=== PATIENT | female | born 1940 | race Caucasian/White ===

== ENCOUNTER 2021-07-03 12:00 | Inpatient (IN) | payer OTHER, SELFPAY ==
[2021-07-03] VITALS (7 sets, daily range): BP systolic 150–180; BP diastolic 83–100; PULSE 76–101; RESP 15–96; TEMP 36.6–36.8; O2SAT 94–100; BMI 26.5
--- NOTE | ~2021-07-03 | XR_ITS ---
EXAMINATION: XR chest 2V DATE: 07/04/2021 10:50 INDICATION: Shortness of breath TECHNIQUE: AP and lateral views of the chest are obtained. COMPARISON: 07/03/2021 FINDINGS: A diffuse interstitial pattern persists but has improved. There are trace pleural effusions . No pneumothorax is identified. Cardiomegaly is noted. There is severe thoracic spondylosis. IMPRESSION: 1. Cardiomegaly with improving pulmonary edema Reviewed, dictated and finalized at location B.
--- NOTE | ~2021-07-03 | CT_ITS ---
EXAMINATION: CT abdomen pelvis wo con EXAM DATE: 07/07/2021 09:06 INDICATION: Fever, colitis. TECHNIQUE: Spiral CT of the abdomen and pelvis was performed without contrast. Axial, coronal and s agittal images of the abdomen and pelvis were reviewed. The dose-length product (DLP) for this exami nation was 271.75 mGy-cm. The exposure was tailored according to patient size (auto mA exposure cont rol), and iterative reconstruction (ASIR) was used as additional dose reduction technique. There is no prior study for comparison. FINDINGS: The liver, spleen, adrenal glands and pancreas are unremarkable. Gallbladder is unremarkab le. No biliary obstruction. There is no nephrolithiasis or hydronephrosis. Exophytic homogeneously hyperdense left renal lesion measuring 1 cm likely hemorrhagic cyst. Another similar sized region pos terior to this probably also hemorrhagic cyst. The uterus is not identified and has likely been surg ically resected. The bladder is unremarkable. There is no retroperitoneal or pelvic lymphadenopathy . There is extensive scattered arterial sclerotic disease. The appendix is not positively visualized. There is no pericecal inflammatory change to suggest appe ndicitis. There is mild sigmoid colonic diverticulosis. There is no adjacent inflammatory change to suggest diverticulitis. There is no evidence of colonic wall edema. The stomach and small bowel are unremarkable. There is expected amount of colonic stool. No free intraperitoneal gas. There is cardiomegaly and small pericardial effusion. No pleural effusions. Bibasilar dependent groun dglass opacity, could be atelectasis but edema or pneumonia also possible. The lung bases are unrema rkable. There are no osteoblastic or osteolytic lesions identified. There is mild to moderate thorac olumbar dextroscoliosis. IMPRESSION: 1. No acute intra-abdominal findings. 2. Mild colonic diverticulosis. 3. Bibasilar groundglass opacity, could be atelectasis. Edema or pneumonia not excludable. 4. Cardiomegaly, small pericardial effusion. Reviewed, dictated and finalized at location A.
--- NOTE | ~2021-07-03 | XR_ITS ---
EXAMINATION: XR chest 1V portable DATE: 07/07/2021 06:08 INDICATION: Fever TECHNIQUE: frontal view of the chest was obtained. COMPARISON: Chest radiograph dated 07/04/2021 FINDINGS: Cardiomegaly with diffuse perihilar and lower lung predominant increased interstitial pattern most alba spicious for mild pulmonary edema although pneumonia not excludable. No pleural effusion or pneumotho rax. IMPRESSION: 1. Diffuse increased interstitial pattern most likely congestive heart failure related mild pulmonary edema versus less likely pneumonia. 2. Cardiomegaly. Reviewed, dictated and finalized at location A.
--- NOTE | ~2021-07-03 | MR_ITS ---
EXAMINATION: MR brain/brain stem wo con EXAM DATE: 07/04/2021 11:12 INDICATION: Unresponsive episode. Temporary change in awareness. Left-sided deficit. TECHNIQUE: Magnetic resonance imaging (MRI) of the brain/brain stem obtained without contrast. Sagitt al T1, axial diffusion, gradient echo (T2*), T1, T2, FLAIR sequences obtained. Correlation is made t o head CT from 07/03/2021. FINDINGS: Small old right frontoparietal lobe infarction. Small old right periventricular infarction. Small old right cerebellar infarction. Some right periventricular T2 shine through, no acute infarct ion suspected. There is mild microangiopathy and moderate cerebral atrophy. There is no acute hemorrh age seen on the T2*, a hemosiderin sensitive sequence. No intraparenchymal brain mass. The ventricle s are normal in size. There are no extra-axial collections. Flow voids are seen in the cerebral art eries on the T2-weighted sequences consistent with their expected patency. Patient has had bilateral ocular lens surgery. Soft tissue is unremarkable. Left maxillary sinus is completely opacified wi th mucoperiosteal thickening and fluid. IMPRESSION: 1. Small old right-sided infarctions. 2. Age related findings. 3. Opacified left maxillary sinus. Reviewed, dictated and finalized at location A.
--- NOTE | ~2021-07-03 | CT_ITS ---
EXAMINATION: CT brain wo con EXAM DATE: 07/03/2021 12:42 INDICATION: Falls, on blood thinners. TECHNIQUE: Spiral CT of the head was performed without contrast. Axial, coronal and sagittal images were reviewed. The dose-length product (DLP) for this examination was 605.33 mGy-cm. The exposure w as tailored according to patient size, and iterative reconstruction (ASIR) was used as additional dos e reduction technique. There is no prior study for comparison. FINDINGS: There is no acute intraparenchymal hemorrhage. No evidence of intraparenchymal brain mass lesion. No evidence of acute infarction. Please note that initial head CT has limited sensitivity f or small or acute infarctions. There is old small right frontal lobe infarction. There are 2 small o ld right cerebellar infarctions. Small old right periventricular infarction. There is mild to moderat e periventricular and subcortical hypodensity, nonspecific but probably related to small vessel ische jay disease. There is moderate to severe prominence of the sulci and ventricles related to cerebral atrophy. There is intracranial carotid arteriosclerosis. There are no extra-axial collections. T here is no mass effect or midline shift. Patient has had bilateral ocular lens surgery. Soft tissue is unremarkable. Nearly completely opacified left maxillary sinus with fluid and mucoperiosteal thi ckening. Mastoid air cells are well aerated. IMPRESSION: 1. No acute intracranial findings. 2. Chronic age related findings. 3. Old small right-sided infarctions. Reviewed, dictated and finalized at location A.
--- NOTE | ~2021-07-03 | XR_ITS ---
EXAMINATION: XR chest 1V EXAM DATE: 07/03/2021 12:47 INDICATION: Syncope, hypertension, atrial fibrillation, recent falls. TECHNIQUE: Portable AP frontal chest x-ray was obtained. There is no prior study for comparison. FINDINGS: There is cardiomegaly and pulmonary vascular congestion. No confluent consolidation, pneumo thorax or pleural effusion suspected. There are bony degenerative changes. There is aortic arterioscl erosis. IMPRESSION: 1. Cardiomegaly, pulmonary vascular congestion. Reviewed, dictated and finalized at location A.
--- NOTE | 2021-07-03 12:16 | ECG_ITS ---
Measurements Intervals [place] Rate: 72 P: [place]: 0 QRS: -5 QRSD: 86 T: -35 QT: 414 QTc: 455 Interpretive Statements ATRIAL FIBRILLATION VENTRICULAR PREMATURE COMPLEX CONSIDER INFERIOR INFARCT, AGE INDETERMINATE BORDERLINE ST-T WAVE ABNORMALITY- ANTEROLAT/HIGH LAT LEADS BASELINE ARTIFACT- I, II, III, AVR, AVL, AVF, V1, V3-V6 ABNORMAL ECG Electronically Signed On 07-03-2021 15:01:55 CDT by Kodi Gan D.O.
--- NOTE | 2021-07-03 12:19 | ED.WEAKNESS ---
HPI - Weakness General Chief complaint: Weakness Stated complaint: lower extremity weakness Time Seen by Provider: 07/03/21 12:07 Source: patient and EMS History of Present Illness HPI Narrative: 80-year-old female poor historian but history of left CVA approximately a month ago recently moved to the area. Family called EMS because patient has a history of recent falls. Patient states she does not remember falling--she just ends up on the ground. She denies tripping or losing her balance. She denies syncope or lightheadedness. She says she used to be on medicines for high blood pressure but she is not now. She is not on medicines for diabetes. She says she is on a blood thinner but does not know what it is. No fever, no slurred speech, intermittent headache none now. Patient denies chest pain, no shortness of breath, no nausea no vomiting. States she has not been eating because she has not felt like it. Patient recently moved in with her sons and used to live on her own in [place]. She has recently completed PT for her left CVA. Related Data Home Medications Medication Instructions Recorded Confirmed apixaban [Eliquis] 2.5 mg BID 07/03/21 07/03/21 aspirin [Adult Aspirin] 81 mg PO DAILY 07/03/21 07/03/21 atorvastatin 80 mg DAILY 07/03/21 07/03/21 doxazosin 2 mg HS 07/03/21 07/03/21 levothyroxine 125 mcg DAILY 07/03/21 07/03/21 losartan-hydrochlorothiazide 1 tablet DAILY 07/03/21 07/03/21 metoprolol succinate 100 mg PO DAILY 07/03/21 07/03/21 Allergies Allergy/AdvReac Type Severity Reaction Status Date / Time No Known Drug Allergies Allergy Unknown Unknown Verified 07/03/21 12:39 Review of Systems Review of Systems: CONSTITUTIONAL: no fever, alert, no appartent distress EYES: no vision changes, no eye pain ENT: no rhinorrhea, no sore throat, no difficulty swallowing CARDIOVASCULAR: no chest pain, no leg edema, no palpitations RESPIRATORY: no cough, no shortness of breath, no hemoptysis GASTROINTESTINAL: no abdominal pain, no nausea, no vomiting, no diarrhea, does complain of decreased appetitie GENITOURINARY: no flank pain, no dysuria, no hematuria SKIN: no rash, no jaundice MUSCULOSKELETAL: no back pain, no trauma. NEUROLOGIC: occasional headache, no dizziness, L sided focal weakness upper > lower PSYCHIATRIC: No hallucinations, no suicidal ideation [facility] Past Medical History Medical History (Updated 07/03/21 @ 22:58 by Rebecca Sharp PA-C) Cerebrovascular accident Chronic anticoagulation Hyperlipidemia Hypertension Hypothyroidism Paroxysmal atrial fibrillation Surgical History Surgical History (Updated 07/03/21 @ 22:53 by Rebecca Sharp PA-C) History of right-sided carotid endarterectomy History of thyroidectomy Family History Family History (Updated 07/03/21 @ 22:53 by Rebecca Sharp PA-C) Other Cerebrovascular accident Hypertension Social History Social History (Updated 07/03/21 @ 22:54 by Rebecca Sharp PA-C) Social History: Surrogate decision-maker: Lorne Grace, daughter and son. CODE STATUS: Full code. Smoking status: Former smoker Alcohol intake: never Substance use: never Additional living arrangements comments: Currently living with her son in [place]. Additional occupation/education comments: Retired. Exam Narrative: General: alert, afebrile, answering all questions appropriately Head: normocephalic, atraumatic Eyes: EOMI bilaterally, anicteric, no injection ENT: dry mucous membranes, oropharynx patent, no rhinorrhea Neck: supple, trachea midline, no JVD Chest: equal chest rise bilaterally, no chest wall trauma noted Lungs: clear to auscultation bilaterally, respirations unlabored CV: irregular, no ISREAL B, calf size equal bilaterally Abd: soft, non-distended, non-tender, no rebound, no gaurding, negative Ellis's EXT: LUE: contraction distal LUE with mild swelling, radial 2+ no deformity noted, L upper ext distal weakness
[2021-07-03 12:40] LABS: Basophils Percent Auto 0.2 % (0.2-1.2); Hematocrit 33.7 % (37.0-47.0); Hemoglobin 11.2 g/dL (12.0-15.0); Immature Granulocyte Absolute 0.02 K/mm3 (0.00-0.031); Immature Granulocyte Percent A 0.4 % (0-0.5); Lymphocytes Absolute Auto 0.51 K/mm3 (0.9-3.2); Lymphocytes Percent Auto 10.7 % (18.3-44.2); Mean Corpuscular HGB Conc 33.2 g/dl (32-36); Mean Corpuscular Hemoglobin 29.2 pg (26-34); Mean Platelet Volume 9.8 fl (7.4-10.4); Monocytes Absolute Auto 1.2 K/mm3 (0.1-0.6); Monocytes Percent Auto 24.9 % (2.6-8.5); Neutrophils Absolute Auto 3.1 K/mm3 (1.3-6.7); Neutrophils Percent Auto 63.8 % (45.5-73.1); Platelet Count Result 161 k/mm3 (150-375); Red Blood Count 3.83 M/mm3 (4.2-5.4); Red Cell Distribution Width 13.5 % (11.5-14.5); White Blood Count 4.8 K/mm3 (4.5-10.0)
[2021-07-03] MEDS: SODIUM CHLORIDE 0.9% IV 1,000 ML 999 ML IV CONT (12:48)
[2021-07-03 13:54] LABS: INR 1.4; Prothrombin Time 17.1 Seconds (11.1-14.7)
[2021-07-03 13:55] LABS: Partial Thromboplastin Time 39.8 SECONDS (22.3-36.8)
[2021-07-03 14:14] LABS: NT Pro B Type Natriuretic Pept 9260 pg/mL (5-100)
[2021-07-03] MEDS: FUROSEMIDE INJ 40 MG/4 ML VIAL 20 MG IV PUSH (14:22)
[2021-07-03 14:34] LABS: Add Urine Microscopic? YES; Appearance Urine Cloudy (Clear); Bacteria Urine Trace /hpf; Bilirubin Urine Negative (Negative); Blood Urine Negative (Negative); Color Urine Yellow (Yellow); Glucose Urine UA Negative (Negative); Ketones Urine Negative (Negative); Leukocyte Esterase Ur 1+ LEU/UL (Negative); Mucus Urine Rare /lpf; Nitrate Urine Negative (Negative); Protein Urine 2+ mg/dL (Negative); Specific Grav Ur 1.013 (1.001-1.035); Squamous Epithelial Cell Urine Few /hpf (Few); Urobilinogen Urine Negative mg/dL (<2.0); WBC Urine 16-20 /hpf
[2021-07-03 14:35] LABS: Alanine Aminotransferase 18 U/L (4-35); Albumin Level 4.4 g/dL (3.5-5.1); Alkaline Phosphatase 93 U/L (38-126); Anion Gap 11 mmol/L (8-16); Aspartate Amino Transferase 26 U/L (14-36); Bilirubin,Total 1.2 mg/dL (0.2-1.3); Blood Urea Nitrogen 21 mg/dL (7-17); Calcium 9.4 mg/dL (8.4-10.2); Carbon Dioxide 28 mmol/L (22-30); Chloride 97 mmol/L (98-107); Estimated CRCL calculation 33 ml/min; Estimated Glomerular Filt Rate 53; Glucose 127 mg/dL (65-110); Lipase 169 U/L (23-300); Magnesium 1.8 mg/dL (1.6-2.3); Potassium 4.4 mmol/L (3.4-5.0); Sodium 136 mmol/L (137-145)
[2021-07-03 14:37] LABS: Troponin I 0.023 ng/mL (0.000-0.034)
--- NOTE | 2021-07-03 16:03 | PC.NURSE ---
Dr. Rodriguez sated she did not need a blood cultures on patient at this time,
--- NOTE | 2021-07-03 16:50 | PC.NURSE ---
Gave report to Ranjeet SCHWARTZ no further question or concerns
[2021-07-03 17:30] LABS: Free T4 Free Thyroxine Reflex 1.14 ng/dL (0.78-2.19)
--- NOTE | 2021-07-03 17:52 | ADMGEN ---
This patient, Ambar Grace, was admitted to 2 Medical Room 244-. Patient/family oriented to hospital policies and general routines including ID bracelet, bed and alarms, visiting hours, pain management, procedures, bathroom and other care routines, personal items, smoking policy, room service/diet, and visiting hours. Information on how to activate the Rapid Response Team has been discussed. Patient/Family are encouraged to report perceived risks to care and to ask questions if they do not understand what they are told or what they should do.
[2021-07-03 18:10] LABS: Total Triiodothyronine (T3) 0.67 NG/ML (0.97-1.69)
[2021-07-03 20:19] LABS: Troponin I 0.021 ng/mL (0.000-0.034)
--- NOTE | 2021-07-03 22:00 | PM.IMHP ---
H&P: HPI History of Present Illness Date/Time: 07/03/21 22:00 Chief Complaint: Weak and falling. Narrative: This is a very pleasant 80-year-old female with history of hypertension, hyperlipidemia, paroxysmal atrial fibrillation on long-term anticoagulation, dyslipidemia, and hypothyroidism post thyroidectomy for thyroid cancer presented to the emergency department earlier today for evaluation of weakness and several falls. The patient had a stroke a couple of months ago with residual left-sided deficit though her left upper extremity is much more affected. She did well in rehab and she has since been living with her son and getting up and about with a walker. Unfortunately since Sunday she has been feeling increasingly weak, mainly in her legs, and she has had 5 falls in the same time. Luckily she has been able to tell that she is going to fall and she has been able to lower herself to the ground without injury. Unfortunately she is difficulties getting herself up and is requiring help from her son. Upon arrival to the emergency department her vital signs were stable however blood pressures have been running a bit high. Head CT was unremarkable. Chest x-ray did not show any evidence of pneumonia but did show some pulmonary vascular congestion. Urinalysis was abnormal however she has not had any dysuria but she does endorse frequency. She denies head trauma or loss of consciousness. No fever, chills, or sweats. No chest pain, pleuritic pain or palpitations. No orthopnea, PND, or lower extremity edema. No cough. No nausea, vomiting, or diarrhea. Review of Systems Review of Systems: 12 systems were reviewed. The patient has left-sided deficits from her stroke several months ago, left upper extremity is much more affected than the left. Her left hand is contracted and she cannot use it very much. She has been able to ambulate with a walker however. No epistaxis, hematemesis, melena, hematochezia, or hematuria. Except as documented, all other systems were reviewed and are negative. [facility] Past Medical History Medical History (Updated 07/03/21 @ 22:58 by Rebecca Sharp PA-C) Cerebrovascular accident Chronic anticoagulation Hyperlipidemia Hypertension Hypothyroidism Paroxysmal atrial fibrillation Surgical History Surgical History (Updated 07/03/21 @ 22:53 by Rebecca Sharp PA-C) History of right-sided carotid endarterectomy History of thyroidectomy Family History Family History (Updated 07/03/21 @ 22:53 by Rebecca Sharp PA-C) Other Cerebrovascular accident Hypertension Social History Social History (Updated 07/03/21 @ 22:54 by Rebecca Sharp PA-C) Social History: Surrogate decision-maker: Lorne Grace, daughter and son. CODE STATUS: Full code. Smoking status: Former smoker Alcohol intake: never Substance use: never Additional living arrangements comments: Currently living with her son in [place]. Additional occupation/education comments: Retired. Meds Home Medications and Allergies Home Medications Medication Instructions Recorded Confirmed Type apixaban [Eliquis] 2.5 mg BID 07/03/21 07/03/21 History aspirin [Adult Aspirin] 81 mg PO DAILY 07/03/21 07/03/21 History atorvastatin 80 mg DAILY 07/03/21 07/03/21 History doxazosin 2 mg HS 07/03/21 07/03/21 History levothyroxine 125 mcg DAILY 07/03/21 07/03/21 History losartan-hydrochlorothiazide 1 tablet DAILY 07/03/21 07/03/21 History metoprolol succinate 100 mg PO DAILY 07/03/21 07/03/21 History Allergies Allergy/AdvReac Type Severity Reaction Status Date / Time No Known Drug Allergies Allergy Unknown Unknown Verified 07/03/21 12:39 Vital Signs Vital Signs - 24 hr 07/03/21 11:54 07/03/21 12:05 07/03/21 17:04 Temperature 98.3 F Pulse Rate 82 81 89 Respiratory Rate 20 19 15 Blood Pressure 157/83 H 157/83 H 180/83 H Pulse Oximetry 94 95 100 07/03/21 17:49 07/03/21 19:20 Temperature 97.9 F 97.8
[2021-07-03 22:24] LABS: Troponin I 0.017 ng/mL (0.000-0.034)
[2021-07-04] VITALS (13 sets, daily range): BP systolic 119–170; BP diastolic 60–78; PULSE 71–99; RESP 14–18; TEMP 36.1–36.8; O2SAT 95–99
[2021-07-04 05:12] LABS: Basophils Percent Auto 0.2 % (0.2-1.2); Hematocrit 39.2 % (37.0-47.0); Hemoglobin 12.8 g/dL (12.0-15.0); Immature Granulocyte Absolute 0.03 K/mm3 (0.00-0.031); Immature Granulocyte Percent A 0.5 % (0-0.5); Mean Corpuscular HGB Conc 32.7 g/dl (32-36); Mean Corpuscular Hemoglobin 29.5 pg (26-34); Mean Corpuscular Volume 90.3 fl (80-100); Monocytes Percent Auto 16.9 % (2.6-8.5); Neutrophils Absolute Auto 4.3 K/mm3 (1.3-6.7); Neutrophils Percent Auto 75.4 % (45.5-73.1); Platelet Count Result 170 k/mm3 (150-375); Red Blood Count 4.34 M/mm3 (4.2-5.4); Red Cell Distribution Width 13.3 % (11.5-14.5); White Blood Count 5.7 K/mm3 (4.5-10.0)
[2021-07-04 05:14] LABS: Alanine Aminotransferase 19 U/L (4-35); Albumin Level 4.5 g/dL (3.5-5.1); Alkaline Phosphatase 97 U/L (38-126); Anion Gap 11 mmol/L (8-16); Aspartate Amino Transferase 30 U/L (14-36); Bilirubin,Total 0.8 mg/dL (0.2-1.3); Blood Urea Nitrogen 25 mg/dL (7-17); Calcium 9.2 mg/dL (8.4-10.2); Carbon Dioxide 27 mmol/L (22-30); Chloride 95 mmol/L (98-107); Estimated CRCL calculation 28 ml/min; Estimated Glomerular Filt Rate 53; Glucose 136 mg/dL (65-110); Magnesium 1.8 mg/dL (1.6-2.3); Potassium 3.6 mmol/L (3.4-5.0); Sodium 133 mmol/L (137-145)
[2021-07-04] MEDS: LEVOTHYROXINE SODIUM 125 MCG TABLET BY MOUTH (05:29)
[2021-07-04] MEDS: LOSARTAN POTASSIUM 100 MG TABLET BY MOUTH (08:51)
[2021-07-04] MEDS: ASPIRIN 81 MG CHEWABLE TABLET PO (08:51)
[2021-07-04] MEDS: METOPROLOL SUCCINATE EXT REL 100 MG TABCR PO (08:51)
[2021-07-04] MEDS: hydroCHLOROthiazide 25 MG TABLET BY MOUTH (08:51)
[2021-07-04] MEDS: APIXABAN 2.5 MG TABLET BY MOUTH ×2 (08:51→17:11)
--- NOTE | 2021-07-04 09:30 | PC.NURSE ---
Therapy was working with patient and they called out to the nurses station for assistance. Upon entering room, patient was sitting in the chair, vomiting/unresponsive. Rapid response was called. Therapy stated they had placed patient on bedpan while she was sitting in the chair due to being incontinent of stool. Patient was lifted back to bed by staff and sat up. She fairly quickly came back around and was able to respond to staff. However, there was a prominent left facial droop noted, left sided weakness, drowsiness. Hospitalist, Dedra Lugo was notified and came to bedside to assess patient. Obtained orders for MRI w/o and stat EKG. Will monitor patient.
[2021-07-04 09:47] LABS: Glucose Point of Care 222 mg/dl (65-105)
--- NOTE | 2021-07-04 09:49 | ECG_ITS ---
Measurements Intervals [place] Rate: 86 P: [place]: 0 QRS: -8 QRSD: 81 T: -31 QT: 370 QTc: 443 Interpretive Statements ATRIAL FIBRILLATION CONSIDER INFERIOR INFARCT, AGE INDETERMINATE NONSPECIFIC ST & T-WAVE ABNORMALITY- ANTEROLAT/HIGH LAT LEADS BASELINE WANDER- I, II, V3-V4 ABNORMAL ECG Electronically Signed On 07-04-2021 10:35:43 CDT by Kodi Gan D.O.
[2021-07-04 10:41] LABS: Troponin I 0.021 ng/mL (0.000-0.034)
[2021-07-04] MEDS: SODIUM CHLORIDE 0.9% IV 500 ML IV CONT (11:33)
[2021-07-04 12:28] LABS: Anion Gap 13 mmol/L (8-16); Blood Urea Nitrogen 30 mg/dL (7-17); Carbon Dioxide 26 mmol/L (22-30); Chloride 94 mmol/L (98-107); Estimated CRCL calculation 24 ml/min; Estimated Glomerular Filt Rate 43; Glucose 241 mg/dL (65-110); Magnesium 1.8 mg/dL (1.6-2.3); Potassium 3.8 mmol/L (3.4-5.0); Sodium 133 mmol/L (137-145)
[2021-07-04 14:29] LABS: Creatine Kinase 62 U/L (30-135)
--- NOTE | 2021-07-04 15:35 | P.PNIM_ITS ---
Progress Note: A&P Assessment and Plan (1) Syncope: Code(s): R55 - Syncope and collapse Status: Acute Assessment and Plan: Episode today most consistent with vasovagal syncope. Please see subjective for further details. * Received 500 cc IV fluid bolus * Implement fall precautions * Continue to monitor on telemetry (2) Orthostatic hypotension: Code(s): I95.1 - Orthostatic hypotension Status: Acute Assessment and Plan: Noted to have 22 point drop in systolic BP from sitting to standing and was symptomatic with this. * IV fluid bolus as above * Chi hose * Fall precautions * Repeat orthostatics tomorrow * Hold hydrochlorothiazide and losartan (3) Vomiting and diarrhea: Code(s): R11.10 - Vomiting, unspecified; R19.7 - Diarrhea, unspecified Status: Acute Assessment and Plan: Occurred during syncopal episode. * Etiology for this not entirely clear. May be gastroenteritis as the etiology for her symptoms and overall dehydration. * Stool cultures pending * Will initiate metronidazole in addition to her Rocephin to cover for possible gastroenteritis * Encourage p.o. fluid intake * Antiemetics available as needed (4) Abnormal urinalysis: Code(s): R82.90 - Unspecified abnormal findings in urine Status: Acute Assessment and Plan: UA abnormal on presentation and she endorsed urinary frequency * Continue IV Rocephin * Urine culture pending, await results and tailor antibiotics accordingly (5) Falls: Qualifiers: Encounter type: initial encounter Qualified Code(s): W19.XXXA - Unspecified fall, initial encounter Code(s): W19.XXXA - Unspecified fall, initial encounter Status: Acute Assessment and Plan: She had been having falls at home, with reports of 5 falls in the 3 days prior to presentation. She has not sustained any injuries and has lowered herself to the ground before she fell entirely * Fall precautions as above * Appreciate PT/OT evals * May be related to orthostasis; plan as above (6) Weakness: Code(s): R53.1 - Weakness Status: Acute Assessment and Plan: She has had residual left-sided weakness following her stroke a couple months ago. Also has more recently noticed weakness of her legs * Continue PT/OT as above (7) Paroxysmal atrial fibrillation: Code(s): I48.0 - Paroxysmal atrial fibrillation Status: Acute Assessment and Plan: Rate is controlled * Continue Eliquis * Continue metoprolol succinate * Monitor on telemetry (8) Pulmonary vascular congestion: Code(s): R09.89 - Other specified symptoms and signs involving the circulatory and respiratory systems Status: Acute Assessment and Plan: Chest x-ray on presentation showed evidence of pulmonary vascular congestion though she was asymptomatic. Repeat chest x-ray performed following rapid response that did demonstrate improving pulmonary edema * She did receive a 500 cc IV fluid bolus, though it seems she tolerated this well and remains asymptomatic * Will avoid further IV fluids at this time to prevent over hydration * Monitor volume status closely * Records have been requested to review most recent echocardiogram Subjective Date/time seen: 07/04/21 15:35 Interval history: Date of service: 07/04/2021 Ambar Grace is 80-year-old female with a history of recent CVA in April 2021, hypertension, h
--- NOTE | 2021-07-04 15:35 | PM.IMPN ---
Progress Note: A&P Assessment and Plan (1) Syncope: Code(s): R55 - Syncope and collapse Status: Acute Assessment and Plan: Episode today most consistent with vasovagal syncope. Please see subjective for further details. Received 500 cc IV fluid bolus Implement fall precautions Continue to monitor on telemetry (2) Orthostatic hypotension: Code(s): I95.1 - Orthostatic hypotension Status: Acute Assessment and Plan: Noted to have 22 point drop in systolic BP from sitting to standing and was symptomatic with this. IV fluid bolus as above Chi hose Fall precautions Repeat orthostatics tomorrow Hold hydrochlorothiazide and losartan (3) Vomiting and diarrhea: Code(s): R11.10 - Vomiting, unspecified; R19.7 - Diarrhea, unspecified Status: Acute Assessment and Plan: Occurred during syncopal episode. Etiology for this not entirely clear. May be gastroenteritis as the etiology for her symptoms and overall dehydration. Stool cultures pending Will initiate metronidazole in addition to her Rocephin to cover for possible gastroenteritis Encourage p.o. fluid intake Antiemetics available as needed (4) Abnormal urinalysis: Code(s): R82.90 - Unspecified abnormal findings in urine Status: Acute Assessment and Plan: UA abnormal on presentation and she endorsed urinary frequency Continue IV Rocephin Urine culture pending, await results and tailor antibiotics accordingly (5) Falls: Qualifiers: Encounter type: initial encounter Qualified Code(s): W19.XXXA - Unspecified fall, initial encounter Code(s): W19.XXXA - Unspecified fall, initial encounter Status: Acute Assessment and Plan: She had been having falls at home, with reports of 5 falls in the 3 days prior to presentation. She has not sustained any injuries and has lowered herself to the ground before she fell entirely Fall precautions as above Appreciate PT/OT evals May be related to orthostasis; plan as above (6) Weakness: Code(s): R53.1 - Weakness Status: Acute Assessment and Plan: She has had residual left-sided weakness following her stroke a couple months ago. Also has more recently noticed weakness of her legs Continue PT/OT as above (7) Paroxysmal atrial fibrillation: Code(s): I48.0 - Paroxysmal atrial fibrillation Status: Acute Assessment and Plan: Rate is controlled Continue Eliquis Continue metoprolol succinate Monitor on telemetry (8) Pulmonary vascular congestion: Code(s): R09.89 - Other specified symptoms and signs involving the circulatory and respiratory systems Status: Acute Assessment and Plan: Chest x-ray on presentation showed evidence of pulmonary vascular congestion though she was asymptomatic. Repeat chest x-ray performed following rapid response that did demonstrate improving pulmonary edema She did receive a 500 cc IV fluid bolus, though it seems she tolerated this well and remains asymptomatic Will avoid further IV fluids at this time to prevent over hydration Monitor volume status closely Records have been requested to review most recent echocardiogram Subjective Date/time seen: 07/04/21 15:35 Interval history: Date of service: 07/04/2021 Ambar Grace is 80-year-old female with a history of recent CVA in April 2021, hypertension, hyperlipidemia, hypothyroidism, and paroxysmal atrial fibrillation on chronic anticoagulation who is seen in follow-up for weakness and falling. I was called to the patient's room today after a rapid response was called. It sounds as though she was working with therapy and she needed to have a bowel movement. They put her on a bedpan in the chair because she was feeling lightheaded. She had a diarrheal stool and then became unresponsive. She had an episode of emesis in which she threw up her breakfast.
[2021-07-04] MEDS: metroNIDAZOLE 500 MG/ISO 100ML 500 MG/100 ML BAG 100 MG IVPB (17:11)
[2021-07-04] MEDS: ATORVASTATIN 40 MG TABLET 80 MG BY MOUTH (20:57)
[2021-07-04] MEDS: DOXAZOSIN MESYLATE 2 MG TABLET BY MOUTH (20:57)
[2021-07-05] VITALS (15 sets, daily range): BP systolic 102–130; BP diastolic 60–80; PULSE 65–93; RESP 14–20; TEMP 36.4–36.9; O2SAT 93–99
--- NOTE | 2021-07-05 | ECHO_ITS ---
Patient Info Name: Ambar Grace Age: 80 years : 1940 Gender: Female Ht: 60 in Wt: 129 lbs BSA: 1.59 m2 HR: 78 bpm BP: 108 / 62 mmHg Heart Rhythm: Sinus Rhythm Technical Quality: Good Exam Date: 07/05/2021 3:06 PM Exam Location: [facility] [place] Card Pulmonary Patient Status: Inpatient Admit Date: 07/03/2021 Staff Ordering Physician: Nancy Clemente MD Telemarketing Supervisor: Keily Rangel RDCS Attending Provider: Dedra Lugo PA-C Referring Physician: Bryn BARNARD; Exam Type: CA echo doppler color flow Study Info Indications - PULMONARY CONGESTION Complete two-dimensional, color flow and Doppler transthoracic echocardiogram is performed. Summary 1. Complete two-dimensional, color flow and Doppler transthoracic echocardiogram is performed. 2. Left ventricular chamber dimension is normal. 3. Left ventricular systolic function is normal, estimated at 60-65%. 4. There is mildly increased left ventricular wall thickness. 5. Left atrial chamber dimension is moderately enlarged. 6. There is mild to moderate mitral valve regurgitation. 7. There is moderate tricuspid valve regurgitation. 8. Mild pulmonary hypertension, estimated pulmonary arterial systolic pressure is 39 mmHg. Left Ventricle Left ventricular chamber dimension is normal. Left ventricular systolic function is normal, estimated at 60-65%. There is mildly increased left ventricular wall thickness. The left ventricular diastolic function is abnormal. Right Ventricle Right ventricular chamber dimension is normal. Right ventricular systolic function is normal. Left Atria Left atrial chamber dimension is moderately enlarged. Right Atria Right atrial chamber dimension is normal. Aortic Valve The aortic valve is trileaflet. There is mild aortic valve sclerosis. There is no aortic valve stenosis. There is no aortic valve regurgitation. Pulmonic Valve The pulmonic valve is not well visualized. There is mild pulmonic regurgitation. Mitral Valve The mitral valve has normal leaflets. There is mild to moderate mitral valve regurgitation. The mitral valve annulus is mildly calcified. Tricuspid Valve The tricuspid valve leaflets are normal. There is moderate tricuspid valve regurgitation. Mild pulmonary hypertension, estimated pulmonary arterial systolic pressure is 39 mmHg. Pericardium/Pleural The pericardium appears normal. There is trivial pericardial effusion. Inferior Vena Cava Normal inferior vena cava with >50% collapse upon inspiration consistent with normal right atrial pressure, 5 mmHg. Aorta The aortic root size at the sinus of Valsalva is normal. There is mild-moderate aortic atherosclerosis. Left Ventricular Outflow Tract Name Value Normal LVOT 2D LVOT Diameter 2.0 cm LVOT Doppler LVOT Peak Gradient 3 mmHg LVOT Mean Gradient 1 mmHg LVOT VTI 16 cm LVOT VTI/AV VTI Ratio 0.8 LVOT Stroke Volume 49 ml LVOT CO 3.9 l/min
[2021-07-05] MEDS: metroNIDAZOLE 500 MG/ISO 100ML 500 MG/100 ML BAG 100 MG IVPB ×3 (01:07→17:27)
[2021-07-05] MEDS: LEVOTHYROXINE SODIUM 125 MCG TABLET BY MOUTH (05:32)
[2021-07-05 05:41] LABS: Hematocrit 36.7 % (37.0-47.0); Mean Corpuscular HGB Conc 32.7 g/dl (32-36); Mean Corpuscular Hemoglobin 28.8 pg (26-34); Mean Corpuscular Volume 88.2 fl (80-100); Mean Platelet Volume 9.8 fl (7.4-10.4); Platelet Count Result 163 k/mm3 (150-375); Red Blood Count 4.16 M/mm3 (4.2-5.4); Red Cell Distribution Width 13.3 % (11.5-14.5); White Blood Count 4.4 K/mm3 (4.5-10.0)
[2021-07-05 05:50] LABS: Anion Gap 12 mmol/L (8-16); Blood Urea Nitrogen 40 mg/dL (7-17); Calcium 8.7 mg/dL (8.4-10.2); Carbon Dioxide 25 mmol/L (22-30); Chloride 99 mmol/L (98-107); Estimated CRCL calculation 21 ml/min; Estimated Glomerular Filt Rate 36; Glucose 115 mg/dL (65-110); Potassium 3.7 mmol/L (3.4-5.0); Sodium 136 mmol/L (137-145)
[2021-07-05] MEDS: ASPIRIN 81 MG CHEWABLE TABLET PO (08:59)
[2021-07-05] MEDS: METOPROLOL SUCCINATE EXT REL 100 MG TABCR PO (08:59)
[2021-07-05] MEDS: APIXABAN 2.5 MG TABLET BY MOUTH ×2 (08:59→16:05)
[2021-07-05] MEDS: SODIUM CHLORIDE 0.9% IV 1,000 ML 75 ML IV CONT (11:15)
--- NOTE | 2021-07-05 12:12 | PM.IMPN ---
Progress Note: A&P Assessment and Plan (1) Syncope: Code(s): R55 - Syncope and collapse Status: Acute Assessment and Plan: Episode today most consistent with vasovagal syncope. Orthostatics show patient is tilting. Pt is to continue on NS at 75ccper hour (2) Orthostatic hypotension: Code(s): I95.1 - Orthostatic hypotension Status: Acute Assessment and Plan: Pt having daily orthostatics Hold hydrochlorothiazide and losartan Continue iv fluids (3) Vomiting and diarrhea: Code(s): R11.10 - Vomiting, unspecified; R19.7 - Diarrhea, unspecified Status: Acute Assessment and Plan: Occurred during syncopal episode. Continue iv fluids Pt started on flagyl IV stool is pending (4) Abnormal urinalysis: Code(s): R82.90 - Unspecified abnormal findings in urine Status: Acute Assessment and Plan: UA abnormal on presentation and she endorsed urinary frequency UC is negative can stop IV rocephin (5) Falls: Qualifiers: Encounter type: initial encounter Qualified Code(s): W19.XXXA - Unspecified fall, initial encounter Code(s): W19.XXXA - Unspecified fall, initial encounter Status: Acute Assessment and Plan: She had been having falls at home, with reports of 5 falls in the 3 days prior to presentation. Recent CVA (6) Weakness: Code(s): R53.1 - Weakness Status: Acute Assessment and Plan: She has had residual left-sided weakness following her stroke a couple months ago. Continue PT/OT. (7) Paroxysmal atrial fibrillation: Code(s): I48.0 - Paroxysmal atrial fibrillation Status: Acute Assessment and Plan: Rate is controlled pt is on metoprolol for rate control and Eliquis for anticoagulation Chronic and stable (8) Pulmonary vascular congestion: Code(s): R09.89 - Other specified symptoms and signs involving the circulatory and respiratory systems Status: Acute Assessment and Plan: Chest x-ray on presentation showed evidence of pulmonary vascular congestion. Pt is still tilting change continuos NS infusion to bolus dose of fluids, order ECHO Additional Plan When pt is less orthostatic she can tolerate more PT/ OT and can be discharged home with home health nurses. I did not start pt on midodrine given her recent stroke. Subjective Date/time seen: 07/05/21 12:12 Interval history: 80-year-old female with history of hypertension, hyperlipidemia, paroxysmal atrial fibrillation on long-term anticoagulation, dyslipidemia, and hypothyroidism post thyroidectomy for thyroid cancer presented to the emergency department earlier today for evaluation of weakness and several falls. Pt having nausea and diarrhea and her bp are running low. Pt is also being treated for UTI Review of Systems Review of Systems: All systems reviewed & are unremarkable except as noted in HPI and below Exam Const: General: other (Tired weak ) Orientation/consciousness: oriented to person HENMT: Head: normal to inspection Resp: Effort & Inspection: no respiratory distress Auscultation: no rhonchi and no wheezes Cardio: Rate: regular rate Rhythm: regular rhythm GI: Inspection: normal to inspection GI Palp: No abdominal tenderness, No Guarding due to palpation present (GI) and No Hepatomegaly present Auscultation: normal bowel sounds Neuro: General: oriented to person Objective Data Vital Signs Vital Signs: Vital Signs - 24 hr 07/04/21 14:05 07/04/21 16:00 07/04/21 18:00 Temperature 36.3 C L 36.1 C L Pulse Rate 88 84 84 Respiratory Rate 14 16 Blood Pressure 120/60 170/68 H Pulse Oximetry 98 99 07/04/21 20:00 07/04/21 20:24 07/05/21 00:00 Temperature 36.6 C Pulse Rate 83 84 83 Respiratory Rate 14 Blood Pressure 150/77 H Pulse Oximetry 96 07/05/21 00:51 07/05/21 04:00 07/05/21 05:25 Temperature 36.9 C 36.4 C Pulse Rate
--- NOTE | 2021-07-05 12:41 | PCOTNOTE ---
Spoke with nursing regarding continuation of care after syncope episode on 07/04. Nursing reports it is safe to continue with treatment. Therapy will continue to see pt. for current frequency.
[2021-07-05] MEDS: SODIUM CHLORIDE 0.9% IV 500 ML IV CONT (14:27)
[2021-07-05] MEDS: ATORVASTATIN 40 MG TABLET 80 MG BY MOUTH (21:06)
[2021-07-06] VITALS (14 sets, daily range): BP systolic 107–183; BP diastolic 54–82; PULSE 69–98; RESP 16–20; TEMP 36.4–37.2; O2SAT 93–100
[2021-07-06] MEDS: metroNIDAZOLE 500 MG/ISO 100ML 500 MG/100 ML BAG 100 MG IVPB ×3 (02:14→17:19)
[2021-07-06] MEDS: LEVOTHYROXINE SODIUM 125 MCG TABLET BY MOUTH (06:33)
[2021-07-06 09:11] LABS: Anion Gap 8 mmol/L (8-16); Blood Urea Nitrogen 36 mg/dL (7-17); Calcium 8.4 mg/dL (8.4-10.2); Carbon Dioxide 23 mmol/L (22-30); Chloride 105 mmol/L (98-107); Estimated CRCL calculation 28 ml/min; Estimated Glomerular Filt Rate 53; Glucose 138 mg/dL (65-110); Potassium 3.7 mmol/L (3.4-5.0); Sodium 136 mmol/L (137-145)
[2021-07-06] MEDS: APIXABAN 2.5 MG TABLET BY MOUTH ×2 (09:19→17:19)
[2021-07-06] MEDS: METOPROLOL SUCCINATE EXT REL 100 MG TABCR PO (09:19)
[2021-07-06] MEDS: ASPIRIN 81 MG CHEWABLE TABLET PO (09:19)
--- NOTE | 2021-07-06 11:04 | PM.IMPN ---
Progress Note: A&P Assessment and Plan (1) Syncope: Code(s): R55 - Syncope and collapse Status: Acute Assessment and Plan: Pt had vasovagal syncopal episode two days ago Yesterday her BP were running low Today pt is still symptomatic with diarrhea (2) Orthostatic hypotension: Code(s): I95.1 - Orthostatic hypotension Status: Acute Assessment and Plan: Pt having daily orthostatics Hold hydrochlorothiazide and losartan Sp fluid boluses advised to drink plenty orally (3) Vomiting and diarrhea: Code(s): R11.10 - Vomiting, unspecified; R19.7 - Diarrhea, unspecified Status: Acute Assessment and Plan: Occurred during syncopal episode. Pt started on flagyl IV Stool is pending, await cdiff result, await TSH result imodium started for diarrhea (4) Abnormal urinalysis: Code(s): R82.90 - Unspecified abnormal findings in urine Status: Acute Assessment and Plan: UA abnormal on presentation and she endorsed urinary frequency UC is negative can stop IV rocephin (5) Falls: Qualifiers: Encounter type: initial encounter Qualified Code(s): W19.XXXA - Unspecified fall, initial encounter Code(s): W19.XXXA - Unspecified fall, initial encounter Status: Acute Assessment and Plan: She had been having falls at home, with reports of 5 falls in the 3 days prior to presentation. Recent CVA Pt had a recent stroke and has been having falls at home. (6) Weakness: Code(s): R53.1 - Weakness Status: Acute Assessment and Plan: She has had residual left-sided weakness following her stroke a couple months ago. Continue PT/OT. (7) Paroxysmal atrial fibrillation: Code(s): I48.0 - Paroxysmal atrial fibrillation Status: Acute Assessment and Plan: Rate is controlled pt is on metoprolol for rate control and Eliquis for anticoagulation Chronic and stable (8) Pulmonary vascular congestion: Code(s): R09.89 - Other specified symptoms and signs involving the circulatory and respiratory systems Status: Acute Assessment and Plan: Chest x-ray on presentation showed evidence of pulmonary vascular congestion. Pt had echo see report Additional Plan Subjective Date/time seen: 07/06/21 11:04 Interval history: 80-year-old female with history of hypertension, hyperlipidemia, paroxysmal atrial fibrillation on long-term anticoagulation, dyslipidemia, and hypothyroidism post thyroidectomy for thyroid cancer presented to the emergency department earlier today for evaluation of weakness and several falls. Pt having nausea and diarrhea, possibly related to gastroenteritis. Pt started on IV flagyl awaiting stool cultures. Pt had fluid boluses for soft Bps. Pt had a large episode of diarrhea today on bed and floor does not feel well. Review of Systems Review of Systems: All systems reviewed & are unremarkable except as noted in HPI and below Exam Const: General: other (Tired weak ) Orientation/consciousness: oriented to person HENMT: Head: normal to inspection Resp: Effort & Inspection: no respiratory distress Auscultation: no rhonchi and no wheezes Cardio: Rate: regular rate Rhythm: regular rhythm GI: Inspection: normal to inspection Auscultation: normal bowel sounds Neuro: General: oriented to person Objective Data Vital Signs Vital Signs: Vital Signs - 24 hr 07/05/21 12:00 07/05/21 14:40 07/05/21 16:00 Temperature 36.5 C Pulse Rate 83 84 89 Respiratory Rate 20 Blood Pressure 128/70 Pulse Oximetry 99 07/05/21 18:00 07/05/21 20:00 07/05/21 20:56 Temperature 36.6 C 36.8 C Pulse Rate 87 87 93 Respiratory Rate 16 16 Blood Pressure 125/63 129/73 Pulse Oximetry 96 95 07/06/21 00:00 07/06/21 01:41 07/06/21 04:00 Temperature 36.8 C Pulse Rate 79 98 93 Respiratory Rate 16 Blood Pressure 119/54 L Pulse Oximetry
[2021-07-06] MEDS: LOPERAMIDE HCL 2 MG CAPSULE PO (17:19)
[2021-07-06] MEDS: CHOLESTYRAMINE (W/ SUGAR) 4 GM POWD.PACK PO (17:19)
[2021-07-06] MEDS: ATORVASTATIN 40 MG TABLET 80 MG BY MOUTH (20:25)
[2021-07-07] VITALS (16 sets, daily range): BP systolic 115–182; BP diastolic 67–93; PULSE 73–98; RESP 16–20; TEMP 36.4–39.3; O2SAT 92–100
[2021-07-07] MEDS: metroNIDAZOLE 500 MG/ISO 100ML 500 MG/100 ML BAG 100 MG IVPB ×2 (01:31→09:23)
--- NOTE | 2021-07-07 05:54 | PC.NURSE ---
Dr Pak notified pt has new onset fever 102.7 (oral). Pt denies any symptoms other than feeling increased lethargy. New orders received.
[2021-07-07 06:23] LABS: Basophils Percent Auto 0.2 % (0.2-1.2); Hematocrit 35.8 % (37.0-47.0); Hemoglobin 11.5 g/dL (12.0-15.0); Immature Granulocyte Absolute 0.02 K/mm3 (0.00-0.031); Immature Granulocyte Percent A 0.4 % (0-0.5); Lymphocytes Absolute Auto 0.37 K/mm3 (0.9-3.2); Lymphocytes Percent Auto 7.8 % (18.3-44.2); Mean Corpuscular HGB Conc 32.1 g/dl (32-36); Mean Corpuscular Volume 90.4 fl (80-100); Mean Platelet Volume 9.8 fl (7.4-10.4); Monocytes Absolute Auto 0.5 K/mm3 (0.1-0.6); Monocytes Percent Auto 10.3 % (2.6-8.5); Neutrophils Absolute Auto 3.9 K/mm3 (1.3-6.7); Neutrophils Percent Auto 81.3 % (45.5-73.1); Platelet Count Result 147 k/mm3 (150-375); Red Blood Count 3.96 M/mm3 (4.2-5.4); Red Cell Distribution Width 13.4 % (11.5-14.5); White Blood Count 4.8 K/mm3 (4.5-10.0)
[2021-07-07] MEDS: ACETAMINOPHEN 325 MG TABLET 650 MG PO (06:46)
[2021-07-07] MEDS: LEVOTHYROXINE SODIUM 125 MCG TABLET BY MOUTH (06:48)
[2021-07-07 06:49] LABS: Alanine Aminotransferase 17 U/L (4-35); Albumin Level 4.2 g/dL (3.5-5.1); Alkaline Phosphatase 85 U/L (38-126); Anion Gap 12 mmol/L (8-16); Aspartate Amino Transferase 32 U/L (14-36); Bilirubin,Total 0.6 mg/dL (0.2-1.3); Blood Urea Nitrogen 26 mg/dL (7-17); Calcium 8.9 mg/dL (8.4-10.2); Carbon Dioxide 22 mmol/L (22-30); Chloride 104 mmol/L (98-107); Estimated CRCL calculation 31 ml/min; Estimated Glomerular Filt Rate 60; Glucose 167 mg/dL (65-110); Potassium 3.6 mmol/L (3.4-5.0); Sodium 138 mmol/L (137-145)
[2021-07-07 06:53] LABS: Anion Gap 11 mmol/L (8-16); Blood Urea Nitrogen 26 mg/dL (7-17); Calcium 8.8 mg/dL (8.4-10.2); Carbon Dioxide 23 mmol/L (22-30); Chloride 104 mmol/L (98-107); Estimated CRCL calculation 31 ml/min; Estimated Glomerular Filt Rate 60; Glucose 166 mg/dL (65-110); Potassium 3.7 mmol/L (3.4-5.0); Sodium 138 mmol/L (137-145)
[2021-07-07] MEDS: CHOLESTYRAMINE (W/ SUGAR) 4 GM POWD.PACK PO (09:22)
[2021-07-07] MEDS: SACCHAROMYCES BOULARDII 250 MG CAPSULE PO ×3 (09:22→16:48)
[2021-07-07] MEDS: ASPIRIN 81 MG CHEWABLE TABLET PO (09:22)
[2021-07-07] MEDS: METOPROLOL SUCCINATE EXT REL 100 MG TABCR PO (09:22)
[2021-07-07] MEDS: APIXABAN 2.5 MG TABLET BY MOUTH ×2 (09:22→16:48)
--- NOTE | 2021-07-07 11:17 | PCPTNOTE ---
Attempted to see pt this morning but pt was off the floor for a CT scan. Returned later once pt was back in the room, but pt was sleeping soundly. Attempted to wake pt for PT session and pt briefly opened eyes, but immediately fell back asleep. Will check back later as schedule allows and pt is more alert and appropriate for session.
[2021-07-07] MEDS: VANCOMYCIN ORAL 125 MG/2.5 ML SYRUP PO (13:26)
--- NOTE | 2021-07-07 13:39 | P.PNIM_ITS ---
Progress Note: A&P Assessment and Plan (1) Fever: Code(s): R50.9 - Fever, unspecified Status: Acute Assessment and Plan: Febrile at 102.7? this morning. improved with Tylenol and afebrile at this time. * possible colitis versus gastroenteritis given vomiting and diarrhea * possibly UTI given abnormal UA; urine culture results suggestive of contamination. Repeat UA with reflex culture pending * pneumonia considered based on CXR and CT showing bibasilar ground-glass opacities. no signs/symptoms to suggest aspiration pneumonia, however will proceed with swallow study given her recent CVA to ensure she is not at risk for aspiration * start on IV Zosyn for broad-spectrum coverage for possible colitis vs UTI vs pneumonia * blood cultures pending * check ESR and CRP with AM labs * no leukocytosis though neutrophil count is slightly elevated (2) Syncope: Code(s): R55 - Syncope and collapse Status: Acute Assessment and Plan: Had an episode of vasovagal syncope on 07/04. likely related to orthostatic hypotension. * She was rehydrated with IV fluids * Continue fall precautions * Head CT and MRI with no acute findings * Tele reviewed at time of episode with no arrhythmias or pauses (3) Orthostatic hypotension: Code(s): I95.1 - Orthostatic hypotension Status: Acute Assessment and Plan: Noted to have 22 point drop in systolic BP from sitting to standing and was symptomatic with this following episode of syncope. * Chi balderas * Subsequent orthostatic blood pressures have been negative. Continue to monitor * Fall precautions * Hydrochlorothiazide and losartan on hold. HCTZ will be discontinued (4) Vomiting and diarrhea: Code(s): R11.10 - Vomiting, unspecified; R19.7 - Diarrhea, unspecified Status: Acute Assessment and Plan: onset during syncopal episode. No further vomiting. no further episodes of diarrhea today, though she did have a dose of Imodium. * Etiology for this not entirely clear. May be gastroenteritis vs colitis as the etiology for her symptoms and overall dehydration. * Stool cultures negative. initial C diff toxin assay was indeterminate, therefore she was started on p.o. vanc. PCR testing for C diff was negative and p.o. vanc will be discontinued. * Flagyl discontinued * Avoid Imodium * Antiemetics available as needed (5) Abnormal urinalysis: Code(s): R82.90 - Unspecified abnormal findings in urine Status: Acute Assessment and Plan: UA abnormal on presentation and she endorsed urinary frequency * Initial urine culture suggestive of contamination * Repeat UA with reflex culture ordered and is pending (6) Falls: Qualifiers: Encounter type: initial encounter Qualified Code(s): W19.XXXA - Unspecified fall, initial encounter Code(s): W19.XXXA - Unspecified fall, initial encounter Status: Acute Assessment and Plan: She had been having falls at home, with reports of 5 falls in the 3 days prior to presentation. She did not sustain any injuries and was able to lower herself to the ground before she fell entirely * Fall precautions as above * Appreciate PT/OT evals * May be related to orthostasis; plan as above (7) Weakness: Code(s): R53.1 - Weakness Status: Acute Assessment and Plan: She has had residual left-sided weakness following her stroke a couple months ago. Also has more recently noticed weakness of her legs
--- NOTE | 2021-07-07 13:39 | PM.IMPN ---
Progress Note: A&P Assessment and Plan (1) Fever: Code(s): R50.9 - Fever, unspecified Status: Acute Assessment and Plan: Febrile at 102.7? this morning. improved with Tylenol and afebrile at this time. possible colitis versus gastroenteritis given vomiting and diarrhea possibly UTI given abnormal UA; urine culture results suggestive of contamination. Repeat UA with reflex culture pending pneumonia considered based on CXR and CT showing bibasilar ground-glass opacities. no signs/symptoms to suggest aspiration pneumonia, however will proceed with swallow study given her recent CVA to ensure she is not at risk for aspiration start on IV Zosyn for broad-spectrum coverage for possible colitis vs UTI vs pneumonia blood cultures pending check ESR and CRP with AM labs no leukocytosis though neutrophil count is slightly elevated (2) Syncope: Code(s): R55 - Syncope and collapse Status: Acute Assessment and Plan: Had an episode of vasovagal syncope on 07/04. likely related to orthostatic hypotension. She was rehydrated with IV fluids Continue fall precautions Head CT and MRI with no acute findings Tele reviewed at time of episode with no arrhythmias or pauses (3) Orthostatic hypotension: Code(s): I95.1 - Orthostatic hypotension Status: Acute Assessment and Plan: Noted to have 22 point drop in systolic BP from sitting to standing and was symptomatic with this following episode of syncope. Chi balderas Subsequent orthostatic blood pressures have been negative. Continue to monitor Fall precautions Hydrochlorothiazide and losartan on hold. HCTZ will be discontinued (4) Vomiting and diarrhea: Code(s): R11.10 - Vomiting, unspecified; R19.7 - Diarrhea, unspecified Status: Acute Assessment and Plan: onset during syncopal episode. No further vomiting. no further episodes of diarrhea today, though she did have a dose of Imodium. Etiology for this not entirely clear. May be gastroenteritis vs colitis as the etiology for her symptoms and overall dehydration. Stool cultures negative. initial C diff toxin assay was indeterminate, therefore she was started on p.o. vanc. PCR testing for C diff was negative and p.o. vanc will be discontinued. Flagyl discontinued Avoid Imodium Antiemetics available as needed (5) Abnormal urinalysis: Code(s): R82.90 - Unspecified abnormal findings in urine Status: Acute Assessment and Plan: UA abnormal on presentation and she endorsed urinary frequency Initial urine culture suggestive of contamination Repeat UA with reflex culture ordered and is pending (6) Falls: Qualifiers: Encounter type: initial encounter Qualified Code(s): W19.XXXA - Unspecified fall, initial encounter Code(s): W19.XXXA - Unspecified fall, initial encounter Status: Acute Assessment and Plan: She had been having falls at home, with reports of 5 falls in the 3 days prior to presentation. She did not sustain any injuries and was able to lower herself to the ground before she fell entirely Fall precautions as above Appreciate PT/OT evals May be related to orthostasis; plan as above (7) Weakness: Code(s): R53.1 - Weakness Status: Acute Assessment and Plan: She has had residual left-sided weakness following her stroke a couple months ago. Also has more recently noticed weakness of her legs Continue PT/OT as above (8) Paroxysmal atrial fibrillation: Code(s): I48.0 - Paroxysmal atrial fibrillation Status: Acute Assessment and Plan: Rate is controlled Continue Eliquis Continue metoprolol succinate (9) Pulmonary vascular congestion: Code(s): R09.89 - Other specified symptoms and signs involving the circulatory and respiratory systems Status: Acute Assessment and Plan: Chest x-ray on present
--- NOTE | 2021-07-07 14:25 | PCOTNOTE ---
Attempted to see Patient for P.M. treatment session. Patient verbalized, 'I'm so tired, I need good rest. I spiked a fever this morning and need to sleep . Patient refused to participate in any functional activity at this time.
[2021-07-07] MEDS: LOSARTAN POTASSIUM 100 MG TABLET PO (20:20)
[2021-07-07] MEDS: ATORVASTATIN 40 MG TABLET 80 MG BY MOUTH (20:23)
[2021-07-07 20:27] LABS: EDCOVIDSCREEN Positive (Negative)
[2021-07-07 20:35] LABS: Add Urine Microscopic? YES; Appearance Urine Clear (Clear); Bilirubin Urine Negative (Negative); Blood Urine Negative (Negative); Color Urine Yellow (Yellow); Glucose Urine UA Negative (Negative); Ketones Urine Negative (Negative); Leukocyte Esterase Ur 1+ LEU/UL (Negative); Nitrate Urine Negative (Negative); Protein Urine 3+ mg/dL (Negative); Specific Grav Ur 1.019 (1.001-1.035); Squamous Epithelial Cell Urine Occasional /hpf (Few); Urobilinogen Urine Negative mg/dL (<2.0)
--- NOTE | 2021-07-07 20:46 | PM.EVENT ---
Event Note Event Note Event Note: Patient's chest x-ray was worsening and it looks like worsening ground-glass opacities. Patient also spiked a fever. We did a rapid COVID test and it was found to be positive. We are moving her into isolation for contact and droplet.
--- NOTE | 2021-07-07 20:52 | PC.NURSE ---
Margareth Chapman and Dr Rivera verbally informed pt rapid COVID is positive. Pt will be transferred to Med/Surg 313.
--- NOTE | 2021-07-07 22:00 | PC.NURSE ---
Pt transferred to Med/Surg 313 by bed, all belongings with patient, droplet precaution observed, report given to
--- NOTE | 2021-07-07 22:06 | PC.NURSE ---
This patient, Ambar Grace, was received from 2nd med to 313 (3rd med surg) on 07/07/21 at 2135. Patient/family oriented to unit policies and routines
[2021-07-08] VITALS (8 sets, daily range): BP systolic 123–159; BP diastolic 73–88; PULSE 57–94; RESP 16–20; TEMP 36.2–36.6; O2SAT 90–97
[2021-07-08] MEDS: LEVOTHYROXINE SODIUM 125 MCG TABLET BY MOUTH (05:38)
[2021-07-08 06:14] LABS: Hematocrit 36.3 % (37.0-47.0); Hemoglobin 11.5 g/dL (12.0-15.0); Mean Corpuscular HGB Conc 31.7 g/dl (32-36); Mean Corpuscular Hemoglobin 28.8 pg (26-34); Mean Platelet Volume 10.3 fl (7.4-10.4); Platelet Count Result 157 k/mm3 (150-375); Red Blood Count 3.99 M/mm3 (4.2-5.4); Red Cell Distribution Width 13.5 % (11.5-14.5); White Blood Count 4.6 K/mm3 (4.5-10.0)
[2021-07-08 06:29] LABS: Anion Gap 8 mmol/L (8-16); Blood Urea Nitrogen 23 mg/dL (7-17); CRP 8.7 mg/dL (<1.0); Calcium 8.7 mg/dL (8.4-10.2); Carbon Dioxide 24 mmol/L (22-30); Chloride 103 mmol/L (98-107); Estimated CRCL calculation 31 ml/min; Estimated Glomerular Filt Rate 60; Glucose 157 mg/dL (65-110); Potassium 3.5 mmol/L (3.4-5.0); Sodium 135 mmol/L (137-145)
[2021-07-08 06:59] LABS: Erythrocyte Sedimentation Rate 84 mm/hr (0-20)
[2021-07-08] MEDS: METOPROLOL SUCCINATE EXT REL 100 MG TABCR PO (08:27)
[2021-07-08] MEDS: APIXABAN 2.5 MG TABLET BY MOUTH ×2 (08:27→18:12)
[2021-07-08] MEDS: LOSARTAN POTASSIUM 100 MG TABLET BY MOUTH (08:27)
[2021-07-08] MEDS: ASPIRIN 81 MG CHEWABLE TABLET PO (08:27)
[2021-07-08] MEDS: SACCHAROMYCES BOULARDII 250 MG CAPSULE PO ×3 (08:27→18:12)
--- NOTE | 2021-07-08 14:15 | PCSTNOTE ---
Please refer to the Bedside Swallow Evaluation in the EMR. Please note, silent aspiration cannot be ruled out at bedside.
--- NOTE | 2021-07-08 16:07 | PM.IMPN ---
Progress Note: A&P Assessment and Plan (1) Fever: Code(s): R50.9 - Fever, unspecified Status: Acute Assessment and Plan: Febrile at 102.7? this morning Suspect 2/2 COVID Initial urine culture results suggestive of contamination. Repeat UA with reflex culture pending CXR and CT showing bibasilar ground-glass opacities no signs/symptoms to suggest aspiration pneumonia, ESR 84 and CRP 8.7 no leukocytosis though neutrophil count is slightly elevated (2) Syncope: Code(s): R55 - Syncope and collapse Status: Acute Assessment and Plan: Had an episode of vasovagal syncope on 07/04. likely related to orthostatic hypotension She was rehydrated with IV fluids Continue fall precautions Head CT and MRI with no acute findings Tele reviewed at time of episode with no arrhythmias or pauses (3) Orthostatic hypotension: Code(s): I95.1 - Orthostatic hypotension Status: Acute Assessment and Plan: Noted to have 22 point drop in systolic BP from sitting to standing and was symptomatic with this following episode of syncope. Chi balderas Subsequent orthostatic blood pressures have been negative Continue to monitor Fall precautions Hydrochlorothiazide and losartan on hold CTZ will be discontinued (4) Vomiting and diarrhea: Code(s): R11.10 - Vomiting, unspecified; R19.7 - Diarrhea, unspecified Status: Acute Assessment and Plan: Onset during syncopal episode. Revolved. S/p Imodium Suspect 2/2 COVID 19 Stool cultures negative. initial C diff toxin assay was indeterminate, therefore she was started on p.o. vanc. PCR testing for C diff was negative and p.o. vanc will be discontinued. Flagyl discontinued Avoid Imodium Antiemetics available as needed (5) Abnormal urinalysis: Code(s): R82.90 - Unspecified abnormal findings in urine Status: Acute Assessment and Plan: UA abnormal on presentation and she endorsed urinary frequency Initial urine culture suggestive of contamination Repeat UC pending (6) Falls: Qualifiers: Encounter type: initial encounter Qualified Code(s): W19.XXXA - Unspecified fall, initial encounter Code(s): W19.XXXA - Unspecified fall, initial encounter Status: Acute Assessment and Plan: She had been having falls at home, with reports of 5 falls in the 3 days prior to presentation No injuries and was able to lower herself to the ground before she fell entirely Fall precautions as above PT/OT May be related to orthostasis; plan as above (7) Weakness: Code(s): R53.1 - Weakness Status: Acute Assessment and Plan: She has had residual left-sided weakness following her stroke a couple months ago. Also has more recently noticed weakness of her legs Continue PT/OT as above (8) Paroxysmal atrial fibrillation: Code(s): I48.0 - Paroxysmal atrial fibrillation Status: Acute Assessment and Plan: Rate is controlled Continue Eliquis Continue metoprolol succinate (9) Pulmonary vascular congestion: Code(s): R09.89 - Other specified symptoms and signs involving the circulatory and respiratory systems Status: Acute Assessment and Plan: Chest x-ray on presentation showed evidence of pulmonary vascular congestion though she was asymptomatic Repeat chest x-ray performed following rapid response that did demonstrate improving pulmonary edema Monitor volume status closely Avoid further IV fluids to prevent overhydration Echo shows preserved EF with abnormal diastolic function (10) COVID-19: Code(s): U07.1 - COVID-19 Status: Acute Assessment and Plan: Febrile +COVID Pt has been fully vaccinated CRP 8.7 Monitor LFT, Cr, coags daily Sats >92% on RA No remdesiver for now Isolation initiated Supportive care Monitor closely for change in respiratory status Subjective Date/time seen: 07/08/21 16:07 Interv
[2021-07-08] MEDS: ONDANSETRON INJ 4 MG/2 ML VIAL IV PUSH (18:14)
[2021-07-08] MEDS: ATORVASTATIN 40 MG TABLET 80 MG BY MOUTH (21:02)
[2021-07-08 23:55] LABS: INR 1.6; Prothrombin Time 18.4 Seconds (11.1-14.7)
[2021-07-09] VITALS (9 sets, daily range): BP systolic 112–141; BP diastolic 59–92; PULSE 69–94; RESP 16–20; TEMP 35.8–37.1; O2SAT 90–97
[2021-07-09 00:26] LABS: Creatine Kinase 24 U/L (30-135); Lactate Dehydrogenase 620 U/L (313-618)
[2021-07-09 00:27] LABS: Estimated CRCL calculation 31 ml/min; Estimated Glomerular Filt Rate 60
[2021-07-09 00:38] LABS: Alanine Aminotransferase 13 U/L (4-35)
[2021-07-09] MEDS: LEVOTHYROXINE SODIUM 125 MCG TABLET BY MOUTH (05:59)
[2021-07-09] MEDS: METOPROLOL SUCCINATE EXT REL 100 MG TABCR PO (08:29)
[2021-07-09] MEDS: LOSARTAN POTASSIUM 100 MG TABLET BY MOUTH (08:29)
[2021-07-09] MEDS: ASPIRIN 81 MG CHEWABLE TABLET PO (08:29)
[2021-07-09] MEDS: APIXABAN 2.5 MG TABLET BY MOUTH ×2 (08:29→16:48)
[2021-07-09] MEDS: SACCHAROMYCES BOULARDII 250 MG CAPSULE PO ×3 (08:30→16:48)
--- NOTE | 2021-07-09 15:55 | PCPTNOTE ---
Attempted to see PT this afternoon for PT, however patient requested PT return tomorrow. Patient c/o fatigue following OT treatment. PT will continue to follow per plan of care.
--- NOTE | 2021-07-09 16:42 | PM.IMPN ---
Progress Note: A&P Assessment and Plan (1) Fever: Code(s): R50.9 - Fever, unspecified Status: Acute Assessment and Plan: Febrile this morning Suspect 2/2 COVID Initial urine culture results suggestive of contamination Repeat UC showed no growth CXR and CT showing bibasilar ground-glass opacities no signs/symptoms to suggest aspiration pneumonia, ESR 84 and CRP 8.7 no leukocytosis though neutrophil count is slightly elevated (2) Syncope: Code(s): R55 - Syncope and collapse Status: Acute Assessment and Plan: Had an episode of vasovagal syncope on 07/04. likely related to orthostatic hypotension She was rehydrated with IV fluids Continue fall precautions Head CT and MRI with no acute findings Tele reviewed at time of episode with no arrhythmias or pauses (3) Orthostatic hypotension: Code(s): I95.1 - Orthostatic hypotension Status: Acute Assessment and Plan: Noted to have 22 point drop in systolic BP from sitting to standing and was symptomatic with this following episode of syncope Chi hose Subsequent orthostatic blood pressures have been negative Continue to monitor Fall precautions losartan on hold HCTZ discontinued (4) Vomiting and diarrhea: Code(s): R11.10 - Vomiting, unspecified; R19.7 - Diarrhea, unspecified Status: Acute Assessment and Plan: Onset during syncopal episode. Revolved. S/p Imodium Suspect 2/2 COVID 19 Stool cultures negative. initial C diff toxin assay was indeterminate, therefore she was started on p.o. vanc. PCR testing for C diff was negative and p.o. vanc will be discontinued. Flagyl discontinued Avoid Imodium Antiemetics available as needed (5) Abnormal urinalysis: Code(s): R82.90 - Unspecified abnormal findings in urine Status: Acute Assessment and Plan: UA abnormal on presentation and she endorsed urinary frequency Initial urine culture suggestive of contamination UC negative (6) Falls: Qualifiers: Encounter type: initial encounter Qualified Code(s): W19.XXXA - Unspecified fall, initial encounter Code(s): W19.XXXA - Unspecified fall, initial encounter Status: Acute Assessment and Plan: She had been having falls at home, with reports of 5 falls in the 3 days prior to presentation No injuries and was able to lower herself to the ground before she fell entirely Fall precautions as above PT/OT May be related to orthostasis; plan as above (7) Weakness: Code(s): R53.1 - Weakness Status: Acute Assessment and Plan: She has had residual left-sided weakness following her stroke a couple months ago. Also has more recently noticed weakness of her legs Continue PT/OT as above (8) Paroxysmal atrial fibrillation: Code(s): I48.0 - Paroxysmal atrial fibrillation Status: Acute Assessment and Plan: Rate is controlled Continue Eliquis Continue metoprolol succinate (9) Pulmonary vascular congestion: Code(s): R09.89 - Other specified symptoms and signs involving the circulatory and respiratory systems Status: Acute Assessment and Plan: Chest x-ray on presentation showed evidence of pulmonary vascular congestion though she was asymptomatic Repeat chest x-ray performed following rapid response that did demonstrate improving pulmonary edema Monitor volume status closely Avoid further IV fluids to prevent overhydration Echo shows preserved EF with abnormal diastolic function (10) COVID-19: Code(s): U07.1 - COVID-19 Status: Acute Assessment and Plan: Febrile +COVID Pt has been fully vaccinated since December CRP 8.7 Monitor LFT, Cr, coags daily Sats >92% on RA No remdesiver for now Isolation initiated Supportive care Monitor closely for change in respiratory status Subjective Date/time seen: 07/09/21 16:42 Interval history: 07/08 pt seen and evaluated; denies any
[2021-07-09] MEDS: ATORVASTATIN 40 MG TABLET 80 MG BY MOUTH (21:28)
[2021-07-10] VITALS (7 sets, daily range): BP systolic 125–154; BP diastolic 63–85; PULSE 72–94; RESP 18; TEMP 36.2–36.9; O2SAT 92–96
--- NOTE | 2021-07-10 01:00 | PC.NURSE ---
Daylight Savings Time For Daylight Savings Time Ending in the Fall - Clocks are moved back. For Daylight Savings Time Beginning in the Spring - Clocks are moved ahead. For [facility], the time of change occurs at 0200 hrs. Time is taken from the [employer]ist[employer] server. This entry on the patient's chart recognizes the change in time reflected during documentation. Example: 2 entries for vital signs may be charted for 0200 hrs.
[2021-07-10] MEDS: LEVOTHYROXINE SODIUM 125 MCG TABLET BY MOUTH (06:41)
[2021-07-10 07:19] LABS: Alanine Aminotransferase 12 U/L (4-35); Estimated CRCL calculation 31 ml/min; Estimated Glomerular Filt Rate 60
[2021-07-10 07:33] LABS: INR 1.4; Prothrombin Time 16.5 Seconds (11.1-14.7)
[2021-07-10] MEDS: SACCHAROMYCES BOULARDII 250 MG CAPSULE PO ×3 (09:33→19:18)
[2021-07-10] MEDS: ASPIRIN 81 MG CHEWABLE TABLET PO (09:33)
[2021-07-10] MEDS: METOPROLOL SUCCINATE EXT REL 100 MG TABCR PO (09:33)
[2021-07-10] MEDS: APIXABAN 2.5 MG TABLET BY MOUTH ×2 (09:33→19:18)
[2021-07-10] MEDS: LOSARTAN POTASSIUM 100 MG TABLET BY MOUTH (09:34)
--- NOTE | 2021-07-10 13:42 | PM.IMPN ---
Progress Note: A&P Assessment and Plan (1) Fever: Code(s): R50.9 - Fever, unspecified Status: Acute Assessment and Plan: Afebrile this a.m. Suspect 2/2 COVID Initial urine culture results suggestive of contamination Repeat UC showed no growth CXR and CT showing bibasilar ground-glass opacities no signs/symptoms to suggest aspiration pneumonia, ESR 84 and CRP 8.7 no leukocytosis though neutrophil count is slightly elevated (2) Syncope: Code(s): R55 - Syncope and collapse Status: Acute Assessment and Plan: Had an episode of vasovagal syncope on 07/04. likely related to orthostatic hypotension She was rehydrated with IV fluids Continue fall precautions Head CT and MRI with no acute findings Tele reviewed at time of episode with no arrhythmias or pauses (3) Orthostatic hypotension: Code(s): I95.1 - Orthostatic hypotension Status: Acute Assessment and Plan: Noted to have 22 point drop in systolic BP from sitting to standing and was symptomatic with this following episode of syncope Chi hose Subsequent orthostatic blood pressures have been negative Continue to monitor Fall precautions losartan on hold HCTZ discontinued (4) Vomiting and diarrhea: Code(s): R11.10 - Vomiting, unspecified; R19.7 - Diarrhea, unspecified Status: Acute Assessment and Plan: Onset during syncopal episode. Revolved. S/p Imodium Suspect 2/2 COVID 19 Stool cultures negative. initial C diff toxin assay was indeterminate, therefore she was started on p.o. vanc. PCR testing for C diff was negative and p.o. vanc will be discontinued. Flagyl discontinued Avoid Imodium Antiemetics available as needed (5) Abnormal urinalysis: Code(s): R82.90 - Unspecified abnormal findings in urine Status: Acute Assessment and Plan: UA abnormal on presentation and she endorsed urinary frequency Initial urine culture suggestive of contamination UC negative (6) Falls: Qualifiers: Encounter type: initial encounter Qualified Code(s): W19.XXXA - Unspecified fall, initial encounter Code(s): W19.XXXA - Unspecified fall, initial encounter Status: Acute Assessment and Plan: She had been having falls at home, with reports of 5 falls in the 3 days prior to presentation No injuries and was able to lower herself to the ground before she fell entirely Fall precautions as above PT/OT May be related to orthostasis; plan as above (7) Weakness: Code(s): R53.1 - Weakness Status: Acute Assessment and Plan: She has had residual left-sided weakness following her stroke a couple months ago. Also has more recently noticed weakness of her legs Continue PT/OT as above (8) Paroxysmal atrial fibrillation: Code(s): I48.0 - Paroxysmal atrial fibrillation Status: Acute Assessment and Plan: Rate is controlled Continue Eliquis Continue metoprolol succinate (9) Pulmonary vascular congestion: Code(s): R09.89 - Other specified symptoms and signs involving the circulatory and respiratory systems Status: Acute Assessment and Plan: Chest x-ray on presentation showed evidence of pulmonary vascular congestion though she was asymptomatic Repeat chest x-ray performed following rapid response that did demonstrate improving pulmonary edema Monitor volume status closely Avoid further IV fluids to prevent overhydration Echo shows preserved EF with abnormal diastolic function; mild to moderate mitral valve regurgitation; moderate tricuspid valve regurgitation Recommend follow up o/p with cardiologsit (10) COVID-19: Code(s): U07.1 - COVID-19 Status: Acute Assessment and Plan: Febrile +COVID Pt has been fully vaccinated since December CRP 8.7 Monitor LFT, Cr, coags daily Sats >92% on RA No remdesiver for now Isolation initiated Supportive care Monitor closely for change in resp
[2021-07-10] MEDS: ATORVASTATIN 40 MG TABLET 80 MG BY MOUTH (21:16)
[2021-07-11] VITALS (9 sets, daily range): BP systolic 132–162; BP diastolic 68–92; PULSE 75–90; RESP 14–18; TEMP 36.1–37.1; O2SAT 92–95
[2021-07-11] MEDS: LEVOTHYROXINE SODIUM 125 MCG TABLET BY MOUTH (06:24)
[2021-07-11 06:59] LABS: Alanine Aminotransferase 14 U/L (4-35); Estimated CRCL calculation 31 ml/min; Estimated Glomerular Filt Rate 60
[2021-07-11 07:03] LABS: INR 1.2
[2021-07-11] MEDS: APIXABAN 2.5 MG TABLET BY MOUTH ×2 (09:11→17:32)
[2021-07-11] MEDS: LOSARTAN POTASSIUM 100 MG TABLET BY MOUTH (09:12)
[2021-07-11] MEDS: METOPROLOL SUCCINATE EXT REL 100 MG TABCR PO (09:12)
[2021-07-11] MEDS: SACCHAROMYCES BOULARDII 250 MG CAPSULE PO ×3 (09:12→17:32)
[2021-07-11] MEDS: ASPIRIN 81 MG CHEWABLE TABLET PO (09:12)
[2021-07-11 09:20] LABS: Hematocrit 34.1 % (37.0-47.0); Mean Corpuscular HGB Conc 32.3 g/dl (32-36); Mean Corpuscular Hemoglobin 28.5 pg (26-34); Mean Corpuscular Volume 88.3 fl (80-100); Mean Platelet Volume 10.5 fl (7.4-10.4); Platelet Count Result 236 k/mm3 (150-375); Red Blood Count 3.86 M/mm3 (4.2-5.4); Red Cell Distribution Width 13.2 % (11.5-14.5); White Blood Count 4.9 K/mm3 (4.5-10.0)
[2021-07-11 09:32] LABS: Alanine Aminotransferase 14 U/L (4-35); Albumin Level 3.5 g/dL (3.5-5.1); Alkaline Phosphatase 75 U/L (38-126); Anion Gap 8 mmol/L (8-16); Aspartate Amino Transferase 29 U/L (14-36); Bilirubin,Total 0.4 mg/dL (0.2-1.3); Blood Urea Nitrogen 23 mg/dL (7-17); CRP 4.3 mg/dL (<1.0); Calcium 8.8 mg/dL (8.4-10.2); Carbon Dioxide 26 mmol/L (22-30); Chloride 105 mmol/L (98-107); Estimated CRCL calculation 31 ml/min; Estimated Glomerular Filt Rate 60; Glucose 134 mg/dL (65-110); Potassium 3.8 mmol/L (3.4-5.0); Sodium 139 mmol/L (137-145)
--- NOTE | 2021-07-11 16:00 | P.PNIM_ITS ---
Progress Note: A&P Assessment and Plan (1) COVID-19: Code(s): U07.1 - COVID-19 Status: Acute Assessment and Plan: Positive COVID test on 07/07/2021. She was febrile up to 102.7? but has been afebrile >72 hours now * Continue isolation precautions * She has maintained adequate oxygen saturations on room air and has not required supplemental oxygen * She is not a candidate for dexamethasone or remdesivir as she has no oxygen requirements * Supplemental O2 as needed with goal saturation 90% or above * Will proceed with home O2 eval for hopeful discharge tomorrow * Continue supportive care to include bronchodilators, expectorants, antipyretics (2) Syncope: Code(s): R55 - Syncope and collapse Status: Acute Assessment and Plan: Had an episode of vasovagal syncope on 07/04, likely related to orthostatic hypotension * She was rehydrated with IV fluids * Continue fall precautions * Head CT and MRI with no acute findings * Tele reviewed at time of episode with no arrhythmias or pauses. Discontinue telemetry (3) Orthostatic hypotension: Code(s): I95.1 - Orthostatic hypotension Status: Acute Assessment and Plan: Noted to have 22 point drop in systolic BP from sitting to standing and was symptomatic with this following episode of syncope * Chi balderas * Subsequent orthostatic blood pressures have been negative * Fall precautions * HCTZ discontinued (4) Vomiting and diarrhea: Code(s): R11.10 - Vomiting, unspecified; R19.7 - Diarrhea, unspecified Status: Acute Assessment and Plan: Onset during syncopal episode. Resolved. * Likely secondary to COVID-19 * Stool cultures negative. Initial C diff toxin assay was indeterminate, however PCR testing was negative. (5) Abnormal urinalysis: Code(s): R82.90 - Unspecified abnormal findings in urine Status: Acute Assessment and Plan: UA abnormal on presentation and she endorsed urinary frequency * Initial urine culture suggestive of contamination * Repeat urine culture negative (6) Falls: Qualifiers: Encounter type: initial encounter Qualified Code(s): W19.XXXA - Unspecified fall, initial encounter Code(s): W19.XXXA - Unspecified fall, initial encounter Status: Acute Assessment and Plan: She had been having falls at home, with reports of 5 falls in the 3 days prior to presentation. She did not sustain any injuries and was able to lower herself to the ground for falling * Fall precautions as above * PT/OT * May be related to orthostasis; plan as above * Planning for home health on discharge (7) Weakness: Code(s): R53.1 - Weakness Status: Acute Assessment and Plan: She has had residual left-sided weakness following her stroke a couple months ago. * Continue PT/OT as above (8) Paroxysmal atrial fibrillation: Code(s): I48.0 - Paroxysmal atrial fibrillation Status: Acute Assessment and Plan: Rate is controlled * Continue Eliquis * Continue metoprolol succinate (9) Pulmonary vascular congestion: Code(s): R09.89 - Other specified symptoms and signs involving the circulatory and respiratory systems Status: Acute Assessment and Plan: Chest x-ray on presentation showed evidence of pulmonary vascular congestion though she was asymptomatic. Repeat chest x-ray showed improve pulmonary edema * Monitor volume
--- NOTE | 2021-07-11 16:00 | PM.IMPN ---
Progress Note: A&P Assessment and Plan (1) COVID-19: Code(s): U07.1 - COVID-19 Status: Acute Assessment and Plan: Positive COVID test on 07/07/2021. She was febrile up to 102.7? but has been afebrile >72 hours now Continue isolation precautions She has maintained adequate oxygen saturations on room air and has not required supplemental oxygen She is not a candidate for dexamethasone or remdesivir as she has no oxygen requirements Supplemental O2 as needed with goal saturation 90% or above Will proceed with home O2 eval for hopeful discharge tomorrow Continue supportive care to include bronchodilators, expectorants, antipyretics (2) Syncope: Code(s): R55 - Syncope and collapse Status: Acute Assessment and Plan: Had an episode of vasovagal syncope on 07/04, likely related to orthostatic hypotension She was rehydrated with IV fluids Continue fall precautions Head CT and MRI with no acute findings Tele reviewed at time of episode with no arrhythmias or pauses. Discontinue telemetry (3) Orthostatic hypotension: Code(s): I95.1 - Orthostatic hypotension Status: Acute Assessment and Plan: Noted to have 22 point drop in systolic BP from sitting to standing and was symptomatic with this following episode of syncope Chi hose Subsequent orthostatic blood pressures have been negative Fall precautions HCTZ discontinued (4) Vomiting and diarrhea: Code(s): R11.10 - Vomiting, unspecified; R19.7 - Diarrhea, unspecified Status: Acute Assessment and Plan: Onset during syncopal episode. Resolved. Likely secondary to COVID-19 Stool cultures negative. Initial C diff toxin assay was indeterminate, however PCR testing was negative. (5) Abnormal urinalysis: Code(s): R82.90 - Unspecified abnormal findings in urine Status: Acute Assessment and Plan: UA abnormal on presentation and she endorsed urinary frequency Initial urine culture suggestive of contamination Repeat urine culture negative (6) Falls: Qualifiers: Encounter type: initial encounter Qualified Code(s): W19.XXXA - Unspecified fall, initial encounter Code(s): W19.XXXA - Unspecified fall, initial encounter Status: Acute Assessment and Plan: She had been having falls at home, with reports of 5 falls in the 3 days prior to presentation. She did not sustain any injuries and was able to lower herself to the ground for falling Fall precautions as above PT/OT May be related to orthostasis; plan as above Planning for home health on discharge (7) Weakness: Code(s): R53.1 - Weakness Status: Acute Assessment and Plan: She has had residual left-sided weakness following her stroke a couple months ago. Continue PT/OT as above (8) Paroxysmal atrial fibrillation: Code(s): I48.0 - Paroxysmal atrial fibrillation Status: Acute Assessment and Plan: Rate is controlled Continue Eliquis Continue metoprolol succinate (9) Pulmonary vascular congestion: Code(s): R09.89 - Other specified symptoms and signs involving the circulatory and respiratory systems Status: Acute Assessment and Plan: Chest x-ray on presentation showed evidence of pulmonary vascular congestion though she was asymptomatic. Repeat chest x-ray showed improve pulmonary edema Monitor volume status closely Avoid further IV fluids to prevent overhydration Echo shows preserved EF with abnormal diastolic function Subjective Date/time seen: 07/11/21 16:00 Interval history: Date of service: 07/11/2021 Ambar Grace is an 80-year-old female with a history of recent CVA in April 2021, hypertension, hyperlipidemia, hypothyroidism, and paroxysmal atrial fibrillation on chronic anticoagulation who is seen in follow-up for COVID-19. She is doing well today. She is quite frustrated about
[2021-07-11] MEDS: ATORVASTATIN 40 MG TABLET 80 MG BY MOUTH (21:34)
[2021-07-12] VITALS (8 sets, daily range): BP systolic 148–160; BP diastolic 71–98; PULSE 70–96; RESP 14–18; TEMP 36.3–36.6; O2SAT 96–99
[2021-07-12] MEDS: LEVOTHYROXINE SODIUM 125 MCG TABLET BY MOUTH (05:35)
[2021-07-12 06:32] LABS: Hematocrit 34.2 % (37.0-47.0); Hemoglobin 11.1 g/dL (12.0-15.0); Mean Corpuscular HGB Conc 32.5 g/dl (32-36); Mean Corpuscular Hemoglobin 28.4 pg (26-34); Mean Corpuscular Volume 87.5 fl (80-100); Mean Platelet Volume 9.7 fl (7.4-10.4); Platelet Count Result 266 k/mm3 (150-375); Red Blood Count 3.91 M/mm3 (4.2-5.4); Red Cell Distribution Width 13.1 % (11.5-14.5); White Blood Count 5.1 K/mm3 (4.5-10.0)
[2021-07-12 06:42] LABS: Alanine Aminotransferase 14 U/L (4-35); Anion Gap 9 mmol/L (8-16); Blood Urea Nitrogen 17 mg/dL (7-17); Calcium 8.7 mg/dL (8.4-10.2); Carbon Dioxide 25 mmol/L (22-30); Chloride 105 mmol/L (98-107); Estimated CRCL calculation 31 ml/min; Estimated Glomerular Filt Rate 60; Glucose 135 mg/dL (65-110); Potassium 3.8 mmol/L (3.4-5.0); Sodium 139 mmol/L (137-145)
[2021-07-12 08:00] LABS: INR 1.3; Prothrombin Time 16.2 Seconds (11.1-14.7)
[2021-07-12] MEDS: SACCHAROMYCES BOULARDII 250 MG CAPSULE PO (08:00)
[2021-07-12] MEDS: METOPROLOL SUCCINATE EXT REL 100 MG TABCR PO (08:01)
[2021-07-12] MEDS: LOSARTAN POTASSIUM 100 MG TABLET BY MOUTH (08:01)
[2021-07-12] MEDS: ASPIRIN 81 MG CHEWABLE TABLET PO (08:02)
[2021-07-12] MEDS: APIXABAN 2.5 MG TABLET BY MOUTH (08:02)
--- NOTE | 2021-07-12 11:50 | PM.DS ---
DS: Admitting Diagnosis Discharge Date 07/12/2021 Admitting Diagnosis Falls, generalized weakness DS: Discharge Diagnosis Discharge Diagnosis (1) COVID-19: Code(s): U07.1 - COVID-19 Status: Acute Assessment and Plan: Positive COVID test on 07/07/2021. She was febrile up to 102.7?. She maintained adequate oxygen saturations on room air and did not require supplemental oxygen. Not a candidate for dexamethasone or remdesivir as she had no oxygen requirements. Supportive care provided. Home O2 eval performed with no need for home oxygen. Discussed COVID precautions and necessary quarantine period. (2) Syncope: Code(s): R55 - Syncope and collapse Status: Acute Assessment and Plan: Had an episode of vasovagal syncope on 07/04, likely related to orthostatic hypotension. Tele reviewed at time of episode with no arrhythmias or pauses. Head CT and MRI with no acute findings. She was rehydrated with IV fluids and symptoms resolved. Continue Chi hose. Fall precautions discussed. (3) Orthostatic hypotension: Code(s): I95.1 - Orthostatic hypotension Status: Acute Assessment and Plan: Noted to have 22 point drop in systolic BP from sitting to standing and was symptomatic with this following episode of syncope. Improved with rehydration. Subsequent orthostatic blood pressures negative. Continue Chi hose. HCTZ discontinued (4) Vomiting and diarrhea: Code(s): R11.10 - Vomiting, unspecified; R19.7 - Diarrhea, unspecified Status: Acute Assessment and Plan: Likely secondary to COVID-19. Stool cultures negative. Initial C diff toxin assay was indeterminate, however PCR testing was negative. (5) Abnormal urinalysis: Code(s): R82.90 - Unspecified abnormal findings in urine Status: Acute Assessment and Plan: UA abnormal on presentation and she endorsed urinary frequency. Initial urine culture suggestive of contamination. Repeat urine culture negative (6) Falls: Qualifiers: Encounter type: initial encounter Qualified Code(s): W19.XXXA - Unspecified fall, initial encounter Code(s): W19.XXXA - Unspecified fall, initial encounter Status: Acute Assessment and Plan: She had been having falls at home, with reports of 5 falls in the 3 days prior to presentation. She did not sustain any injuries and was able to lower herself to the ground for falling. Likely related to weakness from recent CVA and worsened by acute COVID-19 illness and orthostasis. She was evaluated by PT/OT. Home healthcare arranged. Fall precautions discussed. (7) Weakness: Code(s): R53.1 - Weakness Status: Acute Assessment and Plan: She has had residual left-sided weakness following her stroke a couple months ago. Continue PT/OT as above (8) Paroxysmal atrial fibrillation: Code(s): I48.0 - Paroxysmal atrial fibrillation Status: Acute Assessment and Plan: Rate controlled. Continue Eliquis and metoprolol succinate (9) Pulmonary vascular congestion: Code(s): R09.89 - Other specified symptoms and signs involving the circulatory and respiratory systems Status: Acute Assessment and Plan: Chest x-ray on presentation showed evidence of pulmonary vascular congestion though she was asymptomatic. Repeat chest x-ray showed improve pulmonary edema. Echo showed preserved EF with femoral systolic function. She was euvolemic on exam DS: Summary Hospital Course Hospital Course: Date of admission: 07/03/2021 Date of discharge: 07/12/2021 Ambar Grace is an 80-year-old female with a history of recent CVA in April 2021, hypertension, hyperlipidemia, hypothyroidism, and paroxysmal atrial fibrillation on chronic anticoagulation who presented to the emergency department on 07/03/2021 with complaints of recent falls. On presentation to the ED, her vital signs were stable, she was
--- NOTE | 2021-07-12 11:57 | HOMEO2EVAL ---
Evaluation was performed at [facility] Home Oxygen Evaluation RC: Home Oxygen (O2) Evaluation Start: 07/11/21 16:21 Freq: ONCE Status: Active Protocol: RPE Activity Type Activity Date Activity User E-Sign Co-Sign Detail Recorded Client Recorded Date Recorded By Document 07/12/21 11:30 NICKY [email or web address] 07/12/21 11:57 NICKY Document 07/12/21 11:35 NICKY [email or web address] 07/12/21 11:57 NICKY Document 07/12/21 11:45 NICKY [email or web address] 07/12/21 11:57 NICKY 07/12/21 07/12/21 07/12/21 11:30 11:35 11:45 Home O2 Evaluation Test Phase Resting Exercise Resting Oxygen Delivery Room Air Room Air Room Air Pulse Oximetry (90-100 %) 98 96 99 Pulse Rate (60-100 beats/min) 70 96 78 Ambulation Distance (feet) 150 Home Oxygen Evaluation Comments no home o2 needed at this time Treatment Charges O2 Evaluation - Inpatient
--- NOTE | 2021-07-12 11:57 | PCRCNOTE ---
Home O2 eval done, no home O2 needed at this time.
== END 2021-07-12 14:55 | disposition home health service (06) | DRG 178 ==
LOC: ANHED 15:44 → ANH2MED 17:58 → ANH3MEDSUR 07-08 14:09 → ANH2MED 07-13 08:57 → ANH3MEDSUR 07-13 08:57
PROVIDERS: Family Medicine; Internal Medicine; Nurse Practitioner; Nurse Practitioner Adult Health; Physician Assistant; Admitting Provider Internal Medicine; Emergency Provider Emergency Medicine; Visit Provider Internal Medicine
DX: U07.1 COVID-19 (principal); I69.354 Hemiplegia and hemiparesis following cerebral infarction affecting left non-dominant side; I95.1 Orthostatic hypotension; R35.0 Frequency of micturition; R29.6 Repeated falls; I48.0 Paroxysmal atrial fibrillation; R09.89 Other specified symptoms and signs involving the circulatory and respiratory systems; E78.5 Hyperlipidemia, unspecified; E03.9 Hypothyroidism, unspecified; Z79.01 Long term (current) use of anticoagulants; Z87.891 Personal history of nicotine dependence
CPT/HCPCS: 36415; 70450; 70551; 71045; 71046; 74176; 80048; 80053; 81001; 82550; 82565; 82728; 82948; 83615; 83690; 83735; 83880; 84439; 84443; 84460; 84480; 84484; 85025; 85027; 85380; 85610; 85652; 85730; 86140; 87040; 87045; 87086; 87088; 87324; 87426; 87427; 87493; 92610; 93005; 93306; 94618; 96361; 96365; 96366; 96367; 96375; 96376; 97110; 97116; 97161; 97166; 97530; 97535; 99285; A9270; C9803; G0378; J0696; J1940; J2405; J2543; J7030; J7040

== ENCOUNTER 2022-02-10 08:00 | Outpatient (RCR) | payer OTHER, SELFPAY ==
[2022-01-13 13:55] VITALS: BP_SYST 85
--- NOTE | 2022-01-13 15:05 | PTOPEVAL ---
PHYSICAL THERAPY EVALUATION AND PLAN OF CARE 01-13-22 Thank you for referring Ambar Grace to [facility], for the diagnosis of s/p L proximal humeral fracture. The order is dated 11-21-21. Per order, she is scheduled to be seen for therapy? 2 x/week for 2 weeks. Please review, sign, date and return this plan of care AN. I agree with and certify that the following plan of care is medically necessary. Referring Physician Date Attending Provider: Gil Flores MD Past Medical History Source of Past Medical History Recalled from Previous Visit, Confirmed with Patient/Family Neurological History Hx Cerebrovascular Accident (CVA) Yes: Apr 2021- residual weakness L side Hx Transient Ischemic Attacks (TIA) Yes: mulitple TIA's Cardiovascular History Hx Atrial Fibrillation Yes: takes Eliquis Hx Hypercholesterolemia Yes: meds Hx Hypertension Yes: meds Hx Other Cardiac Disorders Yes: carotid artery surgery R Respiratory History Hx Respiratory Disorders No Significant History Gastrointestinal History Hx Gastrointestinal Disorders No Significant History Genitourinary History Hx Urinary Tract Infection Yes Musculoskeletal History Hx Musculoskeletal Disorders No Significant History Hematological History Hx Hematological Disorders No Significant History Endocrine History Hx Hypothyroidism Yes: meds Hx Thyroidectomy Yes HEENT History Hx HEENT Disorders No Significant History Integumentary History Hx Skin Disorders No Significant History Reproductive History Hx Reproductive Disorders No Significant History Psychosocial History Hx Psychiatric Disorders No Significant History Pain History History of Any Previous or Ongoing No Significant History Instance of Pain Anesthesia History Hx Anesthesia Reactions No Significant History Evaluation Information Diagnosis L proximal humeral fracture Onset 09-28-21 Subjective Information non surgery, had brace and Query Text:As Reported By Patient/ sling; stopped using sling in Family November; have not been doing any exercises on her arm; order is dated 11-21-21, reports referral to another facility, which did not take her insurance and delayed in getting started with PT; Previous Treatments For This Problem [facility] PT for L arm after fall; Prior Level of Function Activity Level (Last 3 Months) Activity of Daily Living Ability Needs Some Help Indoor/Home Mobility Needs Some Help Community Mobility Needs Some Help Stairs Ability Needs Some Help Functional Cognition (Planning, Shopping Needs Some Help , Taking Medications)
[2022-01-27 14:05] VITALS: BP_SYST 75
--- NOTE | 2022-01-27 15:52 | PTOPEVAL ---
PHYSICAL THERAPY REEVALUATION OF L SHOULDER AND DISCHARGE PT TREATMENT PHYSICAL THERAPY EVALUATION OF GAIT/BALANCE S/P CVA AND TREATMENT PLAN PT will be discharged for treatment of L shoulder s/p humeral fracture; the goals were partially achieved. Treatment for L UE will be continued by OT under orders of Dr. Wilkes for hand contracture and UE s/p CVA. PT evaluation completed for gait and balance and treatment plan is for 2x/week for 5 weeks. Thank you for referring Ambar Grace to [facility] [place]Note 2[place]? Please review, sign, date and return this plan of care AN. I agree with and certify that the following plan of care is medically necessary. Referring Physician Date Attending Provider: Gil Flores MD-- orders for diagnosis of s/p L proximal humeral fracture Benny Wilkes MD-- orders for balance/gait, s/p CVA Past Medical History Source of Past Medical History Recalled from Previous Visit, Confirmed with Patient/Family Neurological History Hx Cerebrovascular Accident (CVA) Yes: Apr 2021- residual weakness L side Hx Transient Ischemic Attacks (TIA) Yes: mulitple TIA's Cardiovascular History Hx Atrial Fibrillation Yes: takes Eliquis Hx Hypercholesterolemia Yes: meds Hx Hypertension Yes: meds Hx Other Cardiac Disorders Yes: carotid artery surgery R Respiratory History Hx Respiratory Disorders No Significant History Gastrointestinal History Hx Gastrointestinal Disorders No Significant History Genitourinary History Hx Urinary Tract Infection Yes Musculoskeletal History Hx Musculoskeletal Disorders No Significant History Hematological History Hx Hematological Disorders No Significant History Endocrine History Hx Hypothyroidism Yes: meds Hx Thyroidectomy Yes HEENT History Hx HEENT Disorders No Significant History Integumentary History Hx Skin Disorders No Significant History Reproductive History Hx Reproductive Disorders No Significant History Psychosocial History Hx Psychiatric Disorders No Significant History Pain History History of Any Previous or Ongoing No Significant History Instance of Pain Anesthesia History Hx Anesthesia Reactions No Significant History Evaluation Information Diagnosis decreased balance s/p CVA Onset April 2021 Additional Evaluation Detail reeval for s/p L proximal humeral fracture from orders Dr Mark lopez for balance, s/p CVA with orders from Dr Wilkes Subjective Information Ambar reports: L shoulder has Query Text:As Reported By Patient/ little more strength in it; Family therapy is helping her shoulder; doing the exercises at home; RE: Balance
--- NOTE | 2022-02-06 08:44 | PCPTNOTE ---
Patient called & cancelled scheduled appointment this date due to not feeling well
--- NOTE | 2022-02-24 14:29 | PCPTNOTE ---
called pt's son [phone] to check on pt. He stated she has moved into assisted living at [facility] and he thinks she is planning on getting therapy there. When I said I would d/c her, he asked to hold until next week and he will check to see if she is getting therapy or not and let us know.
--- NOTE | 2022-03-13 11:47 | PCPTNOTE ---
PHYSICAL THERAPY DISCHARGE REPORT 03-13-22 Attending Provider: Benny Wilkes MD Patient:Ambar Grace Date of :1940 Mrs. Grace has not returned for any further treatments since 02/10/2022, therefore she will be discharged at this time. Ambar has received 7 PT sessions, from January 13 to February 10, for the diagnosis of decreased balance. She then stopped attending therapy. When I called, her son reported that she has moved into an assisted living facility and is getting therapy there. The goals were not addressed. Thank you for referring Ambar to [facility]. Please review, sign, date and return this discharge summary AN. I have been updated about the patient's current status and I agree with discharge from the above service at this time. Referring Physician Date
== END 2022-03-13 14:56 | disposition home or self-care (01) ==
LOC: ANHPT 08:00
PROVIDERS: Visit Provider Orthopaedic Surgery
DX: Z47.89 Encounter for other orthopedic aftercare (principal); S42.201D Unspecified fracture of upper end of right humerus, subsequent encounter for fracture with routine healing
CPT/HCPCS: 97110; 97112; 97140; 97161; 97162; 97530

== ENCOUNTER 2022-03-14 14:19 | Inpatient (IN) | payer OTHER, SELFPAY ==
[2022-03-14] VITALS (40 sets, daily range): BP systolic 155–234; BP diastolic 110–149; PULSE 69–102; RESP 15–29; TEMP 36.4–36.6; O2SAT 84–100
--- NOTE | ~2022-03-14 | CT_ITS ---
EXAMINATION: CT brain wo con DATE: 03/14/2022 18:58 INDICATION: Status post fall. Hypertension. Patient on blood thinners. TECHNIQUE: Computed tomography (CT) of the head was performed without intravenous contrast. The dose- length product was 605.33 mGy-cm. Automated exposure control and iterative reconstruction technique w ere employed. COMPARISON: CT dated 07/03/2021 FINDINGS: Generalized atrophy. There are scattered moderate periventricular and subcortical white mat ter changes, most likely related to small vessel ischemic disease (microangiopathy). There are chroni c right parietal and cerebellar infarctions. There is intracranial atherosclerosis. No acute intracra nial hemorrhage, infarction, mass or mass effect. Paranasal sinuses and mastoids are pneumatized. Min imal mucosal thickening right ethmoid air cells. No depressed skull fractures. IMPRESSION: 1. No acute intracranial abnormality. 2: Chronic right parietal and cerebellar infarctions. 3: Chronic age-related findings. Reviewed, dictated and finalized at location A.
--- NOTE | ~2022-03-14 | XR_ITS ---
XR chest 1V portable DATE: 03/14/2022 16:34 INDICATION: Shortness of breath TECHNIQUE: Portable upright AP chest on 03/14/2022 at 1631 hours COMPARISON: 07/2021 portable AP chest FINDINGS: There is cardiomegaly. There is prominence of the minor fissure, pulmonary vasculature and pulmonary interstitium in addition to cardiomegaly, suggesting congestive heart failure and pulmonary edema. There is aortic calcification. Levoscoliosis and degenerative spurring of the thoracic spine. Diffuse osteopenia. There is interval subacute or healed left humeral neck fracture, new finding since 07/04/2021. IMPRESSION: Cardiomegaly, congestive changes Osteopenia Subacute or healed left surgical humeral neck fracture, new finding since 07/04/2021 Reviewed, dictated and finalized at location A. IMPRESSION: Cardiomegaly, congestive changes Osteopenia Subacute or healed left surgical humeral neck fracture, new finding since 2020
--- NOTE | 2022-03-14 16:09 | ECG_ITS ---
Measurements Intervals Center [place] Rate: 92 P: [place]: 0 QRS: 1 QRSD: 84 T: 23 QT: 328 QTc: 406 Interpretive Statements ATRIAL FIBRILLATION FREQUENT VENTRICULAR PREMATURE COMPLEXES POOR R WAVE PROGRESSION, ANTERIOR LEADS CONSIDER INFERIOR INFARCT, AGE INDETERMINATE NONSPECIFIC ST & T-WAVE ABNORMALITY- LAT/HIGH LAT LEADS ABNORMAL ECG Electronically Signed On 03-14-2022 16:34:18 CDT by Kodi Gan D.O.
[2022-03-14 16:25] LABS: Basophils Percent Auto 0.4 % (0.2-1.2); Eosinophils Absolute Auto 0.1 K/mm3 (0-0.3); Hematocrit 39.3 % (37.0-47.0); Hemoglobin 12.2 g/dL (12.0-15.0); Immature Granulocyte Absolute 0.03 K/mm3 (0.00-0.031); Immature Granulocyte Percent A 0.4 % (0-0.5); Lymphocytes Absolute Auto 1.11 K/mm3 (0.9-3.2); Lymphocytes Percent Auto 15.7 % (18.3-44.2); Mean Corpuscular Hemoglobin 28.6 pg (26-34); Mean Corpuscular Volume 92.3 fl (80-100); Mean Platelet Volume 9.5 fl (7.4-10.4); Monocytes Absolute Auto 0.9 K/mm3 (0.1-0.6); Neutrophils Percent Auto 70.5 % (45.5-73.1); Platelet Count Result 208 k/mm3 (150-375); Red Blood Count 4.26 M/mm3 (4.2-5.4); Red Cell Distribution Width 14.3 % (11.5-14.5); White Blood Count 7.1 K/mm3 (4.5-10.0)
[2022-03-14 16:32] LABS: Alveolar/Arterial O2 Gradient 27.4 mmHg; Base Excess ABG -0.9 mEq/l (+/-2.0); Carboxyhemoglobin 0.3 % THb (0-2.0); Device ROOM AIR; Fractional Inspired Oxygen 21 %; HCO3 ABG 22.8 mEq/l (22.0-26.0); Methemoglobin ABG 0.2 %THb (0-1.5); Modified Allen's Test Pass; Oxygen Saturation ABG 96.3 % (95.0-100.0); Oxyhemoglobin 94.1 % THb (90.0-100.0); PCO2 ABG 34.9 mmHg (35.0-45.0); PO2 ABG 80.5 mmHg (80.0-100.0); PO2 FiO2 Ratio Arterial Blood 3.83 %; Reduced Hemoglobin 5.4 %THb (0-5.0); Site Drawn RIGHT RADIAL; Total Hemoglobin 12.8 g/dL (12.0-18.0); pH ABG 7.433 (7.350-7.450)
[2022-03-14] MEDS: METOPROLOL SUCCINATE EXT REL 100 MG TABCR PO (16:32)
[2022-03-14] MEDS: NITROGLYCERIN OINTMENT 1 INCH DOSE TRANSDERM (16:32)
[2022-03-14] MEDS: LOSARTAN POTASSIUM 100 MG TABLET PO (16:33)
[2022-03-14 16:34] LABS: Alanine Aminotransferase 26 U/L (6-35); Albumin Level 4.1 g/dL (3.5-5.1); Alkaline Phosphatase 124 U/L (38-126); Anion Gap 8 mmol/L (8-16); Aspartate Amino Transferase 30 U/L (14-36); Bilirubin,Total 0.8 mg/dL (0.2-1.3); Blood Urea Nitrogen 23 mg/dL (7-17); Calcium 9.1 mg/dL (8.4-10.2); Carbon Dioxide 25 mmol/L (22-30); Chloride 103 mmol/L (98-107); Estimated CRCL calculation 31 ml/min; Estimated Glomerular Filt Rate 60; Glucose 138 mg/dL (65-110); Potassium 3.8 mmol/L (3.4-5.0); Sodium 136 mmol/L (137-145)
[2022-03-14 16:35] LABS: INR 1.2; Prothrombin Time 14.5 Seconds (11.1-14.7)
[2022-03-14 16:36] LABS: Partial Thromboplastin Time 32.6 SECONDS (22.3-36.8)
--- NOTE | 2022-03-14 16:37 | ED.GENADULT ---
HPI - General Adult General Chief complaint: Extremity Problem,Nontraumatic Stated complaint: Leg swelling, SOB Time Seen by Provider: 03/14/22 15:50 Source: patient, RN notes reviewed and old records reviewed Mode of arrival: wheelchair Limitations: no limitations History of Present Illness HPI narrative: This is an 81 year old female with history of atrial fibrillation, hypothyroidism and hypertension who presents for evaluation of elevated blood pressure. PAtient states she lives in an assisted living facility and they have not given her medications for 2 days. She also reports worsening bilateral leg swelling for past 1 week. She also reports shortness of breath as well. She denies fever, cough, chest pain, nausea, vomiting, headache or dizziness. Associated symptoms: shortness of breath Related Data Home Medications Medication Instructions Recorded Confirmed apixaban 2.5 mg tablet (Eliquis) 2.5 mg BID 07/03/21 03/14/22 aspirin 81 mg chewable tablet 81 mg PO DAILY 07/03/21 03/14/22 atorvastatin 80 mg tablet 80 mg DAILY 07/03/21 03/14/22 doxazosin 2 mg tablet 2 mg PO HS 07/03/21 03/14/22 levothyroxine 125 mcg tablet 125 mcg DAILY 07/03/21 03/14/22 metoprolol succinate 100 mg 100 mg PO DAILY 07/03/21 03/14/22 tablet,extended release 24 hr fluoxetine 10 mg capsule 10 cap DAILY 03/14/22 03/14/22 Allergies Allergy/AdvReac Type Severity Reaction Status Date / Time No Known Drug Allergies Allergy Unknown Unknown Verified 03/14/22 15:51 Review of Systems Review of Systems: All systems reviewed & are unremarkable except as noted in HPI and below Constitutional: Constitutional: Denies chills, Denies fatigue and Denies fever(s) ENT: Denies nasal congestion and Denies sore throat Cardiovascular: Cardiovascular: Denies chest pain and Denies rapid heart rate Respiratory: Respiratory: Denies chest congestion, Denies cough and Reports dyspnea Gastrointestinal: Gastrointestinal: Denies abdominal pain, Denies bloating, Denies nausea and Denies vomiting Neurologic: Denies headache(s) and Denies focal weakness PMFSH Past Medical History Medical History Cerebrovascular accident Chronic anticoagulation Hyperlipidemia Hypertension Hypothyroidism Paroxysmal atrial fibrillation Surgical History Surgical History History of right-sided carotid endarterectomy History of thyroidectomy Family History Family History Other Cerebrovascular accident Hypertension Social History Social History (Updated 07/03/21 @ 22:54 by Rebecca Sharp PA-C) Social History: Surrogate decision-maker: Lorne Grace, daughter and son. CODE STATUS: Full code. Smoking status: Former smoker Alcohol intake: current Substance use: current Additional living arrangements comments: Currently living with her son in [place]. Additional occupation/education comments: Retired. Spiritual care concerns: No Exam Const: General: no acute distress and alert Nutritional Appearance: well nourished Orientation/consciousness: patient oriented x3 Limitations: no limitations HENMT: Head: normal to inspection Face and sinus: normal facial exam Throat: posterior oropharynx normal Eyes: Conjunctivae: conjunctivae normal Pupils: Equal, round and reactive pupils present EOM: EOMs intact bilaterally Resp: Effort & Inspection: normal respiratory effort Auscultation: crackles bilateral in the lower lung baez Cardio: Rate: regular rate Rhythm: abnormal rhythm Heart sounds: no murmurs GI: GI Palp: Yes Soft to palpation, No Tenderness to palpation present (GI) and No Guarding due to palpation present (GI) Auscultation: normal bowel sounds Skin: General skin exam: normal color Neuro: General: patient oriented x3, moves all extremities and CN's II-XI
[2022-03-14 16:48] LABS: NT Pro B Type Natriuretic Pept 22800 pg/mL (5-100); Troponin I 0.016 ng/mL (0.000-0.034)
[2022-03-14] MEDS: FUROSEMIDE INJ 40 MG/4 ML VIAL IV PUSH (17:30)
[2022-03-14] MEDS: LABETALOL HCL INJ 100 MG/20 ML VIAL 20 MG IV PUSH ×2 (17:30→18:27)
--- NOTE | 2022-03-14 18:10 | PC.NURSE ---
Incontinent of large amount urine.
--- NOTE | 2022-03-14 19:15 | PM.IMHP ---
H&P: HPI History of Present Illness Date/Time: 03/14/22 19:15 Chief Complaint: leg swelling Narrative: this is an 81-year-old female with past medical history significant for paroxysmal atrial fibrillation, rate controlled and anticoagulated, hypertension, hypothyroidism, patient is a [facility] resident. Presents to the emergency room for evaluation of bilateral lower extremity worsening edema for the last 2 weeks or so, patient denies any shortness of breath, cough, sputum production, chest pain, palpitations, dizziness, lightheadedness, near-syncope, or syncope, no calves pain, no fevers, no rigors, no chills. preliminary workup was significant for brain atretic peptide 94141, chest x-ray showed cardiomegaly and interstitial edema, a CT of the head showed no acute intracranial abnormalities, old parietal and cerebellar infarcts as well as age-related changes. In emergency room patient was found to have a SBP in the 200s and diastolic in the 100's patient received labetalol which brought her blood pressure down to 180 systolic. Patient has been admitted for further evaluation management and treatment. Review of Systems Review of Systems: Bilateral lower extremity swelling. Constitutional: Constitutional: Denies chills, Denies fever(s), Denies malaise and Denies night sweats Eyes: Eyes: Denies change in vision ENT: Denies dysphagia, Denies vertigo, Denies dizziness, Denies nasal congestion, Denies nasal discharge, Denies nasal obstruction and Denies odynophagia Cardiovascular: Cardiovascular: Denies syncope, Denies irregular heart rhythm, Reports leg edema, Denies lightheadedness, Denies radiating jaw, neck or arm pain, Denies palpitations and Denies dyspnea on exertion Respiratory: Respiratory: Denies change in phlegm color, Denies cough, Denies excessive phlegm production and Denies dyspnea Gastrointestinal: Gastrointestinal: Denies abdominal pain, Denies dyspepsia, Denies heartburn, Denies diarrhea, Denies nausea and Denies vomiting Genitourinary: Genitourinary: Denies dysuria Musculoskeletal: Comments: bilateral lower extremity swelling Integumentary/Breasts: Skin/Breast: Denies rash Neurologic: Denies focal weakness and Denies Sensory deficit (Neuro) Psychiatric: Psychiatric: Reports no additional psychiatric complaints and Reports as per HPI Endocrine: Endocrine: Denies cold intolerance, Denies fatigue, Denies flushing, Denies heat intolerance, Denies polyphagia, Denies polydipsia and Denies palpitations Hematologic/Lymphatic: Hematologic/Lymphatic: Reports no additional hematologic/lymphatic complaints and Reports as per HPI Allergic/Immunologic: Allergic/Immunologic: Reports no additional allergic/immunologic complaints and Reports as per HPI PMFSH Past Medical History Medical History Cerebrovascular accident Chronic anticoagulation Hyperlipidemia Hypertension Hypothyroidism Paroxysmal atrial fibrillation Surgical History Surgical History History of right-sided carotid endarterectomy History of thyroidectomy Family History Family History Other Cerebrovascular accident Hypertension Social History Social History (Updated 07/03/21 @ 22:54 by Rebecca Sharp PA-C) Social History: Surrogate decision-maker: Lorne Grace, daughter and son. CODE STATUS: Full code. Smoking status: Former smoker Alcohol intake: current Substance use: current Additional living arrangements comments: Currently living with her son in [place]. Additional occupation/education comments: Retired. Spiritual care concerns: No Meds Home Medications and Allergies Home Medications Medication Instructions Recorded Confirmed Type apixaban 2.5 mg tablet (Eliquis) 2.5 mg BID 07/03/21 03/14/22 History aspirin 81 mg chewabl
[2022-03-14 20:57] LABS: SARS-CoV-2 RNA PCR Negative
--- NOTE | 2022-03-14 21:49 | ADMGEN ---
This patient, Ambar Grace, was admitted to IMU Room 206-02 at 2130. Patient/family oriented to hospital policies and general routines including ID bracelet, bed and alarms, visiting hours, pain management, procedures, bathroom and other care routines, personal items, smoking policy, room service/diet, and visiting hours. Information on how to activate the Rapid Response Team has been discussed. Patient/Family are encouraged to report perceived risks to care and to ask questions if they do not understand what they are told or what they should do.
--- NOTE | 2022-03-14 22:27 | PC.NURSE ---
patient stated that she needs to urinate. c/o bladder feels full. patient was on bedpan for 30min, only dribbled. bladder scan showed 675 still in bladder after urination. ren allison is aware and ordered hernandez catheter.
--- NOTE | 2022-03-14 22:42 | PC.NURSE ---
dr mcdaniel aware of patient receiving lasix after 5. ok to hold lasix for tonight.
[2022-03-15] VITALS (14 sets, daily range): BP systolic 117–171; BP diastolic 62–100; PULSE 65–119; RESP 14–24; TEMP 36.4–36.9; O2SAT 93–100; BMI 24.0
--- NOTE | 2022-03-15 | ECHO_ITS ---
Patient Info Name: Ambar Grace Age: 81 years : 1940 Gender: Female Ht: 60 in Wt: 121 lbs BSA: 1.53 m2 HR: 71 bpm BP: 159 / 89 mmHg Heart Rhythm: Atrial Fibrillation Technical Quality: Fair Exam Date: 03/15/2022 8:24 AM Exam Location: [facility] Pulmonary Patient Status: Outpatient Admit Date: 03/14/2022 Staff Ordering Physician: Aneta Hutson MD Special Events Planner: Tabby Hunt RDCS Attending Provider: Aneta Hutson MD Referring Physician: Haresh TOSCANO; Exam Type: CA echo doppler color flow Study Info Indications - Leg swelling/uncontrolled HTN Complete two-dimensional, color flow and Doppler transthoracic echocardiogram is performed. Summary 1. Left ventricular chamber dimension is normal. 2. Left ventricular systolic function is normal, estimated at 60-65%. 3. There is moderately increased left ventricular wall thickness. 4. Left atrial chamber dimension is severely enlarged. 5. There is borderline mild aortic valve stenosis with a peak velocity of 118 cm/s, mean gradient of 3 mmHg, and aortic valve area of 1.5 cm2. 6. There is trace aortic valve regurgitation. 7. There is mild mitral valve regurgitation. 8. There is mild to moderate tricuspid valve regurgitation. 9. Severe pulmonary hypertension, estimated pulmonary arterial systolic pressure is 69 mmHg. 10. Dilated inferior vena cava with no collapse upon inspiration consistent with significantly elevated right atrial pressure, 15 mmHg. Left Ventricle Left ventricular chamber dimension is normal. Left ventricular systolic function is normal, estimated at 60-65%. There is moderately increased left ventricular wall thickness. The left ventricular diastolic function is indeterminate. Right Ventricle Right ventricular chamber dimension is normal. Right ventricular systolic function is reduced. Left Atria Left atrial chamber dimension is severely enlarged. Right Atria Right atrial chamber dimension is mildly enlarged. Aortic Valve The aortic valve is trileaflet. There is borderline mild aortic valve stenosis with a peak velocity of 118 cm/s, mean gradient of 3 mmHg, and aortic valve area of 1.5 cm2. There is trace aortic valve regurgitation. There is mild aortic valve calcification. Pulmonic Valve The pulmonic valve is not well visualized. There is mild pulmonic regurgitation. Mitral Valve The mitral valve has normal leaflets. There is mild mitral valve regurgitation. The mitral valve annulus is mildly calcified. Tricuspid Valve The tricuspid valve leaflets are normal. There is mild to moderate tricuspid valve regurgitation. Severe pulmonary hypertension, estimated pulmonary arterial systolic pressure is 69 mmHg. Pericardium/Pleural The pericardium appears normal. There is small pericardial effusion with fibrinous material within the pericardial space. No echo evidence for tamponade physiology. Inferior Vena Cava Dilated inferior vena cava with no collapse upon inspiration consistent with significantly elevated right atrial pressure, 15 mmHg. Aorta The aortic root size at the sinus of Valsalva is normal. The prox ascending aorta size is normal. There is mild aortic atherosclerosis. Left Ventricular Outflow Tract Name Value Normal LVOT 2D
[2022-03-15] MEDS: APIXABAN 2.5 MG TABLET BY MOUTH ×3 (00:16→20:49)
[2022-03-15] MEDS: DOXAZOSIN MESYLATE 2 MG TABLET PO ×2 (00:16→20:49)
[2022-03-15] MEDS: LEVOTHYROXINE SODIUM 125 MCG TABLET BY MOUTH (06:00)
[2022-03-15 08:03] LABS: Glucose Point of Care 165 mg/dl (65-105)
[2022-03-15] MEDS: LOSARTAN POTASSIUM 100 MG TABLET PO (08:48)
[2022-03-15] MEDS: ATORVASTATIN 40 MG TABLET 80 MG BY MOUTH (08:48)
[2022-03-15] MEDS: METOPROLOL SUCCINATE EXT REL 100 MG TABCR PO (08:48)
[2022-03-15] MEDS: ASPIRIN 81 MG CHEWABLE TABLET PO (08:48)
[2022-03-15] MEDS: FLUoxetine HCL 10 MG CAPSULE BY MOUTH (08:48)
[2022-03-15] MEDS: FUROSEMIDE INJ 40 MG/4 ML VIAL IV PUSH ×2 (08:53→20:49)
[2022-03-15] MEDS: hydrALAZINE 10 MG TABLET PO ×4 (09:07→20:49)
--- NOTE | 2022-03-15 11:51 | PM.IMPN ---
Progress Note: A&P Assessment and Plan (1) Hypertensive urgency: Code(s): I16.0 - Hypertensive urgency Status: Acute Assessment and Plan: Monitor blood pressure. restart home meds cautious normalization of blood pressure supportive care (2) Acute on chronic heart failure with preserved ejection fraction (HFpEF): Code(s): I50.33 - Acute on chronic diastolic (congestive) heart failure Status: Acute Assessment and Plan: diuresing daily intake and output Gloria catheter in (3) Paroxysmal atrial fibrillation: Code(s): I48.0 - Paroxysmal atrial fibrillation Status: Acute Assessment and Plan: rate controlled anticoagulated Subjective Date/time seen: 03/15/22 11:51 Reports shortness of breath is improved. No chest pain. Exam Narrative: patient is laying in the stretcher Const: General: cooperative, comfortable, no acute distress, well developed, alert, awake and ill appearing chronically Nutritional Appearance: average body habitus Orientation/consciousness: patient oriented x3 HENMT: Head: normal to inspection, normocephalic and atraumatic Ears: hearing grossly normal bilaterally Face and sinus: normal facial exam Eyes: General: appearance normal, both eyes and all related structures Pupils: Equal, round and reactive pupils present EOM: EOMs intact bilaterally Neck: Neck: full ROM, no lymphadenopathy and no JVD Thyroid: thyroid normal Lymphatic: no lymphadenopathy noted Resp: Effort & Inspection: normal respiratory effort and able to speak in complete sentences Auscultation: crackles Cardio: Jugular venous distension: no JVD Rate: regular rate Rhythm: abnormal rhythm irregularly irregular Heart sounds: S1 normal heart sound present and S2 normal heart sound present : General: Yes deferred Skin: Rashes: no rashes Wounds: no wounds Neuro: General: patient oriented x3, CN's II-XI intact bilaterally and Unable to assess gait Cranial nerves: Yes CN's II-XII intact bilaterally and Yes Equal, round and reactive pupils present Cognition (Neuro): normal cognition Speech: normal speech Gait exam (Neuro): Unable to assess gait Motor exam (neuro): 5/5 motor strength present throughout Sensory Exam: No Sensory deficit (Neuro) Extrem: General: edema bilateral Psych: Appearance: grossly normal Objective Data Vital Signs Vital Signs: Vital Signs - 24 hr 03/14/22 14:48 03/14/22 16:00 03/14/22 16:32 Temperature 97.6 F Pulse Rate 95 89 99 Respiratory Rate 18 18 Blood Pressure 155/116 H 222/134 H Pulse Oximetry 100 96 Oxygen Delivery Room Air Room Air 03/14/22 16:00 03/14/22 16:02 03/14/22 16:04 Temperature Pulse Rate 92 90 92 Respiratory Rate 21 H 20 15 Blood Pressure 187/134 H 222/134 H Pulse Oximetry 98 95 97 Oxygen Delivery 03/14/22 16:15 03/14/22 16:30 03/14/22 16:31 Temperature Pulse Rate 73 100 102 H Respiratory Rate 20 28 H 20 Blood Pressure 223/138 H Pulse Oximetry 94 Oxygen Delivery 03/14/22 16:33 03/14/22 16:45 03/14/22 16:47 Temperature Pulse Rate 89 94 86 Respiratory Rate 22 H 20 26 H Blood Pressure 234/136 H Pulse Oximetry 96 95 94 Oxygen Delivery 03/14/22 17:00 03/14/22 17:02 03/14/22 17:15 Temperature Pulse Rate 94 94 92 Respiratory Rate 21 H 22 H 16 Blood Pressure 232/147 H Pulse Oximetry 92 92 91 Oxygen Delivery 03/14/22 17:16 03/14/22 17:31 03/14/22 17:17 Temperature Pulse Rate 95 76 91 Respiratory Rate 29 H 16 25 H Blood Pressure 230/134 H 205/135 H Pulse Oximetry 88 L 94 94 Oxygen Delivery 03/14/22 17:30 03/14/22 17:31 03/14/22 17:45 Temperature Pulse Rate 85 83 80 Respiratory Rate 18 23 H 18 Blood Pressure 205/135 H Pulse Oximetry 96 94 91 Oxygen Delivery 03/14/22 17:46 03/14/22 18:00 03/14/22 18:01 Temperature Pulse Rate 81 70 81 Respiratory Rate 22 H 25 H 22 H Blood Pressure 199/149 H 200/134 H Pulse Ox
[2022-03-15 12:25] LABS: Glucose Point of Care 188 mg/dl (65-105)
--- NOTE | 2022-03-15 13:25 | PCWOUND ---
WOCN NOTE Received notice of possible pressure. spoke to RN, error in charting no pressure present.
[2022-03-15 16:39] LABS: Glucose Point of Care 262 mg/dl (65-105)
[2022-03-15 21:10] LABS: Glucose Point of Care 205 mg/dl (65-105)
[2022-03-16] VITALS (12 sets, daily range): BP systolic 103–156; BP diastolic 40–78; PULSE 64–89; RESP 14–24; TEMP 36.3–36.8; O2SAT 92–98
[2022-03-16] MEDS: LEVOTHYROXINE SODIUM 125 MCG TABLET BY MOUTH (05:17)
[2022-03-16 08:06] LABS: Glucose Point of Care 180 mg/dl (65-105)
[2022-03-16] MEDS: ACETAMINOPHEN 325 MG TABLET 650 MG PO (08:17)
[2022-03-16] MEDS: hydrALAZINE 10 MG TABLET PO ×2 (08:27→17:42)
[2022-03-16] MEDS: ASPIRIN 81 MG CHEWABLE TABLET PO (08:27)
[2022-03-16] MEDS: APIXABAN 2.5 MG TABLET BY MOUTH ×2 (08:28→19:59)
[2022-03-16] MEDS: ATORVASTATIN 40 MG TABLET 80 MG BY MOUTH (08:28)
[2022-03-16] MEDS: FUROSEMIDE INJ 40 MG/4 ML VIAL IV PUSH ×2 (08:28→20:00)
[2022-03-16] MEDS: METOPROLOL SUCCINATE EXT REL 100 MG TABCR PO (08:28)
[2022-03-16] MEDS: LOSARTAN POTASSIUM 100 MG TABLET PO (08:28)
[2022-03-16] MEDS: FLUoxetine HCL 10 MG CAPSULE BY MOUTH (08:28)
[2022-03-16 09:13] LABS: Hematocrit 36.4 % (37.0-47.0); Hemoglobin 11.8 g/dL (12.0-15.0); Mean Corpuscular HGB Conc 32.4 g/dl (32-36); Mean Corpuscular Hemoglobin 28.9 pg (26-34); Mean Platelet Volume 9.7 fl (7.4-10.4); Platelet Count Result 189 k/mm3 (150-375); Red Blood Count 4.09 M/mm3 (4.2-5.4); Red Cell Distribution Width 14.3 % (11.5-14.5); White Blood Count 6.3 K/mm3 (4.5-10.0)
[2022-03-16 09:28] LABS: Anion Gap 4 mmol/L (8-16); Blood Urea Nitrogen 21 mg/dL (7-17); Calcium 8.3 mg/dL (8.4-10.2); Carbon Dioxide 29 mmol/L (22-30); Chloride 99 mmol/L (98-107); Estimated CRCL calculation 24 ml/min; Estimated Glomerular Filt Rate 43; Glucose 148 mg/dL (65-110); Potassium 3.7 mmol/L (3.4-5.0); Sodium 132 mmol/L (137-145)
--- NOTE | 2022-03-16 11:59 | PM.IMPN ---
Progress Note: A&P Assessment and Plan (1) Hypertensive urgency: Code(s): I16.0 - Hypertensive urgency Status: Acute Assessment and Plan: Monitor blood pressure. restart home meds cautious normalization of blood pressure supportive care (2) Acute on chronic heart failure with preserved ejection fraction (HFpEF): Code(s): I50.33 - Acute on chronic diastolic (congestive) heart failure Status: Acute Assessment and Plan: diuresing well daily intake and output Gloria catheter in (3) Paroxysmal atrial fibrillation: Code(s): I48.0 - Paroxysmal atrial fibrillation Status: Acute Assessment and Plan: rate controlled anticoagulated Subjective Date/time seen: 03/16/22 11:59 Breathing better. Exam Narrative: patient is laying in the stretcher Const: General: cooperative, comfortable, no acute distress, well developed, alert, awake and ill appearing chronically Nutritional Appearance: average body habitus Orientation/consciousness: patient oriented x3 HENMT: Head: normal to inspection, normocephalic and atraumatic Ears: hearing grossly normal bilaterally Face and sinus: normal facial exam Eyes: General: appearance normal, both eyes and all related structures Pupils: Equal, round and reactive pupils present EOM: EOMs intact bilaterally Neck: Neck: full ROM, no lymphadenopathy and no JVD Thyroid: thyroid normal Lymphatic: no lymphadenopathy noted Resp: Effort & Inspection: normal respiratory effort and able to speak in complete sentences Auscultation: crackles Cardio: Jugular venous distension: no JVD Rate: regular rate Rhythm: abnormal rhythm irregularly irregular Heart sounds: S1 normal heart sound present and S2 normal heart sound present : General: Yes deferred Skin: Rashes: no rashes Wounds: no wounds Neuro: General: patient oriented x3, CN's II-XI intact bilaterally and Unable to assess gait Cranial nerves: Yes CN's II-XII intact bilaterally and Yes Equal, round and reactive pupils present Cognition (Neuro): normal cognition Speech: normal speech Gait exam (Neuro): Unable to assess gait Motor exam (neuro): 5/5 motor strength present throughout Sensory Exam: No Sensory deficit (Neuro) Extrem: General: edema bilateral Psych: Appearance: grossly normal Objective Data Vital Signs Vital Signs: Vital Signs - 24 hr 03/15/22 12:00 03/15/22 12:00 03/15/22 16:00 Temperature 98.2 F 98.5 F Pulse Rate 119 H 78 80 Respiratory Rate 20 24 H Blood Pressure 135/76 117/87 Pulse Oximetry 97 97 Oxygen Delivery 03/15/22 14:00 03/15/22 16:00 03/15/22 18:00 Temperature Pulse Rate 115 H 79 92 Respiratory Rate Blood Pressure Pulse Oximetry Oxygen Delivery 03/15/22 20:00 03/15/22 20:00 03/15/22 20:00 Temperature 97.6 F Pulse Rate 73 70 70 Respiratory Rate 22 H 22 H Blood Pressure 144/74 H Pulse Oximetry 94 94 Oxygen Delivery Room Air 03/15/22 22:00 03/15/22 23:34 03/16/22 00:00 Temperature 97.8 F Pulse Rate 69 84 76 Respiratory Rate 24 H Blood Pressure 120/65 Pulse Oximetry 95 Oxygen Delivery 03/16/22 00:00 03/16/22 02:00 03/16/22 04:00 Temperature Pulse Rate 76 79 83 Respiratory Rate 24 H Blood Pressure Pulse Oximetry 95 Oxygen Delivery Room Air 03/16/22 04:00 03/16/22 04:00 03/16/22 06:00 Temperature 97.4 F L Pulse Rate 83 89 85 Respiratory Rate 24 H 16 Blood Pressure 138/77 Pulse Oximetry 95 95 Oxygen Delivery Room Air 03/16/22 08:00 03/16/22 08:28 Temperature 97.6 F Pulse Rate 78 83 Respiratory Rate 18 Blood Pressure 156/77 H Pulse Oximetry 98 Oxygen Delivery Intake/Output Intake/Output: Intake & Output 03/13/22 03/14/22 03/15/22 03/16/22 23:59 23:59 23:59 23:59 Intake Total 1380 755 Output Total 2348 8524 [facility], [place] -[id number] [phone] Meds/Results Medications: Active Medications Generic Name Dose Route Start Last A
[2022-03-16 12:49] LABS: Glucose Point of Care 174 mg/dl (65-105)
[2022-03-16 16:23] LABS: Glucose Point of Care 147 mg/dl (65-105)
--- NOTE | 2022-03-16 16:23 | PC.NURSE ---
This patient, Moriah Grace, was transferred to [[id number]] on 03/16/22 at 1623. Personal belongings sent with patient. Report given to [Wanda ]. Appropriate documentation sent with patient.
--- NOTE | 2022-03-16 17:54 | PC.NURSE ---
This patient, Moriah Grace, was received from IMU on 03/16/22 at 1655. Patient/family oriented to unit policies and routines
[2022-03-16] MEDS: DOXAZOSIN MESYLATE 2 MG TABLET PO (19:59)
[2022-03-16 21:11] LABS: Glucose Point of Care 213 mg/dl (65-105)
[2022-03-17] VITALS (8 sets, daily range): BP systolic 120–151; BP diastolic 70–71; PULSE 65–80; RESP 18; TEMP 36.4–36.6; O2SAT 93–98
[2022-03-17] MEDS: LEVOTHYROXINE SODIUM 125 MCG TABLET BY MOUTH (05:43)
[2022-03-17 07:50] LABS: Glucose Point of Care 145 mg/dl (65-105)
[2022-03-17] MEDS: LOSARTAN POTASSIUM 100 MG TABLET PO (08:33)
[2022-03-17] MEDS: METOPROLOL SUCCINATE EXT REL 100 MG TABCR PO (08:33)
[2022-03-17] MEDS: APIXABAN 2.5 MG TABLET BY MOUTH (08:33)
[2022-03-17] MEDS: ATORVASTATIN 40 MG TABLET 80 MG BY MOUTH (08:33)
[2022-03-17] MEDS: hydrALAZINE 10 MG TABLET PO ×2 (08:34→12:03)
[2022-03-17] MEDS: FLUoxetine HCL 10 MG CAPSULE BY MOUTH (08:34)
[2022-03-17] MEDS: ASPIRIN 81 MG CHEWABLE TABLET PO (08:34)
[2022-03-17] MEDS: FUROSEMIDE INJ 40 MG/4 ML VIAL IV PUSH (08:34)
--- NOTE | 2022-03-17 10:44 | PM.DS ---
DS: Admitting Diagnosis Discharge Date March 17, 2022 Admitting Diagnosis CHF exacerbation, acute on chronic diastolic DS: Discharge Diagnosis Discharge Diagnosis (1) Hypertensive urgency: Code(s): I16.0 - Hypertensive urgency Status: Acute Assessment and Plan: Blood pressure is improved. Resume home medications on discharge (2) Acute on chronic heart failure with preserved ejection fraction (HFpEF): Code(s): I50.33 - Acute on chronic diastolic (congestive) heart failure Status: Acute Assessment and Plan: Patient was admitted for shortness of breath and hypertensive urgency. She did have a little extra fluid as well so she was admitted for acute on chronic diastolic CHF. Patient be discharged little bit of Lasix. She was not taking Lasix prior. (3) Paroxysmal atrial fibrillation: Code(s): I48.0 - Paroxysmal atrial fibrillation Status: Acute Assessment and Plan: rate controlled anticoagulated DS: Summary Hospital Course Hospital Course: See discharge planning diagnoses Time Spent with Patient Time attestation: Total time spent providing and/or coordinating discharge services: Exam Narrative: patient is laying in the stretcher Const: General: cooperative, comfortable, no acute distress, well developed, alert, awake and ill appearing chronically Nutritional Appearance: average body habitus Orientation/consciousness: patient oriented x3 HENMT: Head: normal to inspection, normocephalic and atraumatic Ears: hearing grossly normal bilaterally Face and sinus: normal facial exam Eyes: General: appearance normal, both eyes and all related structures Pupils: Equal, round and reactive pupils present EOM: EOMs intact bilaterally Neck: Neck: full ROM, no lymphadenopathy and no JVD Thyroid: thyroid normal Lymphatic: no lymphadenopathy noted Resp: Effort & Inspection: normal respiratory effort and able to speak in complete sentences Auscultation: crackles Cardio: Jugular venous distension: no JVD Rate: regular rate Rhythm: abnormal rhythm irregularly irregular Heart sounds: S1 normal heart sound present and S2 normal heart sound present : General: Yes deferred Skin: Rashes: no rashes Wounds: no wounds Neuro: General: patient oriented x3, CN's II-XI intact bilaterally and Unable to assess gait Cranial nerves: Yes CN's II-XII intact bilaterally and Yes Equal, round and reactive pupils present Cognition (Neuro): normal cognition Speech: normal speech Gait exam (Neuro): Unable to assess gait Motor exam (neuro): 5/5 motor strength present throughout Sensory Exam: No Sensory deficit (Neuro) Extrem: General: edema bilateral Psych: Appearance: grossly normal DS: Data Data Completed and Pending Labs on day of discharge: Labs from last 24 hours 03/17/22 03/16/22 03/16/22 07:44 19:58 15:54 POC Capillary Glucose 145 H 213 H 147 H 03/16/22 12:42 POC Capillary Glucose 174 H Discharge Plan Discharge Attending physician on discharge: Bran Alfaro Discharging Clinician: Bran Alfaro Patient Disposition: Home, Self-Care Activity: no preference Diet: as tolerated Patient Instructions: Antibiotic Form, Apixaban (By mouth), Heart Failure (ED) Stand Alone Forms: General Discharge Information Follow-up/Referrals: PHYSICIAN,LINUX ENGINEER [Primary Care Provider] - Discharge Medications: New furosemide [Lasix] 20 mg tablet 20 mg PO DAILY 30 Days Qty: 30 0RF Continued atorvastatin 80 mg tablet 80 mg DAILY metoprolol succinate 100 mg tablet extended release 24 hr 100 mg PO DAILY levothyroxine 125 mcg tablet 125 mcg DAILY Eliquis 2.5 mg tablet 2.5 mg BID doxazosin 2 mg Tablet 2 mg PO HS aspirin 81 mg Tablet,Chewable 81 mg PO DAILY losartan 100 mg tablet 100 mg PO DAILY Qty: 30 0RF fluoxetine 10 mg capsule 10 cap DAILY Date of admission: 0
[2022-03-17 12:01] LABS: Glucose Point of Care 155 mg/dl (65-105)
[2022-03-17 12:35] LABS: EDCOVIDSCREEN Negative (Negative)
== END 2022-03-17 16:08 | DRG 291 ==
LOC: ANHED 19:27 → ANHIMU 22:04 → ANH2MED 03-17 10:43 → ANHIMU 03-20 14:41
PROVIDERS: Admitting Provider Internal Medicine; Emergency Provider General Practice; Visit Provider Chiropractor
DX: I11.0 Hypertensive heart disease with heart failure (principal); I50.33 Acute on chronic diastolic (congestive) heart failure; I16.0 Hypertensive urgency; I48.0 Paroxysmal atrial fibrillation; Z20.822 Contact with and (suspected) exposure to COVID-19; E03.9 Hypothyroidism, unspecified; E78.5 Hyperlipidemia, unspecified; Z86.73 Personal history of transient ischemic attack (TIA), and cerebral infarction without residual deficits; Z79.01 Long term (current) use of anticoagulants; Z87.891 Personal history of nicotine dependence
CPT/HCPCS: 36415; 36600; 70450; 71045; 80048; 80053; 82375; 82805; 82948; 83050; 83880; 84484; 85025; 85027; 85610; 85730; 87426; 93005; 93306; 96374; 96375; 96376; 97162; 97165; 99285; A9270; C9803; G0378; J1940; U0003; U0005

== ENCOUNTER 2022-03-26 20:34 | Inpatient (IN) | payer OTHER, SELFPAY ==
[2022-03-26] VITALS (17 sets, daily range): BP systolic 141–170; BP diastolic 78–101; PULSE 84–109; RESP 14–27; TEMP 36.6–37.2; O2SAT 90–98
--- NOTE | ~2022-03-26 | US_ITS ---
US abdomen limited INDICATION: Elevated liver function tests. PROCEDURE: Realtime right upper abdominal ultrasound. COMPARISON: No prior studies for comparison. FINDINGS: The pancreas is normal without focal mass or pancreatic ductal dilation. There is a nodula r appearance to the liver surface, suspicious for cirrhosis. There is a cyst of the left hepatic lobe measuring 1.2 cm. There is gallbladder wall thickening measuring 0.43 cm. There is gallbladder sludg e. No definite gallstones or pericholecystic fluid. There is normal directional flow in the portal v ein. The gallbladder is normal without stones, gallbladder wall thickening or pericholecystic fluid. Comm on bile duct measures 3 mm. No sonographic Ellis's sign. IMPRESSION: 1: Gallbladder sludge with wall thickening measuring 0.43 cm. Consider acalculous cholecystitis in th e appropriate clinical setting. 2: Nodular liver surface, suspicious for cirrhosis. Reviewed, dictated and finalized at location A. IMPRESSION: 1: Gallbladder sludge with wall thickening measuring 0.43 cm. Consider acalculo us cholecystitis in the appropriate clinical setting. 2: Nodular liver surface, suspicious for cirrhosis.
--- NOTE | ~2022-03-26 | CT_ITS ---
EXAMINATION: CT abdomen pelvis w con DATE: 03/26/2022 22:01 INDICATION: ab pain TECHNIQUE: Computed tomography (CT) of the abdomen and pelvis was performed with 100 mL Omnipaque-300 intravenous contrast. Automated exposure control and iterative reconstruction technique were employe d. The dose-length product was 331.30 mGy-cm. COMPARISON: 07/07/2021. FINDINGS: Lower thorax: Senescent change and bibasilar atelectasis. Scattered groundglass opacities. Cardiomega ly. Aortic valve and coronary artery calcification. Liver: Enlarged heterogeneous hypoenhancing liver. Simple left liver cyst. Periportal edema. Biliary/Gallbladder: Pericholecystic fluid, with sludge and/or stones. No bile duct dilation. Pancreas: No mass or duct dilation. Spleen: Normal. Adrenals:Somewhat nodular, thickened adrenals, likely hyperplasia. Kidneys: No mass, stone, or hydronephrosis. 19 mm indeterminate density left lower pole cyst. 1 cm he morrhagic left lower pole cyst. GI tract: No small or large bowel dilation. Appendix not visualized. Diverticulosis without diverticu litis. Mesentery/Peritoneum: Moderate volume free pelvic fluid. Retroperitoneum: No mass. Atherosclerotic abdominal aortic and/or arterial calcifications. Pelvis: Uterus is absent. Bladder wall thickening, mucosal hyperemia, and surrounding inflammation. Soft Tissues: Soft tissues and body wall unremarkable. Bones: No acute osseous finding. IMPRESSION: An IT related problem prevented uploading this scan and several others to [employer]. I was notified at 11:45 PM. 1. Pulmonary opacities likely represent pulmonary edema overlying senescent changes. 2. Pericholecystic fluid may represent acute cholecystitis or nonspecific fluid from chronic liver di sease. 3. Heterogeneous liver parenchyma likely exaggerated by slightly arterial phase of the scan, however hepatitis and cirrhosis could appear similar. 4. Indeterminate 19 mm left lower pole renal cyst, recommend nonemergent but timely renal MRI or CT f or further evaluation. 5. Cystitis. 6. Moderate volume free pelvic fluid. Reviewed, dictated and finalized at location K. IMPRESSION: An IT related problem prevented uploading this scan and several others to [employer]. I was notified at 11:45 PM. 1. Pulmonary opacities likely represent pulmonary edema overlying senescent rukhsana nges. 2. Pericholecystic fluid may represent acute cholecystitis or nonspecific fluid from chronic liver disease. 3. Heterogeneous liver parenchyma likely exaggerated by slightly arterial phase of the scan, however hepatitis and cirrhosis could appear similar. 4. Indeterminate 19 mm left lower pole renal cyst, recommend nonemergent but ti joyce renal MRI or CT for further evaluation. 5. Cystitis. 6. Moderate volume free pelvic fluid.
--- NOTE | ~2022-03-26 | NM_ITS ---
EXAMINATION: NM hepatobiliary wo pharm DATE: 03/28/2022 13:31 INDICATION: Cholecystitis. COMPARISON: Ultrasound dated 03/27/[address] dated 03/22/2022 TECHNIQUE: 4.8 mCi Tc-99m mebrofenin (Choletec) was administered intravenously. Scintigraphic images of the abdomen were obtained for one hour. FINDINGS: There is normal clearance of radiotracer from the blood pool. There is homogeneous tracer u ptake by the liver. Activity progresses primarily to the gallbladder with additional small amount of activity gradually extending into the small bowel. IMPRESSION: 1. Normal hepatobiliary scan with significant activity filling the gallbladder which essentially exc ludes acute calculus cholecystitis. Reviewed, dictated and finalized at location A. IMPRESSION: 1. Normal hepatobiliary scan with significant activity filling the gallbladder which essentially excludes acute calculus cholecystitis.
--- NOTE | ~2022-03-26 | CT_ITS ---
EXAMINATION: CT brain wo con DATE: 03/26/2022 21:56 INDICATION: AMS . TECHNIQUE: Computed tomography (CT) of the head was performed without intravenous contrast. The mA wa s adjusted according to patient size. Iterative reconstruction technique was employed. The dose-lengt h product was 605.33 mGy-cm. COMPARISON: 03/14/2022. FINDINGS: No acute intracranial hemorrhage or extra-axial fluid collection. No hydrocephalus, mass, or herniation. No acute ischemic infarct. Unremarkable dural venous sinus attenuation. No acute osseous abnormality. Mucosal thickening in the ethmoid air cells, otherwise the aerated spaces are clear. Mild atrophy and chronic white matter change. Old right cerebellar infarct. Right posterior frontal/p arietal encephalomalacia. IMPRESSION: An IT related problem prevented normal uploading for [employer] read, I was notified at 10:45 PM. No acute intracranial process. Reviewed, dictated and finalized at location K. IMPRESSION: An IT related problem prevented normal uploading for [facility] read, I was notifi ed at 10:45 PM. No acute intracranial process.
--- NOTE | ~2022-03-26 | CT_ITS ---
EXAMINATION: CT brain wo con DATE: 03/31/2022 18:41 INDICATION: Transient alteration of awareness. Lethargy. TECHNIQUE: Computed tomography (CT) of the head was performed without intravenous contrast. The dose- length product was 605.33 mGy-cm. Automated exposure control and iterative reconstruction technique w ere employed. COMPARISON: CT dated 03/26/2022 FINDINGS: There is a chronic right parietal infarction with encephalomalacia. Generalized atrophy. Th ere are scattered moderate periventricular and subcortical white matter changes, most likely related to small vessel ischemic disease (microangiopathy). Chronic right cerebellar infarctions. No acute he morrhage or infarction. Minimal mucosal thickening of the paranasal sinuses. Mastoids are pneumatized . IMPRESSION: 1. No acute intracranial abnormality. 2: Chronic right parietal and cerebellar infarctions. Reviewed, dictated and finalized at location A.
--- NOTE | ~2022-03-26 | XR_ITS ---
EXAMINATION: XR chest 1V portable INDICATION: Hypoxia TECHNIQUE: Portable AP chest at 1632 hours COMPARISON: 03/14/2022 FINDINGS: Cardiomegaly is noted. There is a mild diffuse interstitial pattern with slight interval im provement. There are small pleural effusions. Minimal airspace opacities are present in the lung base s. There is no pneumothorax. There is a healing fracture of the proximal left humerus. IMPRESSION: 1. Cardiomegaly with improving pulmonary edema. 2. Small pleural effusions. 3. Minimal bibasilar airspace opacity, consistent with atelectasis versus pneumonia. Reviewed, dictated and finalized at location L. IMPRESSION: 1. Cardiomegaly with improving pulmonary edema. 2. Small pleural effusions. 3. Minimal bibasilar airspace opacity, consistent with atelectasis versus pneum onia.
--- NOTE | 2022-03-26 20:42 | ECG_ITS ---
Measurements Intervals [place] Rate: 96 P: [place]: 0 QRS: 12 QRSD: 84 T: 26 QT: 332 QTc: 419 Interpretive Statements ATRIAL FIBRILLATION BASELINE ARTIFACT- I, II, III, AVR, AVL, V1 ABNORMAL ECG Electronically Signed On 03-26-2022 20:53:31 CDT by Kodi Gan D.O.
--- NOTE | 2022-03-26 20:46 | ED.GENADULT ---
HPI - General Adult General Chief complaint: Altered Mental Status Stated complaint: ams per staff Time Seen by Provider: 03/26/22 20:34 History of Present Illness HPI narrative: 81-year-old female presenting to the emergency department for evaluation of altered mental status. Patient states that she does feel confused. Patient was unaware of the year but is aware of her recent medical history. Patient is aware that she had a recent hospitalization and is aware that she does feel confused. Patient denies any other complaints. Patient does have history of atrial fibrillation. Patient is on metoprolol and on Eliquis. Related Data Home Medications Medication Instructions Recorded Confirmed apixaban 2.5 mg tablet (Eliquis) 2.5 mg BID 07/03/21 03/26/22 aspirin 81 mg chewable tablet 81 mg PO DAILY 07/03/21 03/26/22 atorvastatin 80 mg tablet 80 mg PO DAILY 07/03/21 03/26/22 doxazosin 2 mg tablet 2 mg PO HS 07/03/21 03/26/22 levothyroxine 125 mcg tablet 125 mcg PO DAILY 07/03/21 03/26/22 metoprolol succinate 100 mg 100 mg PO DAILY 07/03/21 03/26/22 tablet,extended release 24 hr fluoxetine 10 mg capsule 1 cap PO DAILY 03/14/22 03/27/22 Allergies Allergy/AdvReac Type Severity Reaction Status Date / Time No Known Drug Allergies Allergy Unknown Unknown Verified 03/14/22 15:51 Review of Systems Review of Systems: CONSTITUTIONAL: Denies fever, chills, or sweats. EYES: Denies visual changes, redness, or discharge. ENT: Denies rhinorrhea, congestion, sore throat, or otalgia. CARDIOVASCULAR: Denies chest pain, palpitations, or edema. RESPIRATORY: Denies cough or dyspnea. GASTROINTESTINAL: Denies abdominal pain, nausea, vomiting, or diarrhea. GENITOURINARY: Denies dysuria or hematuria. SKIN: Denies rash or itching. MUSCULOSKELETAL: Denies back pain, joint pain, or myalgia. NEUROLOGIC: Denies headache, numbness, or weakness. PSYCHIATRIC: Patient does report she feels confused. [facility] Past Medical History Medical History (Updated 03/27/22 @ 05:09 by George Locke MD) Aortic valve stenosis Mild aortic valve stenosis with a valve area of 1.5 cm2 on echocardiogram in March 2022. Cerebrovascular accident Chronic anticoagulation Hyperlipidemia Hypertension Hypothyroidism Paroxysmal atrial fibrillation Pulmonary hypertension Severe pulmonary hypertension with a PASP of 69 mmHg on echocardiogram in March 2022. Right-sided heart failure Surgical History Surgical History History of right-sided carotid endarterectomy History of thyroidectomy Family History Family History Other Cerebrovascular accident Hypertension Social History Social History (Updated 03/26/22 @ 23:33 by Rebecca Sharp PA-C) Social History: Surrogate decision-maker: Lorne Grace, daughter and son. CODE STATUS: Full code. Smoking status: Former smoker Alcohol intake: never Substance use: current Substance use type: does not use Additional living arrangements comments: Assisted living at [facility]. Additional occupation/education comments: Retired. Spiritual care concerns: No Exam Narrative: APPEARANCE: Well appearing, no pain, no distress, well-nourished. HEAD: normocephalic, atraumatic. EYES: PERRLA/EOMI, conjunctivae clear. NOSE: Normal no drainage NECK: Supple. No adenopathy, no masses. RESPIRATORY: Airway patent, respirations nonlabored. Clear to auscultation bilaterally, no rales, rhonchi, wheezing. CARDIOVASCULAR: Regular rate and rhythm without murmurs rubs or gallops. ABDOMINAL: Soft, nontender, nondistended, normal bowel sounds MUSCULOSKELETAL: Moves all extremities. Strength/ROM intact, No edema, No calf tenderness. NEURO: Alert. Cranial nerves II through XII intact. Grossly intact SKIN: Warm, dry. Normal Color PSYCHIATRIC: Normal affect/mood. Course Course Emergency Course: Barbra
[2022-03-26 21:25] LABS: Basophils Percent Auto 0.2 % (0.2-1.2); Hematocrit 35.9 % (37.0-47.0); Hemoglobin 11.2 g/dL (12.0-15.0); Immature Granulocyte Absolute 0.11 K/mm3 (0.00-0.031); Immature Granulocyte Percent A 0.9 % (0-0.5); Lymphocytes Absolute Auto 0.24 K/mm3 (0.9-3.2); Mean Corpuscular HGB Conc 31.2 g/dl (32-36); Mean Corpuscular Hemoglobin 28.4 pg (26-34); Mean Corpuscular Volume 91.1 fl (80-100); Mean Platelet Volume 10.1 fl (7.4-10.4); Monocytes Absolute Auto 0.9 K/mm3 (0.1-0.6); Monocytes Percent Auto 7.5 % (2.6-8.5); Neutrophils Absolute Auto 10.8 K/mm3 (1.3-6.7); Neutrophils Percent Auto 89.4 % (45.5-73.1); Platelet Count Result 159 k/mm3 (150-375); Red Blood Count 3.94 M/mm3 (4.2-5.4); Red Cell Distribution Width 13.9 % (11.5-14.5)
[2022-03-26 21:26] LABS: Appearance Urine Turbid (Clear); Bilirubin Urine 1+ (Negative); Blood Urine 3+ (Negative); Color Urine Amber (Yellow); Glucose Urine UA Negative (Negative); Ketones Urine Negative (Negative); Leukocyte Esterase Ur 3+ LEU/UL (Negative); Nitrate Urine Negative (Negative); Protein Urine 3+ mg/dL (Negative); Specific Grav Ur 1.015 (1.001-1.035); pH Urine >=9.0 (5.0-9.0)
[2022-03-26 21:32] LABS: Magnesium 1.6 mg/dL (1.6-2.3)
[2022-03-26 21:33] LABS: Alanine Aminotransferase 91 U/L (6-35); Albumin Level 4.3 g/dL (3.5-5.1); Alkaline Phosphatase 157 U/L (38-126); Anion Gap 10 mmol/L (8-16); Aspartate Amino Transferase 72 U/L (14-36); Bilirubin,Total 1.4 mg/dL (0.2-1.3); Blood Urea Nitrogen 35 mg/dL (7-17); Calcium 8.9 mg/dL (8.4-10.2); Carbon Dioxide 28 mmol/L (22-30); Chloride 99 mmol/L (98-107); Estimated Glomerular Filt Rate 39; Glucose 268 mg/dL (65-110); Potassium 4.1 mmol/L (3.4-5.0); Sodium 137 mmol/L (137-145)
[2022-03-26 21:35] LABS: RBC Urine >75 /hpf (0-2); WBC Urine >75 /hpf
[2022-03-26 21:37] LABS: Add Urine Microscopic? YES
--- NOTE | 2022-03-26 23:10 | PM.IMHP ---
H&P: HPI History of Present Illness Date/Time: 03/26/22 23:10 Chief Complaint: Confusion and diarrhea. Narrative: This is a very pleasant 81-year-old female with history of stroke, hypertension, hyperlipidemia, paroxysmal atrial fibrillation on long-term anticoagulation, dyslipidemia, hypothyroidism status post thyroidectomy for thyroid cancer, and severe pulmonary hypertension who presented to the emergency department via EMS from [facility] for evaluation of confusion and diarrhea. She is known to the hospital service from a recent admission between 03/14 and 03/17/2022 at which time she was admitted with acute on chronic congestive heart failure and hypertensive urgency. Echocardiogram at that time showed a preserved ejection fraction of 60 to 65% with severe pulmonary hypertension and an estimated PASP of 69 mmHg. She was diuresed with improvement in her volume status and was discharged back to her assisted living facility. Over the past several days she has started to feel unwell with generalized malaise, chills, and mild confusion. She has also had a couple of episodes of diarrhea each day since Sunday. Pertinent findings on workup today include an increase in BUN and creatinine from baseline as well as mild LFT elevation and urine consistent with UTI. With further questioning she does endorse dysuria as detailed above. She denies abdominal pain but she has had a decrease in appetite with some nausea. She denies fever, sinus congestion, sore throat, cough, and vomiting. Clear of note, the patient had 2 witnessed sinus pauses in the emergency department, one lasted approximately 3 seconds and the other 5 seconds. Patient was remarkably asymptomatic and she denied feelings of syncope, presyncope, chest discomfort, and palpitations Review of Systems Review of Systems: 12 systems were reviewed. No syncope or near syncope. No headache or neck ache. No chest pain or pleuritic pain. No shortness of breath. No significant lower extremity edema. No blood or mucus in the stool. Except as documented, all other systems were reviewed and are negative. [facility] Past Medical History Medical History (Updated 03/26/22 @ 23:41 by Rebecca Sharp PA-C) Aortic valve stenosis Mild aortic valve stenosis with a valve area of 1.5 cm2 on echocardiogram in March 2022. Cerebrovascular accident Chronic anticoagulation Hyperlipidemia Hypertension Hypothyroidism Paroxysmal atrial fibrillation Pulmonary hypertension Severe pulmonary hypertension with a PASP of 69 mmHg on echocardiogram in March 2022. Right-sided heart failure Surgical History Surgical History History of right-sided carotid endarterectomy History of thyroidectomy Family History Family History Other Cerebrovascular accident Hypertension Social History Social History (Updated 03/26/22 @ 23:33 by Rebecca Sharp PA-C) Social History: Surrogate decision-maker: Lorne carvajal Mateo Grace, daughter and son. CODE STATUS: Full code. Smoking status: Former smoker Alcohol intake: never Substance use: never Additional living arrangements comments: Assisted living at [facility]. Additional occupation/education comments: Retired. Spiritual care concerns: No Meds Home Medications and Allergies Home Medications Medication Instructions Recorded Confirmed Type apixaban 2.5 mg tablet (Eliquis) 2.5 mg BID 07/03/21 03/14/22 History aspirin 81 mg chewable tablet 81 mg PO DAILY 07/03/21 03/14/22 History atorvastatin 80 mg tablet 80 mg DAILY 07/03/21 03/14/22 History doxazosin 2 mg tablet 2 mg PO HS 07/03/21 03/14/22 History levothyroxine 125 mcg tablet 125 mcg DAILY 07/03/21 03/14/22 History metoprolol succinate 100 mg 100 mg PO DAILY 07/03/21 03/14/22 History tablet,extended release 24 hr losartan 100 mg tablet 100 mg PO DAILY #30 tabs 07/13/21 03/14/22 Henry
[2022-03-27] VITALS (23 sets, daily range): BP systolic 131–161; BP diastolic 70–96; PULSE 74–106; RESP 12–25; TEMP 36.3–38.9; O2SAT 91–99; BMI 25.9
[2022-03-27 00:05] LABS: SARS-CoV-2 RNA PCR Negative
[2022-03-27 00:19] LABS: Magnesium 1.7 mg/dL (1.6-2.3)
[2022-03-27 00:20] LABS: Hemoglobin A1C 7.7 % (<5.7)
[2022-03-27 00:22] LABS: Lactate Dehydrogenase 620 U/L (313-618)
[2022-03-27 00:59] LABS: Thyroid Stimulating Hormone Reflex 0.717 uIU/mL (0.465-4.68)
[2022-03-27 01:01] LABS: Ammonia < 9 umol/L (9-30)
[2022-03-27 01:21] LABS: Hepatitis B Surface Antigen Negative (Negative)
--- NOTE | 2022-03-27 01:24 | ADMGEN ---
This patient, Moriah Grace, was admitted to IMU Room 202-. Patient/family oriented to hospital policies and general routines including ID bracelet, bed and alarms, visiting hours, pain management, procedures, bathroom and other care routines, personal items, smoking policy, room service/diet, and visiting hours. Information on how to activate the Rapid Response Team has been discussed. Patient/Family are encouraged to report perceived risks to care and to ask questions if they do not understand what they are told or what they should do.
[2022-03-27 01:27] LABS: HAV RESULT Negative (Negative); Hepatitis B Core IgM Result Negative (Negative)
[2022-03-27 01:39] LABS: Hepatitis C Virus Antibody Negative (Negative)
[2022-03-27] MEDS: SODIUM CHLORIDE 0.9% IV 1,000 ML 75 ML IV CONT (02:06)
[2022-03-27] MEDS: ACETAMINOPHEN 325 MG TABLET 650 MG PO ×2 (04:33→14:49)
[2022-03-27] MEDS: LEVOTHYROXINE SODIUM 125 MCG TABLET PO (06:12)
[2022-03-27 07:59] LABS: Glucose Point of Care 194 mg/dl (65-105)
--- NOTE | 2022-03-27 08:58 | PM.IMPN ---
Progress Note: A&P Assessment and Plan (1) Urinary tract infection: Code(s): N39.0 - Urinary tract infection, site not specified Status: Acute Assessment and Plan: Zosyn started March 27 for UTI as well as possible cholecystitis, follow blood and urine cultures (2) Acute kidney injury: Code(s): N17.9 - Acute kidney failure, unspecified Status: Acute Assessment and Plan: creatinine was 1.3 with a BUN of 35 upon admission, after hydration, creatinine came down to 1.1, BUN essentially unchanged at 36, continue IV fluids and reassess in the morning (3) Sinus pause: Code(s): I45.5 - Other specified heart block Status: Acute Assessment and Plan: Sinus pause x2 in the emergency department, reportedly 2 to 3 seconds and 5 seconds. She was alert, oriented, and asymptomatic. At this time we will hold her beta-kika and admit to IMU for close monitoring. Upon review of telemetry strips, this pause cannot be found on any strips. Perhaps it was artifact, misread or lost. (4) Confusion: Code(s): R41.0 - Disorientation, unspecified Status: Acute Assessment and Plan: Patient reports mild confusion but she is alert and oriented. 03/27: Appears resolved, only lethargic (5) Transaminitis: Code(s): R74.01 - Elevation of levels of liver transaminase levels Status: Acute Assessment and Plan: Etiology unclear. Abdominal exam is benign. Check right upper quadrant ultrasound and hepatitis panel. Hold statin. 03/27: Ultrasound concerning for cholecystitis, General surgery consulted, patient NPO, some concern for possible cirrhosis as well (6) Chronic heart failure with preserved ejection fraction: Code(s): I50.32 - Chronic diastolic (congestive) heart failure Status: Inactive Assessment and Plan: Clinically compensated but in fact she is a bit dry. Monitor volume status while judiciously hydrating. 03/27: Appears somewhat dehydrated, improving (7) Hyperglycemia: Code(s): R73.9 - Hyperglycemia, unspecified Status: Acute Assessment and Plan: Accu-Cheks plus sliding scale insulin, A1c is 7.7, fasting glucose was 184 this morning Subjective Date/time seen: 03/27/22 08:58 Interval history: Patient quite somnolent, lying in bed. Nursing staff states she has been sleeping most of the day. She is easy to awaken, an alert, oriented and cooperative while awake. She states she just feels very tired and weak. She did spike fevers this morning from 1:00 a.m. until 5:00 a.m. from 100.2 up to 102.1. She was given Tylenol at 4:30 a.m., fevers have since resolved.? No overnight events noted.? No chest pain or shortness of breath.? No nausea, vomiting or diarrhea.? Review of Systems Review of Systems: ?12 point review of systems was assessed and was negative except as noted in the HPI Exam Narrative: General:??No acute distress, lethargic, but alert and oriented HEENT:? Atraumatic, normocephalic, mucous membranes moist CV:? irregularly irregular Lungs:? Clear to auscultation bilaterally, no rales or crackles noted, no wheezes, good air entry Abdomen:? Soft, nontender, nondistended Extremities:? Normal to inspection Skin:? No rashes noted, no lesions or wounds seen Psych:? Euthymic, normal affect Objective Data Vital Signs Vital Signs: Vital Signs - 24 hr 03/26/22 20:43 03/26/22 23:13 03/26/22 20:47 Temperature 97.9 F 99.0 F Pulse Rate 93 88 96 Respiratory Rate 25 H 18 22 H Blood Pressure 170/94 H 141/101 H Pulse Oximetry 93 98 94 Oxygen Delivery Room Air 03/26/22 21:00 03/26/22 21:01 03/26/22 21:15 Temperature Pulse Rate 98 84 100 Respiratory Rate 20 27 H 14 Blood Pressure 169/97 H Pulse Oximetry 92 90 Oxygen Delivery 03/26/22 21:16 03/26/22 21:30 03/26/22 21:31 Temperature Pulse Rate 96 88 91 Respiratory Rate 21 H 22 H 22 H Blood P
[2022-03-27 09:29] LABS: Hematocrit 31.7 % (37.0-47.0); Hemoglobin 10.3 g/dL (12.0-15.0); Mean Corpuscular HGB Conc 32.5 g/dl (32-36); Mean Corpuscular Hemoglobin 29.2 pg (26-34); Mean Corpuscular Volume 89.8 fl (80-100); Mean Platelet Volume 11.1 fl (7.4-10.4); Platelet Count Result 159 k/mm3 (150-375); Red Blood Count 3.53 M/mm3 (4.2-5.4); Red Cell Distribution Width 14.2 % (11.5-14.5); White Blood Count 8.5 K/mm3 (4.5-10.0)
[2022-03-27] MEDS: FLUoxetine HCL 10 MG CAPSULE PO (09:29)
[2022-03-27] MEDS: ATORVASTATIN 40 MG TABLET 80 MG PO (09:29)
[2022-03-27] MEDS: ASPIRIN 81 MG CHEWABLE TABLET PO (09:30)
[2022-03-27] MEDS: APIXABAN 2.5 MG TABLET PO ×2 (09:30→17:26)
[2022-03-27 09:52] LABS: Alanine Aminotransferase 66 U/L (6-35); Albumin Level 3.4 g/dL (3.5-5.1); Alkaline Phosphatase 116 U/L (38-126); Anion Gap 8 mmol/L (8-16); Aspartate Amino Transferase 51 U/L (14-36); Bilirubin,Total 0.9 mg/dL (0.2-1.3); Blood Urea Nitrogen 36 mg/dL (7-17); Calcium 8.2 mg/dL (8.4-10.2); Carbon Dioxide 27 mmol/L (22-30); Chloride 103 mmol/L (98-107); Estimated CRCL calculation 29 ml/min; Estimated Glomerular Filt Rate 48; Glucose 184 mg/dL (65-110); Potassium 4.2 mmol/L (3.4-5.0); Sodium 138 mmol/L (137-145)
[2022-03-27 10:04] LABS: Band Neutrophils Percent 7 % (0-6); Hypochromasia 1+ (NORMAL); Large Platelets Present; Lymphocytes Absolute Manual 0.68 K/mm3 (1.1-4.5); Monocytes Absolute Manual 0.34 K/mm3 (0.1-0.90); Monocytes Percent Manual 4 % (3-9); Neutrophils Absolute Manual 7.48 K/mm3 (1.7-7.2); Neutrophils Percent Manual 81 % (46-73); Platelet Estimate Adequate (Adequate); Total Cells Counted 100
[2022-03-27 12:12] LABS: Glucose Point of Care 165 mg/dl (65-105)
[2022-03-27 17:15] LABS: Glucose Point of Care 152 mg/dl (65-105)
[2022-03-27] MEDS: DOXAZOSIN MESYLATE 2 MG TABLET PO (20:27)
[2022-03-27 20:43] LABS: Glucose Point of Care 155 mg/dl (65-105)
[2022-03-28] VITALS (16 sets, daily range): BP systolic 148–184; BP diastolic 76–123; PULSE 83–124; RESP 16–20; TEMP 36.1–37.2; O2SAT 92–99
[2022-03-28 04:44] LABS: Basophils Percent Auto 0.2 % (0.2-1.2); Hematocrit 33.2 % (37.0-47.0); Hemoglobin 10.4 g/dL (12.0-15.0); Immature Granulocyte Absolute 0.05 K/mm3 (0.00-0.031); Immature Granulocyte Percent A 0.6 % (0-0.5); Immature Platelet Fraction Pct 3.3 % (0.9-11.2); Lymphocytes Absolute Auto 0.37 K/mm3 (0.9-3.2); Lymphocytes Percent Auto 4.4 % (18.3-44.2); Mean Corpuscular HGB Conc 31.3 g/dl (32-36); Mean Corpuscular Hemoglobin 28.6 pg (26-34); Mean Corpuscular Volume 91.2 fl (80-100); Mean Platelet Volume 10.5 fl (7.4-10.4); Monocytes Absolute Auto 0.8 K/mm3 (0.1-0.6); Monocytes Percent Auto 10.1 % (2.6-8.5); Neutrophils Absolute Auto 7.1 K/mm3 (1.3-6.7); Neutrophils Percent Auto 84.7 % (45.5-73.1); Platelet Count Result 147 k/mm3 (150-375); Red Blood Count 3.64 M/mm3 (4.2-5.4); Red Cell Distribution Width 14.1 % (11.5-14.5); White Blood Count 8.3 K/mm3 (4.5-10.0)
[2022-03-28 04:53] LABS: Alanine Aminotransferase 59 U/L (6-35); Albumin Level 3.3 g/dL (3.5-5.1); Alkaline Phosphatase 182 U/L (38-126); Anion Gap 11 mmol/L (8-16); Aspartate Amino Transferase 47 U/L (14-36); Bilirubin,Total 1.3 mg/dL (0.2-1.3); Blood Urea Nitrogen 33 mg/dL (7-17); Calcium 8.2 mg/dL (8.4-10.2); Carbon Dioxide 25 mmol/L (22-30); Chloride 103 mmol/L (98-107); Estimated CRCL calculation 29 ml/min; Estimated Glomerular Filt Rate 48; Glucose 156 mg/dL (65-110); Potassium 3.8 mmol/L (3.4-5.0); Sodium 139 mmol/L (137-145)
[2022-03-28] MEDS: LEVOTHYROXINE SODIUM 125 MCG TABLET PO (04:53)
[2022-03-28 08:16] LABS: Glucose Point of Care 191 mg/dl (65-105)
[2022-03-28] MEDS: FLUoxetine HCL 10 MG CAPSULE PO (09:40)
[2022-03-28] MEDS: APIXABAN 2.5 MG TABLET PO ×2 (09:41→17:45)
[2022-03-28] MEDS: ATORVASTATIN 40 MG TABLET 80 MG PO (09:41)
[2022-03-28] MEDS: ASPIRIN 81 MG CHEWABLE TABLET PO (09:41)
--- NOTE | 2022-03-28 09:47 | PM.CNGS ---
Assessment and Plan Assessment and plan (1) Cholecystitis: Code(s): K81.9 - Cholecystitis, unspecified Status: Acute Assessment and Plan: The patient has been experiencing intermittent nausea for about a month. Over the past few days, she feels the symptoms have gotten worse and additionally had diarrhea and vomiting. Her nausea and vomiting seems to be improving with the current treatment. Some of her symptoms could be related to gallbladder issues, but there are also other possible etiologies. Her right upper quadrant ultrasound shows gallbladder sludge and mild gallbladder wall thickening. She also has mildly elevated LFTs and signs of cirrhosis on ultrasound. Will further evaluate for cystic duct patency with a HIDA scan. She is currently on oral anticoagulation and has multiple comorbidities that would put her at higher risk for surgery and general anesthesia. If the cystic duct is patent, then we could start slowly advancing her diet as tolerated and continue to treat this conservatively. Will keep her NPO and await HIDA results. (2) Transaminitis: Code(s): R74.01 - Elevation of levels of liver transaminase levels Status: Acute Assessment and Plan: Mildly elevated LFTs. Hepatitis panel negative. Could be caused by cholecystitis, which we are further investigating. See plan above. Trend labs. (3) Acute UTI: Code(s): N39.0 - Urinary tract infection, site not specified Status: Acute Assessment and Plan: Continue IV antibiotics. Urine culture pending. (4) PRANAY (acute kidney injury): Code(s): N17.9 - Acute kidney failure, unspecified Status: Acute Assessment and Plan: Improving. Creatinine coming down with IV fluid hydration. (5) Vomiting and diarrhea: Code(s): R11.10 - Vomiting, unspecified; R19.7 - Diarrhea, unspecified Status: Acute (6) Paroxysmal atrial fibrillation: Code(s): I48.0 - Paroxysmal atrial fibrillation Status: Acute (7) Chronic anticoagulation: Code(s): Z79.01 - retirement (current) use of anticoagulants Status: Acute Assessment and Plan: Currently on Eliquis for her paroxysmal atrial fibrillation. Would need to hold her anticoagulation if surgical intervention is needed. See plan above. (8) Cirrhosis: Code(s): K74.60 - Unspecified cirrhosis of liver Status: Acute Assessment and Plan: Signs of liver cirrhosis on ultrasound, which is a new finding for the patient. (9) Aortic valve stenosis: Code(s): I35.0 - Nonrheumatic aortic (valve) stenosis Status: Acute Assessment and Plan: Borderline mild aortic valve stenosis noted on an echo from March of 2022. (10) CHF (congestive heart failure): Code(s): I50.9 - Heart failure, unspecified Status: Acute Plan I have discussed the patient's case and plan of care with Dr. Ceballos. Thank you for allowing us to see the patient in consultation and we will continue to follow along with you. History of Present Illness Consult details Consult date: 03/28/22 Reason for consult: other (Possible acute cholecystitis) Requesting physician: Inna Ferguson DO Narrative: This is an 81-year-old woman with a history of paroxysmal atrial fibrillation on Eliquis, hypertension, mild aortic valve stenosis, CHF, and other medical problems, who was brought to the ER from [facility] 2 nights ago for evaluation of confusion and diarrhea. She was recently hospitalized between 03/14/2022 and 03/17/2022 for acute on chronic congestive heart failure and hypertensive urgency. She reports having issues with nausea for about a month. This comes and goes, and she cannot elaborate on any aggravating factors. She cannot tell if this is aggravated by eating. She reports a few episodes of vomiting, but again cannot elaborate on this. Over the past few days, she has developed confusion and overall felt unwell.
--- NOTE | 2022-03-28 11:22 | PM.IMPN ---
Progress Note: A&P Assessment and Plan (1) Urinary tract infection: Code(s): N39.0 - Urinary tract infection, site not specified Status: Acute Assessment and Plan: Zosyn started March 27 for UTI as well as possible cholecystitis, follow blood and urine cultures (2) Acute kidney injury: Code(s): N17.9 - Acute kidney failure, unspecified Status: Acute Assessment and Plan: creatinine was 1.3 with a BUN of 35 upon admission, after hydration, creatinine came down to 1.1, BUN essentially unchanged at 36, continue IV fluids and reassess in the morning (3) Sinus pause: Code(s): I45.5 - Other specified heart block Status: Acute Assessment and Plan: Sinus pause x2 in the emergency department, reportedly 2 to 3 seconds and 5 seconds. She was alert, oriented, and asymptomatic. At this time we will hold her beta-kika and admit to IMU for close monitoring. Upon review of telemetry strips, this pause cannot be found on any strips. Perhaps it was artifact, misread or lost. 03/28: Telemetry appears benign (4) Confusion: Code(s): R41.0 - Disorientation, unspecified Status: Acute Assessment and Plan: Patient reports mild confusion but she is alert and oriented. 03/27: Appears resolved, only lethargic (5) Transaminitis: Code(s): R74.01 - Elevation of levels of liver transaminase levels Status: Acute Assessment and Plan: Etiology unclear. Abdominal exam is benign. Check right upper quadrant ultrasound and hepatitis panel. Hold statin. 03/27: Ultrasound concerning for cholecystitis, General surgery consulted, patient NPO, some concern for possible cirrhosis as well 03/28: Appreciate general surgery consultation, keep patient NPO, check HIDA scan, LFTs slightly improved (6) Chronic heart failure with preserved ejection fraction: Code(s): I50.32 - Chronic diastolic (congestive) heart failure Status: Inactive Assessment and Plan: Clinically compensated but in fact she is a bit dry. Monitor volume status while judiciously hydrating. 03/27: Appears somewhat dehydrated, improving (7) Hyperglycemia: Code(s): R73.9 - Hyperglycemia, unspecified Status: Acute Assessment and Plan: Accu-Cheks plus sliding scale insulin, A1c is 7.7, fasting glucose was 184 this morning 03/28: well controlled, continue sliding scale insulin Subjective Date/time seen: 03/28/22 11:22 Review of Systems Review of Systems: ROS unobtainable: Yes unobtainable due to mental status Exam Narrative: General:??No acute distress, alert and oriented per baseline HEENT:? Atraumatic, normocephalic, mucous membranes moist CV:? Regular rate and rhythm, S1, S2 Lungs:? Clear to auscultation bilaterally, no rales or crackles noted, no wheezes, good air entry Abdomen:? Soft, nontender, nondistended Extremities:? Normal to inspection Skin:? No rashes noted, no lesions or wounds seen Psych:? Euthymic, normal affect Objective Data Vital Signs Vital Signs: Vital Signs - 24 hr 03/27/22 12:00 03/27/22 12:00 03/27/22 12:00 Temperature 99.2 F Pulse Rate 84 78 Respiratory Rate 12 Blood Pressure 156/90 H Pulse Oximetry 96 Oxygen Delivery Room Air 03/27/22 13:56 03/27/22 16:00 03/27/22 14:00 Temperature 97.4 F L Pulse Rate 106 H 82 Respiratory Rate 14 Blood Pressure 141/81 H Pulse Oximetry 96 99 Oxygen Delivery Room Air 03/27/22 16:00 03/27/22 18:00 03/27/22 16:00 Temperature Pulse Rate 88 85 Respiratory Rate Blood Pressure Pulse Oximetry Oxygen Delivery Room Air 03/27/22 20:00 03/27/22 20:00 03/27/22 20:00 Temperature 98.7 F Pulse Rate 84 88 88 Respiratory Rate 16 16 Blood Pressure 131/70 Pulse Oximetry 98 98 Oxygen Delivery Room Air 03/27/22 21:52 03/27/22 23:35 03/28/22 00:00 Temperature 98.6 F Pulse Rate 74 80 87 Respiratory
[2022-03-28 12:33] LABS: Glucose Point of Care 196 mg/dl (65-105)
[2022-03-28] MEDS: hydrALAZINE HCL 20 MG/ML VIAL 10 MG IV PUSH (15:23)
[2022-03-28 17:18] LABS: Glucose Point of Care 242 mg/dl (65-105)
[2022-03-28] MEDS: INSULIN ASPART (*BKC) 100 UNITS/ML SUB-Q (17:45)
[2022-03-28 20:29] LABS: Glucose Point of Care 188 mg/dl (65-105)
[2022-03-28] MEDS: DOXAZOSIN MESYLATE 2 MG TABLET PO (21:32)
[2022-03-29] VITALS (13 sets, daily range): BP systolic 148–181; BP diastolic 68–108; PULSE 86–114; RESP 18–28; TEMP 36.2–36.9; O2SAT 92–97
[2022-03-29] MEDS: hydrALAZINE HCL 20 MG/ML VIAL 10 MG IV PUSH (03:52)
[2022-03-29] MEDS: LEVOTHYROXINE SODIUM 125 MCG TABLET PO (03:53)
[2022-03-29 04:47] LABS: Basophils Percent Auto 0.3 % (0.2-1.2); Eosinophils Percent Auto 0.1 % (0-4.4); Hematocrit 31.8 % (37.0-47.0); Hemoglobin 10.2 g/dL (12.0-15.0); Immature Granulocyte Absolute 0.06 K/mm3 (0.00-0.031); Immature Granulocyte Percent A 0.8 % (0-0.5); Lymphocytes Absolute Auto 0.46 K/mm3 (0.9-3.2); Mean Corpuscular HGB Conc 32.1 g/dl (32-36); Mean Corpuscular Hemoglobin 28.5 pg (26-34); Mean Corpuscular Volume 88.8 fl (80-100); Mean Platelet Volume 10.7 fl (7.4-10.4); Monocytes Absolute Auto 0.9 K/mm3 (0.1-0.6); Neutrophils Absolute Auto 6.2 K/mm3 (1.3-6.7); Neutrophils Percent Auto 80.8 % (45.5-73.1); Platelet Count Result 143 k/mm3 (150-375); Red Blood Count 3.58 M/mm3 (4.2-5.4); Red Cell Distribution Width 13.8 % (11.5-14.5); White Blood Count 7.6 K/mm3 (4.5-10.0)
[2022-03-29 05:03] LABS: Alanine Aminotransferase 52 U/L (6-35); Albumin Level 3.1 g/dL (3.5-5.1); Alkaline Phosphatase 200 U/L (38-126); Anion Gap 9 mmol/L (8-16); Aspartate Amino Transferase 43 U/L (14-36); Bilirubin,Total 1.1 mg/dL (0.2-1.3); Blood Urea Nitrogen 25 mg/dL (7-17); Carbon Dioxide 23 mmol/L (22-30); Chloride 104 mmol/L (98-107); Estimated CRCL calculation 32 ml/min; Estimated Glomerular Filt Rate 53; Glucose 163 mg/dL (65-110); Potassium 3.4 mmol/L (3.4-5.0); Sodium 136 mmol/L (137-145)
[2022-03-29 08:26] LABS: Glucose Point of Care 176 mg/dl (65-105)
[2022-03-29] MEDS: ATORVASTATIN 40 MG TABLET 80 MG PO (09:48)
[2022-03-29] MEDS: ASPIRIN 81 MG CHEWABLE TABLET PO (09:48)
[2022-03-29] MEDS: FLUoxetine HCL 10 MG CAPSULE PO (09:49)
[2022-03-29] MEDS: APIXABAN 2.5 MG TABLET PO ×2 (09:49→17:44)
--- NOTE | 2022-03-29 12:40 | PM.IMPN ---
Progress Note: A&P Assessment and Plan (1) Urinary tract infection: Code(s): N39.0 - Urinary tract infection, site not specified Status: Acute Assessment and Plan: Zosyn started March 27 for UTI as well as possible cholecystitis, follow blood and urine cultures Bacteremia and UTI with Proteus mirabilis HIDA scan rules out acute cholecystitis Is switch antibiotic to ceftriaxone for further course (2) Acute kidney injury: Code(s): N17.9 - Acute kidney failure, unspecified Status: Acute Assessment and Plan: creatinine was 1.3 with a BUN of 35 upon admission, after hydration, creatinine came down to 1.1, BUN essentially unchanged at 36, continue IV fluids new function has recovered back to baseline (3) Sinus pause: Code(s): I45.5 - Other specified heart block Status: Acute Assessment and Plan: Sinus pause x2 in the emergency department, reportedly 2 to 3 seconds and 5 seconds. She was alert, oriented, and asymptomatic. At this time we will hold her beta-kika and admit to IMU for close monitoring. Upon review of telemetry strips, this pause cannot be found on any strips. Perhaps it was artifact, misread or lost. 03/28: Telemetry appears benign (4) Confusion: Code(s): R41.0 - Disorientation, unspecified Status: Acute Assessment and Plan: Patient reports mild confusion but she is alert and oriented. CT head with no acute intracranial process (5) Transaminitis: Code(s): R74.01 - Elevation of levels of liver transaminase levels Status: Acute Assessment and Plan: Etiology unclear. Abdominal exam is benign. Check right upper quadrant ultrasound and hepatitis panel. Hold statin. 03/27: Ultrasound concerning for cholecystitis, General surgery consulted, patient NPO, some concern for possible cirrhosis as well 03/28: Appreciate general surgery consultation, keep patient NPO, check HIDA scan, LFTs slightly improved 03/29 HIDA scan is negative LFTs mildly elevated ultrasound and CT with cirrhotic changes. Likely pericholecystic fluid related to underlying cirrhosis which is a new diagnosis for her. (6) Chronic heart failure with preserved ejection fraction: Code(s): I50.32 - Chronic diastolic (congestive) heart failure Status: Inactive Assessment and Plan: Clinically compensated but in fact she is a bit dry. Monitor volume status while judiciously hydrating. Will slowly taper down her fluid 03/27: Appears somewhat dehydrated, improving (7) Hyperglycemia: Code(s): R73.9 - Hyperglycemia, unspecified Status: Acute Assessment and Plan: Accu-Cheks plus sliding scale insulin, A1c is 7.7, fasting glucose was 184 this morning 03/28: well controlled, continue sliding scale insulin Plan Cirrhosis no reported history of alcohol use. Was underlying diabetes type 2 and P is mildly elevated. CT abdomen and ultrasound was today acute changes noted. 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 Related. Hepatitis profile negative, mild thrombocytopenia no coagulopathy noted albumin level at 3.1. Ammonia level negative Needs follow-up with hepatology as an outpatient basis Subjective Date/time seen: 03/29/22 12:40 Interval history: 03/29/2022 no overnight events. Patient denies any new complaints. Having diarrhea and belly is sore she states. She remains afebrile and denies any chest pain shortness for breath no nausea or vomiting Review of Systems Review of Systems: All systems reviewed & are unremarkable except as noted in HPI and below Exam Narrative: General:??No acute distress, alert and oriented per baseline HEENT:? Atraumatic, normocephalic, mucous membranes moist CV:? Regular rate and rhythm, S1, S2 Lungs:? Clear to auscultation bilaterally, no rales or crackles noted, no wheezes, good air entry Abdomen:? Soft, nontender, nondistended Extremities:? Normal to i
[2022-03-29] MEDS: INSULIN ASPART (*BKC) 100 UNITS/ML SUB-Q (12:55)
[2022-03-29 12:56] LABS: Glucose Point of Care 248 mg/dl (65-105)
[2022-03-29] MEDS: cefTRIAXone 2 GM in SODIUM CHLORIDE 0.9% IV 100 ML 200 ML IVPB (14:23)
[2022-03-29 16:59] LABS: Glucose Point of Care 129 mg/dl (65-105)
[2022-03-29 20:37] LABS: Glucose Point of Care 258 mg/dl (65-105)
[2022-03-29] MEDS: DOXAZOSIN MESYLATE 2 MG TABLET PO (20:39)
[2022-03-30] VITALS (10 sets, daily range): BP systolic 108–184; BP diastolic 71–93; PULSE 82–119; RESP 12–18; TEMP 36.2–37.3; O2SAT 93–97
[2022-03-30] MEDS: LEVOTHYROXINE SODIUM 125 MCG TABLET PO (04:24)
[2022-03-30 05:31] LABS: Basophils Percent Auto 0.1 % (0.2-1.2); Eosinophils Percent Auto 0.6 % (0-4.4); Hematocrit 33.4 % (37.0-47.0); Hemoglobin 10.4 g/dL (12.0-15.0); Immature Granulocyte Absolute 0.06 K/mm3 (0.00-0.031); Immature Granulocyte Percent A 0.9 % (0-0.5); Lymphocytes Absolute Auto 0.65 K/mm3 (0.9-3.2); Lymphocytes Percent Auto 9.3 % (18.3-44.2); Mean Corpuscular HGB Conc 31.1 g/dl (32-36); Mean Corpuscular Hemoglobin 28.3 pg (26-34); Mean Corpuscular Volume 90.8 fl (80-100); Mean Platelet Volume 10.6 fl (7.4-10.4); Monocytes Percent Auto 14.7 % (2.6-8.5); Neutrophils Absolute Auto 5.2 K/mm3 (1.3-6.7); Neutrophils Percent Auto 74.4 % (45.5-73.1); Platelet Count Result 145 k/mm3 (150-375); Red Blood Count 3.68 M/mm3 (4.2-5.4); Red Cell Distribution Width 13.9 % (11.5-14.5)
[2022-03-30 05:41] LABS: Alanine Aminotransferase 43 U/L (6-35); Albumin Level 3.1 g/dL (3.5-5.1); Alkaline Phosphatase 180 U/L (38-126); Anion Gap 8 mmol/L (8-16); Aspartate Amino Transferase 35 U/L (14-36); Bilirubin,Total 0.7 mg/dL (0.2-1.3); Blood Urea Nitrogen 20 mg/dL (7-17); Calcium 8.2 mg/dL (8.4-10.2); Carbon Dioxide 25 mmol/L (22-30); Chloride 103 mmol/L (98-107); Estimated CRCL calculation 35 ml/min; Estimated Glomerular Filt Rate 60; Glucose 120 mg/dL (65-110); Potassium 3.3 mmol/L (3.4-5.0); Sodium 136 mmol/L (137-145)
[2022-03-30 08:41] LABS: Glucose Point of Care 129 mg/dl (65-105)
[2022-03-30] MEDS: POTASSIUM CHLORIDE 20 MEQ TABLET 40 MEQ PO (08:53)
[2022-03-30] MEDS: FLUoxetine HCL 10 MG CAPSULE PO (08:54)
[2022-03-30] MEDS: APIXABAN 2.5 MG TABLET PO ×2 (08:54→16:44)
[2022-03-30] MEDS: ATORVASTATIN 40 MG TABLET 80 MG PO (08:54)
[2022-03-30] MEDS: ASPIRIN 81 MG CHEWABLE TABLET PO (08:54)
--- NOTE | 2022-03-30 11:28 | PCNFU ---
Nutrition Follow-Up Complete: inadequate energy intake related to diet order as evidenced by NPO status Goal: Meet nutritional needs Patient is progressing towards goal. We will continue current goal. Pt current nutrition is Soft and Bite Sized, Level 6/DBCC. Last recorded weight is 60 kg, stable Bowel Motility:+Bm reported 03/29 Labs Reviewed:Glu 120, Na 136, K 3.3,BUN 20, Hct 33.4,Hgb 10.4 Meds Noted:NovoLog, Eliquis, Prozac Skin: WNL Additional Notes: Patient seen today for nutrition follow up. Oral Intake has improved, up to 75%. Spoke with MD today for diet order changes, DBCC with diet supplement of Glucerna shakes BID. Last HgbA1c 7.7%. Agree with diet orders. Monitor for diet order, intake, wt, labs. Follow up in 5 days.
[2022-03-30] MEDS: cefTRIAXone 2 GM in SODIUM CHLORIDE 0.9% IV 100 ML 200 ML IVPB (12:02)
[2022-03-30] MEDS: INSULIN ASPART (*BKC) 100 UNITS/ML SUB-Q ×2 (12:15→16:44)
[2022-03-30 12:19] LABS: Glucose Point of Care 285 mg/dl (65-105)
[2022-03-30 16:22] LABS: Glucose Point of Care 222 mg/dl (65-105)
--- NOTE | 2022-03-30 16:48 | PM.IMPN ---
Progress Note: A&P Assessment and Plan (1) Urinary tract infection: Code(s): N39.0 - Urinary tract infection, site not specified Status: Acute Assessment and Plan: Zosyn started March 27 for UTI as well as possible cholecystitis, follow blood and urine cultures Bacteremia and UTI with Proteus mirabilis HIDA scan rules out acute cholecystitis Is switch antibiotic to ceftriaxone for further course . Discussed with ID formal cyst. For further completion of the course will switch to Levaquin at discharge (2) Acute kidney injury: Code(s): N17.9 - Acute kidney failure, unspecified Status: Acute Assessment and Plan: creatinine was 1.3 with a BUN of 35 upon admission, after hydration, creatinine came down to 1.1, BUN essentially unchanged at 36, continue IV fluids new function has recovered back to baseline (3) Sinus pause: Code(s): I45.5 - Other specified heart block Status: Acute Assessment and Plan: Sinus pause x2 in the emergency department, reportedly 2 to 3 seconds and 5 seconds. She was alert, oriented, and asymptomatic. At this time we will hold her beta-kika and admit to IMU for close monitoring. Upon review of telemetry strips, this pause cannot be found on any strips. Perhaps it was artifact, misread or lost. 03/28: Telemetry appears benign (4) Confusion: Code(s): R41.0 - Disorientation, unspecified Status: Acute Assessment and Plan: Patient reports mild confusion but she is alert and oriented. CT head with no acute intracranial process (5) Transaminitis: Code(s): R74.01 - Elevation of levels of liver transaminase levels Status: Acute Assessment and Plan: Etiology unclear. Abdominal exam is benign. Check right upper quadrant ultrasound and hepatitis panel. Hold statin. 03/27: Ultrasound concerning for cholecystitis, General surgery consulted, patient NPO, some concern for possible cirrhosis as well 03/28: Appreciate general surgery consultation, keep patient NPO, check HIDA scan, LFTs slightly improved 03/29 HIDA scan is negative LFTs mildly elevated ultrasound and CT with cirrhotic changes. Likely pericholecystic fluid related to underlying cirrhosis which is a new diagnosis for her. (6) Chronic heart failure with preserved ejection fraction: Code(s): I50.32 - Chronic diastolic (congestive) heart failure Status: Inactive Assessment and Plan: Clinically compensated but in fact she is a bit dry. Monitor volume status while judiciously hydrating. Will slowly taper down her fluid 03/27: Appears somewhat dehydrated, improving (7) Hyperglycemia: Code(s): R73.9 - Hyperglycemia, unspecified Status: Acute Assessment and Plan: Accu-Cheks plus sliding scale insulin, A1c is 7.7, fasting glucose was 184 this morning 03/28: well controlled, continue sliding scale insulin Plan Cirrhosis no reported history of alcohol use. Was underlying diabetes type 2 and P is mildly elevated. CT abdomen and ultrasound was today acute changes noted. 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 Related. Hepatitis profile negative, mild thrombocytopenia no coagulopathy noted albumin level at 3.1. Ammonia level negative Needs follow-up with hepatology as an outpatient basis Subjective Date/time seen: 03/30/22 16:48 Interval history: 03/29/2022 no overnight events. Patient denies any new complaints. Having diarrhea and belly is sore she states. She remains afebrile and denies any chest pain shortness for breath no nausea or vomiting 03/30/2022 feeling much better. Denies any pain shortness a breath or chest pain. Eating well. She is from [facility]. Review of Systems Review of Systems: All systems reviewed & are unremarkable except as noted in HPI and below Exam Narrative: General:??No acute distress, alert and oriented per baseline HEENT:? Atraumatic, no
[2022-03-30 20:12] LABS: Glucose Point of Care 156 mg/dl (65-105)
[2022-03-30] MEDS: DOXAZOSIN MESYLATE 2 MG TABLET PO (20:25)
[2022-03-31] VITALS (12 sets, daily range): BP systolic 74–184; BP diastolic 52–108; PULSE 68–165; RESP 16–24; TEMP 36.1–36.8; O2SAT 79–100
[2022-03-31 05:33] LABS: Basophils Percent Auto 0.4 % (0.2-1.2); Eosinophils Absolute Auto 0.1 K/mm3 (0-0.3); Eosinophils Percent Auto 0.7 % (0-4.4); Hematocrit 32.9 % (37.0-47.0); Hemoglobin 10.4 g/dL (12.0-15.0); Immature Granulocyte Absolute 0.08 K/mm3 (0.00-0.031); Lymphocytes Absolute Auto 0.69 K/mm3 (0.9-3.2); Lymphocytes Percent Auto 8.2 % (18.3-44.2); Mean Corpuscular HGB Conc 31.6 g/dl (32-36); Mean Corpuscular Hemoglobin 28.3 pg (26-34); Mean Corpuscular Volume 89.6 fl (80-100); Mean Platelet Volume 10.5 fl (7.4-10.4); Monocytes Absolute Auto 1.1 K/mm3 (0.1-0.6); Monocytes Percent Auto 12.6 % (2.6-8.5); Neutrophils Absolute Auto 6.5 K/mm3 (1.3-6.7); Neutrophils Percent Auto 77.1 % (45.5-73.1); Platelet Count Result 162 k/mm3 (150-375); Red Blood Count 3.67 M/mm3 (4.2-5.4); Red Cell Distribution Width 13.7 % (11.5-14.5); White Blood Count 8.4 K/mm3 (4.5-10.0)
[2022-03-31] MEDS: LEVOTHYROXINE SODIUM 125 MCG TABLET PO (05:37)
[2022-03-31 05:44] LABS: Alanine Aminotransferase 38 U/L (6-35); Albumin Level 3.2 g/dL (3.5-5.1); Alkaline Phosphatase 171 U/L (38-126); Anion Gap 9 mmol/L (8-16); Aspartate Amino Transferase 33 U/L (14-36); Bilirubin,Total 0.6 mg/dL (0.2-1.3); Blood Urea Nitrogen 15 mg/dL (7-17); Carbon Dioxide 24 mmol/L (22-30); Chloride 104 mmol/L (98-107); Estimated CRCL calculation 35 ml/min; Estimated Glomerular Filt Rate 60; Glucose 117 mg/dL (65-110); Magnesium 1.9 mg/dL (1.6-2.3); Potassium 3.5 mmol/L (3.4-5.0); Sodium 137 mmol/L (137-145)
[2022-03-31 08:13] LABS: Glucose Point of Care 155 mg/dl (65-105)
[2022-03-31] MEDS: FLUoxetine HCL 10 MG CAPSULE PO (09:14)
[2022-03-31] MEDS: ASPIRIN 81 MG CHEWABLE TABLET PO (09:14)
[2022-03-31] MEDS: ATORVASTATIN 40 MG TABLET 80 MG PO (09:14)
[2022-03-31] MEDS: APIXABAN 2.5 MG TABLET PO ×2 (09:14→18:42)
--- NOTE | 2022-03-31 09:29 | ECG_ITS ---
Measurements Intervals [place] Rate: 147 P: MI: 0 QRS: 35 QRSD: 79 T: 0 QT: 261 QTc: 409 Interpretive Statements ATRIAL FIBRILLATION WITH RAPID VENTRICULAR RESPONSE VENTRICULAR PREMATURE COMPLEX ST-T WAVE ABNORMALITY IN LATERAL LEADS- CONSIDER ISCHEMIA BASELINE ARTIFACT- V4-V6 ABNORMAL ECG Electronically Signed On 03-31-2022 9:48:55 CDT by Kodi Gan D.O.
[2022-03-31] MEDS: DIGOXIN INJ 250 MCG/ML 2 ML AMP (*BKC) 125 MCG IV PUSH (09:32)
[2022-03-31] MEDS: ONDANSETRON INJ 4 MG/2 ML VIAL IV PUSH (09:40)
[2022-03-31] MEDS: METOPROLOL TARTRATE INJ 5 MG/5 ML VIAL IV PUSH (10:08)
[2022-03-31] MEDS: METOPROLOL SUCCINATE EXT REL 100 MG TABCR PO (10:19)
[2022-03-31] MEDS: LOSARTAN POTASSIUM 100 MG TABLET PO (10:19)
[2022-03-31 12:33] LABS: Glucose Point of Care 286 mg/dl (65-105)
[2022-03-31] MEDS: cefTRIAXone 2 GM in SODIUM CHLORIDE 0.9% IV 100 ML 200 ML IVPB (12:53)
[2022-03-31] MEDS: INSULIN ASPART (*BKC) 100 UNITS/ML SUB-Q (12:55)
[2022-03-31 16:05] LABS: Glucose Point of Care 165 mg/dl (65-105)
--- NOTE | 2022-03-31 16:19 | PM.IMPN ---
Progress Note: A&P Assessment and Plan (1) Urinary tract infection: Code(s): N39.0 - Urinary tract infection, site not specified Status: Acute Assessment and Plan: Zosyn started March 27 for UTI as well as possible cholecystitis, follow blood and urine cultures Bacteremia and UTI with Proteus mirabilis HIDA scan rules out acute cholecystitis Is switch antibiotic to ceftriaxone for further course . Discussed with ID pharmacist. For further completion of the course will switch to Levaquin at discharge (2) Acute kidney injury: Code(s): N17.9 - Acute kidney failure, unspecified Status: Acute Assessment and Plan: creatinine was 1.3 with a BUN of 35 upon admission, after hydration, creatinine came down to 1.1, BUN essentially unchanged at 36, continue IV fluids new function has recovered back to baseline (3) Sinus pause: Code(s): I45.5 - Other specified heart block Status: Acute Assessment and Plan: Sinus pause x2 in the emergency department, reportedly 2 to 3 seconds and 5 seconds. She was alert, oriented, and asymptomatic. At this time we will hold her beta-kika and admit to IMU for close monitoring. Upon review of telemetry strips, this pause cannot be found on any strips. Perhaps it was artifact, misread or lost. 03/28: Telemetry appears benign 03/31 AFib with RVR noted. Restarted on metoprolol which improved however led to hypotension which is and manage with bolus she critical care time 30 minutes (4) Confusion: Code(s): R41.0 - Disorientation, unspecified Status: Acute Assessment and Plan: Patient reports mild confusion but she is alert and oriented. CT head with no acute intracranial process (5) Transaminitis: Code(s): R74.01 - Elevation of levels of liver transaminase levels Status: Acute Assessment and Plan: Etiology unclear. Abdominal exam is benign. Check right upper quadrant ultrasound and hepatitis panel. Hold statin. 03/27: Ultrasound concerning for cholecystitis, General surgery consulted, patient NPO, some concern for possible cirrhosis as well 03/28: Appreciate general surgery consultation, keep patient NPO, check HIDA scan, LFTs slightly improved 03/29 HIDA scan is negative LFTs mildly elevated ultrasound and CT with cirrhotic changes. Likely pericholecystic fluid related to underlying cirrhosis which is a new diagnosis for her. (6) Chronic heart failure with preserved ejection fraction: Code(s): I50.32 - Chronic diastolic (congestive) heart failure Status: Inactive Assessment and Plan: Clinically compensated but in fact she is a bit dry. Monitor volume status while judiciously hydrating. Will slowly taper down her fluid 03/27: Appears somewhat dehydrated, improving Mild hypoxia needed. Will check chest x-ray (7) Hyperglycemia: Code(s): R73.9 - Hyperglycemia, unspecified Status: Acute Assessment and Plan: Accu-Cheks plus sliding scale insulin, A1c is 7.7, fasting glucose was 184 this morning 03/28: well controlled, continue sliding scale insulin Plan Cirrhosis no reported history of alcohol use. Was underlying diabetes type 2 and P is mildly elevated. CT abdomen and ultrasound was today acute changes noted. 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 Related. Hepatitis profile negative, mild thrombocytopenia no coagulopathy noted albumin level at 3.1. Ammonia level negative Needs follow-up with hepatology as an outpatient basis Time Spent With Patient Time: Critical care time 30 minutes Subjective Date/time seen: 03/31/22 16:19 Interval history: 03/29/2022 no overnight events. Patient denies any new complaints. Having diarrhea and belly is sore she states. She remains afebrile and denies any chest pain shortness for breath no nausea or vomiting 03/30/2022 feeling much better. Denies any pain shortness a breath or chest pain.
[2022-03-31] MEDS: SODIUM CHLORIDE 0.9% IV 500 ML 999 ML (17:49)
[2022-03-31 18:25] LABS: Alveolar/Arterial O2 Gradient 64.2 mmHg; Base Excess ABG -2.4 mEq/l (+/-2.0); Fractional Inspired Oxygen 36 %; HCO3 ABG 22.2 mEq/l (22.0-26.0); Oxygen Content ABG 15.1 %vol (16.0-22.0); Oxygen Saturation ABG 98.9 % (95.0-100.0); Oxyhemoglobin 97.2 % THb (90.0-100.0); PCO2 ABG 37.3 mmHg (35.0-45.0); PO2 ABG 149.2 mmHg (80.0-100.0); PO2 FiO2 Ratio Arterial Blood 4.14 %; Total Hemoglobin 10.8 g/dL (12.0-18.0); pH ABG 7.392 (7.350-7.450)
[2022-03-31 18:26] LABS: Device NASAL CANNULA; Modified Allen's Test Pass; Site Drawn LEFT RADIAL
[2022-03-31 20:02] LABS: Glucose Point of Care 190 mg/dl (65-105)
[2022-03-31] MEDS: DOXAZOSIN MESYLATE 2 MG TABLET PO (20:58)
[2022-04-01] VITALS (12 sets, daily range): BP systolic 122–162; BP diastolic 60–80; PULSE 51–83; RESP 16–21; TEMP 36.1–37.2; O2SAT 99–100
[2022-04-01 04:47] LABS: Basophils Percent Auto 0.2 % (0.2-1.2); Eosinophils Percent Auto 0.2 % (0-4.4); Hematocrit 30.9 % (37.0-47.0); Hemoglobin 9.6 g/dL (12.0-15.0); Immature Granulocyte Absolute 0.13 K/mm3 (0.00-0.031); Immature Granulocyte Percent A 0.8 % (0-0.5); Lymphocytes Absolute Auto 1.06 K/mm3 (0.9-3.2); Lymphocytes Percent Auto 6.3 % (18.3-44.2); Mean Corpuscular HGB Conc 31.1 g/dl (32-36); Mean Corpuscular Hemoglobin 28.4 pg (26-34); Mean Corpuscular Volume 91.4 fl (80-100); Mean Platelet Volume 10.4 fl (7.4-10.4); Monocytes Absolute Auto 1.3 K/mm3 (0.1-0.6); Monocytes Percent Auto 7.8 % (2.6-8.5); Neutrophils Absolute Auto 14.2 K/mm3 (1.3-6.7); Neutrophils Percent Auto 84.7 % (45.5-73.1); Platelet Count Result 156 k/mm3 (150-375); Red Blood Count 3.38 M/mm3 (4.2-5.4); Red Cell Distribution Width 13.8 % (11.5-14.5); White Blood Count 16.8 K/mm3 (4.5-10.0)
[2022-04-01 04:57] LABS: Alanine Aminotransferase 32 U/L (6-35); Albumin Level 2.8 g/dL (3.5-5.1); Alkaline Phosphatase 152 U/L (38-126); Anion Gap 9 mmol/L (8-16); Aspartate Amino Transferase 29 U/L (14-36); Bilirubin,Total 0.4 mg/dL (0.2-1.3); Blood Urea Nitrogen 17 mg/dL (7-17); Calcium 8.2 mg/dL (8.4-10.2); Carbon Dioxide 25 mmol/L (22-30); Chloride 104 mmol/L (98-107); Estimated CRCL calculation 19 ml/min; Estimated Glomerular Filt Rate 33; Glucose 88 mg/dL (65-110); Potassium 3.9 mmol/L (3.4-5.0); Sodium 138 mmol/L (137-145)
[2022-04-01] MEDS: LEVOTHYROXINE SODIUM 125 MCG TABLET PO (05:35)
[2022-04-01 08:44] LABS: Glucose Point of Care 100 mg/dl (65-105)
[2022-04-01] MEDS: ASPIRIN 81 MG CHEWABLE TABLET PO (08:45)
[2022-04-01] MEDS: FLUoxetine HCL 10 MG CAPSULE PO (08:45)
[2022-04-01] MEDS: METOPROLOL SUCCINATE EXT REL 100 MG TABCR PO (08:46)
[2022-04-01] MEDS: APIXABAN 2.5 MG TABLET PO ×2 (08:46→16:38)
[2022-04-01] MEDS: ATORVASTATIN 40 MG TABLET 80 MG PO (08:46)
[2022-04-01 11:16] LABS: Glucose Point of Care 247 mg/dl (65-105)
[2022-04-01 11:41] LABS: Appearance Urine Slightly Cloudy (Clear); Bilirubin Urine Negative (Negative); Color Urine Yellow (Yellow); Glucose Urine UA Negative (Negative); Ketones Urine Negative (Negative); Leukocyte Esterase Ur Negative LEU/UL (NEGATIVE); Nitrate Urine Negative (Negative); Protein Urine 3+ mg/dL (Negative); Urobilinogen Urine 0.2 mg/dL (<2.0)
[2022-04-01] MEDS: cefTRIAXone 2 GM in SODIUM CHLORIDE 0.9% IV 100 ML 200 ML IVPB (11:43)
[2022-04-01 11:50] LABS: Mucus Urine Rare /lpf; Squamous Epithelial Cell Urine Rare /hpf (Few)
[2022-04-01 12:00] LABS: Add Urine Microscopic? YES; Blood Urine Trace-Intact (Negative)
--- NOTE | 2022-04-01 12:45 | PM.IMPN ---
Progress Note: A&P Assessment and Plan (1) Urinary tract infection: Code(s): N39.0 - Urinary tract infection, site not specified Status: Acute (2) Acute kidney injury: Code(s): N17.9 - Acute kidney failure, unspecified Status: Acute (3) Sinus pause: Code(s): I45.5 - Other specified heart block Status: Acute (4) Confusion: Code(s): R41.0 - Disorientation, unspecified Status: Acute (5) Transaminitis: Code(s): R74.01 - Elevation of levels of liver transaminase levels Status: Acute (6) Chronic heart failure with preserved ejection fraction: Code(s): I50.32 - Chronic diastolic (congestive) heart failure Status: Inactive (7) Hyperglycemia: Code(s): R73.9 - Hyperglycemia, unspecified Status: Acute Plan # UTI Zosyn started March 27 for UTI as was possible cholecystitis, follow blood and urine culture # Bacteremia and UTI with Proteus mirabilis # possible cholecystitis HIDA scan rule out acute cholecystitis. Switched antibiotic to ceftriaxone for further course. Plan to complete the course with Levaquin at discharge # PRANAY creatinine 1.3 with BUN of 35 and a button admission. After hydration creatinine down to 1.1 and back to baseline however bumped up to 1.5 this morning. Likely due to hypotension yesterday. Will recheck and monitor this evening. With blood pressure improved should resolve without issue. # Sinus pause x2 in the ED reportedly 2-3 second in [facility]. Asymptomatic. Her beta-kika was on hold however since she went into AFib with RVR 03/31/2022 this was resumed. She had more recurrence of sinus pauses in the night 03/31/2022. Will monitor and lower beta-kika if needed # AFib with RVR 03/31/2022 resumed metoprolol with improvement # acute encephalopathy has mild confusion CT head with no acute intracranial process # transaminitis: Etiology unclear abdominal exam is benign check right upper quadrant ultrasound hepatitis panel. Held statin. Ultrasound concerning for cholecystitis. General surgery consulted. HIDA scan is negative for cholecystitis. CT and ultrasound with cirrhotic changes in the liver likely pericholecystic free fluid related to underlying cirrhosis which is a new diagnosis for her. Has underlying diabetes type 2 and no history of alcohol use. 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 Hepatitis profile is negative mild thrombocytopenia no coagulopathy. Noted albumin level of 3.1. Ammonia level is negative. Needs follow-up with hepatology as an outpatient basis # chronic diastolic congestive heart failure clinically well compensated. Monitor volume status. # mild hypoxia needing few L of oxygen via nasal cannula. Chest x-ray with improving pulmonary edema compared to admission. Continue to monitor # type 2 diabetes mellitus A1c is 7.7 continue sliding scale insulin # DVT prophylaxis on apixaban # code status full code Subjective Date/time seen: 04/01/22 12:45 Interval history: 03/29/2022 no overnight events.? Patient denies any new complaints.? Having diarrhea and belly is sore she states.? She remains afebrile and denies any chest pain shortness for breath no nausea or vomiting ?03/30/2022 feeling much better.? Denies any pain shortness a breath or chest pain.? Eating well.? She is from [facility]. 03/31/2022 overnight she was noted to be tachycardic.? EKG showed atrial fibrillation with the rapid ventricular rate.? She was given her metoprolol and IV metoprolol 1 does as well as her losartan that was restarted.? She was hypotensive later this afternoon.? For which a bolus was given.? She is a bit lethargic but alert and oriented x3.? Heart rate was controlled with above intervention. 04/01/2022 events from yesterday reviewed she is more alert in awake. Blood pressure is improved. Denies any new complaints. Denies shortness of breath. Cough is always been there. Denies any urinar
[2022-04-01 16:33] LABS: Glucose Point of Care 133 mg/dl (65-105)
--- NOTE | 2022-04-01 17:01 | PC.NURSE ---
This patient, Moriah Grace, was received from [ IMU] on 04/01/22 at 1701. Patient/family oriented to unit policies and routines
[2022-04-01 17:36] LABS: Anion Gap 10 mmol/L (8-16); Blood Urea Nitrogen 21 mg/dL (7-17); Calcium 7.9 mg/dL (8.4-10.2); Carbon Dioxide 26 mmol/L (22-30); Chloride 101 mmol/L (98-107); Estimated CRCL calculation 19 ml/min; Estimated Glomerular Filt Rate 33; Glucose 134 mg/dL (65-110); Potassium 3.7 mmol/L (3.4-5.0); Sodium 137 mmol/L (137-145)
[2022-04-01 20:26] LABS: Glucose Point of Care 133 mg/dl (65-105)
[2022-04-01] MEDS: DOXAZOSIN MESYLATE 2 MG TABLET PO (20:31)
[2022-04-02] VITALS (12 sets, daily range): BP systolic 128–153; BP diastolic 58–69; PULSE 55–100; RESP 16–21; TEMP 36.3–36.6; O2SAT 90–100
[2022-04-02 05:33] LABS: Basophils Percent Auto 0.3 % (0.2-1.2); Eosinophils Absolute Auto 0.1 K/mm3 (0-0.3); Hematocrit 30.8 % (37.0-47.0); Hemoglobin 9.4 g/dL (12.0-15.0); Immature Granulocyte Absolute 0.16 K/mm3 (0.00-0.031); Immature Granulocyte Percent A 1.4 % (0-0.5); Lymphocytes Absolute Auto 1.06 K/mm3 (0.9-3.2); Mean Corpuscular HGB Conc 30.5 g/dl (32-36); Mean Corpuscular Hemoglobin 28.7 pg (26-34); Mean Corpuscular Volume 93.9 fl (80-100); Mean Platelet Volume 10.3 fl (7.4-10.4); Monocytes Percent Auto 8.8 % (2.6-8.5); Neutrophils Absolute Auto 9.4 K/mm3 (1.3-6.7); Neutrophils Percent Auto 79.5 % (45.5-73.1); Platelet Count Result 186 k/mm3 (150-375); Red Blood Count 3.28 M/mm3 (4.2-5.4); Red Cell Distribution Width 13.9 % (11.5-14.5); White Blood Count 11.8 K/mm3 (4.5-10.0)
[2022-04-02 05:49] LABS: Alanine Aminotransferase 35 U/L (6-35); Albumin Level 2.9 g/dL (3.5-5.1); Alkaline Phosphatase 143 U/L (38-126); Anion Gap 8 mmol/L (8-16); Aspartate Amino Transferase 34 U/L (14-36); Bilirubin,Total 0.3 mg/dL (0.2-1.3); Blood Urea Nitrogen 22 mg/dL (7-17); Calcium 7.6 mg/dL (8.4-10.2); Carbon Dioxide 25 mmol/L (22-30); Chloride 106 mmol/L (98-107); Estimated CRCL calculation 20 ml/min; Estimated Glomerular Filt Rate 36; Glucose 123 mg/dL (65-110); Magnesium 1.9 mg/dL (1.6-2.3); Potassium 3.9 mmol/L (3.4-5.0); Sodium 139 mmol/L (137-145)
[2022-04-02] MEDS: LEVOTHYROXINE SODIUM 125 MCG TABLET PO (06:10)
[2022-04-02 07:47] LABS: Glucose Point of Care 107 mg/dl (65-105)
[2022-04-02] MEDS: METOPROLOL SUCCINATE EXT REL 100 MG TABCR PO (08:50)
[2022-04-02] MEDS: APIXABAN 2.5 MG TABLET PO ×2 (08:50→16:41)
[2022-04-02] MEDS: ASPIRIN 81 MG CHEWABLE TABLET PO (08:50)
[2022-04-02] MEDS: FLUoxetine HCL 10 MG CAPSULE PO (08:50)
[2022-04-02] MEDS: ATORVASTATIN 40 MG TABLET 80 MG PO (08:50)
[2022-04-02 11:30] LABS: Glucose Point of Care 205 mg/dl (65-105)
--- NOTE | 2022-04-02 12:30 | PC.NURSE ---
awaiting pharmacy to send me 0900 lasix dose, message left with pharmacy. will give when received
[2022-04-02] MEDS: INSULIN ASPART (*BKC) 100 UNITS/ML SUB-Q (12:32)
[2022-04-02] MEDS: FUROSEMIDE 20 MG TABLET PO (12:59)
--- NOTE | 2022-04-02 13:27 | PM.IMPN ---
Progress Note: A&P Assessment and Plan (1) Urinary tract infection: Code(s): N39.0 - Urinary tract infection, site not specified Status: Acute (2) Acute kidney injury: Code(s): N17.9 - Acute kidney failure, unspecified Status: Acute (3) Sinus pause: Code(s): I45.5 - Other specified heart block Status: Acute (4) Confusion: Code(s): R41.0 - Disorientation, unspecified Status: Acute (5) Transaminitis: Code(s): R74.01 - Elevation of levels of liver transaminase levels Status: Acute (6) Chronic heart failure with preserved ejection fraction: Code(s): I50.32 - Chronic diastolic (congestive) heart failure Status: Inactive (7) Hyperglycemia: Code(s): R73.9 - Hyperglycemia, unspecified Status: Acute Plan # UTI Zosyn started March 27 for UTI as was possible cholecystitis, follow blood and urine culture. # Bacteremia and UTI with Proteus mirabilis switched to Levaquin no IV line present # possible cholecystitis HIDA scan rule out acute cholecystitis. Switched antibiotic to ceftriaxone for further course. Plan to complete the course with Levaquin at discharge # PRANAY creatinine 1.3 with BUN of 35 and a button admission. After hydration creatinine down to 1.1 and back to baseline however bumped up to 1.5 this morning. Likely due to hypotension 03/31/2022 recheck with stable and improving this morning # Sinus pause x2 in the ED reportedly 2-3 second in [facility]. Asymptomatic. Her beta-kika was on hold however since she went into AFib with RVR 03/31/2022 this was resumed. She had more recurrence of sinus pauses in the night 03/31/2022. Will monitor and lower beta-kika if needed. Stable on current dose will continue the same # AFib with RVR 03/31/2022 resumed metoprolol with improvement # acute encephalopathy has mild confusion CT head with no acute intracranial process # transaminitis: Etiology unclear abdominal exam is benign check right upper quadrant ultrasound hepatitis panel. Held statin. Ultrasound concerning for cholecystitis. General surgery consulted. HIDA scan is negative for cholecystitis. CT and ultrasound with cirrhotic changes in the liver likely pericholecystic free fluid related to underlying cirrhosis which is a new diagnosis for her. Has underlying diabetes type 2 and no history of alcohol use. 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 Hepatitis profile is negative mild thrombocytopenia no coagulopathy. Noted albumin level of 3.1. Ammonia level is negative. Needs follow-up with hepatology as an outpatient basis # chronic diastolic congestive heart failure clinically well compensated. Monitor volume status. Mild decompensation with a bit hypoxia noted. Chest x-ray with mild pulmonary vascular congestion noted restart Lasix # mild hypoxia needing few L of oxygen via nasal cannula. Chest x-ray with improving pulmonary edema compared to admission. Continue to monitor. Restart his Lasix 20 mg daily today # history of stroke with left-sided weakness residual #type 2 diabetes mellitus A1c is 7.7 continue sliding scale insulin # DVT prophylaxis on apixaban # code status full code Subjective Date/time seen: 04/02/22 13:27 Interval history: 03/29/2022 no overnight events.? Patient denies any new complaints.? Having diarrhea and belly is sore she states.? She remains afebrile and denies any chest pain shortness for breath no nausea or vomiting ?03/30/2022 feeling much better.? Denies any pain shortness a breath or chest pain.? Eating well.? She is from [facility]. 03/31/2022 overnight she was noted to be tachycardic.? EKG showed atrial fibrillation with the rapid ventricular rate.? She was given her metoprolol and IV metoprolol 1 does as well as her losartan that was restarted.? She was hypotensive later this afternoon.? For which a bolus was given.? She is a bit lethargic but alert and oriented x3.? Heart rate wa
[2022-04-02] MEDS: levoFLOXacin 750 MG TABLET PO (14:12)
[2022-04-02 16:26] LABS: Glucose Point of Care 104 mg/dl (65-105)
[2022-04-02] MEDS: DOXAZOSIN MESYLATE 2 MG TABLET PO (20:14)
[2022-04-03] VITALS (7 sets, daily range): BP systolic 152–171; BP diastolic 70–85; PULSE 4–74; RESP 16–18; TEMP 36.3–36.6; O2SAT 99–100
[2022-04-03 05:42] LABS: Basophils Percent Auto 0.2 % (0.2-1.2); Eosinophils Absolute Auto 0.1 K/mm3 (0-0.3); Eosinophils Percent Auto 1.1 % (0-4.4); Hematocrit 30.9 % (37.0-47.0); Hemoglobin 9.6 g/dL (12.0-15.0); Immature Granulocyte Absolute 0.16 K/mm3 (0.00-0.031); Immature Granulocyte Percent A 1.5 % (0-0.5); Lymphocytes Absolute Auto 0.82 K/mm3 (0.9-3.2); Lymphocytes Percent Auto 7.7 % (18.3-44.2); Mean Corpuscular HGB Conc 31.1 g/dl (32-36); Mean Corpuscular Hemoglobin 28.2 pg (26-34); Mean Corpuscular Volume 90.9 fl (80-100); Mean Platelet Volume 9.7 fl (7.4-10.4); Monocytes Absolute Auto 0.8 K/mm3 (0.1-0.6); Monocytes Percent Auto 7.4 % (2.6-8.5); Neutrophils Absolute Auto 8.8 K/mm3 (1.3-6.7); Neutrophils Percent Auto 82.1 % (45.5-73.1); Platelet Count Result 217 k/mm3 (150-375); Red Cell Distribution Width 13.8 % (11.5-14.5); White Blood Count 10.7 K/mm3 (4.5-10.0)
[2022-04-03 05:59] LABS: Alanine Aminotransferase 30 U/L (6-35); Alkaline Phosphatase 154 U/L (38-126); Anion Gap 8 mmol/L (8-16); Aspartate Amino Transferase 26 U/L (14-36); Bilirubin,Total 0.4 mg/dL (0.2-1.3); Blood Urea Nitrogen 18 mg/dL (7-17); Calcium 8.2 mg/dL (8.4-10.2); Carbon Dioxide 25 mmol/L (22-30); Chloride 102 mmol/L (98-107); Estimated CRCL calculation 24 ml/min; Estimated Glomerular Filt Rate 43; Glucose 96 mg/dL (65-110); Magnesium 1.8 mg/dL (1.6-2.3); Potassium 3.8 mmol/L (3.4-5.0); Sodium 135 mmol/L (137-145)
[2022-04-03] MEDS: LEVOTHYROXINE SODIUM 125 MCG TABLET PO (06:05)
[2022-04-03 06:18] LABS: Glucose Point of Care 123 mg/dl (65-105)
[2022-04-03] MEDS: hydrALAZINE HCL 25 MG TABLET PO (06:36)
[2022-04-03 07:51] LABS: Glucose Point of Care 101 mg/dl (65-105)
[2022-04-03] MEDS: FLUoxetine HCL 10 MG CAPSULE PO (08:24)
[2022-04-03] MEDS: FUROSEMIDE 20 MG TABLET PO (08:24)
[2022-04-03] MEDS: APIXABAN 2.5 MG TABLET PO (08:24)
[2022-04-03] MEDS: ATORVASTATIN 40 MG TABLET 80 MG PO (08:24)
[2022-04-03] MEDS: METOPROLOL SUCCINATE EXT REL 100 MG TABCR PO (08:24)
[2022-04-03] MEDS: ASPIRIN 81 MG CHEWABLE TABLET PO (08:24)
--- NOTE | 2022-04-03 11:44 | PM.DS ---
DS: Admitting Diagnosis Discharge Date 04/03/2022 Admitting Diagnosis Sepsis/fall DS: Discharge Diagnosis Discharge Diagnosis (1) Urinary tract infection: Code(s): N39.0 - Urinary tract infection, site not specified Status: Acute (2) Acute kidney injury: Code(s): N17.9 - Acute kidney failure, unspecified Status: Acute (3) Sinus pause: Code(s): I45.5 - Other specified heart block Status: Acute (4) Confusion: Code(s): R41.0 - Disorientation, unspecified Status: Acute (5) Transaminitis: Code(s): R74.01 - Elevation of levels of liver transaminase levels Status: Acute (6) Chronic heart failure with preserved ejection fraction: Code(s): I50.32 - Chronic diastolic (congestive) heart failure Status: Inactive (7) Hyperglycemia: Code(s): R73.9 - Hyperglycemia, unspecified Status: Acute Plan # UTI Zosyn started March 27 for UTI as was possible cholecystitis switched to Levaquin at discharge # Bacteremia and UTI with Proteus mirabilis. Treated since 2021. Switched to Levaquin to complete 10 day course of antibiotic for her UTI and bacteremia # possible cholecystitis HIDA scan rule out acute cholecystitis. Switched antibiotic to ceftriaxone for further course. Was switched to Levaquin discharge oral therapy # PRANAY creatinine 1.3 with BUN of 35 and a button admission. After hydration creatinine down to 1.1 and back to baseline however bumped up to 1.5 04/01/2022. Likely due to hypotension 03/31/2022 recheck with stable and improving and continues to improve # [facility] Asymptomatic. Her beta-kika was on hold however since she went into AFib with RVR 03/31/2022 this was resumed. She had more recurrence of sinus pauses in the night 03/31/2022. Will monitor and lower beta-kika if needed. Stable on current dose will continue the same # AFib with RVR 03/31/2022 resumed metoprolol with improvement # acute encephalopathy has mild confusion CT head with no acute intracranial process # transaminitis: Etiology unclear abdominal exam is benign check right upper quadrant ultrasound hepatitis panel. Held statin. Ultrasound concerning for cholecystitis. General surgery consulted. HIDA scan is negative for cholecystitis. CT and ultrasound with cirrhotic changes in the liver likely pericholecystic free fluid related to underlying cirrhosis which is a new diagnosis for her. Has underlying diabetes type 2 and no history of alcohol use. 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 Hepatitis profile is negative mild thrombocytopenia no coagulopathy. Noted albumin level of 3.1. Ammonia level is negative. Needs follow-up with hepatology as an outpatient basis # chronic diastolic congestive heart failure clinically well compensated. Monitor volume status. Mild decompensation with a bit hypoxia noted. Chest x-ray with mild pulmonary vascular congestion noted restart Lasix. Tapered off oxygen during the hospital stay # mild hypoxia needing few L of oxygen via nasal cannula. Chest x-ray with improving pulmonary edema compared to admission. Continue to monitor. Restart his Lasix 20 mg daily and improved with it. # history of stroke with left-sided weakness residual #type 2 diabetes mellitus A1c is 7.7 continue sliding scale insulin # DVT prophylaxis on apixaban # code status full code DS: Summary Hospital Course Hospital Course: See above Time Spent with Patient Time attestation: Total time spent providing and/or coordinating discharge services: 50 minutes Exam Narrative: General:??No acute distress, alert and oriented per baseline HEENT:? Atraumatic, normocephalic, mucous membranes moist CV:? AFib rhythm controlled heart rate S1, S2 Lungs:? Clear to auscultation bilaterally, no rales or crackles noted, no wheezes, good air entry Abdomen:? Soft, nontender, nondistended Extremities:? Nor
[2022-04-03 12:05] LABS: Glucose Point of Care 166 mg/dl (65-105)
[2022-04-03 12:08] LABS: Platelet Estimate Adequate (Adequate); Poikilocytosis 1+ (NORMAL)
[2022-04-03 12:09] LABS: Anisocytosis 1+ (NORMAL)
[2022-04-03 12:44] LABS: EDCOVIDSCREEN Negative (Negative)
== END 2022-04-03 14:57 | DRG 689 ==
LOC: ANHED 03-27 01:05 → ANHIMU 03-27 01:19 → ANH2MED 04-01 16:55
PROVIDERS: Physician Assistant; Student in an Organized Health Care Education/Training Program; Admitting Provider Student in an Organized Health Care Education/Training Program; Emergency Provider Emergency Medicine; Visit Provider Internal Medicine
DX: N39.0 Urinary tract infection, site not specified (principal); G93.41 Metabolic encephalopathy; I69.352 Hemiplegia and hemiparesis following cerebral infarction affecting left dominant side; N17.9 Acute kidney failure, unspecified; I50.32 Chronic diastolic (congestive) heart failure; R78.81 Bacteremia; K81.0 Acute cholecystitis; R09.02 Hypoxemia; Z20.822 Contact with and (suspected) exposure to COVID-19; B96.4 Proteus (mirabilis) (morganii) as the cause of diseases classified elsewhere; K75.81 Nonalcoholic steatohepatitis (NASH); I95.9 Hypotension, unspecified; E86.0 Dehydration; I45.5 Other specified heart block; D69.6 Thrombocytopenia, unspecified; E11.65 Type 2 diabetes mellitus with hyperglycemia; I35.0 Nonrheumatic aortic (valve) stenosis; E78.5 Hyperlipidemia, unspecified; I48.0 Paroxysmal atrial fibrillation; Z79.82 Long term (current) use of aspirin; Z79.01 Long term (current) use of anticoagulants; Z87.891 Personal history of nicotine dependence; Z85.850 Personal history of malignant neoplasm of thyroid
CPT/HCPCS: 36415; 36600; 51701; 70450; 71045; 74177; 76705; 78226; 80048; 80053; 80074; 81001; 82140; 82728; 82805; 82948; 83036; 83615; 83735; 84443; 85025; 85055; 87040; 87077; 87086; 87186; 87426; 93005; 96365; 96366; 96367; 97110; 97116; 97161; 97165; 97530; 97535; 99285; A9270; A9537; C9803; G0378; J0360; J0696; J1160; J1815; J2405; J2543; J7030; J7040; Q9967; U0003; U0005

== ENCOUNTER 2023-03-12 18:29 | Observation (INO) | payer OTHER, MEDICAID, SELFPAY ==
[2023-03-12] VITALS (39 sets, daily range): BP systolic 136–202; BP diastolic 71–165; PULSE 55–102; RESP 11–25; TEMP 36.5–36.7; O2SAT 91–100; BMI 25.2
--- NOTE | ~2023-03-12 | XR_ITS ---
EXAMINATION: XR chest 2V DATE: 03/12/2023 19:19 INDICATION: Shortness of breath. TECHNIQUE: Frontal and lateral views of the chest were obtained. COMPARISON: Chest single view 03/31/2022, 07/03/2021, CT abdomen and pelvis 03/31/2022 FINDINGS: There is a diffuse interstitial pattern in the lungs. No pleural effusion or pneumothorax. Cardiomegaly is noted. There is mild chronic anterior wedging of multiple thoracic vertebral bodies. IMPRESSION: 1. Diffuse interstitial pattern again seen, consistent with mild pulmonary edema and/or chronic inter stitial lung disease. 2. Cardiomegaly. Reviewed, dictated and finalized at location E. IMPRESSION: 1. Diffuse interstitial pattern again seen, consistent with mild pulmonary craig a and/or chronic interstitial lung disease. 2. Cardiomegaly.
--- NOTE | 2023-03-12 18:38 | ECG_ITS ---
Measurements Intervals [place] Rate: 65 P: OR: 0 QRS: 49 QRSD: 87 T: -6 QT: 406 QTc: 425 Interpretive Statements ATRIAL FIBRILLATION DELAYED PRECORDIAL R/S TRANSITION BORDERLINE T WAVE ABNORMALITY- INFERIOR LEADS BASELINE ARTIFACT- I, II, III, AVL, AVF, V1, V6 ABNORMAL ECG COMPARED TO ECG 03/31/2022 09:41:59 HEART RATE HAS DECREASED Electronically Signed On 03-12-2023 21:08:41 CDT by Kodi Gan D.O.
--- NOTE | 2023-03-12 18:41 | ED.ARRPALP ---
HPI - Arrhythmia/Palpitations General Chief Complaint: Arrhythmia/Palpitations <SAMMY Bunn Last Filed: 03/13/23 01:12> Stated Complaint: sob x 2 days <SAMMY Bunn Last Filed: 03/13/23 01:12> Time Seen by Provider: 03/12/23 18:35 <SAMMY Bunn Last Filed: 03/13/23 01:12> Source: patient, EMS and old records reviewed <SAMMY Bunn Last Filed: 03/13/23 01:12> Mode of arrival: EMS <SAMMY Bunn Last Filed: 03/13/23 01:12> Limitations: no limitations <SAMMY Bunn Last Filed: 03/13/23 01:12> History of Present Illness HPI narrative: Patient is an 82 y/o female, with PMH of CHF, AFIB on Eliquis, CAD s/p stenting, CVA 2yrs ago, who presents to the ED via EMS with report of shortness of breath. Patient is a resident of [facility]. She reports having increased shortness of breath with exertion over the last several days, worse today. She states typically she could walk up and down the length of her hallways without issue, however she was having difficulty even walking from her room from the elevator. She also reports having chest tightness with exertion. She denies any chest pain currently. Denies any recent cough or cold symptoms. Denies fevers. Denies any lower extremity swelling. Denies abdominal pain, nausea, vomiting. Patient was hypoxic into the upper 80s for EMS, she was placed on 3 L nasal cannula. Patient denies previous oxygen therapy. EMS also commented that patient's heart rate was ranging from 30-70 BPM. <SAMMY Bunn Last Filed: 03/13/23 01:12> Related Data Home Medications: Home Medications Medication Instructions Recorded Confirmed apixaban 2.5 mg tablet (Eliquis) 2.5 mg BID 07/03/21 03/12/23 atorvastatin 80 mg tablet 80 mg PO DAILY 07/03/21 03/12/23 levothyroxine 125 mcg tablet 125 mcg PO DAILY 07/03/21 03/12/23 fluoxetine 10 mg capsule 1 cap PO DAILY 03/14/22 03/12/23 <Sara Kingston PA-C - Last Filed: 03/13/23 01:12> Allergies/Adverse Reactions: Allergies Allergy/AdvReac Type Severity Reaction Status Date / Time No Known Drug Allergies Allergy Unknown Unknown Verified 03/14/22 15:51 <Sara Kingston PA-C - Last Filed: 03/13/23 01:12> Review of Systems Review of Systems: CONSTITUTIONAL: Denies fever, chills, or sweats. ENT: Denies rhinorrhea, congestion, sore throat. CARDIOVASCULAR: See HPI. RESPIRATORY: See HPI. GASTROINTESTINAL: Denies abdominal pain, nausea, vomiting, or diarrhea. GENITOURINARY: Denies dysuria or hematuria. SKIN: Denies rash or itching. MUSCULOSKELETAL: Denies back pain, joint pain, or myalgia. <Sara Kingston PA-C - Last Filed: 03/13/23 01:12> All systems reviewed & are unremarkable except as noted in HPI and below <Sara Kingston PA-C - Last Filed: 03/13/23 01:12> [facility] Past Medical History Medical History: Medical History Aortic valve stenosis Mild aortic valve stenosis with a valve area of 1.5 cm2 on echocardiogram in March 2022. 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 Right-sided heart failure <Sara Kingston PA-C - Last Filed: 03/13/23 01:12> Surgical History Surgical History: Surgical History History of appendectomy Open appendectomy History of right-sided carotid endarterectomy History of thyroidectomy <Sara Kingston PA-C - Last Filed: 03/13/23 01:12> Family History Family History: Family History
--- NOTE | 2023-03-12 18:45 | PC.NURSE ---
LADONNA Ruiz, notified that the pts HR hit a low of 38. Pt remains asymptomatic, pacer pads applied and crash cart in room as precaution.
[2023-03-12 18:54] LABS: Basophils Percent Auto 0.5 % (0.2-1.2); Eosinophils Absolute Auto 0.1 K/mm3 (0-0.3); Eosinophils Percent Auto 1.1 % (0-4.4); Hematocrit 38.3 % (37.0-47.0); Hemoglobin 12.1 g/dL (12.0-15.0); Immature Granulocyte Absolute 0.03 K/mm3 (0.00-0.031); Immature Granulocyte Percent A 0.5 % (0-0.5); Lymphocytes Absolute Auto 0.84 K/mm3 (0.9-3.2); Lymphocytes Percent Auto 13.6 % (18.3-44.2); Mean Corpuscular HGB Conc 31.6 g/dl (32-36); Mean Corpuscular Hemoglobin 30.6 pg (26-34); Mean Platelet Volume 9.6 fl (7.4-10.4); Monocytes Absolute Auto 0.7 K/mm3 (0.1-0.6); Monocytes Percent Auto 11.5 % (2.6-8.5); Neutrophils Absolute Auto 4.5 K/mm3 (1.3-6.7); Neutrophils Percent Auto 72.8 % (45.5-73.1); Platelet Count Result 168 k/mm3 (150-375); Red Blood Count 3.95 M/mm3 (4.2-5.4); Red Cell Distribution Width 14.4 % (11.5-14.5); White Blood Count 6.2 K/mm3 (4.5-10.0)
[2023-03-12 19:02] LABS: Alanine Aminotransferase 27 U/L (6-35); Albumin Level 4.8 g/dL (3.5-5.1); Alkaline Phosphatase 141 U/L (38-126); Anion Gap 7 mmol/L (8-16); Aspartate Amino Transferase 34 U/L (14-36); Bilirubin,Total 0.7 mg/dL (0.2-1.3); Blood Urea Nitrogen 41 mg/dL (7-17); Calcium 9.3 mg/dL (8.4-10.2); Carbon Dioxide 32 mmol/L (22-30); Chloride 100 mmol/L (98-107); Estimated CRCL calculation 21 ml/min; Estimated Glomerular Filt Rate 33; Glucose 220 mg/dL (65-110); Potassium 4.1 mmol/L (3.4-5.0); Sodium 139 mmol/L (137-145)
[2023-03-12 19:05] LABS: INR 1.3; Prothrombin Time 16.6 Seconds (11.1-14.7)
[2023-03-12 19:06] LABS: Partial Thromboplastin Time 39.9 SECONDS (22.3-36.8)
[2023-03-12 19:13] LABS: NT Pro B Type Natriuretic Pept 14000 pg/mL (19.9-100); Troponin I < 0.012 ng/mL (0.000-0.034)
[2023-03-12] MEDS: FUROSEMIDE INJ 40 MG/4 ML VIAL IV PUSH (19:36)
--- NOTE | 2023-03-12 20:17 | PM.IMHP ---
H&P: HPI History of Present Illness Date/Time: 03/12/23 20:17 Chief Complaint: sob Narrative: This is an 82-year-old female with past medical history significant for dyslipidemia, hypothyroidism, chronic kidney disease, congestive heart failure. patient resides at assisted facility was brought to the emergency room due to worsening shortness of breath for the last week or so mainly with exertion, denies any cough, sputum production, chest pain, palpitations, lightheadedness, no near syncope, no PND, no orthopnea, no fevers, no rigors, no chills. Preliminary workup was significant for brain natriuretic peptide 14,000, creatinine 1.5, BUN 41 EXAMINATION: XR chest 2V DATE: 03/12/2023 19:19 INDICATION: Shortness of breath. TECHNIQUE: Frontal and lateral views of the chest were obtained. COMPARISON: Chest single view 03/31/2022, 07/03/2021, CT abdomen and pelvis 03/31/2022 FINDINGS: There is a diffuse interstitial pattern in the lungs. No pleural effusion or pneumothorax. Cardiomegaly is noted. There is mild chronic anterior wedging of multiple thoracic vertebral bodies. IMPRESSION: 1. Diffuse interstitial pattern again seen, consistent with mild pulmonary edema and/or chronic interstitial lung disease. 2. Cardiomegaly. Review of Systems Review of Systems: shortness of breath, intermittent cough. Constitutional: Constitutional: Denies chills, Denies fever(s), Denies malaise, Denies night sweats and Denies poor appetite Eyes: Eyes: Denies change in vision ENT: Denies dysphagia and Denies odynophagia Cardiovascular: Cardiovascular: Denies leg edema, Denies radiating jaw, neck or arm pain, Denies palpitations, Reports dyspnea, Reports dyspnea on exertion, Denies orthopnea and Denies paroxysmal nocturnal dyspnea Respiratory: Respiratory: Denies chest congestion, Denies cough, Denies excessive phlegm production and Denies wheezing Gastrointestinal: Gastrointestinal: Denies abdominal pain, Denies dyspepsia, Denies heartburn, Denies diarrhea, Denies nausea and Denies vomiting Genitourinary: Genitourinary: Denies dysuria Musculoskeletal: Musculoskeletal: Denies arthralgias Integumentary/Breasts: Skin/Breast: Denies rash Neurologic: Denies vertigo, Denies dizziness, Denies focal weakness and Denies Sensory deficit (Neuro) Psychiatric: Psychiatric: Reports no additional psychiatric complaints and Reports as per HPI Endocrine: Endocrine: Denies cold intolerance, Denies flushing, Denies heat intolerance, Denies polyphagia, Denies polydipsia and Denies palpitations Hematologic/Lymphatic: Hematologic/Lymphatic: Reports no additional hematologic/lymphatic complaints and Reports as per HPI Allergic/Immunologic: Allergic/Immunologic: Reports no additional allergic/immunologic complaints and Reports as per HPI PMFSH Past Medical History Medical History Aortic valve stenosis Mild aortic valve stenosis with a valve area of 1.5 cm2 on echocardiogram in March 2022. 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 Right-sided heart failure Surgical History Surgical History History of appendectomy Open appendectomy History of right-sided carotid endarterectomy History of thyroidectomy Family History Family History Mother Cerebrovascular accident Hypertension Social History Social History Social History: Surrogate decision-maker: Lorne Grace, daughter and son. CODE STATUS: Full code. Smoking packs per day: 2 Smoking cigarettes per day:
[2023-03-12] MEDS: hydrALAZINE HCL 20 MG/ML VIAL 10 MG IV PUSH (20:52)
[2023-03-12 22:16] LABS: Troponin I < 0.012 ng/mL (0.000-0.034)
--- NOTE | 2023-03-12 23:24 | ADMGEN ---
This patient, Moriah Grace, was admitted to IMU Room 205-01 on 03/12/2023 at 2305. Patient/family oriented to hospital policies and general routines including ID bracelet, bed and alarms, visiting hours, pain management, procedures, bathroom and other care routines, personal items, smoking policy, room service/diet, and visiting hours. Information on how to activate the Rapid Response Team has been discussed. Patient/Family are encouraged to report perceived risks to care and to ask questions if they do not understand what they are told or what they should do.
[2023-03-13] VITALS (18 sets, daily range): BP systolic 140–183; BP diastolic 54–78; PULSE 50–105; RESP 16–18; TEMP 36–38.1; O2SAT 92–99
[2023-03-13] MEDS: hydrALAZINE HCL 20 MG/ML VIAL 10 MG IV PUSH ×2 (01:45→06:41)
[2023-03-13 01:47] LABS: Troponin I < 0.012 ng/mL (0.000-0.034)
[2023-03-13 01:52] LABS: Anion Gap 6 mmol/L (8-16); Blood Urea Nitrogen 39 mg/dL (7-17); Calcium 9.4 mg/dL (8.4-10.2); Carbon Dioxide 31 mmol/L (22-30); Chloride 100 mmol/L (98-107); Estimated CRCL calculation 24 ml/min; Estimated Glomerular Filt Rate 39; Glucose 179 mg/dL (65-110); Phosphorus 4.5 mg/dL (2.5-4.5); Potassium 4.2 mmol/L (3.4-5.0); Sodium 137 mmol/L (137-145)
--- NOTE | 2023-03-13 06:00 | ECHO_ITS ---
Patient Info Name: Moriah Grace Age: 82 years : 1940 Gender: Female Ht: 62 in Wt: 137 lbs BSA: 1.66 m2 HR: 67 bpm BP: 178 / 72 mmHg Heart Rhythm: Atrial Fibrillation Technical Quality: Fair Exam Date: 03/13/2023 9:07 AM Exam Location: [facility] Patient Status: Outpatient Admit Date: 03/12/2023 Staff Ordering Physician: Sara Kingston PA-C Business Continuity Coordinator: Tabby Hunt RDCS Attending Provider: Aneta Hutson MD Referring Physician: Thee BUSBY; Exam Type: CA echo doppler color flow Study Info Indications - acute CHF exacerbation, acute hypoxia Complete two-dimensional, color flow and Doppler transthoracic echocardiogram is performed. Summary 1. Complete two-dimensional, color flow and Doppler transthoracic echocardiogram is performed. 2. Left ventricular chamber dimension is normal. 3. Left ventricular systolic function is normal, estimated at 60-65%. 4. There is mild concentric increased left ventricular wall thickness. 5. The left ventricular diastolic function is abnormal. 6. E/e' 24 is elevated. 7. Atrial fibrillation. 8. Left atrial chamber dimension is severely enlarged. 9. Right atrial chamber dimension is mildly enlarged. 10. There is mild aortic valve sclerosis. 11. The mitral valve has mildly calcified annulus. 12. There is mild mitral valve regurgitation. 13. There is moderate tricuspid valve regurgitation. 14. Severe pulmonary hypertension, estimated pulmonary arterial systolic pressure is 70 mmHg. 15. There is mild pulmonic regurgitation. 16. Dilated inferior vena cava with <50% collapse upon inspiration consistent with significantly elevated right atrial pressure, 15 mmHg. 17. There is trivial pericardial effusion. Left Ventricle Atrial fibrillation. E/e' 24 is elevated. Left ventricular chamber dimension is normal. Left ventricular systolic function is normal, estimated at 60-65%. There is mild concentric increased left ventricular wall thickness. The left ventricular diastolic function is abnormal. Right Ventricle Right ventricular chamber dimension is normal. Right ventricular systolic function is normal. Left Atria Left atrial chamber dimension is severely enlarged. Right Atria Right atrial chamber dimension is mildly enlarged. Aortic Valve The aortic valve is trileaflet. There is mild aortic valve sclerosis. There is no aortic valve stenosis. There is no aortic valve regurgitation. Pulmonic Valve There is mild pulmonic regurgitation. Mitral Valve The mitral valve has mildly calcified annulus. There is no mitral valve stenosis. There is mild mitral valve regurgitation. Tricuspid Valve There is moderate tricuspid valve regurgitation. Severe pulmonary hypertension, estimated pulmonary arterial systolic pressure is 70 mmHg. Pericardium/Pleural There is trivial pericardial effusion. Inferior Vena Cava Dilated inferior vena cava with <50% collapse upon inspiration consistent with significantly elevated right atrial pressure, 15 mmHg. Aorta The aortic root size at the sinus of Valsalva is normal. Left Ventricular Outflow Tract Name Value Normal LVOT 2D LVOT Diameter 1.9 cm LVOT Doppler LVOT Peak Gradient
[2023-03-13] MEDS: LEVOTHYROXINE SODIUM 125 MCG TABLET PO (06:18)
--- NOTE | 2023-03-13 07:59 | PM.CNCAR ---
Assessment and Plan Assessment and plan (1) Bradycardia: Code(s): R00.1 - Bradycardia, unspecified Status: Acute Assessment and Plan: In ER it was reported HR dropped to 30's bpm. Hold Metoprolol. Monitor HR as it is in 60's bpm range now. (2) Acute exacerbation of CHF (congestive heart failure): Qualifiers: Heart failure type: unspecified Qualified Code(s): I50.9 - Heart failure, unspecified Code(s): I50.9 - Heart failure, unspecified Status: Acute Assessment and Plan: Unknown type of CHF. On Lasix 40 mg IV BID. Obtain echo. (3) Aortic valve stenosis: Code(s): I35.0 - Nonrheumatic aortic (valve) stenosis Status: Acute Assessment and Plan: Mild from echo a year ago. (4) Atrial fibrillation: Code(s): I48.91 - Unspecified atrial fibrillation Status: Acute Assessment and Plan: Chronic. On rate control with Metoprolol 100 mg daily which is on hold due to bradycardia last evening. [id number] 5. On Eliquis. (5) Hypertension: Code(s): I10 - Essential (primary) hypertension Status: Acute Assessment and Plan: Stable. (6) Hyperlipidemia: Code(s): E78.5 - Hyperlipidemia, unspecified Status: Acute Assessment and Plan: On Atorvastatin. History of Present Illness History of Present Illness Consult date/time: 03/13/23 07:59 Reason For Visit: acute CHF, acute hypoxia, TAYLOR, renal insufficiency Narrative: 82 yr old woman presents to ER with sob. She has a history of atrial fibrillation, hypertension, dyslipidemia. Reports that in last few days she noted more TAYLOR walking just short distances while normally she can walk up to 1/2 block. She had some chest tightness with it. Denies orthopnea, PND, edema, dizziness, palpitations. Review of Systems Review of Systems: All systems reviewed & are unremarkable except as noted in HPI and below Constitutional: Constitutional: Reports as per HPI, Denies chills, Reports fatigue and Denies fever(s) Cardiovascular: Cardiovascular: Reports as per HPI, Reports chest pain, Denies irregular heart rhythm, Denies leg edema and Denies lightheadedness Respiratory: Respiratory: Reports as per HPI and Reports dyspnea on exertion Gastrointestinal: Gastrointestinal: Reports as per HPI and Denies abdominal pain Genitourinary: Genitourinary: Reports as per HPI and Denies dysuria Musculoskeletal: Musculoskeletal: Reports as per HPI and Reports arthralgias Neurologic: Reports as per HPI, Denies dizziness and Denies syncope [facility] Past Medical History Medical History Aortic valve stenosis Mild aortic valve stenosis with a valve area of 1.5 cm2 on echocardiogram in March 2022. 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 Right-sided heart failure Surgical History Surgical History History of appendectomy Open appendectomy History of right-sided carotid endarterectomy History of thyroidectomy Family History Family History Mother Cerebrovascular accident Hypertension Social History Social History Social History: Surrogate decision-maker: Lorne carvajal Mateo Grace, daughter and son. CODE STATUS: Full code. Smoking packs per day: 2 Smoking cigarettes per day: 40.0 Years smoked: 50 Smoking pack-years: 100.00 Smoking status: Former smoker Alcohol intake: never Substance use: never Substance use type: does not use Lack of Transportation: No Lack of Food: Never True Current Housing: [facility]
[2023-03-13] MEDS: FUROSEMIDE INJ 40 MG/4 ML VIAL IV PUSH (09:56)
[2023-03-13] MEDS: FLUoxetine HCL 10 MG CAPSULE PO (09:56)
[2023-03-13] MEDS: APIXABAN 2.5 MG TABLET BY MOUTH ×2 (09:57→20:52)
[2023-03-13] MEDS: ATORVASTATIN 40 MG TABLET 80 MG PO (09:57)
--- NOTE | 2023-03-13 14:09 | PM.IMPN ---
Progress Note: A&P Assessment and Plan (1) Atrial fibrillation: Code(s): I48.91 - Unspecified atrial fibrillation Status: Acute (2) Bradycardia: Code(s): R00.1 - Bradycardia, unspecified Status: Acute Assessment and Plan: Hold metoprolol (3) Acute exacerbation of CHF (congestive heart failure): Qualifiers: Heart failure type: unspecified Qualified Code(s): I50.9 - Heart failure, unspecified Code(s): I50.9 - Heart failure, unspecified Status: Acute Assessment and Plan: ADmit to IMU diurese as needed Strict intake and output daily daily weights cardiology consulted continue to diuresis slowly repeat echocardiogram in a.m. pt has history of Summary 03/15/22 ? 1. Left ventricular chamber dimension is normal. ? 2. Left ventricular systolic function is normal, estimated at 60-65%. ? 3. There is moderately increased left ventricular wall thickness. ? 4. Left atrial chamber dimension is severely enlarged. ? 5. There is borderline mild aortic valve stenosis with a peak velocity of 118 cm/s, mean gradient of 3 mmHg, and aortic valve area of 1.5 cm2. ? 6. There is trace aortic valve regurgitation. ? 7. There is mild mitral valve regurgitation. ? 8. There is mild to moderate tricuspid valve regurgitation. ? 9. Severe pulmonary hypertension, estimated pulmonary arterial systolic pressure is 69 mmHg. ? 10. Dilated inferior vena cava with no collapse upon inspiration consistent with significantly elevated right atrial pressure, 15 mmHg. (4) Acute on chronic renal insufficiency: Code(s): N28.9 - Disorder of kidney and ureter, unspecified; N18.9 - Chronic kidney disease, unspecified Status: Acute Assessment and Plan: will hold losartan (5) Acute respiratory failure with hypoxia: Code(s): J96.01 - Acute respiratory failure with hypoxia Status: Acute Assessment and Plan: currently on 2 L of oxygen by nasal cannula continue to monitor (6) Aortic valve stenosis: Code(s): I35.0 - Nonrheumatic aortic (valve) stenosis Status: Acute Assessment and Plan: follow-up in outpatient setting Subjective Date/time seen: 03/13/23 14:09 Interval history: 82-year-old female with past medical history significant for dyslipidemia, hypothyroidism, chronic kidney disease, congestive heart failure. patient resides at snf facility was brought to the emergency room due to worsening shortness of breath for the last week or so mainly with exertion. Pt having Echocardiogram today seen by cardiology continue to diuresis. Pt admitted for chf exacerbation, bradycardia and history of . Review of Systems Review of Systems: SOB and weakness Objective Data Vital Signs Vital Signs: Vital Signs - 24 hr 03/12/23 18:29 03/12/23 18:35 03/12/23 18:35 Temperature 36.7 C Pulse Rate 84 59 L Respiratory Rate 14 Blood Pressure 187/87 H Pulse Oximetry 92 96 Oxygen Delivery Room Air Room Air Oxygen Flow Rate Fraction of Inspired Oxygen 03/12/23 18:41 03/12/23 18:39 03/12/23 18:45 Temperature Pulse Rate 69 61 Respiratory Rate 15 21 H Blood Pressure Pulse Oximetry 99 91 Oxygen Delivery Nasal Cannula Oxygen Flow Rate 2 Fraction of Inspired Oxygen 03/12/23 18:47 03/12/23 19:00 03/12/23 19:15 Temperature Pulse Rate 58 L 56 L 55 L Respiratory Rate 17 17 19 Blood Pressure 197/97 H Pulse Oximetry 96 100 100 Oxygen Delivery Oxygen Flow Rate Fraction of Inspired Oxygen 03/12/23 19:17 03/12/23 19:30 03/12/23 19:34 Temperature Pulse Rate 62 64 63 Respiratory Rate 18 16 19 Blood Pressure 197/93 H 136/89 Pulse Oximetry 100 Oxygen Delivery Oxygen Flow Rate Fraction of Inspired Oxygen 03/12/23 19:45 03/12/23 19:56 03/12/23 19:57 Temperature Pulse Rate 62 59 L Respiratory Rate 19 16 Blood Pressure 184/99 H Pulse Oxime
--- NOTE | 2023-03-13 16:23 | PCPTNOTE ---
On 03/13/23, the student, LESLY Al, provided care and completed [facility] documentation on this patient. I have reviewed the student's documentation and agree with the findings.
[2023-03-13] MEDS: FUROSEMIDE INJ 40 MG/4 ML VIAL 20 MG IV PUSH (20:53)
--- NOTE | 2023-03-13 21:48 | PC.NURSE ---
Patient transferring to room 232 with all belongings. SBAR faxed and report given to Mindy SCHWARTZ. No change from previous assessment.
[2023-03-13] MEDS: ACETAMINOPHEN 500 MG TABLET 1000 MG PO (23:32)
[2023-03-14] VITALS (10 sets, daily range): BP systolic 121–180; BP diastolic 50–74; PULSE 66–85; RESP 14–16; TEMP 36.1–37.1; O2SAT 90–96
--- NOTE | 2023-03-14 02:38 | PC.NURSE ---
bladder scan 219, voided 200ml
[2023-03-14] MEDS: LEVOTHYROXINE SODIUM 125 MCG TABLET PO (06:06)
[2023-03-14 06:46] LABS: Anion Gap 6 mmol/L (8-16); Blood Urea Nitrogen 40 mg/dL (7-17); Calcium 8.7 mg/dL (8.4-10.2); Carbon Dioxide 30 mmol/L (22-30); Chloride 100 mmol/L (98-107); Estimated CRCL calculation 21 ml/min; Estimated Glomerular Filt Rate 33; Glucose 153 mg/dL (65-110); Potassium 3.3 mmol/L (3.4-5.0); Sodium 136 mmol/L (137-145)
--- NOTE | 2023-03-14 07:53 | PM.PNCARD ---
Progress Note: A&P Assessment and Plan (1) Bradycardia: Code(s): R00.1 - Bradycardia, unspecified Status: Acute Assessment and Plan: In ER it was reported HR dropped to 30's bpm. Hold Metoprolol for over 24 hours and HR is normal in 60-70's bpm range. (2) Acute exacerbation of CHF (congestive heart failure): Qualifiers: Heart failure type: unspecified Qualified Code(s): I50.9 - Heart failure, unspecified Code(s): I50.9 - Heart failure, unspecified Status: Acute Assessment and Plan: Acute on diastolic heart failure. On Lasix 20 mg IV BID. 03/13/23 Echo: EF 60-65%, mild LVH, diastolic dysfunction (E/e' 24), severe LAE, mild JARED, mild MR, mod TR, RVSP 70 mmHg. Appears euvolemic now. Stop Lasix IV. Start Spironolactone 25 mg daily and Jardiance 10 mg daily. Limit fluid intake to 1.5 l/day. May d/c home from cardiology standpoint and f/u with me in 1 week. (3) Atrial fibrillation: Code(s): I48.91 - Unspecified atrial fibrillation Status: Acute Assessment and Plan: Chronic. On rate control with Metoprolol 100 mg daily which is on hold due to bradycardia last evening. [id number] 5. On Eliquis. No longer needs Metoprolol. (4) Hypertension: Code(s): I10 - Essential (primary) hypertension Status: Acute Assessment and Plan: High. Start Amlodipine 5 mg daily. (5) Hyperlipidemia: Code(s): E78.5 - Hyperlipidemia, unspecified Status: Acute Assessment and Plan: On Atorvastatin. Subjective Date/time seen: 03/14/23 07:53 Interval history: Denies any more sob. No chest pains. Exam Const: General: cooperative, healthy appearing and comfortable Orientation/consciousness: oriented to person, oriented to place and oriented to time Resp: Auscultation: clear to auscultation bilaterally, no crackles, no rales, no rhonchi and no wheezes Cardio: Rate: regular rate Rhythm: abnormal rhythm Heart sounds: no murmurs Peripheral pulses: dorsalis pedis present Neuro: General: oriented to person, oriented to place and oriented to time Extrem: Right lower extremity: no edema Left lower extremity: no edema Objective Data Vital Signs Vital Signs: Vital Signs - 24 hr 03/13/23 08:02 03/13/23 08:15 03/13/23 10:16 Temperature 96.8 F L 98.8 F Pulse Rate 73 Respiratory Rate 18 Blood Pressure 157/59 H Pulse Oximetry 97 99 Pulse Oximetry [At Rest After Therapy Session] Oxygen Delivery Nasal Cannula Oxygen Flow Rate 2 Fraction of Inspired Oxygen 28 03/13/23 08:00 03/13/23 10:00 03/13/23 08:00 Temperature Pulse Rate 71 67 Respiratory Rate Blood Pressure Pulse Oximetry 99 Pulse Oximetry [At Rest After Therapy Session] Oxygen Delivery Nasal Cannula Oxygen Flow Rate 1 Fraction of Inspired Oxygen 03/13/23 12:00 03/13/23 13:39 03/13/23 15:54 Temperature Pulse Rate 77 Respiratory Rate Blood Pressure Pulse Oximetry 93 Pulse Oximetry [At Rest After Therapy Session] 92 Oxygen Delivery Nasal Cannula Room Air Oxygen Flow Rate 2 Fraction of Inspired Oxygen 21 03/13/23 16:12 03/13/23 17:22 03/13/23 16:00 Temperature 99.6 F Pulse Rate 60 60 Respiratory Rate 18 Blood Pressure 140/61 Pulse Oximetry 95 Pulse Oximetry [At Rest After Therapy Session] Oxygen Delivery Room Air Oxygen Flow Rate Fraction of Inspired Oxygen 03/13/23 20:00 03/13/23 20:00 03/13/23 22:30 Temperature Pulse Rate 69 67 67 Respiratory Rate 18 18 Blood Pressure Pulse Oximetry 95 Pulse Oximetry [At Rest After Therapy Session] Oxygen Delivery Room Air Room Air Oxygen Flow Rate Fraction of Inspired Oxygen 21 03/13/23 22:30 03/13/23 23:32 03/14/23 00:00 Temperature 100.1 F H 100.6 F H Pulse Rate 50 L 71 Respiratory Rate 16 Blood Pressure 141/54 H Pulse Oximetry 93 Pulse Oximetry [At Rest After Therapy Session] Oxygen Delivery
[2023-03-14] MEDS: FLUoxetine HCL 10 MG CAPSULE PO (08:08)
[2023-03-14] MEDS: ATORVASTATIN 40 MG TABLET 80 MG PO (08:08)
[2023-03-14] MEDS: EMPAGLIFLOZIN 10 MG TABLET PO (08:08)
[2023-03-14] MEDS: APIXABAN 2.5 MG TABLET BY MOUTH ×2 (08:08→20:38)
[2023-03-14] MEDS: SPIRONOLACTONE 12.5 MG TABLET PO (08:08)
[2023-03-14] MEDS: POTASSIUM CHLORIDE 10 MEQ ER TABLET PO (08:53)
[2023-03-14] MEDS: amLODIPine BESYLATE 5 MG TABLET PO (08:53)
--- NOTE | 2023-03-14 09:25 | PM.IMPN ---
Progress Note: A&P Assessment and Plan (1) Atrial fibrillation: Code(s): I48.91 - Unspecified atrial fibrillation Status: Acute (2) Bradycardia: Code(s): R00.1 - Bradycardia, unspecified Status: Acute Assessment and Plan: Hold metoprolol (3) Acute exacerbation of CHF (congestive heart failure): Qualifiers: Heart failure type: unspecified Qualified Code(s): I50.9 - Heart failure, unspecified Code(s): I50.9 - Heart failure, unspecified Status: Acute Assessment and Plan: Echo from March 2023 showed an EF of 60-65% with abnormal diastolic dysfunction, severely enlarged left atria, severe pulmonary hypertension, moderate valvular disease Appreciate cardiology consultation, strict I&Os, daily weights, continue IV diuresis (4) Acute on chronic renal insufficiency: Code(s): N28.9 - Disorder of kidney and ureter, unspecified; N18.9 - Chronic kidney disease, unspecified Status: Acute Assessment and Plan: will hold losartan (5) Acute respiratory failure with hypoxia: Code(s): J96.01 - Acute respiratory failure with hypoxia Status: Acute Assessment and Plan: currently on 2 L of oxygen by nasal cannula continue to monitor (6) Aortic valve stenosis: Code(s): I35.0 - Nonrheumatic aortic (valve) stenosis Status: Acute Assessment and Plan: follow-up in outpatient setting Plan DVT prophylaxis with SCDs GI prophylaxis not indicated Code status full code Subjective Date/time seen: 03/14/23 09:25 Interval history: 82-year-old female with history of hypothyroidism, kidney disease and heart failure is presenting from a nursing facility for shortness of breath and being treated for heart failure exacerbation. No overnight events noted. No chest pain or shortness of breath. No nausea, vomiting or diarrhea. No fevers or chills. Feels better than when she came in. Review of Systems Review of Systems: 12 point review of systems was assessed and was negative except as noted in the HPI Exam Narrative: General: No acute distress, alert and oriented per baseline HEENT: Atraumatic, normocephalic, mucous membranes moist CV: Regular rate and rhythm, S1, S2 Lungs: Clear to auscultation bilaterally, no rales or crackles noted, no wheezes, good air entry Abdomen: Soft, nontender, nondistended Extremities: Normal to inspection Skin: No rashes noted, no lesions or wounds seen Psych: Euthymic, normal affect Objective Data Vital Signs Vital Signs: Vital Signs - 24 hr 03/13/23 10:16 03/13/23 10:00 03/13/23 12:00 Temperature 98.8 F Pulse Rate 67 77 Respiratory Rate Blood Pressure Pulse Oximetry Pulse Oximetry [At Rest After Therapy Session] Oxygen Delivery Oxygen Flow Rate Fraction of Inspired Oxygen 03/13/23 13:39 03/13/23 15:54 03/13/23 16:12 Temperature Pulse Rate Respiratory Rate Blood Pressure Pulse Oximetry 93 Pulse Oximetry [At Rest After Therapy Session] 92 Oxygen Delivery Nasal Cannula Room Air Room Air Oxygen Flow Rate 2 Fraction of Inspired Oxygen 03/13/23 17:22 03/13/23 16:00 03/13/23 20:00 Temperature 99.6 F Pulse Rate 60 60 69 Respiratory Rate 18 18 Blood Pressure 140/61 Pulse Oximetry 95 Pulse Oximetry [At Rest After Therapy Session] Oxygen Delivery Room Air Oxygen Flow Rate Fraction of Inspired Oxygen 03/13/23 20:00 03/13/23 22:30 03/13/23 22:30 Temperature 100.1 F H Pulse Rate 67 67 50 L Respiratory Rate 18 16 Blood Pressure 141/54 H Pulse Oximetry 95 93 Pulse Oximetry [At Rest After Therapy Session] Oxygen Delivery Room Air Oxygen Flow Rate Fraction of Inspired Oxygen 03/13/23 23:32 03/14/23 00:00 03/14/23 04:00 Temperature 100.6 F H Pulse Rate 71 66 Respiratory Rate Blood Pressure Pulse Oximetry Pulse Oximetry [At Rest After Therapy
--- NOTE | 2023-03-14 12:16 | PCPTNOTE ---
On 03/14/23, the student, BELINDA Issa, provided care and completed [facility] documentation on this patient. I have reviewed the student's documentation and agree with the findings.
--- NOTE | 2023-03-14 14:16 | PCOTNOTE ---
Patient refused treatment this session due to being tired. Patient was in a deep sleep and was very tired. Patient declined needing to use the restroom at this time. Patient stated she will work with OT tomorrow.
[2023-03-15] VITALS: PULSE 74
[2023-03-15 04:00] VITALS: PULSE 76
[2023-03-15 05:00] VITALS: BP 129/61; PULSE 89; RESP 16; TEMP 36.2; O2SAT 94
[2023-03-15] MEDS: LEVOTHYROXINE SODIUM 125 MCG TABLET PO (05:29)
[2023-03-15 06:32] LABS: Basophils Percent Auto 0.4 % (0.2-1.2); Eosinophils Absolute Auto 0.1 K/mm3 (0-0.3); Eosinophils Percent Auto 1.6 % (0-4.4); Hematocrit 38.3 % (37.0-47.0); Hemoglobin 12.3 g/dL (12.0-15.0); Immature Granulocyte Absolute 0.04 K/mm3 (0.00-0.031); Immature Granulocyte Percent A 0.5 % (0-0.5); Lymphocytes Absolute Auto 0.68 K/mm3 (0.9-3.2); Lymphocytes Percent Auto 9.2 % (18.3-44.2); Mean Corpuscular HGB Conc 32.1 g/dl (32-36); Mean Corpuscular Hemoglobin 30.4 pg (26-34); Mean Corpuscular Volume 94.6 fl (80-100); Mean Platelet Volume 9.2 fl (7.4-10.4); Monocytes Absolute Auto 1.2 K/mm3 (0.1-0.6); Monocytes Percent Auto 15.5 % (2.6-8.5); Neutrophils Absolute Auto 5.4 K/mm3 (1.3-6.7); Neutrophils Percent Auto 72.8 % (45.5-73.1); Platelet Count Result 147 k/mm3 (150-375); Red Blood Count 4.05 M/mm3 (4.2-5.4); Red Cell Distribution Width 13.9 % (11.5-14.5); White Blood Count 7.4 K/mm3 (4.5-10.0)
[2023-03-15 06:49] LABS: Alanine Aminotransferase 22 U/L (6-35); Albumin Level 4.2 g/dL (3.5-5.1); Alkaline Phosphatase 143 U/L (38-126); Anion Gap 7 mmol/L (8-16); Aspartate Amino Transferase 30 U/L (14-36); Bilirubin,Total 1.2 mg/dL (0.2-1.3); Blood Urea Nitrogen 34 mg/dL (7-17); Calcium 8.9 mg/dL (8.4-10.2); Carbon Dioxide 28 mmol/L (22-30); Chloride 103 mmol/L (98-107); Estimated CRCL calculation 22 ml/min; Estimated Glomerular Filt Rate 36; Glucose 152 mg/dL (65-110); Potassium 3.8 mmol/L (3.4-5.0); Sodium 138 mmol/L (137-145)
[2023-03-15 08:00] VITALS: PULSE 79
--- NOTE | 2023-03-15 08:04 | PM.PNCARD ---
Progress Note: A&P Assessment and Plan (1) Bradycardia: Code(s): R00.1 - Bradycardia, unspecified Status: Acute Assessment and Plan: In ER it was reported HR dropped to 30's bpm. Hold Metoprolol for over 24 hours and HR is normal in 60-70's bpm range. D/c Metoprolol. (2) Acute exacerbation of CHF (congestive heart failure): Qualifiers: Heart failure type: unspecified Qualified Code(s): I50.9 - Heart failure, unspecified Code(s): I50.9 - Heart failure, unspecified Status: Acute Assessment and Plan: Acute on diastolic heart failure. On Lasix 20 mg IV BID. 03/13/23 Echo: EF 60-65%, mild LVH, diastolic dysfunction (E/e' 24), severe LAE, mild JARED, mild MR, mod TR, RVSP 70 mmHg. Appears euvolemic now. Stop Lasix IV. Started Spironolactone 25 mg daily and Jardiance 10 mg daily. Limit fluid intake to 1.5 l/day. Check labs. January d/c home from cardiology standpoint and f/u with me in 1 week. (3) Atrial fibrillation: Code(s): I48.91 - Unspecified atrial fibrillation Status: Acute Assessment and Plan: Chronic. On rate control with Metoprolol 100 mg daily which is on hold due to bradycardia last evening. [id number] 5. On Eliquis. No longer needs Metoprolol. (4) Hypertension: Code(s): I10 - Essential (primary) hypertension Status: Acute Assessment and Plan: Stable. Started Amlodipine 5 mg daily. (5) Hyperlipidemia: Code(s): E78.5 - Hyperlipidemia, unspecified Status: Acute Assessment and Plan: On Atorvastatin. Subjective Date/time seen: 03/15/23 08:04 Interval history: Denies any more sob. No chest pains. Exam Const: General: cooperative, healthy appearing and comfortable Orientation/consciousness: oriented to person, oriented to place and oriented to time Resp: Auscultation: clear to auscultation bilaterally, no crackles, no rales, no rhonchi and no wheezes Cardio: Rate: regular rate Rhythm: abnormal rhythm Heart sounds: no murmurs Peripheral pulses: dorsalis pedis present Neuro: General: oriented to person, oriented to place and oriented to time Extrem: Right lower extremity: no edema Left lower extremity: no edema Objective Data Vital Signs Vital Signs: Vital Signs - 24 hr 03/14/23 12:00 03/14/23 14:18 03/14/23 16:00 Temperature 97.6 F Pulse Rate 85 73 83 Respiratory Rate 14 Blood Pressure 121/50 L Pulse Oximetry 96 Oxygen Delivery Fraction of Inspired Oxygen 03/14/23 20:40 03/14/23 20:00 03/14/23 20:00 Temperature 97.8 F Pulse Rate 72 72 73 Respiratory Rate 16 16 Blood Pressure 180/74 H Pulse Oximetry 95 95 Oxygen Delivery Room Air Fraction of Inspired Oxygen 21 03/15/23 00:00 03/15/23 05:00 03/15/23 04:00 Temperature 97.2 F L Pulse Rate 74 89 76 Respiratory Rate 16 Blood Pressure 129/61 Pulse Oximetry 94 Oxygen Delivery Fraction of Inspired Oxygen Intake/Output Intake/Output: Intake & Output 03/12/23 03/13/23 03/14/23 03/15/23 23:59 23:59 23:59 23:59 Intake Total 1100 1420 500 Output Total 1550 1000 650 Balance -450 420 -150 Meds/Results Medications: Active Medications Generic Name Dose Route Start Last Admin Trade Name Freq PRN Reason Stop Dose Admin Amlodipine Besylate 5 mg 03/14/23 09:00 03/14/23 08:53 Amlodipine Besylate 5 Mg Tablet PO 5 mg QAM ORLY Administration Apixaban 2.5 mg 03/13/23 09:00 03/14/23 20:38 Apixaban 2.5 Mg Tablet BY MOUTH 2.5 mg Q12HR ORLY Administration Atorvastatin Calcium 80 mg 03/13/23 09:00 03/14/23 08:08 Atorvastatin 40 Mg Tablet PO 80 mg DAILY ORLY Administration Empagliflozin 10 mg 03/14/23 09:00 03/14/23 08:08 Empagliflozin 10 Mg Tablet PO 10 mg DAILY ORLY Administration Fluoxetine HCl 10 mg 03/13/23 09:00 03/14/23 08:08 Fluoxetine Hcl 10 Mg Capsule PO 10 mg DAILY ORLY Administration Levothyroxine Sodium 125 mcg
[2023-03-15] MEDS: amLODIPine BESYLATE 5 MG TABLET PO (08:39)
[2023-03-15] MEDS: FLUoxetine HCL 10 MG CAPSULE PO (08:39)
[2023-03-15] MEDS: ATORVASTATIN 40 MG TABLET 80 MG PO (08:39)
[2023-03-15] MEDS: SPIRONOLACTONE 12.5 MG TABLET PO (08:40)
[2023-03-15] MEDS: APIXABAN 2.5 MG TABLET BY MOUTH (08:40)
[2023-03-15] MEDS: EMPAGLIFLOZIN 10 MG TABLET PO (08:40)
--- NOTE | 2023-03-15 10:50 | PM.IMPN ---
Progress Note: A&P Assessment and Plan (1) Atrial fibrillation: Code(s): I48.91 - Unspecified atrial fibrillation Status: Acute Assessment and Plan: Stable, rate controlled (2) Bradycardia: Code(s): R00.1 - Bradycardia, unspecified Status: Acute Assessment and Plan: Hold metoprolol (3) Acute exacerbation of CHF (congestive heart failure): Qualifiers: Heart failure type: unspecified Qualified Code(s): I50.9 - Heart failure, unspecified Code(s): I50.9 - Heart failure, unspecified Status: Acute Assessment and Plan: Echo from March 2023 showed an EF of 60-65% with abnormal diastolic dysfunction, severely enlarged left atria, severe pulmonary hypertension, moderate valvular disease Appreciate cardiology consultation, strict I&Os, daily weights, continue IV diuresis (4) Acute on chronic renal insufficiency: Code(s): N28.9 - Disorder of kidney and ureter, unspecified; N18.9 - Chronic kidney disease, unspecified Status: Acute Assessment and Plan: will hold losartan (5) Acute respiratory failure with hypoxia: Code(s): J96.01 - Acute respiratory failure with hypoxia Status: Acute Assessment and Plan: currently on 2 L of oxygen by nasal cannula continue to monitor (6) Aortic valve stenosis: Code(s): I35.0 - Nonrheumatic aortic (valve) stenosis Status: Acute Assessment and Plan: follow-up in outpatient setting Plan DVT prophylaxis with SCDs GI prophylaxis not indicated Code status full code Subjective Date/time seen: 03/15/23 10:50 Interval history: 82-year-old female with history of hypothyroidism, kidney disease and heart failure is presenting from a nursing facility for shortness of breath and being treated for heart failure exacerbation. No overnight events noted. No chest pain or shortness of breath. No nausea, vomiting or diarrhea. No fevers or chills. Feels better than when she came in. Review of Systems Review of Systems: 12 point review of systems was assessed and was negative except as noted in the HPI Exam Narrative: General: No acute distress, alert and oriented per baseline HEENT: Atraumatic, normocephalic, mucous membranes moist CV: Irregularly irregular, S1, S2 Lungs: Clear to auscultation bilaterally, no rales or crackles noted, no wheezes, good air entry Abdomen: Soft, nontender, nondistended Extremities: Normal to inspection Skin: No rashes noted, no lesions or wounds seen Psych: Euthymic, normal affect Objective Data Vital Signs Vital Signs: Vital Signs - 24 hr 03/14/23 12:00 03/14/23 14:18 03/14/23 16:00 Temperature 97.6 F Pulse Rate 85 73 83 Respiratory Rate 14 Blood Pressure 121/50 L Pulse Oximetry 96 Oxygen Delivery Fraction of Inspired Oxygen 03/14/23 20:40 03/14/23 20:00 03/14/23 20:00 Temperature 97.8 F Pulse Rate 72 72 73 Respiratory Rate 16 16 Blood Pressure 180/74 H Pulse Oximetry 95 95 Oxygen Delivery Room Air Fraction of Inspired Oxygen 21 03/15/23 00:00 03/15/23 05:00 03/15/23 04:00 Temperature 97.2 F L Pulse Rate 74 89 76 Respiratory Rate 16 Blood Pressure 129/61 Pulse Oximetry 94 Oxygen Delivery Fraction of Inspired Oxygen 03/15/23 08:30 03/15/23 08:00 Temperature Pulse Rate 79 Respiratory Rate Blood Pressure Pulse Oximetry Oxygen Delivery Room Air Fraction of Inspired Oxygen Intake/Output Intake/Output: Intake & Output 03/12/23 03/13/23 03/14/23 03/15/23 23:59 23:59 23:59 23:59 Intake Total 1100 1420 740 Output Total 1550 1000 650 Balance -450 420 90 Meds/Results Medications: Active Medications Generic Name Dose Route Start Last Admin Trade Name Freq PRN Reason Stop Dose Admin Amlodipine Besylate 5 mg 03/14/23 09:00 03/15/23 08:39 Amlodipine Besylate 5 Mg Tablet PO 5 mg [facility] Administrati
--- NOTE | 2023-03-15 10:55 | PM.DS ---
DS: Admitting Diagnosis Discharge Date 03/15/23 Admitting Diagnosis bradycardia DS: Discharge Diagnosis Discharge Diagnosis (1) Atrial fibrillation: Code(s): I48.91 - Unspecified atrial fibrillation Status: Acute (2) Bradycardia: Code(s): R00.1 - Bradycardia, unspecified Status: Acute (3) Acute exacerbation of CHF (congestive heart failure): Qualifiers: Heart failure type: unspecified Qualified Code(s): I50.9 - Heart failure, unspecified Code(s): I50.9 - Heart failure, unspecified Status: Acute (4) Acute on chronic renal insufficiency: Code(s): N28.9 - Disorder of kidney and ureter, unspecified; N18.9 - Chronic kidney disease, unspecified Status: Acute (5) Acute respiratory failure with hypoxia: Code(s): J96.01 - Acute respiratory failure with hypoxia Status: Acute (6) Aortic valve stenosis: Code(s): I35.0 - Nonrheumatic aortic (valve) stenosis Status: Acute DS: Summary Hospital Course Hospital Course: 82-year-old female with history of heart failure, kidney disease and other comorbidities is presenting with shortness of breath and found to be significantly bradycardic. Cardiology was consulted. They recommended discontinuing the metoprolol and diuresing with IV Lasix. Echo showed an EF of 60-65% with abnormal diastolic function, moderate valvular disease and severe pulmonary hypertension. Eliquis was continued for her atrial fibrillation. She was transitioned to spironolactone, Jardiance as well as amlodipine. Metoprolol will not be restarted. Please see above and med rec for details. Patient was stable for discharge per Cardiology and will be followed up outpatient closely by them. Time Spent with Patient Time attestation: Total time spent providing and/or coordinating discharge services: Exam Narrative: General: No acute distress, alert and oriented per baseline HEENT: Atraumatic, normocephalic, mucous membranes moist CV: Irregularly irregular, S1, S2 Lungs: Clear to auscultation bilaterally, no rales or crackles noted, no wheezes, good air entry Abdomen: Soft, nontender, nondistended Extremities: Normal to inspection Skin: No rashes noted, no lesions or wounds seen Psych: Euthymic, normal affect DS: Data Data Completed and Pending Labs on day of discharge: Labs from last 24 hours 07/13/23 05:56 WBC 7.4 RBC 4.05 L Hgb 12.3 Hct 38.3 MCV 94.6 MCH 30.4 MCHC 32.1 RDW 13.9 Plt Count 147 L MPV 9.2 Immature Gran % (Auto) 0.5 Neut % (Auto) 72.8 Lymph % (Auto) 9.2 L [place] % (Auto) 15.5 H Eos % (Auto) 1.6 Baso % (Auto) 0.4 Lymph # (Auto) 0.68 L [place] # (Auto) 1.2 H Eos # (Auto) 0.1 Baso # (Auto) 0.0 Abs Immat Gran (auto) 0.04 H Absolute Neuts (auto) 5.4 Absolute Nucleated RBC 0.0 Nucleated RBC % 0.0 Sodium 138 Potassium 3.8 Chloride 103 Carbon Dioxide 28 Anion Gap 7 L BUN 34 H Creatinine 1.40 H Estim Creat Clear Calc 22 Estimated GFR 36 L Glucose 152 H Calcium 8.9 Total Bilirubin 1.2 AST 30 ALT 22 Alkaline Phosphatase 143 H Total Protein 7.0 Albumin 4.2 Discharge Plan Discharge Attending physician on discharge: Inna Ferguson Consulting providers: Vijay Leon; Sara Kingston; Kodi Gan Discharging Clinician: Inna Ferguson Patient Disposition: Home, Self-Care Activity: as tolerated Diet: as tolerated Patient Instructions: Antibiotic Form, Apixaban (By mouth), Heart Failure (GEN) Stand Alone Forms: General Discharge Information Follow-up/Referrals: PHYSICIAN,BONDACTOR MACHINE OPERATOR [Primary Care Provider] - Discharge Medications: New Jardiance 10 mg Tablet 10 mg PO DAILY 30 Days Qty: 30 0RF amlodipine [Norvasc] 5 mg Tablet 5 mg PO QAM 30 Days Qty: 30 0RF spironolactone [Aldactone] 25 mg tablet 25 mg PO DAILY 30 Days Qty: 30 0RF Continued atorvastatin 80 mg tablet 80 mg PO DAILY
[2023-03-15] MEDS: FUROSEMIDE 40 MG TABLET PO (12:27)
[2023-03-15] MEDS: POTASSIUM CHLORIDE 10 MEQ ER TABLET PO (12:27)
--- NOTE | 2023-03-15 13:21 | PC.NURSE ---
1320 - RN called [facility] to give report on pt. No answer. RN will try again after a few minutes
== END 2023-03-15 14:10 | disposition home or self-care (01) ==
LOC: ANHED 19:57 → ANHIMU 22:52 → ANH3MEDSUR 03-14 09:45 → ANHIMU 03-19 07:58
PROVIDERS: Family Medicine; Admitting Provider Internal Medicine; Emergency Provider Physician Assistant; Visit Provider Student in an Organized Health Care Education/Training Program
DX: I48.91 Unspecified atrial fibrillation (principal); I13.0 Hypertensive heart and chronic kidney disease with heart failure and stage 1 through stage 4 chronic kidney disease, or unspecified chronic kidney disease; I50.9 Heart failure, unspecified; N18.9 Chronic kidney disease, unspecified; N17.9 Acute kidney failure, unspecified; J96.01 Acute respiratory failure with hypoxia; R00.1 Bradycardia, unspecified; I25.10 Atherosclerotic heart disease of native coronary artery without angina pectoris; Z95.5 Presence of coronary angioplasty implant and graft; I35.0 Nonrheumatic aortic (valve) stenosis; I69.352 Hemiplegia and hemiparesis following cerebral infarction affecting left dominant side; I11.0 Hypertensive heart disease with heart failure; R94.31 Abnormal electrocardiogram [ECG] [EKG]; E78.5 Hyperlipidemia, unspecified; R79.89 Other specified abnormal findings of blood chemistry; E03.9 Hypothyroidism, unspecified; Z79.01 Long term (current) use of anticoagulants; Z87.891 Personal history of nicotine dependence; Z79.899 Other long term (current) drug therapy
CPT/HCPCS: 36415; 71046; 80048; 80053; 83735; 83880; 84100; 84484; 85025; 85055; 85610; 85730; 93005; 93306; 96374; 96375; 96376; 97110; 97116; 97161; 97165; 97535; 99285; A9270; G0378; J0360; J1940

== ENCOUNTER 2023-07-07 10:24 | Emergency (ER) | payer OTHER, MEDICAID, SELFPAY ==
[2023-07-07] VITALS (23 sets, daily range): BP systolic 121–153; BP diastolic 60–87; PULSE 38–112; RESP 14–23; TEMP 36.5; O2SAT 90–99
--- NOTE | 2023-07-07 11:26 | ECG_ITS ---
Measurements Intervals [place] Rate: 46 P: [place]: 0 QRS: 36 QRSD: 79 T: 12 QT: 434 QTc: 384 Interpretive Statements ATRIAL FIBRILLATION WITH SLOW VENTRICULAR RESPONSE ANTEROSEPTAL INFARCT, AGE INDETERMINATE BORDERLINE T WAVE ABNORMALITY- INFERIOR LEADS BASELINE ARTIFACT- I, III, AVL ABNORMAL ECG COMPARED TO ECG 03/12/2023 18:36:40 HEART RATE HAS DECREASED MYOCARDIAL INFARCT FINDING NOW PRESENT Electronically Signed On 07-07-2023 16:44:11 CDT by Kodi aGn D.O.
[2023-07-07 11:47] LABS: Basophils Percent Auto 0.3 % (0.2-1.2); Eosinophils Absolute Auto 0.1 K/mm3 (0-0.3); Eosinophils Percent Auto 1.3 % (0-4.4); Hematocrit 42.7 % (37.0-47.0); Hemoglobin 13.9 g/dL (12.0-15.0); Immature Granulocyte Absolute 0.05 K/mm3 (0.00-0.031); Immature Granulocyte Percent A 0.8 % (0-0.5); Lymphocytes Absolute Auto 0.77 K/mm3 (0.9-3.2); Lymphocytes Percent Auto 12.9 % (18.3-44.2); Mean Corpuscular HGB Conc 32.6 g/dl (32-36); Mean Corpuscular Hemoglobin 30.5 pg (26-34); Mean Corpuscular Volume 93.6 fl (80-100); Mean Platelet Volume 10.2 fl (7.4-10.4); Monocytes Absolute Auto 0.6 K/mm3 (0.1-0.6); Monocytes Percent Auto 10.4 % (2.6-8.5); Neutrophils Absolute Auto 4.4 K/mm3 (1.3-6.7); Neutrophils Percent Auto 74.3 % (45.5-73.1); Platelet Count Result 161 k/mm3 (150-375); Red Blood Count 4.56 M/mm3 (4.2-5.4); Red Cell Distribution Width 13.2 % (11.5-14.5)
--- NOTE | 2023-07-07 12:18 | ED.GENADULT ---
HPI - General Adult General Chief complaint: GI Bleed Stated complaint: rectal bleeding Time Seen by Provider: 07/07/23 12:13 History of Present Illness HPI narrative: Patient is an 82-year-old female who presents to the emergency department this afternoon complaining of rectal bleeding. Patient states that throughout the past week she has noticed that every time she uses the bathroom when she wipes she sees bright red blood. She denies any blood mixed in with the stools or any blood noticed in the toilet bowl, stating that it is only present when she wipes. She denies any previous similar symptoms in the past. Patient admits that she does take Eliquis due to a history of atrial fibrillation. She denies any additional symptoms including chest pain, shortness of breath, nausea, vomiting, abdominal pain, dysuria, hematuria, constipation, diarrhea, melena, fevers or chills. He also denies any headaches, dizziness, lightheadedness, blurry visions, dizziness, focal weakness, numbness and or tingling. There are no other modifying, alleviating, or precipitating factors at this time. Related Data Home Medications Medication Instructions Recorded Confirmed apixaban 2.5 mg tablet (Eliquis) 2.5 mg BID 07/03/21 05/01/23 atorvastatin 80 mg tablet 80 mg PO DAILY 07/03/21 05/01/23 levothyroxine 125 mcg tablet 125 mcg PO DAILY 07/03/21 05/01/23 fluoxetine 10 mg capsule 1 cap PO DAILY 03/14/22 05/01/23 Allergies Allergy/AdvReac Type Severity Reaction Status Date / Time No Known Drug Allergies Allergy Unknown Unknown Verified 05/01/23 10:29 Review of Systems Review of Systems: All systems are reviewed and are negative unless stated otherwise in the HPI. [facility] Past Medical History Medical History Aortic valve stenosis Mild aortic valve stenosis with a valve area of 1.5 cm2 on echocardiogram in March 2022. 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 Right-sided heart failure Surgical History Surgical History History of appendectomy Open appendectomy History of right-sided carotid endarterectomy History of thyroidectomy Family History Family History Mother Cerebrovascular accident Hypertension Social History Social History Social History: Surrogate decision-maker: Lorne Grace, daughter and son. CODE STATUS: Full code. Smoking packs per day: 2 Smoking cigarettes per day: 40.0 Years smoked: 50 Smoking pack-years: 100.00 Smoking status: Former smoker Alcohol intake: never Substance use: never Substance use type: does not use Lack of Transportation: No Lack of Food: Never True Current Housing: I Have Housing Concerned About Future Housing: No Difficulty Paying Gas/Electric Bills: No Difficulty Paying for Meds: No Currently Unemployed: No Education: High School Diploma/GED Difficulty w/ Childcare or Family Care: No Additional living arrangements comments: Assisted living at [facility]. Additional occupation/education comments: Retired. Spiritual care concerns: No Exam Narrative: General: Alert, awake, afebrile, in no acute distress. HEENT: PERRL, no rhinorrhea, no post nasal drip, oropharynx clear. Neck: Trachea midline, no JVD, no lymphadenopathy. Cardiovascular: Regular rate with an irregular rhythm, no murmurs, rubs or gallops, no peripheral edema. Respiratory: Clear to auscultation bilaterally, no tachypnea, no wheezing, no rhonchi, no rubs, no respiratory distress. Abdomen: Soft, nontender, nondistended, no r
[2023-07-07 12:34] LABS: Alanine Aminotransferase 27 U/L (6-35); Albumin Level 4.5 g/dL (3.5-5.1); Alkaline Phosphatase 114 U/L (38-126); Anion Gap 11 mmol/L (8-16); Aspartate Amino Transferase 28 U/L (14-36); Blood Urea Nitrogen 35 mg/dL (7-17); Calcium 9.7 mg/dL (8.4-10.2); Carbon Dioxide 19 mmol/L (22-30); Chloride 104 mmol/L (98-107); Estimated CRCL calculation 21 ml/min; Estimated Glomerular Filt Rate 33; Glucose 170 mg/dL (65-110); Potassium 5.4 mmol/L (3.4-5.0); Sodium 134 mmol/L (137-145)
[2023-07-07 12:37] LABS: INR 1.3; Prothrombin Time 16.8 Seconds (11.1-14.7)
[2023-07-07 12:38] LABS: Partial Thromboplastin Time 37.5 SECONDS (22.3-36.8)
--- NOTE | 2023-07-07 13:29 | PC.NURSE ---
called [facility] where the pt is a residing and they are unable to provide a ride back for the pt. will be calling a cab since the pt does not qualify for ems.
== END 2023-07-07 13:51 ==
PROVIDERS: Emergency Medicine; Emergency Provider Emergency Medicine
DX: N93.9 Abnormal uterine and vaginal bleeding, unspecified (principal); I35.0 Nonrheumatic aortic (valve) stenosis; I69.954 Hemiplegia and hemiparesis following unspecified cerebrovascular disease affecting left non-dominant side; I48.0 Paroxysmal atrial fibrillation; I11.0 Hypertensive heart disease with heart failure; I50.810 Right heart failure, unspecified; I27.20 Pulmonary hypertension, unspecified; E78.5 Hyperlipidemia, unspecified; E89.0 Postprocedural hypothyroidism; Z87.891 Personal history of nicotine dependence; R94.31 Abnormal electrocardiogram [ECG] [EKG]; Z79.01 Long term (current) use of anticoagulants; Z79.84 Long term (current) use of oral hypoglycemic drugs
CPT/HCPCS: 36415; 80053; 85025; 85610; 85730; 86850; 86900; 86901; 93005; 99283

== ENCOUNTER 2023-08-31 13:18 | Emergency (ER) | payer OTHER, MEDICAID, SELFPAY ==
[2023-08-31] VITALS (34 sets, daily range): BP systolic 118–152; BP diastolic 52–96; PULSE 34–72; RESP 13–22; TEMP 36.6; O2SAT 95–100
--- NOTE | ~2023-08-31 | CT_ITS ---
EXAMINATION: CT abdomen pelvis wo con DATE: 08/31/2023 19:15 INDICATION: Vaginal and rectal bleeding TECHNIQUE: Computed tomography (CT) of the abdomen and pelvis was performed without intravenous contr ast. Automated exposure control and iterative reconstruction technique were employed. The dose-length product was 294.97 mGy-cm. COMPARISON: 03/26/2022 FINDINGS: Moderate cardiomegaly. Atherosclerotic coronary artery calcification is. No pericardial effusion. Susana undglass opacities and smooth septal line thickening at the bilateral lung bases consistent with mild pulmonary edema. No interval change in a 7 mm pleural-based pulmonary nodule at the posterior right lower lobe. Consider couple cysts in the left hepatic lobe measuring up to 1.2 cm. A few tiny calcifi ed gallstones along the dependent wall of the normal appearing gallbladder. Pancreas, spleen and bila teral adrenal glands are normal. 1.3 cm low-attenuation cyst at the lower pole of the left kidney. Th ere are additional indeterminate bilateral renal lesions with greater than simple fluid attenuation m easuring up to 8 mm at the upper pole of the right kidney and 1.8 cm at the lower pole of the left ki dney which are indeterminate for hemorrhagic/proteinaceous cyst versus solid neoplasm. There is moder ate colonic diverticulosis with a sigmoid predominance. There is no adjacent inflammatory change to suggest diverticulitis. No bowel obstruction. Small fat-containing umbilical hernia. The uterus is no t identified and has likely been surgically resected. Bladder is normal. No free intraperitoneal gas or fluid. No pathologically enlarged abdominal or pelvic lymphadenopathy. There is calcified atherosc lerosis of the aorta and many of the other arteries. Mild S-shaped curvature of the lumbar and lower thoracic spine with mild spondylosis and moderate to severe lower lumbar facet osteoarthritis. IMPRESSION: 1. Likely congestive heart failure with moderate cardio likely and mild pulmonary edema with bilatera l lung bases. 2. Indeterminate bilateral soft tissue attenuation renal lesions, the largest on the left measuring 1 .8 cm which statistically most likely to represent proteinaceous/hemorrhagic cysts although different ial includes renal cell carcinoma. Recommend further evaluation with pre and postcontrast MRI or CT. 3. Unchanged 7 mm pleural-based nodule at the posterior right lower lobe. Would consider additional 1 year follow-up CT. 4. Cholelithiasis. 5. Diverticulosis. Reviewed, dictated and finalized at location A. PHONE INFORMATION SUPERVISOR IMPRESSION: 1. Likely congestive heart failure with moderate cardio likely and mild pulmona ry edema with bilateral lung bases. 2. Indeterminate bilateral soft tissue attenuation renal lesions, the largest o n the left measuring 1.8 cm which statistically most likely to represent protei naceous/hemorrhagic cysts although differential includes renal cell carcinoma. Recommend further evaluation with pre and postcontrast MRI or CT. 3. Unchanged 7 mm pleural-based nodule at the posterior right lower lobe. Would consider additional 1 year follow-up CT. 4. Cholelithiasis. 5. Diverticulosis.
--- NOTE | 2023-08-31 13:29 | ECG_ITS ---
Measurements Intervals [place] Rate: 44 P: [place]: 0 QRS: 56 QRSD: 84 T: 29 QT: 430 QTc: 369 Interpretive Statements ATRIAL FIBRILLATION WITH SLOW VENTRICULAR RESPONSE WITH PREMATURE VENTRICULAR CONTRACTIONS SEPTAL MYOCARDIAL INFARCTION , PROBABLY OLD [40+ ms Q WAVE IN V1/V2] COMPARED TO ECG 07/07/2023 11:30:01 NO SIGNIFICANT CHANGES Electronically Signed On 08-31-2023 16:41:36 BUILDING OFFICIAL by Ridge Membreno M.D.
[2023-08-31 13:42] LABS: Basophils Percent Auto 0.3 % (0.2-1.2); Eosinophils Absolute Auto 0.1 K/mm3 (0-0.3); Eosinophils Percent Auto 1.4 % (0-4.4); Hematocrit 41.9 % (37.0-47.0); Hemoglobin 13.3 g/dL (12.0-15.0); Immature Granulocyte Absolute 0.06 K/mm3 (0.00-0.031); Immature Granulocyte Percent A 0.9 % (0-0.5); Lymphocytes Absolute Auto 0.72 K/mm3 (0.9-3.2); Lymphocytes Percent Auto 11.3 % (18.3-44.2); Mean Corpuscular HGB Conc 31.7 g/dl (32-36); Mean Corpuscular Hemoglobin 30.9 pg (26-34); Mean Corpuscular Volume 97.4 fl (80-100); Mean Platelet Volume 9.4 fl (7.4-10.4); Monocytes Absolute Auto 0.7 K/mm3 (0.1-0.6); Monocytes Percent Auto 10.5 % (2.6-8.5); Neutrophils Absolute Auto 4.8 K/mm3 (1.3-6.7); Neutrophils Percent Auto 75.6 % (45.5-73.1); Platelet Count Result 169 k/mm3 (150-375); Red Cell Distribution Width 12.6 % (11.5-14.5); White Blood Count 6.4 K/mm3 (4.5-10.0)
[2023-08-31 14:03] LABS: Alanine Aminotransferase 21 U/L (6-35); Albumin Level 4.3 g/dL (3.5-5.1); Alkaline Phosphatase 97 U/L (38-126); Anion Gap 10 mmol/L (8-16); Aspartate Amino Transferase 26 U/L (14-36); Bilirubin,Total 0.8 mg/dL (0.2-1.3); Blood Urea Nitrogen 37 mg/dL (7-17); Calcium 9.2 mg/dL (8.4-10.2); Carbon Dioxide 23 mmol/L (22-30); Chloride 105 mmol/L (98-107); Estimated CRCL calculation 18 ml/min; Estimated Glomerular Filt Rate 29; Glucose 242 mg/dL (65-110); INR 1.3; Prothrombin Time 17.2 Seconds (11.1-14.7); Sodium 138 mmol/L (137-145)
[2023-08-31 14:04] LABS: Partial Thromboplastin Time 40.4 SECONDS (22.3-36.8)
--- NOTE | 2023-08-31 14:50 | ED.GENADULT ---
HPI - General Adult General Chief complaint: GI Bleed <Mikayla Gale PA-C - Last Filed: 08/31/23 20:17> Stated complaint: rectal bleed <Mikayla Gale PA-C - Last Filed: 08/31/23 20:17> Time Seen by Provider: 08/31/23 13:53 <Mikayla Gale PA-C - Last Filed: 08/31/23 20:17> History of Present Illness HPI narrative: 82-year-old female with history of CHF, cirrhosis, hyperlipidemia, hypertension, atrial fibrillation chronically anticoagulated on Eliquis, s/p hysterectomy reports for evaluation for bright red blood per rectum around noon today. Patient states she had a bowel movement around 12:00 p.m. and she looked in the toilet and saw blood in the toilet bowl. She states she then noticed blood on the floor after she stood up. She is unsure if it is coming from her rectum or her vagina. She states her bowel movement was soft with denies diarrhea or pain with defecation. She denies dysuria, abdominal pain, chest pain or shortness of breath, lightheadedness or dizziness, syncope , fever. Patient states she had a colonoscopy within the past 10 years which was unremarkable. patient is also bradycardic in the 40s but continues to deny symptoms. chart review performed. Patient was admitted in March for a CHF exacerbation. She was found to be Bradycardic at that time. Her metoprolol was discontinued. Patient was seen in this ER on 07/07/2023 for complaint of rectal bleeding. On exam, there is no blood in the rectum, however there was some mild amount of blood in the vaginal canal. patient's vitals remained stable and her labs were largely unchanged, therefore she was discharged home with Ob and GI follow-up. The patient states she never followed up with these specialists. <Mikayla Gale PA-C - Last Filed: 08/31/23 20:17> Related Data Home medications: Home Medications Medication Instructions Recorded Confirmed apixaban 2.5 mg tablet (Eliquis) 2.5 mg BID 07/03/21 05/01/23 atorvastatin 80 mg tablet 80 mg PO DAILY 07/03/21 05/01/23 levothyroxine 125 mcg tablet 125 mcg PO DAILY 07/03/21 05/01/23 fluoxetine 10 mg capsule 1 cap PO DAILY 03/14/22 05/01/23 <Mikayla Gale PA-C - Last Filed: 08/31/23 20:17> Allergies/adverse reactions: Allergies Allergy/AdvReac Type Severity Reaction Status Date / Time No Known Drug Allergies Allergy Unknown Unknown Verified 08/31/23 14:08 <Mikayla Gale PA-C - Last Filed: 08/31/23 20:17> Review of Systems Review of Systems: CONSTITUTIONAL: Denies fever, chills, or sweats. EYES: Denies visual changes, redness, or discharge. ENT: Denies rhinorrhea, congestion, sore throat, or otalgia. CARDIOVASCULAR: Denies chest pain, palpitations, or edema. RESPIRATORY: Denies cough or dyspnea. GASTROINTESTINAL: See HPI GENITOURINARY: Denies dysuria or hematuria. SKIN: Denies rash or itching. MUSCULOSKELETAL: Denies back pain, joint pain, or myalgia. NEUROLOGIC: Denies headache, numbness, or weakness. PSYCHIATRIC: Denies anxiety or depression. <Mikayla Gale PA-C - Last Filed: 08/31/23 20:17> [facility] Past Medical History Medical History: Medical History Aortic valve stenosis Mild aortic valve stenosis with a valve area of 1.5 cm2 on echocardiogram in March 2022. 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 Right-sided heart failure <Mikayla Gale PA-C - Last Filed: 08/31/23 20:17> Surgical History Surgical History: Surgical History History of appendectomy Open appendectomy History of right-sided carotid endarterectomy History of thyroidectomy <Mikayla Gale
[2023-08-31 17:10] LABS: Magnesium 2.1 mg/dL (1.6-2.3)
[2023-08-31 17:11] LABS: Appearance Urine Turbid (Clear); Bacteria Urine 4+ /hpf; Bilirubin Urine Negative (Negative); Blood Urine 3+ (Negative); Color Urine Yellow (Yellow); Glucose Urine UA 3+ mg/dL (Negative); Ketones Urine Negative (Negative); Leukocyte Esterase Ur 2+ LEU/UL (Negative); Need Manual Microscopic Reviewed; Nitrate Urine Positive (Negative); Non Pathogenic Casts 0-2; Protein Urine 2+ mg/dL (Negative); RBC Urine 51-100 /hpf (0-2); Specific Grav Ur 1.023 (1.001-1.035); Squamous Epithelial Cell Urine Occasional /hpf (Few); WBC Urine >100 /hpf; pH Urine 5.5 (5.0-9.0)
[2023-08-31 17:13] LABS: Add Urine Microscopic? YES
[2023-08-31 17:23] LABS: Troponin I < 0.012 ng/mL (0.000-0.034)
[2023-08-31 18:18] LABS: Free T4 Free Thyroxine Reflex 1.13 ng/dL (0.78-2.19)
[2023-08-31 18:59] LABS: Total Triiodothyronine (T3) 0.82 NG/ML (0.97-1.69)
[2023-08-31] MEDS: CEPHALEXIN 500 MG CAPSULE PO (20:24)
--- NOTE | 2023-08-31 20:32 | PC.NURSE ---
cook house laborer contacted for cab voucher due to patient not having a ride home.
[2023-08-31 21:24] LABS: NT Pro B Type Natriuretic Pept 5570 pg/mL (19.9-100)
== END 2023-08-31 21:29 ==
PROVIDERS: Emergency Medicine; Emergency Provider Physician Assistant
DX: N95.2 Postmenopausal atrophic vaginitis (principal); K57.90 Diverticulosis of intestine, part unspecified, without perforation or abscess without bleeding; K80.20 Calculus of gallbladder without cholecystitis without obstruction; J81.0 Acute pulmonary edema; N28.89 Other specified disorders of kidney and ureter; R91.1 Solitary pulmonary nodule; R00.1 Bradycardia, unspecified; I50.9 Heart failure, unspecified; I11.0 Hypertensive heart disease with heart failure; I48.0 Paroxysmal atrial fibrillation; I35.0 Nonrheumatic aortic (valve) stenosis; I27.20 Pulmonary hypertension, unspecified; I69.954 Hemiplegia and hemiparesis following unspecified cerebrovascular disease affecting left non-dominant side; K74.60 Unspecified cirrhosis of liver; E78.5 Hyperlipidemia, unspecified; E03.9 Hypothyroidism, unspecified; Z87.891 Personal history of nicotine dependence; Z90.710 Acquired absence of both cervix and uterus; R94.31 Abnormal electrocardiogram [ECG] [EKG]
CPT/HCPCS: 36415; 74176; 80053; 81001; 83735; 83880; 84439; 84443; 84480; 84484; 85025; 85610; 85730; 86850; 86900; 86901; 87077; 87086; 87147; 87186; 93005; 99284; A9270

== ENCOUNTER 2024-04-26 09:38 | Emergency (ER) | payer OTHER, MEDICAID, SELFPAY ==
[2024-04-26 09:44] VITALS: BP 162/78; PULSE 65; RESP 16; TEMP 36.7; O2SAT 97
[2024-04-26 10:38] LABS: INR 1.3; Prothrombin Time 16.5 Seconds (11.1-14.7)
[2024-04-26 10:39] LABS: Partial Thromboplastin Time 32.9 Seconds (22.3-36.8)
[2024-04-26 10:44] VITALS: BP 162/82; PULSE 61; RESP 16; O2SAT 97
[2024-04-26 10:48] LABS: Basophils Percent Auto 0.3 % (0.2-1.2); Eosinophils Absolute Auto 0.1 K/mm3 (0-0.3); Eosinophils Percent Auto 1.4 % (0-4.4); Hematocrit 44.4 % (37.0-47.0); Hemoglobin 14.5 g/dL (12.0-15.0); Immature Granulocyte Absolute 0.06 K/mm3 (0.00-0.031); Lymphocytes Percent Auto 11.9 % (18.3-44.2); Mean Corpuscular HGB Conc 32.7 g/dl (32-36); Mean Corpuscular Hemoglobin 30.8 pg (26-34); Mean Corpuscular Volume 94.3 fl (80-100); Mean Platelet Volume 9.6 fl (7.4-10.4); Monocytes Absolute Auto 0.7 K/mm3 (0.1-0.6); Monocytes Percent Auto 11.8 % (2.6-8.5); Neutrophils Absolute Auto 4.3 K/mm3 (1.3-6.7); Neutrophils Percent Auto 73.6 % (45.5-73.1); Platelet Count Result 179 k/mm3 (150-375); Red Blood Count 4.71 M/mm3 (4.2-5.4); Red Cell Distribution Width 13.2 % (11.5-14.5); White Blood Count 5.9 K/mm3 (4.5-10.0)
--- NOTE | 2024-04-26 11:22 | ED.GIBLEED ---
HPI - GI Bleed General Chief complaint: GI Bleed Stated complaint: blood in toilet Time Seen by Provider: 04/26/24 10:02 History of Present Illness HPI Narrative: Patient is an 83-year-old female who presents ER with reports of rectal bleeding. Began last night. Reports she had large amounts of bright red blood within the stool and toilet. Patient reports she has been constipated but last had a small firm bowel movement yesterday morning. Patient does take Eliquis. No lightheadedness. No loss of consciousness. She has no chest pain or chest pressure. She has no abdominal pain. She is without diarrhea/nausea/ vomiting. Related Data Home Medications Medication Instructions Recorded Confirmed apixaban 2.5 mg tablet (Eliquis) 2.5 mg BID 07/03/21 10/30/23 atorvastatin 80 mg tablet 80 mg PO DAILY 07/03/21 10/30/23 levothyroxine 125 mcg tablet 125 mcg PO DAILY 07/03/21 10/30/23 fluoxetine 10 mg capsule 1 cap PO DAILY 03/14/22 10/30/23 metoprolol succinate 50 mg 50 mg PO DAILY 10/30/23 10/30/23 tablet,extended release 24 hr Allergies Allergy/AdvReac Type Severity Reaction Status Date / Time No Known Drug Allergies Allergy Unknown Unknown Verified 04/26/24 09:47 Review of Systems Review of Systems: All systems reviewed & are unremarkable except as noted in HPI and below Constitutional: Constitutional: Reports no additional constitutional complaints ENT: Reports system reviewed and no additional complaints, except as documented Cardiovascular: Cardiovascular: Reports no additional cardiovascular complaints Respiratory: Respiratory: Reports no additional respiratory complaints Gastrointestinal: Gastrointestinal: Denies abdominal pain, Denies diarrhea, Denies nausea and Denies vomiting Comments: Positive rectal bleeding [facility] Past Medical History Medical History (Reviewed 10/30/23 @ 10:45 by Ayala Villar [facility]) Aortic valve stenosis Mild aortic valve stenosis with a valve area of 1.5 cm2 on echocardiogram in March 2022. 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 Right-sided heart failure Surgical History Surgical History History of appendectomy Open appendectomy History of right-sided carotid endarterectomy History of thyroidectomy Family History Family History (Reviewed 10/30/23 @ 10:45 by Ayala Villar [facility]) Mother Cerebrovascular accident Hypertension Social History Social History (Updated 10/30/23 @ 10:52 by Ayala Villar [facility]) Social History: Surrogate decision-maker: Lorne Grace, daughter and son. CODE STATUS: Full code. Smoking packs per day: 2 Smoking cigarettes per day: 40.0 Years smoked: 50 Smoking pack-years: 100.00 Smoking status: Former smoker Alcohol intake: never Substance use: never Substance use type: does not use Do You Feel Safe in your Home?: Yes Lack of Transportation: No Lack of Food: Never True Current Housing: I Have Housing Concerned About Future Housing: No Difficulty Paying Gas/Electric Bills: No Difficulty Paying for Meds: No Currently Unemployed: No Education: High School Diploma/GED Difficulty w/ Childcare or Family Care: No Additional living arrangements comments: Assisted living at [facility]. Additional occupation/education comments: Retired. Spiritual care concerns: No Exam Narrative: GENERAL: Well-appearing, well-nourished, and in no acute distress. HEAD: Normocephalic, atraumatic. ENT: Mucous membranes moist. NECK: Supple. CHEST: Clear to auscultation. No respiratory distress. HEART: irregularly irregular rate and rhythm. Normal peripheral pulses. ABDOMEN: Soft, nontender, n
[2024-04-26 12:22] LABS: Alanine Aminotransferase 19 U/L (6-35); Albumin Level 4.4 g/dL (3.5-5.1); Alkaline Phosphatase 107 U/L (38-126); Anion Gap 11 mmol/L (4-12); Aspartate Amino Transferase 27 U/L (14-36); Bilirubin,Total 0.7 mg/dL (0.2-1.3); Blood Urea Nitrogen 34 mg/dL (7-17); Calcium 9.2 mg/dL (8.4-10.2); Carbon Dioxide 21 mmol/L (22-30); Chloride 107 mmol/L (98-107); Estimated CRCL calculation 20 ml/min; Estimated Glomerular Filt Rate 33; Glucose 76 mg/dL (65-110); Potassium 5.1 mmol/L (3.4-5.0); Sodium 139 mmol/L (137-145)
[2024-04-26 13:06] VITALS: BP 146/73; PULSE 71; RESP 19; O2SAT 98
== END 2024-04-26 13:08 ==
PROVIDERS: Emergency Provider Emergency Medicine
DX: K64.9 Unspecified hemorrhoids (principal); I35.0 Nonrheumatic aortic (valve) stenosis; I69.954 Hemiplegia and hemiparesis following unspecified cerebrovascular disease affecting left non-dominant side; I48.0 Paroxysmal atrial fibrillation; I27.20 Pulmonary hypertension, unspecified; I50.810 Right heart failure, unspecified; I11.0 Hypertensive heart disease with heart failure; E89.0 Postprocedural hypothyroidism; E78.5 Hyperlipidemia, unspecified; Z87.891 Personal history of nicotine dependence; Z79.01 Long term (current) use of anticoagulants; Z79.899 Other long term (current) drug therapy; Z79.84 Long term (current) use of oral hypoglycemic drugs
CPT/HCPCS: 36415; 80053; 85025; 85610; 85730; 86850; 86900; 86901; 99283

== ENCOUNTER 2024-06-23 07:49 | Observation (INO) | payer OTHER, SELFPAY ==
[2024-06-23] VITALS (10 sets, daily range): BP systolic 98–166; BP diastolic 59–95; PULSE 62–94; RESP 18–20; TEMP 36.6–36.9; O2SAT 95–99; BMI 27.1
--- NOTE | ~2024-06-23 | CT_ITS ---
CT abdomen pelvis wo con Ordering provider: George Locke MD History: 83 years Female with . ab pain . Comparison: August 31, 2023 Technique: CT abdomen and pelvis without IV and without oral contrast. Automated exposure control and iterative reconstruction technique were employed. The dose-length product was 356.99 mGy-cm. Findings: VISUALIZED LOWER CHEST: Dependent atelectatic changes. Underlying fibrotic changes. Nodule is seen in the left lower lobe measuring 6.4 mm which is slightly larger than the previous study. 6 months foll ow-up CT is advised. Slight cardiomegaly. UPPER ABDOMINAL ORGANS: Liver: Hypodensity in the left lobe of the liver most likely a cyst or hemangioma. This area measures 9 mm. Another one is noted measuring 1.1 cm. Follow-up advised. Gallbladder: Cholelithiasis. Spleen: Normal. Stomach/duodenum: Normal. Pancreas: Normal. Adrenals: Normal. Kidneys: Solid lesions are seen in the left kidney lower pole the largest measures 1.6 cm. The other one measures 1.2 cm. Both lesions are unchanged from previous examination. Follow-up advised. No hydr onephrotic changes or definite stones seen. PELVIC ORGANS: The bladder is normal. BOWEL AND MESENTERY: Colon: Mild sigmoid diverticulosis without diverticulitis. Appendix is not demonstrated. Small Bowel: Normal. No obstruction. Peritoneum/mesentery: No free air or free fluid. No mesenteric lymphadenopathy. RETROPERITONEUM: Moderate atheromatous disease of the abdominal aorta. Atherosclerotic changes in th e iliac arteries. No retroperitoneal lymphadenopathy. MUSCULOSKELETAL: Superficial soft tissues: The superficial soft tissues are normal. Bones: Age appropriate degenerative changes of the spine. Bilateral hip osteoarthritic changes. Dextr oscoliosis. IMPRESSION: 1. 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 2. Cholelithiasis. 3. No evidence of appendicitis, diverticulitis or intestinal obstruction. 4. Nodule in the left lower lobe slightly increased compared to previous study. Three-month CT follo w-up advised. 5. Hypodensities in the liver unchanged Reviewed, dictated and finalized at location A. IMPRESSION: 1. 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 2. Cholelithiasis. 3. No evidence of appendicitis, diverticulitis or intestinal obstruction. 4. Nodule in the left lower lobe slightly increased compared to previous study . Three-month CT follow-up advised. 5. Hypodensities in the liver unchanged
--- NOTE | 2024-06-23 08:01 | ED.GENADULT ---
HPI - General Adult General Chief complaint: GI Bleed Stated complaint: bright red blood in stool Time Seen by Provider: 06/23/24 07:52 History of Present Illness HPI narrative: 83-year-old female presenting to the emergency department for evaluation for blood in her stool. Patient reports that she did have blood in her stool last night does have some low abdominal discomfort. Patient reports that she had also had blood in her stool this morning this was witnessed by nursing and by EMS. Patient does take Eliquis for history of AFib. Related Data Home Medications Medication Instructions Recorded Confirmed apixaban 2.5 mg tablet (Eliquis) 2.5 mg BID 07/03/21 06/23/24 atorvastatin 80 mg tablet 80 mg PO DAILY 07/03/21 06/23/24 metoprolol succinate 50 mg 50 mg PO DAILY 10/30/23 06/23/24 tablet,extended release 24 hr albuterol sulfate 90 mcg/actuation 2 puff inhalation Q4H PRN 06/23/24 06/23/24 aerosol inhaler Shortness Of Breath fluoxetine 20 mg capsule 20 mg PO DAILY 06/23/24 06/23/24 glimepiride 2 mg tablet 2 mg PO DAILY 06/23/24 06/23/24 levothyroxine 50 mcg tablet 50 mcg PO DAILY 06/23/24 06/23/24 metformin 500 mg tablet,extended 500 mg PO DAILY 06/23/24 06/23/24 release 24 hr Allergies Allergy/AdvReac Type Severity Reaction Status Date / Time No Known Drug Allergies Allergy Unknown Unknown Verified 06/23/24 07:57 Review of Systems Review of Systems: All systems reviewed & are unremarkable except as noted in HPI and below [facility] Past Medical History Medical History (Updated 06/23/24 @ 14:33 by Damion Moreno MD) Acute on chronic kidney failure Aortic valve stenosis Mild aortic valve stenosis with a valve area of 1.5 cm2 on echocardiogram in March 2022. 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 Right-sided heart failure Surgical History Surgical History History of appendectomy Open appendectomy History of partial hysterectomy History of right-sided carotid endarterectomy History of thyroidectomy Family History Family History Mother Cerebrovascular accident Hypertension Social History Social History (Updated 06/23/24 @ 13:15 by Dianna Siddiqi APRN) Social History: Surrogate decision-maker: Lorne Grace, daughter and son. CODE STATUS: She is okay with CPR and medications but does not wish to be intubated. Modified code, updated. Smoking packs per day: 2 Smoking cigarettes per day: 40.0 Years smoked: 50 Smoking pack-years: 100.00 Smoking status: Former smoker Tobacco type: cigarettes Smoking end date: 06/08/20 Alcohol intake: never Substance use: never Substance use type: does not use Do You Feel Safe in your Home?: Yes Lack of Transportation: No Lack of Food: Never True Current Housing: I Have Housing Concerned About Future Housing: No Difficulty Paying Gas/Electric Bills: No Difficulty Paying for Meds: No Currently Unemployed: No Education: High School Diploma/GED Difficulty w/ Childcare or Family Care: No Additional living arrangements comments: Assisted living at [facility]. Additional occupation/education comments: Retired. Spiritual care concerns: No Exam Narrative: APPEARANCE: Well appearing, no pain, no distress, well-nourished. HEAD: normocephalic, atraumatic. EYES: PERRLA/EOMI, conjunctivae clear. NOSE: Normal no drainage EARS:TMS clear with good light reflex. THROAT: Pharynx clear, no exudate. NECK: Supple. No adenopathy, no masses. RESPIRATORY: Airway patent, respirations nonlabored. Clear to auscultation bilaterally, no rales, rhonchi, wheezing. CARDIOVASCULAR: Regular rate and rhythm without murmurs rubs or gallops. ABDOMINAL: Soft, nontender, nondistended, normal bowel sounds MUSCULOSKELETAL: Moves all extremities. Strength/ROM intact, No edema, No calf tenderness. NEURO: Alert. Cranial nerves II through XII intact. Good gait. Good coordination SKIN: Warm, dry. Normal Color Rectal exam: Irritation around the perianal region, no thrombosed hemorrhoids Course Course Emergency Course: 83-year-old female presented emergency department for evaluation for rectal bleeding. Patient was admitted to the hospitalist with GI consult for bright red blood per rectum. Vital Signs Vital signs: Vital Signs Temperature 97.9 F 06/23/24 07:50 Pulse Rate 70 06/23/24 07:50 Respiratory Rate 18 06/23/24 07:50 Blood Pressure 129/82 06/23/24 07:50 Pulse Oximetry 99 06/23/24 07:50 Oxygen Delivery Room Air 06/23/24 07:50 Temperature 98 F 06/23/24 13:34 Pulse Rate 74 06/23/24 16:00 Respiratory Rate 18 06/23/24 13:34 Blood Pressure 126/83 06/23/24 13:34 Pulse Oximetry 96 06/23/24 13:34 Oxygen Delivery Room Air 06/23/24 12:03 Medical Decision Making MDM Narrative Medical decision making narrative: 83-year-old female presenting to the emergency department for evaluation for bright red blood per rectum. Patient is on Eliquis for history of atrial fibrillation. Patient does have some irritation of her appearing anal region and this may be the source of the bleeding. No active bleeding was seen the patient's digital rectal exam and she was Hemoccult negative. Patient is afebrile with no leukocytosis and hemoglobin of 13.3. INR is 1.3. Patient did have a mild hyperkalemia 5.1 and a creatinine of 1.8. Case was discussed with GI and GI was consulted. Case discussed with hospitalist patient was admitted. Patient was updated on the plan for admission and treatment. All questions concerns were addressed patient was well-appearing at time of admission Differential Diagnosis Differential Diagnosis: Internal hemorrhoid, external hemorrhoid, upper GI bleed, lower GI bleed Vital Signs Vital Signs: Vital Signs Temperature 97.9 F 06/23/24 07:50 Pulse Rate 70 06/23/24 07:50 Respiratory Rate 18 06/23/24 07:50 Blood Pressure 129/82 06/23/24 07:50 Pulse Oximetry 99 06/23/24 07:50 Oxygen Delivery Room Air 06/23/24 07:50 Temperature 98 F 06/23/24 13:34 Pulse Rate 74 06/23/24 16:00 Respiratory Rate 18 06/23/24 13:34 Blood Pressure 126/83 06/23/24 13:34 Pulse Oximetry 96 06/23/24 13:34 Oxygen Delivery Room Air 06/23/24 12:03 Lab Data Lab results reviewed: Yes I reviewed the patient's lab results. 06/23/24 13:59 06/23/24 08:12 Labs: Lab Results 06/23/24 Range/Units 08:12 WBC 6.7 (4.5-10.0) K/mm3 RBC 4.30 (4.2-5.4) M/mm3 Hgb 13.1 (12.0-15.0) g/dL Hct 40.5 (37.0-47.0) % MCV 94.2 (80-100) fl MCH 30.5 (26-34) pg MCHC 32.3 (32-36) g/dl RDW 12.8 (11.5-14.5) % Plt Count 164 (150-375) k/mm3 MPV 9.6 (7.4-10.4) fl Immature Gran % (Auto) 1.0 H (0-0.5) % Neut % (Auto) 74.0 H (45.5-73.1) % Lymph % (Auto) 9.4 L (18.3-44.2) % [place] % (Auto) 13.8 H (2.6-8.5) % Eos % (Auto) 1.5 (0-4.4) % Baso % (Auto) 0.3 (0.2-1.2) % Lymph # (Auto) 0.63 L (0.9-3.2) K/mm3 [place] # (Auto) 0.9 H (0.1-0.6) K/mm3 Eos # (Auto) 0.1 (0-0.3) K/mm3 Baso # (Auto) 0.0 (0.0-0.1) K/mm3 Abs Immat Gran (auto) 0.07 H (0.00-0.031) K/mm3 Absolute Neuts (auto) 4.9 (1.3-6.7) K/mm3 Absolute Nucleated RBC 0.000 (0.0-0.012) K/mm3 Nucleated RBC % 0.0 (0.0-0.2) % PT 16.6 H (11.1-14.7) Seconds INR 1.3 APTT 33.0 (22.3-36.8) Seconds Sodium 137 (137-145) mmol/L Potassium 5.1 H (3.4-5.0) mmol/L Chloride 106 (98-107) mmol/L Carbon Dioxide 22 (22-30) mmol/L Anion Gap 9 (4-12) mmol/L BUN 37 H (7-17) mg/dL Creatinine 1.80 H (0.7-1.0) mg/dL Estim Creat Clear Calc 18 ml/min Estimated GFR 27 L (59 - ) Glucose 81 (65-110) mg/dL Calcium 9.5 (8.4-10.2) mg/dL Total Bilirubin 0.6 (0.2-1.3) mg/dL AST 28 (14-36) U/L ALT 14 (6-35) U/L Alkaline Phosphatase 89 (38-126) U/L Total Protein 8.0 (6.3-8.2) g/dL Albumin 4.5 (3.5-5.1) g/dL Blood Type A Positive Antibody Screen Negative Imaging Data Radiologist's impression: Impressions Abdomen/Pelvis CT 06/23/24 09:03 IMPRESSION: 1. 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 2. Cholelithiasis. 3. No evidence of appendicitis, diverticulitis or intestinal obstruction. 4. Nodule in the left lower lobe slightly increased compared to previous study. Three-month CT follow-up advised. 5. Hypodensities in the liver unchanged Discharge Plan Discharge Clinical Impression: BRBPR (bright red blood per rectum) Patient Disposition: Still a Patient Condition: Serious
[2024-06-23 08:20] LABS: Basophils Percent Auto 0.3 % (0.2-1.2); Eosinophils Absolute Auto 0.1 K/mm3 (0-0.3); Eosinophils Percent Auto 1.5 % (0-4.4); Hematocrit 40.5 % (37.0-47.0); Hemoglobin 13.1 g/dL (12.0-15.0); Immature Granulocyte Absolute 0.07 K/mm3 (0.00-0.031); Lymphocytes Absolute Auto 0.63 K/mm3 (0.9-3.2); Lymphocytes Percent Auto 9.4 % (18.3-44.2); Mean Corpuscular HGB Conc 32.3 g/dl (32-36); Mean Corpuscular Hemoglobin 30.5 pg (26-34); Mean Corpuscular Volume 94.2 fl (80-100); Mean Platelet Volume 9.6 fl (7.4-10.4); Monocytes Absolute Auto 0.9 K/mm3 (0.1-0.6); Monocytes Percent Auto 13.8 % (2.6-8.5); Neutrophils Absolute Auto 4.9 K/mm3 (1.3-6.7); Platelet Count Result 164 k/mm3 (150-375); Red Cell Distribution Width 12.8 % (11.5-14.5); White Blood Count 6.7 K/mm3 (4.5-10.0)
[2024-06-23 08:32] LABS: Alanine Aminotransferase 14 U/L (6-35); Albumin Level 4.5 g/dL (3.5-5.1); Alkaline Phosphatase 89 U/L (38-126); Anion Gap 9 mmol/L (4-12); Aspartate Amino Transferase 28 U/L (14-36); Bilirubin,Total 0.6 mg/dL (0.2-1.3); Blood Urea Nitrogen 37 mg/dL (7-17); Calcium 9.5 mg/dL (8.4-10.2); Carbon Dioxide 22 mmol/L (22-30); Chloride 106 mmol/L (98-107); Estimated CRCL calculation 18 ml/min; Estimated Glomerular Filt Rate 27; Glucose 81 mg/dL (65-110); Potassium 5.1 mmol/L (3.4-5.0); Sodium 137 mmol/L (137-145)
[2024-06-23 08:40] LABS: INR 1.3; Prothrombin Time 16.6 Seconds (11.1-14.7)
[2024-06-23] MEDS: SODIUM CHLORIDE 0.9% IV 500 ML 999 ML IV CONT (09:10)
[2024-06-23] MEDS: PANTOPRAZOLE SODIUM IV 40 MG VIAL 80 MG IV PUSH (09:53)
--- NOTE | 2024-06-23 10:31 | PM.IMHP ---
H&P: [facility] History of Present Illness Date/Time: 06/23/24 10:31 Chief Complaint: bright red blood per rectum Narrative: This is a 83-year-old female with a past medical history significant for aortic valve stenosis, CVA with residual left-sided weakness, hyperlipidemia, hypertension, hypothyroidism, atrial fibrillation on anticoagulation, pulmonary hypertension, and CHF who presented to the emergency room with complaints of blood in her stool. The patient provides the following history. Last night after dinner she went to the bathroom and it was like a faucet turned on . She was having blood per rectum without passage of stool. She denies dizziness, shortness of breath, or chest pain. She feel weak. It appears she was seen by GI on 05/06 for ER follow-up after presenting on 04/26 with complaints of significant rectal bleeding. Her CBC was normal and she did not have associated rectal or abdominal pain. It was felt that her bleeding was likely from hemorrhoids and she was sent home on stool softeners and hemorrhoidal cream with plans for colonoscopy if bleeding persisted. In the emergency room labs were significant for a normal hemoglobin of 13.1, no leukocytosis, potassium 5.1, and creatinine 1.80. It appears she has a history of CKD with creatinine ranging 1.3-1.5. Her vitals were stable with a blood pressure 129/82, heart rate of 70, respiratory rate 18, 99% on room air and afebrile at 97.9. CT abdomen and pelvis was obtained which showed a left adrenal mass unchanged from previous exam, cholelithiasis, left lower lobe lung nodule, and hypodensities in the liver Unchanged from previous exam. There were no signs of appendicitis, diverticulitis, or intestinal obstruction. She was admitted in this setting for GI consultation and evaluation of rectal bleeding. Review of Systems Review of Systems: All systems reviewed & are unremarkable except as noted in HPI and below [facility] Past Medical History Medical History (Updated 06/23/24 @ 13:07 by Dianna Siddiqi APRN) Aortic valve stenosis Mild aortic valve stenosis with a valve area of 1.5 cm2 on echocardiogram in March 2022. 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 Right-sided heart failure Surgical History Surgical History History of appendectomy Open appendectomy History of partial hysterectomy History of right-sided carotid endarterectomy History of thyroidectomy Family History Family History Mother Cerebrovascular accident Hypertension Social History Social History (Updated 06/23/24 @ 13:15 by Dianna Siddiqi APRN) Social History: Surrogate decision-maker: Lorne carvajal Mateo Grace, daughter and son. CODE STATUS: She is okay with CPR and medications but does not wish to be intubated. Modified code, updated. Smoking packs per day: 2 Smoking cigarettes per day: 40.0 Years smoked: 50 Smoking pack-years: 100.00 Smoking status: Former smoker Tobacco type: cigarettes Smoking end date: 06/08/20 Alcohol intake: never Substance use: never Substance use type: does not use Do You Feel Safe in your Home?: Yes Lack of Transportation: No Lack of Food: Never True Current Housing: I Have Housing Concerned About Future Housing: No Difficulty Paying Gas/Electric Bills: No Difficulty Paying for Meds: No Currently Unemployed: No Education: High School Diploma/GED Difficulty w/ Childcare or Family Care: No Additional living arrangements comments: Assisted living at [facility]. Additional occupation/education comments: Retired. Spiritual care concerns: No Meds Home Medications and Allergies Home Medications Medication Instructions Recorded Confirmed Type apixaban 2.5 mg tablet (Eliquis) 2.5 mg BID 07/03/21 06/23/24 History atorvastatin 80 mg tablet 80 mg PO DAILY 07/03/21 06/23/24 History amlodipine 5 mg tablet (Norvasc) 5 mg PO QAM 1 month #30 tabs 03/15/23 06/23/24 Rx empagliflozin 10 mg tablet 10 mg PO DAILY 1 month #30 tabs 03/15/23 06/23/24 Rx (Jardiance) spironolactone 25 mg tablet 25 mg PO DAILY 1 month #30 tabs 03/15/23 06/23/24 Rx (Aldactone) metoprolol succinate 50 mg 50 mg PO DAILY 10/30/23 06/23/24 History tablet,extended release 24 hr docusate sodium 100 mg capsule 100 mg PO BID #14 caps 04/26/24 06/23/24 Rx albuterol sulfate 90 mcg/actuation 2 puff inhalation Q4H PRN 06/23/24 06/23/24 History aerosol inhaler Shortness Of Breath fluoxetine 20 mg capsule 20 mg PO DAILY 06/23/24 06/23/24 History glimepiride 2 mg tablet 2 mg PO DAILY 06/23/24 06/23/24 History levothyroxine 50 mcg tablet 50 mcg PO DAILY 06/23/24 06/23/24 History metformin 500 mg tablet,extended 500 mg PO DAILY 06/23/24 06/23/24 History release 24 hr Allergies Allergy/AdvReac Type Severity Reaction Status Date / Time No Known Drug Allergies Allergy Unknown Unknown Verified 06/23/24 07:57 Vital Signs Vital Signs - 24 hr 06/23/24 07:50 06/23/24 09:10 06/23/24 09:31 Temperature 97.9 F Pulse Rate 70 62 63 Respiratory Rate 18 18 20 Blood Pressure 129/82 139/71 131/85 Pulse Oximetry 99 95 Oxygen Delivery Room Air Exam Narrative: General: appears comfortable, in no acute distress Respiratory: breathing is unlabored with even chest rise/fall, lungs are clear without wheezing, rhonchi, and crackles Cardiovascular: Rate and rhythm regular, normal s1s2, no murmur Abdomen: Soft, round, non-tender, active bowel sounds Extremities: No cyanosis, edema, clubbing. Pulses 2/2 Neuro: A&O x 4 Skin: Warm, dry, intact H&P: Results Labs Labs: Short CBC 06/23/24 Range/Units 08:12 WBC 6.7 (4.5-10.0) K/mm3 Hgb 13.1 (12.0-15.0) g/dL Hct 40.5 (37.0-47.0) % Plt Count 164 (150-375) k/mm3 [facility] 06/23/24 08:12 Sodium 137 Potassium 5.1 H Chloride 106 Carbon Dioxide 22 BUN 37 H Creatinine 1.80 H Glucose 81 Calcium 9.5 Liver Function 06/23/24 Range/Units 08:12 Total Bilirubin 0.6 (0.2-1.3) mg/dL AST 28 (14-36) U/L ALT 14 (6-35) U/L Alkaline Phosphatase 89 (38-126) U/L Albumin 4.5 (3.5-5.1) g/dL Assessment and Plan Assessment and plan (1) BRBPR (bright red blood per rectum): Code(s): K62.5 - Hemorrhage of anus and rectum Status: Acute Assessment and Plan: Reports of rectal bleeding without passage of stool. This is a recurrent issue. She is on Xarelto for a-fib. She reports weakness. Given the recurrence of GI bleeding I did mention speaking with her clinical aide, Dr Gan about a watchman device. Hemoglobin is stable at 13.1 g/dl Q 6 H/h x 2 occurrence Clear liquid diet, NPO at midnight Protonix 40 mg daily Holding Xarelto, SCD for DVT Tele ordered GI consulted, recs appreciated. Per patient, planning for colonoscopy 06/24 (2) Internal hemorrhoid: Code(s): K64.8 - Other hemorrhoids Status: Acute Assessment and Plan: She had a formed, brown soft stool this morning continue with stool softeners no straining for bowel movements and do not remain on the toilet for prolonged periods of time (3) Atrial fibrillation: Code(s): I48.91 - Unspecified atrial fibrillation Status: Acute Assessment and Plan: Continue with metoprolol succinate 50 mg daily, Xarelto on hold Monitored on tele. Rate controlled a-fib with rates in the 60-70 bpm (4) Diastolic heart failure: Code(s): I50.30 - Unspecified diastolic (congestive) heart failure Status: Acute Assessment and Plan: ECHO from 03/2023 with left ventricular systolic function of 60-65%, abnormal diastolic dysfunction, severe pulmonary HTN Pa pressure 77 mmHg Appears euvolemic, in fact she looks a little dry on exam Hold spironolactone given minimal PRANAY and possibility of GI bleed. If blood pressures remain stable will resume Continue empagliflozin, atorvastatin, and metoprolol (5) Diabetes: Code(s): E11.9 - Type 2 diabetes mellitus without complications Status: Acute Assessment and Plan: Hgb A1C 7.7% last year on Metformin 500 mg daily, glimepiride 2 mg daily Holding oral agents given hospitalization and only clear liquid diet Ac/HS accu checks, hypoglycemia protocol Low dose SSI Repeat A1C (6) PRANAY (acute kidney injury): Code(s): N17.9 - Acute kidney failure, unspecified Status: Acute Assessment and Plan: Creatinine historically runs 1.3-1.5 mg/dL. Creatinine 1.8 on admission. BMP daily Clear liquids today Will give NS at 50 ml per hour Quality VTE Prophylaxis VTE prophylaxis: mechanical ordered Hospitalist [facility] Advance Care Plan I have confirmed that the patient's Advanced Care Plan is present, code status is documented, or surrogate decision maker is listed in patient medical record.: Yes Medication Reconciliation I have utilized all available resources to obtain, update and review the patients current medications (includes all prescriptions, OTC, herbals, cannabis, and nutritional supplements).: Yes
--- NOTE | 2024-06-23 11:57 | WPDGICN ---
Assessment and Plan Assessment and plan (1) BRBPR (bright red blood per rectum): Code(s): K62.5 - Hemorrhage of anus and rectum Status: Acute Assessment and Plan: patient is worried about it, she was in the office recently for similar problem. probably is perianal source because h/h is stable but will assess with colonoscopy tomorrow, hold eliquis today noted diverticulosis in CT scan (2) On continuous oral anticoagulation: Code(s): Z79.01 - termite treater (current) use of anticoagulants Status: Acute Assessment and Plan: on hold now (3) Diabetes: Code(s): E11.9 - Type 2 diabetes mellitus without complications Status: Acute (4) Acute on chronic kidney failure: Code(s): N17.9 - Acute kidney failure, unspecified; N18.9 - Chronic kidney disease, unspecified Status: Acute Assessment and Plan: mild elevated creatinine monitor (5) Atrial fibrillation: Code(s): I48.91 - Unspecified atrial fibrillation Status: Acute (6) Aortic valve stenosis: Code(s): I35.0 - Nonrheumatic aortic (valve) stenosis Status: Acute GI Consult Note Consult date/time: 06/23/24 11:57 Reason for consult: rectal bleeding HPI: Moriah Grace is a 83 year old female with history of aortic valve stenosis, CVA with residual left-sided weakness, hyperlipidemia, hypertension, hypothyroidism, atrial fibrillation on anticoagulation, pulmonary hypertension, and CHF here with blood in her stool. In fact she was in the office last month with similar problem. She says that once again had bleeding like a faucet turned on . Bleeding occurred without bowel movements and was not associated with any rectal or abdominal pain. Blood work with hemoglobin of 13.1, no leukocytosis, potassium 5.1, and creatinine 1.80 (CKD with creatinine ranging 1.3-1.5). Stable vitals. CT abdomen and pelvis with diverticulosis, cholelithiasis, unchanged adrenal mass. Her last colonoscopy more than 5 years ago. Review of Systems Constitutional: Constitutional: Denies headache(s) and Denies weakness Eyes: Eyes: Denies blurry vision ENT: Reports Normal hearing present, Denies headache(s) and Denies neck pain Cardiovascular: Cardiovascular: Denies chest pain and Denies dyspnea Respiratory: Respiratory: Denies dyspnea Gastrointestinal: Gastrointestinal: Reports no additional gastrointestinal complaints Genitourinary: Genitourinary: Denies dysuria Musculoskeletal: Musculoskeletal: Denies neck pain Integumentary/Breasts: Skin/Breast: Denies dry skin Neurologic: Reports Normal hearing present, Denies headache(s) and Denies weakness Psychiatric: Psychiatric: Denies anxiety Endocrine: Endocrine: Denies change in body appearance Hematologic/Lymphatic: Hematologic/Lymphatic: Denies easy bleeding Allergic/Immunologic: Allergic/Immunologic: Denies urticaria PMFSH Past Medical History Medical History (Updated 06/23/24 @ 14:33 by Damion Moreno MD) Acute on chronic kidney failure Aortic valve stenosis Mild aortic valve stenosis with a valve area of 1.5 cm2 on echocardiogram in March 2022. 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 Right-sided heart failure Surgical History Surgical History History of appendectomy Open appendectomy History of partial hysterectomy History of right-sided carotid endarterectomy History of thyroidectomy Family History Family History Mother Cerebrovascular accident Hypertension Social History Social History (Updated 06/23/24 @ 13:15 by Dianna Siddiqi APRN) Social History: Surrogate decision-maker: Lorne Grace, daughter and son. CODE STATUS: She is okay with CPR and medications but does not wish to be intubated. Modified code, updated. Smoking packs per day: 2 Smoking cigarettes per day: 40.0 Years smoked: 50 Smoking pack-years: 100.00 Smoking status: Former smoker Tobacco type: cigarettes Smoking end date: 06/08/20 Alcohol intake: never Substance use: never Substance use type: does not use Do You Feel Safe in your Home?: Yes Lack of Transportation: No Lack of Food: Never True Current Housing: I Have Housing Concerned About Future Housing: No Difficulty Paying Gas/Electric Bills: No Difficulty Paying for Meds: No Currently Unemployed: No Education: High School Diploma/GED Difficulty w/ Childcare or Family Care: No Additional living arrangements comments: Assisted living at [facility]. Additional occupation/education comments: Retired. Spiritual care concerns: No Meds Home Medications and Allergies Home Medications Medication Instructions Recorded Confirmed Type apixaban 2.5 mg tablet (Eliquis) 2.5 mg BID 07/03/21 06/23/24 History atorvastatin 80 mg tablet 80 mg PO DAILY 07/03/21 06/23/24 History amlodipine 5 mg tablet (Norvasc) 5 mg PO QAM 1 month #30 tabs 03/15/23 06/23/24 Rx empagliflozin 10 mg tablet 10 mg PO DAILY 1 month #30 tabs 03/15/23 06/23/24 Rx (Jardiance) spironolactone 25 mg tablet 25 mg PO DAILY 1 month #30 tabs 03/15/23 06/23/24 Rx (Aldactone) metoprolol succinate 50 mg 50 mg PO DAILY 10/30/23 06/23/24 History tablet,extended release 24 hr docusate sodium 100 mg capsule 100 mg PO BID #14 caps 04/26/24 06/23/24 Rx albuterol sulfate 90 mcg/actuation 2 puff inhalation Q4H PRN 06/23/24 06/23/24 History aerosol inhaler Shortness Of Breath fluoxetine 20 mg capsule 20 mg PO DAILY 06/23/24 06/23/24 History glimepiride 2 mg tablet 2 mg PO DAILY 06/23/24 06/23/24 History levothyroxine 50 mcg tablet 50 mcg PO DAILY 06/23/24 06/23/24 History metformin 500 mg tablet,extended 500 mg PO DAILY 06/23/24 06/23/24 History release 24 hr Allergies Allergy/AdvReac Type Severity Reaction Status Date / Time No Known Drug Allergies Allergy Unknown Unknown Verified 06/23/24 07:57 Vital Signs Vital Signs - 24 hr 06/23/24 07:50 06/23/24 09:10 06/23/24 09:31 Temperature 97.9 F Pulse Rate 70 62 63 Respiratory Rate 18 18 20 Blood Pressure 129/82 139/71 131/85 Pulse Oximetry 99 95 Oxygen Delivery Room Air Exam Const: General: comfortable and no acute distress HENMT: Face/Nose/Sinus: Normal nares present Eyes: General: appearance normal, both eyes and all related structures Neck: Neck: supple Resp: Auscultation: clear to auscultation bilaterally Cardio: Rate: regular rate Rhythm: regular rhythm GI: Inspection: non-distended GI Palp: Yes Soft to palpation and No Tenderness to palpation present (GI) Auscultation: normal bowel sounds Skin: General skin exam: normal color Neuro: Speech: normal speech Motor exam (neuro): 5/5 motor strength present throughout Extrem: General: normal to inspection Psych: Mental Status: mental status grossly normal Results Labs 06/23/24 13:59 06/23/24 08:12 Labs: Short CBC 06/23/24 Range/Units 08:12 WBC 6.7 (4.5-10.0) K/mm3 Hgb 13.1 (12.0-15.0) g/dL Hct 40.5 (37.0-47.0) % Plt Count 164 (150-375) k/mm3 BMP 06/23/24 08:12 Sodium 137 Potassium 5.1 H Chloride 106 Carbon Dioxide 22 BUN 37 H Creatinine 1.80 H Glucose 81 Calcium 9.5 Liver Function 06/23/24 Range/Units 08:12 Total Bilirubin 0.6 (0.2-1.3) mg/dL AST 28 (14-36) U/L ALT 14 (6-35) U/L Alkaline Phosphatase 89 (38-126) U/L Albumin 4.5 (3.5-5.1) g/dL
[2024-06-23 14:07] LABS: Hematocrit 40.5 % (37.0-47.0); Hemoglobin 13.3 g/dL (12.0-15.0)
[2024-06-23] MEDS: SODIUM CHLORIDE 0.9% IV 1,000 ML 50 ML IV CONT (15:23)
[2024-06-23] MEDS: polyethylene glycoL 3350 238 GM BOTTLE PO (15:24)
[2024-06-23] MEDS: DOCUSATE SODIUM 100 MG CAPSULE PO (15:24)
[2024-06-23 16:37] LABS: Glucose Point of Care 125 mg/dl (65-105)
[2024-06-23] MEDS: BISACODYL 5 MG TABLET EC 20 MG PO (18:06)
[2024-06-23 19:11] LABS: Add Urine Microscopic? YES; Appearance Urine Cloudy (Clear); Bacteria Urine 4+ /hpf; Bilirubin Urine Negative (Negative); Blood Urine Negative (Negative); Color Urine Yellow (Yellow); Glucose Urine UA 3+ mg/dL (Negative); Ketones Urine Negative (Negative); Leukocyte Esterase Ur Trace LEU/UL (Negative); Nitrate Urine Negative (Negative); Non Pathogenic Casts 0-2; Protein Urine 2+ mg/dL (Negative); RBC Urine 0-2 /hpf (0-2); Specific Grav Ur 1.015 (1.001-1.035); Squamous Epithelial Cell Urine None Seen /hpf (Few); Urobilinogen Urine 0.2 mg/dL (<2.0); WBC Urine 21-50 /hpf (0-3); pH Urine 5.5 (5.0-9.0)
[2024-06-23 20:17] LABS: Glucose Point of Care 145 mg/dl (65-105)
[2024-06-23] MEDS: MAGNESIUM CITRATE 300 ML BTL PO (23:19)
[2024-06-24] VITALS (12 sets, daily range): BP systolic 102–165; BP diastolic 61–84; PULSE 61–94; RESP 16–21; TEMP 36–36.6; O2SAT 95–98
--- NOTE | 2024-06-24 00:02 | PC.NURSE ---
PT ON BOWEL PREP FOR COLONOSCOPY TOMORROW. MIRALAX GATORADE MIXTURE STARTED ON DAY SHIFT BY LEEANNE SCHWARTZ. PT HAS BEEN ENCOURAGED TO KEEP DRINKING BOWEL PREP BY THIS RN. PT WAS ORIGINALLY TOLERATING BOWEL PREP WELL BUT HAS BEEN UNABLE TO SINCE AROUND 2200. PT HAS CONTINUOUSLY BEEN ENCOURAGED TO INTAKE BOWEL PREP WITH MINIMUM INTAKE TOLERATED. PT HAS BEEN EDUCATED ON THE IMPORTANCE OF BOWEL PREP FOR HER PROCEDURE TOMORROW. PT STATES SHE UNDERSTANDS THE IMPORTANCE BUT IS UNABLE TO DRINK ANY MORE PREP AT THIS TIME. PT HAVING BRIGHT YELLOW/ GREEN LIQUID BOWEL MOVEMENTS. WILL UPDATE GI IN THE AM WITH BOWEL PREP STATUS.
[2024-06-24 06:01] LABS: Basophils Percent Auto 0.3 % (0.2-1.2); Eosinophils Absolute Auto 0.1 K/mm3 (0-0.3); Eosinophils Percent Auto 1.1 % (0-4.4); Hematocrit 43.3 % (37.0-47.0); Hemoglobin 13.7 g/dL (12.0-15.0); Immature Granulocyte Absolute 0.07 K/mm3 (0.00-0.031); Immature Granulocyte Percent A 1.1 % (0-0.5); Lymphocytes Absolute Auto 0.78 K/mm3 (0.9-3.2); Lymphocytes Percent Auto 12.3 % (18.3-44.2); Mean Corpuscular HGB Conc 31.6 g/dl (32-36); Mean Corpuscular Hemoglobin 30.4 pg (26-34); Mean Corpuscular Volume 96.2 fl (80-100); Mean Platelet Volume 9.5 fl (7.4-10.4); Neutrophils Absolute Auto 4.4 K/mm3 (1.3-6.7); Neutrophils Percent Auto 70.2 % (45.5-73.1); Platelet Count Result 153 k/mm3 (150-375); Red Cell Distribution Width 12.6 % (11.5-14.5); White Blood Count 6.3 K/mm3 (4.5-10.0)
[2024-06-24 06:21] LABS: Alanine Aminotransferase 16 U/L (6-35); Albumin Level 4.4 g/dL (3.5-5.1); Alkaline Phosphatase 99 U/L (38-126); Anion Gap 9 mmol/L (4-12); Aspartate Amino Transferase 28 U/L (14-36); Bilirubin,Total 0.8 mg/dL (0.2-1.3); Blood Urea Nitrogen 22 mg/dL (7-17); Calcium 9.3 mg/dL (8.4-10.2); Carbon Dioxide 21 mmol/L (22-30); Chloride 107 mmol/L (98-107); Estimated CRCL calculation 20 ml/min; Estimated Glomerular Filt Rate 31; Glucose 140 mg/dL (65-110); Potassium 4.7 mmol/L (3.4-5.0); Sodium 137 mmol/L (137-145)
[2024-06-24 06:39] LABS: Hemoglobin A1C 6.2 % (<5.7)
[2024-06-24 08:18] LABS: Glucose Point of Care 123 mg/dl (65-105)
[2024-06-24] MEDS: ATORVASTATIN 40 MG TABLET 80 MG PO (09:12)
[2024-06-24] MEDS: amLODIPine BESYLATE 5 MG TABLET PO (09:12)
[2024-06-24] MEDS: PANTOPRAZOLE 40 MG TABLET PO (09:12)
[2024-06-24] MEDS: METOPROLOL SUCCINATE EXT REL 50 MG TABCR PO (09:12)
[2024-06-24] MEDS: DOCUSATE SODIUM 100 MG CAPSULE PO ×2 (09:12→16:10)
[2024-06-24] MEDS: FLUoxetine HCL 20 MG CAPSULE PO (09:12)
--- NOTE | 2024-06-24 10:43 | PC.NURSE ---
To GI Lab per wheelchair. No complaints voiced.
--- NOTE | 2024-06-24 11:10 | P.PNAN_ITS ---
Anes - Initial Pre Proc Eval Procedure: Operation Date: 06/24/24 16:00 Proposed Procedures p Colonoscopy - Daimon Moreno MD Date/Time: 06/24/24 11:10 Surgeon: Ok Anthony MD Pre Op Diagnosis: bright red blood per rectum Patient Data Age: 83 Gender: F Height: 1.52 m Weight: 63 kg Last Vital Signs Temp 36.0 C L 06/24/24 10:56 Pulse 82 06/24/24 10:56 Resp 18 06/24/24 10:56 BP 165/70 H 06/24/24 10:56 Pulse Ox 95 06/24/24 10:56 O2 Del Method Room Air 06/24/24 10:56 Allergies Allergy/AdvReac Type Severity Reaction Status Date / Time No Known Drug Allergies Allergy Unknown Unknown Verified 06/24/24 10:55 Home Medications Medication Instructions Recorded Confirmed Type apixaban 2.5 mg tablet (Eliquis) 2.5 mg BID 07/03/21 06/23/24 History atorvastatin 80 mg tablet 80 mg PO DAILY 07/03/21 06/23/24 History amlodipine 5 mg tablet (Norvasc) 5 mg PO QAM 1 month #30 tabs 03/15/23 06/23/24 Rx empagliflozin 10 mg tablet 10 mg PO DAILY 1 month #30 tabs 03/15/23 06/23/24 Rx (Jardiance) spironolactone 25 mg tablet 25 mg PO DAILY 1 month #30 tabs 03/15/23 06/23/24 Rx (Aldactone) metoprolol succinate 50 mg 50 mg PO DAILY 10/30/23 06/23/24 History tablet,extended release 24 hr docusate sodium 100 mg capsule 100 mg PO BID #14 caps 04/26/24 06/23/24 Rx albuterol sulfate 90 mcg/actuation 2 puff inhalation Q4H PRN 06/23/24 06/23/24 History aerosol inhaler Shortness Of Breath fluoxetine 20 mg capsule 20 mg PO DAILY 06/23/24 06/23/24 History glimepiride 2 mg tablet 2 mg PO DAILY 06/23/24 06/23/24 History levothyroxine 50 mcg tablet 50 mcg PO DAILY 06/23/24 06/23/24 History metformin 500 mg tablet,extended 500 mg PO DAILY 06/23/24 06/23/24 History release 24 hr Laboratory Tests 06/23/24 06/23/24 06/23/24 13:59 16:25 18:22 WBC RBC Hgb 13.3 g/dL (12.0-15.0) Hct 40.5 % (37.0-47.0) MCV MCH MCHC RDW Plt Count MPV Immature Gran % (Auto) Neut % (Auto) Lymph % (Auto) [place] % (Auto) Eos % (Auto) Baso % (Auto) Lymph # (Auto) [place] # (Auto) Eos # (Auto) Baso # (Auto) Abs Immat Gran (auto) Absolute Neuts (auto) Absolute Nucleated RBC Nucleated RBC % Sodium Potassium Chloride Carbon Dioxide Anion Gap BUN Creatinine Estim Creat Clear Calc Estimated GFR Glucose POC Capillary Glucose 125 H mg/dl (65-105) Hemoglobin A1c Calcium Total Bilirubin AST ALT Alkaline Phosphatase Total Protein Albumin Urine Color Yellow (Yellow) Urine Appearance Cloudy H (Clear) Urine pH 5.5 (5.0-9.0) Ur Specific [place] 1.015 (1.001-1.035) Urine Protein 2+ H mg/dL (Negative) Urine Glucose (UA) 3+ H mg/dL (Negative) Urine Ketones Negative mg/dL (Negative) Ur Blood (Man) Negative (Negative) Urine Nitrate Negative (Negative) Urine Bilirubin Negative (Negative) Urine Urobilinogen 0.2 mg/dL (<2.0) Leukocyte Esterase Rfl Trace H MERRICK/UL (Negative) Urine RBC 0-2 /hpf (0-2) Urine WBC 21-50 H /hpf (0-3) Ur Squamous Epith Cells None seen /hpf (Few) Urine Bacteria 4+ /hpf Urine Casts 0-2 06/23/24 06/24/24 06/24/24 20:13 05:37 07:38 WBC 6.3 K/mm3 (4.5-10.0) RBC 4.50 M/mm3 (4.2-5.4) Hgb 13.7 g/dL (12.0-15.0) Hct 43.3 % (37.0-47.0) MCV 96.2 fl (80-100) MCH 30.4 pg (26-34) MCHC 31.6 L g/dl (32-36) RDW 12.6 % (11.5-14.5) Plt Count 153 k/mm3 (150-375) MPV 9.5 fl (7.4-10.4) Immature Gran % (Auto) 1.1 H % (0-0.5) Neut % (Auto) 70.2 % (45.5-73.1) Lymph % (Auto) 12.3 L % (18.3-44.2) [place] % (Auto) 15.0 H % (2.6-8.5) Eos % (Auto) 1.1 % (0-4.4) Baso % (Auto) 0.3 % (0.2-1.2) Lymph # (Auto) 0.78 L K/mm3 (0.9-3.2) [place] # (Auto) 1.0 H K/mm3 (0.1-0.6) Eos # (Auto) 0.1 K/mm3 (0-0.3) Baso # (Auto) 0.0 K/mm3 (0.0-0.1) Abs Immat Gran (auto) 0.07 H K/mm3 (0.00-0.031) Absolute Neuts (auto) 4.4 K/mm3 (1.3-6.7) Absolute Nucleated RBC 0.000 K/mm3 (0.0-0.012) Nucleated RBC % 0.0 % (0.0-0.2) Sodium 137 mmol/L (137-145) Potassium 4.7 mmol/L (3.4-5.0) Chloride 107 mmol/L (98-107) Carbon Dioxide 21 L mmol/L (22-30) Anion Gap 9 mmol/L (4-12) BUN 22 H D mg/dL (7-17) Creatinine 1.60 H mg/dL (0.7-1.0) Estim Creat Clear Calc 20 ml/min Estimated GFR 31 L (59 - ) Glucose 140 H mg/dL (65-110) POC Capillary Glucose 145 H mg/dl 123 H mg/dl (65-105) (65-105) Hemoglobin A1c 6.2 H % (<5.7) Calcium 9.3 mg/dL (8.4-10.2) Total Bilirubin 0.8 mg/dL (0.2-1.3) AST 28 U/L (14-36) ALT 16 U/L (6-35) Alkaline Phosphatase 99 U/L (38-126) Total Protein 8.0 g/dL (6.3-8.2) Albumin 4.4 g/dL (3.5-5.1) Urine Color Urine Appearance Urine pH Ur Specific [place] Urine Protein Urine Glucose (UA) Urine Ketones Ur Blood (Man) Urine Nitrate Urine Bilirubin Urine Urobilinogen Leukocyte Esterase Rfl Urine RBC Urine WBC Ur Squamous Epith Cells Urine Bacteria Urine Casts Patient hx anesthesia problems: none Family hx anesthesia problems: none Results Review: All pre-operative results and documents have been reviewed as part of the pre- operative evaluation. [facility] Past Medical History Medical History Acute on chronic kidney failure Aortic valve stenosis Mild aortic valve stenosis with a valve area of 1.5 cm2 on echocardiogram in March 2022. 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 Right-sided heart failure Surgical History Surgical History History of appendectomy Open appendectomy History of partial hysterectomy History of right-sided carotid endarterectomy History of thyroidectomy Family History Family History Mother Cerebrovascular accident Hypertension Social History Social History Social History: Surrogate decision-maker: Lorne wei Mateo Grace, daughter and son. CODE STATUS: She is okay with CPR and medications but does not wish to be intubated. Modified code, updated. Smoking packs per day: 2 Smoking cigarettes per day: 40.0 Years smoked: 50 Smoking pack-years: 100.00 Smoking status: Former smoker Tobacco type: cigarettes Smoking end date: 06/08/20 Alcohol intake: never Substance use: never Substance use type: does not use Do You Feel Safe in your Home?: Yes Lack of Transportation: No Lack of Food: Never True Current Housing: I Have Housing Concerned About Future Housing: No Difficulty Paying Gas/Electric Bills: No Difficulty Paying for Meds: No Currently Unemployed: No Education: High School Diploma/GED Difficulty w/ Childcare or Family Care: No Additional living arrangements comments: Assisted living at [facility]. Additional occupation/education comments: Retired. Spiritual care concerns: No Anes - Eval Final PreProcedure Day of Procedure 06/24/24 11:10 Patient weight: overweight Heart: irregular rhythm Lungs: decreased breath sounds Airway: Mallampati scale class II Neurological: alert and oriented Last oral intake: >/= 8 hours ASA classification: IV Emergent: no Anesthetic plan: proceed Anesthesia type and monitoring: general GIVS Results Review: All pre-operative results and documents have been reviewed as part of the pre- operative evaluation. Informed Consent: The patient's anesthetic plan and its attendant risks and benefits were discussed with the patient/family/POA. Questions were solicited and answers provided to the satisfaction of the patient/family/POA.
[2024-06-24] MEDS: LACTATED RINGERS 1,000 ML 150 ML IV CONT (11:27)
[2024-06-24 11:38] LABS: Glucose Point of Care 129 mg/dl (65-105)
--- NOTE | 2024-06-24 12:03 | PC.NURSE ---
Return to room per stretcher from GI Lab.
[2024-06-24 12:21] LABS: Glucose Point of Care 113 mg/dl (65-105)
[2024-06-24] MEDS: SODIUM CHLORIDE 0.9% IV 1,000 ML 50 ML IV CONT (13:20)
[2024-06-24 14:21] LABS: Hematocrit 42.7 % (37.0-47.0)
--- NOTE | 2024-06-24 15:18 | P.DS_ITS ---
DS: Admitting Diagnosis Discharge Date 06/24 Admitting Diagnosis rectal bleeding DS: Discharge Diagnosis Discharge Diagnosis (1) BRBPR (bright red blood per rectum): Code(s): K62.5 - Hemorrhage of anus and rectum Status: Acute Assessment and Plan: Reports of rectal bleeding without passage of stool. This is a recurrent issue. She is on Xarelto for a-fib. She reports weakness. Given the recurrence of GI bleeding I did mention speaking with her shot fireman, Dr Gan about a watchman device. * Hemoglobin is stable at 13.1 g/dl * Q 6 H/h x 2 occurrence * Clear liquid diet, NPO at midnight * Protonix 40 mg daily * Holding Xarelto, SCD for DVT * Tele ordered * GI consulted, recs appreciated. Per patient, planning for colonoscopy 06/24 (2) Internal hemorrhoid: Code(s): K64.8 - Other hemorrhoids Status: Acute Assessment and Plan: She had a formed, brown soft stool this morning * continue with stool softeners * no straining for bowel movements and do not remain on the toilet for prolonged periods of time (3) Atrial fibrillation: Code(s): I48.91 - Unspecified atrial fibrillation Status: Acute Assessment and Plan: Continue with metoprolol succinate 50 mg daily, Xarelto on hold * Monitored on tele. Rate controlled a-fib with rates in the 60-70 bpm (4) Diastolic heart failure: Code(s): I50.30 - Unspecified diastolic (congestive) heart failure Status: Acute Assessment and Plan: ECHO from 03/2023 with left ventricular systolic function of 60-65%, abnormal diastolic dysfunction, severe pulmonary HTN Pa pressure 77 mmHg * Appears euvolemic, in fact she looks a little dry on exam * Hold spironolactone given minimal PRANAY and possibility of GI bleed. If blood pressures remain stable will resume * Continue empagliflozin, atorvastatin, and metoprolol (5) Diabetes: Code(s): E11.9 - Type 2 diabetes mellitus without complications Status: Acute Assessment and Plan: Hgb A1C 7.7% last year on Metformin 500 mg daily, glimepiride 2 mg daily * Holding oral agents given hospitalization and only clear liquid diet * Ac/HS accu checks, hypoglycemia protocol * Low dose SSI * Repeat A1C (6) PRANAY (acute kidney injury): Code(s): N17.9 - Acute kidney failure, unspecified Status: Acute Assessment and Plan: Creatinine historically runs 1.3-1.5 mg/dL. Creatinine 1.8 on admission. * BMP daily * Clear liquids today * Will give NS at 50 ml per hour DS: Summary Hospital Course Reason for hospitalization: Rectal bleeding Hospital Course: This is a 83-year-old female with a past medical history significant for aortic valve stenosis, CVA with residual left-sided weakness, hyperlipidemia, hypertension, hypothyroidism, atrial fibrillation on anticoagulation, pulmonary hypertension, and CHF who presented to the emergency room with complaints of blood in her stool. The patient provides the following history. Last night after dinner she went to the bathroom and it was like a faucet turned on . She was having blood per rectum without passage of stool. She denies dizziness, shortness of breath, or chest pain. She feel weak. It appears she was seen by GI on 05/06 for ER follow-up after presenting on 04/26 with complaints of significant rectal bleeding. Her CBC was normal and she did not have associated rectal or abdominal pain. It was felt that her bleeding was likely from hemorrhoids and she was sent home on stool softeners and hemorrhoidal cream with plans for colonoscopy if bleeding persisted. In the emergency room labs were significant for a normal hemoglobin of 13.1, no leukocytosis, potassium 5.1, and creatinine 1.80. It appears she has a history of CKD with creatinine ranging 1.3-1.5. Her vitals were stable with a blood pressure 129/82, heart rate of 70, respiratory rate 18, 99% on room air and afebrile at 97.9. CT abdomen and pelvis was obtained which showed a left adrenal mass unchanged from previous exam, cholelithiasis, left lower lobe lung nodule, and hypodensities in the liver Unchanged from previous exam. There were no signs of appendicitis, diverticulitis, or intestinal obstruction. She was admitted in this setting for GI consultation and evaluation of rectal bleeding. GI was consulted Edward for colonoscopy. Findings include diverticulosis, polyps, and internal hemorrhoids. Biopsies were taken. There was no active bleeding reported. GI is okay with her resuming Eliquis. No repeat colonoscopy necessary. Her hemoglobin remained stable during her admission she had no recurrence of rectal bleeding. Overall she did well was discharged home in stable condition with PCP follow-up. She was instructed to speak with her shot fireman about possible Watchman device given her recurrent hemorrhoidal bleeding with concurrent use of Eliquis. Time Spent with Patient Time attestation: Total time spent providing and/or coordinating discharge services: 77 Exam Narrative: General: appears comfortable, in no acute distress Respiratory: breathing is unlabored with even chest rise/fall, lungs are clear without wheezing, rhonchi, and crackles Cardiovascular: Rate and rhythm regular, normal s1s2, no murmur Abdomen: Soft, round, non-tender, active bowel sounds Extremities: No cyanosis, edema, clubbing. Pulses 2/2 Neuro: A&O x 4 Skin: Warm, dry, intact DS: Data Data Completed and Pending Pending studies at discharge: Pending at discharge 06/24/24 11:25 Surgical [PTH] Routine Labs on day of discharge: Labs from last 24 hours 06/24/24 06/24/24 06/24/24 14:09 12:18 11:34 WBC RBC Hgb 14.0 Hct 42.7 MCV MCH MCHC RDW Plt Count MPV Immature Gran % (Auto) Neut % (Auto) Lymph % (Auto) Nicol[place] % (Auto) Eos % (Auto) Baso % (Auto) Lymph # (Auto) [place] # (Auto) Eos # (Auto) Baso # (Auto) Abs Immat Gran (auto) Absolute Neuts (auto) Absolute Nucleated RBC Nucleated RBC % Sodium Potassium Chloride Carbon Dioxide Anion Gap BUN Creatinine Estim Creat Clear Calc Estimated GFR Glucose POC Capillary Glucose 113 H 129 H Hemoglobin A1c Calcium Total Bilirubin AST ALT Alkaline Phosphatase Total Protein Albumin Urine Color Urine Appearance Urine pH Ur Specific [place] Urine Protein Urine Glucose (UA) Urine Ketones Ur Blood (Man) Urine Nitrate Urine Bilirubin Urine Urobilinogen Leukocyte Esterase Rfl Urine RBC Urine WBC Ur Squamous Epith Cells Urine Bacteria Urine Casts 06/24/24 06/24/24 06/23/24 07:38 05:37 20:13 WBC 6.3 RBC 4.50 Hgb 13.7 Hct 43.3 MCV 96.2 MCH 30.4 MCHC 31.6 L RDW 12.6 Plt Count 153 MPV 9.5 Immature Gran % (Auto) 1.1 H Neut % (Auto) 70.2 Lymph % (Auto) 12.3 L Nicollet % (Auto) 15.0 H Eos % (Auto) 1.1 Baso % (Auto) 0.3 Lymph # (Auto) 0.78 L Nicol[place] # (Auto) 1.0 H Eos # (Auto) 0.1 Baso # (Auto) 0.0 Abs Immat Gran (auto) 0.07 H Absolute Neuts (auto) 4.4 Absolute Nucleated RBC 0.000 Nucleated RBC % 0.0 Sodium 137 Potassium 4.7 Chloride 107 Carbon Dioxide 21 L Anion Gap 9 BUN 22 H D Creatinine 1.60 H Estim Creat Clear Calc 20 Estimated GFR 31 L Glucose 140 H POC Capillary Glucose 123 H 145 H Hemoglobin A1c 6.2 H Calcium 9.3 Total Bilirubin 0.8 AST 28 ALT 16 Alkaline Phosphatase 99 Total Protein 8.0 Albumin 4.4 Urine Color Urine Appearance Urine pH Ur Specific [place] Urine Protein Urine Glucose (UA) Urine Ketones Ur Blood (Man) Urine Nitrate Urine Bilirubin Urine Urobilinogen Leukocyte Esterase Rfl Urine RBC Urine WBC Ur Squamous Epith Cells Urine Bacteria Urine Casts 06/23/24 06/23/24 18:22 16:25 WBC RBC Hgb Hct MCV MCH MCHC RDW Plt Count MPV Immature Gran % (Auto) Neut % (Auto) Lymph % (Auto) Nicol[place] % (Auto) Eos % (Auto) Baso % (Auto) Lymph # (Auto) Nicol[place] # (Auto) Eos # (Auto) Baso # (Auto) Abs Immat Gran (auto) Absolute Neuts (auto) Absolute Nucleated RBC Nucleated RBC % Sodium Potassium Chloride Carbon Dioxide Anion Gap BUN Creatinine Estim Creat Clear Calc Estimated GFR Glucose POC Capillary Glucose 125 H Hemoglobin A1c Calcium Total Bilirubin AST ALT Alkaline Phosphatase Total Protein Albumin Urine Color Yellow Urine Appearance Cloudy H Urine pH 5.5 Ur Specific [place] 1.015 Urine Protein 2+ H Urine Glucose (UA) 3+ H Urine Ketones Negative Ur Blood (Man) Negative Urine Nitrate Negative Urine Bilirubin Negative Urine Urobilinogen 0.2 Leukocyte Esterase Rfl Trace H Urine RBC 0-2 Urine WBC 21-50 H Ur Squamous Epith Cells None seen Urine Bacteria 4+ Urine Casts 0-2 Discharge Plan Discharge Attending physician on discharge: Paramjit Maldonado Discharging Clinician: Dianna Siddiqi Anticipated Discharge Date/Time: 06/24/24 15:12 Patient Disposition: NH Mcfp/Asst Living Activity: january shower Diet: diabetic Discharge Instructions: You were admitted with complaints of rectal bleeding. Your hemoglobin has remained stable. GI took you for a colonoscopy and found polyps, diverticulosis, and external hemorrhoids. The GI office will call you with results of biopsy results. You can resume your Eliquis. It would be recommended to speak with your shot fireman about a possible watchman device. Patient Instructions: Antibiotic Form, Rectal Bleeding (ED), Colonoscopy (DC) Stand Alone Forms: General Discharge Information Follow-up/Referrals: UNKNOWN,DOCTOR [Primary Care Provider] - Discharge Medications: Continued metoprolol succinate 50 mg tablet extended release 24 hr 50 mg PO DAILY atorvastatin 80 mg tablet 80 mg PO DAILY Eliquis 2.5 mg tablet 2.5 mg BID amlodipine [Norvasc] 5 mg Tablet 5 mg PO QAM 30 Days Qty: 30 0RF Jardiance 10 mg Tablet 10 mg PO DAILY 30 Days Qty: 30 0RF spironolactone [Aldactone] 25 mg tablet 25 mg PO DAILY 30 Days Qty: 30 0RF glimepiride 2 mg tablet 2 mg PO DAILY levothyroxine 50 mcg tablet 50 mcg PO DAILY albuterol sulfate 90 mcg/actuation HFA aerosol inhaler 2 puff INHALATION Q4H PRN (Reason: Shortness Of Breath) fluoxetine 20 mg capsule 20 mg PO DAILY metformin 500 mg tablet extended release 24 hr 500 mg PO DAILY docusate sodium 100 mg capsule 100 mg PO BID Qty: 14 0RF Date of admission: 06/23/24 12:17 Primary Care Provider: UNKNOWN,DOCTOR Admitting Provider: Ok Anthony Attending physician on admission: Ok Anthony Condition: Improved Quality VTE Prophylaxis VTE prophylaxis: mechanical ordered
[2024-06-24 16:45] LABS: Glucose Point of Care 157 mg/dl (65-105)
== END 2024-06-24 17:17 ==
LOC: ANHED 09:40 → ANH3MEDSUR 10:24
PROVIDERS: Internal Medicine Gastroenterology; Nurse Practitioner Acute Care; Admitting Provider Hospitalist; Emergency Provider Emergency Medicine; Visit Provider General Practice
PROC: 0DJD8ZZ Inspection of Lower Intestinal Tract, Via Natural or Artificial Opening Endoscopic (ICD-10-PCS; CPT 45378; principal; 2024-06-24 16:00)
DX: K62.5 Hemorrhage of anus and rectum (principal); K64.8 Other hemorrhoids; K64.4 Residual hemorrhoidal skin tags; D12.4 Benign neoplasm of descending colon; K57.30 Diverticulosis of large intestine without perforation or abscess without bleeding; I35.0 Nonrheumatic aortic (valve) stenosis; I27.20 Pulmonary hypertension, unspecified; I48.91 Unspecified atrial fibrillation; I13.0 Hypertensive heart and chronic kidney disease with heart failure and stage 1 through stage 4 chronic kidney disease, or unspecified chronic kidney disease; I50.30 Unspecified diastolic (congestive) heart failure; E11.22 Type 2 diabetes mellitus with diabetic chronic kidney disease; N18.9 Chronic kidney disease, unspecified; N17.9 Acute kidney failure, unspecified; I69.354 Hemiplegia and hemiparesis following cerebral infarction affecting left non-dominant side; E78.5 Hyperlipidemia, unspecified; K80.20 Calculus of gallbladder without cholecystitis without obstruction; E89.0 Postprocedural hypothyroidism; Z87.891 Personal history of nicotine dependence; Z79.51 Long term (current) use of inhaled steroids; Z79.01 Long term (current) use of anticoagulants; Z79.84 Long term (current) use of oral hypoglycemic drugs; Z79.899 Other long term (current) drug therapy
CPT/HCPCS: 45380; 36415; 74176; 80053; 81001; 82948; 83036; 85014; 85018; 85025; 85610; 85730; 86850; 86900; 86901; 87077; 87086; 87186; 88305; 96361; 96374; 99285; A9270; G0378; J2470; J2704; J7030; J7040; J7120

== ENCOUNTER 2024-10-14 10:12 | Emergency (ER) | payer OTHER, SELFPAY ==
--- NOTE | ~2024-10-14 | CT_ITS ---
EXAMINATION: CT abdomen pelvis w con DATE: 10/14/2024 14:54 INDICATION: Bright red blood per rectum TECHNIQUE: Computed tomography (CT) of the abdomen and pelvis was performed with 100 mL Omnipaque-350 intravenous contrast. Automated exposure control and iterative reconstruction technique were employe d. The dose-length product was 258.75 mGy-cm. COMPARISON: 10/06/2024, 06/23/2024 and 06/23/2024 FINDINGS: Moderate cardiomegaly with biatrial enlargement. Atherosclerotic coronary artery calcification. No pe ricardial effusion. Calcified left lower lobe nodule consistent with old granulomatous disease. Again seen are groundglass opacities and septal line thickening at the bilateral lung bases most likely re lated to mild pulmonary edema with differential including less likely pneumonia or chronic interstiti al lung disease. There are few small low-attenuation hepatic cysts the largest in the left hepatic lobe measuring 1.1 cm. Again seen are a few tiny gallstones the dependent aspect of the normal-appearing gallbladder. Th e spleen, pancreas and bilateral adrenal glands are normal. No interval change in several bilateral r enal cysts measuring up to 1.7 cm the lower pole the left kidney. This includes a couple complex prot einaceous/hemorrhagic cysts at the lower pole the left kidney with slightly greater than simple fluid attenuation which is unchanged since the prior noncontrast CT. There is moderate colonic diverticulosis with a sigmoid predominance. There is no adjacent inflammat ory change to suggest diverticulitis. No bowel obstruction. Bladder is normal. The uterus is not iden tified and has likely been surgically resected. No free intraperitoneal gas or fluid. No pathological ly enlarged abdominal or pelvic lymphadenopathy. There is calcified atherosclerosis without hemodynam ically significant stenosis of the normal caliber abdominal aorta and many of the other arteries. Mil d thoracolumbar dextrocurvature with mild to moderate spondylosis. IMPRESSION: 1. Moderate distal colonic diverticulosis. 2. Cardiomegaly with biatrial enlargement. 3. Dependent predominant groundglass opacities and septal line thickening in the bilateral lower lobe s most likely mild pulmonary edema versus less likely pneumonia or chronic lung disease. Reviewed, dictated and finalized at location A. [facility] IMPRESSION: 1. Moderate distal colonic diverticulosis. 2. Cardiomegaly with biatrial enlargement. 3. Dependent predominant groundglass opacities and septal line thickening in th e bilateral lower lobes most likely mild pulmonary edema versus less likely pne umonia or chronic lung disease.
[2024-10-14 10:18] VITALS: BP 142/61; PULSE 65; RESP 18; TEMP 36.5; O2SAT 99
--- OUTSIDE RECORDS SUMMARY | 2024-10-14 11:16 | XMS_ITS | Referral Summary ---
Author Organization [facility] Address [address] [place] [address] Care Team Providers Care Drum Sander Offbearer Name Role Phone Benny Wilkes MD Primary Care Provider [phone] Source Comments [facility],non-owned Affiliates and Associated Physician Practices is amultiple site organization consisting of ambulatory clinics and hospital sitesin [place] and [place]. This disclosure is being madepursuant to the Care Everywhere program and may not contain all information available regarding this patient. Last updated 18.[facility] Allergies No known active allergies Medications * Be aware that medications may not be up to date on this document. Alwaysverify current medications with the patient. Medication Sig Dispensed Refills Start Date End Date Status aspirin EC (ECOTRIN) 81 MG tablet Take 81 mg by mouth once daily. Last dose 02/18/12 Active atorvastatin (LIPITOR) 80 MG tablet Take 1 Tab by mouth once daily. 30 Tab 2 10/07/2014 Active apixaban (ELIQUIS) 5 MG tablet Take 2.5 mg by mouth 2 times daily Active metoprolol succinate XL 24hr (TOPROL XL) 50 MG tablet Take 1 (one) tablet by mouth once daily 30 tablet 3 04/28/2021 Active levothyroxine (SYNTHROID) 125 MCG tablet Take 1 (one) tablet by mouth once daily 30 tablet 2 05/18/2021 Active Active Problems Problem Noted Date Diagnosed Date Left-sided weakness 05/14/2021 Cerebrovascular accident (CV A) due to stenosis of right carotid artery 04/23/2021 Hypertension 03/09/2021 Atrial fibrillation with RVR 03/09/2021 INGRID to first diagonal in 201405/12/2015 HTN (hypertension), benign 05/12/2015 Diabetes type 2, controlled 05/12/2015 Hypercholesterolemia 11/02/2014 CAD (coronary artery disease) Overview (03/09/2021): stenting Resolved Problems Problem Noted Date Diagnosed Date Resolved Date INGRID to diagonal in 201411/02/2014 090 05/2015 HTN 11/02/2014 05/12/2015 Diabetes 11/02/2014 05/12/2015 Thyroid neoplasm 02/23/2012 02/23/2012 Immunizations Name Administration Dates Next Due INFLUENZA VACCINE 06/12/2014 Pneumococcal Pcv13 Conj 05/12/2008 Social History Tobacco Use Types Packs/Day Years Used Date Smoking Tobacco: Former Cigarettes Q uit: 09/03/2005 Smokeless Tobacco: Never Tobacco Cessation:Counseling Given: Yes Alcohol Use Standard Drinks/Week Comments Yes 0 (1 standard drink = 0.6 oz pur e alcohol) 2 glasses of wine/month PHQ-2 Answer Date Recorded PHQ2 TOTAL SCORE 0 05/16/2021 Sex and Gender Information Value Date Recorded Sex Assigned at Not on file Gender Identity Not on file Sexual Orientation Not on file Last Filed Vital Signs Vital Sign Reading Time Taken Comments Blood Pressure 125/67 05/17/2021 11:28 AM CDT Pulse 103 05/17/2021 11:28 AM CDT Temperature 36.6 C (97.9 F) 05/17/2021 11:28 AM CDT Respiratory Rate 18 05/17/2021 11:2 8 AM CDT Oxygen Saturation 95% 05/17/2021 3:25 AM CDT Inhaled Oxygen Concentration - - Weight 62.1 kg (136 lb 12.8 oz) 05/15/2021 8:25 PM CDT Height 152.4 cm (5') 05/15/2021 8:25 PM CDT Body Mass Index 26.72 05/15/2021 8:25 PM CDT Functional Status Functional Status Response Date of Assess ment Is person deaf or have serious hearing difficult y? No 05/17/2021 Is person blind or have serious difficulty seein g? No 05/17/2021 Does person have serious dif ficulty walking/climbing stairs? No 05/17/2021 Does person have difficulty dressing/bathing? No 05/17/2021 Does person have difficulty doing errands alone? No 05/17/2021 Cognitive Status Response Date of Assessm ent Does person have difficulty concentrating/remembering/making decisions? No 05/17/2021 Plan of Treatment Not on file Procedures Procedure Name Priority Date/Time Associated Diagnosis Comments RENAL FUNCTION PANEL AM Draw 05/17/2021 3:33 AM CDT HEMOGLOBIN A1C Routine 04/24/2021 3:41 AM CDT DEXA BONE DENSITY 2 SITES Routine 06/30/2011 2:23 PM CDT Disorder of bone and cartilage, unspecified from Last 3 Months or Most Recently Relevant to Health Maintenance Results * (ABNORMAL) RENAL FUNCTION PANEL (05/17/2021 3:33 AM CDT) [facility] Glucose 104 70 - 105 mg/dL 05/17/2021 4:11 AM CDT [facility] Sodium 141 136 - 145 mmol/L 05/17/2021 4:11 AM CDT [facility] Potassium 3.5 3.5 - 5.1 mmol/L 05/17/2021 4:11 AM CDT [facility] Chloride 108(H) 98 - 107 mmol/L 05/17/2021 4:11 AM CDT [facility] CO2 22(L) 23 - 31 mmol/L 05/17/2021 4:11 AM CDT [facility] Calcium 8.4 8.4 - 10.4 mg/dL 05/17/2021 4:11 AM CDT [facility] Anion Gap 11 8 - 18 mmol/L 05/17/2021 4:11 AM CDT [facility] BUN 16 9.8 - 20.1 mg/dL 05/17/2021 4:11 AM CDT [facility] Creatinine 1.10 0.57 - 1.11 mg/dL 05/17/2021 4:11 AM CDT [facility] Albumin 3.5 3.2 - 4.6 gm/dL 05/17/2021 4:11 AM CDT [facility] Phosphorus 2.2(L) 2.3 - 4.7 mg/dL 05/17/2021 4:11 AM CDT [facility] eGFR by MDRD 48 mL/min/1.7 3m2 05/17/2021 4:11 AM CDT [facility] eGFR by MDRD 58 mL/min/1.7 3m2 05/17/2021 4:11 AM CDT [facility] Blood BLOOD SPECIMEN / Unknown Venipuncture / Unknown 05/17/2021 3:33 AM CDT 05/17/2021 3:45 AM CDT Calixto Glass MD LAB - CHEMISTRY SHANELL MENDES [facility] Organization Address City/State/ZIP Co de Phone Number [facility] [address] [place] [address] * (ABNORMAL) HEMOGLOBIN A1C (04/24/2021 3:41 AM CDT) Pathologist [facility] Hemoglobin A1c 7.4(H) 4.2 - 5.6 % 04/24/2021 4:29 AM CDT [facility] Estimated Average Glucose 166 mg/dL 04/24/2021 4:29 AM CDT [facility] Blood BLOOD SPECIMEN / Unknown Venipuncture / Unknown 04/24/2021 3:41 AM CDT 04/24/2021 3:56 AM CDT Narrative [facility] - 04/24/2021 4:29 AM CDT The following cutoff levels are recommended by [place] [employer]. A1c > 6.5% : considered as diabetes if two separate tests >6.5% or in an appropriate clinical setting. A1c 5.7% - 6.4% : considered as prediabetes (suggest increased risk for diabetes and cardiovascular disease) Control target level: Should be individualized. < 7 for general (non-) , < 8% less stringent goal, < 6.5 more stringent goal. Hemoglobin A1c measurements are used as an aid in the diagnosis of diabetic mellitus, as an aid to identify patients who may be at the risk for developing diabetic mellitus, and for the monitoring long-term blood glucose control in individuals with diabetes mellitus. This test should not replace glucose testing for patients with Type 1 diabetes, pediatric patients, or women. Falsely low HbA1c results may be observed in patients with clinical conditions that shorten erythrocyte life span or decrease mean erythrocyte age such as the presence of unstable hemoglobin variants, elevated hemoglobin F level or other causes of hemolytic anemia . HbA1c may not accurately reflect glycemic control when clinical conditions that affect erythrocyte survival are present. Severe Iron deficiency anemia may yield falsely high results. Hemoglobin A1c assay should not be used to diagnose or monitor diabetes in patients with malignancy, recent blood transfusion, chronic kidney or liver disease. This method may yield falsely low results when hemoglobin (HbF) exceeds 5% in the specimen. Vickie Pike MD LAB - CHEMISTRY SHANELL MENDES [facility] Organization Address City/State/ZIP Co de Phone Number [facility] [address] [place] [address] * DEXA BONE DENSITY 2 SITES (06/30/2011 2:23 PM CDT) Anatomical Region Laterality Modality Mammography 06/30/2011 2:19 PM CDT Narrative 06/30/2011 2:24 PM CDT BONE MINERAL DENSITY STUDY INDICATION: Postmenopausal ovarian failure - osteoporosis screening. FINDINGS: The average bone mineral density from L1 to L4 is 0.827 g/cm2. T-score is -2.9. Z-score is -1.3. When compared to previous examination of 09/22/2005, bone mineral density has increased 13.4% in the lumbar spine. The average bone mineral density of the total right hip is 0.783 g/cm2. T-score is -1.8. Z-score is -0.3. When compared to previous examination of 09/22/2005, bone mineral density has increased 1.9% in the proximal femur. ASSESSMENT: This patient is considered osteoporotic according to World Health Organization criteria. Fracture risk is significant. Pharmacological treatment, if not already prescribed, should be started. A followup bone density test is recommended in one year to monitor response to therapy. WOR[employer]IZATION DEFINITIONS OSTEOPENIA = -1 TO -2.5 SD BELOW T-SCORE. OSTEOPOROSIS = LESS THAN -2.5 SD BELOW T-SCORE. Procedure Note Keke Mahajan MD - 06/30/2011 BONE MINERAL DENSITY STUDY INDICATION: Postmenopausal ovarian failure - osteoporosis screening. FINDINGS: The average bone mineral density from L1 to L4 is 0.827 g/cm2. T-score is -2.9. Z-score is -1.3. When compared to previous examination of 09/22/2005, bone mineral density has increased 13.4% in the lumbar spine. The average bone mineral density of the total right hip is 0.783 g/cm2. T-score is -1.8. Z-score is -0.3. When compared to previous examination of 09/22/2005, bone mineral density has increased 1.9% in the proximal femur. ASSESSMENT: This patient is considered osteoporotic according to World Health Organization criteria. Fracture risk is significant. Pharmacological treatment, if not already prescribed, should be started. A followup bone density test is recommended in one year to monitor response to therapy. WORLD [employer]GANIZATION DEFINITIONS OSTEOPENIA = -1 TO -2.5 SD BELOW T-SCORE. OSTEOPOROSIS = LESS THAN -2.5 SD BELOW T-SCORE. Bladimir Esteves MD DEXA ORDERABLES from Last 3 Months or Most Recently Relevant to Health Maintenance Advance Directives Documents on File Type Date Recorded Patient Catheter Builder Expl anation Adv Directive/Living Will/POA 04/29/2021 9:18 PM * Full Code (Latest Code Status on File) Date Activated Date Inactivated Comments 05/14/2021 2:39 PM 05/17/2021 5:12 PM * Full Code Date Activated Date Inactivated Comments 04/29/2021 7:18 AM 05/08/2021 1:13 PM * Full Code Date Activated Date Inactivated Comments 04/25/2021 9:03 PM 04/28/2021 4:42 PM * Full Code Date Activated Date Inactivated Comments 04/23/2021 5:26 PM 04/25/2021 9:03 PM * Full Code Date Activated Date Inactivated Comments 03/09/2021 5:11 PM 03/11/2021 2:27 PM Care Teams Drum Sander Offbearer Relationship Specialty Start Date End Date Benny Wilkes MD [address] [place] [address] PCP - General Internal Medicine 03/09/21
--- OUTSIDE RECORDS SUMMARY | 2024-10-14 11:16 | XMS_ITS | Patient Health Summary ---
Author Organization [facility] [employer] Address [address] [place] [address] Care Team Providers Care Bookstore Manager Name Role Phone Benny Wilkes MD Primary Care Provider [phone] Note from [facility],non-owned Affiliates and Associated Physician Practices is amultiple site organization consisting of ambulatory clinics and hospital sitesin [place], [place], [place] and [place]. This disclosure is being madepursuant to the Care Everywhere program and may not contain all information available regarding this patient. Last updated 18.[facility] [employer] Allergies No known active allergies Medications * Be aware that medications may not be up to date on this document. Alwaysverify current medications with the patient. * aspirin EC (ECOTRIN) 81 MG tablet Take 81 mg by mouth once daily. Last dose 02/18/12 * atorvastatin (LIPITOR) 80 MG tablet(Started 10/07/2014) Take 1 Tab by mouth once daily. 2 refills left * apixaban (ELIQUIS) 5 MG tablet Take 2.5 mg by mouth 2 times daily * metoprolol succinate XL 24hr (TOPROL XL) 50 MG tablet(Started 04/28/2021) Take 1 (one) tablet by mouth once daily 3 refills by 04/28/2022 * levothyroxine (SYNTHROID) 125 MCG tablet(Started 05/18/2021) Take 1 (one) tablet by mouth once daily 2 refills by 05/17/2022 Active Problems Problem Noted Date Diagnosed Date Left-sided weakness 05/14/2021 Cerebrovascular accident (CV A) due to stenosis of right carotid artery 04/23/2021 Hypertension 03/09/2021 Atrial fibrillation with RVR 03/09/2021 INGRID to first diagonal in 201405/12/2015 HTN (hypertension), benign 05/12/2015 Diabetes type 2, controlled 05/12/2015 Hypercholesterolemia 11/02/2014 CAD (coronary artery disease) Resolved Problems Problem Noted Date Diagnosed Date Resolved Date INGRID to diagonal in 201411/02/2014 090 05/2015 HTN 11/02/2014 05/12/2015 Diabetes 11/02/2014 05/12/2015 Thyroid neoplasm 02/23/2012 02/23/2012 Immunizations * INFLUENZA VACCINE(Given 06/12/2014) * Pneumococcal Pcv13 Conj(Given 05/12/2008) Social History Tobacco Use Types Packs/Day Years [...] Mass Index 26.72 05/15/2021 8:25 PM CDT Procedures * EVENT MONITOR(Performed 08/18/2021) Performed for Chronic atrial fibrillation (HCC) * CARDIAC RHYTHM STRIP ORDER(Performed 05/18/2021) * T4 FREE DIRECT REFLEXED(Performed 05/17/2021) * RENAL FUNCTION PANEL(Performed 05/17/2021) * TSH REFLEX FREE T4(Performed 05/17/2021) * GLUCOSE - POINT OF CARE(Performed 05/16/2021) * CBC W AUTO DIFFERENTIAL(Performed 05/16/2021) Performed for PRANAY (acute kidney injury) ([facility]) * BASIC METABOLIC PANEL (CALCIUM TOTAL)(Performed 05/16/2021) Performed for PRANAY (acute kidney injury) ([facility]) * GLUCOSE - POINT OF CARE(Performed 05/16/2021) * BASIC METABOLIC PANEL (CALCIUM TOTAL)(Performed 05/16/2021) Performed for PRANAY (acute kidney injury) ([facility]) * GLUCOSE - POINT OF CARE(Performed 05/16/2021) * GLUCOSE - POINT OF CARE(Performed 05/15/2021) * B-TYPE NATRIURETIC PEPTIDE(Performed 05/15/2021) Performed for PRANAY (acute kidney injury) ([facility]) * MRI ANGIO BRAIN ARTERIAL WO CONT(Performed 05/15/2021) Performed for Left-sided weakness * MRI BRAIN WO CONTRAST(Performed 05/15/2021) Performed for Left-sided weakness * TROPONIN I(Performed 05/14/2021) Performed for Left-sided weakness * TROPONIN I(Performed 05/14/2021) * XR CHEST 1VW PORTABLE(Performed 05/14/2021) Performed for Left-sided weakness * COMPREHENSIVE METABOLIC PANEL(Performed 05/14/2021) * TYPE + SCREEN PANEL(Performed 05/14/2021) * TROPONIN I(Performed 05/14/2021) * PTT(Performed 05/14/2021) * PT-INR(Performed 05/14/2021) * CBC W AUTO DIFFERENTIAL(Performed 05/14/2021) * CREATININE - POCT INTERFACED(Performed 05/14/2021) * CT BRAIN STROKE(Performed 05/14/2021) Performed for Slurred speech, Left-sided weakness * EKG 12-LEAD(Performed 05/14/2021) Performed for Slurred speech, Left-sided weakness * CARDIAC EKG ORDER(Performed 05/11/2021) * TSH(Performed 05/08/2021) * VITAMIN B12(Performed 05/08/2021) * VITAMIN D 25-HYDROXY(Performed 05/08/2021) * BASIC METABOLIC PANEL (CALCIUM TOTAL)(Performed 05/03/2021) * CBC W/O DIFFERENTIAL(Performed 05/03/2021) * EMG(Performed 04/29/2021) * CARDIAC RHYTHM STRIP ORDER(Performed 04/29/2021) * GLUCOSE - POINT OF CARE(Performed 04/28/2021) * GLUCOSE - POINT OF CARE(Performed 04/28/2021) * BASIC METABOLIC PANEL (CALCIUM TOTAL)(Performed 04/28/2021) * GLUCOSE - POINT OF CARE(Performed 04/27/2021) * GLUCOSE - POINT OF CARE(Performed 04/27/2021) * CT ANGIO BRAIN AND NECK(Performed 04/27/2021) Performed for Cerebrovascular accident (CVA) due to stenosis of right carotid artery (HCC) * CT HEAD WO CONTRAST(Performed 04/27/2021) Performed for Cerebrovascular accident (CVA) due to stenosis of right carotid artery (HCC) * GLUCOSE - POINT OF CARE(Performed 04/27/2021) * GLUCOSE - POINT OF CARE(Performed 04/27/2021) * CBC W AUTO DIFFERENTIAL(Performed 04/27/2021) * BASIC METABOLIC PANEL (CALCIUM TOTAL)(Performed 04/27/2021) * GLUCOSE - POINT OF CARE(Performed 04/26/2021) * GLUCOSE - POINT OF CARE(Performed 04/26/2021) * GLUCOSE - POINT OF CARE(Performed 04/26/2021) * URINE MICROSCOPIC ONLY(Performed 04/26/2021) * URINALYSIS REFLEX TO MICROSCOPIC NO CULTURE(Performed 04/26/2021) * GLUCOSE - POINT OF CARE(Performed 04/26/2021) * CBC W AUTO DIFFERENTIAL(Performed 04/26/2021) * BASIC METABOLIC PANEL (CALCIUM TOTAL)(Performed 04/26/2021) * GLUCOSE - POINT OF CARE(Performed 04/25/2021) * GLUCOSE - POINT OF CARE(Performed 04/25/2021) * ENDOTRACHEAL TUBE NOTE(Performed 04/25/2021) * ARTERIAL LINE NOTE(Performed 04/25/2021) * PATHOLOGY TISSUE EXAM (STL)(Performed 04/25/2021) Performed for Diagnosis unknown * DE TEAEC W/PATCH GRF CRTD VRT SUBCLA NCK INC(Performed 04/25/2021) * GLUCOSE - POINT OF CARE(Performed 04/25/2021) * GLUCOSE - POINT OF CARE(Performed 04/25/2021) * BASIC METABOLIC PANEL (CALCIUM TOTAL)(Performed 04/25/2021) * GLUCOSE - POINT OF CARE(Performed 04/24/2021) * GLUCOSE - POINT OF CARE(Performed 04/24/2021) * GLUCOSE - POINT OF CARE(Performed 04/24/2021) * MRI BRAIN WO CONTRAST(Performed 04/24/2021) Performed for Cerebrovascular accident (CVA) due to stenosis of right carotid artery (HCC) * IR CAROTID CEREBRAL ANGIOGRAM(Performed 04/24/2021) Performed for Cerebrovascular accident (CVA) due to stenosis of right carotid artery (HCC), Carotidstenosis, symptomatic, with infarction (HCC) * GLUCOSE - POINT OF CARE(Performed 04/24/2021) * CBC W AUTO DIFFERENTIAL(Performed 04/24/2021) * BASIC METABOLIC PANEL (CALCIUM TOTAL)(Performed 04/24/2021) * LIPID PROFILE(Performed 04/24/2021) * HEMOGLOBIN A1C(Performed 04/24/2021) * TROPONIN I(Performed 04/24/2021) * GLUCOSE - POINT OF CARE(Performed 04/23/2021) * TROPONIN I(Performed 04/23/2021) * CT ANGIO BRAIN NECK STROKE(Performed 04/23/2021) Performed for Cerebrovascular accident (CVA), unspecified mechanism (HCC) * TYPE + SCREEN PANEL(Performed 04/23/2021) * TROPONIN I(Performed 04/23/2021) * PTT(Performed 04/23/2021) * PT-INR(Performed 04/23/2021) * COMPREHENSIVE METABOLIC PANEL(Performed 04/23/2021) * CBC W AUTO DIFFERENTIAL(Performed 04/23/2021) * CT BRAIN STROKE(Performed 04/23/2021) Performed for Cerebrovascular accident (CVA), unspecified mechanism (HCC) * ED CRITICAL CARE(Performed 04/23/2021) Performed for Cerebrovascular accident (CVA), unspecified mechanism (HCC) * EKG 12-LEAD(Performed 04/23/2021) Performed for Cerebrovascular accident (CVA), unspecified mechanism (HCC) * CARDIAC EKG ORDER(Performed 03/15/2021) * CARDIAC RHYTHM STRIP ORDER(Performed 03/14/2021) * CARDIAC EKG ORDER(Performed 03/14/2021) * CT HEAD WO CONTRAST(Performed 03/13/2021) Performed for Weakness * XR CHEST 2VW(Performed 03/13/2021) Performed for Weakness * TROPONIN I(Performed 03/13/2021) * ACETAMINOPHEN LEVEL(Performed 03/13/2021) * SALICYLATE LEVEL BLOOD(Performed 03/13/2021) * PT-INR(Performed 03/13/2021) * MAGNESIUM BLOOD(Performed 03/13/2021) * B-TYPE NATRIURETIC PEPTIDE(Performed 03/13/2021) * COMPREHENSIVE METABOLIC PANEL(Performed 03/13/2021) * CBC W AUTO DIFFERENTIAL(Performed 03/13/2021) * SARS-COV-2 (COVID-19) IN HOUSE(Performed 03/13/2021) * EKG 12-LEAD(Performed 03/13/2021) Performed for Weakness * MAGNESIUM BLOOD(Performed 03/11/2021) * BASIC METABOLIC PANEL (CALCIUM TOTAL)(Performed 03/11/2021) * CBC W AUTO DIFFERENTIAL(Performed 03/11/2021) * OT EVAL AND TREAT(Performed 03/10/2021) * PT EVAL AND TREAT(Performed 03/10/2021) * PROCALCITONIN LEVEL(Performed 03/10/2021) Performed for Hypertension, unspecified type * HEMOGLOBIN A1C(Performed 03/10/2021) Performed for Atrial fibrillation with RVR (HCC) * CBC W AUTO DIFFERENTIAL(Performed 03/10/2021) Performed for Atrial fibrillation with RVR (HCC) * MAGNESIUM BLOOD(Performed 03/10/2021) Performed for Atrial fibrillation with RVR (HCC) * COMPREHENSIVE METABOLIC PANEL(Performed 03/10/2021) Performed for Atrial fibrillation with RVR (HCC) * TROPONIN I(Performed 03/09/2021) * T4 FREE DIRECT REFLEXED(Performed 03/09/2021) * TSH REFLEX FREE T4(Performed 03/09/2021) * TROPONIN I(Performed 03/09/2021) * ECHOCARDIOGRAM 2D WITH DOPPLER(Performed 03/09/2021) Performed for Atrial fibrillation with RVR (HCC) * XR CHEST 2VW(Performed 03/09/2021) Performed for Atrial fibrillation with RVR (HCC) * XR CHEST 1VW PORTABLE(Performed 03/09/2021) Performed for Atrial fibrillation with RVR (HCC) * T4 FREE DIRECT REFLEXED(Performed 03/09/2021) * TSH REFLEX FREE T4(Performed 03/09/2021) * TROPONIN I(Performed 03/09/2021) * MAGNESIUM BLOOD(Performed 03/09/2021) * COMPREHENSIVE METABOLIC PANEL(Performed 03/09/2021) * CBC W AUTO DIFFERENTIAL(Performed 03/09/2021) * ED CRITICAL CARE(Performed 03/09/2021) Performed for Atrial fibrillation with RVR (HCC), Hypertension, unspecified type * EKG 12-LEAD(Performed 03/09/2021) Performed for Atrial fibrillation with RVR (HCC) * MAMMO BILAT SCREENING(Performed 06/02/2020) Performed for Visit for screening mammogram * MAMMO BILAT SCREENING(Performed 10/29/2018) Performed for Screening mammogram, encounter for * XR CHEST 2VW(Performed 08/10/2017) Performed for Dizziness * CT HEAD WO CONTRAST(Performed 08/10/2017) Performed for Dizziness * EKG 12-LEAD(Performed 08/10/2017) Performed for Dizziness * BASIC METABOLIC PANEL (CALCIUM TOTAL)(Performed 08/10/2017) * CBC W AUTO DIFFERENTIAL(Performed 08/10/2017) * MAMMO BILAT SCREENING(Performed 07/04/2017) Performed for Visit for screening mammogram * MAMMO BILAT SCREENING(Performed 06/28/2016) Performed for Visit for screening mammogram * MAMMO BILAT SCREENING(Performed 06/24/2015) Performed for Visit for screening mammogram * TSH(Performed 10/07/2014) * GLUCOSE - POINT OF CARE(Performed 10/06/2014) * POTASSIUM BLOOD(Performed 10/06/2014) * GLUCOSE - POINT OF CARE(Performed 10/06/2014) * GLUCOSE - POINT OF CARE(Performed 10/06/2014) * GLUCOSE - POINT OF CARE(Performed 10/06/2014) * URINALYSIS REFLEX MICROSCOPIC REFLEX CULTURE(Performed 10/06/2014) * HEMOGLOBIN A1C(Performed 10/06/2014) * CULTURE URINE(Performed 10/06/2014) * PHOSPHORUS BLOOD(Performed 10/06/2014) * MAGNESIUM BLOOD(Performed 10/06/2014) * CBC W AUTO DIFFERENTIAL(Performed 10/06/2014) Performed for Elevated troponin * BASIC METABOLIC PANEL (CALCIUM TOTAL)(Performed 10/06/2014) Performed for Elevated troponin * GLUCOSE - POINT OF CARE(Performed 10/06/2014) * GLUCOSE - POINT OF CARE(Performed 10/05/2014) * CULTURE VRE(Performed 10/05/2014) * CULTURE MRSA(Performed 10/05/2014) * TROPONIN I(Performed 10/05/2014) * IR CAROTID CEREBRAL ANGIOGRAM(Performed 10/05/2014) Performed for Headache * CT HEAD WO CONTRAST(Performed 10/05/2014) Performed for Mental status change * GLUCOSE - POINT OF CARE(Performed 10/05/2014) * ACT - POINT OF CARE(Performed 10/05/2014) * ACT - POINT OF CARE(Performed 10/05/2014) * ACT - POINT OF CARE(Performed 10/05/2014) * CT ABDOMEN PELVIS W CONTRAST(Performed 10/05/2014) Performed for Abdominal Pain, Epigastric * CT ANGIO CHEST PULM EMBOLISM(Performed 10/05/2014) Performed for Chest pain * XR CHEST 1VW PORTABLE(Performed 10/05/2014) Performed for Chest pain * CARDIAC CATH CONSULT(Performed 10/05/2014) * CARDIAC CATH(Performed 10/05/2014) * TROPONIN I(Performed 10/05/2014) * LIPASE BLOOD(Performed 10/05/2014) * COMPREHENSIVE METABOLIC PANEL(Performed 10/05/2014) * CBC W AUTO DIFFERENTIAL(Performed 10/05/2014) * EKG 12-LEAD(Performed 10/05/2014) Performed for CAD (coronary artery disease) * ED SPLINT APPLICATION(Performed 06/28/2014) * XR FOOT LEFT 3VW OR MORE(Performed 06/28/2014) Performed for Fall, initial encounter * XR ANKLE LEFT 3VW OR MORE(Performed 06/28/2014) Performed for Fall, initial encounter * LCHG THYROGLOBULIN II(Performed 04/08/2014) Performed for Malignant neoplasm of thyroid gland (HCC) * THYROGLOBULIN ANTIBODY(Performed 04/08/2014) Performed for Malignant neoplasm of thyroid gland (HCC) * THYROGLOBULIN(Performed 04/08/2014) Performed for Malignant neoplasm of thyroid gland (HCC) * MAMMO BILAT SCREENING(Performed 10/29/2013) Performed for Other screening mammogram * LCHG THYROGLOBULIN II(Performed 10/07/2013) Performed for Malignant neoplasm of thyroid gland (HCC) * THYROGLOBULIN ANTIBODY(Performed 10/07/2013) Performed for Malignant neoplasm of thyroid gland (HCC) * THYROGLOBULIN(Performed 10/07/2013) Performed for Malignant neoplasm of thyroid gland (HCC) * LAB RESULTS ORDER(Performed 11/01/2012) * THYROGLOBULIN PANEL(Performed 10/18/2012) * HEMOGLOBIN A1C(Performed 10/18/2012) * NM THYROID WHOLE BODY SCAN(Performed 10/16/2012) Performed for Malignant neoplasm of thyroid gland (HCC) * XR SHOULDER LEFT 2VW OR MORE(Performed 07/01/2012) Performed for Shoulder pain * MAMMO BILAT SCREENING(Performed 07/01/2012) Performed for Other screening mammogram * NM THYROID WHOLE BODY SCAN(Performed 04/02/2012) Performed for Malignant neoplasm of thyroid gland (HCC) * THYROGLOBULIN PANEL(Performed 03/22/2012) * TSH(Performed 03/22/2012) * BASIC METABOLIC PANEL (CALCIUM TOTAL)(Performed 02/24/2012) * IP CONSULT TO PASTORAL CARE(Performed 02/23/2012) * BASIC METABOLIC PANEL (CALCIUM TOTAL)(Performed 02/23/2012) * GLUCOSE - POINT OF CARE(Performed 02/23/2012) * GLUCOSE - POINT OF CARE(Performed 02/23/2012) * BASIC METABOLIC PANEL (CALCIUM TOTAL)(Performed 02/23/2012) Performed for Preop examination * EKG 12-LEAD(Performed 02/23/2012) Performed for Preop examination * GROSS + MICRO EXAM(Performed 02/23/2012) * US THYROID(Performed 02/08/2012) Performed for Goiter, unspecified * STRESS TEST TREADMILL (NO IMAGING)(Performed 09/28/2011) Performed for Chest pain, unspecified * MAMMO BILAT SCREENING(Performed 06/30/2011) Performed for Other screening mammogram * DEXA BONE DENSITY 2 SITES(Performed 06/30/2011) Performed for Disorder of bone and cartilage, unspecified Results * EVENT MONITOR (08/18/2021 1:13 PM DIRECTOR OF CAREER SERVICES) Narrative Tere Dubon CNMT - 08/18/2021 1:13 PM DIRECTOR OF CAREER SERVICES Tere Dubon CNMT 08/18/2021 1:14 PM Device was delivered on 04/25/21. Patient cancelled no patient contact Mona Knight APRN-DOMENIC CARDIAC SERVICES ORDERABLES * CARDIAC RHYTHM STRIP ORDER (05/18/2021 8:29 PM CDT) Only the most recent of3 resultswithin the time period is included. Narrative 05/18/2021 8:29 PM CDT Ordered by an unspecified provider. Scanned Document CARDIAC SERVICES ORD ERABLES * T4 FREE DIRECT REFLEXED (05/17/2021 3:33 AM CDT) Only the most recent of3 resultswithin the time period is included. T4 Free 0.83 0.70 - 1.48 ng/dL 05/17/2021 6:09 AM CDT [facility] Blood BLOOD SPECIMEN / Unknown Venipuncture / Unknown 05/17/2021 3:33 AM CDT 05/17/2021 3:45 AM CDT Calixto Glass MD LAB - CHEMISTRY SHANELL MENDES Performing Organization Address [facility] de Phone Number [facility] [id number] [place] [id number] * (ABNORMAL) TSH REFLEX FREE T4 (05/17/2021 3:33 AM CDT) Only the most recent of3 resultswithin the time period is included. Pathologist [facility] TSH 43.298(H) 0.350 - 4.940 uIU/mL 05/17/2021 4:40 AM CDT [facility] Blood BLOOD SPECIMEN / Unknown Venipuncture / Unknown 05/17/2021 3:33 AM CDT 05/17/2021 3:45 AM CDT Calixto Glass MD LAB - CHEMISTRY SHANELL MENDES Performing Organization Address [facility] de Phone Number [facility] [address] [place], [place] [id number] * (ABNORMAL) RENAL FUNCTION PANEL (05/17/2021 3:33 AM CDT) Pathologist [facility] Glucose 104 70 - 105 mg/dL 05/17/2021 4:11 AM CDT [facility] Sodium 141 136 - 145 mmol/L 05/17/2021 4:11 AM CDT [facility] Potassium 3.5 3.5 - 5.1 mmol/L 05/17/2021 4:11 AM CDT [facility] Chloride 108(H) 98 - 107 mmol/L 05/17/2021 4:11 AM CDT [facility] CO2 22(L) 23 - 31 mmol/L 05/17/2021 4:11 AM CDT [facility] Calcium 8.4 8.4 - 10.4 mg/dL 05/17/2021 4:11 AM CDT [facility] Anion Gap 11 8 - 18 mmol/L 05/17/2021 4:11 AM CDT [facility] BUN 16 9.8 - 20.1 mg/dL 05/17/2021 4:11 AM CDT [facility] Creatinine 1.10 0.57 - 1.11 mg/dL 05/17/2021 4:11 AM CDT [facility] Albumin 3.5 3.2 - 4.6 gm/dL 05/17/2021 4:11 AM CDT [facility] Phosphorus 2.2(L) 2.3 - 4.7 mg/dL 05/17/2021 4:11 AM CDT [facility] eGFR by MDRD 48 mL/min/1.7 3m2 05/17/2021 4:11 AM CDT [facility] eGFR by MDRD 58 mL/min/1.7 3m2 05/17/2021 4:11 AM CDT [facility] Blood BLOOD SPECIMEN / Unknown Venipuncture / Unknown 05/17/2021 3:33 AM CDT 05/17/2021 3:45 AM CDT Calixto Glass MD LAB - CHEMISTRY SHANELL MENDES [facility] Organization Address City/State/ZIP Co de Phone Number [facility] [address] [place] [address] * (ABNORMAL) GLUCOSE - POINT OF CARE (05/16/2021 5:09 PM CDT) Only the most recent of34 resultswithin the time period is included. Glucose WB/POC 133(H) 70 - 106 mg/dL 05/16/2021 5:28 PM CDT [facility] Specimen Type Cap Fingerstick 2020 5:28 PM CDT [facility] Blood BLOOD SPECIMEN / Unknown 05/16/2021 5:09 PM CDT 05/16/2021 5:28 PM CDT Chelsie Kevin MD LAB - POINT OF CARE ORDERABLES [facility] [address] [place] [address] * (ABNORMAL) CBC W AUTO DIFFERENTIAL (05/16/2021 12:27 PM CDT) Only the most recent of13 resultswithin the time period is included. WBC 5.8 4.4 - 10.7 x10E9/L 05/16/2021 12:35 PM CDT [facility] WBC Corrected 05/16/2021 12:35 PM CDT [facility] RBC 3.31(L) 3.80 - 5.20 x10E12/L 05/16/2021 12:35 PM CDT [facility] Hemoglobin 9.7(L) 12.0 - 15.6 gm/dL 05/16/2021 12:35 PM CDT [facility] Hematocrit 30.2(L) 35.9 - 45.5 % 05/16/2021 12:35 PM CDT [facility] MCV 91.2 80.7 - 98.3 fl 05/16/2021 12:35 PM CDT [facility] MCH 29.3 26.7 - 34.0 pg 05/16/2021 12:35 PM CDT [facility] MCHC 32.1 30.8 - 35.9 gm/dL 05/16/2021 12:35 PM CDT [facility] Platelet Count 226 153 - 416 x10E9/L 05/16/2021 12:35 PM CDT [facility] RDW-CV 13.2 12.1 - 14.9 % 05/16/2021 12:35 PM CDT [facility] MPV 9.2(L) 9.4 - 12.9 fl 05/16/2021 12:35 PM CDT [facility] Neutrophils % 80.6(H) 44.0 - 73.0 % 05/16/2021 12:35 PM CDT [facility] Lymphocytes % 8.2(L) 20.0 - 43.0 % 05/16/2021 12:35 PM CDT [facility] Monocytes % 9.6 5.0 - 13.0 % 05/16/2021 12:35 PM CDT [facility] Eosinophils % 1.0 0.0 - 6.0 % 05/16/2021 12:35 PM CDT [facility] Basophils % 0.3 0.0 - 2.0 % 05/16/2021 12:35 PM CDT [facility] Immature Granulocytes 0.3 0 - 1 % 05/16/2021 12:35 PM CDT [facility] Neutrophil Absolute 4.68 2.01 - 7.14 x10E9/L 05/16/2021 12:35 PM CDT [facility] Lymphocytes Absolute 0.48(L) 1.07 - 3.94 x10E9/L 05/16/2021 12:35 PM CDT [facility] Monocytes Absolute 0.56 0.26 - 1.07 x10E9/L 05/16/2021 12:35 PM CDT [facility] Eosinophils Absolute 0.06 0 - 0.47 x10E9/L 05/16/2021 12:35 PM CDT [facility] Basophils Absolute 0.02 0 - 0.08 x10E9/L 05/16/2021 12:35 PM CDT [facility] Immature Granulocytes Absolute 0.02 0.00 - 0.06 x10E9/L 05/16/2021 12:35 PM CDT [facility] nRBC Auto 0 /100 WBC 05/16/2021 12:35 PM CDT [facility] Blood BLOOD SPECIMEN / Unknown Venipuncture / Unknown 05/16/2021 12:27 PM CDT 05/16/2021 12:31 PM CDT Rosey Palafox OPERATING ROOM RN-QA LEAD LAB - HEMATOLOG Y ORDERABLES [facility] [address] [place] [address] * (ABNORMAL) BASIC METABOLIC PANEL (CALCIUM TOTAL) (05/16/2021 12:27 PM CDT) Only the most recent of14 resultswithin the time period is included. [facility] Glucose 130(H) 70 - 105 mg/dL 05/16/2021 12:50 PM CDT [facility] Sodium 141 136 - 145 mmol/L 05/16/2021 12:50 PM CDT [facility] Potassium 3.6 3.5 - 5.1 mmol/L 05/16/2021 12:50 PM CDT [facility] Chloride 108(H) 98 - 107 mmol/L 05/16/2021 12:50 PM CDT [facility] CO2 23 23 - 31 mmol/L 05/16/2021 12:50 PM CDT [facility] Calcium 8.3(L) 8.4 - 10.4 mg/dL 05/16/2021 12:50 PM CDT [facility] Anion Gap 10 8 - 18 mmol/L 05/16/2021 12:50 PM CDT [facility] BUN 18 9.8 - 20.1 mg/dL 05/16/2021 12:50 PM CDT [facility] Creatinine 1.20(H) 0.57 - 1.11 mg/dL 05/16/2021 12:50 PM CDT [facility] eGFR by MDRD 43 mL/min/1.7 3m2 05/16/2021 12:50 PM CDT [facility] eGFR by MDRD 52 mL/min/1.7 3m2 05/16/2021 12:50 PM CDT [facility] Blood BLOOD SPECIMEN / Unknown Venipuncture / Unknown 05/16/2021 12:27 PM CDT 05/16/2021 12:31 PM CDT Rosey Palafox OPERATING ROOM RN-QA LEAD LAB - CHEMISTRY ORDERABLES [facility] [address] [place] [address] * (ABNORMAL) B-TYPE NATRIURETIC PEPTIDE (05/15/2021 12:25 PM CDT) Only the most recent of2 resultswithin the time period is included. 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 Hypoperfused right M2 as well as sylvian MCA branch vessels. 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 Mild left M1 stenosis. *Reading Radiologist: Octavio Ng on 05/15/2021 at 10:54 AM Narrative 05/15/2021 10:54 AM CDT MRA Head Without Contrast INDICATION: Left-sided weakness, stroke follow-up 80-year-old female. Prior CVA TECHNIQUE: MRA [id number] of the head without contrast. 3D/MIP reconstructions performed on independent workstation. Comparison CT angiogram April 27, 2021. Patient had a catheter angiogram April 24, 2021 FINDINGS: Posterior circulation: The left vertebral artery is slightly larger. Bilateral iliac a PICA complexes. No basilar stenosis. Hypoplastic P1 segments right more hypoplastic than left secondary to posterior commuting arteries. Mild narrowing of the proximal left M1 similar to the CT angiogram. The left cavernous carotid artery shows stenosis to the inferior horizontal segment with a focal area of fusiform distention suggesting a multisegmental inferior left CCA stenosis. The M2 segments are adequately preserved. On the right, occluded right M1 with multiple collateral vessels having a moyamoya-type appearance in the right basal ganglia. The M2 vessels peripherally show decreased flow. Procedure Note Octavio Ng MD - 05/15/2021 MRA Head Without Contrast INDICATION: Left-sided weakness, stroke follow-up 80-year-old female. Prior CVA TECHNIQUE: MRA inja-[id number] of the head without contrast. 3D/MIP reconstructions performed on independent workstation. Comparison CT angiogram April 27, 2021. Patient had a catheter angiogram April 24, 2021 FINDINGS: Posterior circulation: The left vertebral artery is slightly larger. Bilateral iliac a PICA complexes. No basilar stenosis. Hypoplastic P1 segments right more hypoplastic than left secondary to posterior commuting arteries. Mild narrowing of the proximal left M1 similar to the CT angiogram. The left cavernous carotid artery shows stenosis to the inferior horizontal segment with a focal area of fusiform distention suggesting a multisegmental inferior left CCA stenosis. The M2 segments are adequately preserved. On the right, occluded right M1 with multiple collateral vessels having a moyamoya-type appearance in the right basal ganglia. The M2 vessels peripherally show decreased flow. 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 This is chronic. 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 Hypoperfused right M2 as well as sylvian MCA branch vessels. 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 Mild left M1 stenosis. *Reading Radiologist: Octavio Ng on 05/15/2021 at 10:54 AM Emerita Dutta MD MR ORDERABLES * MRI BRAIN NON CONTRAST (05/15/2021 8:56 AM CDT) Only the most recent of2 resultswithin the time period is included. Anatomical Region Laterality Modality Head Magnetic Resonan ce 05/15/2021 10:4 0 AM CDT Impressions 05/15/2021 10:45 AM CDT Persistent restricted diffusion right frontal temporal. This primarily involves the deep white matter. Similar distribution of altered diffusion. The diffusion restriction should have normalize from the April 24, 2021 examination. Findings consistent with a recurrent area of ischemia. Other causes of restricted diffusion such as encephalitis felt unlikely. Remote right cerebellar infarct. *Reading Radiologist: Octavio Ng on 05/15/2021 at 10:45 AM Narrative 05/15/2021 10:45 AM CDT MRI Brain Without Contrast Clinical Indication: Left-sided weakness , Prior infarct Technique: Multisequence, multiplanar MRI sequences of the brain without contrast. Comparison April 24, 2021. Comparison head CT May 14, 2021. Findings: The patient has had an additional ischemic insult subependymoma right temporal. The distribution of this area is very similar to the April 2021 distribution. Findings consistent with a recurrent similar distribution ischemic insult. This involves the subcortical white matter.. Inversion recovery images shows slight cortical involvement right frontal. Lacunar infarct right subependymoma occipital. Small vessel ischemic changes right external capsule. There is no proteinaceous extra-axial fluid collection. Remote right cerebellar infarct. No hemorrhagic transformation supratentorial. The left cerebellar hemorrhage consistent with a prior white matter microhemorrhage is unchanged. The degree of pontine small vessel ischemic changes are mild and unchanged. Procedure Note Octavio Ng MD - 05/15/2021 MRI Brain Without Contrast Clinical Indication: Left-sided weakness , Prior infarct Technique: Multisequence, multiplanar MRI sequences of the brain without contrast. Comparison April 24, 2021. Comparison head CT May 14, 2021. Findings: The patient has had an additional ischemic insult subependymoma right temporal. The distribution of this area is very similar to the April 2021 distribution. Findings consistent with a recurrent similar distribution ischemic insult. This involves the subcortical white matter.. Inversion recovery images shows slight cortical involvement right frontal. Lacunar infarct right subependymoma occipital. Small vessel ischemic changes right external capsule. There is no proteinaceous extra-axial fluid collection. Remote right cerebellar infarct. No hemorrhagic transformation supratentorial. The left cerebellar hemorrhage consistent with a prior white matter microhemorrhage is unchanged. The degree of pontine small vessel ischemic changes are mild and unchanged. IMPRESSION Persistent restricted diffusion right frontal temporal. This primarily involves the deep white matter. Similar distribution of altered diffusion. The diffusion restriction should have normalize from the April 24, 2021 examination. Findings consistent with a recurrent area of ischemia. Other causes of restricted diffusion such as encephalitis felt unlikely. Remote right cerebellar infarct. *Reading Radiologist: Octavio Ng on 05/15/2021 at 10:45 AM Emerita Dutta MD MR ORDERABLES * TROPONIN I (05/14/2021 9:54 PM CDT) Only the most recent of12 resultswithin the time period is included. Troponin I <0.010 <0.038 ng/mL 05/14/2021 10:18 PM CDT [facility] Blood BLOOD SPECIMEN / Unknown Venipuncture / Unknown 05/14/2021 9:54 PM CDT 05/14/2021 9:56 PM CDT Emerita Dutta MD LAB - CHEMISTRY SHANELL MENDES [facility] [address] [place] [address] * XR CHEST 1VW PORTABLE (05/14/2021 2:35 PM CDT) Only the most recent of3 resultswithin the time period is included. Anatomical Region Laterality Modality Chest Radiographic Em ging 05/14/2021 3:26 PM CDT Narrative 05/14/2021 3:27 PM CDT Portable AP Chest x-ray INDICATION: Shortness of breath COMPARISON: 03/13/2021 FINDINGS: Heart is enlarged. There is prominence of interstitial pattern bilaterally. There is no focal consolidation, significant pleural effusion or pneumothorax. A mass is not identified. *Reading Radiologist: Toño Martinez on 05/14/2021 at 3:27 PM Procedure Note Toño Martinez MD - 05/14/2021 Portable AP Chest x-ray INDICATION: Shortness of breath COMPARISON: 03/13/2021 FINDINGS: Heart is enlarged. There is prominence of interstitial pattern bilaterally. There is no focal consolidation, significant pleural effusion or pneumothorax. A mass is not identified. *Reading Radiologist: Toño Martinez on 05/14/2021 at 3:27 PM Emerita Dutta MD DIAGNOSTIC IMAGING O RDERABLES * (ABNORMAL) COMPREHENSIVE METABOLIC PANEL (05/14/2021 2:31 PM CDT) Only the most recent of6 resultswithin the time period is included. Glucose 145(H) 70 - 105 mg/dL 05/14/2021 2:57 PM CDT [facility] Sodium 140 136 - 145 mmol/L 05/14/2021 2:57 PM CDT [facility] Potassium 5.2(H) 3.5 - 5.1 mmol/L 05/14/2021 2:57 PM CDT [facility] Chloride 106 98 - 107 mmol/L 05/14/2021 2:57 PM CDT [facility] CO2 19(L) 23 - 31 mmol/L 05/14/2021 2:57 PM CDT [facility] Calcium 9.8 8.4 - 10.4 mg/dL 05/14/2021 2:57 PM CDT [facility] Anion Gap 15 8 - 18 mmol/L 05/14/2021 2:57 PM CDT [facility] BUN 40(H) 9.8 - 20.1 mg/dL 05/14/2021 2:57 PM CDT [facility] Creatinine 2.96(H) 0.57 - 1.11 mg/dL 05/14/2021 2:57 PM CDT [facility] Alkaline Phosphatase 92 40 - 150 U/L 05/14/2021 2:57 PM CDT [facility] ALT 12 0 - 61 U/L 05/14/2021 2:57 PM CDT [facility] AST 26 5 - 34 U/L 05/14/2021 2:57 PM CDT [facility] Protein Total 8.2 6.4 - 8.3 gm/dL 05/14/2021 2:57 PM CDT [facility] Albumin 4.2 3.2 - 4.6 gm/dL 05/14/2021 2:57 PM CDT [facility] Bilirubin Total 0.8 0.2 - 1.2 mg/dL 05/14/2021 2:57 PM CDT [facility] eGFR by MDRD 15 mL/min/1.7 3m2 05/14/2021 2:57 PM CDT [facility] eGFR by MDRD 18 mL/min/1.7 3m2 05/14/2021 2:57 PM CDT [facility] Blood BLOOD SPECIMEN / Unknown Venipuncture / Unknown 05/14/2021 2:31 PM CDT 05/14/2021 2:31 PM CDT Mindy Hicks PA-C LAB - CHEMISTRY ORDERABLES Performing Organization Address [facility] Co de Phone Number [facility] [id number] [place] [id number] * TYPE + SCREEN PANEL (05/14/2021 2:30 PM CDT) Only the most recent of2 resultswithin the time period is included. ABO Rh A POS 05/14/2021 3:11 PM CDT [facility] Comment:History checked. Antibody Screen NEG 3:11 PM CDT [facility] Blood Bank BLOOD SPECIMEN / Unknown Venipuncture / Unknown 05/14/2021 2:30 PM CDT 05/14/2021 2:30 PM CDT Mindy Hicks PA-C LAB - BLOOD BANK ORDERABLES Performing Organization Address [facility] de Phone Number [facility] [address] [place] [address] * (ABNORMAL) PTT (05/14/2021 2:30 PM CDT) Only the most recent of2 resultswithin the time period is included. PTT 42.4(H) 23.0 - 38.4 sec 05/14/2021 2:50 PM CDT [facility] Blood BLOOD SPECIMEN / Unknown Venipuncture / Unknown 05/14/2021 2:30 PM CDT 05/14/2021 2:30 PM CDT Narrative [facility] - 05/14/2021 2:50 PM CDT Heparin Therapeutic Range for PTT: 71.0 - 109.0 seconds. Mindy Hicks PA-C LAB - COAGULATIO N ORDERABLES Performing Organization Address [facility] Co de Phone Number [facility] [phone] [place] [phone] * (ABNORMAL) PT-INR (05/14/2021 2:30 PM CDT) Only the most recent of3 resultswithin the time period is included. PT 18.5(H) 12.1 - 14.8 sec 05/14/2021 2:49 PM CDT [facility] INR 1.6(H) 0.9 - 1.1 05/14/2021 2:49 PM CDT [facility] Blood BLOOD SPECIMEN / Unknown Venipuncture / Unknown 05/14/2021 2:30 PM CDT 05/14/2021 2:30 PM CDT Narrative [facility] - 05/14/2021 2:49 PM CDT Conventional Warfarin Anticoagulant Therapy: INR Reference Range: 2.0-3.0 Intensive Warfarin Anticoagulant Therapy: INR Reference Range: 2.5-3.5 Mindy Hicks PA-C LAB - COAGULATIO N ORDERABLES Performing Organization Address [facility] Co de Phone Number [facility] [address] [place], [place] [id number] * (ABNORMAL) CREATININE - POCT INTERFACED (05/14/2021 2:03 PM CDT) Creatinine POCT 2.30(H) 0.70 - 1.20 mg/dL 05/14/2021 2:15 PM CDT [facility] Blood BLOOD SPECIMEN / Unknown 05/14/2021 2:03 PM CDT 05/14/2021 2:15 PM CDT Emerita Dutta MD LAB - POINT OF CARE ORDERABLES Performing Organization Address [facility] Co de Phone Number [facility] [address] [place] [address] * CT BRAIN - Stroke (05/14/2021 1:59 PM CDT) Only the most recent of2 resultswithin the time period is included. Anatomical Region Laterality Modality Head Computed Tomogra phy 05/14/2021 2:12 PM CDT Impressions 05/14/2021 2:14 PM CDT No acute intracranial abnormalities *Reading Radiologist: Toño Martinez on 05/14/2021 at 2:14 PM Narrative 05/14/2021 2:14 PM CDT EXAM: CT scan of the brain without contrast INDICATION: Slurred speech COMPARISON: None available TECHNIQUE: Axial images through the brain without contrast FINDINGS: There is no evidence of acute intracranial hemorrhage. There is no mass or midline shift. Ventricular and sulcal size is within normal limits. There are no extra-axial fluid collections. The bony calvarium is intact. There is partial opacification of the ethmoid air cells and left maxillary sinus. There is mild volume loss and mild low-attenuation in the periventricular/subcortical white matter consistent with chronic microvascular ischemic change. Procedure Note Toño Martinez MD - 05/14/2021 EXAM: CT scan of the brain without contrast INDICATION: Slurred speech COMPARISON: None available TECHNIQUE: Axial images through the brain without contrast FINDINGS: There is no evidence of acute intracranial hemorrhage. There is no mass or midline shift. Ventricular and sulcal size is within normal limits. There are no extra-axial fluid collections. The bony calvarium is intact. There is partial opacification of the ethmoid air cells and left maxillary sinus. There is mild volume loss and mild low-attenuation in the periventricular/subcortical white matter consistent with chronic microvascular ischemic change. IMPRESSION No acute intracranial abnormalities *Reading Radiologist: Toño Martinez on 05/14/2021 at 2:14 PM Mindy Hicks PA-C CT ORDERABLES * EKG 12-LEAD (05/14/2021 1:46 PM CDT) Only the most recent of7 resultswithin the time period is included. Ventricular Rate 71 BPM [facility] QRS Duration ms 80 ms [facility] Q-T Interval ms 352 ms [facility] QTC Calculation (Bezet) 382 ms [facility] Calculated R Tererro -8 degrees [facility] Calculated T Tererro 166 degrees [facility] Interpretation EKG Atrial fibrillation Inferior infarct (cited on or before 23-FEB-2012) Abnormal ECG When compared with ECG of 05-OCT-2014 11:08, Atrial fibrillation has replaced Sinus rhythm Confirmed by ELOY VILLASEÑOR MD ([id number]) on 05/16/2021 9:18:45 PM [facility] 05/14/2021 1:46 PM CDT 05/16/2021 9:18 PM CDT Mindy Hicks PA-C ECG ORDERABLES Performing Organization Address [facility] Co de Phone Number [facility] * CARDIAC EKG ORDER (05/11/2021 5:20 PM CDT) Only the most recent of3 resultswithin the time period is included. Narrative 05/11/2021 5:20 PM CDT Ordered by an unspecified provider. Scanned Document CARDIAC SERVICES ORD ERABLES * (ABNORMAL) VITAMIN D 25-HYDROXY (05/08/2021 5:00 AM CDT) Vitamin D, 25 Hydroxy 24.8(L) 30 - 100 ng/mL 05/08/2021 7:35 AM CDT [facility] Blood BLOOD SPECIMEN / Unknown 05/08/2021 5:00 AM CDT 05/08/2021 6:45 AM CDT Narrative [facility] - 05/08/2021 7:35 AM CDT Vitamin D Status: Deficiency <20 ng/mL Insufficiency 20-30 ng/mL Sufficiency 30-100 ng/mL Toxicity >100 ng/mL Adriel Monson MD LAB - CHEMISTRY SHANELL MENDES Performing Organization Address [facility] Co de Phone Number [facility] [address] [place] [address] * VITAMIN B12 (05/08/2021 5:00 AM CDT) Vitamin B12 305 213 - 816 pg/mL 05/08/2021 7:45 AM CDT [facility] Blood BLOOD SPECIMEN / Unknown 05/08/2021 5:00 AM CDT 05/08/2021 6:46 AM CDT Adriel Monson MD LAB - CHEMISTRY SHANELL MENDES Performing Organization Address [facility] Co de Phone Number [facility] [address] [place] [address] * (ABNORMAL) TSH (05/08/2021 5:00 AM CDT) Only the most recent of3 resultswithin the time period is included. [facility] TSH 12.2092(H) 0.35 - 4.94 uIU/mL 05/08/2021 7:44 AM CDT [facility] Blood BLOOD SPECIMEN / Unknown 05/08/2021 5:00 AM CDT 05/08/2021 6:46 AM CDT Adriel Monson MD LAB - CHEMISTRY SHANELL MENDES [facility] [address] [place] [address] * (ABNORMAL) CBC W/O DIFFERENTIAL (05/03/2021 4:00 AM CDT) [facility] WBC 7.0 4.4 - 10.7 x10E9/L 05/03/2021 6:36 AM CDT [facility] RBC 3.34(L) 3.80 - 5.20 x10E12/L 05/03/2021 6:36 AM CDT [facility] Hemoglobin 9.7(L) 12.0 - 15.6 gm/dL 05/03/2021 6:36 AM CDT [facility] Hematocrit 30.0(L) 35.9 - 45.5 % 05/03/2021 6:36 AM CDT [facility] MCV 89.8 80.7 - 98.3 fl 05/03/2021 6:36 AM CDT [facility] MCH 29.0 26.7 - 34.0 pg 05/03/2021 6:36 AM CDT [facility] MCHC 32.3 30.8 - 35.9 gm/dL 05/03/2021 6:36 AM CDT [facility] Platelet Count 267 153 - 416 x10E9/L 05/03/2021 6:36 AM CDT [facility] RDW-CV 13.2 12.1 - 14.9 % 05/03/2021 6:36 AM CDT [facility] MPV 9.4 9.4 - 12.9 fl 05/03/2021 6:36 AM CDT [facility] Blood BLOOD SPECIMEN / Unknown 05/03/2021 4:00 AM CDT 05/03/2021 6:20 AM CDT Greer Pineda MD LAB - HEMATOLOGY OR DERABLES Performing Organization Address City/State/[facility] Co de Phone Number [facility] [address] [place] [address] * EMG (04/29/2021 9:29 PM CDT) Narrative 04/29/2021 9:29 PM CDT Ordered by an unspecified provider. Scanned Document NEUROLOGY ORDERABLES * CT ANGIO BRAIN AND NECK (04/27/2021 4:30 PM CDT) Anatomical Region Laterality Modality Head Computed Tomogra phy 04/27/2021 5:00 PM CDT Impressions 04/27/2021 5:09 PM CDT NO HEMODYNAMICALLY SIGNIFICANT STENOSIS. POSTSURGICAL CHANGES COMPATIBLE WITH RECENT RIGHT CAROTID ENDARTERECTOMY. CTA Brain: Stable unchanged patent and moderately atretic right M1 segment. There is patency of the right MCA system distal to the right M1. Normal caliber and wide patency of the bilateral anterior middle cerebral arteries. Normal caliber and wide patency of the posterior cerebral arteries, basilar artery, and additional branch vessels of the basilar artery. IMPRESSION: STABLE CHRONICALLY ATRETIC RIGHT M1 SEGMENT. NO NEW FINDINGS SINCE PRIOR EXAM. Findings discussed with Dr. Kevin at 5:08 PM on 04/27/2021. *Reading Radiologist: Jorden Real on 04/27/2021 at 5:09 PM Narrative 04/27/2021 5:[address] angiography neck with contrast CT angiography head with contrast CT 3D Reconstruction Clinical Indication: Acute left-sided facial droop. Acute stroke, CVA. COMPARISON: 04/23/2021. Technique: Axial CT images from the transverse aortic arch through the cranial vertex were obtained following the administration of 65 cc Isovue-370 intravenous contrast. Multiplanar reformatted, maximum intensity projection, and 3D volume rendered reconstructions of the arterial vasculature of the neck and brain was performed on an independent workstation. Findings: CTA Neck: Indirect assessment of the distal portions of the bilateral internal carotid arteries relative to the proximal portions reveals no hemodynamically significant stenosis. Postsurgical changes compatible with recent right carotid endarterectomy. No acute postsurgical complications. The right carotid endarterectomy is widely patent. There is wide patency of the common carotid, internal carotid, external carotid, and vertebral arteries. There is no evidence of vessel stenosis or vessel occlusion. Procedure Note Jorden Real MD - 04/27/2021 CT angiography neck with contrast CT angiography head with contrast CT 3D Reconstruction Clinical Indication: Acute left-sided facial droop. Acute stroke, CVA. COMPARISON: 04/23/2021. Technique: Axial CT images from the transverse aortic arch through the cranial vertex were obtained following the administration of 65 cc Isovue-370 intravenous contrast. Multiplanar reformatted, maximum intensity projection, and 3D volume rendered reconstructions of the arterial vasculature of the neck and brain was performed on an independent workstation. Findings: CTA Neck: Indirect assessment of the distal portions of the bilateral internal carotid arteries relative to the proximal portions reveals no hemodynamically significant stenosis. Postsurgical changes compatible with recent right carotid endarterectomy. No acute postsurgical complications. The right carotid endarterectomy is widely patent. There is wide patency of the common carotid, internal carotid, external carotid, and vertebral arteries. There is no evidence of vessel stenosis or vessel occlusion. IMPRESSION NO HEMODYNAMICALLY SIGNIFICANT STENOSIS. POSTSURGICAL CHANGES COMPATIBLE WITH RECENT RIGHT CAROTID ENDARTERECTOMY. CTA Brain: Stable unchanged patent and moderately atretic right M1 segment. There is patency of the right MCA system distal to the right M1. Normal caliber and wide patency of the bilateral anterior middle cerebral arteries. Normal caliber and wide patency of the posterior cerebral arteries, basilar artery, and additional branch vessels of the basilar artery. IMPRESSION: STABLE CHRONICALLY ATRETIC RIGHT M1 SEGMENT. NO NEW FINDINGS SINCE PRIOR EXAM. Findings discussed with Dr. Kevin at 5:08 PM on 04/27/2021. *Reading Radiologist: Jorden Real on 04/27/2021 at 5:09 PM Chelsie Kevin MD CT ORDERABLES * CT HEAD NON CONTRAST (04/27/2021 4:30 PM CDT) Only the most recent of4 resultswithin the time period is included. Anatomical Region Laterality Modality Head Computed Tomogra phy 04/27/2021 4:37 PM CDT Impressions 04/27/2021 4:39 PM CDT No acute intracranial abnormalities. Remote right cerebellar infarct. Remote lacunar infarct right larios radiata. Left maxillary and ethmoid sinus disease. *Reading Radiologist: Jorden Real on 04/27/2021 at 4:39 PM Narrative 04/27/2021 4:[address] SCAN OF THE BRAIN WITHOUT CONTRAST CLINICAL INDICATION: Acute onset of left-sided facial droop and left-sided extremity weakness. Acute stroke, CVA. COMPARISON: CT brain 04/23/2021. TECHNIQUE: Axial CT imaging of the brain was performed without contrast. Coronal and sagittal multiplanar reformatted images were created. FINDINGS: Chronic lacunar infarction right larios radiata. Stable remote right cerebellar infarct. There is no evidence of acute intracranial hemorrhage or recent cortical infarction. There is no mass or midline shift. Ventricular and sulcal size is within normal limits. There are no extra-axial fluid collections. The bony calvarium is intact. Moderate circumferential mucosal thickening left maxillary sinus. Mild mucosal thickening left ethmoid air cells.. Procedure Note Jorden Real MD - 04/27/2021 CT SCAN OF THE BRAIN WITHOUT CONTRAST CLINICAL INDICATION: Acute onset of left-sided facial droop and left-sided extremity weakness. Acute stroke, CVA. COMPARISON: CT brain 04/23/2021. TECHNIQUE: Axial CT imaging of the brain was performed without contrast. Coronal and sagittal multiplanar reformatted images were created. FINDINGS: Chronic lacunar infarction right larios radiata. Stable remote right cerebellar infarct. There is no evidence of acute intracranial hemorrhage or recent cortical infarction. There is no mass or midline shift. Ventricular and sulcal size is within normal limits. There are no extra-axial fluid collections. The bony calvarium is intact. Moderate circumferential mucosal thickening left maxillary sinus. Mild mucosal thickening left ethmoid air cells.. IMPRESSION No acute intracranial abnormalities. Remote right cerebellar infarct. Remote lacunar infarct right larios radiata. Left maxillary and ethmoid sinus disease. *Reading Radiologist: Charisse Realaman on 04/27/2021 at 4:39 PM Chelsie Kevin MD CT ORDERABLES * (ABNORMAL) URINALYSIS REFLEX TO MICROSCOPIC NO CULTURE (04/26/2021 9:30 AM CDT) Color UA Yellow Straw, Yellow 04/26/2021 9:44 AM CDT [facility] Clarity UA Clear Clear 04/26/2021 9:44 AM CDT [facility] Glucose UA Negative Negative 04/26/2021 9:44 AM CDT [facility] Bilirubin UA Negative Negative 04/26/2021 9:44 AM CDT [facility] Ketone UA Trace(A) Negative 04/26/2021 9:44 AM CDT [facility] Specific [place] UA 1.014 1.005 - 1.030 04/26/2021 9:44 AM CDT [facility] Blood UA Negative Negative 04/26/2021 9:44 AM CDT [facility] pH UA 6.0 5.0 - 8.0 pH 04/26/2021 9:44 AM CDT [facility] Protein UA 1+(A) Negative 04/26/2021 9:44 AM CDT [facility] Urobilinogen UA Negative Negative mg/dL 04/26/2021 9:44 AM CDT [facility] Nitrite UA Negative Negative 04/26/2021 9:44 AM CDT [facility] Leukocyte UA Negative Negative 04/26/2021 9:44 AM CDT [facility] Urine Microscopy Urine microscopy to follow 04/26/2021 9:44 AM CDT [facility] Urine URINE SPECIMEN OBTAINED BY CLEAN CATCH PROCEDURE / Unknown Collection / Unknown 04/26/2021 9:30 AM CDT 04/26/2021 9:33 AM CDT Narrative [facility] - 04/26/2021 9:44 AM CDT Chelsie Kevin MD LAB - URINALYSIS ORD ERABLES [facility] [address] [place] [address] * URINE MICROSCOPIC ONLY (04/26/2021 9:30 AM CDT) RBC UA 0-2 None Seen, 0-2, 3-5 # /hpf 04/26/2021 9:47 AM CDT [facility] WBC UA 0-5 None Seen, 0-5 # /hpf 04/26/2021 9:47 AM CDT [facility] Bacteria UA None Seen None Seen 04/26/2021 9:47 AM CDT [facility] Squamous Epithelial Cells None Seen None Seen, 0-2, 3-5 /hpf 04/26/2021 9:47 AM CDT [facility] Urine URINE SPECIMEN OBTAINED BY CLEAN CATCH PROCEDURE / Unknown Collection / Unknown 04/26/2021 9:30 AM CDT 04/26/2021 9:33 AM CDT Narrative [facility] - 04/26/2021 9:47 AM CDT Chelsie Kevin MD LAB - URINALYSIS ORD ERABLES [facility] [address] [place] [address] * ETT LINE PERFORMABLE (04/25/2021 3:48 PM CDT) Narrative Kyara Barreto APRN-CRNA - 04/25/2021 3:48 PM CDT Kyara Barreto APRN-CRNA 04/25/2021 3:49 PM Endotracheal Tube Placement: Patient Location: OR. Intubation Event Date/Time: 04/25/2021 2:40 PM Procedure: intubation ([id number]). Procedure Section: Sedation: under general anesthesia. Indications for Airway Management: anesthesia Induction: standard IV Patient Position: supine Mask Ventilation: easy. Blade Type: Sarai Blade Size: 3 Laryngoscopy View: grade 1 (full cords) Tube: endotracheal tube Placement: oral Tube type: cuff - inflated Tube Size (MM): 7 Depth of Insertion (CM): 21 Measured From: lips Cuff volume (mL): 5 Cuff Inflated With: air Number of Attempts: 1. Placement Verified By: direct visualization, bilateral breath sounds, chest auscultation and CO2 monitor Tube secured with: adhesive tape. Dentition unchanged? Yes Difficult Airway? No. Procedure Start Time: 04/25/2021 2:40 PM. Staff Section Anesthesia Provider: Kyara Barreto, MABLE, Performed the procedure Toño Singh DO GENERAL ANESTHESIA O RDERABLES * Arterial Line Placement (04/25/2021 3:46 PM CDT) Narrative EstevanKyara, JOHNNIESTRUCTURES TECHNICIAN - 04/25/2021 3:46 PM CDT [place], MABLE Miller 04/25/2021 3:48 PM Arterial Line Placement Procedure Note Patient Location: OR. Procedure: Arterial Line ([id number]). Procedure Section Indications: other - please comment (SURGERY). Consent: informed consent was obtained for the procedure. Patient Sedated? Yes Sedation Types: general anesthesia Skin Prep: Chloraprep. Location: left radial. Site Identification: palpation. Sterile Technique: small sterile fenestrated drape, sterile gloves, mask and cap. Local Anesthetic Used? No Number of Attempts: 1. Procedure Tolerance: tolerated well. Events: none. Staff Section Anesthesia Provider: Toño Singh DO, Performed the procedure Toño Singh DO GENERAL ANESTHESIA O RDERABLES * PATHOLOGY TISSUE EXAM (STL) (04/25/2021 3:17 PM CDT) Case Report Surgical Pathology Report Case: [id number] Authorizing Provider: Cem Lo MD Collected: 04/25/2021 03:17 PM Ordering Location: [address] NEURO/NEUROSRG Received: 04/26/2021 06:54 AM Pathologist: Joyce Johnston MD Specimen: Plaque, RIGHT CAROTID PLAQUE 04/27/2021 4:18 PM CDT [facility] Final Diagnosis Right carotid artery plaque, endarterectomy: -- Calcific atherosclerotic plaque 04/27/2021 4:18 PM CDT [facility] Gross Description Received in formalin in a single container labeled Moriah Reed, right carotid plaque, is a 2.2 x 1.1 x 0.5 cm yellow-javier fragment of tissue with calcifications. The specimen is entirely submitted in cassette A1 for decalcification. CH/zoila 04/27/2021 4:18 PM CDT [facility] Microscopic Description Histologic evaluation supports the diagnosis. 04/27/2021 4:18 PM CDT [facility] Disclaimer All histochemical and/or immunohistochemical results are interpreted with controls that demonstrate appropriate staining reactions before reporting results. Note on use of immunocytochemistry reagents: This test was developed and its performance characteristic determined by [facility], Department of Laboratory Medicine. It has not been cleared or approved by the U.S. Food and Drug Administration (FDA). The FDA has determined that such clearance or approval is not necessary. The test is used for clinical purpose. It should not be regarded as investigational or for research. This laboratory is certified to perform high complexity testing. The performance characteristics of the IHC/BHUMIKA assays have been validated on formalin-fixed paraffin embedded tissues only. The assays have not been validated on decalcified tissues. Results should be interpreted with caution. 04/27/2021 4:18 PM CDT [facility] Embedded Images 04/27/2021 4:18 PM CDT [facility] Pathology/Cytolo gy PLAQUE / Unknown 04/25/2021 3:17 PM CDT 04/26/2021 6:54 AM CDT Cem Lo MD LAB - PATHOLOGY/CYTO LOGY ORDERABLES [facility] [address] [place] [address] * IR CAROTID CEREBRAL ANGIOGRAM (04/24/2021 11:06 AM CDT) Only the most recent of2 resultswithin the time period is included. Anatomical Region Laterality Modality Head X-Ray Angiograph y Narrative 05/10/2021 4:23 PM CDT See Notes. Vickie Pike MD IR ORDERABLES * (ABNORMAL) HEMOGLOBIN A1C (04/24/2021 3:41 AM CDT) Only the most recent of4 resultswithin the time period is included. Hemoglobin A1c 7.4(H) 4.2 - 5.6 % 04/24/2021 4:29 AM CDT [facility] Estimated Average Glucose 166 mg/dL 04/24/2021 4:29 AM CDT [facility] Blood BLOOD SPECIMEN / Unknown Venipuncture / Unknown 04/24/2021 3:41 AM CDT 04/24/2021 3:56 AM CDT [facility] - 04/24/2021 4:29 AM CDT The following cutoff levels are recommended by [place] [employer]. A1c > 6.5% : considered [...] Pike MD LAB - CHEMISTRY SHANELL MENDES [facility] Organization Address City/State/ZIP Co de Phone Number [facility] [address] [place] [address] * (ABNORMAL) LIPID PROFILE (04/24/2021 3:41 AM CDT) [facility] Cholesterol 167 <200 mg/dL 04/24/2021 4:48 AM CDT [facility] Triglycerides 131 <150 mg/dL 04/24/2021 4:48 AM CDT [facility] HDL Cholesterol 37(L) >40 mg/dL 08/22/202 1 4:48 AM CDT [facility] LDL Calculated 104 <130 mg/dL 04/24/2021 4:48 AM CDT [facility] VLDL Calculated 26 <=30 mg/dL 4:48 AM CDT [facility] Chol HDL Ratio 4.5(H) <4.5 04/24/2021 4:48 AM CDT [facility] LDL/HDL Ratio 2.8 <5.0 04/24/2021 4:48 AM CDT [facility] Blood BLOOD SPECIMEN / Unknown Venipuncture / Unknown 04/24/2021 3:41 AM CDT 04/24/2021 3:56 AM CDT Vickie Pike MD LAB - CHEMISTRY SHANELL MENDSE [facility] Organization Address City/State/ZIP Co de Phone Number [facility] [address] [place] [address] * CT ANGIO HEAD NECK STROKE (04/23/2021 3:40 PM CDT) Anatomical Region Laterality Modality Head Computed Tomogra phy 04/23/2021 3:40 PM CDT Impressions 04/23/2021 3:53 PM CDT 1. 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 2. Absent normal right M1 segment. This is occluded or perhaps high-grade stenosis but of uncertain chronicity. A discrete thrombus is not confidently seen but could certainly be acute. 3. Somewhat atretic basilar artery but otherwise patent. 4. Stenosis at the origin of the left common carotid artery. 5. Dr. Perez was called with these results on April 23 and 3:50 PM *Reading Radiologist: Valdemar Walker on 04/23/2021 at 3:53 PM Narrative 04/23/2021 3:53 PM CDT PROCEDURE TITLE: CT ANGIO BRAIN NECK STROKE*[id number] HISTORY: Cerebral infarction, unspecified RELEVANT COMPARISON: Head CT done the same day Additional history (none relevant if blank): Left-sided weakness TECHNIQUE: Helical CT angiography acquisition of head Head and Neck with intravenous iodinated contrast using 80 cc's of Isovue 370. Arterial dissection protocol. 3-D post processing of the raw data, specifically MIP, performed with image capture by the technologist. All CT scans at [facility] are performed using dose optimization techniques as appropriate to a performed exam to include AEC and Adjustment of mA and/or kV according to patient size (as appropriate to indication/reason for exam). There are atherosclerotic changes in the thoracic aortic arch with mild stenosis at the origin of the left carotid artery. The vertebral arteries are patent with left-sided dominance. The vertebral arteries extend up to a basilar artery which is somewhat atretic. The posterior cerebral arteries are patent and do arise from the posterior circulation with the right with additional communication to the anterior circulation. The common carotid arteries are patent. There is plaquing at each carotid bulb with perhaps 50% stenosis on the left but higher grade stenosis perhaps up to 70% on the right. The internal carotid arteries are patent with significant plaquing in the cavernous portion of each carotid artery. The A1 segments are patent. The right M1 segment is not visualized while the left M1 segment is patent. There is some reconstitution of the right middle cerebral arteries peripherally. There is an old right cerebellar infarct. There is no abnormal enhancement intracranially. Procedure Note Valdemar Walker MD - 04/23/2021 PROCEDURE TITLE: CT ANGIO BRAIN NECK STROKE*[id number] HISTORY: Cerebral infarction, unspecified RELEVANT COMPARISON: Head CT done the same day Additional history (none relevant if blank): Left-sided weakness TECHNIQUE: Helical CT angiography acquisition of head Head and Neck with intravenous iodinated contrast using 80 cc's of Isovue 370. Arterial dissection protocol. 3-D post processing of the raw data, specifically MIP, performed with image capture by the technologist. All CT scans at [facility] are performed using dose optimization techniques as appropriate to a performed exam to include AEC and Adjustment of mA and/or kV according to patient size (as appropriate to indication/reason for exam). There are atherosclerotic changes in the thoracic aortic arch with mild stenosis at the origin of the left carotid artery. The vertebral arteries are patent with left-sided dominance. The vertebral arteries extend up to a basilar artery which is somewhat atretic. The posterior cerebral arteries are patent and do arise from the posterior circulation with the right with additional communication to the anterior circulation. The common carotid arteries are patent. There is plaquing at each carotid bulb with perhaps 50% stenosis on the left but higher grade stenosis perhaps up to 70% on the right. The internal carotid arteries are patent with significant plaquing in the cavernous portion of each carotid artery. The A1 segments are patent. The right M1 segment is not visualized while the left M1 segment is patent. There is some reconstitution of the right middle cerebral arteries peripherally. There is an old right cerebellar infarct. There is no abnormal enhancement intracranially. IMPRESSION 1. 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 2. Absent normal right M1 segment. This is occluded or perhaps high-grade stenosis but of uncertain chronicity. A discrete thrombus is not confidently seen but could certainly be acute. 3. Somewhat atretic basilar artery but otherwise patent. 4. Stenosis at the origin of the left common carotid artery. 5. Dr. Perez was called with these results on April 23 and 3:50 PM *Reading Radiologist: Valdemar Walker on 04/23/2021 at 3:53 PM [address] Perez MD [address] ORDERABLES * Critical Care (04/23/2021 2:55 PM CDT) Narrative Roberto Perez MD - 04/23/2021 2:55 PM CDT Roberto Perez MD 04/23/2021 4:27 PM Critical Care Performed by: Roberto Perez MD Authorized by: Roberto Perez MD Critical care provider statement: Critical care time (minutes): 35 Critical care was necessary to treat or prevent imminent or life-threatening deterioration of the following conditions: COMM[employer]OPMENT OFFICER failure or compromise Critical care was time spent personally by me on the following activities: Development of treatment plan with patient or surrogate, discussions with consultants, examination of patient, evaluation of patient's response to treatment, ordering and performing treatments and interventions and re-evaluation of patient's condition I assumed direction of critical care for this patient from another provider in my specialty: no Roberto Perez MD PROCEDURE/MINOR SURG ICAL ORDERABLES * XR CHEST PA AND LATERAL (03/13/2021 9:04 PM CDT) Only the most recent of3 resultswithin the time period is included. Anatomical Region Laterality Modality Chest Radiographic Em ging 03/14/2021 8:03 AM CDT Impressions 03/14/2021 8:03 AM CDT No active disease. *Reading Radiologist: Valdemar Walker on 03/14/2021 at 8:03 AM Narrative 03/14/2021 8:03 AM CDT PROCEDURE TITLE: XR CHEST 2VW*[id number] HISTORY: Weakness RELEVANT COMPARISON: March 09 Additional history (none relevant if blank): ___ Findings: The heart is mild to moderately enlarged. The aorta is mildly ectatic. There is hyperinflation of the lung baez The lungs are clear. There is no confluent infiltrate or effusion. There is no pneumothorax. No mass or adenopathy is seen. Procedure Note Valdemar Walker MD - 03/14/2021 PROCEDURE TITLE: XR CHEST 2VW*[id number] HISTORY: Weakness RELEVANT COMPARISON: March 09 Additional history (none relevant if blank): ___ Findings: The heart is mild to moderately enlarged. The aorta is mildly ectatic. There is hyperinflation of the lung baez The lungs are clear. There is no confluent infiltrate or effusion. There is no pneumothorax. No mass or adenopathy is seen. IMPRESSION No active disease. *Reading Radiologist: Valdemar Walker on 03/14/2021 at 8:03 AM Wily Denis DO DIAGNOSTIC IMAGING O RDERABLES * SARS-COV-2 (COVID-19) INTERNAL (03/13/2021 8:29 PM CDT) COVID-19 PCR Not detected Not detected 03/14/2021 1:25 PM CDT [facility] Microbiology SPECIMEN FROM NASOPHARYNGEAL STRUCTURE / Unknown Collection / Unknown 03/13/2021 8:29 PM CDT 03/13/2021 9:41 PM CDT Narrative [facility] - 03/14/2021 1:25 PM CDT This nucleic acid amplification assay performance was validated by [facility]. This test has been authorized by the Food and Drug administration (FDA)under an Emergency Use Authorization (EUA). This test has been validated in accordance with the FDA's guidance document Policy for Diagnostic Testing in Laboratories Certified to perform High Complexity Testing under CLIA prior to Emergency Use Authorization for Coronavirus Disease-2019 during the Public Health Emergency issued on November 01, 2019. FDA independent review of this validation is pending. This test is only authorized for the duration of time the declaration that circumstances exist justifying the authorization of emergency use of in vitro diagnostic tests for detection of SARS-CoV-2 virus and/or diagnosis of COVID-19 infection under section 564(b)(1) of the Act, 21 U.S.C 360bbb-3 (b)(1), unless the authorization is terminated or revoked sooner. Fact Sheets for this EUA assay are available upon request. Wily Denis DO LAB - MICROBIOLOGY O LUISANA [facility] [address] [facility] [place] [address], [facility] [phone] * MAGNESIUM BLOOD (03/13/2021 8:29 PM CDT) Only the most recent of5 resultswithin the time period is included. Magnesium 2.0 1.6 - 2.6 mg/dL 03/13/2021 9:01 PM CDT [facility] Blood BLOOD SPECIMEN / Unknown Venipuncture / Unknown 03/13/2021 8:29 PM CDT 03/13/2021 8:33 PM CDT Wily Denis DO LAB - CHEMISTRY SHANELL MENDES [facility] [address] [place] [id number] * (ABNORMAL) SALICYLATE LEVEL BLOOD (03/13/2021 8:29 PM CDT) Salicylate <5.0(L) 15.0 - 30.0 mg/dL 03/13/2021 9:01 PM CDT [facility] Blood BLOOD SPECIMEN / Unknown Venipuncture / Unknown 03/13/2021 8:29 PM CDT 03/13/2021 8:33 PM CDT Wily Denis DO LAB - CHEMISTRY SHANELL MENDES Performing Organization Address [facility] Co de Phone Number [facility] [address] [place] [address] * (ABNORMAL) ACETAMINOPHEN LEVEL (03/13/2021 8:29 PM CDT) Acetaminophen <3.0(L) 10.0 - 30.0 ug/mL 03/13/2021 9:01 PM CDT [facility] Blood BLOOD SPECIMEN / Unknown Venipuncture / Unknown 03/13/2021 8:29 PM CDT 03/13/2021 8:33 PM CDT Narrative [facility] - 03/13/2021 9:01 PM CDT [facility] ACETAMINOPHEN COMMENT Critical values: 4 Hours Post Ingestion: Critical value > 200 g/mL 12 Hours Post Ingestion: Critical value > 50 g/mL For acute ingestion, please refer to Acetaminophen nomogram to determine the risk of toxicity based on time since ingestion and acetaminophen level (see link provided). Note the nomogram disclaimer. WARNING: Assessing the potential toxicity of an acetaminophen level on a standard risk nomogram must take into consideration many factors including any uncertainty of the time since ingestion or the possibility of other medications that may alter the peak level. Contact the [facility] at or reserved for healthcare professionals to assist you in evaluating potentially toxic acetaminophen levels. Wily Hernandezjessica LAB - CHEMISTRY SHANELL MENDES Performing Organization Address [facility] Co de Phone Number [facility] [address] [place] [address] * PROCALCITONIN LEVEL (03/10/2021 6:54 AM CDT) Procalcitonin 0.09 <0.10 ng/mL 03/10/2021 12:13 PM CDT [facility] Blood BLOOD SPECIMEN / Unknown Lab Venipuncture / Unknown 03/10/2021 6:54 AM CDT 03/10/2021 6:58 AM CDT Narrative [facility] - 03/10/2021 12:13 PM CDT The change in procalcitonin (PCT) concentration over time provides support in decision making on antibiotic discontinuation for suspected or confirmed septic patients. Follow-up samples should be tested once every 1-2 days based upon physician discretion taking into account the patient s evolution and progress. Consider discontinuation of antibiotic therapy if the PCT current is <= 0.5 ng/mL or if the delta PCT is > 80%. Duration of antibiotics should not be determined solely on PCT; established guidelines for the indication should be followed. PCT peak: Highest observed PCT concentration PCT current: Most recent PCT concentration Calculate delta PCT using the following equation: Delta PCT = PCT Peak PCT current X 100% PCT Peak The Change in Procalcitonin Calculator is available at [email or web address]-TVB-Fotdvzmiaa.Soci Ads If clinical picture has not improved and PCT remains high, reevaluate and consider treatment failure or other causes. Bill Lane MD LAB - CHEMI STRY ORDERABLES [facility] [address] [place] [id number] * ECHOCARDIOGRAM 2D WITH DOPPLER (03/09/2021 3:45 PM CDT) 03/09/2021 3:45 PM CDT Narrative Procedure Note Calixto Ledezma MD - 03/10/[address] [address] Echocardiography Examination Transthoracic Name: MORIAH REED [facility]#: MR#: [id number] Admission Number: [id number] Study Date: 03/10/2021 Study Time: 11:55 AM Date Of : 1940 Age: 80 years Height: ( ) Weight: ( ) BSA: Gender: Female Blood Pressure: / Heart Rate: Exam Details Procedure Ordered: ECHOCARDIOGRAM 2D W/DOPPLER Procedure Components: Complete 2D, M-mode, complete spectral Doppler, color Doppler Procedure Status: Routine study Image Quality: Adequate Facility Location: [facility] Indication: Murmur, Atrial Fibrillation Procedure Chart Calculator: Alireza Victor RDCS Ordering Provider: SAMANTHA VAUHGN Reading Physician: Calixto Ledezma MD Reading Group: [facility] Conclusions Left Ventricle: Left ventricle is normal in size. Normal global systolic left ventricular function. EF 60 %. Left ventricle wall thickness is moderately increased. There are no regional wall motion abnormalities. Diastolic function is indeterminate due to atrial fibrillation. Left Atrium: The left atrium is severely dilated. Mitral Valve: Mild mitral regurgitation. Tricuspid Valve: Mild-moderate tricuspid regurgitation. Patient: MORIAH REED Study Date: 03/10/2021 11:55 AM Page 1 of 4 Follow up: Findings Left Ventricle: Left ventricle is normal in size. Normal global systolic left ventricular function. EF evaluated by biplane method of disks. EF 60 %. Left ventricle wall thickness is moderately increased. There are no regional wall motion abnormalities. Diastolic function is indeterminate due to atrial fibrillation. Right Ventricle: Normal size right ventricle. Right ventricular wall thickness is normal. Right ventricular systolic function is normal. Pulmonary artery pressure normal. Left Atrium: The left atrium is severely dilated. Right Atrium: The right atrium is normal in size. Mitral Valve: Mitral leaflets exhibit normal cuspal separation. Mild mitral regurgitation. No mitral valve stenosis. Aortic Valve: Aortic leaflets exhibit normal cuspal separation. No aortic valve regurgitation. There is no aortic stenosis. Tricuspid Valve: Tricuspid valve leaflets are normal. Mild-moderate tricuspid regurgitation. No tricuspid valve stenosis. Pulmonic Valve: Pulmonic leaflets exhibit normal cuspal separation. No pulmonic valve regurgitation is evident. There is no pulmonic valve stenosis. Aorta: The aorta is normal. No dilation of the ascending aorta. The aortic root exhibits normal size. Great Vessels: IVC: The inferior vena cava is normal in size and course. Pericardium: The pericardium is normal in appearance. No pericardial effusion. Measurements Anatomy Label Value Normal Value Aorta AoRoot, MM 3.2 cm (2.2cm - 3.7cm) Aortic Valve AV Vmean 0.84 m/s Aortic Valve AV VTI 26.78 cm Aortic Valve AV PGmax 7 mmHg Aortic Valve AV PGmean 3 mmHg Aortic Valve AV Vmax, Curve 1.29 m/s (1m/s - 1.7m/s) Aortic Valve LVOT VTI / AV VTI 0.58 Aortic Valve JUVENTINO D (continuity eq. VTI) 1.8 cm Aortic Valve LVOT Vmax / AV Vmax 0.56 Interventricular septum IVSd, MM 1.2 cm (0.6cm - 0.9cm) Interventricular septum IVSd, 2D 1.5 cm (0.6cm - 1.1cm) Left Atrium LADs, MM 5.1 cm (2.7cm - 3.8cm) Left Atrium LADs, 2D 3.9 cm (2.7cm - 3.8cm) Left Atrium LA Area s, A4C 33.8 cm (0cm - 20cm ) Left Atrium LA Area s, A2C 22.3 cm (0cm - 20cm ) Patient: MORIAH REED Study Date: 03/10/2021 11:55 AM Page 2 of 4 Left Atrium LAESV, MOD4 151 ml (22ml - 52ml) Left Atrium LAESV, MOD2 67 ml (22ml - 52ml) Left Atrium LA/AO Ratio, MM 1.58 Left Ventricle LVOT Vmax 0.72 m/s (0.7m/s - 1.1m/s) Left Ventricle LVOTd 2 cm (1.8cm - 2cm) Left Ventricle LVOT VTI 15.61 cm (18cm - 22cm) Left Ventricle LVOT PGmax 2 mmHg Left Ventricle LVEF visual 60 % (55% - 75%) Left Ventricle LVDd, MM 5.8 cm (3.9cm - 5.3cm) Left Ventricle LVDd, 2D 4.3 cm (3.7cm - 5.2cm) Left Ventricle LVDs, MM 4 cm (2cm - 3.8cm) Left Ventricle LVDs, 2D 3 cm (2.2cm - 3.5cm) Left Ventricle LVPWd, MM 1.2 cm (0.6cm - 0.9cm) Left Ventricle LVPWd, 2D 1.5 cm (0.6cm - 0.9cm) Left Ventricle FS, MM 31.03 % (27% - 45%) Left Ventricle FS, 2D 30.23 % Left Ventricle LVEDV, BP 52 ml (56ml - 104ml) Left Ventricle LVESV, BP 31 ml (19ml - 49ml) Left Ventricle EPSS, MM 0.7 cm (0.2cm - 0.7cm) Left Ventricle LVOT PGmean 1 mmHg Left Ventricle LVOT Vmean 0.49 m/s Left Ventricle Diastolic MV E Vmax 0.83 m/s Function Left Ventricle Diastolic MV A Vmax 0.22 m/s Function Left Ventricle Diastolic MV E/A 3.77 Function Left Ventricle Diastolic MV E/E' lateral 11.03 Function Left Ventricle Diastolic MV E/E' septal 20.09 (0.45 - 1.25) Function Left Ventricle Diastolic MV DT 164 ms Function Left Ventricle Diastolic MV E' septal 0.04 m/s Function Left Ventricle Diastolic MV E' lateral 0.08 m/s Function Left Ventricle Diastolic MV E/E' mean 13.83 Function Left Ventricle Diastolic MV E' mean 0.06 m/s Function Mitral Valve MV Dec [place] 5.22 m/s Pulmonic Valve PV PGmax 2 mmHg Pulmonic Valve PV Vmax, [place] 0.64 m/s (0.6m/s - 0.9m/s) Right Ventricle RVDd, 2D 2.2 cm (1.9cm - 3.8cm) Right Ventricle Diastolic TR Pmax 36 mmHg Function Tricuspid Valve TR Vmax 3 m/s Patient: MORIAH REED Study Date: 03/10/2021 11:55 AM Page 3 of 4 (No Signature Object) Patient: MORIAH REED Study Date: 03/10/2021 11:55 AM Page 4 of 4 Samantha Vaughn PA-C ECHO ORDERABLES [facility] * Critical Care (03/09/2021 12:05 PM CDT) Narrative Lai Vázquez DO - 03/09/2021 12:05 PM CDT Lai Vázquez DO 03/11/2021 10:57 AM Critical Care Performed by: Lai Vázquez DO Authorized by: Lai Vázquez DO Critical care provider statement: Critical care time (minutes): 35 Critical care time was exclusive of: Separately billable procedures and treating other patients and teaching time Critical care was necessary to treat or prevent imminent or life-threatening deterioration of the following conditions: Cardiac failure Critical care was time spent personally by me on the following activities: Development of treatment plan with patient or surrogate, discussions with consultants, evaluation of patient's response to treatment, examination of patient, obtaining history from patient or surrogate, ordering and performing treatments and interventions, ordering and review of laboratory studies, ordering and review of radiographic studies, pulse oximetry, re-evaluation of patient's condition and review of old charts I assumed direction of critical care for this patient from another provider in my specialty: no Lai Vázquez DO PROCEDURE/MINOR SURG ICAL ORDERABLES * MAMMO SCREENING DIGITAL IMAGE BILAT G0202 (06/02/2020 1:08 PM CDT) Only the most recent of8 resultswithin the time period is included. Anatomical Region Laterality Modality Breast Bilateral Mammography 06/02/2020 1:33 PM CDT Narrative 06/02/2020 1:33 PM CDT MAMMOGRAMS SCREENING BILATERAL WITH CAD CORRELATION DATE: 06/02/2020 PRIOR: 10/29/2018 HISTORY: Screening. TECHNIQUE: Bilateral digital craniocaudad (CC) and mediolateral oblique (MLO) views. 3D Tomosynthesis. CAD. DENSITY: Scattered fibroglandular densities FINDINGS: No suspicious mass or microcalcification. ASSESSMENT: Negative, BI-RADS 1. RECOMMENDATIONS: Annual screening. The above findings should be correlated with physical examination. A relatively nonspecific study should not preclude additional evaluation if suspicious findings are present clinically. An [employer] certified facility. [facility] utilize [address] as a reminder system to notify patients of their next recommended mammograms. *Reading Radiologist: Octavio Francisco on 06/02/2020 at 1:33 PM Sher Medina MD MAMMO ORDERABLES * POTASSIUM BLOOD (10/06/2014 4:48 PM DIRECTOR OF CAREER SERVICES) Potassium 4.0 3.5 - 5.1 mmol/L 10/06/2014 5:05 PM DIRECTOR OF CAREER SERVICES [facility] Blood BLOOD SPECIMEN / Unknown 10/06/2014 4:48 PM DIRECTOR OF CAREER SERVICES 10/06/2014 4:53 PM DIRECTOR OF CAREER SERVICES Christy James MD LAB - CHEMISTRY SHANELL Henderson Organization Address City/State/ZIP Co de Phone Number [facility] [address] [place] [address] * (ABNORMAL) URINALYSIS ROUTINE W/REFLEX TO CULTURE (10/06/2014 2:26 AM DIRECTOR OF CAREER SERVICES) Color UA Yellow Straw, Yellow, Dark Yellow 10/06/2014 2:56 AM [facility] Clarity UA Clear 10/06/2014 2:56 AM [facility] Specific [place] UA >1.030(H) 1.005 - 1.030 10/06/2014 2:56 AM [facility] pH UA 7.5 5.0 - 8.0 pH 10/06/2014 2:56 AM [facility] Protein UA 2+(A) Negative 10/06/2014 2:56 AM [facility] Blood UA 3+(A) Negative 10/06/2014 2:56 AM [facility] Leukocyte UA Trace(A) Negative 10/06/2014 2:56 AM [facility] Nitrite UA Negative Negative 10/06/2014 2:56 AM [facility] Glucose UA Trace(A) Negative 10/06/2014 2:56 AM [facility] Ketone UA Trace(A) Negative 10/06/2014 2:56 AM [facility] Bilirubin UA Negative Negative 10/06/2014 2:56 AM [facility] Urobilinogen UA 0.2 0.1 - 1.0 EU/dL 10/06/2014 2:56 AM [facility] WBC UA Auto 20-50(A) 0-2, 2-5 #/hpf 10/06/2014 2:56 AM [facility] RBC UA Auto >100(A) 0-2, 2-5 #/hpf 10/06/2014 2:56 AM [facility] Epithelial Cell UA Auto 0-2 0-2, 2-5 #/hpf 10/06/2014 2:56 AM [facility] Bacteria UA Auto None seen None seen 10/06/2014 2:56 AM [facility] Hyaline Casts UA Auto 2-5(A) 0 - 2 #/lpf 10/06/2014 2:56 AM [facility] Reflex Status Culture to follow 10/06/2014 2:56 AM DIRECTOR OF CAREER SERVICES [facility] Urine URINE SPECIMEN OBTAINED BY CLEAN CATCH PROCEDURE / Unknown 10/06/2014 2:26 AM DIRECTOR OF CAREER SERVICES 10/06/2014 2:37 AM DIRECTOR OF CAREER SERVICES Christy James MD LAB - URINALYSIS ORD ERABLES Performing Organization Address [facility] de Phone Number [facility] [address] [place] [address] * CULTURE URINE (10/06/2014 2:26 AM DIRECTOR OF CAREER SERVICES) Culture No Growth (<1,000 CFU/mL) KENNA 10/08/2014 4:16 AM DIRECTOR OF CAREER SERVICES [facility] Urine URINE SPECIMEN OBTAINED BY CLEAN CATCH PROCEDURE / Unknown 10/06/2014 2:26 AM DIRECTOR OF CAREER SERVICES 10/06/2014 2:37 AM DIRECTOR OF CAREER SERVICES Christy James MD LAB - MICROBIOLOGY O RDERABLES Performing Organization Address [facility] de Phone Number [facility] [address] [place] [address], [facility] * PHOSPHORUS BLOOD (10/06/2014 2:25 AM DIRECTOR OF CAREER SERVICES) Phosphorus 3.1 2.5 - 4.9 mg/dL 10/06/2014 3:07 AM DIRECTOR OF CAREER SERVICES [facility] Blood BLOOD SPECIMEN / Unknown 10/06/2014 2:25 AM DIRECTOR OF CAREER SERVICES 10/06/2014 2:37 AM DIRECTOR OF CAREER SERVICES Raysa Segundo APRN-QA LEAD LAB - CHEMISTRY ORDERABLES Performing Organization Address [facility] de Phone Number [facility] [address] [place], [place] [phone] * CULTURE VRE (10/05/2014 9:18 PM DIRECTOR OF CAREER SERVICES) Culture Negative for VRE KENNA 10/07/2014 10:22 AM [facility] Stool RECTAL SWAB / Unknown 10/05/2014 9:18 PM DIRECTOR OF CAREER SERVICES 10/05/2014 9:22 PM DIRECTOR OF CAREER SERVICES Christy James MD LAB - MICROBIOLOGY O RDERAANASTASIA Performing Organization Address [facility] Co de Phone Number [facility] [address] [place] [address], [facility] * CULTURE MRSA (10/05/2014 9:18 PM DIRECTOR OF CAREER SERVICES) Culture Negative for MRSA KENNA 10/08/2014 11:20 AM DIRECTOR OF CAREER SERVICES [facility] Microbiology SPECIMEN FROM NASAL FOSSAE / Unknown 10/05/2014 9:18 PM DIRECTOR OF CAREER SERVICES 10/05/2014 9:22 PM DIRECTOR OF CAREER SERVICES Christy James MD LAB - MICROBIOLOGY O RDERABLES Performing Organization Address [facility] Co de Phone Number [facility] [address] [place] [address], [facility] * (ABNORMAL) ACT - POINT OF CARE (10/05/2014 4:04 PM DIRECTOR OF CAREER SERVICES) Only the most recent of3 resultswithin the time period is included. ACT POCT 249(A) 125 - 187 Seconds [facility] POCT TESTING QC Verified Yes Yes [facility] POC T TESTING Blood specimen (specimen) BLOOD SPECIMEN / Unknown 10/05/2014 4:04 PM DIRECTOR OF CAREER SERVICES Yesy Sheriff MD LAB - POINT OF CARE ORDERABLES Performing Organization Address [facility] Co de Phone Number [facility] [address] [place] [address], [facility] * CT ABDOMEN AND PELVIS WITH IV CONTRAST (10/05/2014 1:45 PM DIRECTOR OF CAREER SERVICES) Anatomical Region Laterality Modality Abdomen, Pelvis Computed Tomogra phy 10/05/2014 2:03 PM DIRECTOR OF CAREER SERVICES Impressions 10/05/2014 2:06 PM DIRECTOR OF CAREER SERVICES CT of the abdomen and pelvis demonstrates no focal inflammatory process or other acute appearing abnormality. This examination was transcribed using the [employer] voice recognition system without human restaurant culinary manager. In an effort to expedite patient care, this report has not been adjusted for typographical, grammatical, and syntax by a trained medical billing supervisor. Narrative 10/05/2014 2:06 PM DIRECTOR OF CAREER SERVICES CT Abdomen with Contrast Indication: Abdominal pain and constipation Technique: 80 cc Omnipaque 350 was administered for both PE study and CT of the abdomen. No additional contrast was administered for CT of abdomen. was administered intravenously, and axial images were obtained through the abdomen and pelvis. Findings: There is a rounded area of low-attenuation in the left lobe of the liver anteriorly with well-circumscribed margins and measuring approximately 7 mm in diameter. This most likely represents a hepatic cyst. Similar lesion is seen at the dome measuring approximately 6 mm in diameter. The spleen is normal in size and uniform in enhancement. No dilated intrahepatic or extrahepatic bile ducts are present. There is no inflammation adjacent to an intact gallbladder. Adrenal glands and pancreas appear unremarkable. Renal enhancement is symmetric. There are 2 presumed cysts at the lower pole of the left kidney. A small direct hiatal hernia is incidentally noted to be present. Volume of stool throughout the colon is within normal limits. Bowel within the abdomen is normal in caliber. There is no abdominal aortic aneurysm or pathologically enlarged retroperitoneal lymphadenopathy. Pelvis: Bowel within the pelvis is normal in caliber. Contours of the urinary bladder are normal. No free fluid can be seen within the pelvis. The appendix is visualized in the right lower quadrant and appears normal. The uterus is surgically absent. There is a surgical material posterior to the bladder, presumed secondary to hysterectomy. A few sigmoid diverticuli are seen without evidence of diverticulitis. Procedure Note Keke Mahajan MD - 10/05/2014 CT Abdomen with Contrast Indication: Abdominal pain and constipation Technique: 80 cc Omnipaque 350 was administered for both PE study and CT of the abdomen. No additional contrast was administered for CT of abdomen. was administered intravenously, and axial images were obtained through the abdomen and pelvis. Findings: There is a rounded area of low-attenuation in the left lobe of the liver anteriorly with well-circumscribed margins and measuring approximately 7 mm in diameter. This most likely represents a hepatic cyst. Similar lesion is seen at the dome measuring approximately 6 mm in diameter. The spleen is normal in size and uniform in enhancement. No dilated intrahepatic or extrahepatic bile ducts are present. There is no inflammation adjacent to an intact gallbladder. Adrenal glands and pancreas appear unremarkable. Renal enhancement is symmetric. There are 2 presumed cysts at the lower pole of the left kidney. A small direct hiatal hernia is incidentally noted to be present. Volume of stool throughout the colon is within normal limits. Bowel within the abdomen is normal in caliber. There is no abdominal aortic aneurysm or pathologically enlarged retroperitoneal lymphadenopathy. Pelvis: Bowel within the pelvis is normal in caliber. Contours of the urinary bladder are normal. No free fluid can be seen within the pelvis. The appendix is visualized in the right lower quadrant and appears normal. The uterus is surgically absent. There is a surgical material posterior to the bladder, presumed secondary to hysterectomy. A few sigmoid diverticuli are seen without evidence of diverticulitis. IMPRESSION CT of the abdomen and pelvis demonstrates no focal inflammatory process or other acute appearing abnormality. This examination was transcribed using the [employer] voice recognition system without human restaurant culinary manager. In an effort to expedite patient care, this report has not been adjusted for typographical, grammatical, and syntax by a trained medical billing supervisor. Tom De Anda MD CT ORDERABLES * CT CHEST PE (10/05/2014 1:43 PM DIRECTOR OF CAREER SERVICES) Anatomical Region Laterality Modality Chest Computed Tomogra phy 10/05/2014 2:06 PM DIRECTOR OF CAREER SERVICES Impressions 10/05/2014 2:08 PM DIRECTOR OF CAREER SERVICES No pulmonary embolus is identified. This examination was transcribed using the [employer] voice recognition system without human restaurant culinary manager. In an effort to expedite patient care, this report has not been adjusted for typographical, grammatical, and syntax by a trained medical billing supervisor. Narrative 10/05/2014 2:08 PM DIRECTOR OF CAREER SERVICES CT Chest with Contrast INDICATION:Shortness of breath TECHNIQUE: The CT scan of the chest is carried out during the administration of 80cc of Omnipaque 350 utilizing the special pulmonary embolus technique. 2D computer generated reformations were created in the coronal plane. FINDINGS: The pulmonary arteries are well seen down through the fourth order branches and no emboli are identified. The mediastinal and hilar structures are unremarkable. Atelectasis is present at the posterior lung baez bilaterally. There is no pneumothorax. A small pericardial effusion measures approximately 10 mm in greatest thickness. The heart is enlarged. Procedure Note Keke Mahajan MD - 10/05/2014 CT Chest with Contrast INDICATION:Shortness of breath TECHNIQUE: The CT scan of the chest is carried out during the administration of 80cc of Omnipaque 350 utilizing the special pulmonary embolus technique. 2D computer generated reformations were created in the coronal plane. FINDINGS: The pulmonary arteries are well seen down through the fourth order branches and no emboli are identified. The mediastinal and hilar structures are unremarkable. Atelectasis is present at the posterior lung baez bilaterally. There is no pneumothorax. A small pericardial effusion measures approximately 10 mm in greatest thickness. The heart is enlarged. IMPRESSION No pulmonary embolus is identified. This examination was transcribed using the [employer] voice recognition system without human restaurant culinary manager. In an effort to expedite patient care, this report has not been adjusted for typographical, grammatical, and syntax by a trained medical billing supervisor. Tom De Anda MD CT ORDERABLES * CARDIAC CATH PROCEDURE (10/05/2014 12:00 PM DIRECTOR OF CAREER SERVICES) 10/05/2014 12:0 0 PM DIRECTOR OF CAREER SERVICES Narrative Transcriptions Yesy Sheriff MD - 10/06/2014 12:22 PM CST [facility] CARDIAC CATHETERIZATION PATIENT: MORIAH REED MR#: [id number] ADMIT DATE: 10/05/2014 CSN: [id number] PROCEDURE DATE: 10/05/2014 :1940 PHYSICIAN: Yesy Sheriff MD ROOM: REFERRING PHYSICIAN: PROCEDURE: Drug-eluting stent deployment in the 1st diagonal branch. ARTERIAL SHEATH: A 6-[place] short guiding catheter, 6-[place] CLS 3.5guiding catheter. GUIDEWIRE: A 0.014 Whisper. STENT: A 2.25 x 8 mm Alpine drug-eluting stent. PROCEDURAL NOTE: Initial ACT was approximately 170 seconds after having received 5000 units of heparin in the emergency room. She was given an additional 2000 units of heparin. Guiding catheter was seated andguiding angiograms taken. Guidewire was advanced into the 1st diagonal branchwith little difficulty. Without prior balloon dilatation, a 2.25 x 8 mmAlpine drug-eluting stent was positioned across the stenosis and deployed at 18atm of pressure for 25 seconds inflation time. Balloon was deflated andremoved. Angiogram showed a good angiographic result with focal 10% stenosis atthe lesion site. No edge dissection, thrombus formation, or distalembolization. Balloon and guidewire were removed. Femoral arterial sheath was removed, and a 6-[place] Korean Angio-Seal devicedeployed with good hemostasis. No femoral hematoma. Pedal pulses intact.Patient returned to the holding area in stable condition. COMPLICATIONS: None. CONCLUSIONS: Successful drug-eluting stent deployment in the 1stdiagonal branch. YESY SHERIFF MD SIB/MODL #: [id number] cc: Sher Medina MD MEDICAL/SURGICAL CARDIAC CATHETERIZATION - DP Yesy Sheriff MD CARDIAC SERVICES ORD ERABLES * CARDIAC CATH CONSULT (for Epic Reporting) (10/05/2014 12:00 PM DIRECTOR OF CAREER SERVICES) 10/05/2014 12:0 0 PM DIRECTOR OF CAREER SERVICES Narrative Transcriptions Yesy Sheriff MD - 10/06/2014 12:19 PM CST [facility] CARDIAC CATHETERIZATION PATIENT: MORIAH REED MR#: [id number] ADMIT DATE: 10/05/2014 CSN: [id number] PROCEDURE DATE: 10/05/2014 :1940 PHYSICIAN: Yesy Sheriff MD ROOM: [place] [address] REFERRING PHYSICIAN: TOM ED ANDA PROCEDURE: Left heart catheterization. Left ventriculography.Selective coronary arteriography. CLINICAL SUMMARY: This is a 73-year-old white female who presents withchest tightness, abnormal ECG, and mild elevation of troponin. Coronaryangiography was undertaken. PROCEDURE: [place]. SITE OF ENTRY: Right femoral artery. LOCAL ANESTHESIA: One percent Xylocaine. PREMEDICATIONS: Versed 2 mg IV, fentanyl 50 mcg IV. CATHETERS: A 5-[place] arterial sheath, 5-North Korean pigtail, 5-North Korean JL4,5- [place] Korean 3DRC. PROCEDURE: The patient was brought to the catheterization laboratoryand prepped and draped in the usual sterile fashion. The right groin was anesthetized locally and the arterial sheath was inserted withoutdifficulty. Selective coronary arteriography was performed in multiple KATHY and GROSSMAN projections using cranial and caudal angulation. Left ventriculogramwas performed in the 30-degree GROSSMAN projection using 35 cc of nonionic contrastat 14 mL/second. Femoral angiogram showed good sheath position in thecommon femoral artery. The sheath was left in place for intervention tofollow. COMPLICATIONS: None. HEMODYNAMICS: Preangiography pressures: Aorta 181/99, left [id number]. LEFT VENTRICULOGRAM: Left ventricular systolic and diastolic volumesare normal. There is a small focal area of akinesis in the proximaldiaphragmatic segment. Other wall segments contract normally. Estimated ejectionfraction is 65%. No mitral insufficiency. CORONARY ARTERIOGRAPHY: This is a balanced coronary circulation. Left main coronary artery: Plaquing. Left anterior descending artery: 95% focal stenosis in the 1st diagonal branch, 70% stenosis in a small 2nd diagonal branch, otherwise mild LAD plaquing. Circumflex artery: Mild plaquing. Right coronary artery: Mild plaquing. FINDINGS: 1. Essentially normal left ventricular systolic function. 2. A 95% focal stenosis in the 1st diagonal branch. RECOMMENDATIONS: Ad hoc stenting of the 1st diagonal branch will be undertaken. YESY SHERIFF MD SIB/MODL #: [id number] cc: Sher Medina MD MEDICAL/SURGICAL CARDIAC CATHETERIZATION - DP Yesy Sheriff MD ECHO ORDERABLES Performing Organization Address [facility] Co de Phone Number [facility] * LIPASE BLOOD (10/05/2014 11:40 AM DIRECTOR OF CAREER SERVICES) Lipase 263 73 - 393 U/L 10/05/2014 12:07 PM DIRECTOR OF CAREER SERVICES [facility] Blood BLOOD SPECIMEN / Unknown 10/05/2014 11:40 AM DIRECTOR OF CAREER SERVICES 10/05/2014 11:43 AM DIRECTOR OF CAREER SERVICES Tom De Anda MD LAB - CHEMISTRY SHANELL MENDES Performing Organization Address [facility]/ZIP Co de Phone Number [facility] [address] [place] [phone] * ED SPLINT APPLICATION (06/28/2014 3:32 PM CDT) Narrative Tom De Anda MD - 06/28/2014 3:32 PM CDT Tom De Anda MD 06/28/2014 3:32 PM Provider contact with the patient: 06/28/2014 10:35 Moriah Reed [id number] [facility] EMERGENCY DEPARTMENT History Chief Complaint Patient presents with Lower Extremity Problem Pt presents to ER with left foot and ankle pain from trip yesterday HPI Comments: 10:36 AM Moriah Reed, zhang 73 y.o. female with a past medical history that includes--HTN, DM, TIA, IBS, hypercholesterolemia--presents to the ER with c/o left foot and ankle pain after tripping over a stair step last night. She states she fell on her left knee. Her pain is improved by lying down. It is worsened by weight bearing. Vitals: BP 199/100 Pulse 66 Temp(Src) 98.4 F Resp 18 Ht 1.575 m (5' 2 ) Wt 65.772 kg (145 lb) BMI 26.51 kg/m2 SpO2 98% on room air. On Examination: well-looking pt. A and O x 3 A: Intact. Speaking. C spine non tender. Full ROM C spine. B: Trachea central. = A/E bilaterally. C: HD stable. BP: D: PERRL. *left ankle tenderness and swelling. Left proximal foot tenderness to palpation. Pelvis stable. Hips non tender. Thighs non tender. Abdomen SNT. Chest non tender. Able to open and close mouth and clench teeth without difficulty or malalignment. Mandible non tender No septal hematoma Able to move and feel all four limbs All four limbs put through a full passive ROM without pain. Normal radial and dorsal pedal pulses bilaterally. Physician: Sher Medina Allergies: No Known Allergies Social history: reports that she quit smoking about 8 years ago. She has never used smokeless tobacco. She reports that she drinks alcohol. She reports that she does not use illicit drugs. Past Medical History Diagnosis Date Hypertension TIA (transient ischemic attack) IBS (irritable bowel syndrome) Hypercholesteremia Diabetes mellitus Thyroid condition Past Surgical History Procedure Laterality Date Partial thyroidectomy age 30's Hysterectomy Appendectomy Cataract removal both have been done Biopsy breast 09/1961 left breast-benign No family history on file. History Social History Marital Status: Spouse Name: N/A Number of Children: N/A Years of Education: N/A Occupational History Not on file. Social History Main Topics Smoking status: Former Smoker Quit date: 09/03/2005 Smokeless tobacco: Never Used Alcohol Use: Yes Comment: 2 glasses of wine/month Drug Use: No Sexual Activity: Not on file Other Topics Concern Not on file Social History Narrative Review of Systems Review of Systems Constitutional: Negative. Negative for fever, chills, malaise/fatigue and diaphoresis. HENT: Negative. Negative for congestion. Eyes: Negative for blurred vision, double vision, photophobia, pain, discharge and redness. Respiratory: Negative for cough, hemoptysis, sputum production, shortness of breath and wheezing. Cardiovascular: Negative for chest pain, palpitations, orthopnea, claudication, leg swelling and PND. Gastrointestinal: Negative for heartburn, nausea, vomiting, abdominal pain, diarrhea, constipation, blood in stool and melena. Genitourinary: Negative for dysuria, urgency, frequency, hematuria and flank pain. Musculoskeletal: Positive for joint pain. Negative for myalgias, back pain and neck pain. Skin: Negative. Negative for itching and rash. Neurological: Negative for dizziness, tingling, tremors, sensory change, speech change, focal weakness, seizures, loss of consciousness, weakness and headaches. Endo/Heme/Allergies: Does not bruise/bleed easily. All other systems reviewed and are negative. Physical Exam BP 199/100 Pulse 66 Temp(Src) 98.4 F Resp 18 Ht 1.575 m (5' 2 ) Wt 65.772 kg (145 lb) BMI 26.51 kg/m2 SpO2 98% Physical Exam Constitutional: Vital signs are normal. She appears well-developed. Non-toxic appearance. She does not have a sickly appearance. She does not appear ill. No distress. HENT: Head: Normocephalic and atraumatic. Eyes: EOM are normal. Pupils are equal, round, and reactive to light. Right eye exhibits no discharge. Left eye exhibits no discharge. Right conjunctiva is not injected. Left conjunctiva is not injected. No scleral icterus. Neck: No JVD present. No tracheal tenderness, no spinous process tenderness and no muscular tenderness present. No rigidity. No tracheal deviation, no edema, no erythema and normal range of motion present. No thyroid mass and no thyromegaly present. Cardiovascular: Normal rate, regular rhythm, normal heart sounds and intact distal pulses. Exam reveals no gallop, no S3, no S4 and no distant heart sounds. Pulmonary/Chest: No stridor. No respiratory distress. She has no wheezes. She has no rales. She exhibits no tenderness. Abdominal: She exhibits no distension, no pulsatile liver, no abdominal bruit, no ascites, no pulsatile midline mass and no mass. There is no hepatosplenomegaly. There is no rigidity, no rebound, no guarding and no CVA tenderness. No hernia. Musculoskeletal: Normal range of motion. She exhibits edema and tenderness. She exhibits no deformity. Right shoulder: She exhibits no bony tenderness, no swelling, no effusion and no crepitus. Lymphadenopathy: Right cervical: No deep cervical and no posterior cervical adenopathy present. Left cervical: No deep cervical and no posterior cervical adenopathy present. Neurological: She is alert. She displays no atrophy and no tremor. No cranial nerve deficit or sensory deficit. She exhibits normal muscle tone. She displays no seizure activity. Coordination normal. She displays no Babinski's sign on the right side. She displays no Babinski's sign on the left side. Skin: No bruising, no ecchymosis and no laceration noted. Psychiatric: Her mood appears not anxious. Her affect is not angry, not blunt, not labile and not inappropriate. Her speech is not rapid and/or pressured, not delayed, not tangential and not slurred. She is not agitated, not aggressive, not hyperactive, not slowed, not withdrawn and not combative. She does not exhibit a depressed mood. She is communicative. Nursing note and vitals reviewed. Medications Current Outpatient Prescriptions Medication Sig Dispense Refill hydrocodone-acetaminophen (NORCO) 5-325 MG tablet Take 1 Tab by mouth every 4 hours as needed for Pain. 20 Tab 0 amLODIPine (NORVASC) 10 MG tablet Take 10 mg by mouth once daily. Instructed to take a.m. Of surgery with sip of water doxazosin (CARDURA) 1 MG tablet Take 1 mg by mouth once daily. Instructed to take a.m. Of surgery with sip of water pravastatin (PRAVACHOL) 40 MG tablet Take 40 mg by mouth once daily. metoprolol succinate XL 24hr (TOPROL XL) 100 MG tablet Take 100 mg by mouth once daily. Instructed to take a.m. Of surgery with sip of water metFORMIN (GLUCOPHAGE) 500 MG tablet Take 500 mg by mouth 2 times daily with breakfast and dinner. alendronate (FOSAMAX) 70 MG tablet Take 70 mg by mouth every 7 days before meal. Take in morning with full glass of water on empty stomach and remain upright for 30 min aspirin EC (ECOTRIN) 81 MG tablet Take 81 mg by mouth once daily. Last dose 02/18/12 olmesartan-hydrochlorothiazide (BENICAR HCT) 40-25 MG tablet Take 1 Tab by mouth once daily. Instructed to take a.m. Of surgery with sip of water Procedures Splint Application Date/Time: 06/28/2014 11:21 AM Performed by: TOM DE ANDA Authorized by: TOM DE ANDA Consent: Verbal consent obtained. Risks and benefits: risks, benefits and alternatives were discussed Consent given by: patient Patient understanding: patient states understanding of the procedure being performed Patient consent: the patient's understanding of the procedure matches consent given Procedure consent: procedure consent matches procedure scheduled Patient identity confirmed: verbally with patient and arm band Location details: left ankle Splint type: rajendra wrap. Post-procedure: The splinted body part was neurovascularly unchanged following the procedure. Patient tolerance: Patient tolerated the procedure well with no immediate complications ECG Interpretation ECG Interpretation Lab Interpretation Oxygen Saturation Interpretation The oxygen saturation level is: 98%. The patient was on Room Air for the saturation measurement. Measurement frequency: Spot Check. Oxygen saturation interpretation is Normal. Intervention(s) used: Patient Observed. No results found for this visit on 06/28/14. XR ANKLE 3+ VW LEFT Final Result: There is no evidence of acute bony injury to the left ankle. XR FOOT 3+ VW LEFT Final Result: No acute bony injury seen involving the left foot. Progress Notes 11:19 AM Rechecked pt - I applied rajendra wrap to the pt's left ankle. I advised her to f/u with an orthopedist. Current BP is 174/48, but she states her BP is usually elevated. Pt is medically stable for d/c home at this time. I have given the patient instructions regarding her diagnosis, expectations, follow up, and return precautions. I explained to the patient that emergent conditions may arise and to return to the ER for new, worsening, or any persistent conditions. I've explained the importance of following up with Dr. Banks and Dr. Villareal as instructed. The patient verbalized understanding of the discharge instructions. ED Course Medical Decision Making I have reviewed the: Previous Chart, Nursing Notes and Vitals. I have interpreted the following results: X-Ray and Oxygen Saturation. Orders Placed This Encounter ED SPLINT APPLICATION XR ANKLE 3+ VW LEFT XR FOOT 3+ VW LEFT hydrocodone-acetaminophen (NORCO) 5-325 MG tablet Diagnosis: Final diagnoses: Fall, initial encounter Ankle sprain, left, initial encounter (Primary) New Medications: Discharge Medication List as of 06/28/2014 11:23 AM I have advised the patient to follow-up with: [place] [id number] [facility] [address] [facility] [address] Call in 1 day Sean Villareal DPM [id number] [facility] [address] [facility] [address] Call in 1 day Sher Medina MD Disposition: Discharged I have reviewed the information recorded by the scribe and agree with its accuracy and contents--Dr. De Anad 06/28/2014 3:32 PM Transcribed by Geremias Verde--acting scribe on behalf of Dr. De Anda 06/28/2014 11:19 AM Tom De Anda MD PROCEDURE/MINOR SURG ICAL ORDERABLES * XR FOOT 3+ VW LEFT (06/28/2014 10:54 AM CDT) Anatomical Region Laterality Modality Ankle / Foot Radiographic Em ging 06/28/2014 10:5 9 AM CDT Impressions 06/28/2014 11:00 AM CDT No acute bony injury seen involving the left foot. Narrative 06/28/2014 11:00 AM CDT Left foot INDICATION: Fall, left foot injury and pain FINDINGS: Three views of the left foot are submitted. No fracture or dislocation is seen. There is no radiopaque foreign body within the soft tissues. Mild bunion deformity is present. Articulations otherwise appear normal. Procedure Note Keke Mahajan MD - 06/28/2014 Left foot INDICATION: Fall, left foot injury and pain FINDINGS: Three views of the left foot are submitted. No fracture or dislocation is seen. There is no radiopaque foreign body within the soft tissues. Mild bunion deformity is present. Articulations otherwise appear normal. IMPRESSION No acute bony injury seen involving the left foot. Tom De Anda MD DIAGNOSTIC IMAGING O RDERABLES * XR ANKLE 3+ VW LEFT (06/28/2014 10:53 AM CDT) Anatomical Region Laterality Modality Lower Extremity Radiographic Em ging 06/28/2014 10:5 8 AM CDT Impressions 06/28/2014 10:59 AM CDT There is no evidence of acute bony injury to the left ankle. Narrative 06/28/2014 10:59 AM CDT Ankle Series Indication: Injury and ankle pain. Findings: 3 views of the left ankle are submitted. There is no fracture or dislocation. No radiopaque foreign body is seen. No ankle joint effusion is identified. Soft tissue swelling overlies the lateral malleolus. This may indicate ligamentous or soft tissue injury. This could be further evaluated by MRI if clinically indicated. There is a small enthesophyte at the insertion of the Achilles tendon and another at the plantar fascia. Procedure Note Keke Mahajan MD - 06/28/2014 Ankle Series Indication: Injury and ankle pain. Findings: 3 views of the left ankle are submitted. There is no fracture or dislocation. No radiopaque foreign body is seen. No ankle joint effusion is identified. Soft tissue swelling overlies the lateral malleolus. This may indicate ligamentous or soft tissue injury. This could be further evaluated by MRI if clinically indicated. There is a small enthesophyte at the insertion of the Achilles tendon and another at the plantar fascia. IMPRESSION There is no evidence of acute bony injury to the left ankle. Tom De Anda MD DIAGNOSTIC IMAGING O RDERABLES * LCHG THYROGLOBULIN II (04/08/2014 11:59 AM CDT) Only the most recent of2 resultswithin the time period is included. Bill Reflex Only [facility] Bill Only 04/09/2014 8:59 PM CDT [facility] ([facility]) Blood specimen (specimen) BLOOD SPECIMEN / Unknown Lab Venipuncture / Unknown 04/08/2014 11:59 AM CDT 04/08/2014 12:43 PM CDT Jefry Evans MD [facility] [employer] [facility]) [address] [place] [address], [facility] * (ABNORMAL) THYROGLOBULIN (04/08/2014 11:59 AM CDT) Only the most recent of2 resultswithin the time period is included. Thyroglobulin Antibody <0.9 0.0 - 4.0 IU/mL 04/09/2014 7:59 PM CDT [facility] ([facility]) Comment: INTERPRETIVE INFORMATION: Thyroglobulin Antibody A value of 4.0 IU/mL or less indicates a negative result for thyroglobulin antibodies. The Thyroglobulin Antibody assay is being performed using the [employer] Access DxI method. Thyroglobulin 0.4(L) 1.3 - 31.8 ng/mL 04/09/2014 7:59 PM CDT [facility] ([facility]) Comment: INTERPRETIVE INFORMATION: Thyroglobulin, Serum or Plasma Specimens negative for thyroglobulin antibodies (TgAb) are tested for thyroglobulin (Tg) by chemiluminescent immunoassay (RHINA) using the [employer] Access DxI method. Specimens with TgAb results above the upper reference limit are tested for Tg by high-performance liquid chromatography-tandem mass spectrometry (LC-MS/MS). Results obtained with different test methods or kits cannot be used interchangeably. Tg results, regardless of concentration, should not be interpreted as absolute evidence for the presence or absence of papillary or follicular thyroid cancer. Tg testing is not recommended for use as a screening procedure to detect the presence of thyroid cancer in the general population. Thyroglobulin LC-MS/MS Not Applicable 1.3 - 31.8 ng/mL 04/09/2014 7:59 PM CDT [facility] [employer] ([facility]) Comment: INTERPRETIVE INFORMATION: Thyroglobulin by LC-MS/MS, Serum/Plasma Lower limit of detection for Thyroglobulin by LC-MS/MS is 0.5 ng/mL. Test developed and characteristics determined by [employer]. See Compliance Statement B: [email or web address] Blood specimen (specimen) BLOOD SPECIMEN / Unknown Lab Venipuncture / Unknown 04/08/2014 11:59 AM CDT 04/08/2014 12:43 PM CDT Jefry Evnas MD LAB - CHEMISTRY ORDERABLES Performing Organization Address [facility] Phone Number [facility] ([facility]) [address] [place] [address] * THYROGLOBULIN ANTIBODY (04/08/2014 11:59 AM CDT) Only the most recent of2 resultswithin the time period is included. Thyroglobulin Antibody <0.9 0.0 - 4.0 IU/mL 04/09/2014 7:59 PM CDT [facility] ([facility]) Comment: INTERPRETIVE INFORMATION: Thyroglobulin Antibody A value of 4.0 IU/mL or less indicates a negative result for thyroglobulin antibodies. The Thyroglobulin Antibody assay is being performed using the [employer] Access DxI method. Blood specimen (specimen) BLOOD SPECIMEN / Unknown Lab Venipuncture / Unknown 04/08/2014 11:59 AM CDT 04/08/2014 12:44 PM CDT Jefry Evans MD LAB - CHEMISTRY ORDERABLES Performing Organization Address [facility] Phone Number [facility] ([facility]) [address] [place] [address] * LAB RESULTS ORDER (11/01/2012 12:26 PM DIRECTOR OF CAREER SERVICES) Narrative 11/01/2012 12:26 PM DIRECTOR OF CAREER SERVICES Procedure Note Document, Scanned - 11/01/2012 12:26 PM CST Scanned Document LAB - THERAPEUTIC DR BEV MONITORING ORDERABLES * (ABNORMAL) THYROGLOBULIN PANEL (10/18/2012 9:21 AM DIRECTOR OF CAREER SERVICES) Only the most recent of2 resultswithin the time period is included. Thyroglobulin Antibody <0.9 0.0 - 4.0 IU/mL [facility] Thyroglobulin 0.4(L) 1.3 - 31.8 ng/mL [facility] Comment Ref Lab [facility] Comment: Comments and Normal Ranges for Component Thyroglobulin Ab(IU/mL) INTERPRETIVE INFORMATION/ Thyroglobulin Antibody A value of 4.0 IU/mL or less indicates a negative result for thyroglobulin antibodies. The Thyroglobulin Antibody assay is being performed using the [employer] Access DxI method. Comments and Normal Ranges for Component Thyroglobulin(ng/mL) INTERPRETIVE INFORMATION/ Thyroglobulin, Serum or Plasma Specimens negative for thyroglobulin antibodies (TgAb) are tested for thyroglobulin (Tg) by chemiluminescent immunoassay (RHINA) using the [employer] Access (R) DxI method. Specimens with TgAb results above the upper reference limit are tested for Tg by high-performance liquid chromatography-tandem mass spectrometry (LC-MS/MS). Results obtained with different test methods or kits cannot be used interchangeably. Tg results, regardless of concentration, should not be interpreted as absolute evidence for the presence or absence of papillary or follicular thyroid cancer. Tg testing is not recommended for use as a screening procedure to detect the presence of thyroid cancer in the general population. INTERPRETIVE INFORMATION/ Thyroglobulin by LC-MS/MS, Serum/Plasma Lower limit of detection for Thyroglobulin by LC-MS/MS is 0.5 ng/mL. BLOOD SPECIMEN / Unknown 10/18/2012 9:21 AM DIRECTOR OF CAREER SERVICES 10/18/2012 9:36 AM DIRECTOR OF CAREER SERVICES Narrative [facility] - 10/19/2012 10:28 AM DIRECTOR OF CAREER SERVICES Performed By [address] [address] Jefry Evans MD LAB - CHEMISTRY ORDERABLES [facility] [address] [place] [address] * NM THYROID CA METS SCAN WHOLE BODY (10/16/2012 1:38 PM DIRECTOR OF CAREER SERVICES) Only the most recent of2 resultswithin the time period is included. Anatomical Region Laterality Modality Chest Nuclear Medicine 10/21/2012 9:10 AM DIRECTOR OF CAREER SERVICES Impressions 10/21/2012 9:22 AM DIRECTOR OF CAREER SERVICES Unable to diagnose metastatic disease at this time. The intensity of uptake in the floor of the mouth and at the base of the neck has decreased since the post therapy images of April 02, 2012. Narrative 10/21/2012 9:22 AM DIRECTOR OF CAREER SERVICES EXAMINATION: Nuclear medicine thyroid carcinoma metastatic whole body scan. INDICATION: Malignant neoplasm of the thyroid gland. Thyroid gland ablation therapy in March 2012. COMPARISON: April 02, 2012 TECHNIQUE: The patient received 4.7 mCi of I-131 p.o. in capsule form. Whole body images were obtained in the anterior and posterior projections. Additional spot images of the neck were performed in the anterior and posterior projections. FINDINGS: The intense focus of activity at the base of the neck seen on the study from April 02, 2012, can no longer be appreciated. Also, the intensity of uptake at the floor of the mouth has decreased since the prior study. No definite metastatic lesions can be identified on the whole body images. Procedure Note Len Her MD - 10/21/2012 EXAMINATION: Nuclear medicine thyroid carcinoma metastatic whole body scan. INDICATION: Malignant neoplasm of the thyroid gland. Thyroid gland ablation therapy in March 2012. COMPARISON: April 02, 2012 TECHNIQUE: The patient received 4.7 mCi of I-131 p.o. in capsule form. Whole body images were obtained in the anterior and posterior projections. Additional spot images of the neck were performed in the anterior and posterior projections. FINDINGS: The intense focus of activity at the base of the neck seen on the study from April 02, 2012, can no longer be appreciated. Also, the intensity of uptake at the floor of the mouth has decreased since the prior study. No definite metastatic lesions can be identified on the whole body images. IMPRESSION Unable to diagnose metastatic disease at this time. The intensity of uptake in the floor of the mouth and at the base of the neck has decreased since the post therapy images of April 02, 2012. Jefry Evans MD NM ORDERABLES * XR SHOULDER 2+ VW LEFT (07/01/2012 12:22 PM CDT) Anatomical Region Laterality Modality Upper Extremity Radiographic Em ging 07/01/2012 1:08 PM CDT Impressions 07/01/2012 1:08 PM CDT Negative radiographs of the right shoulder. Narrative 07/01/2012 1:08 PM CDT EXAMINATION: Left shoulder, 3 views CLINICAL INFORMATION: Left shoulder pain COMPARISON: None FINDINGS: There is no radiographic evidence of displaced fracture or dislocation. The acromioclavicular joint is not widened. The glenohumeral joint appears intact. Procedure Note Blanco Rutledge MD - 07/01/2012 EXAMINATION: Left shoulder, 3 views CLINICAL INFORMATION: Left shoulder pain COMPARISON: None FINDINGS: There is no radiographic evidence of displaced fracture or dislocation. The acromioclavicular joint is not widened. The glenohumeral joint appears intact. IMPRESSION Negative radiographs of the right shoulder. Sher Medina MD DIAGNOSTIC IMAGING O RDERABLES * IP CONSULT TO PASTORAL CARE (02/23/2012 8:42 PM CDT) Narrative Toi Farley - 02/23/2012 8:42 PM CDT Toi Farley 02/23/2012 8:42 PM Patient Safety Coordinator visited this pt before end of shift - Pt sound asleep when Patient Safety Coordinator came to visit. Rev. Toi Farley Procedure Note Toi Farley - 02/23/2012 8:41 PM CDT Patient Safety Coordinator visited this pt before end of shift - Pt sound asleep whenChaplain came to visit. Rev. Toi Farley Rob Burton MD INPATIENT ANCILLARY CONSULT * GROSS + MICRO EXAM (02/23/2012 12:00 AM CDT) [facility] Surgeon Alton Burton [facility] Grossed By SAW [facility] Gross Report [facility] Comment: COPY TO: Sher Medina [address] [facility], [address], [place] [address]. PROCEDURE: Right thyroid lobectomy GROSS DESCRIPTION: Received in formalin in a container labeled Moriah Reed, right lobe thyroid . The container holds a 27.6 gram, 4.5 x 4 x 4 cm, right thyroid lobe. The capsule is thin and delicate. The thyroid capsule appears to be intact. The surface is inked blue. The thyroid is sectioned from superior pole to inferior pole. Section shows multiple nodules. There is a circumscribed nodule in the upper pole, measuring 1 cm in diameter. There is a larger javier nodule that extends from the mid pole to the lower pole, measuring 4 x 3.5 cm. The larger nodule has punctate areas of hemorrhage. There is a rim of burgundy-brown, unremarkable thyroid parenchyma. Color Buffer sections are submitted from superior to inferior pole in cassettes A-F, with bisected section from mid pole nodule in cassettes C/D and bisected section from lower pole nodule in cassette E/F. DYT/vr Microscopic Examination [facility] Comment: The right thyroid lobe section show well circumscribed nodule of variable size follicles lined by cells with pink cytoplasm. There is a central area of sclerosis within this nodule. There are other smaller nodules whose cells do not show the oncocytic features seen in the larger nodule. In blocks C, D, E and F, however, is a large dominant nodule with a trabecular architecture of solid nests. Occasional mitoses are seen and there is some optical clearing of nuclei and rare intranuclear inclusions, but grooves and boxcar nuclei are not definitely found. Nevertheless, the presence of mitoses, the trabecular nature of the tumor are consistent with a thyroid carcinoma, probably a variant of papillary carcinoma as at least some of the cytologic features of papillary carcinoma are seen. The lesion appears to be circumscribed and confined to the gland. To confirm thyroid carcinoma and rule out possible hemangiopericytoma, because of the vascularity of this lesion as well as to rule out medullary carcinoma and paraganglioma, immunohistochemistry is performed and shows CAM5.2(+), CD56(+), TTF-1(+), Thyroglobulin(+), Synaptophysin(-), Chromogranin(-), Calcitonin(-) staining consistent with non-medullary thyroid carcinoma. CD31 and CD34 highlight the rich interstitial vascularity of this tumor but the tumor itself is negative. Others in this group have reviewed the tumor and concur. AB/scs Diagnosis [facility] Comment: 1. 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 [facility] CPT Code 47932 [facility] SPECIMEN FROM THYROI D OBTAINED BY THYROIDECTOMY / Unknown 02/23/2012 02/23/2012 12:34 PM CDT Rob Burton MD LAB - PATHOLOGY/CYTO LOGY ORDERABLES Performing Organization Address City/State/[facility] Co de Phone Number [facility] [address] [place] [address] * US THYROID (02/08/2012 9:20 AM CDT) Anatomical Region Laterality Modality Chest Ultrasound 02/08/2012 3:09 PM CDT Impressions 02/08/2012 3:43 PM CDT 1. Two nodules in the right lobe of the thyroid. 2. Status post left thyroidectomy. Narrative 02/08/2012 3:43 PM CDT ULTRASOUND THYROID INDICATION: Thyroid mass, left thyroidectomy. FINDINGS: Ultrasound without prior shows the right lobe of the thyroid to measure 3.86 X 4.36 X 4.58 cm. The left lobe is removed. There is a nodule in the superior portion of the right lobe measuring 1.9 X 1.8 X 2.2 cm and one in the lower pole measuring 3.9 X 4.3 X 4.6 cm. There is some cystic change within both nodules. Procedure Note Geoffrey Landaverde MD - 02/08/2012 ULTRASOUND THYROID INDICATION: Thyroid mass, left thyroidectomy. FINDINGS: Ultrasound without prior shows the right lobe of the thyroid to measure 3.86 X 4.36 X 4.58 cm. The left lobe is removed. There is a nodule in the superior portion of the right lobe measuring 1.9 X 1.8 X 2.2 cm and one in the lower pole measuring 3.9 X 4.3 X 4.6 cm. There is some cystic change within both nodules. IMPRESSION 1. Two nodules in the right lobe of the thyroid. 2. Status post left thyroidectomy. Arielle Stovall MD ORDERABLES * STRESS TEST TREADMILL (NO IMAGING) (09/28/2011) 09/28/2011 Narrative Transcriptions Carmen Lewis MD - 09/28/2011 4:23 PM CST [facility] Stress Test [facility] STRESS TEST PATIENT: MORIAH REED [facility]#: [id number] DATE OF SERVICE: 09/28/2011CCT#: [id number] : 1ROOM: REFERRING PHYSICIAN: ADMIT DATE: 09/28/2011 Maximum predicted heart rate: 149 85% of Max. predicted heart rate: 127 BENNY MPH HR BP SYMPTOMS STAGE GRADE REST 19609/80 1 1.7/10%014657/84PACs noted POST EXERCISE 823411/69 2 vny99271/65 4 gxe07071/71 Duration of Exercise: 4:30 Reason for Termination: Shortness of breath. Per patient request. Maximum Predicted Heart Rate Reached: 114 / 76% RESTING EKG: Normal sinus rhythm. INTERPRETATION: The patient exercised for a total of 4 minutes and 30seconds on a Benny protocol achieving a peak heart rate of 114 beats perminute, which is submaximal. CONCLUSION: 1.No chest pain reported. 2.Non-diagnostic upsloping ST segment changes noted. 3.Premature ventricular complexes noted. 4.No significant arrhythmia noted. 5.Exercise terminated in view of fatigue and shortness of breath. CARMEN LEWIS MD ASN/JT #: [id number] CC:SHER MEDINA MD STRESS TEST - DP Sher Medina MD [facility] Organization Address City/State/ZIP Co de Phone Number [facility] * DEXA BONE DENSITY 2 SITES (06/30/2011 [...] = LESS THAN -2.5 SD BELOW T-SCORE. Sher Medina MD DEXA ORDERABLES Care Teams Bookstore Manager Relationship Specialty Start Date End Date Benny Wilkes MD [facility] [address] PCP - General Internal Medicine 03/09/21
--- OUTSIDE RECORDS SUMMARY | 2024-10-14 11:16 | XMS_ITS | CONTINUITY OF CARE DOCUMENT ---
Author Name swapnasaritavan lisa Address Unknown Organization [facility] Office Address [address] [place] [address] [address] [place] [address] Phone [phone] Care Team Providers Care Railroad Firer/Fireman Name Role Phone Roni DOMINGUEZ, Unavailable [phone] JAZLYN CLAROS MD Unavailable JAZLYN CLAROS MD Unavailable INSURANCE PROVIDERS Payer name Policy type / Coverage type Allyn red democrat ID [employer] Other [id number]
--- OUTSIDE RECORDS SUMMARY | 2024-10-14 11:16 | XMS_ITS | Encounter Summary ---
Author Organization [facility] Address [address] [place] [address] Care Team Providers Care Obstetrics Gynecology Physician Name Role Phone Benny Wilkes MD Primary Care Provider [phone] Encounter Details Date Type Department Care Team (Late st Contact Info) Description 04/27/2021 3:15 PM CDT Hospital Encounter [address] [id number] Lili Bethea MD [facility] [place] [phone] Aguilar Latham MD [facility] [address] [place] [phone] Eugene De Jesus MD [employer] [...] documented as of this encounter Functional Status Functional Status Response Date of Assess ment Is person deaf or have serious hearing difficult y? No 04/23/2021 Is person blind or have serious difficulty seein g? No 04/23/2021 Does person have serious dif ficulty walking/climbing stairs? Yes 04/23/2021 Does person have difficulty dressing/bathing? Ye s 04/23/2021 Does person have difficulty doing errands alone? Yes 04/23/2021 Cognitive Status Response Date of Assessm ent Does person have difficulty concentrating/remembering/making decisions? Yes 04/23/2021 documented as of this encounter Plan of Treatment Not on file documented as of this encounter Visit Diagnoses Not on filedocumented in this encounter Care Teams Obstetrics Gynecology Physician Relationship Specialty Start Date End Date Benny Wilkes MD [address] [address] PCP - General Internal Medicine 03/09/21 documented as of this encounter
--- OUTSIDE RECORDS SUMMARY | 2024-10-14 11:16 | XMS_ITS | Clinical Summary ---
Author Organization [facility] Address [address] [facility] [place] [address] Care Team Providers Care Conservation Specialist Name Role Phone Benny Wilkes MD Primary Care Provider [phone] [facility],non-owned Affiliates and Associated Physician Practices is amultiple site organization consisting of ambulatory clinics and hospital sitesin [place], [place], [place] and [place]. This disclosure is being madepursuant to the Care Everywhere program and may not contain all information available regarding this patient. Last updated 18.[facility] Allergies No known active allergies Medications * [...] Resolved Date INGRID to diagonal in 201411/02/2014 0905/2015 HTN 11/02/2014 05/12/2015 Diabetes 11/02/2014 05/12/2015 Thyroid neoplasm 02/23/2012 02/23/2012 Immunizations Name Administration Dates Next Due INFLUENZA VACCINE 06/12/2014 Pneumococcal Pcv13 Conj 05/12/2008 Family History Medical History Relation Name Comments Cancer - Breast Maternal Grandmother Cancer - Breast Mother Relation Name Status Comments Maternal Grandmother Mother Social History Tobacco Use Types Packs/Day Years [...] Mass Index 26.72 05/15/2021 8:25 PM CDT Plan of Treatment Health Maintenance Due Date Last Done Comments DTAP/TDAP/TD VACCINES (1 - Tdap) 11/08/1959 ZOSTER VACCINE (1 of 2) 1990 PNEUMOCOCCAL VACCINE 50+ (2 of 2 - PPSV23) 07/07/2008 05/12/2008 Respiratory Syncytial Virus (RSV) Vaccine Pt: or over 60 yrs (1 - 1-dose 75+ series) 11/08/2015 DIABETES RETINOPATHY SCREENING 03/17/2021 DIABETES-FOOT EXAM WITH MONOFILAMENT 03/17/2021 DIABETES-HGB A1C 10/25/2021 04/24/2021, 04/2021, 10/06/2014, Additional history exists DIABETES-SERUM CREATININE 05/17/20222020, 05/16/2021, 05/16/2021, Additional history exists COVID-19 VACCINE ( - season) 2024 INFLUENZA VACCINE (#1) 2024 06/12/2014 DEPRESSION SCREENING 09/03/2024 DIABETES - URINE PROTEIN SCREENING 09/03/2024 MEDICARE AWV CALENDAR YEAR 2024 BONE DENSITY TESTING Completed 06/30/2011 HEPATITIS B VACCINE Aged Out No longe r eligible based on patient's age to complete this topic HIB VACCINE Aged Out No longer eligi ble based on patient's age to complete this topic HPV VACCINE Aged Out No longer eligi ble based on patient's age to complete this topic MENINGOCOCCAL (Group B) VACCINE Aged Out No longer eligible based on patient's age to complete this topic MENINGOCOCCAL VACCINE Aged Out No naveen callie eligible based on patient's age to complete this topic Procedures Procedure Name Priority Date/Time Associated Diagnosis Comments RENAL FUNCTION PANEL AM Draw 05/17/2021 3:33 AM CDT HEMOGLOBIN A1C Routine 04/24/2021 3:41 AM CDT DEXA BONE DENSITY 2 SITES Routine 06/30/2011 2:23 PM CDT Disorder of bone and cartilage, unspecified from Last 3 Months or Most Recently Relevant to Health Maintenance Results * (ABNORMAL) RENAL FUNCTION PANEL (05/17/2021 3:33 AM CDT) Glucose 104 70 - 105 mg/dL 05/17/2021 4:11 AM CDT [facility] Sodium 141 136 - 145 mmol/L 05/17/2021 4:11 AM CDT [facility] Potassium 3.5 3.5 - 5.1 mmol/L 05/17/2021 4:11 AM CDT [facility] Chloride 108(H) 98 - 107 mmol/L 05/17/2021 4:11 AM CDT [facility] CO2 22(L) 23 - 31 mmol/L 05/17/2021 4:11 AM CDT [facility] Calcium 8.4 8.4 - 10.4 mg/dL 05/17/2021 4:11 AM CDT [facility] Anion Gap 11 8 - 18 mmol/L 05/17/2021 4:11 AM CDT [facility] BUN 16 9.8 - 20.1 mg/dL 05/17/2021 4:11 AM CDT [facility] Creatinine 1.10 0.57 - 1.11 mg/dL 05/17/2021 4:11 AM CDT [facility] Albumin 3.5 3.2 - 4.6 gm/dL 05/17/2021 4:11 AM CDT [facility] Phosphorus 2.2(L) 2.3 - 4.7 mg/dL 05/17/2021 4:11 AM CDT [facility] eGFR by MDRD 48 mL/min/1.7 3m2 05/17/2021 4:11 AM CDT [facility] eGFR by MDRD 58 mL/min/1.7 3m2 05/17/2021 4:11 AM CDT [facility] Blood BLOOD SPECIMEN / Unknown Venipuncture / Unknown 05/17/2021 3:33 AM CDT 05/17/2021 3:45 AM CDT Calixto Glass MD LAB - CHEMISTRY SHANELL MENDES [facility] [address] [place] [address] * (ABNORMAL) HEMOGLOBIN A1C (04/24/2021 3:41 AM CDT) Hemoglobin A1c 7.4(H) 4.2 - 5.6 % 04/24/2021 4:29 AM CDT [facility] Estimated Average Glucose 166 mg/dL 04/24/2021 4:29 AM CDT [facility] Blood BLOOD SPECIMEN / Unknown Venipuncture / Unknown 04/24/2021 3:41 AM CDT 04/24/2021 3:56 AM CDT Narrative [facility] - 04/24/2021 4:29 AM CDT The following cutoff levels are recommended by [place] [employer]. A1c > 6.5% : considered [...] Pike MD LAB - CHEMISTRY SHANELL MENDES [facility] Organization Address City/State/ZIP Co de Phone Number [facility] [address] [place] [address] * DEXA BONE DENSITY 2 [...] Documents on File Type Date Recorded Patient Sterile Supervisor Expl anation Adv Directive/Living Will/POA 04/29/2021 9:18 [...] 5:11 PM 03/11/2021 2:27 PM Care Teams Conservation Specialist Relationship Specialty Start Date End Date Benny Wilkes MD [address] [address] PCP - General Internal Medicine 03/09/21
--- NOTE | 2024-10-14 13:46 | ED.GIBLEED ---
HPI - GI Bleed General Chief complaint: GI Bleed <SAMMY Bunn Last Filed: 10/14/24 13:52> Stated complaint: rectal bleeding hemorrhoids <SAMMY Bunn Last Filed: 10/14/24 13:52> Time Seen by Provider: 10/14/24 13:46 <SAMMY Bunn Last Filed: 10/14/24 13:52> Focused HPI: Patient is an 83 y/o female, with PMH of AFIB on eliquis, who presents to the ED with c/o rectal bleeding. patient reports having a large amount of bright red blood per rectum this morning. States her stools have been soft, but she is on a stool softener. Was seen in the ED last week for similar bleeding. CTA of abdomen/ pelvis at that time showed diverticulosis. Patient does also have history of hemorrhoids. She denies pain with bowel movements, abdominal pain, nausea, vomiting, fevers, dizziness, lightheadedness. GENERAL: Elderly but well-appearing, well-nourished, and in no acute distress. HEAD: Normocephalic, atraumatic. CHEST: Clear to auscultation. ?No respiratory distress. HEART: Regular rate and rhythm.? NEURO: ?Alert and oriented x3. Patient screened in triage and initial orders placed.? ?Additional care and disposition to be based upon?diagnostic testing and treatment. <Sara Kingston PA-C - Last Filed: 10/14/24 13:52> Focused HPI: Patient is an 83 y/o female, with PMH of AFIB on eliquis, who presents to the ED with c/o rectal bleeding. patient reports having a large amount of bright red blood per rectum this morning. States her stools have been soft, but she is on a stool softener. Was seen in the ED last week for similar bleeding. CTA of abdomen/ pelvis at that time showed diverticulosis. Patient does also have history of hemorrhoids. She denies pain with bowel movements, abdominal pain, nausea, vomiting, fevers, dizziness, lightheadedness. Previous colonoscopies with Dr. Pelayo outpatient shows diverticulosis and internal hemorrhoids. No previous surgical procedures. GENERAL: Elderly but well-appearing, well-nourished, and in no acute distress. HEAD: Normocephalic, atraumatic. CHEST: Clear to auscultation. ?No respiratory distress. HEART: Regular rate and rhythm.? NEURO: ?Alert and oriented x3. Patient screened in triage and initial orders placed.? ?Additional care and disposition to be based upon?diagnostic testing and treatment. <Nish Gonzalez MD - Last Filed: 10/14/24 17:57> Source: patient <Sara Kingston PA-C - Last Filed: 10/14/24 13:52> Mode of arrival: ambulatory <Sara Kingston PA-C - Last Filed: 10/14/24 13:52> Limitations: no limitations <Sara Kingston PA-C - Last Filed: 10/14/24 13:52> History of Present Illness HPI Narrative: Agree with the HPI above. <Nish Gonzalez MD - Last Filed: 10/14/24 17:57> Related Data Home medications: Home Medications ?Medication ?Instructions ?Recorded ?Confirmed ?Last Taken ?Type apixaban 2.5 mg tablet (Eliquis) 2.5 mg BID 07/03/21 07/01/24 Unknown History atorvastatin 80 mg tablet 80 mg PO DAILY 07/03/21 07/01/24 Unknown History metoprolol succinate 50 mg 50 mg PO DAILY 10/30/23 07/01/24 Unknown History tablet,extended release 24 hr albuterol sulfate 90 mcg/actuation 2 puff inhalation Q4H PRN 06/23/24 07/01/24 Unknown History aerosol inhaler Shortness Of Breath fluoxetine 20 mg capsule 20 mg PO DAILY 06/23/24 07/01/24 Unknown History glimepiride 2 mg tablet 2 mg PO DAILY 06/23/24 07/01/24 Unknown History levothyroxine 50 mcg tablet 50 mcg PO DAILY 06/23/24 07/01/24 Unknown History metformin 500 mg tablet,extended 500 mg PO DAILY 06/23/24 07/01/24 Unknown History release 24 hr <Sara Kingston PA-C - Last Filed: 10/14/24 13:52> Allergies/Adverse reactions: Allergies Allergy/AdvReac Type Severity Reaction Status Date / Time No Known Drug Allergies Allergy Unknown Unknown Verified 10/14/24 10:23 <Sara Kingston PA-C - Last Filed: 10/14/24 13:52> [facility] Past Medical History Medical History: Medical History Acute on chronic kidney failure Diabetes Right-sided heart failure Aortic valve stenosis Mild aortic valve stenosis with a valve area of 1.5 cm2 on echocardiogram in March 2022. Pulmonary hypertension Severe pulmonary hypertension with a PASP of 69 mmHg on echocardiogram in March 2022. 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 CODE STATUS: She is okay with CPR and medications but does not wish to be intubated. Modified code, updated. Smoking packs per day: 2 Smoking cigarettes per day: 40.0 Years smoked: 50 Smoking pack-years: 100.00 Smoking status: Former smoker Tobacco type: cigarettes Smoking end date: 06/08/20 Alcohol intake: never Substance use: never Substance use type: does not use Do You Feel Safe in your Home?: Yes Lack of Transportation: No Lack of Food: Never True Current Housing: I Have Housing Concerned About Future Housing: No Difficulty Paying Gas/Electric Bills: No Difficulty Paying for Meds: No Currently Unemployed: No Education: High School Diploma/GED Difficulty w/ Childcare or Family Care: No Additional living arrangements comments: Assisted living at [facility]. Additional occupation/education comments: Retired. Spiritual care concerns: No <Sara Kingston PA-C - Last Filed: 10/14/24 13:52> Exam Narrative: GENERAL: [Well-appearing, well-nourished, and in no acute distress.] HEAD: [Normocephalic, atraumatic.] EYES: [PERRLA and EOMI.] ENT: Nares clear, no rhinorrhea or epistaxis. Mucous membranes moist. NECK: Supple. CHEST: [Clear to auscultation. No respiratory distress.] HEART: [Regular rate and rhythm]. No murmur heard. [Normal peripheral pulses.] ABDOMEN: [Soft, nondistended], [nontender], [No rigidity or guarding] RECTAL: No perianal lesions or rashes, no external hemorrhoids, digital rectal examination shows some bright red blood with internal hemorrhoids palpable but not painful. No anal fissures. No significant blood clot or any stool burden. EXTREMITIES: Normal range of motion. [No edema.] SKIN: Warm, dry, no rash. NEURO: [No focal deficits]. Alert and oriented [x3.] PSYCH: [Normal mood and affect.] <Nish Gonzalez MD - Last Filed: 10/14/24 17:57> Course Vital Signs Vital signs: Vital Signs Temperature 36.5 C 10/14/24 10:18 Pulse Rate 65 10/14/24 10:18 Respiratory Rate 18 10/14/24 10:18 Blood Pressure 142/61 H 10/14/24 10:18 Pulse Oximetry 99 10/14/24 10:18 Oxygen Delivery Room Air 10/14/24 10:18 Temperature 36.5 C 10/14/24 10:18 Pulse Rate 88 10/14/24 17:15 Respiratory Rate 18 10/14/24 17:15 Blood Pressure 168/82 H 10/14/24 17:15 Pulse Oximetry 93 10/14/24 17:15 Oxygen Delivery Room Air 10/14/24 10:18 <Sara Kingston PA-C - Last Filed: 10/14/24 13:52> Vital Signs Temperature 36.5 C 10/14/24 10:18 Pulse Rate 65 10/14/24 10:18 Respiratory Rate 18 10/14/24 10:18 Blood Pressure 142/61 H 10/14/24 10:18 Pulse Oximetry 99 10/14/24 10:18 Oxygen Delivery Room Air 10/14/24 10:18 Temperature 36.5 C 10/14/24 10:18 Pulse Rate 88 10/14/24 17:15 Respiratory Rate 18 10/14/24 17:15 Blood Pressure 168/82 H 10/14/24 17:15 Pulse Oximetry 93 10/14/24 17:15 Oxygen Delivery Room Air 10/14/24 10:18 <Nish Gonzalez MD - Last Filed: 10/14/24 17:57> MDM - GI Bleed MDM Narrative Medical decision making narrative: MSE by ALONZO in triage. <Sara Kingston PA-C - Last Filed: 10/14/24 13:52> MSE by ALONZO in triage. This 83-year-old female with history of diverticulosis, internal hemorrhoid, previous lower GI bleeding from hemorrhoids, atrial fibrillation taking Eliquis. She presents for repeat evaluation for rectal bleeding. She notices blood red blood per rectum without any pain when she has the restroom. Wears a pad and diaper which accumulates some blood but no blood clots. Denies any abdominal pain, pelvic pain rectal pain. No lightheaded sensation, passing out or syncope. No chest pain or difficulty breathing. Normal vital signs, stable blood pressure, no tachycardia, fever or hypoxia. She has an unremarkable examination but does have some internal hemorrhoids on palpation with bright red blood per rectum but no significant hemorrhage or any blood clot formation. No fissures or any perianal involvement or lesions. Workup was obtained including blood work including CBC, CMP, CT scan with contrast in coag studies obtained. Patient's recent CT was unremarkable last week will assess for any interval change or development. Patient has seen Dr. Pelayo and had previous colonoscopy in December with diverticulosis and internal hemorrhoids. Workup shows no leukocytosis, hemoglobin stable at 13.2 around her baseline. Normal platelets. Coagulation studies are very mildly prolonged, BUN and creatinine at around baseline, normal electrolytes otherwise. Normal glucose, normal LFTs. Urinalysis shows urinary tract infection and previous cultures were shown to have Bactrim sensitive bacteria. Patient provided dose of Bactrim be sent home with a course for this. Spoke to Dr. Pelayo from Gastroenterology who recommended general surgery evaluation on outpatient basis given her hemodynamic stability and lack of any anemia or significant hemorrhage. Spoke to the on-call general surgeon Dr. Robinson gamboa who agreed to see the patient outpatient and instructed her to call the clinic in the morning to schedule appointment. Patient was told about the plan of care and was told to hold her Violette chairez in anticipation of being seen in clinic on a short-term basis. Patient will return with any new or worsening concerns and was safe for discharge at this time. <Nish Gonzalez MD - Last Filed: 10/14/24 17:57> Differential Diagnosis Differential diagnosis: Likely hemorrhoids, Lower gastrointestinal hemorrhage, hematochezia, melena, anal fissure and other <Nish Gonzalez MD - Last Filed: 10/14/24 17:57> Medical Records Attestation: I reviewed the patient's medical records. <Nish Gonzalez MD - Last Filed: 10/14/24 17:57> Lab Data Attestation: I reviewed the patient's lab results. <Nish Gonzalez MD - Last Filed: 10/14/24 17:57> Result diagrams: 10/14/24 13:57 10/14/24 13:57 <Sara Kingston PA-C - Last Filed: 10/14/24 13:52> Labs: Lab Results 10/14/24 10/14/24 Range/Units 13:57 16:46 WBC 7.0 (4.5-10.0) K/mm3 RBC 4.27 (4.2-5.4) M/mm3 Hgb 13.2 (12.0-15.0) g/dL Hct 39.8 (37.0-47.0) % MCV 93.2 (80-100) fl MCH 30.9 (26-34) pg MCHC 33.2 (32-36) g/dl RDW 13.1 (11.5-14.5) % Plt Count 148 L (150-375) k/mm3 MPV 10.1 (7.4-10.4) fl Immature Gran % (Auto) 1.3 H (0-0.5) % Neut % (Auto) 77.9 H (45.5-73.1) % Lymph % (Auto) 9.7 L (18.3-44.2) % Jack % (Auto) 10.4 H (2.6-8.5) % Eos % (Auto) 0.4 (0-4.4) % Baso % (Auto) 0.3 (0.2-1.2) % Lymph # (Auto) 0.68 L (0.9-3.2) K/mm3 Jack # (Auto) 0.7 H (0.1-0.6) K/mm3 Eos # (Auto) 0.0 (0-0.3) K/mm3 Baso # (Auto) 0.0 (0.0-0.1) K/mm3 Abs Immat Gran (auto) 0.09 H (0.00-0.031) K/mm3 Absolute Neuts (auto) 5.5 (1.3-6.7) K/mm3 Absolute Nucleated RBC 0.000 (0.0-0.012) K/mm3 Nucleated RBC % 0.0 (0.0-0.2) % PT 16.6 H (11.1-14.7) Seconds INR 1.3 APTT 37.3 H (22.3-36.8) Seconds Sodium 140 (137-145) mmol/L Potassium 4.9 (3.4-5.0) mmol/L Chloride 107 (98-107) mmol/L Carbon Dioxide 20 L (22-30) mmol/L Anion Gap 13 H (4-12) mmol/L BUN 31 H (7-17) mg/dL Creatinine 1.27 H (0.7-1.0) mg/dL Estim Creat Clear Calc 24 ml/min Estimated GFR 40 L (59 - ) Glucose 72 (65-110) mg/dL Calcium 9.1 (8.4-10.2) mg/dL Total Bilirubin 1.0 (0.2-1.3) mg/dL AST 31 (14-36) U/L ALT 25 (6-35) U/L Alkaline Phosphatase 88 (38-126) U/L Total Protein 8.0 (6.3-8.2) g/dL Albumin 4.6 (3.5-5.1) g/dL Urine Color Yellow (Yellow) Urine Appearance Cloudy H (Clear) Urine pH 5.5 (5.0-9.0) Ur Specific [place] > 1.045 H (1.001-1.035) Urine Protein 2+ H (Negative) mg/dL Urine Glucose (UA) 3+ H (Negative) mg/dL Urine Ketones Negative (Negative) mg/dL Ur Blood (Man) 3+ H (Negative) Urine Nitrate Negative (Negative) Urine Bilirubin Negative (Negative) Urine Urobilinogen 0.2 (<2.0) mg/dL Add Ur Microanalysis Reviewed Leukocyte Esterase Rfl 1+ H (Negative) MERRICK/UL Urine RBC 11-20 H (0-2) /hpf Urine WBC 51-100 H (0-3) /hpf Ur Squamous Epith Cells Many H (Few) /hpf Urine Bacteria 4+ /hpf Urine Casts 0-2 Urine Yeast (Budding) Present H (None) /hpf Blood Type A Positive Antibody Screen Negative <Sara Kingston PA-C - Last Filed: 10/14/24 13:52> Lab Results 10/14/24 10/14/24 Range/Units 13:57 16:46 WBC 7.0 (4.5-10.0) K/mm3 RBC 4.27 (4.2-5.4) M/mm3 Hgb 13.2 (12.0-15.0) g/dL Hct 39.8 (37.0-47.0) % MCV 93.2 (80-100) fl MCH 30.9 (26-34) pg MCHC 33.2 (32-36) g/dl RDW 13.1 (11.5-14.5) % Plt Count 148 L (150-375) k/mm3 MPV 10.1 (7.4-10.4) fl Immature Gran % (Auto) 1.3 H (0-0.5) % Neut % (Auto) 77.9 H (45.5-73.1) % Lymph % (Auto) 9.7 L (18.3-44.2) % Jack % (Auto) 10.4 H (2.6-8.5) % Eos % (Auto) 0.4 (0-4.4) % Baso % (Auto) 0.3 (0.2-1.2) % Lymph # (Auto) 0.68 L (0.9-3.2) K/mm3 Jack # (Auto) 0.7 H (0.1-0.6) K/mm3 Eos # (Auto) 0.0 (0-0.3) K/mm3 Baso # (Auto) 0.0 (0.0-0.1) K/mm3 Abs Immat Gran (auto) 0.09 H (0.00-0.031) K/mm3 Absolute Neuts (auto) 5.5 (1.3-6.7) K/mm3 Absolute Nucleated RBC 0.000 (0.0-0.012) K/mm3 Nucleated RBC % 0.0 (0.0-0.2) % PT 16.6 H (11.1-14.7) Seconds INR 1.3 APTT 37.3 H (22.3-36.8) Seconds Sodium 140 (137-145) mmol/L Potassium 4.9 (3.4-5.0) mmol/L Chloride 107 (98-107) mmol/L Carbon Dioxide 20 L (22-30) mmol/L Anion Gap 13 H (4-12) mmol/L BUN 31 H (7-17) mg/dL Creatinine 1.27 H (0.7-1.0) mg/dL Estim Creat Clear Calc 24 ml/min Estimated GFR 40 L (59 - ) Glucose 72 (65-110) mg/dL Calcium 9.1 (8.4-10.2) mg/dL Total Bilirubin 1.0 (0.2-1.3) mg/dL AST 31 (14-36) U/L ALT 25 (6-35) U/L Alkaline Phosphatase 88 (38-126) U/L Total Protein 8.0 (6.3-8.2) g/dL Albumin 4.6 (3.5-5.1) g/dL Urine Color Yellow (Yellow) Urine Appearance Cloudy H (Clear) Urine pH 5.5 (5.0-9.0) Ur Specific [place] > 1.045 H (1.001-1.035) Urine Protein 2+ H (Negative) mg/dL Urine Glucose (UA) 3+ H (Negative) mg/dL Urine Ketones Negative (Negative) mg/dL Ur Blood (Man) 3+ H (Negative) Urine Nitrate Negative (Negative) Urine Bilirubin Negative (Negative) Urine Urobilinogen 0.2 (<2.0) mg/dL Add Ur Microanalysis Reviewed Leukocyte Esterase Rfl 1+ H (Negative) MERRICK/UL Urine RBC 11-20 H (0-2) /hpf Urine WBC 51-100 H (0-3) /hpf Ur Squamous Epith Cells Many H (Few) /hpf Urine Bacteria 4+ /hpf Urine Casts 0-2 Urine Yeast (Budding) Present H (None) /hpf Blood Type A Positive Antibody Screen Negative <Nish Gonzalez MD - Last Filed: 10/14/24 17:57> Imaging Data Attestation: I personally reviewed and interpreted this imaging study as follows: <Nish Gonzalez MD - Last Filed: 10/14/24 17:57> My impression: Impressions Abdomen/Pelvis CT 10/14/24 14:59 IMPRESSION: 1. Moderate distal colonic diverticulosis. 2. Cardiomegaly with biatrial enlargement. 3. Dependent predominant groundglass opacities and septal line thickening in the bilateral lower lobes most likely mild pulmonary edema versus less likely pneumonia or chronic lung disease. <Nish Gonzalez MD - Last Filed: 10/14/24 17:57> Discharge Plan Discharge Clinical Impression: Internal hemorrhoid, bleeding, Diverticulosis, Acute UTI <Sara Kingston PA-C - Last Filed: 10/14/24 13:52> Patient Disposition: Home, Self-Care <Sara Kingston PA-C - Last Filed: 10/14/24 13:52> Condition: Stable <Sara Kingston PA-C - Last Filed: 10/14/24 13:52> Instructions: Antibiotic Form, Hemorrhoids (ED), Rectal Bleeding (ED) <Sara Kingston PA-C - Last Filed: 10/14/24 13:52> Additional Instructions: Your workup today was reassuring, you have a bleeding internal hemorrhoid which is likely the cause your symptoms. Please hold your Eliquis tonight and call the general surgeon's office tomorrow morning to schedule an appointment outpatient. They will see you in clinic and be able to take care of this outpatient. If you have any persistent or worsening bleeding, lightheadedness, syncope, developing abdominal pelvic pain or any other concerns please return to the ER at that time. <Sara Kingston PA-C - Last Filed: 10/14/24 13:52> Patient Language: Turkish <Sara Kingston PA-C - Last Filed: 10/14/24 13:52> Prescriptions: No Action metoprolol succinate 50 mg tablet extended release 24 hr 50 mg PO DAILY Benefiber Healthy Shape 5 gram/7.4 gram powder See Rx Instructions PO .COMPLEX Qty: 500 0RF Rx Instructions: Per titration sheet daily to bid; docusate sodium 100 mg capsule 100 mg PO BID Qty: 60 2RF magnesium citrate [OneLAX Magnesium Citrate] Solution 300 ml PO ONCE PRN (Reason: constipation) Qty: 296 0RF Rx Instructions: as a single dose as needed for 3-4 with BM. atorvastatin 80 mg tablet 80 mg PO DAILY Eliquis 2.5 mg tablet 2.5 mg BID amlodipine [Norvasc] 5 mg Tablet 5 mg PO QAM 30 Days Qty: 30 0RF Jardiance 10 mg Tablet 10 mg PO DAILY 30 Days Qty: 30 0RF spironolactone [Aldactone] 25 mg tablet 25 mg PO DAILY 30 Days Qty: 30 0RF glimepiride 2 mg tablet 2 mg PO DAILY levothyroxine 50 mcg tablet 50 mcg PO DAILY albuterol sulfate 90 mcg/actuation HFA aerosol inhaler 2 puff INHALATION Q4H PRN (Reason: Shortness Of Breath) fluoxetine 20 mg capsule 20 mg PO DAILY metformin 500 mg tablet extended release 24 hr 500 mg PO DAILY <Sara Kingston PA-C - Last Filed: 10/14/24 13:52> Follow-up/Referrals: UNKNOWN,DOCTOR [Primary Care Provider] - Bladimir Ceballos DO [Physician] - 1 Day (Rectal bleeding from internal hemorrhoid) <SAMMY Bunn Last Filed: 10/14/24 13:52> Time of Disposition: 17:56 <Sara Kingston PA-C - Last Filed: 10/14/24 13:52> 17:56 <Nish Gonzalez MD - Last Filed: 10/14/24 17:57>
[2024-10-14 14:12] LABS: Basophils Percent Auto 0.3 % (0.2-1.2); Eosinophils Percent Auto 0.4 % (0-4.4); Hematocrit 39.8 % (37.0-47.0); Hemoglobin 13.2 g/dL (12.0-15.0); Immature Granulocyte Absolute 0.09 K/mm3 (0.00-0.031); Immature Granulocyte Percent A 1.3 % (0-0.5); Lymphocytes Absolute Auto 0.68 K/mm3 (0.9-3.2); Lymphocytes Percent Auto 9.7 % (18.3-44.2); Mean Corpuscular HGB Conc 33.2 g/dl (32-36); Mean Corpuscular Hemoglobin 30.9 pg (26-34); Mean Corpuscular Volume 93.2 fl (80-100); Mean Platelet Volume 10.1 fl (7.4-10.4); Monocytes Absolute Auto 0.7 K/mm3 (0.1-0.6); Monocytes Percent Auto 10.4 % (2.6-8.5); Neutrophils Absolute Auto 5.5 K/mm3 (1.3-6.7); Neutrophils Percent Auto 77.9 % (45.5-73.1); Platelet Count Result 148 k/mm3 (150-375); Red Blood Count 4.27 M/mm3 (4.2-5.4); Red Cell Distribution Width 13.1 % (11.5-14.5)
[2024-10-14 14:25] LABS: Alanine Aminotransferase 25 U/L (6-35); Albumin Level 4.6 g/dL (3.5-5.1); Alkaline Phosphatase 88 U/L (38-126); Anion Gap 13 mmol/L (4-12); Aspartate Amino Transferase 31 U/L (14-36); Blood Urea Nitrogen 31 mg/dL (7-17); Calcium 9.1 mg/dL (8.4-10.2); Carbon Dioxide 20 mmol/L (22-30); Chloride 107 mmol/L (98-107); Estimated CRCL calculation 24 ml/min; Estimated Glomerular Filt Rate 40; Glucose 72 mg/dL (65-110); Potassium 4.9 mmol/L (3.4-5.0); Sodium 140 mmol/L (137-145)
[2024-10-14 14:28] LABS: INR 1.3; Prothrombin Time 16.6 Seconds (11.1-14.7)
[2024-10-14 14:29] LABS: Partial Thromboplastin Time 37.3 Seconds (22.3-36.8)
--- OUTSIDE RECORDS SUMMARY | 2024-10-14 14:44 | XMS_ITS | Patient Health Summary ---
Author Organization [facility] [employer] Address [address] [address] Care Team Providers Care It Operations Specialist Name Role Phone Benny Wilkes MD Primary Care Provider [phone] Note from [facility],non-owned Affiliates and Associated Physician Practices is amultiple site organization consisting of ambulatory clinics and hospital sitesin [place], [place], [place] and [place]. This disclosure is being madepursuant to the Care Everywhere program and may not contain all information available regarding this patient. Last updated 18.[facility] [employer] Allergies No known active allergies Medications * [...] 05/16/2021) Performed for PRANAY (acute kidney injury) ([facility]) * BASIC METABOLIC PANEL (CALCIUM TOTAL)(Performed 05/16/2021) Performed for PRANAY (acute kidney injury) ([facility]) * GLUCOSE - POINT OF CARE(Performed 05/16/2021) * BASIC METABOLIC PANEL (CALCIUM TOTAL)(Performed 05/16/2021) Performed for PRANAY (acute kidney injury) ([facility]) * GLUCOSE - POINT OF CARE(Performed 05/16/2021) * GLUCOSE - POINT OF CARE(Performed 05/15/2021) * B-TYPE NATRIURETIC PEPTIDE(Performed 05/15/2021) Performed for PRANAY (acute kidney injury) ([facility]) * MRI ANGIO BRAIN ARTERIAL WO [...] (STL)(Performed 04/25/2021) Performed for Diagnosis unknown * UT TEAEC W/PATCH GRF CRTD VRT SUBCLA NCK [...] Results * EVENT MONITOR (08/18/2021 1:13 PM DINING CAR STEWARD) Narrative Tere Dubon CNMT - 08/18/2021 1:13 PM DINING CAR STEWARD Tere Dubon CNMT 08/18/2021 1:14 PM Device [...] - 1.48 ng/dL 05/17/2021 6:09 AM CDT [facility] Blood BLOOD SPECIMEN / Unknown Venipuncture / Unknown 05/17/2021 3:33 AM CDT 05/17/2021 3:45 AM CDT Calixto Glass MD LAB - CHEMISTRY SHANELL MENDES Performing Organization Address [facility] de Phone Number [facility] [id number] [place] [address] * (ABNORMAL) TSH REFLEX FREE T4 (05/17/2021 3:33 AM CDT) Only the most recent of3 resultswithin the time period is included. Pathologist [facility] TSH 43.298(H) 0.350 - 4.940 uIU/mL 05/17/2021 4:40 AM CDT [facility] Blood BLOOD SPECIMEN / Unknown Venipuncture / Unknown 05/17/2021 3:33 AM CDT 05/17/2021 3:45 AM CDT Calixto Glass MD LAB - CHEMISTRY SHANELL MENDES Performing Organization Address [facility] de Phone Number [facility] [address] [place], [place] [id number] * (ABNORMAL) RENAL FUNCTION PANEL (05/17/2021 3:33 AM CDT) Pathologist [facility] Glucose 104 70 - 105 mg/dL 05/17/2021 4:11 AM CDT [facility] Sodium 141 136 - 145 mmol/L 05/17/2021 4:11 AM CDT [facility] Potassium 3.5 3.5 - 5.1 mmol/L 05/17/2021 4:11 AM CDT [facility] Chloride 108(H) 98 - 107 mmol/L 05/17/2021 4:11 AM CDT [facility] CO2 22(L) 23 - 31 mmol/L 05/17/2021 4:11 AM CDT [facility] Calcium 8.4 8.4 - 10.4 mg/dL 05/17/2021 4:11 AM CDT [facility] Anion Gap 11 8 - 18 mmol/L 05/17/2021 4:11 AM CDT [facility] BUN 16 9.8 - 20.1 mg/dL 05/17/2021 4:11 AM CDT [facility] Creatinine 1.10 0.57 - 1.11 mg/dL 05/17/2021 4:11 AM CDT [facility] Albumin 3.5 3.2 - 4.6 gm/dL 05/17/2021 4:11 AM CDT [facility] Phosphorus 2.2(L) 2.3 - 4.7 mg/dL 05/17/2021 4:11 AM CDT [facility] eGFR by MDRD 48 mL/min/1.7 3m2 05/17/2021 4:11 AM CDT [facility] eGFR by MDRD 58 mL/min/1.7 3m2 05/17/2021 4:11 AM CDT [facility] Blood BLOOD SPECIMEN / Unknown Venipuncture / Unknown 05/17/2021 3:33 AM CDT 05/17/2021 3:45 AM CDT Calixto Glass MD LAB - CHEMISTRY SHANELL MENDES [facility] Organization Address City/State/ZIP Co de Phone Number [facility] [address] [place] [address] * (ABNORMAL) GLUCOSE - POINT OF CARE (05/16/2021 5:09 PM CDT) Only the most recent of34 resultswithin the time period is included. Glucose WB/POC 133(H) 70 - 106 mg/dL 05/16/2021 5:28 PM CDT [facility] Specimen Type Cap Fingerstick 2020 5:28 PM CDT [facility] Blood BLOOD SPECIMEN / Unknown 05/16/2021 5:09 PM CDT 05/16/2021 5:28 PM CDT Chelsie Kevin MD LAB - POINT OF CARE ORDERABLES [facility] [address] [place] [address] * (ABNORMAL) CBC W AUTO [...] - 13.0 % 05/16/2021 12:35 PM CDT [facility] Eosinophils % 1.0 0.0 - 6.0 % 05/16/2021 12:35 PM CDT [facility] Basophils % 0.3 0.0 - 2.0 % 05/16/2021 12:35 PM CDT [facility] Immature Granulocytes 0.3 0 - 1 % 05/16/2021 12:35 PM CDT [facility] Neutrophil Absolute 4.68 2.01 - 7.14 x10E9/L 05/16/2021 12:35 PM CDT [facility] Lymphocytes Absolute 0.48(L) 1.07 - 3.94 x10E9/L 05/16/2021 12:35 PM CDT [facility] Monocytes Absolute 0.56 0.26 - 1.07 x10E9/L 05/16/2021 12:35 PM CDT [facility] Eosinophils Absolute 0.06 0 - 0.47 x10E9/L 05/16/2021 12:35 PM CDT [facility] Basophils Absolute 0.02 0 - 0.08 x10E9/L 05/16/2021 12:35 PM CDT [facility] Immature Granulocytes Absolute 0.02 0.00 - 0.06 x10E9/L 05/16/2021 12:35 PM CDT [facility] nRBC Auto 0 /100 WBC 05/16/2021 12:35 PM CDT [facility] Blood BLOOD SPECIMEN / Unknown Venipuncture / Unknown 05/16/2021 12:27 PM CDT 05/16/2021 12:31 PM CDT Rosey Palafox TILE CONDUIT LAYER-INDUSTRIAL CAFETERIA MANAGER LAB - HEMATOLOG Y ORDERABLES [facility] [address] [place] [address] * (ABNORMAL) BASIC METABOLIC PANEL (CALCIUM TOTAL) (05/16/2021 12:27 PM CDT) Only the most recent of14 resultswithin the time period is included. [facility] Glucose 130(H) 70 - 105 mg/dL 05/16/2021 12:50 PM CDT [facility] Sodium 141 136 - 145 mmol/L 05/16/2021 12:50 PM CDT [facility] Potassium 3.6 3.5 - 5.1 mmol/L 05/16/2021 12:50 PM CDT [facility] Chloride 108(H) 98 - 107 mmol/L 05/16/2021 12:50 PM CDT [facility] CO2 23 23 - 31 mmol/L 05/16/2021 12:50 PM CDT [facility] Calcium 8.3(L) 8.4 - 10.4 mg/dL 05/16/2021 12:50 PM CDT [facility] Anion Gap 10 8 - 18 mmol/L 05/16/2021 12:50 PM CDT [facility] BUN 18 9.8 - 20.1 mg/dL 05/16/2021 12:50 PM CDT [facility] Creatinine 1.20(H) 0.57 - 1.11 mg/dL 05/16/2021 12:50 PM CDT [facility] eGFR by MDRD 43 mL/min/1.7 3m2 05/16/2021 12:50 PM CDT [facility] eGFR by MDRD 52 mL/min/1.7 3m2 05/16/2021 12:50 PM CDT [facility] Blood BLOOD SPECIMEN / Unknown Venipuncture / Unknown 05/16/2021 12:27 PM CDT 05/16/2021 12:31 PM CDT Rosey Pal[employer]ox TILE CONDUIT LAYER-INDUSTRIAL CAFETERIA MANAGER LAB - CHEMISTRY ORDERABLES [facility] [address] [place] [address] * (ABNORMAL) B-TYPE NATRIURETIC PEPTIDE (05/15/2021 12:25 PM CDT) Only the most recent of2 resultswithin the time period is included. BNP 621(H) <=100 pg/mL 05/15/2021 12:52 PM CDT [facility] Blood BLOOD SPECIMEN / Unknown Venipuncture / Unknown 05/15/2021 12:25 PM CDT 05/15/2021 12:27 PM CDT Chelsie Kevin MD LAB - CHEMISTRY SHANELL MENDES [facility] [address] [place] [address] * MRI ANGIO BRAIN ARTERIAL [...] follow-up 80-year-old female. Prior CVA TECHNIQUE: MRA [id number] of the head without contrast. 3D/MIP reconstructions [...] follow-up 80-year-old female. Prior CVA TECHNIQUE: MRA [id number] of the head without contrast. 3D/MIP reconstructions [...] Mild left M1 stenosis. *Reading Radiologist: Octavio gN on 05/15/2021 at 10:54 AM Emerita Dutta [...] <0.010 <0.038 ng/mL 05/14/2021 10:18 PM CDT [facility] Blood BLOOD SPECIMEN / Unknown Venipuncture / Unknown 05/14/2021 9:54 PM CDT 05/14/2021 9:56 PM CDT Emerita Dutta MD LAB - CHEMISTRY SHANELL MENDES [facility] [address] [place] [address] * XR CHEST 1VW PORTABLE (05/14/2021 2:35 [...] CHEMISTRY ORDERABLES Performing Organization Address [facility] Co de Phone Number [facility] [id number] [place] [address] * TYPE + SCREEN PANEL (05/14/2021 2:30 PM CDT) Only the most recent of2 resultswithin the time period is included. ABO Rh A POS 05/14/2021 3:11 PM CDT [facility] Comment:History checked. Antibody Screen NEG 3:11 PM CDT [facility] Blood Bank BLOOD SPECIMEN / Unknown Venipuncture / Unknown 05/14/2021 2:30 PM CDT 05/14/2021 2:30 PM CDT Mindy Hicks PA-C LAB - BLOOD BANK ORDERABLES Performing Organization Address [facility] de Phone Number [facility] [address] [place] [address] * (ABNORMAL) PTT (05/14/2021 2:30 PM CDT) Only the most recent of2 resultswithin the time period is included. PTT 42.4(H) 23.0 - 38.4 sec 05/14/2021 2:50 PM CDT [facility] Blood BLOOD SPECIMEN / Unknown Venipuncture / Unknown 05/14/2021 2:30 PM CDT 05/14/2021 2:30 PM CDT Narrative [facility] - 05/14/2021 2:50 PM CDT Heparin Therapeutic Range for PTT: 71.0 - 109.0 seconds. Mindy Hicks PA-C LAB - COAGULATIO N ORDERABLES Performing Organization Address [facility] Co de Phone Number [facility] [id number] [place] [address] * (ABNORMAL) PT-INR (05/14/2021 2:30 PM CDT) Only the most recent of3 resultswithin the time period is included. PT 18.5(H) 12.1 - 14.8 sec 05/14/2021 2:49 PM CDT [facility] INR 1.6(H) 0.9 - 1.1 05/14/2021 2:49 PM CDT [facility] Blood BLOOD SPECIMEN / Unknown Venipuncture / Unknown 05/14/2021 2:30 PM CDT 05/14/2021 2:30 PM CDT Narrative [facility] - 05/14/2021 2:49 PM CDT Conventional Warfarin Anticoagulant Therapy: INR Reference Range: 2.0-3.0 Intensive Warfarin Anticoagulant Therapy: INR Reference Range: 2.5-3.5 Mindy Hicks PA-C LAB - COAGULATIO N ORDERABLES Performing Organization Address [place]/[facility] Co de Phone Number [facility] [address] [place], [place] [id number] * (ABNORMAL) CREATININE - POCT INTERFACED (05/14/2021 2:03 PM CDT) Creatinine POCT 2.30(H) 0.70 - 1.20 mg/dL 05/14/2021 2:15 PM CDT [facility] Blood BLOOD SPECIMEN / Unknown 05/14/2021 2:03 PM CDT 05/14/2021 2:15 PM CDT Emerita Dutta MD LAB - POINT OF CARE ORDERABLES Performing Organization Address [place]/[facility] Co de Phone Number [facility] [address] [place] [address] * CT BRAIN - Stroke (05/14/2021 1:59 [...] (Bezet) 382 ms [facility] MUSE Calculated R [place] -8 degrees [facility] MUSE Calculated T [place] 166 degrees [facility] MUSE Interpretation EKG Atrial fibrillation Inferior infarct (cited on or before 23-FEB-2012) Abnormal ECG When compared with ECG of 05-OCT-2014 11:08, Atrial fibrillation has replaced Sinus rhythm Confirmed by ELOY VILLASEÑOR MD ([id number]) on 05/16/2021 9:18:45 PM [facility] MUSE 05/14/2021 1:46 PM CDT 05/16/2021 9:18 PM CDT Mindy Hicks PA-C ECG ORDERABLES Performing Organization Address [place]/[facility] Co de Phone Number [facility] * CARDIAC EKG ORDER (05/11/2021 5:20 PM CDT) Only the most recent of3 resultswithin the time period is included. Narrative 05/11/2021 5:20 PM CDT Ordered by an unspecified provider. Scanned Document CARDIAC SERVICES ORD ERABLES * (ABNORMAL) VITAMIN D 25-HYDROXY (05/08/2021 5:00 AM CDT) Vitamin D, 25 Hydroxy 24.8(L) 30 - 100 ng/mL 05/08/2021 7:35 AM CDT [facility] Blood BLOOD SPECIMEN / Unknown 05/08/2021 5:00 AM CDT 05/08/2021 6:45 AM CDT Narrative [facility] - 05/08/2021 7:35 AM CDT Vitamin D Status: Deficiency <20 ng/mL Insufficiency 20-30 ng/mL Sufficiency 30-100 ng/mL Toxicity >100 ng/mL Adriel Monson MD LAB - CHEMISTRY SHANELL MENDES Performing Organization Address [facility] Co de Phone Number [facility] [address] [place] [address] * VITAMIN B12 (05/08/2021 5:00 AM CDT) Vitamin B12 305 213 - 816 pg/mL 05/08/2021 7:45 AM CDT [facility] Blood BLOOD SPECIMEN / Unknown 05/08/2021 5:00 AM CDT 05/08/2021 6:46 AM CDT Adriel Monson MD LAB - CHEMISTRY SHANELL MENDES Performing Organization Address [facility] Co de Phone Number [facility] [address] [place] [address] * (ABNORMAL) TSH (05/08/2021 5:00 AM CDT) Only the most recent of3 resultswithin the time period is included. [facility] TSH 12.2092(H) 0.35 - 4.94 uIU/mL 05/08/2021 7:44 AM CDT [facility] Blood BLOOD SPECIMEN / Unknown 05/08/2021 5:00 AM CDT 05/08/2021 6:46 AM CDT Adriel Monson MD LAB - CHEMISTRY SHANELL MENDES [facility] [address] [place] [address] * (ABNORMAL) CBC W/O DIFFERENTIAL (05/03/2021 4:00 AM CDT) [facility] WBC 7.0 4.4 - 10.7 x10E9/L 05/03/2021 6:36 AM CDT [facility] RBC 3.34(L) 3.80 - 5.20 x10E12/L 05/03/2021 6:36 AM CDT [facility] Hemoglobin 9.7(L) 12.0 - 15.6 gm/dL 05/03/2021 6:36 AM CDT [facility] Hematocrit 30.0(L) 35.9 - 45.5 % 05/03/2021 6:36 AM CDT [facility] MCV 89.8 80.7 - 98.3 fl 05/03/2021 6:36 AM CDT [facility] MCH 29.0 26.7 - 34.0 pg 05/03/2021 6:36 AM CDT [facility] MCHC 32.3 30.8 - 35.9 gm/dL 05/03/2021 6:36 AM CDT [facility] Platelet Count 267 153 - 416 x10E9/L 05/03/2021 6:36 AM CDT [facility] RDW-CV 13.2 12.1 - 14.9 % 05/03/2021 6:36 AM CDT [facility] MPV 9.4 9.4 - 12.9 fl 05/03/2021 6:36 AM CDT [facility] Blood BLOOD SPECIMEN / Unknown 05/03/2021 4:00 AM CDT 05/03/2021 6:20 AM CDT Greer Pineda MD LAB - HEMATOLOGY OR DERABLES Performing Organization Address City/State/[facility] Co de Phone Number [facility] [address] [place] [address] * EMG (04/29/2021 9:29 PM [...] Yellow Straw, Yellow 04/26/2021 9:44 AM CDT [facility] Clarity UA Clear Clear 04/26/2021 9:44 AM CDT [facility] Glucose UA Negative Negative 04/26/2021 9:44 AM CDT [facility] Bilirubin UA Negative Negative 04/26/2021 9:44 AM CDT [facility] Ketone UA Trace(A) Negative 04/26/2021 9:44 AM CDT [facility] Specific [place] UA 1.014 1.005 - 1.030 04/26/2021 9:44 AM CDT [facility] Blood UA Negative Negative 04/26/2021 9:44 AM CDT [facility] pH UA 6.0 5.0 - 8.0 pH 04/26/2021 9:44 AM CDT [facility] Protein UA 1+(A) Negative 04/26/2021 9:44 AM CDT [facility] Urobilinogen UA Negative Negative mg/dL 04/26/2021 9:44 AM CDT [facility] Nitrite UA Negative Negative 04/26/2021 9:44 AM CDT [facility] Leukocyte UA Negative Negative 04/26/2021 9:44 AM CDT [facility] Urine Microscopy Urine microscopy to follow 04/26/2021 9:44 AM CDT [facility] Urine URINE SPECIMEN OBTAINED BY CLEAN CATCH PROCEDURE / Unknown Collection / Unknown 04/26/2021 9:30 AM CDT 04/26/2021 9:33 AM CDT Narrative [facility] - 04/26/2021 9:44 AM CDT Chelsie Kevin MD LAB - URINALYSIS ORD ERABLES [facility] [address] [place] [address] * URINE MICROSCOPIC ONLY (04/26/2021 9:30 AM CDT) RBC UA 0-2 None Seen, 0-2, 3-5 # /hpf 04/26/2021 9:47 AM CDT [facility] WBC UA 0-5 None Seen, 0-5 # /hpf 04/26/2021 9:47 AM CDT [facility] Bacteria UA None Seen None Seen 04/26/2021 9:47 AM CDT [facility] Squamous Epithelial Cells None Seen None Seen, 0-2, 3-5 /hpf 04/26/2021 9:47 AM CDT [facility] Urine URINE SPECIMEN OBTAINED BY CLEAN CATCH PROCEDURE / Unknown Collection / Unknown 04/26/2021 9:30 AM CDT 04/26/2021 9:33 AM CDT Narrative [facility] - 04/26/2021 9:47 AM CDT Chelsie Kevin MD LAB - URINALYSIS ORD ERABLES [facility] [address] [place] [address] * ETT LINE PERFORMABLE (04/25/2021 3:48 PM CDT) Narrative Kyara Barreto APRN-CRNA - 04/25/2021 3:48 PM CDT Kyara Barreto APRN-CRNA 04/25/2021 3:49 PM Endotracheal Tube Placement: Patient Location: OR. Intubation Event Date/Time: 04/25/2021 2:40 PM Procedure: intubation ([id number]). Procedure Section: Sedation: under general anesthesia. Indications [...] Placement (04/25/2021 3:46 PM CDT) Narrative EstevanKyara, JOHNNIEMONTESSORI TEACHER - 04/25/2021 3:46 PM CDT Lone Wolf, MABLE Miller 04/25/2021 3:48 PM Arterial Line Placement Procedure Note Patient Location: OR. Procedure: Arterial Line ([id number]). Procedure Section Indications: other - please comment [...] CDT) Case Report Surgical Pathology Report Case: [id number] Authorizing Provider: Cem Lo MD Collected: 04/25/2021 03:17 PM Ordering Location: [address] NEURO/NEUROSRG Received: 04/26/2021 06:54 AM Pathologist: Joyce Johnston MD Specimen: Plaque, RIGHT CAROTID PLAQUE 04/27/2021 4:18 PM CDT [facility] Final Diagnosis Right carotid artery plaque, endarterectomy: -- Calcific atherosclerotic plaque 04/27/2021 4:18 PM CDT [facility] Gross Description Received in formalin in a single container labeled Moriah Reed, right carotid plaque, is a 2.2 x 1.1 x 0.5 cm yellow-javier fragment of tissue with calcifications. The specimen is entirely submitted in cassette A1 for decalcification. CH/zoila 04/27/2021 4:18 PM CDT [facility] Microscopic Description Histologic evaluation supports the diagnosis. 04/27/2021 4:18 PM CDT [facility] Disclaimer All histochemical and/or immunohistochemical results are interpreted with controls that demonstrate appropriate staining reactions before reporting results. Note on use of immunocytochemistry reagents: This test was developed and its performance characteristic determined by [facility], Department of Laboratory Medicine. It has not [...] interpreted with caution. 04/27/2021 4:18 PM CDT [facility] Embedded Images 04/27/2021 4:18 PM CDT [facility] Pathology/Cytolo gy PLAQUE / Unknown 04/25/2021 3:17 PM CDT 04/26/2021 6:54 AM CDT Cem Lo MD LAB - PATHOLOGY/CYTO LOGY ORDERABLES [facility] [id number] [place] [address] * IR CAROTID CEREBRAL ANGIOGRAM [...] - 5.6 % 04/24/2021 4:29 AM CDT [facility] Estimated Average Glucose 166 mg/dL 04/24/2021 4:29 AM CDT [facility] Blood BLOOD SPECIMEN / Unknown Venipuncture / Unknown 04/24/2021 3:41 AM CDT 04/24/2021 3:56 AM CDT [facility] - 04/24/2021 4:29 AM CDT The following cutoff levels are recommended by [place] [employer]. A1c > 6.5% : considered [...] Pike MD LAB - CHEMISTRY SHANELL MENDES [facility] Organization Address City/State/ZIP Co de Phone Number [facility] [id number] [place] [address] * (ABNORMAL) LIPID PROFILE (04/24/2021 3:41 AM CDT) [facility] Cholesterol 167 <200 mg/dL 04/24/2021 4:48 AM CDT [facility] Triglycerides 131 <150 mg/dL 04/24/2021 4:48 AM CDT [facility] HDL Cholesterol 37(L) >40 mg/dL 08/22/202 [...] Pike MD LAB - CHEMISTRY SHANELL MENDES [facility] Organization Address City/State/ZIP Co de Phone Number [facility] [address] [place] [address] * CT ANGIO HEAD NECK STROKE (04/23/2021 [...] CDT PROCEDURE TITLE: CT ANGIO BRAIN NECK STROKE*[id number] HISTORY: Cerebral infarction, unspecified RELEVANT COMPARISON: Head CT done the same day Additional history (none relevant if blank): Left-sided weakness TECHNIQUE: Helical CT angiography acquisition of head Head and Neck with intravenous iodinated contrast using 80 cc's of Isovue 370. Arterial dissection protocol. 3-D post processing of the raw data, specifically MIP, performed with image capture by the technologist. All CT scans at [facility] are performed using dose optimization techniques as [...] 04/23/2021 PROCEDURE TITLE: CT ANGIO BRAIN NECK STROKE*[id number] HISTORY: Cerebral infarction, unspecified RELEVANT COMPARISON: Head CT done the same day Additional history (none relevant if blank): Left-sided weakness TECHNIQUE: Helical CT angiography acquisition of head Head and Neck with intravenous iodinated contrast using 80 cc's of Isovue 370. Arterial dissection protocol. 3-D post processing of the raw data, specifically MIP, performed with image capture by the technologist. All CT scans at [facility] are performed using dose optimization techniques as [...] or life-threatening deterioration of the following conditions: DEHYDRATION UNIT OPERATOR failure or compromise Critical care was time [...] 8:03 AM CDT PROCEDURE TITLE: XR CHEST 2VW*[id number] HISTORY: Weakness RELEVANT COMPARISON: March 09 Additional [...] MD - 03/14/2021 PROCEDURE TITLE: XR CHEST 2VW*[id number] HISTORY: Weakness RELEVANT COMPARISON: March 09 Additional [...] detected Not detected 03/14/2021 1:25 PM CDT [facility] Microbiology SPECIMEN FROM NASOPHARYNGEAL STRUCTURE / Unknown Collection / Unknown 03/13/2021 8:29 PM CDT 03/13/2021 9:41 PM CDT Narrative [facility] - 03/14/2021 1:25 PM CDT This nucleic acid amplification assay performance was validated by [facility]. This test has been [...] Denis DO LAB - MICROBIOLOGY O LUISANA [facility] [address] [place] [place] [address], [facility] [phone] * MAGNESIUM BLOOD (03/13/2021 8:29 PM CDT) Only the most recent of5 resultswithin the time period is included. Magnesium 2.0 1.6 - 2.6 mg/dL 03/13/2021 9:01 PM CDT [facility] Blood BLOOD SPECIMEN / Unknown Venipuncture / Unknown 03/13/2021 8:29 PM CDT 03/13/2021 8:33 PM CDT Wily Denis DO LAB - CHEMISTRY SHANELL MENDES [facility] [address] [place] [address] * (ABNORMAL) SALICYLATE LEVEL BLOOD (03/13/2021 8:29 PM CDT) Salicylate <5.0(L) 15.0 - 30.0 mg/dL 03/13/2021 9:01 PM CDT [facility] Blood BLOOD SPECIMEN / Unknown Venipuncture / Unknown 03/13/2021 8:29 PM CDT 03/13/2021 8:33 PM CDT Wily Denis DO LAB - CHEMISTRY SHANELL MENDES Performing Organization Address [facility] Co de Phone Number [facility] [address] [place] [address] * (ABNORMAL) ACETAMINOPHEN LEVEL (03/13/2021 8:29 PM CDT) Acetaminophen <3.0(L) 10.0 - 30.0 ug/mL 03/13/2021 9:01 PM CDT [facility] Blood BLOOD SPECIMEN / Unknown Venipuncture / Unknown 03/13/2021 8:29 PM CDT 03/13/2021 8:33 PM CDT Narrative [facility] - 03/13/2021 9:01 PM CDT [facility] [...] may alter the peak level. Contact the [facility] at or reserved for healthcare professionals to assist you in evaluating potentially toxic acetaminophen levels. Wily Hernandezjessica LAB - CHEMISTRY SHANELL MENDES Performing Organization Address [facility] Co de Phone Number [facility] [address] [place] [address] * PROCALCITONIN LEVEL (03/10/2021 6:54 AM CDT) Procalcitonin 0.09 <0.10 ng/mL 03/10/2021 12:13 PM CDT [facility] Blood BLOOD SPECIMEN / Unknown Lab Venipuncture / Unknown 03/10/2021 6:54 AM CDT 03/10/2021 6:58 AM CDT Narrative [facility] - 03/10/2021 12:13 PM CDT The [...] Change in Procalcitonin Calculator is available at [email or web address]-[email or web address] ([employer]) If clinical picture has not improved and PCT remains high, reevaluate and consider treatment failure or other causes. Bill Lane MD LAB - CHEMI STRY ORDERABLES [facility] [address] [place] [id number] * ECHOCARDIOGRAM 2D WITH DOPPLER (03/09/2021 3:45 PM CDT) 03/09/2021 3:45 PM CDT Narrative Procedure Note Calixto Ledezma MD - 03/10/[address] [address] Echocardiography Examination Transthoracic Name: MORIAH REED [facility]#: MR#: [id number] Admission Number: [id number] Study Date: 03/10/2021 Study Time: 11:55 AM Date Of : 1940 Age: 80 years Height: ( ) Weight: ( ) BSA: Gender: Female Blood Pressure: / Heart Rate: Exam Details Procedure Ordered: ECHOCARDIOGRAM 2D W/DOPPLER Procedure Components: Complete 2D, M-mode, complete spectral Doppler, color Doppler Procedure Status: Routine study Image Quality: Adequate Facility Location: [facility] Indication: Murmur, Atrial Fibrillation Procedure Manager Budget: Alireza Victor RDCS Ordering Provider: SAMANTHA VAUGHN Reading Physician: Calixto Ledezma MD Reading Group: [facility] Conclusions Left Ventricle: Left ventricle is [...] 0.06 m/s Function Mitral Valve MV Dec Fisher 5.22 m/s Pulmonic Valve PV PGmax 2 [...] if suspicious findings are present clinically. An [employer] certified facility. [facility] utilize [employer] as a reminder system to notify patients of their next recommended mammograms. 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) Color UA Yellow Straw, Yellow, Dark Yellow 10/06/2014 2:56 AM [facility] Clarity UA Clear 10/06/2014 2:56 AM [facility] Specific [place] UA >1.030(H) 1.005 - 1.030 10/06/2014 2:56 AM [facility] pH UA 7.5 5.0 - 8.0 pH 10/06/2014 2:56 AM [facility] Protein UA 2+(A) Negative 10/06/2014 2:56 AM [facility] Blood UA 3+(A) Negative 10/06/2014 2:56 AM [facility] Leukocyte UA Trace(A) Negative 10/06/2014 2:56 AM [facility] Nitrite UA Negative Negative 10/06/2014 2:56 AM [facility] Glucose UA Trace(A) Negative 10/06/2014 2:56 AM [facility] Ketone UA Trace(A) Negative 10/06/2014 2:56 AM [facility] Bilirubin UA Negative Negative 10/06/2014 2:56 AM [facility] Urobilinogen UA 0.2 0.1 - 1.0 EU/dL 10/06/2014 2:56 AM [facility] WBC UA Auto 20-50(A) 0-2, 2-5 #/hpf 10/06/2014 2:56 AM [facility] RBC UA Auto >100(A) 0-2, 2-5 #/hpf 10/06/2014 2:56 AM [facility] Epithelial Cell UA Auto 0-2 0-2, 2-5 #/hpf 10/06/2014 2:56 AM [facility] Bacteria UA Auto None seen None seen 10/06/2014 2:56 AM [facility] Hyaline Casts UA Auto 2-5(A) 0 - 2 #/lpf 10/06/2014 2:56 AM [facility] Reflex Status Culture to follow 10/06/2014 2:56 AM DINING CAR STEWARD [facility] Urine URINE SPECIMEN OBTAINED BY CLEAN CATCH PROCEDURE / Unknown 10/06/2014 2:26 AM DINING CAR STEWARD 10/06/2014 2:37 AM DINING CAR STEWARD Christy James MD LAB - URINALYSIS ORD ERABLES Performing Organization Address [facility] de Phone Number [facility] [address] [place] [address] * CULTURE URINE (10/06/2014 2:26 AM DINING CAR STEWARD) Culture No Growth (<1,000 CFU/mL) KENNA 10/08/2014 4:16 AM DINING CAR STEWARD [facility] Urine URINE SPECIMEN OBTAINED BY CLEAN CATCH PROCEDURE / Unknown 10/06/2014 2:26 AM DINING CAR STEWARD 10/06/2014 2:37 AM DINING CAR STEWARD Christy James MD LAB - MICROBIOLOGY O RDERABLES Performing Organization Address [facility] de Phone Number [facility] [address] [place] [address], [facility] * PHOSPHORUS BLOOD (10/06/2014 2:25 AM DINING CAR STEWARD) Phosphorus 3.1 2.5 - 4.9 mg/dL 10/06/2014 3:07 AM DINING CAR STEWARD [facility] Blood BLOOD SPECIMEN / Unknown 10/06/2014 2:25 AM DINING CAR STEWARD 10/06/2014 2:37 AM DINING CAR STEWARD Raysa Segundo APRN-INDUSTRIAL CAFETERIA MANAGER LAB - CHEMISTRY ORDERABLES Performing Organization Address [facility] de Phone Number [facility] [address] [place], [place] [phone] * CULTURE VRE (10/05/2014 9:18 PM DINING CAR STEWARD) Culture Negative for VRE KENNA 10/07/2014 10:22 AM [facility] Stool RECTAL SWAB / Unknown 10/05/2014 9:18 PM DINING CAR STEWARD 10/05/2014 9:22 PM DINING CAR STEWARD Christy James MD LAB - MICROBIOLOGY O RDERAANASTASIA Performing Organization Address [facility] Co de Phone Number [facility] [address] [place] [address], [facility] * CULTURE MRSA (10/05/2014 9:18 PM DINING CAR STEWARD) Culture Negative for MRSA KENNA 10/08/2014 11:20 AM DINING CAR STEWARD [facility] Microbiology SPECIMEN FROM NASAL FOSSAE / Unknown 10/05/2014 9:18 PM DINING CAR STEWARD 10/05/2014 9:22 PM DINING CAR STEWARD Christy James MD LAB - MICROBIOLOGY O RDERABLES Performing Organization Address [facility] [place] Co de Phone Number [facility] [address] [place] [address], [facility] * (ABNORMAL) ACT - POINT OF CARE (10/05/2014 4:04 PM DINING CAR STEWARD) Only the most recent of3 resultswithin the time period is included. ACT POCT 249(A) 125 - 187 Seconds [facility] POCT TESTING QC Verified Yes Yes [facility] POC T TESTING Blood specimen (specimen) BLOOD SPECIMEN / Unknown 10/05/2014 4:04 PM DINING CAR STEWARD Yesy Sheriff MD LAB - POINT OF CARE ORDERABLES Performing Organization Address [facility] [place] Co de Phone Number [facility] POCT TESTING [address] [place] [address], [facility] * CT ABDOMEN AND PELVIS WITH IV CONTRAST (10/05/2014 1:45 PM DINING CAR STEWARD) Anatomical Region Laterality Modality Abdomen, Pelvis Computed Tomogra phy 10/05/2014 2:03 PM DINING CAR STEWARD Impressions 10/05/2014 2:[address] of the abdomen and pelvis demonstrates no focal inflammatory process or other acute appearing abnormality. This examination was transcribed using the H-umus voice recognition system without human cuff folder. In an effort to expedite patient care, this report has not been adjusted for typographical, grammatical, and syntax by a trained medical records coordinator. Narrative 10/05/2014 2:[address] Abdomen with Contrast Indication: Abdominal pain [...] abnormality. This examination was transcribed using the H-umus voice recognition system without human cuff folder. In an effort to expedite patient care, this report has not been adjusted for typographical, grammatical, and syntax by a trained medical records coordinator. Tom De Anda MD CT ORDERABLES * CT CHEST PE (10/05/2014 1:43 PM DINING CAR STEWARD) Anatomical Region Laterality Modality Chest Computed Tomogra phy 10/05/2014 2:06 PM DINING CAR STEWARD Impressions 10/05/2014 2:08 PM DINING CAR STEWARD No pulmonary embolus is identified. This examination was transcribed using the H-umus voice recognition system without human cuff folder. In an effort to expedite patient care, this report has not been adjusted for typographical, grammatical, and syntax by a trained medical records coordinator. Narrative 10/05/2014 2:[address] Chest with Contrast INDICATION:Shortness of breath [...] identified. This examination was transcribed using the H-umus voice recognition system without human cuff folder. In an effort to expedite patient care, this report has not been adjusted for typographical, grammatical, and syntax by a trained medical records coordinator. Tom De Anda MD CT ORDERABLES * CARDIAC CATH PROCEDURE (10/05/2014 12:00 PM DINING CAR STEWARD) 10/05/2014 12:0 0 PM DINING CAR STEWARD Narrative Transcriptions Yesy Sheriff MD - 10/06/2014 12:22 PM CST [facility] CARDIAC CATHETERIZATION PATIENT: MORIAH REED MR#: [id number] ADMIT DATE: 10/05/2014 CSN: [id number] PROCEDURE DATE: 10/05/2014 :1940 PHYSICIAN: Yesy Sheriff MD ROOM: REFERRING PHYSICIAN: PROCEDURE: Drug-eluting stent deployment in the 1st diagonal branch. ARTERIAL SHEATH: A 6-[place] short guiding catheter, 6-[place] CLS 3.5guiding catheter. GUIDEWIRE: A 0.014 Whisper. [...] Femoral arterial sheath was removed, and a 6-[place] Angio-Seal devicedeployed with good hemostasis. No femoral hematoma. Pedal pulses intact.Patient returned to the holding area in stable condition. COMPLICATIONS: None. CONCLUSIONS: Successful drug-eluting stent deployment in the 1stdiagonal branch. YESY SHERIFF MD SIB/MODL #: [id number] cc: Sher Medina MD MEDICAL/SURGICAL CARDIAC CATHETERIZATION - DP Yesy Sheriff MD CARDIAC SERVICES ORD ERABLES * CARDIAC CATH CONSULT (for Epic Reporting) (10/05/2014 12:00 PM DINING CAR STEWARD) 10/05/2014 12:0 0 PM DINING CAR STEWARD Narrative Transcriptions Yesy Sheriff MD - 10/06/2014 12:19 PM CST [facility] CARDIAC CATHETERIZATION PATIENT: MORIAH REED MR#: [id number] ADMIT DATE: 10/05/2014 CSN: [id number] PROCEDURE DATE: 10/05/2014 :1940 PHYSICIAN: Yesy Sheriff MD ROOM: [place] [address] REFERRING PHYSICIAN: TOM DE ANDA PROCEDURE: Left heart catheterization. Left ventriculography.Selective coronary arteriography. CLINICAL SUMMARY: This is a 73-year-old white female who presents withchest tightness, abnormal ECG, and mild elevation of troponin. Coronaryangiography was undertaken. PROCEDURE: [place]. SITE OF ENTRY: Right femoral artery. LOCAL ANESTHESIA: One percent Xylocaine. PREMEDICATIONS: Versed 2 mg IV, fentanyl 50 mcg IV. CATHETERS: A 5-C[place] Verdean arterial sheath, 5-[place] pigtail, 5-[place] JL4,5- [place] 3DRC. PROCEDURE: The patient was brought to [...] None. HEMODYNAMICS: Preangiography pressures: Aorta 181/99, left [id number]/9. LEFT VENTRICULOGRAM: Left ventricular systolic and diastolic [...] be undertaken. YESY SHERIFF MD SIB/MODL #: [id number] cc: Sher Medina MD MEDICAL/SURGICAL CARDIAC CATHETERIZATION - DP Yesy Sheriff MD ECHO ORDERABLES Performing Organization Address City/[facility] Co de Phone Number [facility] CARDIAC SERVICES * LIPASE BLOOD (10/05/2014 11:40 AM DINING CAR STEWARD) Lipase 263 73 - 393 U/L 10/05/2014 12:07 PM DINING CAR STEWARD [facility] Blood BLOOD SPECIMEN / Unknown 10/05/2014 11:40 AM DINING CAR STEWARD 10/05/2014 11:43 AM DINING CAR STEWARD Tom De Anda MD LAB - CHEMISTRY SHANELL MENDES Performing Organization Address [facility] [place]/ZIP Co de Phone Number [facility] [address] [place] [id number] * ED SPLINT APPLICATION (06/28/2014 3:32 PM CDT) Narrative Tom De Anda MD - 06/28/2014 3:32 PM CDT Tom De Anda MD 06/28/2014 3:32 PM Provider contact with the patient: 06/28/2014 10:[address] [facility] EMERGENCY DEPARTMENT History Chief Complaint Patient presents [...] patient to follow-[place]: [place] [id number] [facility] [address] [facility] [address] Call in 1 day Sean Villareal DPM [address] [facility] [address] [facility] [address] Call in 1 day Sher Medina MD Disposition: Discharged I have reviewed the information recorded by the scribe and agree with its accuracy and contents--Dr. De Anda 06/28/2014 3:32 PM Transcribed by Geremias Verde--acting [...] ARUP Bill Only 04/09/2014 8:59 PM CDT [employer] ([facility]) Blood specimen (specimen) BLOOD SPECIMEN / Unknown Lab Venipuncture / Unknown 04/08/2014 11:59 AM CDT 04/08/2014 12:43 PM CDT Jefry Evans MD [facility] [employer] [facility]) [address] [place] [address], [facility] * (ABNORMAL) THYROGLOBULIN (04/08/2014 11:59 AM CDT) Only the most recent of2 resultswithin the time period is included. Thyroglobulin Antibody <0.9 0.0 - 4.0 IU/mL 04/09/2014 7:59 PM CDT [facility] ([facility]) Comment: INTERPRETIVE INFORMATION: Thyroglobulin Antibody A value of 4.0 IU/mL or less indicates a negative result for thyroglobulin antibodies. The Thyroglobulin Antibody assay is being performed using the [employer] Access DxI method. Thyroglobulin 0.4(L) 1.3 - 31.8 ng/mL 04/09/2014 7:59 PM CDT [facility] ([facility]) Comment: INTERPRETIVE INFORMATION: Thyroglobulin, Serum or Plasma [...] - 31.8 ng/mL 04/09/2014 7:59 PM CDT [facility] [employer] ([facility]) Comment: INTERPRETIVE INFORMATION: Thyroglobulin by LC-MS/MS, Serum/Plasma Lower limit of detection for Thyroglobulin by LC-MS/MS is 0.5 ng/mL. Test developed and characteristics determined by [employer]. See Compliance Statement B: [email or web address] Blood specimen (specimen) BLOOD SPECIMEN / Unknown Lab Venipuncture / Unknown 04/08/2014 11:59 AM CDT 04/08/2014 12:43 PM CDT Jefry Evans MD LAB - CHEMISTRY ORDERABLES Performing Organization Address [facility] Phone Number [facility] ([facility]) [address] [place] [address] * THYROGLOBULIN ANTIBODY (04/08/2014 11:59 AM CDT) Only the most recent of2 resultswithin the time period is included. Thyroglobulin Antibody <0.9 0.0 - 4.0 IU/mL 04/09/2014 7:59 PM CDT [facility] ([facility]) Comment: INTERPRETIVE INFORMATION: Thyroglobulin Antibody A value of 4.0 IU/mL or less indicates a negative result for thyroglobulin antibodies. The Thyroglobulin Antibody assay is being performed using the Gaby [employer] Access DxI method. Blood specimen (specimen) BLOOD SPECIMEN / Unknown Lab Venipuncture / Unknown 04/08/2014 11:59 AM CDT 04/08/2014 12:44 PM CDT Jefry Evans MD LAB - CHEMISTRY ORDERABLES Performing Organization Address [facility] Phone Number [facility] ([facility]) [address] [place] [address] * LAB RESULTS ORDER (11/01/2012 12:26 PM DINING CAR STEWARD) Narrative 11/01/2012 12:26 PM DINING CAR STEWARD Procedure Note Document, Scanned - 11/01/2012 12:26 PM CST Scanned Document LAB - THERAPEUTIC DR BEV MONITORING ORDERABLES * (ABNORMAL) THYROGLOBULIN PANEL (10/18/2012 9:21 AM DINING CAR STEWARD) Only the most recent of2 resultswithin the time period is included. Thyroglobulin Antibody <0.9 0.0 - 4.0 IU/mL [facility] Thyroglobulin 0.4(L) 1.3 - 31.8 ng/mL [facility] Comment Ref Lab [facility] Comment: Comments and Normal Ranges for Component Thyroglobulin Ab(IU/mL) INTERPRETIVE INFORMATION/ Thyroglobulin Antibody A value of 4.0 IU/mL or less indicates a negative result for thyroglobulin antibodies. The Thyroglobulin Antibody assay is being performed using the Gaby [employer] Access DxI method. Comments and Normal Ranges for Component Thyroglobulin(ng/mL) INTERPRETIVE INFORMATION/ Thyroglobulin, Serum or Plasma Specimens negative for thyroglobulin antibodies (TgAb) are tested for thyroglobulin (Tg) by chemiluminescent immunoassay (RHINA) using the Gaby Krypton Access (R) DxI method. Specimens with TgAb [...] BLOOD SPECIMEN / Unknown 10/18/2012 9:21 AM DINING CAR STEWARD 10/18/2012 9:36 AM DINING CAR STEWARD Narrative [facility] - 10/19/2012 10:28 AM DINING CAR STEWARD Performed By [address] [address] Jefry Evans MD LAB - CHEMISTRY ORDERABLES [facility] [address] [place] [address] * NM THYROID CA METS SCAN WHOLE BODY (10/16/2012 1:38 PM DINING CAR STEWARD) Only the most recent of2 resultswithin the time period is included. Anatomical Region Laterality Modality Chest Nuclear Medicine 10/21/2012 9:10 AM DINING CAR STEWARD Impressions 10/21/2012 9:22 AM DINING CAR STEWARD Unable to diagnose metastatic disease at this time. The intensity of uptake in the floor of the mouth and at the base of the neck has decreased since the post therapy images of April 02, 2012. Narrative 10/21/2012 9:22 AM DINING CAR STEWARD EXAMINATION: Nuclear medicine thyroid carcinoma metastatic whole [...] PM CDT Toi Farley 02/23/2012 8:42 PM Project Accountant visited this pt before end of shift - Pt sound asleep when Project Accountant came to visit. Rev. Toi Farley Procedure Note Toi Farley - 02/23/2012 8:41 PM CDT Project Accountant visited this pt before end of shift - Pt sound asleep whenChaplain came to visit. Rev. Toi Farley Rob Burton MD INPATIENT ANCILLARY CONSULT * GROSS + MICRO EXAM (02/23/2012 12:00 AM CDT) [facility] Surgeon Alton Burton [facility] Grossed By SAW [facility] Gross Report [facility] Comment: COPY TO: Sher Medina [id number] [facility], [address], [place] [address]. PROCEDURE: Right thyroid lobectomy GROSS DESCRIPTION: Received [...] a rim of burgundy-brown, unremarkable thyroid parenchyma. Hot Stamp Operator sections are submitted from superior to inferior pole in cassettes A-F, with bisected section from mid pole nodule in cassettes C/D and bisected section from lower pole nodule in cassette E/F. DYT/vr Microscopic Examination [facility] Comment: The right thyroid lobe section [...] reviewed the tumor and concur. AB/scs Diagnosis [facility] Comment: 1. Right thyroid lobe, lobectomy: [...] Unknown AB/scs Released by DIANA HERNANDEZ M.D. [facility] CPT Code 66161 [facility] SPECIMEN FROM THYROI D OBTAINED BY THYROIDECTOMY / Unknown 02/23/2012 02/23/2012 12:34 PM CDT Rob Burton MD LAB - PATHOLOGY/CYTO LOGY ORDERABLES Performing Organization Address City/State/[facility] Co de Phone Number [facility] [address] [place] [address] * US THYROID (02/08/2012 9:20 AM CDT) [...] Lewis MD - 09/28/2011 4:[address] [facility] Stress Test [facility] STRESS TEST PATIENT: MORIAH REED [facility]#: [id number] DATE OF SERVICE: 09/28/2011CCT#: [id number] : 1ROOM: REFERRING PHYSICIAN: ADMIT DATE: 09/28/2011 Maximum predicted heart rate: 149 85% of Max. predicted heart rate: 127 BENNY MPH HR BP SYMPTOMS STAGE GRADE REST 48528/80 1 1.7/10%226914/84PACs noted POST EXERCISE 136088/69 2 [id number] Duration of Exercise: 4:30 Reason for Termination: [...] of breath. CARMEN LEWIS MD ASN/JT #: [id number] CC:SHER MEDINA MD STRESS TEST - DP Sher Medina MD [facility] Address City/State/ZIP Co de Phone Number [...] Sher Medina MD DEXA ORDERABLES Care Teams It Operations Specialist Relationship Specialty Start Date End Date Benny Wilkes MD [facility] [address] PCP - General Internal Medicine 03/09/21
--- OUTSIDE RECORDS SUMMARY | 2024-10-14 14:44 | XMS_ITS | Clinical Summary ---
Author Organization [facility] Address [address] [place] [address] Care Team Providers Care Brake Rider Name Role Phone Benny Wilkes MD Primary Care Provider [phone] Source Comments [facility],non-owned Affiliates and Associated Physician Practices is amultiple site organization consisting of ambulatory clinics and hospital sitesin [place], [place], [place] and [place]. This disclosure is being madepursuant to the Care Everywhere program and may not contain all information available regarding this patient. Last updated 18.[facility] Allergies No known active allergies Medications * [...] - 105 mg/dL 05/17/2021 4:11 AM CDT [facility] Sodium 141 136 - 145 mmol/L 05/17/2021 4:11 AM CDT [facility] Potassium 3.5 3.5 - 5.1 mmol/L 05/17/2021 4:11 AM CDT [facility] Chloride 108(H) 98 - 107 mmol/L 05/17/2021 4:11 AM CDT [facility] CO2 22(L) 23 - 31 mmol/L 05/17/2021 4:11 AM CDT [facility] Calcium 8.4 8.4 - 10.4 mg/dL 05/17/2021 4:11 AM CDT [facility] Anion Gap 11 8 - 18 mmol/L 05/17/2021 4:11 AM CDT [facility] BUN 16 9.8 - 20.1 mg/dL 05/17/2021 4:11 AM CDT [facility] Creatinine 1.10 0.57 - 1.11 mg/dL 05/17/2021 4:11 AM CDT [facility] Albumin 3.5 3.2 - 4.6 gm/dL 05/17/2021 4:11 AM CDT [facility] Phosphorus 2.2(L) 2.3 - 4.7 mg/dL 05/17/2021 4:11 AM CDT [facility] eGFR by MDRD 48 mL/min/1.7 3m2 05/17/2021 4:11 AM CDT [facility] eGFR by MDRD 58 mL/min/1.7 3m2 05/17/2021 4:11 AM CDT [facility] Blood BLOOD SPECIMEN / Unknown Venipuncture / Unknown 05/17/2021 3:33 AM CDT 05/17/2021 3:45 AM CDT Calixto Glass MD LAB - CHEMISTRY SHANELL MENDES [facility] [address] [place] [address] * (ABNORMAL) HEMOGLOBIN A1C (04/24/2021 3:41 AM CDT) Hemoglobin A1c 7.4(H) 4.2 - 5.6 % 04/24/2021 4:29 AM CDT [facility] Estimated Average Glucose 166 mg/dL 04/24/2021 4:29 AM CDT [facility] Blood BLOOD SPECIMEN / Unknown Venipuncture / Unknown 04/24/2021 3:41 AM CDT 04/24/2021 3:56 AM CDT Narrative [facility] - 04/24/2021 4:29 AM CDT The following cutoff levels are recommended by [place] [employer]. A1c > 6.5% : considered [...] Pike MD LAB - CHEMISTRY SHANELL MENDES [facility] Organization Address City/State/ZIP Co de Phone Number [facility] [address] [place] [address] * DEXA BONE DENSITY 2 [...] Documents on File Type Date Recorded Patient Collaborative Physician Expl anation Adv Directive/Living Will/POA 04/29/2021 9:18 [...] 5:11 PM 03/11/2021 2:27 PM Care Teams Brake Rider Relationship Specialty Start Date End Date Benny Wilkes MD [address] [address] PCP - General Internal Medicine 03/09/21
--- OUTSIDE RECORDS SUMMARY | 2024-10-14 14:44 | XMS_ITS | Referral Summary ---
Author Organization [facility] Address [address] [place] [address] Care Team Providers Care Hospitality Team Member Name Role Phone Benny Wilkes MD Primary Care Provider [phone] Source Comments [facility],non-owned Affiliates and Associated Physician Practices is amultiple site organization consisting of ambulatory clinics and hospital sitesin [place], [place], [place] and [place]. This disclosure is being madepursuant to the Care Everywhere program and may not contain all information available regarding this patient. Last updated 18.[facility] Allergies No known active allergies Medications * [...] RENAL FUNCTION PANEL (05/17/2021 3:33 AM CDT) [facility] Glucose 104 70 - 105 mg/dL 05/17/2021 [...] - 4.6 gm/dL 05/17/2021 4:11 AM CDT [facility] Phosphorus 2.2(L) 2.3 - 4.7 mg/dL 05/17/2021 4:11 AM CDT [facility] eGFR by MDRD 48 mL/min/1.7 3m2 05/17/2021 4:11 AM CDT [facility] eGFR by MDRD 58 mL/min/1.7 3m2 05/17/2021 4:11 AM CDT [facility] Blood BLOOD SPECIMEN / Unknown Venipuncture / Unknown 05/17/2021 3:33 AM CDT 05/17/2021 3:45 AM CDT Calixto Glass MD LAB - CHEMISTRY SHANELL MENDES [facility] Organization Address City/State/ZIP Co de Phone Number [facility] [address] [place] [address] * (ABNORMAL) HEMOGLOBIN A1C (04/24/2021 3:41 AM CDT) Pathologist [facility] Hemoglobin A1c 7.4(H) 4.2 - 5.6 % 04/24/2021 4:29 AM CDT [facility] Estimated Average Glucose 166 mg/dL 04/24/2021 4:29 AM CDT [facility] Blood BLOOD SPECIMEN / Unknown Venipuncture / Unknown 04/24/2021 3:41 AM CDT 04/24/2021 3:56 AM CDT Narrative [facility] - 04/24/2021 4:29 AM CDT The following cutoff levels are recommended by [place] [employer]. A1c > 6.5% : considered [...] Pike MD LAB - CHEMISTRY SHANELL MENDES [facility] Organization Address City/State/ZIP Co de Phone Number [facility] [address] [place] [address] * DEXA BONE DENSITY 2 [...] Documents on File Type Date Recorded Patient Field Captain Expl anation Adv Directive/Living Will/POA 04/29/2021 9:18 [...] 5:11 PM 03/11/2021 2:27 PM Care Teams Hospitality Team Member Relationship Specialty Start Date End Date Benny Wilkes MD [address] [place] [address] PCP - General Internal Medicine 03/09/21
--- OUTSIDE RECORDS SUMMARY | 2024-10-14 14:44 | XMS_ITS | Encounter Summary ---
Author Organization [facility] Address [address] [place] [address] Care Team Providers Care [employer] Name Role Phone Benny Wilkes MD Primary Care Provider [phone] Encounter Details Date Type Department Care Team (Late st Contact Info) Description 04/27/2021 3:15 PM CDT Hospital Encounter [address] [id number] Lili Bethea MD [facility] [place] [id number] Aguilar Latham MD [facility] [address] [place] [id number] Eugene De Jesus MD [facility] [...] on filedocumented in this encounter Care Teams [employer] Relationship Specialty Start Date End Date Benny Wilkes MD [address] [address] PCP - General Internal Medicine 03/09/21 documented as of this encounter
[2024-10-14 16:05] VITALS: BP 166/91; PULSE 72; RESP 16; O2SAT 95
[2024-10-14 17:12] LABS: Add Urine Microscopic? YES; Appearance Urine Cloudy (Clear); Bacteria Urine 4+ /hpf; Bilirubin Urine Negative (Negative); Blood Urine 3+ (Negative); Budding Yeast Urine Present /hpf; Color Urine Yellow (Yellow); Glucose Urine UA 3+ mg/dL (Negative); Ketones Urine Negative (Negative); Leukocyte Esterase Ur 1+ LEU/UL (Negative); Need Manual Microscopic Reviewed; Nitrate Urine Negative (Negative); Non Pathogenic Casts 0-2; Protein Urine 2+ mg/dL (Negative); Specific Grav Ur > 1.045 (1.001-1.035); Squamous Epithelial Cell Urine Many /hpf (Few); Urobilinogen Urine 0.2 mg/dL (<2.0); WBC Urine 51-100 /hpf (0-3); pH Urine 5.5 (5.0-9.0)
[2024-10-14 17:15] VITALS: BP 168/82; PULSE 88; RESP 18; O2SAT 93
[2024-10-14 18:07] VITALS: BP 160/79; PULSE 73; RESP 14; TEMP 36.4; O2SAT 97
[2024-10-14] MEDS: SULFAMETHOXAZOLE/TRIMETHOPRIM 800/160 MG DS TABLET 1 TAB PO (18:07)
== END 2024-10-14 18:34 | disposition home or self-care (01) ==
PROVIDERS: Physician Assistant; Emergency Provider Student in an Organized Health Care Education/Training Program
DX: K64.8 Other hemorrhoids (principal); K62.5 Hemorrhage of anus and rectum; K57.30 Diverticulosis of large intestine without perforation or abscess without bleeding; N39.0 Urinary tract infection, site not specified; I13.0 Hypertensive heart and chronic kidney disease with heart failure and stage 1 through stage 4 chronic kidney disease, or unspecified chronic kidney disease; E11.22 Type 2 diabetes mellitus with diabetic chronic kidney disease; N18.9 Chronic kidney disease, unspecified; I50.810 Right heart failure, unspecified; Z79.84 Long term (current) use of oral hypoglycemic drugs
CPT/HCPCS: 36415; 74177; 80053; 81001; 85025; 85610; 85730; 86850; 86900; 86901; 99284; A9270; Q9967

== ENCOUNTER 2024-10-20 20:53 | Inpatient (IN) | payer OTHER, MEDICAID, SELFPAY ==
--- NOTE | ~2024-10-20 | XR_ITS ---
Portable chest x-ray Comparison: 03/12/2023 Clinical History: Pneumonia Findings: There is central congestive change and mild to moderate probable pulmonary edema pattern. Cardiomediastinal silhouette is stable. Bones and soft tissues are unremarkable. Impression: Central congestive change and mild to moderate probable pulmonary edema pattern. Correlate clinically for pneumonia. Reviewed, dictated and finalized at [facility]. E PURIFIER Impression: Central congestive change and mild to moderate probable pulmonary edema pattern . Correlate clinically for pneumonia.
--- NOTE | ~2024-10-20 | XR_ITS ---
Portable chest x-ray Comparison: 10/21/2024 Clinical History: Pulmonary edema, pneumonia Findings: There is diffuse mild interstitial prominence in the lungs. There is probable hazy left ba silar airspace disease and possible minimal left pleural effusion. Cardiomediastinal silhouette is s table. Bones and soft tissues are unremarkable. Impression: Hazy left basilar airspace disease is suggestive of pneumonia. Consider asymmetric pulmonary edema is a potential alternative consideration. Background chronic interstitial disease. Stable cardiomegaly. Reviewed, dictated and finalized at location M. RCE MEDIATOR Impression: Hazy left basilar airspace disease is suggestive of pneumonia. Consider asymmet elia pulmonary edema is a potential alternative consideration. Background chronic interstitial disease. Stable cardiomegaly.
[2024-10-20 20:54] VITALS: BP 115/85; PULSE 65; RESP 23; TEMP 36.3; O2SAT 94
[2024-10-20 21:05] LABS: Glucose Point of Care 172 mg/dl (65-105)
--- OUTSIDE RECORDS SUMMARY | 2024-10-20 21:14 | XMS_ITS | Patient Health Summary ---
Author Organization [facility] Address [address] [place] [address] Care Team Providers Care Blanking Machine Operator Name Role Phone Benny Wilkes MD Primary Care Provider [phone] Note from [facility],non-owned Affiliates and Associated Physician Practices is amultiple site organization consisting of ambulatory clinics and hospital sitesin [place], [place], [place] and [place]. This disclosure is being madepursuant to the Care Everywhere program and may not contain all information available regarding this patient. Last updated 18.[facility] Allergies No known active allergies Medications * [...] 05/16/2021) Performed for PRANAY (acute kidney injury) ([facility]) * BASIC METABOLIC PANEL (CALCIUM TOTAL)(Performed 05/16/2021) Performed for PRANAY (acute kidney injury) ([facility]) * GLUCOSE - POINT OF CARE(Performed 05/16/2021) * BASIC METABOLIC PANEL (CALCIUM TOTAL)(Performed 05/16/2021) Performed for PRANAY (acute kidney injury) ([facility]) * GLUCOSE - POINT OF CARE(Performed 05/16/2021) * GLUCOSE - POINT OF CARE(Performed 05/15/2021) * B-TYPE NATRIURETIC PEPTIDE(Performed 05/15/2021) Performed for PRANAY (acute kidney injury) ([facility]) * MRI ANGIO BRAIN ARTERIAL WO [...] (STL)(Performed 04/25/2021) Performed for Diagnosis unknown * VA TEAEC W/PATCH GRF CRTD VRT SUBCLA NCK [...] Results * EVENT MONITOR (08/18/2021 1:13 PM SHELLFISH PROCESSING MACHINE TENDER) Narrative Tere Dubon CNMT - 08/18/2021 1:13 PM SHELLFISH PROCESSING MACHINE TENDER Tere Dubon CNMT 08/18/2021 1:14 PM Device [...] - 1.48 ng/dL 05/17/2021 6:09 AM CDT [facility] Blood BLOOD SPECIMEN / Unknown Venipuncture / Unknown 05/17/2021 3:33 AM CDT 05/17/2021 3:45 AM CDT Calixto Glass MD LAB - CHEMISTRY SHANELL MENDES Performing Organization Address [facility] de Phone Number [facility] [id number] [place] [address] * (ABNORMAL) TSH REFLEX FREE T4 (05/17/2021 3:33 AM CDT) Only the most recent of3 resultswithin the time period is included. Pathologist [facility] TSH 43.298(H) 0.350 - 4.940 uIU/mL 05/17/2021 4:40 AM CDT [facility] Blood BLOOD SPECIMEN / Unknown Venipuncture / Unknown 05/17/2021 3:33 AM CDT 05/17/2021 3:45 AM CDT Calixto Glass MD LAB - CHEMISTRY SHANELL MENDES Performing Organization Address [facility] de Phone Number [facility] [address] [place], [place] [id number] * (ABNORMAL) RENAL FUNCTION PANEL (05/17/2021 3:33 AM CDT) Pathologist [facility] Glucose 104 70 - 105 mg/dL 05/17/2021 4:11 AM CDT [facility] Sodium 141 136 - 145 mmol/L 05/17/2021 4:11 AM CDT [facility] Potassium 3.5 3.5 - 5.1 mmol/L 05/17/2021 4:11 AM CDT [facility] Chloride 108(H) 98 - 107 mmol/L 05/17/2021 4:11 AM CDT [facility] CO2 22(L) 23 - 31 mmol/L 05/17/2021 4:11 AM CDT [facility] Calcium 8.4 8.4 - 10.4 mg/dL 05/17/2021 4:11 AM CDT [facility] Anion Gap 11 8 - 18 mmol/L 05/17/2021 4:11 AM CDT [facility] BUN 16 9.8 - 20.1 mg/dL 05/17/2021 4:11 AM CDT [facility] Creatinine 1.10 0.57 - 1.11 mg/dL 05/17/2021 4:11 AM CDT [facility] Albumin 3.5 3.2 - 4.6 gm/dL 05/17/2021 4:11 AM CDT [facility] Phosphorus 2.2(L) 2.3 - 4.7 mg/dL 05/17/2021 4:11 AM CDT [facility] eGFR by MDRD 48 mL/min/1.7 3m2 05/17/2021 4:11 AM CDT [facility] eGFR by MDRD 58 mL/min/1.7 3m2 05/17/2021 4:11 AM CDT [facility] Blood BLOOD SPECIMEN / Unknown Venipuncture / Unknown 05/17/2021 3:33 AM CDT 05/17/2021 3:45 AM CDT Calixto Glass MD LAB - CHEMISTRY SHANELL MENDES [facility] Organization Address City/State/ZIP Co de Phone Number [facility] [address] [place] [address] * (ABNORMAL) GLUCOSE - POINT OF CARE (05/16/2021 5:09 PM CDT) Only the most recent of34 resultswithin the time period is included. Glucose WB/POC 133(H) 70 - 106 mg/dL 05/16/2021 5:28 PM CDT [facility] Specimen Type Cap Fingerstick 2020 5:28 PM CDT [facility] Blood BLOOD SPECIMEN / Unknown 05/16/2021 5:09 PM CDT 05/16/2021 5:28 PM CDT Chelsie Kevin MD LAB - POINT OF CARE ORDERABLES [facility] [address] [place] [address] * (ABNORMAL) CBC W AUTO [...] - 13.0 % 05/16/2021 12:35 PM CDT [facility] Eosinophils % 1.0 0.0 - 6.0 % 05/16/2021 12:35 PM CDT [facility] Basophils % 0.3 0.0 - 2.0 % 05/16/2021 12:35 PM CDT [facility] Immature Granulocytes 0.3 0 - 1 % 05/16/2021 12:35 PM CDT [facility] Neutrophil Absolute 4.68 2.01 - 7.14 x10E9/L 05/16/2021 12:35 PM CDT [facility] Lymphocytes Absolute 0.48(L) 1.07 - 3.94 x10E9/L 05/16/2021 12:35 PM CDT [facility] Monocytes Absolute 0.56 0.26 - 1.07 x10E9/L 05/16/2021 12:35 PM CDT [facility] Eosinophils Absolute 0.06 0 - 0.47 x10E9/L 05/16/2021 12:35 PM CDT [facility] Basophils Absolute 0.02 0 - 0.08 x10E9/L 05/16/2021 12:35 PM CDT [facility] Immature Granulocytes Absolute 0.02 0.00 - 0.06 x10E9/L 05/16/2021 12:35 PM CDT [facility] nRBC Auto 0 /100 WBC 05/16/2021 12:35 PM CDT [facility] Blood BLOOD SPECIMEN / Unknown Venipuncture / Unknown 05/16/2021 12:27 PM CDT 05/16/2021 12:31 PM CDT Rosey Palafox SCREEN DOOR MAKER-VICE SQUAD [employer]ICE OFFICER LAB - HEMATOLOG Y ORDERABLES [facility] [address] [place] [address] * (ABNORMAL) BASIC METABOLIC PANEL (CALCIUM TOTAL) (05/16/2021 12:27 PM CDT) Only the most recent of14 resultswithin the time period is included. [facility] Glucose 130(H) 70 - 105 mg/dL 05/16/2021 12:50 PM CDT [facility] Sodium 141 136 - 145 mmol/L 05/16/2021 12:50 PM CDT [facility] Potassium 3.6 3.5 - 5.1 mmol/L 05/16/2021 12:50 PM CDT [facility] Chloride 108(H) 98 - 107 mmol/L 05/16/2021 12:50 PM CDT [facility] CO2 23 23 - 31 mmol/L 05/16/2021 12:50 PM CDT [facility] Calcium 8.3(L) 8.4 - 10.4 mg/dL 05/16/2021 12:50 PM CDT [facility] Anion Gap 10 8 - 18 mmol/L 05/16/2021 12:50 PM CDT [facility] BUN 18 9.8 - 20.1 mg/dL 05/16/2021 12:50 PM CDT [facility] Creatinine 1.20(H) 0.57 - 1.11 mg/dL 05/16/2021 12:50 PM CDT [facility] eGFR by MDRD 43 mL/min/1.7 3m2 05/16/2021 12:50 PM CDT [facility] eGFR by MDRD 52 mL/min/1.7 3m2 05/16/2021 12:50 PM CDT [facility] Blood BLOOD SPECIMEN / Unknown Venipuncture / Unknown 05/16/2021 12:27 PM CDT 05/16/2021 12:31 PM CDT Rosey Palafox SCREEN DOOR MAKER-VICE [employer] OFFICER LAB - CHEMISTRY ORDERABLES [facility] [address] [place] [address] * (ABNORMAL) B-TYPE NATRIURETIC PEPTIDE (05/15/2021 12:25 PM CDT) Only the most recent of2 resultswithin the time period is included. BNP 621(H) <=100 pg/mL 05/15/2021 12:52 PM CDT [facility] Blood BLOOD SPECIMEN / Unknown Venipuncture / Unknown 05/15/2021 12:25 PM CDT 05/15/2021 12:27 PM CDT Chelsie Kevin MD LAB - CHEMISTRY SHANELL MENDES [facility] [address] [place] [address] * MRI ANGIO BRAIN ARTERIAL [...] follow-up 80-year-old female. Prior CVA TECHNIQUE: MRA [id number] of the head without contrast. 3D/MIP reconstructions [...] follow-up 80-year-old female. Prior CVA TECHNIQUE: MRA [id number] of the head without contrast. 3D/MIP reconstructions [...] <0.010 <0.038 ng/mL 05/14/2021 10:18 PM CDT [facility] Blood BLOOD SPECIMEN / Unknown Venipuncture / Unknown 05/14/2021 9:54 PM CDT 05/14/2021 9:56 PM CDT Emerita Dutta MD LAB - CHEMISTRY SHANELL MENDES [facility] [address] [place] [address] * XR CHEST 1VW PORTABLE (05/14/2021 2:35 [...] LAB - CHEMISTRY ORDERABLES Performing Organization Address [facility] Co de Phone Number [facility] [id number] [place] [address] * TYPE + SCREEN PANEL (05/14/2021 2:30 PM CDT) Only the most recent of2 resultswithin the time period is included. ABO Rh A POS 05/14/2021 3:11 PM CDT [facility] Comment:History checked. Antibody Screen NEG 3:11 PM CDT [facility] Blood Bank BLOOD SPECIMEN / Unknown Venipuncture / Unknown 05/14/2021 2:30 PM CDT 05/14/2021 2:30 PM CDT Mindy Hicks PA-C LAB - BLOOD BANK ORDERABLES Performing Organization Address [facility] de Phone Number [facility] [address] [place] [address] * (ABNORMAL) PTT (05/14/2021 2:30 PM CDT) Only the most recent of2 resultswithin the time period is included. PTT 42.4(H) 23.0 - 38.4 sec 05/14/2021 2:50 PM CDT [facility] Blood BLOOD SPECIMEN / Unknown Venipuncture / Unknown 05/14/2021 2:30 PM CDT 05/14/2021 2:30 PM CDT Narrative [facility] - 05/14/2021 2:50 PM CDT Heparin Therapeutic Range for PTT: 71.0 - 109.0 seconds. Mindy Hicks PA-C LAB - COAGULATIO N ORDERABLES Performing Organization Address [facility] Co de Phone Number [facility] [id number] [place] [address] * (ABNORMAL) PT-INR (05/14/2021 2:30 PM CDT) Only the most recent of3 resultswithin the time period is included. PT 18.5(H) 12.1 - 14.8 sec 05/14/2021 2:49 PM CDT [facility] INR 1.6(H) 0.9 - 1.1 05/14/2021 2:49 PM CDT [facility] Blood BLOOD SPECIMEN / Unknown Venipuncture / Unknown 05/14/2021 2:30 PM CDT 05/14/2021 2:30 PM CDT Narrative [facility] - 05/14/2021 2:49 PM CDT Conventional Warfarin Anticoagulant Therapy: INR Reference Range: 2.0-3.0 Intensive Warfarin Anticoagulant Therapy: INR Reference Range: 2.5-3.5 Mindy Hicks PA-C LAB - COAGULATIO N ORDERABLES Performing Organization Address City/[facility] Co de Phone Number [facility] [address] [place], [place] [phone] * (ABNORMAL) CREATININE - POCT INTERFACED (05/14/2021 2:03 PM CDT) Creatinine POCT 2.30(H) 0.70 - 1.20 mg/dL 05/14/2021 2:15 PM CDT [facility] Blood BLOOD SPECIMEN / Unknown 05/14/2021 2:03 PM CDT 05/14/2021 2:15 PM CDT Emerita Dutta MD LAB - POINT OF CARE ORDERABLES Performing Organization Address City/[facility] Co de Phone Number [facility] [address] [place] [address] * CT BRAIN - Stroke (05/14/2021 1:59 [...] (Bezet) 382 ms [facility] MUSE Calculated R [place] -8 degrees [facility] MUSE Calculated T [place] 166 degrees [facility] MUSE Interpretation EKG Atrial fibrillation Inferior infarct (cited on or before 23-FEB-2012) Abnormal ECG When compared with ECG of 05-OCT-2014 11:08, Atrial fibrillation has replaced Sinus rhythm Confirmed by ELOY VILLASEÑOR MD ([id number]) on 05/16/2021 9:18:45 PM [facility] MUSE 05/14/2021 1:46 PM CDT 05/16/2021 9:18 PM CDT Mindy Hicks PA-C ECG ORDERABLES Performing Organization Address City/[facility] Co de Phone Number [facility] * CARDIAC EKG ORDER (05/11/2021 5:20 PM CDT) Only the most recent of3 resultswithin the time period is included. Narrative 05/11/2021 5:20 PM CDT Ordered by an unspecified provider. Scanned Document CARDIAC SERVICES ORD ERABLES * (ABNORMAL) VITAMIN D 25-HYDROXY (05/08/2021 5:00 AM CDT) Vitamin D, 25 Hydroxy 24.8(L) 30 - 100 ng/mL 05/08/2021 7:35 AM CDT [facility] Blood BLOOD SPECIMEN / Unknown 05/08/2021 5:00 AM CDT 05/08/2021 6:45 AM CDT Narrative [facility] - 05/08/2021 7:35 AM CDT Vitamin D Status: Deficiency <20 ng/mL Insufficiency 20-30 ng/mL Sufficiency 30-100 ng/mL Toxicity >100 ng/mL Adriel Monson MD LAB - CHEMISTRY SHANELL MENDES Performing Organization Address [facility] Co de Phone Number [facility] [address] [place] [address] * VITAMIN B12 (05/08/2021 5:00 AM CDT) Vitamin B12 305 213 - 816 pg/mL 05/08/2021 7:45 AM CDT [facility] Blood BLOOD SPECIMEN / Unknown 05/08/2021 5:00 AM CDT 05/08/2021 6:46 AM CDT Adriel Monson MD LAB - CHEMISTRY SHANELL MENDES Performing Organization Address [facility] Co de Phone Number [facility] [address] [place] [address] * (ABNORMAL) TSH (05/08/2021 5:00 AM CDT) Only the most recent of3 resultswithin the time period is included. [facility] TSH 12.2092(H) 0.35 - 4.94 uIU/mL 05/08/2021 7:44 AM CDT [facility] Blood BLOOD SPECIMEN / Unknown 05/08/2021 5:00 AM CDT 05/08/2021 6:46 AM CDT Adriel Monson MD LAB - CHEMISTRY SHANELL MENDES [facility] [address] [place] [address] * (ABNORMAL) CBC W/O DIFFERENTIAL (05/03/2021 4:00 AM CDT) [facility] WBC 7.0 4.4 - 10.7 x10E9/L 05/03/2021 6:36 AM CDT [facility] RBC 3.34(L) 3.80 - 5.20 x10E12/L 05/03/2021 6:36 AM CDT [facility] Hemoglobin 9.7(L) 12.0 - 15.6 gm/dL 05/03/2021 6:36 AM CDT [facility] Hematocrit 30.0(L) 35.9 - 45.5 % 05/03/2021 6:36 AM CDT [facility] MCV 89.8 80.7 - 98.3 fl 05/03/2021 6:36 AM CDT [facility] MCH 29.0 26.7 - 34.0 pg 05/03/2021 6:36 AM CDT [facility] MCHC 32.3 30.8 - 35.9 gm/dL 05/03/2021 6:36 AM CDT [facility] Platelet Count 267 153 - 416 x10E9/L 05/03/2021 6:36 AM CDT [facility] RDW-CV 13.2 12.1 - 14.9 % 05/03/2021 6:36 AM CDT [facility] MPV 9.4 9.4 - 12.9 fl 05/03/2021 6:36 AM CDT [facility] Blood BLOOD SPECIMEN / Unknown 05/03/2021 4:00 AM CDT 05/03/2021 6:20 AM CDT Greer Pineda MD LAB - HEMATOLOGY OR DERABLES Performing Organization Address City/State/[facility] Co de Phone Number [facility] [address] [place] [address] * EMG (04/29/2021 9:29 PM [...] Yellow Straw, Yellow 04/26/2021 9:44 AM CDT [facility] Clarity UA Clear Clear 04/26/2021 9:44 AM CDT [facility] Glucose UA Negative Negative 04/26/2021 9:44 AM CDT [facility] Bilirubin UA Negative Negative 04/26/2021 9:44 AM CDT [facility] Ketone UA Trace(A) Negative 04/26/2021 9:44 AM CDT [facility] Specific Thayer UA 1.014 1.005 - 1.030 04/26/2021 9:44 AM CDT [facility] Blood UA Negative Negative 04/26/2021 9:44 AM CDT [facility] pH UA 6.0 5.0 - 8.0 pH 04/26/2021 9:44 AM CDT [facility] Protein UA 1+(A) Negative 04/26/2021 9:44 AM CDT [facility] Urobilinogen UA Negative Negative mg/dL 04/26/2021 9:44 AM CDT [facility] Nitrite UA Negative Negative 04/26/2021 9:44 AM CDT [facility] Leukocyte UA Negative Negative 04/26/2021 9:44 AM CDT [facility] Urine Microscopy Urine microscopy to follow 04/26/2021 9:44 AM CDT [facility] Urine URINE SPECIMEN OBTAINED BY CLEAN CATCH PROCEDURE / Unknown Collection / Unknown 04/26/2021 9:30 AM CDT 04/26/2021 9:33 AM CDT Narrative [facility] - 04/26/2021 9:44 AM CDT Chelsie Kevin MD LAB - URINALYSIS ORD ERABLES [facility] [address] [place] [address] * URINE MICROSCOPIC ONLY (04/26/2021 9:30 AM CDT) RBC UA 0-2 None Seen, 0-2, 3-5 # /hpf 04/26/2021 9:47 AM CDT [facility] WBC UA 0-5 None Seen, 0-5 # /hpf 04/26/2021 9:47 AM CDT [facility] Bacteria UA None Seen None Seen 04/26/2021 9:47 AM CDT [facility] Squamous Epithelial Cells None Seen None Seen, 0-2, 3-5 /hpf 04/26/2021 9:47 AM CDT [facility] Urine URINE SPECIMEN OBTAINED BY CLEAN CATCH PROCEDURE / Unknown Collection / Unknown 04/26/2021 9:30 AM CDT 04/26/2021 9:33 AM CDT Narrative [facility] - 04/26/2021 9:47 AM CDT Chelsie Kevin MD LAB - URINALYSIS ORD ERABLES [facility] [address] [place] [address] * ETT LINE PERFORMABLE (04/25/2021 3:48 PM CDT) Narrative Kyara Barreto APRN-CRNA - 04/25/2021 3:48 PM CDT Kyara Barreto APRN-CRNA 04/25/2021 3:49 PM Endotracheal Tube Placement: Patient Location: OR. Intubation Event Date/Time: 04/25/2021 2:40 PM Procedure: intubation ([id number]). Procedure Section: Sedation: under general anesthesia. Indications [...] Placement (04/25/2021 3:46 PM CDT) Narrative EstevanKyara, JOHNNIECONTINUOUS PROCESS COFFEE ROASTER - 04/25/2021 3:46 PM CDT [place], MABLE Miller 04/25/2021 3:48 PM Arterial Line Placement Procedure Note Patient Location: OR. Procedure: Arterial Line ([id number]). Procedure Section Indications: other - please comment [...] CDT) Case Report Surgical Pathology Report Case: [id number] Authorizing Provider: Cem Lo MD Collected: 04/25/2021 03:17 PM Ordering Location: [address] NEURO/NEUROSRG Received: 04/26/2021 06:54 AM Pathologist: Joyce Johnston MD Specimen: Plaque, RIGHT CAROTID PLAQUE 04/27/2021 4:18 PM CDT [facility] Final Diagnosis Right carotid artery plaque, endarterectomy: -- Calcific atherosclerotic plaque 04/27/2021 4:18 PM CDT [facility] Gross Description Received in formalin in a single container labeled Moriah Reed, right carotid plaque, is a 2.2 x 1.1 x 0.5 cm yellow-javier fragment of tissue with calcifications. The specimen is entirely submitted in cassette A1 for decalcification. CH/zoila 04/27/2021 4:18 PM CDT [facility] Microscopic Description Histologic evaluation supports the diagnosis. 04/27/2021 4:18 PM CDT [facility] Disclaimer All histochemical and/or immunohistochemical [...] interpreted with caution. 04/27/2021 4:18 PM CDT [facility] Embedded Images 04/27/2021 4:18 PM CDT [facility] Pathology/Cytolo gy PLAQUE / Unknown 04/25/2021 3:17 PM CDT 04/26/2021 6:54 AM CDT Cem Lo MD LAB - PATHOLOGY/CYTO LOGY ORDERABLES [facility] [address] [place] [address] * IR CAROTID CEREBRAL ANGIOGRAM [...] - 5.6 % 04/24/2021 4:29 AM CDT [facility] Estimated Average Glucose 166 mg/dL 04/24/2021 4:29 AM CDT [facility] Blood BLOOD SPECIMEN / Unknown Venipuncture / Unknown 04/24/2021 3:41 AM CDT 04/24/2021 3:56 AM CDT [facility] - 04/24/2021 4:29 AM CDT The following cutoff levels are recommended by [place] [employer]. A1c > 6.5% : considered [...] Organization Address City/State/ZIP Co de Phone Number [facility] [address] [place] [address] * (ABNORMAL) LIPID PROFILE (04/24/2021 3:41 AM CDT) [facility] Cholesterol 167 <200 mg/dL 04/24/2021 4:48 AM CDT [facility] Triglycerides 131 <150 mg/dL 04/24/2021 4:48 AM CDT [facility] HDL Cholesterol 37(L) >40 mg/dL [...] Organization Address City/State/ZIP Co de Phone Number [facility] [address] [place] [address] * CT ANGIO HEAD NECK STROKE (04/23/2021 [...] CDT PROCEDURE TITLE: CT ANGIO BRAIN NECK STROKE*[id number] HISTORY: Cerebral infarction, unspecified RELEVANT COMPARISON: Head CT done the same day Additional history (none relevant if blank): Left-sided weakness TECHNIQUE: Helical CT angiography acquisition of head Head and Neck with intravenous iodinated contrast using 80 cc's of Isovue 370. Arterial dissection protocol. 3-D post processing of the raw data, specifically MIP, performed with image capture by the technologist. All CT scans at [facility] are performed using dose optimization techniques as [...] 04/23/2021 PROCEDURE TITLE: CT ANGIO BRAIN NECK STROKE*[id number] HISTORY: Cerebral infarction, unspecified RELEVANT COMPARISON: Head CT done the same day Additional history (none relevant if blank): Left-sided weakness TECHNIQUE: Helical CT angiography acquisition of head Head and Neck with intravenous iodinated contrast using 80 cc's of Isovue 370. Arterial dissection protocol. 3-D post processing of the raw data, specifically MIP, performed with image capture by the technologist. All CT scans at [facility] are performed using dose optimization techniques as [...] or life-threatening deterioration of the following conditions: OIL SPECULATOR failure or compromise Critical care was time [...] 8:03 AM CDT PROCEDURE TITLE: XR CHEST 2VW*[id number] HISTORY: Weakness RELEVANT COMPARISON: March 09 Additional [...] MD - 03/14/2021 PROCEDURE TITLE: XR CHEST 2VW*[id number] HISTORY: Weakness RELEVANT COMPARISON: March 09 Additional [...] detected Not detected 03/14/2021 1:25 PM CDT [facility] Microbiology SPECIMEN FROM NASOPHARYNGEAL STRUCTURE / Unknown Collection / Unknown 03/13/2021 8:29 PM CDT 03/13/2021 9:41 PM CDT Narrative [facility] - 03/14/2021 1:25 PM CDT This nucleic acid amplification assay performance was validated by [facility]. This test has been [...] Denis DO LAB - MICROBIOLOGY O LUISANA [facility] [address] [place] [address], [facility] [phone] * MAGNESIUM BLOOD (03/13/2021 8:29 PM CDT) Only the most recent of5 resultswithin the time period is included. Magnesium 2.0 1.6 - 2.6 mg/dL 03/13/2021 9:01 PM CDT [facility] Blood BLOOD SPECIMEN / Unknown Venipuncture / Unknown 03/13/2021 8:29 PM CDT 03/13/2021 8:33 PM CDT Wily Denis DO LAB - CHEMISTRY SHANELL MENDES [facility] [address] [place] [id number] * (ABNORMAL) SALICYLATE LEVEL BLOOD (03/13/2021 8:29 PM CDT) Salicylate <5.0(L) 15.0 - 30.0 mg/dL 03/13/2021 9:01 PM CDT [facility] Blood BLOOD SPECIMEN / Unknown Venipuncture / Unknown 03/13/2021 8:29 PM CDT 03/13/2021 8:33 PM CDT Wily Denis DO LAB - CHEMISTRY SHANELL MENDES Performing Organization Address [facility] Co de Phone Number [facility] [address] [place] [address] * (ABNORMAL) ACETAMINOPHEN LEVEL (03/13/2021 8:29 PM CDT) Acetaminophen <3.0(L) 10.0 - 30.0 ug/mL 03/13/2021 9:01 PM CDT [facility] Blood BLOOD SPECIMEN / Unknown Venipuncture / Unknown 03/13/2021 8:29 PM CDT 03/13/2021 8:33 PM CDT Narrative [facility] - 03/13/2021 9:01 PM CDT [facility] [...] may alter the peak level. Contact the [facility] at or reserved for healthcare professionals to assist you in evaluating potentially toxic acetaminophen levels. Wily Hernandezjessica LAB - CHEMISTRY SHANELL MENDES Performing Organization Address [facility] Co de Phone Number [facility] [address] [place] [address] * PROCALCITONIN LEVEL (03/10/2021 6:54 AM CDT) Procalcitonin 0.09 <0.10 ng/mL 03/10/2021 12:13 PM CDT [facility] Blood BLOOD SPECIMEN / Unknown Lab Venipuncture / Unknown 03/10/2021 6:54 AM CDT 03/10/2021 6:58 AM CDT Narrative [facility] - 03/10/2021 12:13 PM CDT The [...] Change in Procalcitonin Calculator is available at [email or web address] If clinical picture has not improved and PCT remains high, reevaluate and consider treatment failure or other causes. Bill Lane MD LAB - CHEMI STRY ORDERABLES [facility] [address] [place] [id number] * ECHOCARDIOGRAM 2D WITH DOPPLER (03/09/2021 3:45 PM CDT) 03/09/2021 3:45 PM CDT Narrative Procedure Note Calixto Ledezma MD - 03/10/[address] [address] Echocardiography Examination Transthoracic Name: MORIAH REED [facility]#: MR#: [id number] Admission Number: [id number] Study Date: 03/10/2021 Study Time: 11:55 AM Date Of : 1940 Age: 80 years Height: ( ) Weight: ( ) BSA: Gender: Female Blood Pressure: / Heart Rate: Exam Details Procedure Ordered: ECHOCARDIOGRAM 2D W/DOPPLER Procedure Components: Complete 2D, M-mode, complete spectral Doppler, color Doppler Procedure Status: Routine study Image Quality: Adequate Facility Location: [facility] Indication: Murmur, Atrial Fibrillation Procedure Post Anesthesia Care Unit Nurse: Alireza Victor RDCS Ordering Provider: SAMANTHA VAUGHN Reading Physician: Calixto Ledezma MD Reading Group: [facility] Conclusions Left Ventricle: Left ventricle is [...] 0.06 m/s Function Mitral Valve MV Dec Rincon 5.22 m/s Pulmonic Valve PV PGmax 2 [...] from another provider in my specialty: no aLi Vázquze DO PROCEDURE/MINOR SURG ICAL ORDERABLES * MAMMO [...] if suspicious findings are present clinically. An [employer] certified facility. [facility] utilize KeyCAPTCHA as a reminder system to notify patients of their next recommended mammograms. *Reading Radiologist: Octavio Francisco on 06/02/2020 at 1:33 PM Sher Medina MD MAMMO ORDERABLES * POTASSIUM BLOOD (10/06/2014 4:48 PM SHELLFISH PROCESSING MACHINE TENDER) Potassium 4.0 3.5 - 5.1 mmol/L 10/06/2014 5:05 PM SHELLFISH PROCESSING MACHINE TENDER [facility] Blood BLOOD SPECIMEN / Unknown 10/06/2014 4:48 PM SHELLFISH PROCESSING MACHINE TENDER 10/06/2014 4:53 PM SHELLFISH PROCESSING MACHINE TENDER Christy James MD LAB - CHEMISTRY SHANELL Henderson Organization Address City/State/ZIP Co de Phone Number [facility] [address] [place] [address] * (ABNORMAL) URINALYSIS ROUTINE W/REFLEX TO CULTURE (10/06/2014 2:26 AM SHELLFISH PROCESSING MACHINE TENDER) Color UA Yellow Straw, Yellow, Dark Yellow 10/06/2014 2:56 AM [facility] Clarity UA Clear 10/06/2014 2:56 AM [facility] Specific Thayer UA >1.030(H) 1.005 - 1.030 10/06/2014 2:56 AM [facility] pH UA 7.5 5.0 - 8.0 pH 10/06/2014 2:56 AM [facility] Protein UA 2+(A) Negative 10/06/2014 2:56 AM [facility] Blood UA 3+(A) Negative 10/06/2014 2:56 AM [facility] Leukocyte UA Trace(A) Negative 10/06/2014 2:56 AM [facility] Nitrite UA Negative Negative 10/06/2014 2:56 AM [facility] Glucose UA Trace(A) Negative 10/06/2014 2:56 AM [facility] Ketone UA Trace(A) Negative 10/06/2014 2:56 AM [facility] Bilirubin UA Negative Negative 10/06/2014 2:56 AM [facility] Urobilinogen UA 0.2 0.1 - 1.0 EU/dL 10/06/2014 2:56 AM [facility] WBC UA Auto 20-50(A) 0-2, 2-5 #/hpf 10/06/2014 2:56 AM [facility] RBC UA Auto >100(A) 0-2, 2-5 #/hpf 10/06/2014 2:56 AM [facility] Epithelial Cell UA Auto 0-2 0-2, 2-5 #/hpf 10/06/2014 2:56 AM [facility] Bacteria UA Auto None seen None seen 10/06/2014 2:56 AM [facility] Hyaline Casts UA Auto 2-5(A) 0 - 2 #/lpf 10/06/2014 2:56 AM [facility] Reflex Status Culture to follow 10/06/2014 2:56 AM SHELLFISH PROCESSING MACHINE TENDER [facility] Urine URINE SPECIMEN OBTAINED BY CLEAN CATCH PROCEDURE / Unknown 10/06/2014 2:26 AM SHELLFISH PROCESSING MACHINE TENDER 10/06/2014 2:37 AM SHELLFISH PROCESSING MACHINE TENDER Christy James MD LAB - URINALYSIS ORD ERABLES Performing Organization Address [facility] de Phone Number [facility] [address] [place] [address] * CULTURE URINE (10/06/2014 2:26 AM SHELLFISH PROCESSING MACHINE TENDER) Culture No Growth (<1,000 CFU/mL) KENNA 10/08/2014 4:16 AM SHELLFISH PROCESSING MACHINE TENDER [facility] Urine URINE SPECIMEN OBTAINED BY CLEAN CATCH PROCEDURE / Unknown 10/06/2014 2:26 AM SHELLFISH PROCESSING MACHINE TENDER 10/06/2014 2:37 AM SHELLFISH PROCESSING MACHINE TENDER Christy James MD LAB - MICROBIOLOGY O RDERABLES Performing Organization Address [facility] de Phone Number [facility] [address] [place] [address], [facility] * PHOSPHORUS BLOOD (10/06/2014 2:25 AM SHELLFISH PROCESSING MACHINE TENDER) Phosphorus 3.1 2.5 - 4.9 mg/dL 10/06/2014 3:07 AM SHELLFISH PROCESSING MACHINE TENDER [facility] Blood BLOOD SPECIMEN / Unknown 10/06/2014 2:25 AM SHELLFISH PROCESSING MACHINE TENDER 10/06/2014 2:37 AM SHELLFISH PROCESSING MACHINE TENDER Raysa Segundo APRN-VICE [employer] LAB - CHEMISTRY ORDERABLES Performing Organization Address [facility] de Phone Number [facility] [address] [place], [place] [id number] * CULTURE VRE (10/05/2014 9:18 PM SHELLFISH PROCESSING MACHINE TENDER) Culture Negative for VRE KENNA 10/07/2014 10:22 AM [facility] Stool RECTAL SWAB / Unknown 10/05/2014 9:18 PM SHELLFISH PROCESSING MACHINE TENDER 10/05/2014 9:22 PM SHELLFISH PROCESSING MACHINE TENDER Christy James MD LAB - MICROBIOLOGY O RDERAANASTASIA Performing Organization Address [facility] Co de Phone Number [facility] [address] [place] [address], [facility] * CULTURE MRSA (10/05/2014 9:18 PM SHELLFISH PROCESSING MACHINE TENDER) Culture Negative for MRSA KENNA 10/08/2014 11:20 AM SHELLFISH PROCESSING MACHINE TENDER [facility] Microbiology SPECIMEN FROM NASAL FOSSAE / Unknown 10/05/2014 9:18 PM SHELLFISH PROCESSING MACHINE TENDER 10/05/2014 9:22 PM SHELLFISH PROCESSING MACHINE TENDER Christy James MD LAB - MICROBIOLOGY O RDERABLES Performing Organization Address [facility] Co de Phone Number [facility] [address] [place] [address], [facility] * (ABNORMAL) ACT - POINT OF CARE (10/05/2014 4:04 PM SHELLFISH PROCESSING MACHINE TENDER) Only the most recent of3 resultswithin the time period is included. ACT POCT 249(A) 125 - 187 Seconds [facility] POCT TESTING QC Verified Yes Yes [facility] POC T TESTING Blood specimen (specimen) BLOOD SPECIMEN / Unknown 10/05/2014 4:04 PM SHELLFISH PROCESSING MACHINE TENDER Yesy Sheriff MD LAB - POINT OF CARE ORDERABLES Performing Organization Address [facility] Co de Phone Number [facility] POCT TESTING [address] [place] [address], [facility] * CT ABDOMEN AND PELVIS WITH IV CONTRAST (10/05/2014 1:45 PM SHELLFISH PROCESSING MACHINE TENDER) Anatomical Region Laterality Modality Abdomen, Pelvis Computed Tomogra phy 10/05/2014 2:03 PM SHELLFISH PROCESSING MACHINE TENDER Impressions 10/05/2014 2:06 PM SHELLFISH PROCESSING MACHINE TENDER CT of the abdomen and pelvis demonstrates no focal inflammatory process or other acute appearing abnormality. This examination was transcribed using the Noonswoon voice recognition system without human clerical assistant. In an effort to expedite patient care, this report has not been adjusted for typographical, grammatical, and syntax by a trained medical laboratory specialist. Narrative 10/05/2014 2:06 PM SHELLFISH PROCESSING MACHINE TENDER CT Abdomen with Contrast Indication: Abdominal pain [...] abnormality. This examination was transcribed using the Noonswoon voice recognition system without human clerical assistant. In an effort to expedite patient care, this report has not been adjusted for typographical, grammatical, and syntax by a trained medical laboratory specialist. Tom De Anda MD CT ORDERABLES * CT CHEST PE (10/05/2014 1:43 PM SHELLFISH PROCESSING MACHINE TENDER) Anatomical Region Laterality Modality Chest Computed Tomogra phy 10/05/2014 2:06 PM SHELLFISH PROCESSING MACHINE TENDER Impressions 10/05/2014 2:08 PM SHELLFISH PROCESSING MACHINE TENDER No pulmonary embolus is identified. This examination was transcribed using the Noonswoon voice recognition system without human clerical assistant. In an effort to expedite patient care, this report has not been adjusted for typographical, grammatical, and syntax by a trained medical laboratory specialist. Narrative 10/05/2014 2:08 PM SHELLFISH PROCESSING MACHINE TENDER CT Chest with Contrast INDICATION:Shortness of breath [...] identified. This examination was transcribed using the Noonswoon voice recognition system without human clerical assistant. In an effort to expedite patient care, this report has not been adjusted for typographical, grammatical, and syntax by a trained medical laboratory specialist. Tom De Anda MD CT ORDERABLES * CARDIAC CATH PROCEDURE (10/05/2014 12:00 PM SHELLFISH PROCESSING MACHINE TENDER) 10/05/2014 12:0 0 PM SHELLFISH PROCESSING MACHINE TENDER Narrative Transcriptions Yesy Sheriff MD - 10/06/2014 12:22 PM CST [facility] CARDIAC CATHETERIZATION PATIENT: MORIAH REED MR#: [id number] ADMIT DATE: 10/05/2014 CSN: [id number] PROCEDURE DATE: 10/05/2014 :1940 PHYSICIAN: Yesy Sheriff MD ROOM: REFERRING PHYSICIAN: PROCEDURE: Drug-eluting stent deployment in the 1st diagonal branch. ARTERIAL SHEATH: A 6-Nepalese short guiding catheter, 6-Nepalese CLS 3.5guiding catheter. GUIDEWIRE: A 0.014 Whisper. [...] Femoral arterial sheath was removed, and a 6-Nepalese Angio-Seal devicedeployed with good hemostasis. No femoral hematoma. Pedal pulses intact.Patient returned to the holding area in stable condition. COMPLICATIONS: None. CONCLUSIONS: Successful drug-eluting stent deployment in the 1stdiagonal branch. YESY HSERIFF MD SIB/MODL #: [id number] cc: Sher Medina MD MEDICAL/SURGICAL CARDIAC CATHETERIZATION - DP Yesy Sheriff MD CARDIAC SERVICES ORD ERABLES * CARDIAC CATH CONSULT (for Epic Reporting) (10/05/2014 12:00 PM SHELLFISH PROCESSING MACHINE TENDER) 10/05/2014 12:0 0 PM SHELLFISH PROCESSING MACHINE TENDER Narrative Transcriptions Yesy Sheriff MD - 10/06/2014 12:19 PM CST [facility] CARDIAC CATHETERIZATION PATIENT: MORIAH REED MR#: [id number] ADMIT DATE: 10/05/2014 CSN: [id number] PROCEDURE DATE: 10/05/2014 :1940 PHYSICIAN: Yesy Sheriff MD ROOM: [place] [address] REFERRING PHYSICIAN: TOM DE ANDA PROCEDURE: Left heart catheterization. Left ventriculography.Selective coronary arteriography. CLINICAL SUMMARY: This is a 73-year-old white female who presents withchest tightness, abnormal ECG, and mild elevation of troponin. Coronaryangiography was undertaken. PROCEDURE: Hay[place]. SITE OF ENTRY: Right femoral artery. LOCAL ANESTHESIA: One percent Xylocaine. PREMEDICATIONS: Versed 2 mg IV, fentanyl 50 mcg IV. CATHETERS: A 5-Nepalese arterial sheath, 5-Nepalese pigtail, 5-Nepalese JL4,5- Nepalese 3DRC. PROCEDURE: The patient was brought to [...] None. HEMODYNAMICS: Preangiography pressures: Aorta 181/99, left [id number]/9. LEFT VENTRICULOGRAM: Left ventricular systolic and diastolic [...] be undertaken. YESY SHERIFF MD SIB/MODL #: [id number] cc: Sher Medina MD MEDICAL/SURGICAL CARDIAC CATHETERIZATION - DP Yesy Sheriff MD ECHO ORDERABLES Performing Organization Address City/[facility] Co de Phone Number [facility] * LIPASE BLOOD (10/05/2014 11:40 AM SHELLFISH PROCESSING MACHINE TENDER) Lipase 263 73 - 393 U/L 10/05/2014 12:07 PM SHELLFISH PROCESSING MACHINE TENDER [facility] Blood BLOOD SPECIMEN / Unknown 10/05/2014 11:40 AM SHELLFISH PROCESSING MACHINE TENDER 10/05/2014 11:43 AM SHELLFISH PROCESSING MACHINE TENDER Tom De Anda MD LAB - CHEMISTRY SHANELL MENDES Performing Organization Address [facility]/ZIP Co de Phone Number [facility] [address] [place] [id number] * ED SPLINT APPLICATION (06/28/2014 3:32 PM CDT) Narrative Tom De Anda MD - 06/28/2014 3:32 PM CDT Tom De Anda MD 06/28/2014 3:32 PM Provider contact with the patient: 06/28/2014 10:35 Moriah Reed [id number] [facility] EMERGENCY DEPARTMENT History Chief Complaint Patient presents [...] patient to follow-[place]: [place] [address] [facility] [address] [facility] [address] Call in 1 day Sean Villareal DPM [address] [facility] [address] [facility] [address] Call in 1 day Sher Medina [...] ARUP Bill Only 04/09/2014 8:59 PM CDT [employer] ([facility]) Blood specimen (specimen) BLOOD SPECIMEN / Unknown Lab Venipuncture / Unknown 04/08/2014 11:59 AM CDT 04/08/2014 12:43 PM CDT Jefry Evans MD [facility] [employer] [facility]) [address] [place] [address], [facility] * (ABNORMAL) THYROGLOBULIN (04/08/2014 11:59 AM CDT) Only the most recent of2 resultswithin the time period is included. Thyroglobulin Antibody <0.9 0.0 - 4.0 IU/mL 04/09/2014 7:59 PM CDT [facility] ([facility]) Comment: INTERPRETIVE INFORMATION: Thyroglobulin Antibody A value of 4.0 IU/mL or less indicates a negative result for thyroglobulin antibodies. The Thyroglobulin Antibody assay is being performed using the Gaby Charo Access DxI method. Thyroglobulin 0.4(L) 1.3 - 31.8 ng/mL 04/09/2014 7:59 PM CDT [facility] ([facility]) Comment: INTERPRETIVE INFORMATION: Thyroglobulin, Serum or Plasma Specimens negative for thyroglobulin antibodies (TgAb) are tested for thyroglobulin (Tg) by chemiluminescent immunoassay (RHINA) using the Agby Charo Access DxI method. Specimens with TgAb [...] - 31.8 ng/mL 04/09/2014 7:59 PM CDT [facility] ([facility]) Comment: INTERPRETIVE INFORMATION: Thyroglobulin by LC-MS/MS, Serum/Plasma Lower limit of detection for Thyroglobulin by LC-MS/MS is 0.5 ng/mL. Test developed and characteristics determined by [employer]. See Compliance Statement B: [email or web address] Blood specimen (specimen) BLOOD SPECIMEN / Unknown Lab Venipuncture / Unknown 04/08/2014 11:59 AM CDT 04/08/2014 12:43 PM CDT Jefry Evans MD LAB - CHEMISTRY ORDERABLES Performing Organization Address [facility] Phone Number [facility] ([facility]) [address] [place] [address] * THYROGLOBULIN ANTIBODY (04/08/2014 11:59 AM CDT) Only the most recent of2 resultswithin the time period is included. Thyroglobulin Antibody <0.9 0.0 - 4.0 IU/mL 04/09/2014 7:59 PM CDT [facility] ([facility]) Comment: INTERPRETIVE INFORMATION: Thyroglobulin Antibody A value of 4.0 IU/mL or less indicates a negative result for thyroglobulin antibodies. The Thyroglobulin Antibody assay is being performed using the Gaby [employer] Access DxI method. Blood specimen (specimen) BLOOD SPECIMEN / Unknown Lab Venipuncture / Unknown 04/08/2014 11:59 AM CDT 04/08/2014 12:44 PM CDT Jefry Evans MD LAB - CHEMISTRY ORDERABLES Performing Organization Address [facility] Phone Number [facility] ([facility]) [address] [place] [address] * LAB RESULTS ORDER (11/01/2012 12:26 PM SHELLFISH PROCESSING MACHINE TENDER) Narrative 11/01/2012 12:26 PM SHELLFISH PROCESSING MACHINE TENDER Procedure Note Document, Scanned - 11/01/2012 12:26 PM CST Scanned Document LAB - THERAPEUTIC DR BEV MONITORING ORDERABLES * (ABNORMAL) THYROGLOBULIN PANEL (10/18/2012 9:21 AM SHELLFISH PROCESSING MACHINE TENDER) Only the most recent of2 resultswithin the time period is included. Thyroglobulin Antibody <0.9 0.0 - 4.0 IU/mL [facility] Thyroglobulin 0.4(L) 1.3 - 31.8 ng/mL [facility] Comment Ref Lab [facility] Comment: Comments and Normal Ranges for Component Thyroglobulin Ab(IU/mL) INTERPRETIVE INFORMATION/ Thyroglobulin Antibody A value of 4.0 IU/mL or less indicates a negative result for thyroglobulin antibodies. The Thyroglobulin Antibody assay is being performed using the [employer] Direct Access DxI method. Comments and Normal Ranges for Component Thyroglobulin(ng/mL) INTERPRETIVE INFORMATION/ Thyroglobulin, Serum or Plasma Specimens negative for thyroglobulin antibodies (TgAb) are tested for thyroglobulin (Tg) by chemiluminescent immunoassay (RHINA) using the Gaby [place] Access (R) DxI method. Specimens with TgAb [...] BLOOD SPECIMEN / Unknown 10/18/2012 9:21 AM SHELLFISH PROCESSING MACHINE TENDER 10/18/2012 9:36 AM SHELLFISH PROCESSING MACHINE TENDER Narrative [facility] - 10/19/2012 10:28 AM SHELLFISH PROCESSING MACHINE TENDER Performed By [address] [address] Jefry Evans MD LAB - CHEMISTRY ORDERABLES [facility] [address] [place] [address] * NM THYROID CA METS SCAN WHOLE BODY (10/16/2012 1:38 PM SHELLFISH PROCESSING MACHINE TENDER) Only the most recent of2 resultswithin the time period is included. Anatomical Region Laterality Modality Chest Nuclear Medicine 10/21/2012 9:10 AM SHELLFISH PROCESSING MACHINE TENDER Impressions 10/21/2012 9:22 AM SHELLFISH PROCESSING MACHINE TENDER Unable to diagnose metastatic disease at this time. The intensity of uptake in the floor of the mouth and at the base of the neck has decreased since the post therapy images of April 02, 2012. Narrative 10/21/2012 9:22 AM SHELLFISH PROCESSING MACHINE TENDER EXAMINATION: Nuclear medicine thyroid carcinoma metastatic whole [...] PM CDT Toi Farley 02/23/2012 8:42 PM Field Supervisor [employer] Production visited this pt before end of shift - Pt sound asleep when Field Supervisor [employer] Production came to visit. Rev. Toi Farley Procedure Note Toi Farley - 02/23/2012 8:41 PM CDT Field Supervisor [employer] Production visited this pt before end of shift - Pt sound asleep whenChaplain came to visit. Rev. Toi Farley Rob Burton MD INPATIENT ANCILLARY CONSULT * GROSS + MICRO EXAM (02/23/2012 12:00 AM CDT) [facility] Surgeon Alton Burton [facility] Grossed By SAW [facility] Gross Report [facility] Comment: COPY TO: Sher Medina [address] [facility], [address], [place] [address]. PROCEDURE: Right thyroid lobectomy GROSS DESCRIPTION: Received [...] a rim of burgundy-brown, unremarkable thyroid parenchyma. Industrial Commercial Groundskeeper sections are submitted from superior to inferior pole in cassettes A-F, with bisected section from mid pole nodule in cassettes C/D and bisected section from lower pole nodule in cassette E/F. DYT/vr Microscopic Examination [facility] Comment: The right thyroid lobe [...] reviewed the tumor and concur. AB/scs Diagnosis [facility] Comment: 1. Right thyroid lobe, [...] Unknown AB/scs Released by DIANA HERNANDEZ M.D. [facility] CPT Code 07076 [facility] SPECIMEN FROM THYROI D OBTAINED BY THYROIDECTOMY / Unknown 02/23/2012 02/23/2012 12:34 PM CDT Rob Burton MD LAB - PATHOLOGY/CYTO LOGY ORDERABLES Performing Organization Address City/State/[facility] Co de Phone Number [facility] [address] [place] [address] * US THYROID (02/08/2012 9:20 AM CDT) [...] Lewis MD - 09/28/2011 4:23 PM CST [facility] Stress Test [facility] STRESS TEST PATIENT: MORIAH REED [facility]#: [id number] DATE OF SERVICE: 09/28/2011CCT#: [id number] : 1ROOM: REFERRING PHYSICIAN: ADMIT DATE: 09/28/2011 Maximum predicted heart rate: 149 85% of Max. predicted heart rate: 127 BENNY MPH HR BP SYMPTOMS STAGE GRADE REST 33225/80 1 1.7/10%256610/84PACs noted POST EXERCISE 707648/69 2 [id number]/65 4 [id number]/71 Duration of Exercise: 4:30 Reason for Termination: [...] of breath. CARMEN LEWIS MD ASN/JT #: [id number] CC:SHER MEDINA MD STRESS TEST - DP Sher Medina MD [facility] Organization Address City/State/ZIP Co de [...] Sher Medina MD DEXA ORDERABLES Care Teams Blanking Machine Operator Relationship Specialty Start Date End Date Benny Wilkes MD [facility] [address] PCP - General Internal Medicine 03/09/21
--- OUTSIDE RECORDS SUMMARY | 2024-10-20 21:14 | XMS_ITS | Referral Summary ---
Author Organization [facility] Address [address] [place] [address] Care Team Providers Care Art Critic Name Role Phone Benny Wilkes MD Primary Care Provider [phone] Source Comments [facility],non-owned Affiliates and Associated Physician Practices is amultiple site organization consisting of ambulatory clinics and hospital sitesin [place], [place] and [place]. This disclosure is being madepursuant to the Care Everywhere program and may not contain all information available regarding this patient. Last updated 18.[facility] Allergies No known active allergies Medications * [...] RENAL FUNCTION PANEL (05/17/2021 3:33 AM CDT) [facility] Glucose 104 70 - 105 mg/dL 05/17/2021 [...] - 4.6 gm/dL 05/17/2021 4:11 AM CDT [facility] Phosphorus 2.2(L) 2.3 - 4.7 mg/dL 05/17/2021 4:11 AM CDT [facility] eGFR by MDRD 48 mL/min/1.7 3m2 05/17/2021 4:11 AM CDT [facility] eGFR by MDRD 58 mL/min/1.7 3m2 05/17/2021 4:11 AM CDT [facility] Blood BLOOD SPECIMEN / Unknown Venipuncture / Unknown 05/17/2021 3:33 AM CDT 05/17/2021 3:45 AM CDT Calixto Glass MD LAB - CHEMISTRY SHANELL MENDES [facility] Organization Address City/State/ZIP Co de Phone Number [facility] [address] [place] [address] * (ABNORMAL) HEMOGLOBIN A1C (04/24/2021 3:41 AM CDT) Pathologist [facility] Hemoglobin A1c 7.4(H) 4.2 - 5.6 % 04/24/2021 4:29 AM CDT [facility] Estimated Average Glucose 166 mg/dL 04/24/2021 4:29 AM CDT [facility] Blood BLOOD SPECIMEN / Unknown Venipuncture / Unknown 04/24/2021 3:41 AM CDT 04/24/2021 3:56 AM CDT Narrative [facility] - 04/24/2021 4:29 AM CDT The following cutoff levels are recommended by [place] [employer]. A1c > 6.5% : considered [...] Pike MD LAB - CHEMISTRY SHANELL MENDES [facility] Organization Address City/State/ZIP Co de Phone Number [facility] [address] [place] [address] * DEXA BONE DENSITY 2 [...] Documents on File Type Date Recorded Patient Manager Technology Expl anation Adv Directive/Living Will/POA 04/29/2021 9:18 [...] 5:11 PM 03/11/2021 2:27 PM Care Teams Art Critic Relationship Specialty Start Date End Date Benny Wilkes MD [address] [place] [address] PCP - General Internal Medicine 03/09/21
--- OUTSIDE RECORDS SUMMARY | 2024-10-20 21:14 | XMS_ITS | Clinical Summary ---
Author Organization [facility] Address [address] [facility] [place] [address] Care Team Providers Care Threading Machine Setter Name Role Phone Benny Wilkes MD Primary Care Provider [phone] Source Comments [facility],non-owned Affiliates and Associated Physician Practices is amultiple site organization consisting of ambulatory clinics and hospital sitesin [place], [place] and [place]. This disclosure is being madepursuant to the Care Everywhere program and may not contain all information available regarding this patient. Last updated 18.[facility] Allergies No known active allergies Medications * [...] - 105 mg/dL 05/17/2021 4:11 AM CDT [facility] Sodium 141 136 - 145 mmol/L 05/17/2021 4:11 AM CDT [facility] Potassium 3.5 3.5 - 5.1 mmol/L 05/17/2021 4:11 AM CDT [facility] Chloride 108(H) 98 - 107 mmol/L 05/17/2021 4:11 AM CDT [facility] CO2 22(L) 23 - 31 mmol/L 05/17/2021 4:11 AM CDT [facility] Calcium 8.4 8.4 - 10.4 mg/dL 05/17/2021 4:11 AM CDT [facility] Anion Gap 11 8 - 18 mmol/L 05/17/2021 4:11 AM CDT [facility] BUN 16 9.8 - 20.1 mg/dL 05/17/2021 4:11 AM CDT [facility] Creatinine 1.10 0.57 - 1.11 mg/dL 05/17/2021 4:11 AM CDT [facility] Albumin 3.5 3.2 - 4.6 gm/dL 05/17/2021 4:11 AM CDT [facility] Phosphorus 2.2(L) 2.3 - 4.7 mg/dL 05/17/2021 4:11 AM CDT [facility] eGFR by MDRD 48 mL/min/1.7 3m2 05/17/2021 4:11 AM CDT [facility] eGFR by MDRD 58 mL/min/1.7 3m2 05/17/2021 4:11 AM CDT [facility] Blood BLOOD SPECIMEN / Unknown Venipuncture / Unknown 05/17/2021 3:33 AM CDT 05/17/2021 3:45 AM CDT Calixto Glass MD LAB - CHEMISTRY SHANELL MENDES [facility] [address] [place] [address] * (ABNORMAL) HEMOGLOBIN A1C (04/24/2021 3:41 AM CDT) Hemoglobin A1c 7.4(H) 4.2 - 5.6 % 04/24/2021 4:29 AM CDT [facility] Estimated Average Glucose 166 mg/dL 04/24/2021 4:29 AM CDT [facility] Blood BLOOD SPECIMEN / Unknown Venipuncture / Unknown 04/24/2021 3:41 AM CDT 04/24/2021 3:56 AM CDT Narrative [facility] - 04/24/2021 4:29 AM CDT The following cutoff levels are recommended by [place] [employer]. A1c > 6.5% : considered [...] MD LAB - CHEMISTRY SHANELL MENDES [facility] Organization Address City/State/ZIP Co de Phone Number [facility] [address] [place] [address] * DEXA BONE DENSITY 2 [...] Documents on File Type Date Recorded Patient Nurse Technician Expl anation Adv Directive/Living Will/POA 04/29/2021 9:18 [...] 5:11 PM 03/11/2021 2:27 PM Care Teams Threading Machine Setter Relationship Specialty Start Date End Date Benny Wilkes MD [address] [address] PCP - General Internal Medicine 03/09/21
--- OUTSIDE RECORDS SUMMARY | 2024-10-20 21:14 | XMS_ITS | Encounter Summary ---
Author Organization [facility] Address [address] [place] [address] Care Team Providers Care Masonry Supervisor Name Role Phone Benny Wilkes MD Primary Care Provider [phone] Encounter Details Date Type Department Care Team (Late st Contact Info) Description 04/27/2021 3:15 PM CDT Hospital Encounter [address] [id number] Lili Bethea MD [facility] [facility] [place] [phone] Aguilar Latham MD [facility] [address] [place] [phone] Eugene De Jesus MD [facility] [...] on filedocumented in this encounter Care Teams Masonry Supervisor Relationship Specialty Start Date End Date Benny Wilkes MD [address] [address] PCP - General Internal Medicine 03/09/21 documented as of this encounter
[2024-10-20 21:20] VITALS: BP 116/60; PULSE 60; RESP 15; O2SAT 97
[2024-10-20 21:33] LABS: Basophils Percent Auto 0.3 % (0.2-1.2); Eosinophils Percent Auto 0.4 % (0-4.4); Hematocrit 36.5 % (37.0-47.0); Hemoglobin 11.8 g/dL (12.0-15.0); Immature Granulocyte Absolute 0.05 K/mm3 (0.00-0.031); Immature Granulocyte Percent A 0.7 % (0-0.5); Immature Platelet Fraction Pct 3.3 % (0.9-11.2); Lymphocytes Absolute Auto 0.43 K/mm3 (0.9-3.2); Lymphocytes Percent Auto 6.4 % (18.3-44.2); Mean Corpuscular HGB Conc 32.3 g/dl (32-36); Mean Corpuscular Hemoglobin 30.5 pg (26-34); Mean Corpuscular Volume 94.3 fl (80-100); Mean Platelet Volume 10.5 fl (7.4-10.4); Monocytes Absolute Auto 0.8 K/mm3 (0.1-0.6); Monocytes Percent Auto 12.3 % (2.6-8.5); Neutrophils Absolute Auto 5.4 K/mm3 (1.3-6.7); Neutrophils Percent Auto 79.9 % (45.5-73.1); Platelet Count Result 121 k/mm3 (150-375); Red Blood Count 3.87 M/mm3 (4.2-5.4); Red Cell Distribution Width 13.3 % (11.5-14.5); White Blood Count 6.7 K/mm3 (4.5-10.0)
[2024-10-20 21:50] LABS: Alanine Aminotransferase 24 U/L (6-35); Albumin Level 4.5 g/dL (3.5-5.1); Alkaline Phosphatase 76 U/L (38-126); Anion Gap 15 mmol/L (4-12); Aspartate Amino Transferase 39 U/L (14-36); Bilirubin,Total 0.7 mg/dL (0.2-1.3); Blood Urea Nitrogen 32 mg/dL (7-17); Calcium 9.3 mg/dL (8.4-10.2); Carbon Dioxide 18 mmol/L (22-30); Chloride 103 mmol/L (98-107); Estimated CRCL calculation 12 ml/min; Estimated Glomerular Filt Rate 18; Glucose 158 mg/dL (65-110); Potassium 4.8 mmol/L (3.4-5.0); Sodium 136 mmol/L (137-145)
[2024-10-20] MEDS: ONDANSETRON INJ 4 MG/2 ML VIAL IV PUSH (21:56)
[2024-10-20] MEDS: SODIUM CHLORIDE 0.9% IV 1,000 ML 999 ML IV CONT (21:56)
[2024-10-20 22:08] LABS: Influenza A QL RT-PCR Negative (Negative); Influenza B QL RT-PCR Negative (Negative); RSV RNA, RT-PCR Negative (Negative); SARS-CoV-2 RNA PCR Negative (Negative)
[2024-10-20 22:41] LABS: Hemoglobin A1C 6.1 % (<5.7)
[2024-10-20 23:00] LABS: Glucose Point of Care 132 mg/dl (65-105)
[2024-10-20] MEDS: LACTATED RINGERS 1,000 ML 150 ML IV CONT (23:06)
[2024-10-20 23:12] VITALS: BP 104/86; PULSE 57; RESP 16; O2SAT 91
[2024-10-20 23:42] LABS: Add Urine Microscopic? YES; Appearance Urine Clear (Clear); Bacteria Urine None Seen /hpf; Bilirubin Urine Negative (Negative); Blood Urine Negative (Negative); Color Urine Yellow (Yellow); Glucose Urine UA 3+ mg/dL (Negative); Ketones Urine Trace mg/dL (Negative); Leukocyte Esterase Ur Negative LEU/UL (Negative); Need Manual Microscopic Reviewed; Nitrate Urine Negative (Negative); Non Pathogenic Casts >20; Protein Urine 1+ mg/dL (Negative); RBC Urine 0-2 /hpf (0-2); Specific Grav Ur 1.023 (1.001-1.035); Squamous Epithelial Cell Urine None Seen /hpf (Few); Urobilinogen Urine 0.2 mg/dL (<2.0); WBC Urine 0-5 /hpf (0-3); pH Urine 5.5 (5.0-9.0)
[2024-10-20 23:45] VITALS: O2SAT 99
[2024-10-21] VITALS (11 sets, daily range): BP systolic 111–155; BP diastolic 48–82; PULSE 43–81; RESP 12–28; TEMP 36.2–37.9; O2SAT 93–100; BMI 24.5
--- NOTE | 2024-10-21 00:02 | ED.GENADULT ---
HPI - General Adult General Chief complaint: Recheck/Abnormal Lab/Rx Stated complaint: LOW BG, WEAKNESS Time Seen by Provider: 10/20/24 21:06 History of Present Illness HPI narrative: This is an 83-year-old female presenting ED with chief of low blood sugars. Patient has felt nauseous for the last 3 or 4 days and has not been eating well. She has continued to take her diabetes medications. Today she had a hypoglycemic episode with confusion and diaphoresis. EMS got a glucose of 52 and she was given D10 with improvement. At this time she is resting comfortably in bed with no complaints. Related Data Home Medications ?Medication ?Instructions ?Recorded ?Confirmed ?Last Taken ?Type apixaban 2.5 mg tablet (Eliquis) 2.5 mg BID 07/03/21 07/01/24 Unknown History atorvastatin 80 mg tablet 80 mg PO DAILY 07/03/21 07/01/24 Unknown History metoprolol succinate 50 mg 50 mg PO DAILY 10/30/23 07/01/24 Unknown History tablet,extended release 24 hr albuterol sulfate 90 mcg/actuation 2 puff inhalation Q4H PRN 06/23/24 07/01/24 Unknown History aerosol inhaler Shortness Of Breath fluoxetine 20 mg capsule 20 mg PO DAILY 06/23/24 07/01/24 Unknown History glimepiride 2 mg tablet 2 mg PO DAILY 06/23/24 07/01/24 Unknown History levothyroxine 50 mcg tablet 50 mcg PO DAILY 06/23/24 07/01/24 Unknown History metformin 500 mg tablet,extended 500 mg PO DAILY 06/23/24 07/01/24 Unknown History release 24 hr Allergies Allergy/AdvReac Type Severity Reaction Status Date / Time No Known Drug Allergies Allergy Unknown Unknown Verified 10/20/24 22:07 [facility] Past Medical History Medical History Acute on chronic kidney failure Diabetes Right-sided heart failure Aortic valve stenosis Mild aortic valve stenosis with a valve area of 1.5 cm2 on echocardiogram in March 2022. Pulmonary hypertension Severe pulmonary hypertension with a PASP of 69 mmHg on echocardiogram in March 2022. 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 CODE STATUS: She is okay with CPR and medications but does not wish to be intubated. Modified code, updated. Smoking packs per day: 2 Smoking cigarettes per day: 40.0 Years smoked: 50 Smoking pack-years: 100.00 Smoking status: Former smoker Tobacco type: cigarettes Smoking end date: 06/08/20 Alcohol intake: never Substance use: never Substance use type: does not use Do You Feel Safe in your Home?: Yes Lack of Transportation: No Lack of Food: Never True Current Housing: I Have Housing Concerned About Future Housing: No Difficulty Paying Gas/Electric Bills: No Difficulty Paying for Meds: No Currently Unemployed: No Education: High School Diploma/GED Difficulty w/ Childcare or Family Care: No Additional living arrangements comments: Assisted living at [facility]. Additional occupation/education comments: Retired. Spiritual care concerns: No Exam Narrative: APPEARANCE: No apparent distress. A&O x3 Head: atraumatic. EYES: EOMI, NOSE: Atraumatic NECK: Trachea midline RESPIRATORY: No increased rate of breathing CTAB CARDIOVASCULAR: RRR, no peripheral edema ABDOMINAL: Non-distended soft nontender MUSCULOSKELETAl: No obvious deformities NEURO: Alert. Moving 4/4 extremities SKIN:: Warm, dry. Normal color PSYCHIATRIC: Normal affect Course Vital Signs Vital signs: Vital Signs Temperature 97.3 F L 10/20/24 20:54 Pulse Rate 65 10/20/24 20:54 Respiratory Rate 23 H 10/20/24 20:54 Blood Pressure 115/85 10/20/24 20:54 Pulse Oximetry 94 10/20/24 20:54 Oxygen Delivery Room Air 10/20/24 20:54 Temperature 97.3 F L 10/20/24 20:54 Pulse Rate 57 L 10/20/24 23:12 Respiratory Rate 16 10/20/24 23:12 Blood Pressure 104/86 10/20/24 23:12 Pulse Oximetry 99 10/20/24 23:45 Oxygen Delivery Nasal Cannula 10/20/24 23:45 Oxygen Flow Rate 2 10/20/24 23:45 Medical Decision Making MDM Narrative Medical decision making narrative: -Course: 83-year-old female diabetes presenting with episode of low blood sugar. Patient has decreased oral intake last several days. She was given fluids in the ED and blood sugars were monitored and were stable. Workup was significant for acute kidney injury to creatinine of 2.6 from baseline 1.3. Patient was given fluid rehydration. She will be placed in hospital for further management. -DDX includes but is not limited to: Dehydration, decreased oral intake sepsis, UTI pneumonia Vital Signs Vital Signs: Vital Signs Temperature 97.3 F L 10/20/24 20:54 Pulse Rate 65 10/20/24 20:54 Respiratory Rate 23 H 10/20/24 20:54 Blood Pressure 115/85 10/20/24 20:54 Pulse Oximetry 94 10/20/24 20:54 Oxygen Delivery Room Air 10/20/24 20:54 Temperature 97.3 F L 10/20/24 20:54 Pulse Rate 57 L 10/20/24 23:12 Respiratory Rate 16 10/20/24 23:12 Blood Pressure 104/86 10/20/24 23:12 Pulse Oximetry 99 10/20/24 23:45 Oxygen Delivery Nasal Cannula 10/20/24 23:45 Oxygen Flow Rate 2 10/20/24 23:45 Lab Data 10/20/24 21:17 10/20/24 21:17 Labs: Lab Results 10/20/24 10/20/24 10/20/24 Range/Units 21:02 21:17 22:58 WBC 6.7 (4.5-10.0) K/mm3 RBC 3.87 L (4.2-5.4) M/mm3 Hgb 11.8 L (12.0-15.0) g/dL Hct 36.5 L (37.0-47.0) % MCV 94.3 (80-100) fl MCH 30.5 (26-34) pg MCHC 32.3 (32-36) g/dl RDW 13.3 (11.5-14.5) % Plt Count 121 L (150-375) k/mm3 MPV 10.5 H (7.4-10.4) fl Immature Gran % (Auto) 0.7 H (0-0.5) % Neut % (Auto) 79.9 H (45.5-73.1) % Lymph % (Auto) 6.4 L (18.3-44.2) % [place] % (Auto) 12.3 H (2.6-8.5) % Eos % (Auto) 0.4 (0-4.4) % Baso % (Auto) 0.3 (0.2-1.2) % Lymph # (Auto) 0.43 L (0.9-3.2) K/mm3 [place] # (Auto) 0.8 H (0.1-0.6) K/mm3 Eos # (Auto) 0.0 (0-0.3) K/mm3 Baso # (Auto) 0.0 (0.0-0.1) K/mm3 Abs Immat Gran (auto) 0.05 H (0.00-0.031) K/mm3 Absolute Neuts (auto) 5.4 (1.3-6.7) K/mm3 Absolute Nucleated RBC 0.000 (0.0-0.012) K/mm3 Nucleated RBC % 0.0 (0.0-0.2) % % Immature Plt Fraction 3.3 (0.9-11.2) % Sodium 136 L (137-145) mmol/L Potassium 4.8 (3.4-5.0) mmol/L Chloride 103 (98-107) mmol/L Carbon Dioxide 18 L (22-30) mmol/L Anion Gap 15 H (4-12) mmol/L BUN 32 H (7-17) mg/dL Creatinine 2.60 H (0.7-1.0) mg/dL Estim Creat Clear Calc 12 ml/min Estimated GFR 18 L (59 - ) Glucose 158 H (65-110) mg/dL POC Capillary Glucose 172 H 132 H (65-105) mg/dl Hemoglobin A1c 6.1 H (<5.7) % Calcium 9.3 (8.4-10.2) mg/dL Total Bilirubin 0.7 (0.2-1.3) mg/dL AST 39 H (14-36) U/L ALT 24 (6-35) U/L Alkaline Phosphatase 76 (38-126) U/L Total Protein 8.0 (6.3-8.2) g/dL Albumin 4.5 (3.5-5.1) g/dL Urine Color (Yellow) Urine Appearance (Clear) Urine pH (5.0-9.0) Ur Specific [place] (1.001-1.035) Urine Protein (Negative) mg/dL Urine Glucose (UA) (Negative) mg/dL Urine Ketones (Negative) mg/dL Ur Blood (Man) (Negative) Urine Nitrate (Negative) Urine Bilirubin (Negative) Urine Urobilinogen (<2.0) mg/dL Add Ur Microanalysis Leukocyte Esterase Rfl (Negative) MERRICK/UL Urine RBC (0-2) /hpf Urine WBC (0-3) /hpf Ur Squamous Epith Cells (Few) /hpf Urine Bacteria /hpf Urine Casts Influenza A (RT-PCR) Negative (Negative) Influenza B (RT-PCR) Negative (Negative) RSV (RT-PCR) Negative (Negative) SARS-CoV-2 RNA (RT-PCR) Negative (Negative) 10/20/24 Range/Units 23:15 WBC (4.5-10.0) K/mm3 RBC (4.2-5.4) M/mm3 Hgb (12.0-15.0) g/dL Hct (37.0-47.0) % MCV (80-100) fl MCH (26-34) pg MCHC (32-36) g/dl RDW (11.5-14.5) % Plt Count (150-375) k/mm3 MPV (7.4-10.4) fl Immature Gran % (Auto) (0-0.5) % Neut % (Auto) (45.5-73.1) % Lymph % (Auto) (18.3-44.2) % [place] % (Auto) (2.6-8.5) % Eos % (Auto) (0-4.4) % Baso % (Auto) (0.2-1.2) % Lymph # (Auto) (0.9-3.2) K/mm3 [place] # (Auto) (0.1-0.6) K/mm3 Eos # (Auto) (0-0.3) K/mm3 Baso # (Auto) (0.0-0.1) K/mm3 Abs Immat Gran (auto) (0.00-0.031) K/mm3 Absolute Neuts (auto) (1.3-6.7) K/mm3 Absolute Nucleated RBC (0.0-0.012) K/mm3 Nucleated RBC % (0.0-0.2) % % Immature Plt Fraction (0.9-11.2) % Sodium (137-145) mmol/L Potassium (3.4-5.0) mmol/L Chloride (98-107) mmol/L Carbon Dioxide (22-30) mmol/L Anion Gap (4-12) mmol/L BUN (7-17) mg/dL Creatinine (0.7-1.0) mg/dL Estim Creat Clear Calc ml/min Estimated GFR (59 - ) Glucose (65-110) mg/dL POC Capillary Glucose (65-105) mg/dl Hemoglobin A1c (<5.7) % Calcium (8.4-10.2) mg/dL Total Bilirubin (0.2-1.3) mg/dL AST (14-36) U/L ALT (6-35) U/L Alkaline Phosphatase (38-126) U/L Total Protein (6.3-8.2) g/dL Albumin (3.5-5.1) g/dL Urine Color Yellow (Yellow) Urine Appearance Clear (Clear) Urine pH 5.5 (5.0-9.0) Ur Specific [place] 1.023 (1.001-1.035) Urine Protein 1+ H (Negative) mg/dL Urine Glucose (UA) 3+ H (Negative) mg/dL Urine Ketones Trace H (Negative) mg/dL Ur Blood (Man) Negative (Negative) Urine Nitrate Negative (Negative) Urine Bilirubin Negative (Negative) Urine Urobilinogen 0.2 (<2.0) mg/dL Add Ur Microanalysis Reviewed Leukocyte Esterase Rfl Negative (Negative) MERRICK/UL Urine RBC 0-2 (0-2) /hpf Urine WBC 0-5 (0-3) /hpf Ur Squamous Epith Cells None seen (Few) /hpf Urine Bacteria None seen /hpf Urine Casts >20 Influenza A (RT-PCR) (Negative) Influenza B (RT-PCR) (Negative) RSV (RT-PCR) (Negative) SARS-CoV-2 RNA (RT-PCR) (Negative) Discharge Plan Discharge Clinical Impression: Hypoglycemia, Acute kidney injury, Acute dehydration Patient Disposition: Home, Self-Care Condition: Stable Instructions: Antibiotic Form Patient Language: Armenian Prescriptions: No Action metoprolol succinate 50 mg tablet extended release 24 hr 50 mg PO DAILY Benefiber Healthy Shape 5 gram/7.4 gram powder See Rx Instructions PO .COMPLEX Qty: 500 0RF Rx Instructions: Per titration sheet daily to bid; docusate sodium 100 mg capsule 100 mg PO BID Qty: 60 2RF magnesium citrate [OneLAX Magnesium Citrate] Solution 300 ml PO ONCE PRN (Reason: constipation) Qty: 296 0RF Rx Instructions: as a single dose as needed for 3-4 with BM. atorvastatin 80 mg tablet 80 mg PO DAILY Eliquis 2.5 mg tablet 2.5 mg BID amlodipine [Norvasc] 5 mg Tablet 5 mg PO QAM 30 Days Qty: 30 0RF Jardiance 10 mg Tablet 10 mg PO DAILY 30 Days Qty: 30 0RF spironolactone [Aldactone] 25 mg tablet 25 mg PO DAILY 30 Days Qty: 30 0RF glimepiride 2 mg tablet 2 mg PO DAILY levothyroxine 50 mcg tablet 50 mcg PO DAILY albuterol sulfate 90 mcg/actuation HFA aerosol inhaler 2 puff INHALATION Q4H PRN (Reason: Shortness Of Breath) fluoxetine 20 mg capsule 20 mg PO DAILY metformin 500 mg tablet extended release 24 hr 500 mg PO DAILY sulfamethoxazole-trimethoprim [Bactrim DS] 800-160 mg tablet 1 tablet PO Q12H Qty: 14 0RF Follow-up/Referrals: UNKNOWN,DOCTOR [Primary Care Provider] -
--- NOTE | 2024-10-21 06:34 | ECG_ITS ---
Test Date: 2024-10-21 06:39:35 Measurements Intervals [place] Rate: 70 P: 0 SD: 0 QRS: 57 QRSD: 88 T: -71 QT: 380 QTc: 412 Interpretive Statements ATRIAL FIBRILLATION WITH FREQUENT VENTRICULAR PREMATURE COMPLEXES CANNOT R/O SEPTAL INFARCT, AGE INDETERMINATE NONSPECIFIC ST & T-WAVE ABNORMALITY- ANTEROLAT/INF LEADS BASELINE ARTIFACT- I, II, III, AVR, AVL, AVF ABNORMAL ECG Compared to ECG 10/06/2024 12:04:18 HEART RATE HAS INCREASED Ventricular premature complex(es) now present Electronically Signed On 10-21-2024 08:01:14 OUTDOOR ADVENTURE LEADER by Kodi Gan D.O.
[2024-10-21 08:03] LABS: Glucose Point of Care 42 mg/dl (65-105)
[2024-10-21] MEDS: DEXTROSE 50% 25 GM/50 ML SYRINGE IV PUSH (08:05)
[2024-10-21 08:23] LABS: Basophils Percent Auto 0.3 % (0.2-1.2); Eosinophils Percent Auto 0.4 % (0-4.4); Hematocrit 36.8 % (37.0-47.0); Hemoglobin 11.5 g/dL (12.0-15.0); Immature Granulocyte Absolute 0.08 K/mm3 (0.00-0.031); Immature Granulocyte Percent A 1.1 % (0-0.5); Immature Platelet Fraction Pct 2.8 % (0.9-11.2); Lymphocytes Absolute Auto 0.42 K/mm3 (0.9-3.2); Lymphocytes Percent Auto 5.7 % (18.3-44.2); Mean Corpuscular HGB Conc 31.3 g/dl (32-36); Mean Corpuscular Hemoglobin 31.2 pg (26-34); Mean Corpuscular Volume 99.7 fl (80-100); Mean Platelet Volume 10.1 fl (7.4-10.4); Monocytes Absolute Auto 1.1 K/mm3 (0.1-0.6); Monocytes Percent Auto 14.4 % (2.6-8.5); Neutrophils Absolute Auto 5.8 K/mm3 (1.3-6.7); Neutrophils Percent Auto 78.1 % (45.5-73.1); Platelet Count Result 110 k/mm3 (150-375); Red Blood Count 3.69 M/mm3 (4.2-5.4); Red Cell Distribution Width 13.1 % (11.5-14.5); White Blood Count 7.4 K/mm3 (4.5-10.0)
[2024-10-21 08:26] LABS: Glucose Point of Care 113 mg/dl (65-105)
[2024-10-21 08:39] LABS: Lactic Acid Reflex 1.2 mmol/L (0.7-2.0)
[2024-10-21 08:40] LABS: Alanine Aminotransferase 23 U/L (6-35); Albumin Level 3.9 g/dL (3.5-5.1); Alkaline Phosphatase 82 U/L (38-126); Anion Gap 12 mmol/L (4-12); Aspartate Amino Transferase 30 U/L (14-36); Bilirubin,Total 0.5 mg/dL (0.2-1.3); Blood Urea Nitrogen 25 mg/dL (7-17); Calcium 8.5 mg/dL (8.4-10.2); Carbon Dioxide 17 mmol/L (22-30); Chloride 108 mmol/L (98-107); Estimated CRCL calculation 16 ml/min; Estimated Glomerular Filt Rate 25; Glucose 107 mg/dL (65-110); Magnesium 1.8 mg/dL (1.6-2.3); Phosphorus 3.7 mg/dL (2.5-4.5); Potassium 4.5 mmol/L (3.4-5.0); Sodium 137 mmol/L (137-145)
--- NOTE | 2024-10-21 10:42 | ADMGEN ---
This patient, Moriah Grace, was admitted to 3 [facility] Surg Room 306-02. Patient/family oriented to hospital policies and general routines including ID bracelet, bed and alarms, visiting hours, pain management, procedures, bathroom and other care routines, personal items, smoking policy, room service/diet, and visiting hours. Information on how to activate the Rapid Response Team has been discussed. Patient/Family are encouraged to report perceived risks to care and to ask questions if they do not understand what they are told or what they should do.
--- NOTE | 2024-10-21 11:07 | P.HP_ITS ---
H&P: HPI History of Present Illness Date/Time: 10/21/24 11:07 Chief Complaint: Low blood sugars and weakness. Narrative: Patient is an 83 year old female that came to the ER with low blood sugars and weakness. Patient had been feeling nauseous and not eating well at home but continued to take her diabetic medications. Patient was given IV fluids in the ER. Creatinine 2.60, HgbA1c 6.1%. UA 1+ protein, 3+ glucose, trace ketones. Respiratory panel negative. Patient reports feeling a little better. Patient reports that she has hemorrhoids that occasionally bleed and that she has been taking her Eliquis. Patient reports that she walks with a walker. Patient denies chest pain, palpitations, shortness of breath, headache, dizziness, nausea, or vomiting. Chest X-ray: Central congestive change and mild to moderate probable pulmonary edema pattern.. Review of Systems Review of Systems: All systems reviewed & are unremarkable except as noted in HPI and below PMFSH Past Medical History Medical History Acute on chronic kidney failure Diabetes Right-sided heart failure Aortic valve stenosis Mild aortic valve stenosis with a valve area of 1.5 cm2 on echocardiogram in March 2022. Pulmonary hypertension Severe pulmonary hypertension with a PASP of 69 mmHg on echocardiogram in March 2022. 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 CODE STATUS: She is okay with CPR and medications but does not wish to be intubated. Modified code, updated. Smoking packs per day: 3 Smoking cigarettes per day: 60.0 Years smoked: 50 Smoking pack-years: 150.00 Smoking status: Former smoker Tobacco type: cigarettes Smoking end date: 06/08/20 Alcohol intake: never Substance use: never Substance use type: does not use Do You Feel Safe in your Home?: Yes Lack of Transportation: YES Lack of Food: Never True Current Housing: I Have Housing Concerned About Future Housing: No Difficulty Paying Gas/Electric Bills: No Difficulty Paying for Meds: No Currently Unemployed: No Education: Decline to Answer Difficulty w/ Childcare or Family Care: No Additional living arrangements comments: Assisted living at [facility]. Additional occupation/education comments: Retired. Spiritual care concerns: No Meds Home Medications and Allergies Home Medications ?Medication ?Instructions ?Recorded ?Confirmed ?Type apixaban 2.5 mg tablet (Eliquis) 2.5 mg PO BID 07/03/21 10/21/24 History atorvastatin 80 mg tablet 80 mg PO DAILY 07/03/21 10/21/24 History amlodipine 5 mg tablet (Norvasc) 5 mg PO QAM 1 month #30 tabs 03/15/23 10/21/24 Rx empagliflozin 10 mg tablet 10 mg PO DAILY 1 month #30 tabs 03/15/23 10/21/24 Rx (Jardiance) spironolactone 25 mg tablet 25 mg PO DAILY 1 month #30 tabs 03/15/23 10/21/24 Rx (Aldactone) metoprolol succinate 50 mg 50 mg PO DAILY 10/30/23 10/21/24 History tablet,extended release 24 hr albuterol sulfate 90 mcg/actuation 2 puff inhalation Q4H PRN 06/23/24 10/21/24 History aerosol inhaler Shortness Of Breath fluoxetine 20 mg capsule 20 mg PO DAILY 06/23/24 10/21/24 History glimepiride 2 mg tablet 2 mg PO DAILY 06/23/24 10/21/24 History levothyroxine 50 mcg tablet 50 mcg PO DAILY 06/23/24 10/21/24 History metformin 500 mg tablet,extended 500 mg PO DAILY 06/23/24 10/21/24 History release 24 hr docusate sodium 100 mg capsule 100 mg PO BID #60 caps 07/01/24 10/21/24 Rx magnesium citrate (OneLAX 300 ml PO ONCE PRN constipation 07/01/24 10/21/24 Rx Magnesium Citrate oral solution) #296 mL sulfamethoxazole 800 1 tablet PO Q12H #14 tabs 10/14/24 10/21/24 Rx mg-trimethoprim 160 mg tablet (Bactrim DS) Allergies Allergy/AdvReac Type Severity Reaction Status Date / Time No Known Drug Allergies Allergy Unknown Unknown Verified 10/21/24 07:16 Vital Signs Vital Signs - 24 hr 10/20/24 20:54 10/20/24 21:20 10/20/24 21:20 Temperature 97.3 F L Pulse Rate 65 60 Respiratory Rate 23 H 15 15 Blood Pressure 115/85 116/60 Pulse Oximetry 94 97 97 Oxygen Delivery Room Air Oxygen Flow Rate 10/20/24 23:12 10/20/24 23:45 10/21/24 01:00 Temperature 98.7 F Pulse Rate 57 L 43 L Respiratory Rate 16 12 Blood Pressure 104/86 124/57 L Pulse Oximetry 91 99 100 Oxygen Delivery Nasal Cannula Oxygen Flow Rate 2 10/21/24 02:14 10/21/24 05:07 10/21/24 07:17 Temperature 97.6 F 98.1 F 97.5 F L Pulse Rate 44 L 62 72 Respiratory Rate 12 12 18 Blood Pressure 127/67 155/65 H 154/55 H Pulse Oximetry 98 99 98 Oxygen Delivery Oxygen Flow Rate 10/21/24 08:58 10/21/24 09:01 10/21/24 09:01 Temperature Pulse Rate 68 69 Respiratory Rate 16 16 28 H Blood Pressure Pulse Oximetry 98 96 100 Oxygen Delivery Oxygen Flow Rate 2 10/21/24 09:34 10/21/24 10:15 Temperature 97.1 F L Pulse Rate 71 81 Respiratory Rate 18 16 Blood Pressure 111/61 142/82 H Pulse Oximetry 97 100 Oxygen Delivery Oxygen Flow Rate Exam Const: General: comfortable and no acute distress Eyes: Sclera: sclerae normal Pupils: Equal, round and reactive pupils present Neck: Neck: supple Resp: Effort & Inspection: normal respiratory effort Auscultation: clear to auscultation bilaterally Cardio: Rate: regular rate Rhythm: regular rhythm GI: GI Palp: Yes Soft to palpation Auscultation: normal bowel sounds Skin: General skin exam: no rashes or lesions noted Other: 4th toe on left foot bruised from being broken Neuro: Speech: normal speech Extrem: General: no pedal edema Psych: Mental Status: mental status grossly normal Affect: normal affect H&P: Results Labs Labs: Short CBC 10/20/24 10/21/24 Range/Units 21:17 08:15 WBC 6.7 7.4 (4.5-10.0) K/mm3 Hgb 11.8 L 11.5 L (12.0-15.0) g/dL Hct 36.5 L 36.8 L (37.0-47.0) % Plt Count 121 L 110 L (150-375) k/mm3 BMP 10/20/24 10/21/24 21:17 08:15 Sodium 136 L 137 Potassium 4.8 4.5 Chloride 103 108 H Carbon Dioxide 18 L 17 L BUN 32 H 25 H Creatinine 2.60 H 1.95 H Glucose 158 H 107 Calcium 9.3 8.5 Liver Function 10/20/24 10/21/24 Range/Units 21:17 08:15 Total Bilirubin 0.7 0.5 (0.2-1.3) mg/dL AST 39 H 30 (14-36) U/L ALT 24 23 (6-35) U/L Alkaline Phosphatase 76 82 (38-126) U/L Albumin 4.5 3.9 (3.5-5.1) g/dL Urine 10/20/24 Range/Units 23:15 Urine Color Yellow (Yellow) Urine Appearance Clear (Clear) Urine pH 5.5 (5.0-9.0) Ur Specific [place] 1.023 (1.001-1.035) Urine Protein 1+ H (Negative) mg/dL Urine Glucose (UA) 3+ H (Negative) mg/dL Assessment and Plan Assessment and plan (1) PRANAY (acute kidney injury): Code(s): N17.9 - Acute kidney failure, unspecified Status: Acute Assessment and Plan: * Creatinine 2.60 on admission. Improved to 1.95 after IV fluids. * Encourage oral intake. * Monitor renal function. (2) Diabetes: Code(s): E11.9 - Type 2 diabetes mellitus without complications Status: Acute Assessment and Plan: * Hypoglycemic protocol. * SSI * HgbA1C 6.1%. * Hold home metformin and glimepiride. * Continue Jardiance 10 mg PO daily. (3) Paroxysmal atrial fibrillation: Code(s): I48.0 - Paroxysmal atrial fibrillation Status: Acute Assessment and Plan: * Apixaban 2.5 mg PO BID * Metoprolol Succinate 50 mg PO daily. (4) Right-sided heart failure: Code(s): I50.810 - Right heart failure, unspecified Status: Acute Assessment and Plan: * Spironolactone 25 mg PO daily. * Jardiance 10 mg Po daily. * Metoprolol Succinate 50 mg PO daily. (5) Weakness: Code(s): R53.1 - Weakness Status: Acute Assessment and Plan: * PT/OT (6) Nausea: Code(s): R11.0 - Nausea Status: Acute Assessment and Plan: * Ondansetron 4 mg ivp q 6 PRN. (7) Hypertension: Code(s): I10 - Essential (primary) hypertension Status: Acute Assessment and Plan: * blood pressure reading 142/82. * Continue Amlodipine 5 mg PO daily. Quality VTE Prophylaxis VTE prophylaxis: pharmacologic ordered Hospitalist MIPS Advance Care Plan I have confirmed that the patient's Advanced Care Plan is present, code status is documented, or surrogate decision maker is listed in patient medical record.: Yes Medication Reconciliation I have utilized all available resources to obtain, update and review the patients current medications (includes all prescriptions, OTC, herbals, cannabis, and nutritional supplements).: Yes
[2024-10-21 12:02] LABS: Glucose Point of Care 101 mg/dl (65-105)
[2024-10-21 17:26] LABS: Glucose Point of Care 64 mg/dl (65-105)
[2024-10-21 17:53] LABS: Glucose Point of Care 107 mg/dl (65-105)
[2024-10-21] MEDS: DOCUSATE SODIUM 100 MG CAPSULE PO (18:54)
[2024-10-21] MEDS: APIXABAN 2.5 MG TABLET PO (21:05)
[2024-10-21 21:59] LABS: Glucose Point of Care 80 mg/dl (65-105)
--- NOTE | 2024-10-22 | ECHO_ITS ---
Patient Info Name: Moriah Grace Age: 83 years : 1940 Gender: Female Ht: 62 in Wt: 134 lbs BSA: 1.64 m2 HR: 74 bpm BP: 111 / 53 mmHg Heart Rhythm: Atrial Fibrillation Technical Quality: Fair Exam Date: 10/22/2024 4:02 PM Exam Location: Echo Lab Patient Status: Inpatient Admit Date: 10/21/2024 Staff Ordering Physician: Ellyn Davis APRN Elevator Constructor Helper: Tabby Hunt RDCS Attending Provider: Shruthi Rivera DO Referring Physician: Ryan CLIFFORD; Exam Type: CA echo doppler color flow Study Info Indications - Pulmonary edema Complete two-dimensional, color flow and Doppler transthoracic echocardiogram is performed. Summary 1. Complete two-dimensional, color flow and Doppler transthoracic echocardiogram is performed. 2. Left ventricular chamber dimension is normal. 3. Left ventricular systolic function is normal, estimated at 65-70%. 4. There is mild concentric increased left ventricular wall thickness. 5. The left ventricular diastolic function is abnormal. 6. E/e' 16 is elevated. 7. Atrial fibrillation. 8. Right ventricular systolic function is reduced based on abnormal TAPSE 1.3 cm. 9. Left atrial chamber dimension is severely enlarged. 10. Right atrial chamber dimension is moderately enlarged. 11. There is mild aortic valve sclerosis. 12. The mitral valve has mildly calcified annulus. 13. There is mild to moderate mitral valve regurgitation. 14. There is mild tricuspid valve regurgitation. 15. Moderate pulmonary hypertension, estimated pulmonary arterial systolic pressure is 54 mmHg. 16. There is trace pulmonic regurgitation. 17. There is trivial pericardial effusion. Left Ventricle E/e' 16 is elevated. Atrial fibrillation. Left ventricular chamber dimension is normal. Left ventricular systolic function is normal, estimated at 65-70%. There is mild concentric increased left ventricular wall thickness. The left ventricular diastolic function is abnormal. Right Ventricle Right ventricular systolic function is reduced based on abnormal TAPSE 1.3 cm. Right ventricular chamber dimension is not well visualized. Left Atria Left atrial chamber dimension is severely enlarged. Right Atria Right atrial chamber dimension is moderately enlarged. Aortic Valve The aortic valve is trileaflet. There is mild aortic valve sclerosis. There is no aortic valve stenosis. There is no aortic valve regurgitation. Pulmonic Valve There is trace pulmonic regurgitation. Mitral Valve The mitral valve has mildly calcified annulus. There is no mitral valve stenosis. There is mild to moderate mitral valve regurgitation. Tricuspid Valve There is mild tricuspid valve regurgitation. Moderate pulmonary hypertension, estimated pulmonary arterial systolic pressure is 54 mmHg. Pericardium/Pleural There is trivial pericardial effusion. Inferior Vena Cava Normal inferior vena cava with >50% collapse upon inspiration consistent with normal right atrial pressure, 5 mmHg. Aorta The aortic root size at the sinus of Valsalva is normal. Left Ventricular Outflow Tract Name Value Normal LVOT 2D LVOT Diameter 1.9 cm LVOT Doppler LVOT Peak Gradient 2 mmHg LVOT Mean Gradient 1 mmHg LVOT VTI 15 cm LVOT VTI/AV VTI Ratio 0.7 LVOT Stroke Volume 41 ml LVOT CO 2.6 l/min LVOT CI 1.6 l/min/m2 Pulmonic Valve Name Value Normal RVOT Doppler RVOT Peak Gradient 1 mmHg PV Doppler PV Peak Gradient 3 mmHg Mitral Valve Name Value Normal MV Doppler MV Peak Gradient 7 mmHg MV Mean Gradient 2 mmHg MV Decel Braxton 985 cm/s2 MV PHT 39 ms MV Area (PHT) 5.7 cm2 4.0-5.0 MV Area (Cont Eq VTI) 1.8 cm2 MV Diastolic Function MV E Peak Velocity 132 cm/s MV A Peak Velocity 1 cm/s MV E/A 146.1 MV Decel Time 134 ms MV Annular TDI MV E/e' (Septal) 31.9 <=8.0 MV E/e' (Lateral) 12.3 <=8.0 MV E/e' (Average) 22.1 Tricuspid Valve Name Value Normal TV Regurgitation Doppler TR Peak Velocity 349 cm/s TR Peak Gradient 33 mmHg Estimated PAP/RSVP RA Pressure 5 mmHg <=5 PA Systolic Pressure 54 mmHg <36 RV Systolic Pressure 54 mmHg <36 Aorta Name Value Normal Ascending Aorta Ao Root Diameter (MM) 2.8 cm Ao Root Diam Index (MM) 1.7 cm/m2 Aortic Valve Name Value Normal AV Doppler AV Peak Velocity 104 cm/s AV Peak Gradient 3 mmHg AV Mean Gradient 2 mmHg AV VTI 20 cm AV Area (Cont Eq VTI) 2.0 cm2 >=3.0 AV Area (Cont Eq Akin) 2.1 cm2 AV Regurgitation 2D LVOT Area 2.8 cm2 Ventricles Name Value Normal LV Dimensions 2D/MM IVS Diastolic Thickness (2D) 1.0 cm 0.6-1.0 LVID Diastole (2D) 4.2 cm 3.8-5.2 LVIW Diastolic Thickness (2D) 1.0 cm 0.6-0.9 LVID Systole (2D) 2.7 cm 2.2-3.5 LVOT Diameter 1.9 cm LV Mass (2D Cubed) 141.14 g 67.00-162.00 LV Mass Index (2D Cubed) 86 g/m2 43-95 Relative Wall Thickness (2D) 0.49 LV Fractional Shortening/Ejection Fraction 2D/MM LV Fractional Shortening (2D) 34 % 27-45 LV EF (2D Teicholz) 64 % 54-74 LV Diastolic Volume (4C MOD) 30 ml LV EF (4C MOD) 82 % LV Diastolic Volume (2C MOD) 40 ml LV EF (2C MOD) 77 % LV Diastolic Volume (BP MOD) 35 ml 46-106 LV Diastolic Volume Index (BP MOD) 22 ml/m2 29-61 LV Systolic Volume (BP MOD) 7 ml 14-42 LV Systolic Volume Index (BP MOD) 4 ml/m2 8-24 LV EF (BP MOD) 80 % 54-74 LV Diastolic Length (4C) 5.7 cm LV Systolic Length (4C) 4.9 cm LV Stroke Volume (4C MOD) 25 ml Atria Name Value Normal LA Dimensions LA Dimension (MM) 5.8 cm 2.7-3.8 LA Volume (4C A-L) 91 ml LA Volume (BP A-L) 104 ml RA Dimensions RA Area (4C) 17.7 cm2 <=18.0 Report Signatures
[2024-10-22] MEDS: LEVOTHYROXINE SODIUM 50 MCG TABLET PO (05:07)
[2024-10-22 06:00] VITALS: BP 130/71; PULSE 63; RESP 20; TEMP 37.4; O2SAT 93
[2024-10-22 07:36] LABS: Basophils Percent Auto 0.3 % (0.2-1.2); Eosinophils Percent Auto 0.3 % (0-4.4); Hematocrit 37.2 % (37.0-47.0); Hemoglobin 11.8 g/dL (12.0-15.0); Immature Granulocyte Absolute 0.09 K/mm3 (0.00-0.031); Immature Granulocyte Percent A 1.4 % (0-0.5); Lymphocytes Absolute Auto 0.49 K/mm3 (0.9-3.2); Lymphocytes Percent Auto 7.5 % (18.3-44.2); Mean Corpuscular HGB Conc 31.7 g/dl (32-36); Mean Corpuscular Hemoglobin 29.9 pg (26-34); Mean Corpuscular Volume 94.4 fl (80-100); Mean Platelet Volume 10.2 fl (7.4-10.4); Monocytes Absolute Auto 1.3 K/mm3 (0.1-0.6); Monocytes Percent Auto 20.1 % (2.6-8.5); Neutrophils Absolute Auto 4.6 K/mm3 (1.3-6.7); Neutrophils Percent Auto 70.4 % (45.5-73.1); Platelet Count Result 110 k/mm3 (150-375); Red Blood Count 3.94 M/mm3 (4.2-5.4); Red Cell Distribution Width 13.2 % (11.5-14.5); White Blood Count 6.5 K/mm3 (4.5-10.0)
[2024-10-22 07:51] LABS: Alanine Aminotransferase 25 U/L (6-35); Albumin Level 4.1 g/dL (3.5-5.1); Alkaline Phosphatase 92 U/L (38-126); Anion Gap 9 mmol/L (4-12); Aspartate Amino Transferase 31 U/L (14-36); Bilirubin,Total 0.8 mg/dL (0.2-1.3); Blood Urea Nitrogen 20 mg/dL (7-17); Carbon Dioxide 22 mmol/L (22-30); Chloride 107 mmol/L (98-107); Estimated CRCL calculation 18 ml/min; Estimated Glomerular Filt Rate 29; Glucose 54 mg/dL (65-110); Potassium 5.6 mmol/L (3.4-5.0); Sodium 138 mmol/L (137-145)
[2024-10-22 08:11] LABS: Glucose Point of Care 66 mg/dl (65-105)
--- NOTE | 2024-10-22 08:40 | P.PNIM_ITS ---
Progress Note: A&P Assessment and Plan (1) PRANAY (acute kidney injury): Code(s): N17.9 - Acute kidney failure, unspecified Status: Acute Assessment and Plan: Improving * Creatinine 2.60 on admission. * Encourage oral intake. * Monitor renal function. (2) Hyperkalemia: Code(s): E87.5 - Hyperkalemia Status: Acute Assessment and Plan: Lokelma 20 IV Lasix x1 Repeat BMP (3) Diabetes: Code(s): E11.9 - Type 2 diabetes mellitus without complications Status: Acute Assessment and Plan: Hypoglycemia admission * Hypoglycemic protocol. * SSI * HgbA1C 6.1%. * Hold home metformin and glimepiride. * Continue Jardiance 10 mg PO daily. * Started on D5 NS hypoglycemia (4) Paroxysmal atrial fibrillation: Code(s): I48.0 - Paroxysmal atrial fibrillation Status: Acute Assessment and Plan: * Apixaban 2.5 mg PO BID * Metoprolol Succinate 50 mg PO daily. (5) Right-sided heart failure: Code(s): I50.810 - Right heart failure, unspecified Status: Acute Assessment and Plan: * Spironolactone 25 mg PO daily. * Jardiance 10 mg Po daily. * Metoprolol Succinate 50 mg PO daily. * Lasix x1 this morning * Echo pending (6) Weakness: Code(s): R53.1 - Weakness Status: Acute Assessment and Plan: * PT/OT * UA pending (7) Nausea: Code(s): R11.0 - Nausea Status: Acute Assessment and Plan: * Ondansetron 4 mg ivp q 6 PRN. * Scheduled Reglan (8) Hypertension: Code(s): I10 - Essential (primary) hypertension Status: Acute Assessment and Plan: * Continue Amlodipine 5 mg PO daily. Time Spent With Patient Time with patient: Greater than 35 minutes Subjective Date/time seen: 10/22/24 08:40 Interval history: 83 year old female that came to the ER with low blood sugars and weakness. Patient hypoglycemic this morning started on D5 NS, potassium 5.6 this morning, pulmonary edema seen on chest x-ray will order echo Review of Systems Review of Systems: All systems reviewed & are unremarkable except as noted in HPI and below Exam Narrative: General: well appearing, appears stated age. HEENT: normocephalic, atraumatic. Mucous membranes moist. EOMI, PERRLA, bilateral sclera anicteric, no conjunctival injection. Neck supple without JVD, lymphadenopathy, or bruit. Respiratory: clear to ascultation bilaterally. No rales/rhonic/wheezes. Cardiovascular: Regular rate and rhythm, normal S1-S2 upon ascultation. No murmurs, rubs, or clicks. PMI is nondisplaced, capillary refill less than 3 second. Abdomen: Soft, round, no pulsatile masses, nondistended and nontender. No rebound, no guarding. No CVA tenderness, no hepatosplenomegaly. Bowel sounds present to all four quadrants. No high pitch or tinkling sounds, resonant to percussion. Extremities: No cyanosis, clubbing, or edema present. Pulses are palpable 2/2. 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 PERRLA. Cranial nerves 2-12 intact without focal deficit. Skin: Warm, dry, and intact, without rash, erythema, or lesion. Psych: pleasant, cooperative, normal speech, normal affect, no hallucinations, no dysarthia Objective Data Vital Signs Vital Signs: Vital Signs - 24 hr 10/21/24 08:58 10/21/24 09:01 10/21/24 09:01 Temperature Pulse Rate 68 69 Respiratory Rate 16 16 28 H Blood Pressure Pulse Oximetry 98 96 100 Oxygen Delivery Oxygen Flow Rate 2 10/21/24 09:34 10/21/24 10:15 10/21/24 11:00 Temperature 97.1 F L Pulse Rate 71 81 Respiratory Rate 18 16 Blood Pressure 111/61 142/82 H Pulse Oximetry 97 100 93 Oxygen Delivery Room Air Oxygen Flow Rate 10/21/24 14:00 10/21/24 22:00 10/22/24 06:00 Temperature 98.5 F 100.2 F H 99.4 F Pulse Rate 62 77 63 Respiratory Rate 14 16 20 Blood Pressure 117/59 L 117/48 L 130/71 Pulse Oximetry 100 94 93 Oxygen Delivery Oxygen Flow Rate Intake/Output Intake/Output: Intake & Output 10/19/24 10/20/24 10/21/24 10/22/24 23:59 23:59 23:59 23:59 Intake Total 1000 1360.0 100 Output Total 75 Balance 925 1360.0 100 Meds/Results Medications: Active Medications Generic Name Dose Route Start Last Admin Trade Name Freq PRN Reason Stop Dose Admin Albuterol 2 puff 10/21/24 10:05 Albuterol Sulfate (*Sp) Aerosol 1 Puff INHALATION Q4H PRN Shortness Of Breath Amlodipine Besylate 5 mg 10/22/24 09:00 Amlodipine Besylate 5 Mg Tablet PO QAM [facility] Apixaban 2.5 mg 10/21/24 21:00 10/21/24 21:05 Apixaban 2.5 Mg Tablet PO 2.5 mg Q12HR [facility] Administration Atorvastatin Calcium 80 mg 10/22/24 09:00 Atorvastatin 40 Mg Tablet PO DAILY [facility] Dextrose 12.5 gm 10/21/24 00:10 10/21/24 08:05 Dextrose 50% 25 Gm/50 Ml Syringe IV PUSH 12.5 gm PRN PRN Administration Hypoglycemia Protocol Docusate Sodium 100 mg 10/21/24 17:00 10/21/24 18:54 Docusate Sodium 100 Mg Capsule PO 100 mg BID [facility] Administration Empagliflozin 10 mg 10/22/24 09:00 Empagliflozin 10 Mg Tablet PO DAILY [facility] Fluoxetine HCl 20 mg 10/22/24 09:00 Fluoxetine Hcl 20 Mg Capsule PO DAILY [facility] Glucagon 1 mg 10/21/24 00:10 Glucagon For Inj 1 Mg Vial IM PRN PRN Hypoglycemia Protocol Glucose 15 gm 10/21/24 00:10 Glucose Oral Gel 15 Gm Of Glucse In 37.5 Gm Tube PO PRN PRN Hypoglycemia Protocol Dextrose 1,000 mls @ 100 mls/hr 10/21/24 00:10 Dextrose 5% 1,000 Ml IVPB PRN PRN Hypoglycemia Protocol Insulin Aspart 2 - 5 units 10/21/24 08:00 10/21/24 18:53 Insulin Aspart (*Bkc) 100 Units/Ml SUB-Q Not Given TIDWM [facility] Protocol Levothyroxine Sodium 50 mcg 10/22/24 06:30 10/22/24 05:07 Levothyroxine Sodium 50 Mcg Tablet PO 50 mcg DAILY@0630 [facility] Administration Magnesium Citrate 300 ml 10/21/24 10:05 Magnesium Citrate 300 Ml Btl PO ONCE PRN constipation Metoprolol Succinate 50 mg 10/22/24 09:00 Metoprolol Succinate Ext Rel 50 Mg Tabcr PO DAILY [facility] Ondansetron HCl 4 mg 10/21/24 14:20 Ondansetron Inj 4 Mg/2 Ml Vial IV PUSH Q6H PRN Nausea And Vomiting Phenyleph/Shark Oil/Min Oil/Petrol 1 applic 10/21/24 09:00 10/21/24 16:17 Phenyleph/Shark Oil/Mo/Petrol Cream 26 Gm RECTAL Not Given DAILY [facility] Spironolactone 25 mg 10/22/24 09:00 Spironolactone 25 Mg Tablet PO DAILY [facility] Radiology Results: ITS Impressions Chest X-Ray 10/21/24 07:54 Impression: Central congestive change and mild to moderate probable pulmonary edema pattern. Correlate clinically for pneumonia. Labs Labs: Laboratory Results - last 24 hr 10/21/24 10/21/24 10/21/24 08:15 11:52 16:54 WBC RBC Hgb Hct MCV MCH MCHC RDW Plt Count MPV Immature Gran % (Auto) Neut % (Auto) Lymph % (Auto) [place] % (Auto) Eos % (Auto) Baso % (Auto) Lymph # (Auto) [place] # (Auto) Eos # (Auto) Baso # (Auto) Abs Immat Gran (auto) Absolute Neuts (auto) Absolute Nucleated RBC Nucleated RBC % % Immature Plt Fraction Sodium 137 Potassium 4.5 Chloride 108 H Carbon Dioxide 17 L Anion Gap 12 BUN 25 H Creatinine 1.95 H Estim Creat Clear Calc 16 Estimated GFR 25 L Glucose 107 POC Capillary Glucose 101 64 L Calcium 8.5 Phosphorus 3.7 Magnesium 1.8 Total Bilirubin 0.5 AST 30 ALT 23 Alkaline Phosphatase 82 Total Protein 7.0 Albumin 3.9 10/21/24 10/21/24 10/22/24 17:50 21:54 07:12 WBC 6.5 RBC 3.94 L Hgb 11.8 L Hct 37.2 MCV 94.4 D MCH 29.9 MCHC 31.7 L RDW 13.2 Plt Count 110 L MPV 10.2 Immature Gran % (Auto) 1.4 H Neut % (Auto) 70.4 Lymph % (Auto) 7.5 L [place] % (Auto) 20.1 H Eos % (Auto) 0.3 Baso % (Auto) 0.3 Lymph # (Auto) 0.49 L [place] # (Auto) 1.3 H Eos # (Auto) 0.0 Baso # (Auto) 0.0 Abs Immat Gran (auto) 0.09 H Absolute Neuts (auto) 4.6 Absolute Nucleated RBC 0.000 Nucleated RBC % 0.0 % Immature Plt Fraction 3.0 Sodium 138 Potassium 5.6 H Chloride 107 Carbon Dioxide 22 Anion Gap 9 BUN 20 H Creatinine 1.68 H Estim Creat Clear Calc 18 Estimated GFR 29 L Glucose 54 L* POC Capillary Glucose 107 H 80 Calcium 9.0 Phosphorus Magnesium Total Bilirubin 0.8 AST 31 ALT 25 Alkaline Phosphatase 92 Total Protein 7.0 Albumin 4.1 10/22/24 08:08 WBC RBC Hgb Hct MCV MCH MCHC RDW Plt Count MPV Immature Gran % (Auto) Neut % (Auto) Lymph % (Auto) [place] % (Auto) Eos % (Auto) Baso % (Auto) Lymph # (Auto) [place] # (Auto) Eos # (Auto) Baso # (Auto) Abs Immat Gran (auto) Absolute Neuts (auto) Absolute Nucleated RBC Nucleated RBC % % Immature Plt Fraction Sodium Potassium Chloride Carbon Dioxide Anion Gap BUN Creatinine Estim Creat Clear Calc Estimated GFR Glucose POC Capillary Glucose 66 Calcium Phosphorus Magnesium Total Bilirubin AST ALT Alkaline Phosphatase Total Protein Albumin Quality VTE Prophylaxis VTE prophylaxis: pharmacologic ordered
[2024-10-22 08:50] LABS: Glucose Point of Care 174 mg/dl (65-105)
[2024-10-22] MEDS: DEXTROSE 5%/0.9% SOD CHL 1,000 ML 40 ML IV CONT (09:41)
[2024-10-22] MEDS: FUROSEMIDE INJ 40 MG/4 ML VIAL 20 MG IV PUSH (09:42)
[2024-10-22] MEDS: SODIUM ZIRCONIUM CYCLOSILICATE 10 GM POWD.PACK PO (09:42)
[2024-10-22] MEDS: CALCIUM GLUC 1,000 MG/NS 50 ML 1,000 MG/50 ML BAG 100 MG IVPB (09:42)
[2024-10-22 09:47] VITALS: PULSE 68
[2024-10-22] MEDS: METOPROLOL SUCCINATE EXT REL 50 MG TABCR PO (09:47)
[2024-10-22] MEDS: SPIRONOLACTONE 25 MG TABLET PO (09:48)
[2024-10-22] MEDS: APIXABAN 2.5 MG TABLET PO ×2 (09:48→21:56)
[2024-10-22] MEDS: DOCUSATE SODIUM 100 MG CAPSULE PO (09:48)
[2024-10-22] MEDS: amLODIPine BESYLATE 5 MG TABLET PO (09:48)
[2024-10-22] MEDS: FLUoxetine HCL 20 MG CAPSULE PO (09:48)
[2024-10-22] MEDS: ATORVASTATIN 40 MG TABLET 80 MG PO (10:50)
[2024-10-22 11:36] LABS: Glucose Point of Care 145 mg/dl (65-105)
[2024-10-22 12:22] LABS: Anion Gap 11 mmol/L (4-12); Blood Urea Nitrogen 20 mg/dL (7-17); Calcium 9.4 mg/dL (8.4-10.2); Carbon Dioxide 21 mmol/L (22-30); Chloride 105 mmol/L (98-107); Estimated CRCL calculation 18 ml/min; Estimated Glomerular Filt Rate 28; Glucose 133 mg/dL (65-110); Potassium 4.9 mmol/L (3.4-5.0); Sodium 137 mmol/L (137-145)
[2024-10-22 14:00] VITALS: BP 111/53; PULSE 74; RESP 18; TEMP 38.2; O2SAT 93
[2024-10-22 14:55] VITALS: BMI 24.5
[2024-10-22 16:53] LABS: Glucose Point of Care 159 mg/dl (65-105)
[2024-10-22 21:07] LABS: Glucose Point of Care 449 mg/dl (65-105)
[2024-10-22 21:16] VITALS: BP 156/84; PULSE 68; RESP 20; TEMP 37.8; O2SAT 92
[2024-10-22 22:16] LABS: Add Urine Microscopic? YES; Appearance Urine Clear (Clear); Bacteria Urine None Seen /hpf; Bilirubin Urine Negative (Negative); Blood Urine Negative (Negative); Color Urine Yellow (Yellow); Glucose Urine UA 3+ mg/dL (Negative); Ketones Urine Negative (Negative); Leukocyte Esterase Ur Negative LEU/UL (Negative); Nitrate Urine Negative (Negative); Non Pathogenic Casts 0-2; Protein Urine 2+ mg/dL (Negative); RBC Urine 0-2 /hpf (0-2); Specific Grav Ur 1.019 (1.001-1.035); Squamous Epithelial Cell Urine None Seen /hpf (Few); WBC Urine 0-5 /hpf (0-3)
[2024-10-22 22:30] LABS: Glucose Point of Care 175 mg/dl (65-105)
[2024-10-22] MEDS: METOCLOPRAMIDE HCL INJ 10 MG/2 ML VIAL 5 MG IV PUSH (23:41)
[2024-10-23 00:25] LABS: Glucose Point of Care 148 mg/dl (65-105)
[2024-10-23 00:35] LABS: Influenza A QL RT-PCR Negative (Negative); Influenza B QL RT-PCR Negative (Negative); SARS-CoV-2 RNA PCR Negative (Negative)
[2024-10-23 03:43] LABS: Glucose Point of Care 163 mg/dl (65-105)
[2024-10-23 05:47] VITALS: BP 117/66; PULSE 81; RESP 18; TEMP 37.7; O2SAT 93
[2024-10-23] MEDS: LEVOTHYROXINE SODIUM 50 MCG TABLET PO (06:13)
[2024-10-23] MEDS: METOCLOPRAMIDE HCL INJ 10 MG/2 ML VIAL 5 MG IV PUSH ×4 (06:14→23:08)
[2024-10-23 07:18] LABS: Basophils Percent Auto 0.4 % (0.2-1.2); Eosinophils Percent Auto 0.6 % (0-4.4); Hematocrit 35.7 % (37.0-47.0); Hemoglobin 11.9 g/dL (12.0-15.0); Immature Granulocyte Absolute 0.08 K/mm3 (0.00-0.031); Immature Granulocyte Percent A 1.2 % (0-0.5); Immature Platelet Fraction Pct 3.3 % (0.9-11.2); Lymphocytes Absolute Auto 0.66 K/mm3 (0.9-3.2); Lymphocytes Percent Auto 9.8 % (18.3-44.2); Mean Corpuscular HGB Conc 33.3 g/dl (32-36); Mean Platelet Volume 10.5 fl (7.4-10.4); Monocytes Absolute Auto 1.6 K/mm3 (0.1-0.6); Monocytes Percent Auto 23.7 % (2.6-8.5); Neutrophils Absolute Auto 4.3 K/mm3 (1.3-6.7); Neutrophils Percent Auto 64.3 % (45.5-73.1); Platelet Count Result 105 k/mm3 (150-375); Red Blood Count 3.84 M/mm3 (4.2-5.4); White Blood Count 6.7 K/mm3 (4.5-10.0)
[2024-10-23 07:34] LABS: Alanine Aminotransferase 23 U/L (6-35); Albumin Level 3.9 g/dL (3.5-5.1); Alkaline Phosphatase 95 U/L (38-126); Anion Gap 10 mmol/L (4-12); Aspartate Amino Transferase 27 U/L (14-36); Bilirubin,Total 1.1 mg/dL (0.2-1.3); Blood Urea Nitrogen 18 mg/dL (7-17); Calcium 8.9 mg/dL (8.4-10.2); Carbon Dioxide 22 mmol/L (22-30); Chloride 104 mmol/L (98-107); Estimated CRCL calculation 21 ml/min; Estimated Glomerular Filt Rate 34; Glucose 109 mg/dL (65-110); Potassium 4.4 mmol/L (3.4-5.0); Sodium 136 mmol/L (137-145)
[2024-10-23 08:04] LABS: Glucose Point of Care 150 mg/dl (65-105)
--- NOTE | 2024-10-23 08:11 | P.PNIM_ITS ---
Progress Note: A&P Assessment and Plan (1) PRANAY (acute kidney injury): Code(s): N17.9 - Acute kidney failure, unspecified Status: Acute Assessment and Plan: Improving * Creatinine 2.60 on admission. * Encourage oral intake. * Monitor renal function. (2) Hyperkalemia: Code(s): E87.5 - Hyperkalemia Status: Acute Assessment and Plan: Improved Lokelma 20 IV Lasix x1 Repeat BMP (3) Diabetes: Code(s): E11.9 - Type 2 diabetes mellitus without complications Status: Acute Assessment and Plan: Hypoglycemia on admission * Hypoglycemic protocol. * SSI * HgbA1C 6.1%. * Hold home metformin and glimepiride. * Continue Jardiance 10 mg PO daily. (4) Paroxysmal atrial fibrillation: Code(s): I48.0 - Paroxysmal atrial fibrillation Status: Acute Assessment and Plan: * Apixaban 2.5 mg PO BID * Metoprolol Succinate 50 mg PO daily. (5) Right-sided heart failure: Code(s): I50.810 - Right heart failure, unspecified Status: Acute Assessment and Plan: * Spironolactone 25 mg PO daily. * Jardiance 10 mg Po daily. * Metoprolol Succinate 50 mg PO daily. * Lasix x1 this morning * Echo 65-70% (6) Weakness: Code(s): R53.1 - Weakness Status: Acute Assessment and Plan: * PT/OT * UA noninfected (7) Nausea: Code(s): R11.0 - Nausea Status: Acute Assessment and Plan: * Ondansetron 4 mg ivp q 6 PRN. * Scheduled Reglan (8) Hypertension: Code(s): I10 - Essential (primary) hypertension Status: Acute Assessment and Plan: * Continue Amlodipine 5 mg PO daily. (9) Pneumonia: Code(s): J18.9 - Pneumonia, unspecified organism Status: Acute Assessment and Plan: Started on azithromycin and Rocephin Time Spent With Patient Time with patient: Greater than 35 minutes Subjective Date/time seen: 10/23/24 08:11 Interval history: 83 year old female that came to the ER with low blood sugars and weakness. Chest x-ray shows likely pneumonia versus pulmonary edema, echocardiogram 65-70% patient started on antibiotics for pneumonia Review of Systems Review of Systems: All systems reviewed & are unremarkable except as noted in HPI and below Exam Narrative: General: well appearing, appears stated age. HEENT: normocephalic, atraumatic. Mucous membranes moist. EOMI, PERRLA, bilateral sclera anicteric, no conjunctival injection. Neck supple without JVD, lymphadenopathy, or bruit. Respiratory: clear to ascultation bilaterally. No rales/rhonic/wheezes. Cardiovascular: Regular rate and rhythm, normal S1-S2 upon ascultation. No murmurs, rubs, or clicks. PMI is nondisplaced, capillary refill less than 3 second. Abdomen: Soft, round, no pulsatile masses, nondistended and nontender. No rebound, no guarding. No CVA tenderness, no hepatosplenomegaly. Bowel sounds present to all four quadrants. No high pitch or tinkling sounds, resonant to percussion. Extremities: No cyanosis, clubbing, or edema present. Pulses are palpable 2/2. 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 PERRLA. Cranial nerves 2-12 intact without focal deficit. Skin: Warm, dry, and intact, without rash, erythema, or lesion. Psych: pleasant, cooperative, normal speech, normal affect, no hallucinations, no dysarthia Objective Data Vital Signs Vital Signs: Vital Signs - 24 hr 10/22/24 09:47 10/22/24 14:00 10/22/24 20:00 Temperature 100.7 F H Pulse Rate 68 74 Respiratory Rate 18 Blood Pressure 111/53 L Pulse Oximetry 93 Oxygen Delivery Room Air 10/22/24 21:16 10/23/24 05:47 Temperature 100.1 F H 99.8 F H Pulse Rate 68 81 Respiratory Rate 20 18 Blood Pressure 156/84 H 117/66 Pulse Oximetry 92 93 Oxygen Delivery Intake/Output Intake/Output: Intake & Output 10/20/24 10/21/24 10/22/24 10/23/24 23:59 23:59 23:59 23:59 Intake Total 1000 1360.0 820 200 Output Total 75 400 Balance 925 1360.0 820 -200 Meds/Results Medications: Active Medications Generic Name Dose Route Start Last Admin Trade Name Freq PRN Reason Stop Dose Admin Albuterol 2 puff 10/21/24 10:05 Albuterol Sulfate (*Sp) Aerosol 1 Puff INHALATION Q4H PRN Shortness Of Breath Amlodipine Besylate 5 mg 10/22/24 09:00 10/22/24 09:48 Amlodipine Besylate 5 Mg Tablet PO 5 mg QAM ORLY Administration Apixaban 2.5 mg 10/21/24 21:00 10/22/24 21:56 Apixaban 2.5 Mg Tablet PO 2.5 mg Q12HR ORLY Administration Atorvastatin Calcium 80 mg 10/22/24 09:00 10/22/24 10:50 Atorvastatin 40 Mg Tablet PO 80 mg DAILY ORLY Administration Dextrose 12.5 gm 10/21/24 00:10 10/21/24 08:05 Dextrose 50% 25 Gm/50 Ml Syringe IV PUSH 12.5 gm PRN PRN Administration Hypoglycemia Protocol Docusate Sodium 100 mg 10/21/24 17:00 10/22/24 20:33 Docusate Sodium 100 Mg Capsule PO Not Given BID [facility] Empagliflozin 10 mg 10/22/24 09:00 10/22/24 09:49 Empagliflozin 10 Mg Tablet PO Not Given DAILY [facility] Fluoxetine HCl 20 mg 10/22/24 09:00 10/22/24 09:48 Fluoxetine Hcl 20 Mg Capsule PO 20 mg DAILY ORLY Administration Glucagon 1 mg 10/21/24 00:10 Glucagon For Inj 1 Mg Vial IM PRN PRN Hypoglycemia Protocol Glucose 15 gm 10/21/24 00:10 Glucose Oral Gel 15 Gm Of Glucse In 37.5 Gm Tube PO PRN PRN Hypoglycemia Protocol Dextrose 1,000 mls @ 100 mls/hr 10/21/24 00:10 Dextrose 5% 1,000 Ml IVPB PRN PRN Hypoglycemia Protocol Insulin Aspart 2 - 5 units 10/21/24 08:00 10/22/24 20:32 Insulin Aspart (*Bkc) 100 Units/Ml SUB-Q Not Given TIDWM [facility] Protocol Levothyroxine Sodium 50 mcg 10/22/24 06:30 10/23/24 06:13 Levothyroxine Sodium 50 Mcg Tablet PO 50 mcg DAILY@0630 ORLY Administration Magnesium Citrate 300 ml 10/21/24 10:05 Magnesium Citrate 300 Ml Btl PO ONCE PRN constipation Metoclopramide HCl 5 mg 10/22/24 12:00 10/23/24 06:14 Metoclopramide Hcl Inj 10 Mg/2 Ml Vial IV PUSH 5 mg Q6HR ORLY Administration Metoprolol Succinate 50 mg 10/22/24 09:00 10/22/24 09:47 Metoprolol Succinate Ext Rel 50 Mg Tabcr PO 50 mg DAILY ORLY Administration Ondansetron HCl 4 mg 10/21/24 14:20 Ondansetron Inj 4 Mg/2 Ml Vial IV PUSH Q6H PRN Nausea And Vomiting Perflutren Lipid Microsphere 0 ml 10/22/24 15:21 Perflutren Lipid Microspheres 1.5 Ml Vial Diluted To 10 Ml Total Volume IV PUSH 10/25/24 15:21 ONCE PRN adequate visualization Protocol Phenyleph/Shark Oil/Min Oil/Petrol 1 applic 10/21/24 09:00 10/22/24 20:33 Phenyleph/Shark Oil/Mo/Petrol Cream 26 Gm RECTAL Not Given DAILY ORLY Spironolactone 25 mg 10/22/24 09:00 10/22/24 09:48 Spironolactone 25 Mg Tablet PO 25 mg DAILY ORLY Administration Radiology Results: ITS Impressions Chest X-Ray 10/21/24 07:54 Impression: Central congestive change and mild to moderate probable pulmonary edema pattern. Correlate clinically for pneumonia. Labs Labs: Laboratory Results - last 24 hr 10/22/24 10/22/24 10/22/24 07:12 08:08 08:47 WBC 6.5 RBC 3.94 L Hgb 11.8 L Hct 37.2 MCV 94.4 D MCH 29.9 MCHC 31.7 L RDW 13.2 Plt Count 110 L MPV 10.2 Immature Gran % (Auto) 1.4 H Neut % (Auto) 70.4 Lymph % (Auto) 7.5 L [place] % (Auto) 20.1 H Eos % (Auto) 0.3 Baso % (Auto) 0.3 Lymph # (Auto) 0.49 L [place] # (Auto) 1.3 H Eos # (Auto) 0.0 Baso # (Auto) 0.0 Abs Immat Gran (auto) 0.09 H Absolute Neuts (auto) 4.6 Absolute Nucleated RBC 0.000 Nucleated RBC % 0.0 % Immature Plt Fraction 3.0 Sodium Potassium Chloride Carbon Dioxide Anion Gap BUN Creatinine Estim Creat Clear Calc Estimated GFR Glucose POC Capillary Glucose 66 174 H Calcium Total Bilirubin AST ALT Alkaline Phosphatase Total Protein Albumin Urine Color Urine Appearance Urine pH Ur Specific [place] Urine Protein Urine Glucose (UA) Urine Ketones Ur Blood (Man) Urine Nitrate Urine Bilirubin Urine Urobilinogen Ur Leukocyte Esterase Urine RBC Urine WBC Ur Squamous Epith Cells Urine Bacteria Urine Casts Influenza A (RT-PCR) Influenza B (RT-PCR) SARS-CoV-2 RNA (RT-PCR) 10/22/24 10/22/24 10/22/24 11:33 12:02 16:38 WBC RBC Hgb Hct MCV MCH MCHC RDW Plt Count MPV Immature Gran % (Auto) Neut % (Auto) Lymph % (Auto) [place] % (Auto) Eos % (Auto) Baso % (Auto) Lymph # (Auto) [place] # (Auto) Eos # (Auto) Baso # (Auto) Abs Immat Gran (auto) Absolute Neuts (auto) Absolute Nucleated RBC Nucleated RBC % % Immature Plt Fraction Sodium 137 Potassium 4.9 Chloride 105 Carbon Dioxide 21 L Anion Gap 11 BUN 20 H Creatinine 1.74 H Estim Creat Clear Calc 18 Estimated GFR 28 L Glucose 133 H POC Capillary Glucose 145 H 159 H Calcium 9.4 Total Bilirubin AST ALT Alkaline Phosphatase Total Protein Albumin Urine Color Urine Appearance Urine pH Ur Specific [place] Urine Protein Urine Glucose (UA) Urine Ketones Ur Blood (Man) Urine Nitrate Urine Bilirubin Urine Urobilinogen Ur Leukocyte Esterase Urine RBC Urine WBC Ur Squamous Epith Cells Urine Bacteria Urine Casts Influenza A (RT-PCR) Influenza B (RT-PCR) SARS-CoV-2 RNA (RT-PCR) 10/22/24 10/22/24 10/22/24 19:54 21:54 22:26 WBC RBC Hgb Hct MCV MCH MCHC RDW Plt Count MPV Immature Gran % (Auto) Neut % (Auto) Lymph % (Auto) [place] % (Auto) Eos % (Auto) Baso % (Auto) Lymph # (Auto) [place] # (Auto) Eos # (Auto) Baso # (Auto) Abs Immat Gran (auto) Absolute Neuts (auto) Absolute Nucleated RBC Nucleated RBC % % Immature Plt Fraction Sodium Potassium Chloride Carbon Dioxide Anion Gap BUN Creatinine Estim Creat Clear Calc Estimated GFR Glucose POC Capillary Glucose 449 H 175 H Calcium Total Bilirubin AST ALT Alkaline Phosphatase Total Protein Albumin Urine Color Yellow Urine Appearance Clear Urine pH 6.0 Ur Specific [place] 1.019 Urine Protein 2+ H Urine Glucose (UA) 3+ H Urine Ketones Negative Ur Blood (Man) Negative Urine Nitrate Negative Urine Bilirubin Negative Urine Urobilinogen 1.0 Ur Leukocyte Esterase Negative Urine RBC 0-2 Urine WBC 0-5 Ur Squamous Epith Cells None seen Urine Bacteria None seen Urine Casts 0-2 Influenza A (RT-PCR) Influenza B (RT-PCR) SARS-CoV-2 RNA (RT-PCR) 10/22/24 10/23/24 10/23/24 23:54 00:23 03:39 WBC RBC Hgb Hct MCV MCH MCHC RDW Plt Count MPV Immature Gran % (Auto) Neut % (Auto) Lymph % (Auto) [place] % (Auto) Eos % (Auto) Baso % (Auto) Lymph # (Auto) [place] # (Auto) Eos # (Auto) Baso # (Auto) Abs Immat Gran (auto) Absolute Neuts (auto) Absolute Nucleated RBC Nucleated RBC % % Immature Plt Fraction Sodium Potassium Chloride Carbon Dioxide Anion Gap BUN Creatinine Estim Creat Clear Calc Estimated GFR Glucose POC Capillary Glucose 148 H 163 H Calcium Total Bilirubin AST ALT Alkaline Phosphatase Total Protein Albumin Urine Color Urine Appearance Urine pH Ur Specific [place] Urine Protein Urine Glucose (UA) Urine Ketones Ur Blood (Man) Urine Nitrate Urine Bilirubin Urine Urobilinogen Ur Leukocyte Esterase Urine RBC Urine WBC Ur Squamous Epith Cells Urine Bacteria Urine Casts Influenza A (RT-PCR) Negative Influenza B (RT-PCR) Negative SARS-CoV-2 RNA (RT-PCR) Negative 10/23/24 10/23/24 06:43 08:00 WBC RBC Hgb Hct MCV MCH MCHC RDW Plt Count MPV Immature Gran % (Auto) Neut % (Auto) Lymph % (Auto) [place] % (Auto) Eos % (Auto) Baso % (Auto) Lymph # (Auto) [place] # (Auto) Eos # (Auto) Baso # (Auto) Abs Immat Gran (auto) Absolute Neuts (auto) Absolute Nucleated RBC Nucleated RBC % % Immature Plt Fraction Sodium 136 L Potassium 4.4 Chloride 104 Carbon Dioxide 22 Anion Gap 10 BUN 18 H Creatinine 1.45 H Estim Creat Clear Calc 21 Estimated GFR 34 L Glucose 109 POC Capillary Glucose 150 H Calcium 8.9 Total Bilirubin 1.1 AST 27 ALT 23 Alkaline Phosphatase 95 Total Protein 7.0 Albumin 3.9 Urine Color Urine Appearance Urine pH Ur Specific [place] Urine Protein Urine Glucose (UA) Urine Ketones Ur Blood (Man) Urine Nitrate Urine Bilirubin Urine Urobilinogen Ur Leukocyte Esterase Urine RBC Urine WBC Ur Squamous Epith Cells Urine Bacteria Urine Casts Influenza A (RT-PCR) Influenza B (RT-PCR) SARS-CoV-2 RNA (RT-PCR) Quality VTE Prophylaxis VTE prophylaxis: pharmacologic ordered
[2024-10-23 09:13] VITALS: PULSE 72
[2024-10-23] MEDS: DOCUSATE SODIUM 100 MG CAPSULE PO ×2 (09:13→17:21)
[2024-10-23] MEDS: amLODIPine BESYLATE 5 MG TABLET PO (09:13)
[2024-10-23] MEDS: EMPAGLIFLOZIN 10 MG TABLET PO (09:13)
[2024-10-23] MEDS: METOPROLOL SUCCINATE EXT REL 50 MG TABCR PO (09:13)
[2024-10-23] MEDS: APIXABAN 2.5 MG TABLET PO ×2 (09:14→20:40)
[2024-10-23] MEDS: SPIRONOLACTONE 25 MG TABLET PO (09:14)
[2024-10-23] MEDS: FLUoxetine HCL 20 MG CAPSULE PO (09:14)
[2024-10-23] MEDS: ATORVASTATIN 40 MG TABLET 80 MG PO (09:28)
[2024-10-23] MEDS: AZITHROMYCIN 500 MG/NS 250 ML 500 MG/250 ML BAG 250 MG IVPB (11:33)
[2024-10-23 11:35] LABS: Glucose Point of Care 174 mg/dl (65-105)
[2024-10-23 14:00] VITALS: BP 107/65; PULSE 68; RESP 16; TEMP 36.8; O2SAT 93
[2024-10-23 16:53] LABS: Glucose Point of Care 140 mg/dl (65-105)
[2024-10-23 22:00] VITALS: BP 133/73; PULSE 74; RESP 16; TEMP 36.6; O2SAT 94
[2024-10-23 22:04] VITALS: O2SAT 94
[2024-10-23 22:49] LABS: Glucose Point of Care 126 mg/dl (65-105)
[2024-10-24] MEDS: LEVOTHYROXINE SODIUM 50 MCG TABLET PO (05:31)
[2024-10-24] MEDS: METOCLOPRAMIDE HCL INJ 10 MG/2 ML VIAL 5 MG IV PUSH (05:35)
[2024-10-24 06:00] VITALS: BP 141/60; PULSE 78; RESP 16; TEMP 36.8; O2SAT 95
[2024-10-24 07:44] LABS: Basophils Percent Auto 0.3 % (0.2-1.2); Eosinophils Absolute Auto 0.1 K/mm3 (0-0.3); Eosinophils Percent Auto 0.8 % (0-4.4); Hematocrit 38.6 % (37.0-47.0); Hemoglobin 12.7 g/dL (12.0-15.0); Immature Granulocyte Absolute 0.09 K/mm3 (0.00-0.031); Immature Granulocyte Percent A 1.4 % (0-0.5); Immature Platelet Fraction Pct 3.4 % (0.9-11.2); Lymphocytes Absolute Auto 0.56 K/mm3 (0.9-3.2); Lymphocytes Percent Auto 8.5 % (18.3-44.2); Mean Corpuscular HGB Conc 32.9 g/dl (32-36); Mean Corpuscular Hemoglobin 30.8 pg (26-34); Mean Corpuscular Volume 93.7 fl (80-100); Mean Platelet Volume 10.1 fl (7.4-10.4); Monocytes Absolute Auto 1.1 K/mm3 (0.1-0.6); Monocytes Percent Auto 17.4 % (2.6-8.5); Neutrophils Absolute Auto 4.7 K/mm3 (1.3-6.7); Neutrophils Percent Auto 71.6 % (45.5-73.1); Platelet Count Result 111 k/mm3 (150-375); Red Blood Count 4.12 M/mm3 (4.2-5.4); White Blood Count 6.6 K/mm3 (4.5-10.0)
[2024-10-24 07:53] LABS: Glucose Point of Care 108 mg/dl (65-105)
[2024-10-24 08:15] LABS: Alanine Aminotransferase 24 U/L (6-35); Alkaline Phosphatase 98 U/L (38-126); Anion Gap 11 mmol/L (4-12); Aspartate Amino Transferase 27 U/L (14-36); Bilirubin,Total 0.9 mg/dL (0.2-1.3); Blood Urea Nitrogen 21 mg/dL (7-17); Carbon Dioxide 20 mmol/L (22-30); Chloride 107 mmol/L (98-107); Estimated CRCL calculation 23 ml/min; Estimated Glomerular Filt Rate 38; Glucose 108 mg/dL (65-110); Potassium 4.8 mmol/L (3.4-5.0); Sodium 138 mmol/L (137-145)
[2024-10-24 08:34] VITALS: PULSE 62
[2024-10-24] MEDS: amLODIPine BESYLATE 5 MG TABLET PO (08:34)
[2024-10-24] MEDS: DOCUSATE SODIUM 100 MG CAPSULE PO (08:34)
[2024-10-24] MEDS: METOPROLOL SUCCINATE EXT REL 50 MG TABCR PO (08:34)
[2024-10-24] MEDS: APIXABAN 2.5 MG TABLET PO (08:36)
[2024-10-24] MEDS: FLUoxetine HCL 20 MG CAPSULE PO (08:36)
[2024-10-24] MEDS: SPIRONOLACTONE 25 MG TABLET PO (08:36)
[2024-10-24] MEDS: ATORVASTATIN 40 MG TABLET 80 MG PO (08:36)
[2024-10-24] MEDS: EMPAGLIFLOZIN 10 MG TABLET PO (08:36)
--- NOTE | 2024-10-24 09:01 | P.PNIM_ITS ---
Progress Note: A&P Assessment and Plan (1) PRANAY (acute kidney injury): Code(s): N17.9 - Acute kidney failure, unspecified Status: Acute Assessment and Plan: Improving * Creatinine 2.60 on admission. * Encourage oral intake. * Monitor renal function. (2) Hyperkalemia: Code(s): E87.5 - Hyperkalemia Status: Acute Assessment and Plan: Improved Lokelma 20 IV Lasix x1 Repeat BMP (3) Diabetes: Code(s): E11.9 - Type 2 diabetes mellitus without complications Status: Acute Assessment and Plan: Hypoglycemia on admission * Hypoglycemic protocol. * SSI * HgbA1C 6.1%. * Hold home metformin and glimepiride. * Continue Jardiance 10 mg PO daily. (4) Paroxysmal atrial fibrillation: Code(s): I48.0 - Paroxysmal atrial fibrillation Status: Acute Assessment and Plan: * Apixaban 2.5 mg PO BID * Metoprolol Succinate 50 mg PO daily. (5) Right-sided heart failure: Code(s): I50.810 - Right heart failure, unspecified Status: Acute Assessment and Plan: * Spironolactone 25 mg PO daily. * Jardiance 10 mg Po daily. * Metoprolol Succinate 50 mg PO daily. * Lasix x1 this morning * Echo 65-70% (6) Weakness: Code(s): R53.1 - Weakness Status: Acute Assessment and Plan: * PT/OT * UA noninfected (7) Nausea: Code(s): R11.0 - Nausea Status: Acute Assessment and Plan: * Ondansetron 4 mg ivp q 6 PRN. * Scheduled Reglan (8) Hypertension: Code(s): I10 - Essential (primary) hypertension Status: Acute Assessment and Plan: * Continue Amlodipine 5 mg PO daily. (9) Pneumonia: Code(s): J18.9 - Pneumonia, unspecified organism Status: Acute Assessment and Plan: Started on azithromycin and Rocephin Subjective Date/time seen: 10/24/24 09:01 Interval history: 83 year old female that came to the ER with low blood sugars and weakness. Chest x-ray shows likely pneumonia versus pulmonary edema, echocardiogram 65-70% patient started on antibiotics for pneumonia Review of Systems Review of Systems: All systems reviewed & are unremarkable except as noted in HPI and below Exam Narrative: General: well appearing, appears stated age. HEENT: normocephalic, atraumatic. Mucous membranes moist. EOMI, PERRLA, bilateral sclera anicteric, no conjunctival injection. Neck supple without JVD, lymphadenopathy, or bruit. Respiratory: clear to ascultation bilaterally. No rales/rhonic/wheezes. Cardiovascular: Regular rate and rhythm, normal S1-S2 upon ascultation. No murmurs, rubs, or clicks. PMI is nondisplaced, capillary refill less than 3 second. Abdomen: Soft, round, no pulsatile masses, nondistended and nontender. No rebound, no guarding. No CVA tenderness, no hepatosplenomegaly. Bowel sounds present to all four quadrants. No high pitch or tinkling sounds, resonant to percussion. Extremities: No cyanosis, clubbing, or edema present. Pulses are palpable 2/2. 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 PERRLA. Cranial nerves 2-12 intact without focal deficit. Skin: Warm, dry, and intact, without rash, erythema, or lesion. Psych: pleasant, cooperative, normal speech, normal affect, no hallucinations, no dysarthia Objective Data Vital Signs Vital Signs: Vital Signs - 24 hr 10/23/24 09:13 10/23/24 09:15 10/23/24 14:00 Temperature 98.2 F Pulse Rate 72 68 Respiratory Rate 16 Blood Pressure 107/65 Pulse Oximetry 93 Oxygen Delivery Room Air 10/23/24 20:00 10/23/24 22:00 10/23/24 22:04 Temperature 97.9 F Pulse Rate 74 Respiratory Rate 16 Blood Pressure 133/73 Pulse Oximetry 94 94 Oxygen Delivery Room Air Room Air 10/24/24 06:00 10/24/24 08:34 Temperature 98.2 F Pulse Rate 78 62 Respiratory Rate 16 Blood Pressure 141/60 H Pulse Oximetry 95 Oxygen Delivery Intake/Output Intake/Output: Intake & Output 10/21/24 10/22/24 10/23/24 10/24/24 23:59 23:59 23:59 23:59 Intake Total 1360.0 820 1465 200 Output Total 700 1000 Balance 1360.0 820 765 -800 Meds/Results Medications: Active Medications Generic Name Dose Route Start Last Admin Trade Name Freq PRN Reason Stop Dose Admin Albuterol 2 puff 10/21/24 10:05 Albuterol Sulfate (*Sp) Aerosol 1 Puff INHALATION Q4H PRN Shortness Of Breath Amlodipine Besylate 5 mg 10/22/24 09:00 10/24/24 08:34 Amlodipine Besylate 5 Mg Tablet PO 5 mg QAM ORLY Administration Apixaban 2.5 mg 10/21/24 21:00 10/24/24 08:36 Apixaban 2.5 Mg Tablet PO 2.5 mg Q12HR ORLY Administration Atorvastatin Calcium 80 mg 10/22/24 09:00 10/24/24 08:36 Atorvastatin 40 Mg Tablet PO 80 mg DAILY ORLY Administration Dextrose 12.5 gm 10/21/24 00:10 10/21/24 08:05 Dextrose 50% 25 Gm/50 Ml Syringe IV PUSH 12.5 gm PRN PRN Administration Hypoglycemia Protocol Docusate Sodium 100 mg 10/21/24 17:00 10/24/24 08:34 Docusate Sodium 100 Mg Capsule PO 100 mg BID ORLY Administration Empagliflozin 10 mg 10/22/24 09:00 10/24/24 08:36 Empagliflozin 10 Mg Tablet PO 10 mg DAILY ORLY Administration Fluoxetine HCl 20 mg 10/22/24 09:00 10/24/24 08:36 Fluoxetine Hcl 20 Mg Capsule PO 20 mg DAILY ORLY Administration Glucagon 1 mg 10/21/24 00:10 Glucagon For Inj 1 Mg Vial IM PRN PRN Hypoglycemia Protocol Glucose 15 gm 10/21/24 00:10 Glucose Oral Gel 15 Gm Of Glucse In 37.5 Gm Tube PO PRN PRN Hypoglycemia Protocol Dextrose 1,000 mls @ 100 mls/hr 10/21/24 00:10 Dextrose 5% 1,000 Ml IVPB PRN PRN Hypoglycemia Protocol Ceftriaxone Sodium 1 gm in 50 mls @ 100 mls/hr 10/23/24 11:00 10/23/24 15:48 Rocephin 1 Gm/Ns 50 Ml IVPB Infused Q24H ORLY Infusion Azithromycin 500 mg in 250 mls @ 250 mls/hr 10/23/24 10:00 10/23/24 14:48 Zithromax IVPB Infused Q24H ORLY Infusion Insulin Aspart 2 - 5 units 10/21/24 08:00 10/24/24 08:33 Insulin Aspart (*Bkc) 100 Units/Ml SUB-Q Not Given TIDWM [facility] Protocol Levothyroxine Sodium 50 mcg 10/22/24 06:30 10/24/24 05:31 Levothyroxine Sodium 50 Mcg Tablet PO 50 mcg DAILY@0630 ORLY Administration Magnesium Citrate 300 ml 10/21/24 10:05 Magnesium Citrate 300 Ml Btl PO ONCE PRN constipation Metoclopramide HCl 5 mg 10/22/24 12:00 10/24/24 05:35 Metoclopramide Hcl Inj 10 Mg/2 Ml Vial IV PUSH 5 mg Q6HR ORLY Administration Metoprolol Succinate 50 mg 10/22/24 09:00 10/24/24 08:34 Metoprolol Succinate Ext Rel 50 Mg Tabcr PO 50 mg DAILY ORLY Administration Ondansetron HCl 4 mg 10/21/24 14:20 Ondansetron Inj 4 Mg/2 Ml Vial IV PUSH Q6H PRN Nausea And Vomiting Perflutren Lipid Microsphere 0 ml 10/22/24 15:21 Perflutren Lipid Microspheres 1.5 Ml Vial Diluted To 10 Ml Total Volume IV PUSH 10/25/24 15:21 ONCE PRN adequate visualization Protocol Phenyleph/Shark Oil/Min Oil/Petrol 1 applic 10/21/24 09:00 10/24/24 08:36 Phenyleph/Shark Oil/Mo/Petrol Cream 26 Gm RECTAL Not Given DAILY [facility] Spironolactone 25 mg 10/22/24 09:00 10/24/24 08:36 Spironolactone 25 Mg Tablet PO 25 mg DAILY ORLY Administration Radiology Results: ITS Impressions Chest X-Ray 10/23/24 09:07 Impression: Hazy left basilar airspace disease is suggestive of pneumonia. Consider asymmetric pulmonary edema is a potential alternative consideration. Background chronic interstitial disease. Stable cardiomegaly. Labs Labs: Laboratory Results - last 24 hr 10/23/24 10/23/24 10/23/24 11:31 16:47 21:56 WBC RBC Hgb Hct MCV MCH MCHC RDW Plt Count MPV Immature Gran % (Auto) Neut % (Auto) Lymph % (Auto) [place] % (Auto) Eos % (Auto) Baso % (Auto) Lymph # (Auto) [place] # (Auto) Eos # (Auto) Baso # (Auto) Abs Immat Gran (auto) Absolute Neuts (auto) Absolute Nucleated RBC Nucleated RBC % % Immature Plt Fraction Sodium Potassium Chloride Carbon Dioxide Anion Gap BUN Creatinine Estim Creat Clear Calc Estimated GFR Glucose POC Capillary Glucose 174 H 140 H 126 H Calcium Total Bilirubin AST ALT Alkaline Phosphatase Total Protein Albumin 10/24/24 10/24/24 07:32 07:40 WBC 6.6 RBC 4.12 L Hgb 12.7 Hct 38.6 MCV 93.7 MCH 30.8 MCHC 32.9 RDW 13.0 Plt Count 111 L MPV 10.1 Immature Gran % (Auto) 1.4 H Neut % (Auto) 71.6 Lymph % (Auto) 8.5 L [place] % (Auto) 17.4 H Eos % (Auto) 0.8 Baso % (Auto) 0.3 Lymph # (Auto) 0.56 L [place] # (Auto) 1.1 H Eos # (Auto) 0.1 Baso # (Auto) 0.0 Abs Immat Gran (auto) 0.09 H Absolute Neuts (auto) 4.7 Absolute Nucleated RBC 0.000 Nucleated RBC % 0.0 % Immature Plt Fraction 3.4 Sodium 138 Potassium 4.8 Chloride 107 Carbon Dioxide 20 L Anion Gap 11 BUN 21 H Creatinine 1.34 H Estim Creat Clear Calc 23 Estimated GFR 38 L Glucose 108 POC Capillary Glucose 108 H Calcium 9.0 Total Bilirubin 0.9 AST 27 ALT 24 Alkaline Phosphatase 98 Total Protein 7.0 Albumin 4.0 Quality VTE Prophylaxis VTE prophylaxis: pharmacologic ordered
[2024-10-24] MEDS: AZITHROMYCIN 250 MG TABLET 500 MG PO (11:03)
[2024-10-24] MEDS: AMOXICILLIN/CLAVULANATE K 500-125 MG TAB 1 TABLET PO (11:04)
--- NOTE | 2024-10-24 11:08 | P.DS_ITS ---
DS: Admitting Diagnosis Discharge Date 10/24/2023 Admitting Diagnosis Dehydration DS: Discharge Diagnosis Discharge Diagnosis (1) PRANAY (acute kidney injury): Code(s): N17.9 - Acute kidney failure, unspecified Status: Acute Assessment and Plan: Improving * Creatinine 2.60 on admission. * Encourage oral intake. * Monitor renal function. (2) Hyperkalemia: Code(s): E87.5 - Hyperkalemia Status: Acute Assessment and Plan: Improved Lokelma 20 IV Lasix x1 Repeat BMP (3) Diabetes: Code(s): E11.9 - Type 2 diabetes mellitus without complications Status: Acute Assessment and Plan: Hypoglycemia on admission * Hypoglycemic protocol. * SSI * HgbA1C 6.1%. * Hold home metformin and glimepiride. * Continue Jardiance 10 mg PO daily. (4) Paroxysmal atrial fibrillation: Code(s): I48.0 - Paroxysmal atrial fibrillation Status: Acute Assessment and Plan: * Apixaban 2.5 mg PO BID * Metoprolol Succinate 50 mg PO daily. (5) Right-sided heart failure: Code(s): I50.810 - Right heart failure, unspecified Status: Acute Assessment and Plan: * Spironolactone 25 mg PO daily. * Jardiance 10 mg Po daily. * Metoprolol Succinate 50 mg PO daily. * Lasix x1 this morning * Echo 65-70% (6) Weakness: Code(s): R53.1 - Weakness Status: Acute Assessment and Plan: Improving * PT/OT * UA noninfected * Patient found to have pneumonia (7) Nausea: Code(s): R11.0 - Nausea Status: Acute Assessment and Plan: * Ondansetron 4 mg ivp q 6 PRN. * Scheduled Reglan (8) Hypertension: Code(s): I10 - Essential (primary) hypertension Status: Acute Assessment and Plan: * Continue Amlodipine 5 mg PO daily. (9) Pneumonia: Code(s): J18.9 - Pneumonia, unspecified organism Status: Acute Assessment and Plan: Started on azithromycin and Rocephin Transition to oral antibiotics DS: Summary Hospital Course Reason for hospitalization: Pneumonia and dehydration Hospital Course: 83 year old female that came to the ER with low blood sugars and weakness. Patient had been feeling nauseous and not eating well at home but continued to take her diabetic medications. Patient was given IV fluids in the ER. Creatinine 2.60, HgbA1c 6.1%. UA 1+ protein, 3+ glucose, trace ketones. Respiratory panel negative. Patient was found to be dehydrated started on IVF. She was also hypoglycemic likely due to poor oral intake. Patient was hydrated and diuretics held. Which causes the patient to have pulmonary edema. Patient was given IV Lasix. On day 2 of hospitalization the patient had chest x-ray that showed pneumonia patient started on IV antibiotics with improvement. She has been restarted on room medications. Time Spent with Patient Time attestation: Total time spent providing and/or coordinating discharge services: Time spent: Greater than 30 minutes Exam Narrative: General: well appearing, appears stated age. HEENT: normocephalic, atraumatic. Mucous membranes moist. EOMI, PERRLA, bilateral sclera anicteric, no conjunctival injection. Neck supple without JVD, lymphadenopathy, or bruit. Respiratory: clear to ascultation bilaterally. No rales/rhonic/wheezes. Cardiovascular: Regular rate and rhythm, normal S1-S2 upon ascultation. No murmurs, rubs, or clicks. PMI is nondisplaced, capillary refill less than 3 second. Abdomen: Soft, round, no pulsatile masses, nondistended and nontender. No rebound, no guarding. No CVA tenderness, no hepatosplenomegaly. Bowel sounds present to all four quadrants. No high pitch or tinkling sounds, resonant to percussion. Extremities: No cyanosis, clubbing, or edema present. Pulses are palpable 2/2. 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 PERRLA. Cranial nerves 2-12 intact without focal deficit. Skin: Warm, dry, and intact, without rash, erythema, or lesion. Psych: pleasant, cooperative, normal speech, normal affect, no hallucinations, no dysarthia DS: Data Data Completed and Pending Labs on day of discharge: Labs from last 24 hours 10/24/24 10/24/24 10/23/24 07:40 07:32 21:56 WBC 6.6 RBC 4.12 L Hgb 12.7 Hct 38.6 MCV 93.7 MCH 30.8 MCHC 32.9 RDW 13.0 Plt Count 111 L MPV 10.1 Immature Gran % (Auto) 1.4 H Neut % (Auto) 71.6 Lymph % (Auto) 8.5 L [place] % (Auto) 17.4 H Eos % (Auto) 0.8 Baso % (Auto) 0.3 Lymph # (Auto) 0.56 L [place] # (Auto) 1.1 H Eos # (Auto) 0.1 Baso # (Auto) 0.0 Abs Immat Gran (auto) 0.09 H Absolute Neuts (auto) 4.7 Absolute Nucleated RBC 0.000 Nucleated RBC % 0.0 % Immature Plt Fraction 3.4 Sodium 138 Potassium 4.8 Chloride 107 Carbon Dioxide 20 L Anion Gap 11 BUN 21 H Creatinine 1.34 H Estim Creat Clear Calc 23 Estimated GFR 38 L Glucose 108 POC Capillary Glucose 108 H 126 H Calcium 9.0 Total Bilirubin 0.9 AST 27 ALT 24 Alkaline Phosphatase 98 Total Protein 7.0 Albumin 4.0 10/23/24 10/23/24 16:47 11:31 WBC RBC Hgb Hct MCV MCH MCHC RDW Plt Count MPV Immature Gran % (Auto) Neut % (Auto) Lymph % (Auto) [place] % (Auto) Eos % (Auto) Baso % (Auto) Lymph # (Auto) [place] # (Auto) Eos # (Auto) Baso # (Auto) Abs Immat Gran (auto) Absolute Neuts (auto) Absolute Nucleated RBC Nucleated RBC % % Immature Plt Fraction Sodium Potassium Chloride Carbon Dioxide Anion Gap BUN Creatinine Estim Creat Clear Calc Estimated GFR Glucose POC Capillary Glucose 140 H 174 H Calcium Total Bilirubin AST ALT Alkaline Phosphatase Total Protein Albumin Discharge Plan Discharge Discharging Clinician: Ellyn Davis Anticipated Discharge Date/Time: 10/24/24 11:04 Patient Disposition: Home Health Service Activity: may shower Diet: regular Discharge Instructions: Care Coordination: Patient to have [facility] for PT/OT eval and treat, and half-way. Their phone number is [phone]; they will contact you to schedule their first visit. RN Please fax discharge instructions to [phone] and to [facility] at fax# [phone] . Discharge instructions: Take medications as prescribed New medications prescribed: Antibiotics take as directed You are activity as tolerated Monitor blood pressures Avoid social areas, you wear a mask when in social settings Encouraged to continue with yearly vaccinations Return to the emergency department if he developed sudden shortness of breath, chest pain, nausea, vomiting, upset stomach or intractable diarrhea Return to the emergency department if you develop fever greater than 101.5 Follow-up with: Your primary care physician within 1-2 weeks for post hospitalization check up Thank you for [facility] [place] for your healthcare needs Patient Instructions: Antibiotic Form, Apixaban (By mouth), Heart Failure (DC) Patient Language: Kyrgyz Stand Alone Forms: General Discharge Information Follow-up/Referrals: UNKNOWN,DOCTOR [Non-Staff] - (Follow-up with your primary care provider) Discharge Medications: New azithromycin [Zithromax] 250 mg Tablet 500 mg PO DAILY 4 Days Qty: 8 0RF amoxicillin-pot clavulanate [Augmentin] 500-125 mg Tablet 1 tablet PO Q12HR 4 Days Qty: 8 0RF Continued metoprolol succinate 50 mg tablet extended release 24 hr 50 mg PO DAILY docusate sodium 100 mg capsule 100 mg PO BID Qty: 60 2RF magnesium citrate [OneLAX Magnesium Citrate] Solution 300 ml PO ONCE PRN (Reason: constipation) Qty: 296 0RF Rx Instructions: as a single dose as needed for 3-4 with BM. atorvastatin 80 mg tablet 80 mg PO DAILY Eliquis 2.5 mg tablet 2.5 mg PO BID amlodipine [Norvasc] 5 mg Tablet 5 mg PO QAM 30 Days Qty: 30 0RF Jardiance 10 mg Tablet 10 mg PO DAILY 30 Days Qty: 30 0RF spironolactone [Aldactone] 25 mg tablet 25 mg PO DAILY 30 Days Qty: 30 0RF glimepiride 2 mg tablet 2 mg PO DAILY levothyroxine 50 mcg tablet 50 mcg PO DAILY albuterol sulfate 90 mcg/actuation HFA aerosol inhaler 2 puff INHALATION Q4H PRN (Reason: Shortness Of Breath) fluoxetine 20 mg capsule 20 mg PO DAILY metformin 500 mg tablet extended release 24 hr 500 mg PO DAILY Discontinued sulfamethoxazole-trimethoprim [Bactrim DS] 800-160 mg tablet 1 tablet PO Q12H Qty: 14 0RF Date of admission: 10/21/24 02:14 Primary Care Provider: PHYSICIAN NOT ON STAFF,NONSTAFF Admitting Provider: Shruthi Rivera Attending physician on admission: Shruthi Rivera Condition: Stable Quality VTE Prophylaxis VTE prophylaxis: pharmacologic ordered Hospitalist MIPS Heart Failure (Exclusion) Patient has history of Heart Transplant or Left Ventricular Assistive Device?: No IF YES, STOP HERE Heart Failure (Qualifier) Patient has current or prior documentation of LVEF less than or equal to 40%, or mod/servere depressed LVSF?: No IF NO, STOP HERE
[2024-10-24 12:03] LABS: Glucose Point of Care 154 mg/dl (65-105)
== END 2024-10-24 13:45 | disposition home health service (06) | DRG 682 ==
LOC: ANHED 10-21 00:12 → ANH3MEDSUR 10-21 03:50
PROVIDERS: Emergency Medicine; Nurse Practitioner Family; Physician Assistant; Admitting Provider Internal Medicine; Emergency Provider Emergency Medicine; Visit Provider Nurse Practitioner Gerontology
DX: N17.9 Acute kidney failure, unspecified (principal); J18.9 Pneumonia, unspecified organism; I13.0 Hypertensive heart and chronic kidney disease with heart failure and stage 1 through stage 4 chronic kidney disease, or unspecified chronic kidney disease; I69.354 Hemiplegia and hemiparesis following cerebral infarction affecting left non-dominant side; E87.5 Hyperkalemia; N18.9 Chronic kidney disease, unspecified; I50.812 Chronic right heart failure; I35.0 Nonrheumatic aortic (valve) stenosis; I48.0 Paroxysmal atrial fibrillation; I27.20 Pulmonary hypertension, unspecified; E11.22 Type 2 diabetes mellitus with diabetic chronic kidney disease; E11.649 Type 2 diabetes mellitus with hypoglycemia without coma; E03.9 Hypothyroidism, unspecified; E78.5 Hyperlipidemia, unspecified; R11.0 Nausea; Z20.822 Contact with and (suspected) exposure to COVID-19; Z79.01 Long term (current) use of anticoagulants; Z87.891 Personal history of nicotine dependence
CPT/HCPCS: 36415; 71045; 80048; 80053; 81001; 82948; 83036; 83605; 83735; 84100; 85025; 85055; 87636; 87637; 93005; 93306; 96361; 96374; 97162; 97165; 97530; 97535; 99285; A9270; J0456; J0612; J0696; J1940; J2405; J2765; J7030; J7042; J7120

== ENCOUNTER 2025-02-13 16:04 | Inpatient (IN) | payer OTHER, SELFPAY ==
[2025-02-13] VITALS (11 sets, daily range): BP systolic 124–154; BP diastolic 62–88; PULSE 43–64; RESP 14–18; TEMP 36.6–36.8; O2SAT 95–100; BMI 23.1
--- NOTE | ~2025-02-13 | XR_ITS ---
XR chest 1V portable Ordering provider: George Locke MD History: 84 years Female with . WEAKNESS, SOB . Comparison: October 23, 2024 FINDINGS: MEDIASTINUM: The cardiac silhouette is moderately enlarged. Congested jhonny. LUNGS: No effusions or pneumothorax. Bilateral interstitial thickening. Minimal opacification the lef t lung base. OTHER: No free air under the diaphragm. Degenerative changes of the spine. IMPRESSION: Cardiomegaly with cardiac decompensation and possible pulmonary edema. Pneumonitis is not excluded. Left basilar atelectasis versus pneumonia. Reviewed, dictated and finalized at location A. IMPRESSION: Cardiomegaly with cardiac decompensation and possible pulmonary edema. Pneumoni tis is not excluded. Left basilar atelectasis versus pneumonia.
--- NOTE | ~2025-02-13 | CT_ITS ---
CT abdomen pelvis w con Ordering provider: George Locke MD History: 84 years Female with . lower ab pain . Comparison: October 14, 2024 Technique: CT abdomen and pelvis with IV and without oral contrast. Automated exposure control and it erative reconstruction technique were employed. The dose-length product was 222.42 mGy-cm. 100 mL Omn ipaque 350 was given IV. Findings: VISUALIZED LOWER CHEST: Cardiomegaly. Bibasilar atelectasis versus pneumonia. Nodule in the left lowe r lobe laterally measuring 9 mm unchanged from previous examination. UPPER ABDOMINAL ORGANS: Liver: Fat infiltration. Hypodensity in the left lobe most likely a cyst measuring 1.2 cm. Gallbladder: Cholelithiasis. Spleen: Normal. Stomach/duodenum: Small sliding hiatus hernia. Pancreas: Normal. Prominent pancreatic duct. Follow-up advised. Adrenals: Normal. Kidneys: Bilateral tiny cysts. PELVIC ORGANS: The bladder is underfilled with wall. BOWEL AND MESENTERY: Colon: No evidence of diverticulitis. The appendix is not demonstrated. Small Bowel: Normal. No obstruction. Peritoneum/mesentery: No free air or free fluid. No mesenteric lymphadenopathy. RETROPERITONEUM: Moderate atheromatous disease of the abdominal aorta. No retroperitoneal lymphaden opathy. MUSCULOSKELETAL: Superficial soft tissues: The superficial soft tissues are normal. Bones: Age appropriate degenerative changes of the spine. Dextroscoliosis. Osteopenia of the bones. B ilateral hip osteoarthritic changes. Bilateral sacroiliitis. IMPRESSION: 1. No evidence of appendicitis, diverticulitis or intestinal obstruction. 2. Cholelithiasis. 3. Fat infiltration of the liver. 4. Cardiomegaly. 5. Nodule in the left lung base unchanged from previous examination. Reviewed, dictated and finalized at location A.
--- NOTE | 2025-02-13 16:08 | ECG_ITS ---
Test Date: 2025-02-13 16:11:23 Measurements Intervals [place] Rate: 39 P: 0 NE: 0 QRS: 13 QRSD: 87 T: 0 QT: 477 QTc: 384 Interpretive Statements ATRIAL FIBRILLATION WITH SLOW VENTRICULAR RESPONSE CANNOT R/O SEPTAL INFARCT, AGE INDETERMINATE BORDERLINE ST-T WAVE ABNORMALITY- INF/HIGH LAT LEADS BASELINE ARTIFACT- I, II, III, AVR, AVL ,AVF ABNORMAL ECG Compared to ECG 10/21/2024 06:39:35 HEART RATE HAS DECREASED Electronically Signed On 02-13-2025 16:25:04 CDT by Kodi Gan D.O.
--- NOTE | 2025-02-13 16:19 | ED.GENADULT ---
HPI - General Adult General Chief complaint: Weakness Stated complaint: UTI Time Seen by Provider: 02/13/25 16:07 History of Present Illness HPI narrative: 84-year-old female present to the emergency department for evaluation for increased generalized weakness over the last 3 days. Patient states that she has had no falls or injuries. Patient denies any chest pain but does have some shortness of breath. Patient reports decreased p.o. intake today due to the generalized weakness. Patient does report some lower abdominal discomfort but denies any specific pain with urination. Patient does have history of AFib and does take metoprolol. Patient follows up with Dr. Gan Related Data Home Medications ?Medication ?Instructions ?Recorded ?Confirmed ?Last Taken ?Type apixaban 2.5 mg tablet (Eliquis) 2.5 mg PO BID 07/03/21 02/13/25 Unknown History atorvastatin 80 mg tablet 80 mg PO DAILY 07/03/21 02/13/25 Unknown History metoprolol succinate 50 mg 50 mg PO DAILY 10/30/23 02/13/25 Unknown History tablet,extended release 24 hr albuterol sulfate 90 mcg/actuation 2 puff inhalation Q4H PRN 06/23/24 02/13/25 Unknown History aerosol inhaler Shortness Of Breath fluoxetine 20 mg capsule 20 mg PO DAILY 06/23/24 02/13/25 Unknown History glimepiride 2 mg tablet 2 mg PO DAILY 06/23/24 02/13/25 Unknown History levothyroxine 50 mcg tablet 50 mcg PO DAILY 06/23/24 02/13/25 Unknown History metformin 500 mg tablet,extended 500 mg PO DAILY 06/23/24 02/13/25 Unknown History release 24 hr famotidine 20 mg tablet 20 mg PO DAILY 11/25/24 02/13/25 Unknown History aspirin 325 mg tablet 325 mg PO DAILY 01/20/25 02/13/25 Unknown History spironolactone 25 mg tablet 25 mg PO DAILY 02/13/25 02/13/25 Unknown History Allergies Allergy/AdvReac Type Severity Reaction Status Date / Time No Known Drug Allergies Allergy Unknown Unknown Verified 02/13/25 16:32 Review of Systems Review of Systems: All systems reviewed & are unremarkable except as noted in HPI and below PMFSH Past Medical History Medical History Acute on chronic kidney failure Diabetes Right-sided heart failure Aortic valve stenosis Mild aortic valve stenosis with a valve area of 1.5 cm2 on echocardiogram in March 2022. Pulmonary hypertension Severe pulmonary hypertension with a PASP of 69 mmHg on echocardiogram in March 2022. 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 CODE STATUS: She is okay with CPR and medications but does not wish to be intubated. Modified code, updated. Smoking packs per day: 3 Smoking cigarettes per day: 60.0 Years smoked: 50 Smoking pack-years: 150.00 Smoking status: Former smoker Tobacco type: cigarettes Smoking end date: 06/08/20 Alcohol intake: never Substance use: never Substance use type: does not use Do You Feel Safe in your Home?: Yes Lack of Transportation: YES Lack of Food: Never True Current Housing: I Have Housing Concerned About Future Housing: No Difficulty Paying Gas/Electric Bills: No Difficulty Paying for Meds: No Currently Unemployed: No Education: Decline to Answer Difficulty w/ Childcare or Family Care: No Additional living arrangements comments: Assisted living at [facility]. Additional occupation/education comments: Retired. Spiritual care concerns: No Exam Narrative: APPEARANCE: Well appearing, no pain, no distress, well-nourished. HEAD: normocephalic, atraumatic. EYES: PERRLA/EOMI, conjunctivae clear. NOSE: Normal no drainage EARS:TMS clear with good light reflex. THROAT: Pharynx clear, no exudate. NECK: Supple. No adenopathy, no masses. RESPIRATORY: Airway patent, respirations nonlabored. Clear to auscultation bilaterally, no rales, rhonchi, wheezing. CARDIOVASCULAR: AFib with slow ventricular response ABDOMINAL: Lower abdominal tenderness, normal bowel sounds MUSCULOSKELETAL: Moves all extremities. Strength/ROM intact, No edema, No calf tenderness. NEURO: Alert. Cranial nerves II through XII intact. Grossly intact SKIN: Warm, dry. Normal Color Course Vital Signs Vital signs: Vital Signs Temperature 98.2 F 02/13/25 16:00 Pulse Rate 43 L 02/13/25 16:00 Respiratory Rate 17 02/13/25 16:00 Blood Pressure 134/62 02/13/25 16:00 Pulse Oximetry 100 02/13/25 16:00 Oxygen Delivery Room Air 02/13/25 16:00 Temperature 98.1 F 02/13/25 18:17 Pulse Rate 54 L 02/13/25 18:17 Respiratory Rate 15 02/13/25 18:17 Blood Pressure 124/63 02/13/25 18:17 Pulse Oximetry 97 02/13/25 18:17 Oxygen Delivery Room Air 02/13/25 16:26 Medical Decision Making MDM Narrative Medical decision making narrative: 84 old female presents emergency department for evaluation for increased generalized weakness with bradycardia. Patient does complain of cough congestion and some lower abdominal pain. Patient does have history of AFib and does take metoprolol. Patient has been taking this as directed. Upon arrival emergency department patient's heart rate was 35-45 and patient had a normal blood pressure. Patient was treated with IM glucagon and this did increase her heart rate. 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 Patient does have a urinary tract infection on the UA and she is being started on Rocephin. Chest x-ray was also concerning for possible pneumonia so she was initially started on a azithromycin, blood cultures were ordered. Case was discussed with hospitalist patient was accepted for admission to the IMU. Patient's heart rate was improved at time of admission. Differential Diagnosis Differential Diagnosis: AFib, slow AFib, average medication reaction, urinary tract infection, pneumonia, COVID, RSV, influenza, Vital Signs Vital Signs: Vital Signs Temperature 98.2 F 02/13/25 16:00 Pulse Rate 43 L 02/13/25 16:00 Respiratory Rate 17 02/13/25 16:00 Blood Pressure 134/62 02/13/25 16:00 Pulse Oximetry 100 02/13/25 16:00 Oxygen Delivery Room Air 02/13/25 16:00 Temperature 98.1 F 02/13/25 18:17 Pulse Rate 54 L 02/13/25 18:17 Respiratory Rate 15 02/13/25 18:17 Blood Pressure 124/63 02/13/25 18:17 Pulse Oximetry 97 02/13/25 18:17 Oxygen Delivery Room Air 02/13/25 16:26 Lab Data Lab results reviewed: Yes I reviewed the patient's lab results. 02/13/25 16:37 02/13/25 16:37 Labs: Lab Results 02/13/25 02/13/25 02/13/25 Range/Units 16:19 16:31 16:37 WBC 6.3 (4.5-10.0) K/mm3 RBC 4.27 (4.2-5.4) M/mm3 Hgb 11.8 L (12.0-15.0) g/dL Hct 38.1 (37.0-47.0) % MCV 89.2 (80-100) fl MCH 27.6 (26-34) pg MCHC 31.0 L (32-36) g/dl RDW 13.2 (11.5-14.5) % Plt Count 172 D (150-375) k/mm3 MPV 9.6 (7.4-10.4) fl Immature Gran % (Auto) 1.1 H (0-0.5) % Neut % (Auto) 72.8 (45.5-73.1) % Lymph % (Auto) 11.8 L (18.3-44.2) % [place] % (Auto) 12.6 H (2.6-8.5) % Eos % (Auto) 1.4 (0-4.4) % Baso % (Auto) 0.3 (0.2-1.2) % Lymph # (Auto) 0.74 L (0.9-3.2) K/mm3 [place] # (Auto) 0.8 H (0.1-0.6) K/mm3 Eos # (Auto) 0.1 (0-0.3) K/mm3 Baso # (Auto) 0.0 (0.0-0.1) K/mm3 Abs Immat Gran (auto) 0.07 H (0.00-0.031) K/mm3 Absolute Neuts (auto) 4.6 (1.3-6.7) K/mm3 Absolute Nucleated RBC 0.000 (0.0-0.012) K/mm3 Nucleated RBC % 0.0 (0.0-0.2) % Sodium 140 (137-145) mmol/L Potassium 4.9 (3.4-5.0) mmol/L Chloride 107 (98-107) mmol/L Carbon Dioxide 21 L (22-30) mmol/L Anion Gap 12 (4-12) mmol/L BUN 25 H (7-17) mg/dL Creatinine 1.59 H (0.7-1.0) mg/dL Estim Creat Clear Calc 19 ml/min Estimated GFR 31 L (59 - ) Glucose 116 H (65-110) mg/dL POC Capillary Glucose 93 (65-105) mg/dl Calcium 9.2 (8.4-10.2) mg/dL Magnesium 2.1 (1.6-2.3) mg/dL Total Bilirubin 0.4 (0.2-1.3) mg/dL AST 36 (14-36) U/L ALT 23 (6-35) U/L Alkaline Phosphatase 83 (38-126) U/L Total Protein 7.8 (6.3-8.2) g/dL Albumin 4.5 (3.5-5.1) g/dL TSH (Reflex) > 100.000 H (0.465-4.68) uIU/mL Free T4 0.69 L (0.78-2.19) ng/dL Urine Color Yellow (Yellow) Urine Appearance Cloudy H (Clear) Urine pH 5.5 (5.0-9.0) Ur Specific [place] 1.028 (1.001-1.035) Urine Protein 3+ H (Negative) mg/dL Urine Glucose (UA) 3+ H (Negative) mg/dL Urine Ketones Trace H (Negative) mg/dL Ur Blood (Man) Trace (Negative) Urine Nitrate Positive H (Negative) Urine Bilirubin Negative (Negative) Urine Urobilinogen 1.0 (<2.0) mg/dL Leukocyte Esterase Rfl 1+ H (Negative) MERRICK/UL Urine RBC 0-2 (0-2) /hpf Urine WBC >100 H (0-3) /hpf Ur Squamous Epith Cells None seen (Few) /hpf Urine Bacteria 4+ H /hpf Urine Casts 3-5 Hyaline Casts Present (None) /lpf Influenza A (RT-PCR) Negative (Negative) Influenza B (RT-PCR) Negative (Negative) RSV (RT-PCR) Negative (Negative) SARS-CoV-2 RNA (RT-PCR) Negative (Negative) 02/13/25 Range/Units 17:20 WBC (4.5-10.0) K/mm3 RBC (4.2-5.4) M/mm3 Hgb (12.0-15.0) g/dL Hct (37.0-47.0) % MCV (80-100) fl MCH (26-34) pg MCHC (32-36) g/dl RDW (11.5-14.5) % Plt Count (150-375) k/mm3 MPV (7.4-10.4) fl Immature Gran % (Auto) (0-0.5) % Neut % (Auto) (45.5-73.1) % Lymph % (Auto) (18.3-44.2) % [place] % (Auto) (2.6-8.5) % Eos % (Auto) (0-4.4) % Baso % (Auto) (0.2-1.2) % Lymph # (Auto) (0.9-3.2) K/mm3 [place] # (Auto) (0.1-0.6) K/mm3 Eos # (Auto) (0-0.3) K/mm3 Baso # (Auto) (0.0-0.1) K/mm3 Abs Immat Gran (auto) (0.00-0.031) K/mm3 Absolute Neuts (auto) (1.3-6.7) K/mm3 Absolute Nucleated RBC (0.0-0.012) K/mm3 Nucleated RBC % (0.0-0.2) % Sodium (137-145) mmol/L Potassium (3.4-5.0) mmol/L Chloride (98-107) mmol/L Carbon Dioxide (22-30) mmol/L Anion Gap (4-12) mmol/L BUN (7-17) mg/dL Creatinine (0.7-1.0) mg/dL Estim Creat Clear Calc ml/min Estimated GFR (59 - ) Glucose (65-110) mg/dL POC Capillary Glucose 161 H (65-105) mg/dl Calcium (8.4-10.2) mg/dL Magnesium (1.6-2.3) mg/dL Total Bilirubin (0.2-1.3) mg/dL AST (14-36) U/L ALT (6-35) U/L Alkaline Phosphatase (38-126) U/L Total Protein (6.3-8.2) g/dL Albumin (3.5-5.1) g/dL TSH (Reflex) (0.465-4.68) uIU/mL Free T4 (0.78-2.19) ng/dL Urine Color (Yellow) Urine Appearance (Clear) Urine pH (5.0-9.0) Ur Specific [place] (1.001-1.035) Urine Protein (Negative) mg/dL Urine Glucose (UA) (Negative) mg/dL Urine Ketones (Negative) mg/dL Ur Blood (Man) (Negative) Urine Nitrate (Negative) Urine Bilirubin (Negative) Urine Urobilinogen (<2.0) mg/dL Leukocyte Esterase Rfl (Negative) MERRICK/UL Urine RBC (0-2) /hpf Urine WBC (0-3) /hpf Ur Squamous Epith Cells (Few) /hpf Urine Bacteria /hpf Urine Casts Hyaline Casts (None) /lpf Influenza A (RT-PCR) (Negative) Influenza B (RT-PCR) (Negative) RSV (RT-PCR) (Negative) SARS-CoV-2 RNA (RT-PCR) (Negative) Imaging Data Radiologist's impression: Impressions Chest X-Ray 02/13/25 17:02 IMPRESSION: Cardiomegaly with cardiac decompensation and possible pulmonary edema. Pneumonitis is not excluded. Left basilar atelectasis versus pneumonia. Critical Care Time Critical Care Time Critical Care Time: Yes Total Critical Care Time: 35 Discharge Plan Discharge Clinical Impression: Atrial fibrillation with slow ventricular response, Acute UTI, Pneumonitis Patient Disposition: Still a Patient Condition: Serious
[2025-02-13] MEDS: GLUCAGON FOR INJ 1 MG VIAL IM (16:20)
[2025-02-13 16:36] LABS: Glucose Point of Care 93 mg/dl (65-105)
[2025-02-13 16:47] LABS: Basophils Percent Auto 0.3 % (0.2-1.2); Eosinophils Absolute Auto 0.1 K/mm3 (0-0.3); Eosinophils Percent Auto 1.4 % (0-4.4); Hematocrit 38.1 % (37.0-47.0); Hemoglobin 11.8 g/dL (12.0-15.0); Immature Granulocyte Absolute 0.07 K/mm3 (0.00-0.031); Immature Granulocyte Percent A 1.1 % (0-0.5); Lymphocytes Absolute Auto 0.74 K/mm3 (0.9-3.2); Lymphocytes Percent Auto 11.8 % (18.3-44.2); Mean Corpuscular Hemoglobin 27.6 pg (26-34); Mean Corpuscular Volume 89.2 fl (80-100); Mean Platelet Volume 9.6 fl (7.4-10.4); Monocytes Absolute Auto 0.8 K/mm3 (0.1-0.6); Monocytes Percent Auto 12.6 % (2.6-8.5); Neutrophils Absolute Auto 4.6 K/mm3 (1.3-6.7); Neutrophils Percent Auto 72.8 % (45.5-73.1); Platelet Count Result 172 k/mm3 (150-375); Red Blood Count 4.27 M/mm3 (4.2-5.4); Red Cell Distribution Width 13.2 % (11.5-14.5); White Blood Count 6.3 K/mm3 (4.5-10.0)
[2025-02-13 16:57] LABS: Add Urine Microscopic? YES; Appearance Urine Cloudy (Clear); Bacteria Urine 4+ /hpf; Bilirubin Urine Negative (Negative); Blood Urine Trace (Negative); Color Urine Yellow (Yellow); Glucose Urine UA 3+ mg/dL (Negative); Hyaline Casts Urine Present /lpf; Ketones Urine Trace mg/dL (Negative); Leukocyte Esterase Ur 1+ LEU/UL (Negative); Nitrate Urine Positive (Negative); Protein Urine 3+ mg/dL (Negative); RBC Urine 0-2 /hpf (0-2); Specific Grav Ur 1.028 (1.001-1.035); Squamous Epithelial Cell Urine None Seen /hpf (Few); WBC Urine >100 /hpf (0-3); pH Urine 5.5 (5.0-9.0)
[2025-02-13 17:25] LABS: Glucose Point of Care 161 mg/dl (65-105)
[2025-02-13 17:32] LABS: Influenza A QL RT-PCR Negative (Negative); Influenza B QL RT-PCR Negative (Negative); RSV RNA, RT-PCR Negative (Negative); SARS-CoV-2 RNA PCR Negative (Negative)
[2025-02-13 17:43] LABS: Thyroid Stimulating Hormone Reflex > 100.000 uIU/mL (0.465-4.68)
--- OUTSIDE RECORDS SUMMARY | 2025-02-13 17:51 | XMS_ITS | Clinical Summary ---
Author Organization [facility] Address [address] [place] [address] Care Team Providers Care Service Technician Copier Name Role Phone Benny Wilkes MD Primary Care Provider [phone] Source Comments [facility],non-owned Affiliates and Associated Physician Practices is amultiple site organization consisting of ambulatory clinics and hospital sitesin [place], [place], [place] and [place]. This disclosure is being madepursuant to the Care Everywhere program and may not contain all information available regarding this patient. Last updated 18.[facility] Allergies No known active allergies Medications * Be aware that medications may not be up to date on this document. Alwaysverify current medications with the patient. 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 Gender Identity Not on file Sexual Orientation [...] Health Maintenance Due Date Last Done Comments MEDICARE AWV 12 MONTHS 1940 DTAP/TDAP/TD VACCINES (1 - Tdap) 11/08/1959 ZOSTER [...] 05/16/2021, Additional history exists COVID-19 VACCINE ( season) 2024 DEPRESSION SCREENING 09/03/2024 DIABETES - URINE PROTEIN SCREENING 09/03/2024 INFLUENZA VACCINE (Season Ended) 2025 06/12/2014 BONE DENSITY TESTING Completed 06/30/2011 HEPATITIS B VACCINE Aged Out No longe r eligible based on patient's age to complete this topic HIB VACCINE Aged Out No longer eligi ble based on patient's age to complete this topic HPV VACCINE Aged Out No longer eligi ble based on patient's age to complete this topic MENINGOCOCCAL (Group B) VACCINE SHARED DECISION-MAKING Aged Out No longer eligible based on patient's age to complete this topic MENINGOCOCCAL GROUPS A/C/Y/W VACCINE Aged Out No longer eligible based [...] RENAL FUNCTION PANEL (05/17/2021 3:33 AM CDT) [facility] Glucose 104 70 - 105 mg/dL 05/17/2021 4:11 AM CDT [facility] Sodium 141 136 - 145 mmol/L 05/17/2021 4:11 AM CDT [facility] Potassium 3.5 3.5 - 5.1 mmol/L 05/17/2021 4:11 AM CDT [facility] Chloride 108(H) 98 - 107 mmol/L 05/17/2021 4:11 AM CDT [facility] CO2 22(L) 23 - 31 mmol/L 05/17/2021 4:11 AM CDT [facility] Calcium 8.4 8.4 - 10.4 mg/dL 05/17/2021 4:11 AM CDT [facility] Anion Gap 11 8 - 18 mmol/L 05/17/2021 4:11 AM CDT [facility] BUN 16 9.8 - 20.1 mg/dL 05/17/2021 4:11 AM CDT [facility] Creatinine 1.10 0.57 - 1.11 mg/dL 05/17/2021 4:11 AM CDT [facility] Albumin 3.5 3.2 - 4.6 [...] CDT Calixto Glass MD LAB - CHEMISTRY ORDERABLES Britany l Result [facility] [address] [place] [address] * (ABNORMAL) HEMOGLOBIN A1C (04/24/2021 [...] The following cutoff levels are recommended by [place] [employer]. A1c > 6.5% : considered [...] specimen. Vickie Pike MD LAB - CHEMISTRY ORDERABLES F inal Result [facility] [address] [place] [address] * DEXA BONE DENSITY 2 [...] BELOW T-SCORE. Bladimir Esteves MD DEXA ORDERABLES Final Result from Last 3 Months or Most Recently Relevant to Health Maintenance Insurance [facility] MEDICARE SELF PAY NO INSURANCE Member Subscriber Plan / Payer (Ef fective for All Dates) Name:Moriah Reed Member ID:Not on file Relation to Subscriber:Not on file Name:MORIAH REED Subscriber ID:Not on file (Home) Address: [address] [place] [address] Payer ID:Not on file Group ID:Not on file Type:Self Pay Address: [place], [place] Advance Directives Documents on File Type Date Recorded Patient Prism Measurer Expl anation Adv Directive/Living Will/POA 04/29/2021 9:18 [...] 5:11 PM 03/11/2021 2:27 PM Care Teams Service Technician Copier Relationship Specialty Start Date End Date Benny Wilkes MD [id number] [address] PCP - General Internal Medicine 03/09/21
--- OUTSIDE RECORDS SUMMARY | 2025-02-13 17:51 | XMS_ITS | Encounter Summary ---
Author Organization [facility] Address [address] [place] [address] Care Team Providers Care Steel Fixer Name Role Phone Benny Wilkes MD Primary Care Provider [phone] Encounter Details Date Type Department Care Team (Late st Contact Info) Description 04/27/2021 3:15 PM CDT Hospital Encounter [address] [address] Lili Bethea MD [facility] [place] [address] Aguilar Latham MD [facility] [id number] [place] [id number] Eugene De Jesus MD [employer] [...] on file 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 Answer Date of Assessment Author No 04/23/2021 5:30 PM CDT Destiny Causey RN * Is person blind or have serious difficulty seeing? Answer Date of Assessment Author No 04/23/2021 5:30 PM CDT Destiny Causey RN * Does person have serious difficulty walking/climbing stairs? Answer Date of Assessment Author Yes 04/23/2021 5:30 PM Detsiny Elkins RN * Does person have difficulty [...] on filedocumented in this encounter Care Teams Steel Fixer Relationship Specialty Start Date End Date Benny Wilkes MD [address] [place] [id number] PCP - General Internal Medicine 03/09/21 documented as of this encounter
[2025-02-13 18:06] LABS: Alanine Aminotransferase 23 U/L (6-35); Albumin Level 4.5 g/dL (3.5-5.1); Alkaline Phosphatase 83 U/L (38-126); Anion Gap 12 mmol/L (4-12); Aspartate Amino Transferase 36 U/L (14-36); Bilirubin,Total 0.4 mg/dL (0.2-1.3); Blood Urea Nitrogen 25 mg/dL (7-17); Calcium 9.2 mg/dL (8.4-10.2); Carbon Dioxide 21 mmol/L (22-30); Chloride 107 mmol/L (98-107); Estimated CRCL calculation 19 ml/min; Estimated Glomerular Filt Rate 31; Glucose 116 mg/dL (65-110); Magnesium 2.1 mg/dL (1.6-2.3); Potassium 4.9 mmol/L (3.4-5.0); Sodium 140 mmol/L (137-145); Total Protein 7.8 g/dL (6.3-8.2)
--- NOTE | 2025-02-13 18:07 | PC.NURSE ---
This RN spoke with Cha SCHWARTZ at [facility] and informed her that pt is to be admitted to this hospital
[2025-02-13 18:19] LABS: Free T4 Free Thyroxine Reflex 0.69 ng/dL (0.78-2.19)
--- NOTE | 2025-02-13 18:19 | PC.NURSE ---
Pt gave permission for this RN to give her daughter Caleb an update regarding her POC and status. This RN informed pt daughter that pt is to be admitted to room 202 and informed her of medications given in the ED
--- NOTE | 2025-02-13 18:51 | ADMGEN ---
This patient, Moriah Grace, was admitted to IMU Room 202-01 @ 1851. Patient/family oriented to hospital policies and general routines including ID bracelet, bed and alarms, visiting hours, pain management, procedures, bathroom and other care routines, personal items, smoking policy, room service/diet, and visiting hours. Information on how to activate the Rapid Response Team has been discussed. Patient/Family are encouraged to report perceived risks to care and to ask questions if they do not understand what they are told or what they should do.
--- NOTE | 2025-02-13 19:15 | PM.IMHP ---
H&P: HPI History of Present Illness Date/Time: 02/13/25 21:00 Chief Complaint: Weakness. Narrative: This is a pleasant 84-year-old female with history of stroke, hypertension, hyperlipidemia, paroxysmal atrial fibrillation, pulmonary hypertension, chronic kidney disease, type 2 diabetes mellitus, and hypothyroidism following thyroidectomy for thyroid cancer who presented to the emergency department via EMS from [facility] for evaluation of weakness. She has not been feeling well for about 3 days with symptoms to include generalized weakness, urinary urgency, and lower abdominal discomfort. She also has a mild increase in shortness of breath from baseline. She denies sick contacts, syncope, near syncope, fever, sinus congestion, sore throat, cough, chest pain, pleuritic pain, orthopnea, paroxysmal nocturnal dyspnea, lower extremity edema, calf pain, vomiting, diarrhea, and dysuria. In the ED: Vital signs on arrival include a temperature 90.2?, blood pressure 134/62, pulse 43, SpO2 100% on room air. Labs were significant for a BUN of 25, creatinine 1.51, glucose 116, TSH greater than 100, free T4 0.69. Urinalysis was positive for 3+ protein, 3+ glucose, trace ketones, nitrates, 1+ leukocyte esterase, greater than 100 WBC, and 4+ bacteria. CT of the abdomen and pelvis showed no acute findings. Chest x-ray showed cardiomegaly with possible pulmonary edema and left basilar atelectasis versus pneumonia. She was given glucagon 1 mg IM for bradycardia (heart rate apparently got down into the low 80s though she has been asymptomatic and hemodynamically stable), azithromycin, and ceftriaxone. She is being admitted in setting for further treatment and close monitoring. Review of Systems Review of Systems: 12 systems were reviewed and are negative except for as per HPI. [facility] Past Medical History Medical History (Updated 02/14/25 @ 02:16 by Rebecca Sharp PA-C) Diastolic dysfunction Type 2 diabetes mellitus Right-sided heart failure Aortic valve stenosis Mild aortic valve stenosis with a valve area of 1.5 cm2 on echocardiogram in March 2022. Pulmonary hypertension Severe pulmonary hypertension with a PASP of 69 mmHg on echocardiogram in March 2022. 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 CODE STATUS: She is okay with CPR and medications but does not wish to be intubated. Modified code, updated. Smoking packs per day: 2 Smoking cigarettes per day: 40.0 Years smoked: 50 Smoking pack-years: 100.00 Smoking status: Former smoker Tobacco type: cigarettes Smoking end date: 06/08/20 Alcohol intake: never Substance use: never Substance use type: does not use Do You Feel Safe in your Home?: Yes Lack of Transportation: No Lack of Food: Never True Current Housing: I Have Housing Concerned About Future Housing: No Difficulty Paying Gas/Electric Bills: No Difficulty Paying for Meds: No Currently Unemployed: No Education: High School Diploma/GED Difficulty w/ Childcare or Family Care: No Additional living arrangements comments: Assisted living at [facility]. Additional occupation/education comments: Retired. Spiritual care concerns: No Meds Home Medications and Allergies Home Medications ?Medication ?Instructions ?Recorded ?Confirmed ?Type apixaban 2.5 mg tablet (Eliquis) 2.5 mg PO BID 07/03/21 02/13/25 History atorvastatin 80 mg tablet 80 mg PO DAILY 07/03/21 02/13/25 History amlodipine 5 mg tablet (Norvasc) 5 mg PO QAM 1 month #30 tabs 03/15/23 02/13/25 Rx empagliflozin 10 mg tablet 10 mg PO DAILY 1 month #30 tabs 03/15/23 02/13/25 Rx (Jardiance) metoprolol succinate 50 mg 50 mg PO DAILY 10/30/23 02/13/25 History tablet,extended release 24 hr albuterol sulfate 90 mcg/actuation 2 puff inhalation Q4H PRN 06/23/24 02/13/25 History aerosol inhaler Shortness Of Breath fluoxetine 20 mg capsule 20 mg PO DAILY 06/23/24 02/13/25 History glimepiride 2 mg tablet 2 mg PO DAILY 06/23/24 02/13/25 History levothyroxine 50 mcg tablet 50 mcg PO DAILY 06/23/24 02/13/25 History metformin 500 mg tablet,extended 500 mg PO DAILY 06/23/24 02/13/25 History release 24 hr docusate sodium 100 mg capsule 100 mg PO BID #60 caps 07/01/24 02/13/25 Rx magnesium citrate (OneLAX 300 ml PO ONCE PRN constipation 07/01/24 02/13/25 Rx Magnesium Citrate oral solution) #296 mL famotidine 20 mg tablet 20 mg PO DAILY 11/25/24 02/13/25 History aspirin 325 mg tablet 325 mg PO DAILY 01/20/25 02/13/25 History spironolactone 25 mg tablet 25 mg PO DAILY 02/13/25 02/13/25 History Allergies Allergy/AdvReac Type Severity Reaction Status Date / Time No Known Drug Allergies Allergy Unknown Unknown Verified 02/13/25 20:46 Vital Signs Vital Signs - 24 hr 02/13/25 16:00 02/13/25 16:26 02/13/25 16:46 Temperature 98.2 F Pulse Rate 43 L 46 L Respiratory Rate 17 Blood Pressure 134/62 Pulse Oximetry 100 98 Oxygen Delivery Room Air Room Air 02/13/25 17:22 02/13/25 17:47 02/13/25 18:17 Temperature 98.1 F Pulse Rate 51 L 49 L 54 L Respiratory Rate 14 16 15 Blood Pressure 150/73 H 135/72 124/63 Pulse Oximetry 97 97 97 Oxygen Delivery 02/13/25 19:06 Temperature 97.9 F Pulse Rate 54 L Respiratory Rate 18 Blood Pressure 154/88 H Pulse Oximetry 95 Oxygen Delivery Exam Narrative: General: Well-developed female lying on her left side in bed no distress. Weight: 57.4 kg. BMI: 23.1. HEENT: PERRL, EOMI. Sclerae anicteric. Moist mucous membranes. Neck: Supple. No jugular venous distention. Respiratory: Respirations are even and nonlabored. Few scattered rales noted. Cardiovascular: Irregularly irregular rate and rhythm. Telemetry shows slow atrial fibrillation with rates in the 50s. 2/6 systolic murmur at the upper sternal border. Gastrointestinal: Abdomen is soft, nontender, and nondistended with positive bowel sounds. No organomegaly. No CVA tenderness. Skin: Warm and dry. No rash or lesions on limited exam. Extremities: No cyanosis, clubbing, or edema. Radial and pedal pulses intact. Neurological: Alert. Cranial nerves 2-12 grossly intact. Left upper extremity contracted from prior stroke. Psychiatric: Pleasant and cooperative with normal mood and affect. H&P: Results Labs Labs: Short CBC 02/13/25 Range/Units 16:37 WBC 6.3 (4.5-10.0) K/mm3 Hgb 11.8 L (12.0-15.0) g/dL Hct 38.1 (37.0-47.0) % Plt Count 172 D (150-375) k/mm3 BMP 02/13/25 16:37 Sodium 140 Potassium 4.9 Chloride 107 Carbon Dioxide 21 L BUN 25 H Creatinine 1.59 H Glucose 116 H Calcium 9.2 Liver Function 02/13/25 Range/Units 16:37 Total Bilirubin 0.4 (0.2-1.3) mg/dL AST 36 (14-36) U/L ALT 23 (6-35) U/L Alkaline Phosphatase 83 (38-126) U/L Albumin 4.5 (3.5-5.1) g/dL Urine 02/13/25 Range/Units 16:31 Urine Color Yellow (Yellow) Urine Appearance Cloudy H (Clear) Urine pH 5.5 (5.0-9.0) Ur Specific [place] 1.028 (1.001-1.035) Urine Protein 3+ H (Negative) mg/dL Urine Glucose (UA) 3+ H (Negative) mg/dL Imaging Chest X-Ray 02/13/25 17:02 IMPRESSION: 1. Cardiomegaly with cardiac decompensation and possible pulmonary edema. Pneumonitis is not excluded. 2. Left basilar atelectasis versus pneumonia. Abdomen/Pelvis CT 02/13/25 19:18 IMPRESSION: 1. No evidence of appendicitis, diverticulitis or intestinal obstruction. 2. Cholelithiasis. 3. Fat infiltration of the liver. 4. Cardiomegaly. 5. Nodule in the left lung base unchanged from previous examination. Assessment and Plan Assessment and plan (1) Urinary tract infection: Code(s): N39.0 - Urinary tract infection, site not specified Status: Acute (2) Atrial fibrillation with slow ventricular response: Code(s): I48.91 - Unspecified atrial fibrillation Status: Acute (3) Hypothyroidism: Code(s): E03.9 - Hypothyroidism, unspecified Status: Acute (4) Diastolic dysfunction: Code(s): I51.89 - Other ill-defined heart diseases Status: Acute (5) Type 2 diabetes mellitus: Code(s): E11.9 - Type 2 diabetes mellitus without complications Status: Acute (6) Right-sided heart failure: Code(s): I50.810 - Right heart failure, unspecified Status: Acute Plan The patient presented to the emergency department with complaints of weakness, abdominal discomfort, urinary urgency, and mild shortness of breath from baseline as detailed in HPI. Labs, imaging, EKG, and all reports were personally reviewed. She has evidence of urinary tract infection has been started on ceftriaxone, pending urine culture. Chest x-ray was read as having interstitial infiltrates which could be edema or pneumonia. Pneumonia seems less likely however will continue with azithromycin for now. She does not appear to be decompensated with regards to her right-sided heart failure or diastolic dysfunction. She is in slow atrial fibrillation with rates as low as the 30s however her blood pressures have remained stable. TSH is markedly elevated and T4 is subsequently low which could be playing a factor in the bradycardia. Increase levothyroxine dose to 100 mcg from 50 mcg; she will need follow-up labs as an outpatient in a few weeks. She denies taking more medication than prescribed nonetheless she did receive a dose of glucagon on the off chance that she may have taken extra metoprolol. Metoprolol has been placed on hold for now. She is currently off apixaban due to hemorrhoidal bleeding. Hold metformin as she received IV contrast. Initiate sliding scale insulin, Accu-Cheks, and hypoglycemic protocol. The rest of her home medications will be reviewed and resumed as appropriate. Findings and treatment plan were discussed with the patient. Questions were solicited and answered to satisfaction. The patient's medical management will be taken over by the hospitalist team in a.m. Quality VTE Prophylaxis VTE prophylaxis: mechanical ordered If No VTE Prophylaxis Answer both mechanical and pharmacologic: Reason no pharmacologic proph: medical contraindication (apixaban held as an outpatient due to hemorrhoidal bleeding) The patient has been admitted under observation status. Hospitalist [facility] Advance Care Plan I have confirmed that the patient's Advanced Care Plan is present, code status is documented, or surrogate decision maker is listed in patient medical record.: Yes Medication Reconciliation I have utilized all available resources to obtain, update and review the patients current medications (includes all prescriptions, OTC, herbals, cannabis, and nutritional supplements).: Yes
--- NOTE | 2025-02-13 19:47 | P.CONCA_ITS ---
Assessment and Plan Assessment and plan (1) Atrial fibrillation with slow ventricular response: Code(s): I48.91 - Unspecified atrial fibrillation Status: Acute Assessment and Plan: [id number] 3.Eliquis on hold due to hemorroidal bleeding. On aspirin. Rate was bradycardic at 39 bpm, given Glucagon in ED. She did not tolerate Metoprolol due to bradycardia. Discuss Watchman device in prior office visit. Stop Metoprolol. Monitor HR. (2) Hypertension: Code(s): I10 - Essential (primary) hypertension Status: Acute Assessment and Plan: Stable. (3) Hyperlipidemia: Code(s): E78.5 - Hyperlipidemia, unspecified Status: Acute Assessment and Plan: On Atorvastatin. (4) Acute UTI: Code(s): N39.0 - Urinary tract infection, site not specified Status: Acute Assessment and Plan: On antibiotics as per hospitalist. History of Present Illness History of Present Illness Consult date/time: 02/13/25 19:47 Reason For Visit: slow atrial fib, UTI, pneumonitis Narrative: 84 yr old woman who is my regular cardiology patient presents to ER with weakness for 4 days. She has a history of atrial fibrillation, diastolic dysfunction, hypertension, dyslipidemia, former smoking. Reports weakness for 4 days. States she has TAYLOR with very short distances. Has some dry coughing. No fever or chills. In ED she was found to be bradycardic at 39 bpm in atrial fib and given a dose of Glucagon. She was also found to have possible pneumonia and UTI. She would like to have hemorrhoidal surgery as she is having bleeding. She feels OK today. Normally she can walk up to 1/2 block with her walker prior to TAYLOR. Denies orthopnea, PND, edema, dizziness, palpitations. Cardiovascular Procedures Echo/MUGA:: 10/13/24 Echo: EF 65-70%, mild LVH, diastolic dysfunction (E/e' 16), severe LAE, mod JARED, mild-mod MR, mild TR, trace PI, trace pericardial effusion. 03/13/23 Echo: EF 60-65%, mild LVH, diastolic dysfunction (E/e' 24), severe LAE, mild JARED, mild MR, mod TR, RVSP 70 mmHg. Electrophysiology:: 10/21/24 EKG: Atrial fibrillation at 70 bpm, PVC's, cannot r/o septal infarct, age indeterminate. 08/31/23 EKG: Atrial fibrillation at 44 bpm, cannot r/o septal infarct. 03/12/23 EKG: Atrial fibrillation at 65 bpm, delayed precordial R/S transition, borderline T wave in inferior leads. Stress Tests:: 10/21/24 CXR: ILD. Left basilar pneumonia. Review of Systems 2 Review of Systems: All systems reviewed & are unremarkable except as noted in HPI and below Constitutional: Constitutional: Reports as per HPI, Denies chills, Reports fatigue and Denies fever(s) Cardiovascular: Cardiovascular: Reports as per HPI, Denies chest pain and Denies irregular heart rhythm Respiratory: Respiratory: Reports as per HPI, Reports cough and Reports dyspnea on exertion Gastrointestinal: Gastrointestinal: Reports as per HPI and Reports abdominal pain Genitourinary: Genitourinary: Reports as per HPI Musculoskeletal: Musculoskeletal: Reports as per HPI Neurologic: Reports as per HPI, Denies dizziness and Denies syncope [facility] Past Medical History Medical History Acute on chronic kidney failure Diabetes Right-sided heart failure Aortic valve stenosis Mild aortic valve stenosis with a valve area of 1.5 cm2 on echocardiogram in March 2022. Pulmonary hypertension Severe pulmonary hypertension with a PASP of 69 mmHg on echocardiogram in March 2022. 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 CODE STATUS: She is okay with CPR and medications but does not wish to be intubated. Modified code, updated. Smoking packs per day: 3 Smoking cigarettes per day: 60.0 Years smoked: 50 Smoking pack-years: 150.00 Smoking status: Former smoker Tobacco type: cigarettes Smoking end date: 06/08/20 Alcohol intake: never Substance use: never Substance use type: does not use Do You Feel Safe in your Home?: Yes Lack of Transportation: YES Lack of Food: Never True Current Housing: I Have Housing Concerned About Future Housing: No Difficulty Paying Gas/Electric Bills: No Difficulty Paying for Meds: No Currently Unemployed: No Education: Decline to Answer Difficulty w/ Childcare or Family Care: No Additional living arrangements comments: Assisted living at [facility]. Additional occupation/education comments: Retired. Spiritual care concerns: No Meds Home Medications and Allergies Home Medications ?Medication ?Instructions ?Recorded ?Confirmed ?Type apixaban 2.5 mg tablet (Eliquis) 2.5 mg PO BID 07/03/21 02/13/25 History atorvastatin 80 mg tablet 80 mg PO DAILY 07/03/21 02/13/25 History amlodipine 5 mg tablet (Norvasc) 5 mg PO QAM 1 month #30 tabs 03/15/23 02/13/25 Rx empagliflozin 10 mg tablet 10 mg PO DAILY 1 month #30 tabs 03/15/23 02/13/25 Rx (Jardiance) metoprolol succinate 50 mg 50 mg PO DAILY 10/30/23 02/13/25 History tablet,extended release 24 hr albuterol sulfate 90 mcg/actuation 2 puff inhalation Q4H PRN 06/23/24 02/13/25 History aerosol inhaler Shortness Of Breath fluoxetine 20 mg capsule 20 mg PO DAILY 06/23/24 02/13/25 History glimepiride 2 mg tablet 2 mg PO DAILY 06/23/24 02/13/25 History levothyroxine 50 mcg tablet 50 mcg PO DAILY 06/23/24 02/13/25 History metformin 500 mg tablet,extended 500 mg PO DAILY 06/23/24 02/13/25 History release 24 hr docusate sodium 100 mg capsule 100 mg PO BID #60 caps 07/01/24 02/13/25 Rx magnesium citrate (OneLAX 300 ml PO ONCE PRN constipation 07/01/24 02/13/25 Rx Magnesium Citrate oral solution) #296 mL famotidine 20 mg tablet 20 mg PO DAILY 11/25/24 02/13/25 History aspirin 325 mg tablet 325 mg PO DAILY 01/20/25 02/13/25 History spironolactone 25 mg tablet 25 mg PO DAILY 02/13/25 02/13/25 History Allergies Allergy/AdvReac Type Severity Reaction Status Date / Time No Known Drug Allergies Allergy Unknown Unknown Verified 02/13/25 16:32 Vital Signs Vital Signs - 24 hr 02/13/25 16:00 02/13/25 16:26 02/13/25 16:46 Temperature 98.2 F Pulse Rate 43 L 46 L Respiratory Rate 17 Blood Pressure 134/62 Pulse Oximetry 100 98 Oxygen Delivery Room Air Room Air 02/13/25 17:22 02/13/25 17:47 02/13/25 18:17 Temperature 98.1 F Pulse Rate 51 L 49 L 54 L Respiratory Rate 14 16 15 Blood Pressure 150/73 H 135/72 124/63 Pulse Oximetry 97 97 97 Oxygen Delivery 02/13/25 18:40 02/13/25 19:06 Temperature 98.1 F 97.9 F Pulse Rate 54 L 54 L Respiratory Rate 17 18 Blood Pressure 124/63 154/88 H Pulse Oximetry 98 95 Oxygen Delivery Exam 2 Const: General: cooperative, healthy appearing and comfortable Resp: Auscultation: clear to auscultation bilaterally, no crackles, no rales, no rhonchi and no wheezes Cardio: Rate: regular rate Rhythm: abnormal rhythm Heart sounds: no murmurs Peripheral pulses: dorsalis pedis present GI: GI Palp: No abdominal tenderness and Yes Soft to palpation Neuro: General: oriented to person, oriented to place and oriented to time Extrem: Right lower extremity: no edema Left lower extremity: no edema Results Labs and Meds 02/13/25 16:37 02/13/25 16:37 Lab results: Cardiac Enzymes 02/13/25 Range/Units 16:37 AST 36 (14-36) U/L CBC 02/13/25 Range/Units 16:37 WBC 6.3 (4.5-10.0) K/mm3 RBC 4.27 (4.2-5.4) M/mm3 Hgb 11.8 L (12.0-15.0) g/dL Hct 38.1 (37.0-47.0) % Plt Count 172 D (150-375) k/mm3 Lymph # (Auto) 0.74 L (0.9-3.2) K/mm3 [place] # (Auto) 0.8 H (0.1-0.6) K/mm3 Eos # (Auto) 0.1 (0-0.3) K/mm3 Baso # (Auto) 0.0 (0.0-0.1) K/mm3 Comprehensive Metabolic Panel 02/13/25 Range/Units 16:37 Sodium 140 (137-145) mmol/L Potassium 4.9 (3.4-5.0) mmol/L Chloride 107 (98-107) mmol/L Carbon Dioxide 21 L (22-30) mmol/L BUN 25 H (7-17) mg/dL Creatinine 1.59 H (0.7-1.0) mg/dL Glucose 116 H (65-110) mg/dL Calcium 9.2 (8.4-10.2) mg/dL AST 36 (14-36) U/L ALT 23 (6-35) U/L Alkaline Phosphatase 83 (38-126) U/L Total Protein 7.8 (6.3-8.2) g/dL Albumin 4.5 (3.5-5.1) g/dL Intake and Output 02/13/25 02/13/25 02/13/25 07:59 15:59 23:59 Intake Total 50 Output Total 100 Balance -50 Intake: IV 50 cefTRIAXone 1 GM/NS 50 ML 1 gm 50 In 50 ml @ 100 mls/hr IVPB ONCE STA Rx#:[id number] Output: Urine 100 Patient Weight 02/13/25 23:59 Weight 57.4 kg
[2025-02-13] MEDS: AZITHROMYCIN 500 MG/NS 250 ML 500 MG/250 ML BAG 250 MG IVPB (20:45)
[2025-02-14] VITALS (16 sets, daily range): BP systolic 99–169; BP diastolic 44–84; PULSE 41–423; RESP 16–20; TEMP 36.4–36.9; O2SAT 93–100
[2025-02-14 04:50] LABS: Hemoglobin 11.9 g/dL (12.0-15.0); Mean Corpuscular HGB Conc 30.5 g/dl (32-36); Mean Corpuscular Hemoglobin 27.3 pg (26-34); Mean Corpuscular Volume 89.4 fl (80-100); Platelet Count Result 154 k/mm3 (150-375); Red Blood Count 4.36 M/mm3 (4.2-5.4); Red Cell Distribution Width 13.2 % (11.5-14.5); White Blood Count 6.4 K/mm3 (4.5-10.0)
[2025-02-14 05:06] LABS: Anion Gap 13 mmol/L (4-12); Blood Urea Nitrogen 22 mg/dL (7-17); Calcium 9.2 mg/dL (8.4-10.2); Carbon Dioxide 19 mmol/L (22-30); Chloride 107 mmol/L (98-107); Estimated CRCL calculation 22 ml/min; Estimated Glomerular Filt Rate 38; Glucose 41 mg/dL (65-110); Magnesium 2.3 mg/dL (1.6-2.3); Potassium 4.4 mmol/L (3.4-5.0); Sodium 139 mmol/L (137-145)
[2025-02-14] MEDS: DEXTROSE 50% 25 GM/50 ML SYRINGE IV PUSH (05:15)
[2025-02-14 05:20] LABS: Glucose Point of Care 44 mg/dl (65-105)
[2025-02-14] MEDS: LEVOTHYROXINE SODIUM 100 MCG TABLET PO (05:22)
[2025-02-14 05:43] LABS: Glucose Point of Care 204 mg/dl (65-105)
[2025-02-14 08:00] LABS: Glucose Point of Care 213 mg/dl (65-105)
--- NOTE | 2025-02-14 08:17 | PM.PNCARD ---
Progress Note: A&P Assessment and Plan (1) Atrial fibrillation with slow ventricular response: Code(s): I48.91 - Unspecified atrial fibrillation Status: Acute Assessment and Plan: [id number] 3.Eliquis on hold due to hemorrhoidal bleeding. On aspirin. Rate was bradycardic at 39 bpm, given Glucagon in ED. She did not tolerate Metoprolol due to bradycardia. Discuss Watchman device in prior office visit. She would like to have hemorrhoid surgery, awaiting outpatient nuclear stress test first. Stopped Metoprolol. Heart rate is stable. No further cardiac workup. Will sign off, please call with any questions. (2) Hypertension: Code(s): I10 - Essential (primary) hypertension Status: Acute Assessment and Plan: Stable. (3) Hyperlipidemia: Code(s): E78.5 - Hyperlipidemia, unspecified Status: Acute Assessment and Plan: On Atorvastatin. (4) Acute UTI: Code(s): N39.0 - Urinary tract infection, site not specified Status: Acute Assessment and Plan: On antibiotics as per hospitalist. Subjective Date/time seen: 02/14/25 08:17 Interval history: She feels weak. No chest pain or sob. Exam Const: General: cooperative, healthy appearing and comfortable Orientation/consciousness: oriented to person, oriented to place and oriented to time Resp: Auscultation: clear to auscultation bilaterally, no crackles, no rales, no rhonchi and no wheezes Cardio: Rate: regular rate Rhythm: abnormal rhythm Heart sounds: no murmurs Peripheral pulses: dorsalis pedis present Neuro: General: oriented to person, oriented to place and oriented to time Extrem: Right lower extremity: no edema Left lower extremity: no edema Objective Data Vital Signs Vital Signs: Vital Signs - 24 hr 02/13/25 16:00 02/13/25 16:26 02/13/25 16:46 Temperature 98.2 F Pulse Rate 43 L 46 L Respiratory Rate 17 Blood Pressure 134/62 Pulse Oximetry 100 98 Oxygen Delivery Room Air Room Air 02/13/25 17:22 02/13/25 17:47 02/13/25 18:17 Temperature 98.1 F Pulse Rate 51 L 49 L 54 L Respiratory Rate 14 16 15 Blood Pressure 150/73 H 135/72 124/63 Pulse Oximetry 97 97 97 Oxygen Delivery 02/13/25 18:40 02/13/25 19:06 02/13/25 20:00 Temperature 98.1 F 97.9 F Pulse Rate 54 L 54 L 64 Respiratory Rate 17 18 Blood Pressure 124/63 154/88 H Pulse Oximetry 98 95 Oxygen Delivery 02/13/25 20:00 02/13/25 20:32 02/13/25 22:00 Temperature Pulse Rate 59 L 54 L 63 Respiratory Rate 18 Blood Pressure Pulse Oximetry 95 Oxygen Delivery Room Air 02/14/25 00:00 02/14/25 00:00 02/14/25 00:02 Temperature 97.7 F Pulse Rate 63 65 63 Respiratory Rate 16 16 Blood Pressure 157/67 H Pulse Oximetry 93 93 Oxygen Delivery Room Air 02/14/25 01:50 02/14/25 04:00 02/14/25 04:00 Temperature 98 F Pulse Rate 56 L 62 53 L Respiratory Rate 20 Blood Pressure 138/58 L Pulse Oximetry 100 Oxygen Delivery 02/14/25 04:00 02/14/25 05:50 Temperature Pulse Rate 53 L 76 Respiratory Rate 20 Blood Pressure Pulse Oximetry 100 Oxygen Delivery Room Air Intake/Output Intake/Output: Intake & Output 02/11/25 02/12/25 02/13/25 02/14/25 23:59 23:59 23:59 23:59 Intake Total 300 300 Output Total 100 750 Balance 200 -450 Meds/Results Medications: Active Medications Generic Name Dose Route Start Last Admin Trade Name Freq PRN Reason Stop Dose Admin Acetaminophen 650 mg 02/13/25 22:31 Acetaminophen 325 Mg Tablet PO Q6H PRN Mild Pain (1-3) or Fever Albuterol 2 puff 02/13/25 20:58 Albuterol Sulfate (*Sp) Aerosol 1 Puff INHALATION Q4HRT PRN Shortness Of Breath Amlodipine Besylate 5 mg 02/14/25 09:00 Amlodipine Besylate 5 Mg Tablet PO QAM ORLY Atorvastatin Calcium 80 mg 02/14/25 09:00 Atorvastatin 40 Mg Tablet PO DAILY ORLY Dextrose 12.5 gm 02/13/25 22:31 02/14/25 05:15 Dextrose 50% 25 Gm/50 Ml Syringe IV PUSH 12.5 gm PRN PRN Administration Hypoglycemia Protocol Docusate Sodium 100 mg 02/14/25 09:00 Docusate Sodium 100 Mg Capsule PO BID [facility] Empagliflozin 10 mg 02/14/25 09:00 Empagliflozin 10 Mg Tablet PO DAILY [facility] Famotidine 20 mg 02/14/25 09:00 Famotidine 20 Mg Tablet PO DAILY [facility] Fluoxetine HCl 20 mg 02/14/25 09:00 Fluoxetine Hcl 20 Mg Capsule PO DAILY [facility] Glucagon 1 mg 02/13/25 22:31 Glucagon For Inj 1 Mg Vial IM PRN PRN Hypoglycemia Protocol Glucose 15 gm 02/13/25 22:31 Glucose Oral Gel 15 Gm Of Glucse In 37.5 Gm Tube PO PRN PRN Hypoglycemia Protocol Hydralazine HCl 10 mg 02/14/25 09:00 Hydralazine 10 Mg Tablet PO BID [facility] Ceftriaxone Sodium 1 gm in 50 mls @ 100 mls/hr 02/14/25 18:00 Rocephin 1 Gm/Ns 50 Ml IVPB Q24H ORLY Azithromycin 500 mg in 250 mls @ 250 mls/hr 02/14/25 20:00 Zithromax IVPB Q24H [facility] Dextrose 1,000 mls @ 100 mls/hr 02/13/25 22:31 Dextrose 5% 1,000 Ml IVPB PRN PRN Hypoglycemia Protocol Insulin Aspart 1 - 2 units 02/14/25 21:00 Insulin Aspart (*Bkc) 100 Units/Ml SUB-Q HS [facility] Protocol Insulin Aspart 2 - 5 units 02/14/25 08:00 Insulin Aspart (*Bkc) 100 Units/Ml SUB-Q TIDWM [facility] Protocol Levothyroxine Sodium 100 mcg 02/14/25 06:30 02/14/25 05:22 Levothyroxine Sodium 100 Mcg Tablet PO 100 mcg DAILY@0630 [facility] Administration Magnesium Citrate 300 ml 02/13/25 20:58 Magnesium Citrate 300 Ml Btl PO ONCE PRN constipation Spironolactone 25 mg 02/14/25 09:00 Spironolactone 25 Mg Tablet PO DAILY [facility] Radiology Results: ITS Impressions Chest X-Ray 02/13/25 17:02 IMPRESSION: Cardiomegaly with cardiac decompensation and possible pulmonary edema. Pneumonitis is not excluded. Left basilar atelectasis versus pneumonia. Abdomen/Pelvis CT 02/13/25 19:18 IMPRESSION: 1. No evidence of appendicitis, diverticulitis or intestinal obstruction. 2. Cholelithiasis. 3. Fat infiltration of the liver. 4. Cardiomegaly. 5. Nodule in the left lung base unchanged from previous examination. Labs Labs: Laboratory Results - last 24 hr 02/13/25 02/13/25 02/13/25 16:19 16:31 16:37 WBC 6.3 RBC 4.27 Hgb 11.8 L Hct 38.1 MCV 89.2 MCH 27.6 MCHC 31.0 L RDW 13.2 Plt Count 172 D MPV 9.6 Immature Gran % (Auto) 1.1 H Neut % (Auto) 72.8 Lymph % (Auto) 11.8 L [place] % (Auto) 12.6 H Eos % (Auto) 1.4 Baso % (Auto) 0.3 Lymph # (Auto) 0.74 L [place] # (Auto) 0.8 H Eos # (Auto) 0.1 Baso # (Auto) 0.0 Abs Immat Gran (auto) 0.07 H Absolute Neuts (auto) 4.6 Absolute Nucleated RBC 0.000 Nucleated RBC % 0.0 Sodium 140 Potassium 4.9 Chloride 107 Carbon Dioxide 21 L Anion Gap 12 BUN 25 H Creatinine 1.59 H Estim Creat Clear Calc 19 Estimated GFR 31 L Glucose 116 H POC Capillary Glucose 93 Calcium 9.2 Magnesium 2.1 Total Bilirubin 0.4 AST 36 ALT 23 Alkaline Phosphatase 83 Total Protein 7.8 Albumin 4.5 TSH (Reflex) > 100.000 H Free T4 0.69 L Urine Color Yellow Urine Appearance Cloudy H Urine pH 5.5 Ur Specific [place] 1.028 Urine Protein 3+ H Urine Glucose (UA) 3+ H Urine Ketones Trace H Ur Blood (Man) Trace Urine Nitrate Positive H Urine Bilirubin Negative Urine Urobilinogen 1.0 Leukocyte Esterase Rfl 1+ H Urine RBC 0-2 Urine WBC >100 H Ur Squamous Epith Cells None seen Urine Bacteria 4+ H Urine Casts 3-5 Hyaline Casts Present Influenza A (RT-PCR) Negative Influenza B (RT-PCR) Negative RSV (RT-PCR) Negative SARS-CoV-2 RNA (RT-PCR) Negative 02/13/25 02/14/25 02/14/25 17:20 04:03 04:04 WBC 6.4 RBC 4.36 Hgb 11.9 L Hct 39.0 MCV 89.4 MCH 27.3 MCHC 30.5 L RDW 13.2 Plt Count 154 MPV 10.0 Immature Gran % (Auto) Neut % (Auto) Lymph % (Auto) [place] % (Auto) Eos % (Auto) Baso % (Auto) Lymph # (Auto) [place] # (Auto) Eos # (Auto) Baso # (Auto) Abs Immat Gran (auto) Absolute Neuts (auto) Absolute Nucleated RBC Nucleated RBC % Sodium 139 Potassium 4.4 Chloride 107 Carbon Dioxide 19 L Anion Gap 13 H BUN 22 H Creatinine 1.34 H Estim Creat Clear Calc 22 Estimated GFR 38 L Glucose 41 L* POC Capillary Glucose 161 H Calcium 9.2 Magnesium 2.3 Total Bilirubin AST ALT Alkaline Phosphatase Total Protein Albumin TSH (Reflex) Free T4 Urine Color Urine Appearance Urine pH Ur Specific [place] Urine Protein Urine Glucose (UA) Urine Ketones Ur Blood (Man) Urine Nitrate Urine Bilirubin Urine Urobilinogen Leukocyte Esterase Rfl Urine RBC Urine WBC Ur Squamous Epith Cells Urine Bacteria Urine Casts Hyaline Casts Influenza A (RT-PCR) Influenza B (RT-PCR) RSV (RT-PCR) SARS-CoV-2 RNA (RT-PCR) 02/14/25 02/14/25 02/14/25 05:14 05:41 07:23 WBC RBC Hgb Hct MCV MCH MCHC RDW Plt Count MPV Immature Gran % (Auto) Neut % (Auto) Lymph % (Auto) [place] % (Auto) Eos % (Auto) Baso % (Auto) Lymph # (Auto) [place] # (Auto) Eos # (Auto) Baso # (Auto) Abs Immat Gran (auto) Absolute Neuts (auto) Absolute Nucleated RBC Nucleated RBC % Sodium Potassium Chloride Carbon Dioxide Anion Gap BUN Creatinine Estim Creat Clear Calc Estimated GFR Glucose POC Capillary Glucose 44 L* 204 H 213 H Calcium Magnesium Total Bilirubin AST ALT Alkaline Phosphatase Total Protein Albumin TSH (Reflex) Free T4 Urine Color Urine Appearance Urine pH Ur Specific [place] Urine Protein Urine Glucose (UA) Urine Ketones Ur Blood (Man) Urine Nitrate Urine Bilirubin Urine Urobilinogen Leukocyte Esterase Rfl Urine RBC Urine WBC Ur Squamous Epith Cells Urine Bacteria Urine Casts Hyaline Casts Influenza A (RT-PCR) Influenza B (RT-PCR) RSV (RT-PCR) SARS-CoV-2 RNA (RT-PCR)
--- NOTE | 2025-02-14 09:07 | PM.IMPN ---
Progress Note: A&P Assessment and Plan (1) Urinary tract infection: Code(s): N39.0 - Urinary tract infection, site not specified Status: Acute (2) Atrial fibrillation with slow ventricular response: Code(s): I48.91 - Unspecified atrial fibrillation Status: Acute (3) Hypothyroidism: Code(s): E03.9 - Hypothyroidism, unspecified Status: Acute (4) Diastolic dysfunction: Code(s): I51.89 - Other ill-defined heart diseases Status: Acute (5) Type 2 diabetes mellitus: Code(s): E11.9 - Type 2 diabetes mellitus without complications Status: Acute (6) Right-sided heart failure: Code(s): I50.810 - Right heart failure, unspecified Status: Acute Plan The patient presented to the emergency department with complaints of weakness, abdominal discomfort, urinary urgency, and mild shortness of breath from baseline in the last few months Chest x-ray was read as having interstitial infiltrates which could be edema or pneumonia. Bradycardia Cardiology consulted, appreciate recommendations Planning outpatient stress test, possible watchman Treatment of hypothyroidism Monitoring on tele Pneumonia Pneumonia seems less likely however will continue with azithromycin for now. She does not appear to be decompensated with regards to her right-sided heart failure or diastolic dysfunction. She is in slow atrial fibrillation with rates as low as the 30s however her blood pressures have remained stable. Hypothyroidism Home med: Levothyroxine 50mg daily TSH is markedly elevated (>100) and T4 also low which may be contributing to bradycardia. She reports difficulty gaining weight. --Increased levothyroxine dose to 100 mcg from 50 mcg --Given a dose of glucagon in case she took extra metroprolol, but no change. Patient does not think she took additional metoprolol. continue to hold. --Repeat TSH today Abdominal pain 2/2 UTI or consider transient mesenteric ischemia 2/2 bradycardia --Resolved, monitor --Treatment of bradycardia as noted --Check lactate, repeat AG Afib Currently off apixaban due to hemorrhoidal bleeding. Hemorrhoids Topical steroids, witch sujatha prn Hypoglycemia Diabetes Home meds: Glimeperide 2mg daily, Metformin 500mg daily, Jardiance 10mg daily Hypoglycemic in the ED, 41-44, now trending up. Was NPO for over 24 hours --Holding glimeperide and metformin --Continue jardiance, SSI --Continue sliding scale insulin, Accu-Cheks, and hypoglycemic protocol. UTI She has evidence of urinary tract infection --Follow urine culture --Continue Ceftriaxone Code status: Full code. Patient agreeable to CPR and intubation short term for reversible causes. Would not want extraordinary measures and will discuss with son. Time Spent With Patient Time: 56 Subjective Date/time seen: 02/14/25 09:07 Interval history: She feels weak. No chest pain or sob at rest. Abdominal pain resolved Reported generalized abdominal pain, resolved after voiding but no pain during urination Reports shortness of breath with activity, new in the last 6 months. Cardiology planning an outpatient follow up for a watchman procedure and stress test. Has frequent bleeding from hemorrhoids, last over a week ago Blood sugar low Would not wish to have extraordinary measures but would be agreeable to intubation and CPR for reversible causes (possible extubation the next day for example). Changed to a Full code. Asked patient to talk to her son so he is aware of her wishes. Indicated that she would not wish to be intubated for weeks or to have extraordinary measures Review of Systems Review of Systems: 12 systems were reviewed and are negative except for as per HPI. Exam Narrative: General: Well-developed female lying on her left side in bed no distress. Weight: 57.4 kg. BMI: 23.1. HEENT: PERRL, EOMI. Sclerae anicteric. Moist mucous membranes. Neck: Supple. No jugular venous distention. Respiratory: Respirations are even and nonlabored. Few scattered rales noted. Cardiovascular: Irregularly irregular rate and rhythm. Telemetry shows slow atrial fibrillation with rates in the 50s. 2/6 systolic murmur at the upper sternal border. Gastrointestinal: Abdomen is soft, nontender, and nondistended with positive bowel sounds. No organomegaly. No CVA tenderness. Skin: Warm and dry. No rash or lesions on limited exam. Extremities: No cyanosis, clubbing, or edema. Radial and pedal pulses intact. Neurological: Alert. Cranial nerves 2-12 grossly intact. Left upper extremity contracted from prior stroke. Psychiatric: Pleasant and cooperative with normal mood and affect. Objective Data Vital Signs Vital Signs: Vital Signs - 24 hr 02/13/25 16:00 02/13/25 16:26 02/13/25 16:46 Temperature 98.2 F Pulse Rate 43 L 46 L Respiratory Rate 17 Blood Pressure 134/62 Pulse Oximetry 100 98 Oxygen Delivery Room Air Room Air 02/13/25 17:22 02/13/25 17:47 02/13/25 18:17 Temperature 98.1 F Pulse Rate 51 L 49 L 54 L Respiratory Rate 14 16 15 Blood Pressure 150/73 H 135/72 124/63 Pulse Oximetry 97 97 97 Oxygen Delivery 02/13/25 18:40 02/13/25 19:06 02/13/25 20:00 Temperature 98.1 F 97.9 F Pulse Rate 54 L 54 L 64 Respiratory Rate 17 18 Blood Pressure 124/63 154/88 H Pulse Oximetry 98 95 Oxygen Delivery 02/13/25 20:00 02/13/25 20:32 02/13/25 22:00 Temperature Pulse Rate 59 L 54 L 63 Respiratory Rate 18 Blood Pressure Pulse Oximetry 95 Oxygen Delivery Room Air 02/14/25 00:00 02/14/25 00:00 02/14/25 00:02 Temperature 97.7 F Pulse Rate 63 65 63 Respiratory Rate 16 16 Blood Pressure 157/67 H Pulse Oximetry 93 93 Oxygen Delivery Room Air 02/14/25 01:50 02/14/25 04:00 02/14/25 04:00 Temperature 98 F Pulse Rate 56 L 62 53 L Respiratory Rate 20 Blood Pressure 138/58 L Pulse Oximetry 100 Oxygen Delivery 02/14/25 04:00 02/14/25 05:50 02/14/25 08:00 Temperature 97.5 F L Pulse Rate 53 L 76 61 Respiratory Rate 20 16 Blood Pressure 169/65 H Pulse Oximetry 100 97 Oxygen Delivery Room Air Intake/Output Intake/Output: Intake & Output 02/11/25 02/12/25 02/13/25 02/14/25 23:59 23:59 23:59 23:59 Intake Total 300 300 Output Total 100 750 Balance 200 -450 Meds/Results Medications: Active Medications Generic Name Dose Route Start Last Admin Trade Name Freq PRN Reason Stop Dose Admin Acetaminophen 650 mg 02/13/25 22:31 Acetaminophen 325 Mg Tablet PO Q6H PRN Mild Pain (1-3) or Fever Albuterol 2 puff 02/13/25 20:58 Albuterol Sulfate (*Sp) Aerosol 1 Puff INHALATION Q4HRT PRN Shortness Of Breath Amlodipine Besylate 5 mg 02/14/25 09:00 Amlodipine Besylate 5 Mg Tablet PO QAM [facility] Atorvastatin Calcium 80 mg 02/14/25 09:00 Atorvastatin 40 Mg Tablet PO DAILY [facility] Dextrose 12.5 gm 02/13/25 22:31 02/14/25 05:15 Dextrose 50% 25 Gm/50 Ml Syringe IV PUSH 12.5 gm PRN PRN Administration Hypoglycemia Protocol Docusate Sodium 100 mg 02/14/25 09:00 Docusate Sodium 100 Mg Capsule PO BID [facility] Empagliflozin 10 mg 02/14/25 09:00 Empagliflozin 10 Mg Tablet PO DAILY [facility] Famotidine 20 mg 02/14/25 09:00 Famotidine 20 Mg Tablet PO DAILY [facility] Fluoxetine HCl 20 mg 02/14/25 09:00 Fluoxetine Hcl 20 Mg Capsule PO DAILY [facility] Glucagon 1 mg 02/13/25 22:31 Glucagon For Inj 1 Mg Vial IM PRN PRN Hypoglycemia Protocol Glucose 15 gm 02/13/25 22:31 Glucose Oral Gel 15 Gm Of Glucse In 37.5 Gm Tube PO PRN PRN Hypoglycemia Protocol Hydralazine HCl 10 mg 02/14/25 09:00 Hydralazine 10 Mg Tablet PO BID [facility] Ceftriaxone Sodium 1 gm in 50 mls @ 100 mls/hr 02/14/25 18:00 Rocephin 1 Gm/Ns 50 Ml IVPB Q24H [facility] Azithromycin 500 mg in 250 mls @ 250 mls/hr 02/14/25 20:00 Zithromax IVPB Q24H [facility] Dextrose 1,000 mls @ 100 mls/hr 02/13/25 22:31 Dextrose 5% 1,000 Ml IVPB PRN PRN Hypoglycemia Protocol Insulin Aspart 1 - 2 units 02/14/25 21:00 Insulin Aspart (*Bkc) 100 Units/Ml SUB-Q HS [facility] Protocol Insulin Aspart 2 - 5 units 02/14/25 08:00 Insulin Aspart (*Bkc) 100 Units/Ml SUB-Q TIDWM [facility] Protocol Levothyroxine Sodium 100 mcg 02/14/25 06:30 02/14/25 05:22 Levothyroxine Sodium 100 Mcg Tablet PO 100 mcg DAILY@0630 [facility] Administration Magnesium Citrate 300 ml 02/13/25 20:58 Magnesium Citrate 300 Ml Btl PO ONCE PRN constipation Spironolactone 25 mg 02/14/25 09:00 Spironolactone 25 Mg Tablet PO DAILY [facility] Radiology Results: ITS Impressions Chest X-Ray 02/13/25 17:02 IMPRESSION: Cardiomegaly with cardiac decompensation and possible pulmonary edema. Pneumonitis is not excluded. Left basilar atelectasis versus pneumonia. Abdomen/Pelvis CT 02/13/25 19:18 IMPRESSION: 1. No evidence of appendicitis, diverticulitis or intestinal obstruction. 2. Cholelithiasis. 3. Fat infiltration of the liver. 4. Cardiomegaly. 5. Nodule in the left lung base unchanged from previous examination. Labs Labs: Laboratory Results - last 24 hr 02/13/25 02/13/25 02/13/25 16:19 16:31 16:37 WBC 6.3 RBC 4.27 Hgb 11.8 L Hct 38.1 MCV 89.2 MCH 27.6 MCHC 31.0 L RDW 13.2 Plt Count 172 D MPV 9.6 Immature Gran % (Auto) 1.1 H Neut % (Auto) 72.8 Lymph % (Auto) 11.8 L Tama % (Auto) 12.6 H Eos % (Auto) 1.4 Baso % (Auto) 0.3 Lymph # (Auto) 0.74 L Tama # (Auto) 0.8 H Eos # (Auto) 0.1 Baso # (Auto) 0.0 Abs Immat Gran (auto) 0.07 H Absolute Neuts (auto) 4.6 Absolute Nucleated RBC 0.000 Nucleated RBC % 0.0 Sodium 140 Potassium 4.9 Chloride 107 Carbon Dioxide 21 L Anion Gap 12 BUN 25 H Creatinine 1.59 H Estim Creat Clear Calc 19 Estimated GFR 31 L Glucose 116 H POC Capillary Glucose 93 Calcium 9.2 Magnesium 2.1 Total Bilirubin 0.4 AST 36 ALT 23 Alkaline Phosphatase 83 Total Protein 7.8 Albumin 4.5 TSH (Reflex) > 100.000 H Free T4 0.69 L Urine Color Yellow Urine Appearance Cloudy H Urine pH 5.5 Ur Specific Fletcher 1.028 Urine Protein 3+ H Urine Glucose (UA) 3+ H Urine Ketones Trace H Ur Blood (Man) Trace Urine Nitrate Positive H Urine Bilirubin Negative Urine Urobilinogen 1.0 Leukocyte Esterase Rfl 1+ H Urine RBC 0-2 Urine WBC >100 H Ur Squamous Epith Cells None seen Urine Bacteria 4+ H Urine Casts 3-5 Hyaline Casts Present Influenza A (RT-PCR) Negative Influenza B (RT-PCR) Negative RSV (RT-PCR) Negative SARS-CoV-2 RNA (RT-PCR) Negative 02/13/25 02/14/25 02/14/25 17:20 04:03 04:04 WBC 6.4 RBC 4.36 Hgb 11.9 L Hct 39.0 MCV 89.4 MCH 27.3 MCHC 30.5 L RDW 13.2 Plt Count 154 MPV 10.0 Immature Gran % (Auto) Neut % (Auto) Lymph % (Auto) Tama % (Auto) Eos % (Auto) Baso % (Auto) Lymph # (Auto) Tama # (Auto) Eos # (Auto) Baso # (Auto) Abs Immat Gran (auto) Absolute Neuts (auto) Absolute Nucleated RBC Nucleated RBC % Sodium 139 Potassium 4.4 Chloride 107 Carbon Dioxide 19 L Anion Gap 13 H BUN 22 H Creatinine 1.34 H Estim Creat Clear Calc 22 Estimated GFR 38 L Glucose 41 L* POC Capillary Glucose 161 H Calcium 9.2 Magnesium 2.3 Total Bilirubin AST ALT Alkaline Phosphatase Total Protein Albumin TSH (Reflex) Free T4 Urine Color Urine Appearance Urine pH Ur Specific Fletcher Urine Protein Urine Glucose (UA) Urine Ketones Ur Blood (Man) Urine Nitrate Urine Bilirubin Urine Urobilinogen Leukocyte Esterase Rfl Urine RBC Urine WBC Ur Squamous Epith Cells Urine Bacteria Urine Casts Hyaline Casts Influenza A (RT-PCR) Influenza B (RT-PCR) RSV (RT-PCR) SARS-CoV-2 RNA (RT-PCR) 02/14/25 02/14/25 02/14/25 05:14 05:41 07:23 WBC RBC Hgb Hct MCV MCH MCHC RDW Plt Count MPV Immature Gran % (Auto) Neut % (Auto) Lymph % (Auto) Tama % (Auto) Eos % (Auto) Baso % (Auto) Lymph # (Auto) Tama # (Auto) Eos # (Auto) Baso # (Auto) Abs Immat Gran (auto) Absolute Neuts (auto) Absolute Nucleated RBC Nucleated RBC % Sodium Potassium Chloride Carbon Dioxide Anion Gap BUN Creatinine Estim Creat Clear Calc Estimated GFR Glucose POC Capillary Glucose 44 L* 204 H 213 H Calcium Magnesium Total Bilirubin AST ALT Alkaline Phosphatase Total Protein Albumin TSH (Reflex) Free T4 Urine Color Urine Appearance Urine pH Ur Specific Fletcher Urine Protein Urine Glucose (UA) Urine Ketones Ur Blood (Man) Urine Nitrate Urine Bilirubin Urine Urobilinogen Leukocyte Esterase Rfl Urine RBC Urine WBC Ur Squamous Epith Cells Urine Bacteria Urine Casts Hyaline Casts Influenza A (RT-PCR) Influenza B (RT-PCR) RSV (RT-PCR) SARS-CoV-2 RNA (RT-PCR) Quality VTE Prophylaxis VTE prophylaxis: mechanical ordered Hospitalist MIPS Advance Care Plan I have confirmed that the patient's Advanced Care Plan is present, code status is documented, or surrogate decision maker is listed in patient medical record.: Yes Medication Reconciliation I have utilized all available resources to obtain, update and review the patients current medications (includes all prescriptions, OTC, herbals, cannabis, and nutritional supplements).: Yes
[2025-02-14] MEDS: DOCUSATE SODIUM 100 MG CAPSULE PO ×2 (09:40→17:37)
[2025-02-14] MEDS: ATORVASTATIN 40 MG TABLET 80 MG PO (09:41)
[2025-02-14] MEDS: amLODIPine BESYLATE 5 MG TABLET PO (09:41)
[2025-02-14] MEDS: FAMOTIDINE 20 MG TABLET PO (09:41)
[2025-02-14] MEDS: FLUoxetine HCL 20 MG CAPSULE PO (09:41)
[2025-02-14] MEDS: SPIRONOLACTONE 25 MG TABLET PO (09:41)
[2025-02-14] MEDS: hydrALAZINE 10 MG TABLET PO ×2 (09:42→17:37)
[2025-02-14 11:35] LABS: Anion Gap 11 mmol/L (4-12); Blood Urea Nitrogen 22 mg/dL (7-17); Calcium 9.5 mg/dL (8.4-10.2); Carbon Dioxide 22 mmol/L (22-30); Chloride 104 mmol/L (98-107); Estimated CRCL calculation 22 ml/min; Estimated Glomerular Filt Rate 38; Glucose 183 mg/dL (65-110); Potassium 5.6 mmol/L (3.4-5.0); Sodium 137 mmol/L (137-145)
[2025-02-14 12:21] LABS: Glucose Point of Care 154 mg/dl (65-105)
[2025-02-14 12:50] LABS: Free T4 Free Thyroxine Reflex 0.91 ng/dL (0.78-2.19)
[2025-02-14 13:58] LABS: Total Triiodothyronine (T3) 0.68 NG/ML (0.82-1.58)
[2025-02-14 16:31] LABS: Glucose Point of Care 158 mg/dl (65-105)
[2025-02-14] MEDS: HYDROCORTISONE/PRAMOX 1% FOAM 10 GM CAN 1 APPLIC RECTAL ×2 (17:37→20:08)
[2025-02-14] MEDS: SODIUM CHLORIDE 0.9% IV 500 ML IV CONT (17:42)
[2025-02-14] MEDS: SODIUM ZIRCONIUM CYCLOSILICATE 10 GM POWD.PACK PO (17:42)
[2025-02-14 20:02] LABS: Glucose Point of Care 207 mg/dl (65-105)
[2025-02-14 20:02] LABS: Anion Gap 11 mmol/L (4-12); Blood Urea Nitrogen 22 mg/dL (7-17); Calcium 8.8 mg/dL (8.4-10.2); Carbon Dioxide 21 mmol/L (22-30); Chloride 105 mmol/L (98-107); Estimated CRCL calculation 20 ml/min; Estimated Glomerular Filt Rate 34; Glucose 180 mg/dL (65-110); Potassium 4.6 mmol/L (3.4-5.0); Sodium 137 mmol/L (137-145)
[2025-02-14] MEDS: AZITHROMYCIN 500 MG/NS 250 ML 500 MG/250 ML BAG 250 MG IVPB (20:05)
[2025-02-14] MEDS: INSULIN ASPART (*BKC) 100 UNITS/ML SUB-Q (20:17)
[2025-02-15] VITALS (17 sets, daily range): BP systolic 128–145; BP diastolic 58–81; PULSE 53–87; RESP 12–24; TEMP 36.7–36.9; O2SAT 93–100
[2025-02-15 04:43] LABS: Basophils Percent Auto 0.3 % (0.2-1.2); Eosinophils Absolute Auto 0.1 K/mm3 (0-0.3); Eosinophils Percent Auto 1.6 % (0-4.4); Hematocrit 35.3 % (37.0-47.0); Hemoglobin 10.7 g/dL (12.0-15.0); Immature Granulocyte Absolute 0.06 K/mm3 (0.00-0.031); Immature Granulocyte Percent A 0.8 % (0-0.5); Lymphocytes Absolute Auto 0.88 K/mm3 (0.9-3.2); Lymphocytes Percent Auto 11.4 % (18.3-44.2); Mean Corpuscular HGB Conc 30.3 g/dl (32-36); Mean Corpuscular Hemoglobin 27.2 pg (26-34); Mean Corpuscular Volume 89.6 fl (80-100); Monocytes Absolute Auto 1.2 K/mm3 (0.1-0.6); Monocytes Percent Auto 15.6 % (2.6-8.5); Neutrophils Absolute Auto 5.5 K/mm3 (1.3-6.7); Neutrophils Percent Auto 70.3 % (45.5-73.1); Platelet Count Result 151 k/mm3 (150-375); Red Blood Count 3.94 M/mm3 (4.2-5.4); Red Cell Distribution Width 13.2 % (11.5-14.5); White Blood Count 7.7 K/mm3 (4.5-10.0)
[2025-02-15 05:04] LABS: Alanine Aminotransferase 41 U/L (6-35); Albumin Level 3.9 g/dL (3.5-5.1); Alkaline Phosphatase 100 U/L (38-126); Anion Gap 9 mmol/L (4-12); Aspartate Amino Transferase 42 U/L (14-36); Bilirubin,Total 0.3 mg/dL (0.2-1.3); Blood Urea Nitrogen 18 mg/dL (7-17); Calcium 8.5 mg/dL (8.4-10.2); Carbon Dioxide 22 mmol/L (22-30); Chloride 108 mmol/L (98-107); Estimated CRCL calculation 24 ml/min; Estimated Glomerular Filt Rate 40; Glucose 72 mg/dL (65-110); Sodium 139 mmol/L (137-145); Total Protein 6.9 g/dL (6.3-8.2)
[2025-02-15] MEDS: LEVOTHYROXINE SODIUM 100 MCG TABLET PO (05:33)
--- NOTE | 2025-02-15 07:30 | PM.IMPN ---
Progress Note: A&P Assessment and Plan (1) Urinary tract infection: Code(s): N39.0 - Urinary tract infection, site not specified Status: Acute (2) Atrial fibrillation with slow ventricular response: Code(s): I48.91 - Unspecified atrial fibrillation Status: Acute (3) Hypothyroidism: Code(s): E03.9 - Hypothyroidism, unspecified Status: Acute (4) Diastolic dysfunction: Code(s): I51.89 - Other ill-defined heart diseases Status: Acute (5) Type 2 diabetes mellitus: Code(s): E11.9 - Type 2 diabetes mellitus without complications Status: Acute (6) Right-sided heart failure: Code(s): I50.810 - Right heart failure, unspecified Status: Acute Plan The patient presented to the emergency department with complaints of weakness, abdominal discomfort, urinary urgency, and mild shortness of breath from baseline in the last few months Chest x-ray was read as having interstitial infiltrates which could be edema or pneumonia. Bradycardia Reports shortness of breath with activity, new in the last 6 months. Cardiology planning an outpatient follow up for a watchman procedure and stress test. --Cardiology consulted, appreciate recommendations --Cardiology planning outpatient stress test, possible watchman --Treatment of hypothyroidism --Stopped metoprolol --Monitoring on tele, intermittent bradycardia but improved Pneumonia Pneumonia seems less likely however will continue with azithromycin for now. She does not appear to be decompensated with regards to her right-sided heart failure or diastolic dysfunction. She is in slow atrial fibrillation with rates as low as the 30s however her blood pressures have remained stable. --Continue azithromycin 500mg x3 --Also on Cetriaxone Hypothyroidism Home med: Levothyroxine 50mg daily TSH is markedly elevated (>100) and T4 also low which may be contributing to bradycardia. She reports difficulty gaining weight. TSH improved on repeat 78 with higher dose of synthroid. She reports taking synthroid regularly --Increased levothyroxine dose to 100 mcg from 50 mcg --Given a dose of glucagon in case she took extra metroprolol, but no change. Patient does not think she took additional metoprolol. continue to hold. --Repeat TSH in 6 weeks -- Consider follow up with endocrinology Abdominal pain 2/2 UTI or consider transient mesenteric ischemia 2/2 bradycardia --Resolved, monitor --Treatment of bradycardia as noted --AG normalized 13>9 Afib Currently off apixaban due to hemorrhoidal bleeding. Hemorrhoids Topical steroids, witch sujatha prn Hypoglycemia Diabetes Home meds: Glimeperide 2mg daily, Metformin 500mg daily, Jardiance 10mg daily Hypoglycemic in the ED, 41-44, now trending up. Was NPO for over 24 hours --Holding glimeperide and metformin --Continue jardiance, SSI --Continue sliding scale insulin, Accu-Cheks, and hypoglycemic protocol. UTI She has evidence of urinary tract infection. GS >100 GNB --Follow final urine culture --Continue Ceftriaxone Code status: Full code. Patient agreeable to CPR and intubation short term for reversible causes. Would not want extraordinary measures and will discuss with son. Time Spent With Patient Time: 56 minutes Subjective Date/time seen: 02/15/25 07:30 Interval history: HR 60-70's but irregular TSH improving. No chest pain or sob at rest. Transient abdominal pain this morning Urine culture growing GNB Patient is a full code Review of Systems Review of Systems: 12 systems were reviewed and are negative except for as per HPI. Exam Narrative: General: Well-developed female lying on her left side in bed no distress. Weight: 57.4 kg. BMI: 23.1. HEENT: PERRL, EOMI. Sclerae anicteric. Moist mucous membranes. Neck: Supple. No jugular venous distention. Respiratory: Respirations are even and nonlabored. Few scattered rales noted. Cardiovascular: Irregularly irregular rate and rhythm. Telemetry shows slow atrial fibrillation with rates in the 50s. 2/6 systolic murmur at the upper sternal border. Gastrointestinal: Abdomen is soft, nontender, and nondistended with positive bowel sounds. No organomegaly. No CVA tenderness. Skin: Warm and dry. No rash or lesions on limited exam. Extremities: No cyanosis, clubbing, or edema. Radial and pedal pulses intact. Neurological: Alert. Cranial nerves 2-12 grossly intact. Left upper extremity contracted from prior stroke. Psychiatric: Pleasant and cooperative with normal mood and affect. Objective Data Vital Signs Vital Signs: Vital Signs - 24 hr 02/14/25 08:00 02/14/25 08:00 02/14/25 08:00 Temperature 97.5 F L Pulse Rate 61 63 Respiratory Rate 16 Blood Pressure 169/65 H Pulse Oximetry 97 98 Oxygen Delivery Room Air 02/14/25 08:00 02/14/25 10:00 02/14/25 12:00 Temperature 98.4 F 98.1 F Pulse Rate 42 L 41 L 41 L Respiratory Rate 20 20 Blood Pressure 99/50 L 145/55 H Pulse Oximetry 96 98 Oxygen Delivery 02/14/25 12:00 02/14/25 12:00 02/14/25 14:00 Temperature Pulse Rate 46 L 42 L Respiratory Rate Blood Pressure Pulse Oximetry 96 Oxygen Delivery Room Air 02/14/25 14:49 02/14/25 14:50 02/14/25 16:00 Temperature 98.1 F Pulse Rate 423 H Respiratory Rate 16 Blood Pressure 124/84 117/44 L 113/78 Pulse Oximetry 97 Oxygen Delivery 02/14/25 16:00 02/14/25 16:00 02/14/25 18:00 Temperature Pulse Rate 47 L 68 Respiratory Rate Blood Pressure Pulse Oximetry 97 Oxygen Delivery Room Air 02/14/25 20:00 02/14/25 20:00 02/14/25 20:00 Temperature 98.2 F Pulse Rate 60 58 L 60 Respiratory Rate 18 18 Blood Pressure 110/78 Pulse Oximetry 97 97 Oxygen Delivery Room Air 02/14/25 22:00 02/14/25 23:54 02/15/25 00:00 Temperature 98.4 F Pulse Rate 57 L 67 67 Respiratory Rate 18 18 Blood Pressure 116/74 Pulse Oximetry 97 97 Oxygen Delivery Room Air 02/15/25 00:00 02/15/25 02:00 02/15/25 04:00 Temperature 98.4 F Pulse Rate 53 L 67 69 Respiratory Rate 18 Blood Pressure 128/73 Pulse Oximetry 93 Oxygen Delivery 02/15/25 04:00 02/15/25 04:00 02/15/25 05:24 Temperature Pulse Rate 69 72 66 Respiratory Rate 18 Blood Pressure Pulse Oximetry 93 Oxygen Delivery Room Air Intake/Output Intake/Output: Intake & Output 02/12/25 02/13/25 02/14/25 02/15/25 23:59 23:59 23:59 23:59 Intake Total 300 2310 300 Output Total 100 1050 600 Balance 200 1260 -300 Meds/Results Medications: Active Medications Generic Name Dose Route Start Last Admin Trade Name Freq PRN Reason Stop Dose Admin Acetaminophen 650 mg 02/13/25 22:31 Acetaminophen 325 Mg Tablet PO Q6H PRN Mild Pain (1-3) or Fever Albuterol 2 puff 02/13/25 20:58 Albuterol Sulfate (*Sp) Aerosol 1 Puff INHALATION Q4HRT PRN Shortness Of Breath Amlodipine Besylate 5 mg 02/14/25 09:00 02/14/25 09:41 Amlodipine Besylate 5 Mg Tablet PO 5 mg QAM ORLY Administration Atorvastatin Calcium 80 mg 02/14/25 09:00 02/14/25 09:41 Atorvastatin 40 Mg Tablet PO 80 mg DAILY ORLY Administration Dextrose 12.5 gm 02/13/25 22:31 02/14/25 05:15 Dextrose 50% 25 Gm/50 Ml Syringe IV PUSH 12.5 gm PRN PRN Administration Hypoglycemia Protocol Docusate Sodium 100 mg 02/14/25 09:00 02/14/25 17:37 Docusate Sodium 100 Mg Capsule PO 100 mg BID ORLY Administration Empagliflozin 10 mg 02/14/25 09:00 Empagliflozin 10 Mg Tablet PO DAILY ORLY Famotidine 20 mg 02/14/25 09:00 02/14/25 09:41 Famotidine 20 Mg Tablet PO 20 mg DAILY ORLY Administration Fluoxetine HCl 20 mg 02/14/25 09:00 02/14/25 09:41 Fluoxetine Hcl 20 Mg Capsule PO 20 mg DAILY ORLY Administration Glucagon 1 mg 02/13/25 22:31 Glucagon For Inj 1 Mg Vial IM PRN PRN Hypoglycemia Protocol Glucose 15 gm 02/13/25 22:31 Glucose Oral Gel 15 Gm Of Glucse In 37.5 Gm Tube PO PRN PRN Hypoglycemia Protocol Hydralazine HCl 10 mg 02/14/25 09:00 02/14/25 17:37 Hydralazine 10 Mg Tablet PO 10 mg BID ORLY Administration Hydrocortisone/Pramoxine 1 applic 02/14/25 14:00 02/14/25 20:08 Hydrocortisone/Pramox 1% Foam 10 Gm Can RECTAL 1 applic Q12HR ORLY Administration Ceftriaxone Sodium 1 gm in 50 mls @ 100 mls/hr 02/14/25 18:00 02/14/25 18:08 Rocephin 1 Gm/Ns 50 Ml IVPB Infused Q24H ORLY Infusion Azithromycin 500 mg in 250 mls @ 250 mls/hr 02/14/25 20:00 02/14/25 21:05 Zithromax IVPB Infused Q24H ORLY Infusion Dextrose 1,000 mls @ 100 mls/hr 02/13/25 22:31 Dextrose 5% 1,000 Ml IVPB PRN PRN Hypoglycemia Protocol Insulin Aspart 1 - 2 units 02/14/25 21:00 02/14/25 20:17 Insulin Aspart (*Bkc) 100 Units/Ml SUB-Q 1 units HS ORYL Administration Protocol Insulin Aspart 2 - 5 units 02/14/25 08:00 02/14/25 17:38 Insulin Aspart (*Bkc) 100 Units/Ml SUB-Q Not Given [facility] Protocol Levothyroxine Sodium 100 mcg 02/14/25 06:30 02/15/25 05:33 Levothyroxine Sodium 100 Mcg Tablet PO 100 mcg DAILY@0630 ORLY Administration Magnesium Citrate 300 ml 02/13/25 20:58 Magnesium Citrate 300 Ml Btl PO ONCE PRN constipation Spironolactone 25 mg 02/14/25 09:00 02/14/25 09:41 Spironolactone 25 Mg Tablet PO 25 mg DAILY ORLY Administration Witch Sujatha 1 pad 02/14/25 10:31 Witch Sujatha 40 Pads TOPICAL PRN PRN Perineal Discomfort Radiology Results: ITS Impressions Chest X-Ray 02/13/25 17:02 IMPRESSION: Cardiomegaly with cardiac decompensation and possible pulmonary edema. Pneumonitis is not excluded. Left basilar atelectasis versus pneumonia. Abdomen/Pelvis CT 02/13/25 19:18 IMPRESSION: 1. No evidence of appendicitis, diverticulitis or intestinal obstruction. 2. Cholelithiasis. 3. Fat infiltration of the liver. 4. Cardiomegaly. 5. Nodule in the left lung base unchanged from previous examination. Labs Labs: Laboratory Results - last 24 hr 02/14/25 02/14/25 02/14/25 07:23 11:09 11:32 WBC RBC Hgb Hct MCV MCH MCHC RDW Plt Count MPV Immature Gran % (Auto) Neut % (Auto) Lymph % (Auto) [place] % (Auto) Eos % (Auto) Baso % (Auto) Lymph # (Auto) [place] # (Auto) Eos # (Auto) Baso # (Auto) Abs Immat Gran (auto) Absolute Neuts (auto) Absolute Nucleated RBC Nucleated RBC % Sodium 137 Potassium 5.6 H Chloride 104 Carbon Dioxide 22 Anion Gap 11 BUN 22 H Creatinine 1.32 H Estim Creat Clear Calc 22 Estimated GFR 38 L Glucose 183 H POC Capillary Glucose 213 H 154 H Lactic Acid 2.0 Calcium 9.5 Total Bilirubin AST ALT Alkaline Phosphatase Total Protein Albumin TSH (Reflex) 78.000 H Free T4 0.91 Total T3 0.68 L Random Cortisol 02/14/25 02/14/25 02/14/25 16:23 19:45 19:57 WBC RBC Hgb Hct MCV MCH MCHC RDW Plt Count MPV Immature Gran % (Auto) Neut % (Auto) Lymph % (Auto) [place] % (Auto) Eos % (Auto) Baso % (Auto) Lymph # (Auto) [place] # (Auto) Eos # (Auto) Baso # (Auto) Abs Immat Gran (auto) Absolute Neuts (auto) Absolute Nucleated RBC Nucleated RBC % Sodium 137 Potassium 4.6 Chloride 105 Carbon Dioxide 21 L Anion Gap 11 BUN 22 H Creatinine 1.48 H Estim Creat Clear Calc 20 Estimated GFR 34 L Glucose 180 H POC Capillary Glucose 158 H 207 H Lactic Acid Calcium 8.8 Total Bilirubin AST ALT Alkaline Phosphatase Total Protein Albumin TSH (Reflex) Free T4 Total T3 Random Cortisol 02/15/25 04:22 WBC 7.7 RBC 3.94 L Hgb 10.7 L Hct 35.3 L MCV 89.6 MCH 27.2 MCHC 30.3 L RDW 13.2 Plt Count 151 MPV 10.0 Immature Gran % (Auto) 0.8 H Neut % (Auto) 70.3 Lymph % (Auto) 11.4 L [place] % (Auto) 15.6 H Eos % (Auto) 1.6 Baso % (Auto) 0.3 Lymph # (Auto) 0.88 L [place] # (Auto) 1.2 H Eos # (Auto) 0.1 Baso # (Auto) 0.0 Abs Immat Gran (auto) 0.06 H Absolute Neuts (auto) 5.5 Absolute Nucleated RBC 0.000 Nucleated RBC % 0.0 Sodium 139 Potassium 4.0 Chloride 108 H Carbon Dioxide 22 Anion Gap 9 BUN 18 H Creatinine 1.26 H Estim Creat Clear Calc 24 Estimated GFR 40 L Glucose 72 POC Capillary Glucose Lactic Acid Calcium 8.5 Total Bilirubin 0.3 AST 42 H ALT 41 H Alkaline Phosphatase 100 Total Protein 6.9 Albumin 3.9 TSH (Reflex) Free T4 Total T3 Random Cortisol 14.10 Quality VTE Prophylaxis VTE prophylaxis: mechanical ordered Hospitalist MIPS Advance Care Plan I have confirmed that the patient's Advanced Care Plan is present, code status is documented, or surrogate decision maker is listed in patient medical record.: Yes Medication Reconciliation I have utilized all available resources to obtain, update and review the patients current medications (includes all prescriptions, OTC, herbals, cannabis, and nutritional supplements).: Yes
[2025-02-15 08:02] LABS: Lactic Acid Reflex 1.4 mmol/L (0.7-2.0)
[2025-02-15 08:28] LABS: Glucose Point of Care 84 mg/dl (65-105)
[2025-02-15] MEDS: SPIRONOLACTONE 25 MG TABLET PO (09:00)
[2025-02-15] MEDS: FAMOTIDINE 20 MG TABLET PO (09:00)
[2025-02-15] MEDS: hydrALAZINE 10 MG TABLET PO ×2 (09:00→16:43)
[2025-02-15] MEDS: HYDROCORTISONE/PRAMOX 1% FOAM 10 GM CAN 1 APPLIC RECTAL ×2 (09:01→20:47)
[2025-02-15] MEDS: EMPAGLIFLOZIN 10 MG TABLET PO (09:01)
[2025-02-15] MEDS: amLODIPine BESYLATE 5 MG TABLET PO (09:01)
[2025-02-15] MEDS: DOCUSATE SODIUM 100 MG CAPSULE PO ×2 (09:01→16:43)
[2025-02-15] MEDS: ATORVASTATIN 40 MG TABLET 80 MG PO (09:01)
[2025-02-15] MEDS: FLUoxetine HCL 20 MG CAPSULE PO (09:01)
[2025-02-15 12:06] LABS: Glucose Point of Care 149 mg/dl (65-105)
[2025-02-15 16:01] LABS: Glucose Point of Care 111 mg/dl (65-105)
[2025-02-15] MEDS: AZITHROMYCIN 500 MG/NS 250 ML 500 MG/250 ML BAG 250 MG IVPB (20:47)
[2025-02-15 21:02] LABS: Glucose Point of Care 180 mg/dl (65-105)
[2025-02-16] VITALS (12 sets, daily range): BP systolic 121–148; BP diastolic 61–79; PULSE 63–96; RESP 16–20; TEMP 36.4–37.1; O2SAT 93–100
[2025-02-16] MEDS: LEVOTHYROXINE SODIUM 100 MCG TABLET PO (06:23)
[2025-02-16 07:39] LABS: Glucose Point of Care 100 mg/dl (65-105)
[2025-02-16] MEDS: hydrALAZINE 10 MG TABLET PO ×2 (09:20→16:24)
[2025-02-16] MEDS: FAMOTIDINE 20 MG TABLET PO (09:20)
[2025-02-16] MEDS: ATORVASTATIN 40 MG TABLET 80 MG PO (09:20)
[2025-02-16] MEDS: SPIRONOLACTONE 25 MG TABLET PO (09:20)
[2025-02-16] MEDS: DOCUSATE SODIUM 100 MG CAPSULE PO ×2 (09:20→16:24)
[2025-02-16] MEDS: amLODIPine BESYLATE 5 MG TABLET PO (09:20)
[2025-02-16] MEDS: EMPAGLIFLOZIN 10 MG TABLET PO (09:20)
[2025-02-16] MEDS: FLUoxetine HCL 20 MG CAPSULE PO (09:20)
[2025-02-16] MEDS: ENOXAPARIN 30 MG/0.3 ML SYRINGE SUB-Q (09:21)
[2025-02-16 11:51] LABS: Glucose Point of Care 140 mg/dl (65-105)
[2025-02-16 15:54] LABS: Glucose Point of Care 199 mg/dl (65-105)
[2025-02-16] MEDS: levoFLOXacin 750 MG TABLET PO (16:24)
--- NOTE | 2025-02-16 16:44 | P.DS_ITS ---
DS: Admitting Diagnosis Discharge Date 02/16/25 Admitting Diagnosis Weakness DS: Discharge Diagnosis Discharge Diagnosis (1) Bradycardia: Code(s): R00.1 - Bradycardia, unspecified Status: Acute (2) Pneumonia: Code(s): J18.9 - Pneumonia, unspecified organism Status: Acute DS: Summary Hospital Course Hospital Course: This is a pleasant 84-year-old female with history of stroke, hypertension, hyperlipidemia, paroxysmal atrial fibrillation, pulmonary hypertension, chronic kidney disease, type 2 diabetes mellitus, and hypothyroidism following thyroidectomy for thyroid cancer who presented to the emergency department via EMS from [facility] for evaluation of weakness. She has not been feeling well for about 3 days with symptoms to include generalized weakness, urinary urgency, and lower abdominal discomfort. She also has a mild increase in shortness of breath from baseline. She denies sick contacts, syncope, near syncope, fever, sinus congestion, sore throat, cough, chest pain, pleuritic pain, orthopnea, paroxysmal nocturnal dyspnea, lower extremity edema, calf pain, vomiting, diarrhea, and dysuria. In the ED: Vital signs on arrival include a temperature 90.2?, blood pressure 134/62, pulse 43, SpO2 100% on room air. Labs were significant for a BUN of 25, creatinine 1.51, glucose 116, TSH greater than 100, free T4 0.69. Urinalysis was positive for 3+ protein, 3+ glucose, trace ketones, nitrates, 1+ leukocyte esterase, greater than 100 WBC, and 4+ bacteria. CT of the abdomen and pelvis showed no acute findings. Chest x-ray showed cardiomegaly with possible pulmonary edema and left basilar atelectasis versus pneumonia. She was given glucagon 1 mg IM for bradycardia (heart rate apparently got down into the low 80s though she has been asymptomatic and hemodynamically stable), azithromycin, and ceftriaxone. She is being admitted in setting for further treatment and close monitoring. Cardiology was consulted, metoprolol was discontinued. Also TSH was >100, with low T4. Levothyroxine was increased from 50mcg to 100mcg. CXR showed left basilar pneumonia, Patient completed 3 days of Rocephin and Azithromycin, dicharged on 5 more days of levofloxacin. Also managed for UTi with urine culture positive for Citrobacter freundii sensitive to Levofloxacin. discharged on Levofloxacin as above. F/u with PCP in 3-5 days, f/u with cardiology as instructed Time Spent with Patient Time attestation: Total time spent providing and/or coordinating discharge services: DS: Data Data Completed and Pending Labs on day of discharge: Labs from last 24 hours 02/16/25 02/16/25 02/16/25 15:52 11:30 07:36 POC Capillary Glucose 199 H 140 H 100 02/15/25 20:48 POC Capillary Glucose 180 H Preliminary micro results at discharge 02/13/25 17:42 Blood Culture - Preliminary Blood 02/13/25 17:41 Blood Culture - Preliminary Blood Discharge Plan Discharge Attending physician on discharge: Sara Monk Consulting providers: Kodi Gan Discharging Clinician: Sara Monk Anticipated Discharge Date/Time: 02/16/25 16:25 Patient Disposition: NH Skilled Nursing/Asst Living Activity: as tolerated Diet: as tolerated Discharge Instructions: Per Care Coordination, patient to return to [facility] living at discharge ([phone]). Please fax discharge instructions and medication riley cody to [phone]. Patient Instructions: Antibiotic Form, Heart Failure (DC), A-fib (Atrial Fibrillation) (DC), Urinary Tract Infection in Older Adults (DC) Patient Language: Azerbaijani Stand Alone Forms: General Discharge Information Follow-up/Referrals: Kodi Gan, [Physician] - (F/u with cardiology as instructed ) PHYSICIAN NOT ON STAFF,NONSTAFF [Primary Care Provider] - (F/u with PCP in 3-5 days ) Discharge Medications: New levothyroxine [Synthroid] 100 mcg Tablet 100 mcg PO DAILY@0630 30 Days Qty: 30 2RF levofloxacin 750 mg tablet 750 mg PO .q48 1 Days Qty: 1 0RF hydralazine 10 mg Tablet 10 mg PO BID 30 Days Qty: 60 2RF Continued famotidine 20 mg tablet 20 mg PO DAILY docusate sodium 100 mg capsule 100 mg PO BID Qty: 60 2RF magnesium citrate [OneLAX Magnesium Citrate] Solution 300 ml PO ONCE PRN (Reason: constipation) Qty: 296 0RF Rx Instructions: as a single dose as needed for 3-4 with BM. aspirin 325 mg tablet 325 mg PO DAILY atorvastatin 80 mg tablet 80 mg PO DAILY amlodipine [Norvasc] 5 mg Tablet 5 mg PO QAM 30 Days Qty: 30 0RF Jardiance 10 mg Tablet 10 mg PO DAILY 30 Days Qty: 30 0RF glimepiride 2 mg tablet 2 mg PO DAILY albuterol sulfate 90 mcg/actuation HFA aerosol inhaler 2 puff INHALATION Q4H PRN (Reason: Shortness Of Breath) fluoxetine 20 mg capsule 20 mg PO DAILY metformin 500 mg tablet extended release 24 hr 500 mg PO DAILY spironolactone 25 mg tablet 25 mg PO DAILY Discontinued metoprolol succinate 50 mg tablet extended release 24 hr 50 mg PO DAILY Eliquis 2.5 mg tablet 2.5 mg PO BID levothyroxine 50 mcg tablet 50 mcg PO DAILY Date of admission: 02/15/25 16:05 Primary Care Provider: PHYSICIAN NOT ON STAFF,NONSTAFF Admitting Provider: Rao Pak Attending physician on admission: Fany Lundberg Condition: Serious
--- NOTE | 2025-02-17 08:02 | P.CDI_ITS ---
CDI Query Clarification Request Please clarify if pneumonia has been ruled in or ruled out. The medical chart reflects the followin-year-old female present to the emergency department for evaluation for increased generalized weakness over the last 3 days. Patient states that she has had no falls or injuries. Patient denies any chest pain but does have some shortness of breath. Patient reports decreased p.o. intake today due to the generalized weakness. Patient does report some lower abdominal discomfort but denies any specific pain with urination. In the ED: Vital signs on arrival include a temperature 90.2?, blood pressure 134/62, pulse 43, SpO2 100% on room air. Labs were significant for a BUN of 25, creatinine 1.51, glucose 116, TSH greater than 100, free T4 0.69. Urinalysis was positive for 3+ protein, 3+ glucose, trace ketones, nitrates, 1+ leukocyte esterase, greater than 100 WBC, and 4+ bacteria. CT of the abdomen and pelvis showed no acute findings. Chest x-ray showed cardiomegaly with possible pulmonary edema and left basilar atelectasis versus pneumonia. She was given gl ucagon 1 mg IM for bradycardia (heart rate apparently got down into the low 80s though she has been asymptomatic and hemodynamically stable), azithromycin, and ceftriaxone. She is being admitted in setting for further treatment and close monitoring. hospitalist documented: Pneumonia Pneumonia seems less likely however will continue with azithromycin for now. She does not appear to be decompensated with regards to her right-sided heart failure or diastolic dysfunction. She is in slow atrial fibrillation with rates as low as the 30s however her blood pressures have remained stable. --Continue azithromycin 500mg x3 --Also on Cetriaxone Chest xray 02/13: FINDINGS: MEDIASTINUM: The cardiac silhouette is moderately enlarged. Congested jhonny. LUNGS: No effusions or pneumothorax. Bilateral interstitial thickening. Minimal opacification the left lung base. OTHER: No free air under the diaphragm. Degenerative changes of the spine. IMPRESSION: Cardiomegaly with cardiac decompensation and possible pulmonary edema. Pneumonitis is not excluded. Left basilar atelectasis versus pneumonia. CTA 02/13: IMPRESSION: 1. No evidence of appendicitis, diverticulitis or intestinal obstruction. 2. Cholelithiasis. 3. Fat infiltration of the liver. 4. Cardiomegaly. 5. Nodule in the left lung base unchanged from previous examination.
== END 2025-02-16 17:44 | DRG 194 ==
LOC: ANHED 17:49 → ANHIMU 18:18
PROVIDERS: Nurse Practitioner Acute Care; Physician Assistant; Admitting Provider Internal Medicine; Emergency Provider Emergency Medicine; Visit Provider Internal Medicine
DX: J18.9 Pneumonia, unspecified organism (principal); I13.0 Hypertensive heart and chronic kidney disease with heart failure and stage 1 through stage 4 chronic kidney disease, or unspecified chronic kidney disease; N39.0 Urinary tract infection, site not specified; I69.354 Hemiplegia and hemiparesis following cerebral infarction affecting left non-dominant side; B96.89 Other specified bacterial agents as the cause of diseases classified elsewhere; E78.5 Hyperlipidemia, unspecified; E11.22 Type 2 diabetes mellitus with diabetic chronic kidney disease; E11.649 Type 2 diabetes mellitus with hypoglycemia without coma; E03.9 Hypothyroidism, unspecified; I48.0 Paroxysmal atrial fibrillation; I50.812 Chronic right heart failure; I27.20 Pulmonary hypertension, unspecified; K64.9 Unspecified hemorrhoids; N18.9 Chronic kidney disease, unspecified; Z90.89 Acquired absence of other organs; Z20.822 Contact with and (suspected) exposure to COVID-19; Z79.82 Long term (current) use of aspirin; Z79.84 Long term (current) use of oral hypoglycemic drugs; Z87.891 Personal history of nicotine dependence; Z79.01 Long term (current) use of anticoagulants; Z90.49 Acquired absence of other specified parts of digestive tract; Z85.850 Personal history of malignant neoplasm of thyroid
CPT/HCPCS: 36415; 71045; 74177; 80048; 80053; 81001; 82533; 82948; 83605; 83735; 84439; 84443; 84480; 85025; 85027; 87040; 87086; 87186; 87637; 93005; 96361; 96365; 96366; 96367; 96372; 96375; 99285; A9270; G0378; J0456; J0696; J1610; J1650; J1815; J7040; Q9967

== ENCOUNTER 2025-03-14 22:49 | Emergency (ER) | payer OTHER, SELFPAY ==
--- NOTE | ~2025-03-14 | XR_ITS ---
Left ankle Technique: AP, oblique, and lateral views were obtained. Clinical History: Pain Findings: No acute fracture or dislocation is seen. Osseous alignment is anatomic. Ankle mortise and other visualized joint spaces are preserved. Soft tissues are otherwise unremarkable. Impression: Unremarkable left ankle. Reviewed, dictated and finalized at location . Impression: Unremarkable left ankle.
[2025-03-14 22:44] VITALS: BP 156/78; PULSE 85; RESP 20; TEMP 36.6; O2SAT 99
--- NOTE | 2025-03-15 00:11 | ED_ITS ---
HPI - Extremity Injury (Lower) General Chief Complaint: Extremity Injury, Lower Stated Complaint: ANKLE PAIN Time Seen by Provider: 03/14/25 23:09 Source: patient and RN notes reviewed Mode of arrival: EMS Limitations: no limitations History of Present Illness HPI Narrative: 84 y/o WF in the ED for c/o left ankle pain s/p standing level fall this am. Pt states she got out of her recliner, morning of March 14, and her leg gave out and she fell. Pt denies pain at that time, got up w/o issue and carried on her day. Pt noted that when she went to bed that evening, she had pain to the left ankle. Pt has taken no OTC pain medications for the pain. Pt denies CP, SOB, leg swelling, DAWSON, or dizziness. Related Data Home Medications ?Medication ?Instructions ?Recorded ?Confirmed ?Last Taken ?Type atorvastatin 80 mg tablet 80 mg PO DAILY 07/03/21 02/13/25 Unknown History albuterol sulfate 90 mcg/actuation 2 puff inhalation Q4H PRN 06/23/24 02/13/25 Unknown History aerosol inhaler Shortness Of Breath fluoxetine 20 mg capsule 20 mg PO DAILY 06/23/24 02/13/25 Unknown History glimepiride 2 mg tablet 2 mg PO DAILY 06/23/24 02/13/25 Unknown History metformin 500 mg tablet,extended 500 mg PO DAILY 06/23/24 02/13/25 Unknown History release 24 hr famotidine 20 mg tablet 20 mg PO DAILY 11/25/24 02/13/25 Unknown History aspirin 325 mg tablet 325 mg PO DAILY 01/20/25 02/13/25 Unknown History spironolactone 25 mg tablet 25 mg PO DAILY 02/13/25 02/13/25 Unknown History Allergies Allergy/AdvReac Type Severity Reaction Status Date / Time No Known Drug Allergies Allergy Unknown Unknown Verified 02/13/25 20:46 Review of Systems Review of Systems: CONSTITUTIONAL: Denies fever, chills, or sweats. EYES: Denies visual changes, redness, or discharge. ENT: Denies rhinorrhea, congestion, sore throat, or otalgia. CARDIOVASCULAR: Denies chest pain, palpitations, or edema. RESPIRATORY: Denies cough or dyspnea. GASTROINTESTINAL: Denies abdominal pain, nausea, vomiting, or diarrhea. GENITOURINARY: Denies dysuria or hematuria. SKIN: Denies rash or itching. MUSCULOSKELETAL: Endorses left ankle pain. Denies back pain, joint pain, or myalgia. NEUROLOGIC: Denies headache, numbness, or weakness. PSYCHIATRIC: Denies anxiety or depression. [facility] Past Medical History Medical History Diastolic dysfunction Type 2 diabetes mellitus Right-sided heart failure Aortic valve stenosis Mild aortic valve stenosis with a valve area of 1.5 cm2 on echocardiogram in March 2022. Pulmonary hypertension Severe pulmonary hypertension with a PASP of 69 mmHg on echocardiogram in March 2022. 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 CODE STATUS: She is okay with CPR and medications but does not wish to be intubated. Modified code, updated. Smoking packs per day: 2 Smoking cigarettes per day: 40.0 Years smoked: 50 Smoking pack-years: 100.00 Smoking status: Former smoker Tobacco type: cigarettes Smoking end date: 06/08/20 Alcohol intake: never Substance use: never Substance use type: does not use Do You Feel Safe in your Home?: Yes Lack of Transportation: No Lack of Food: Never True Current Housing: I Have Housing Concerned About Future Housing: No Difficulty Paying Gas/Electric Bills: No Difficulty Paying for Meds: No Currently Unemployed: No Education: High School Diploma/GED Difficulty w/ Childcare or Family Care: No Additional living arrangements comments: Assisted living at [facility]. Additional occupation/education comments: Retired. Spiritual care concerns: No Exam Narrative: GENERAL: Well-appearing, well-nourished, and in no acute distress. HEAD: Normocephalic, atraumatic. EYES: PERRLA and EOMI. ENT: Nares clear, no rhinorrhea or epistaxis. Mucous membranes moist. NECK: Supple. CHEST: Clear to auscultation. No respiratory distress. HEART: Regular rate and rhythm. No murmur heard. Normal peripheral pulses. ABDOMEN: Soft, nontender, nondistended, normal active bowel sounds. EXTREMITIES: Normal range of motion. No edema. Pain with flexion, extension, inversion and eversion of the left ankle. No swelling of the ankle, foot, or calf/LE. No pain on palpation of the left ankle. SKIN: Warm, dry, no rash. NEURO: No focal deficits. Alert and oriented x3. PSYCH: Normal mood and affect. Course Vital Signs Vital signs: Vital Signs Temperature 36.6 C 03/14/25 22:44 Pulse Rate 85 03/14/25 22:44 Respiratory Rate 20 03/14/25 22:44 Blood Pressure 156/78 H 03/14/25 22:44 Pulse Oximetry 99 03/14/25 22:44 Oxygen Delivery Room Air 03/14/25 22:44 Temperature 36.6 C 03/14/25 22:44 Pulse Rate 85 03/14/25 22:44 Respiratory Rate 20 03/14/25 22:44 Blood Pressure 156/78 H 03/14/25 22:44 Pulse Oximetry 99 03/14/25 22:44 Oxygen Delivery Room Air 03/14/25 22:44 MDM - Extremity Injury (Lower) MDM Narrative Medical decision making narrative: X-rays completed shadow noted on 2nd view of the left ankle on the fibula and does not correlate as patient has no pain on palpation of the fibula. Patient given Tylenol department, pain helped. Pepe wrap to patient's ankle and will be discharged accordingly. Differential Diagnosis Differential diagnosis: Likely ankle sprain and strain and ankle fracture Medical Records Attestation: I reviewed the patient's medical records. Imaging Data Attestation: I personally reviewed and interpreted this imaging study as follows: My impression: Normal left ankle xray. No fracture noted. Shadow noted on left fibula, no pain clinically. Discharge Plan Discharge Clinical Impression: Ankle sprain Qualifiers: Encounter type: initial encounter Involved ligament of ankle: unspecified ligament Laterality: left Qualified Code(s): S93.402A - Sprain of unspecified ligament of left ankle, initial encounter Patient Disposition: Home Condition: Stable Instructions: Antibiotic Form, Ankle Sprain (ED) Additional Instructions: Take Tylenol [id number] for pain. Rest, ice, and elevation of the left ankle. Continue the use of Pepe wrap. Follow up with primary care doc. return to the ED if continued pain or worsening of symptoms. Patient Language: Turkmen Prescriptions: No Action famotidine 20 mg tablet 20 mg PO DAILY docusate sodium 100 mg capsule 100 mg PO BID Qty: 60 2RF magnesium citrate [OneLAX Magnesium Citrate] Solution 300 ml PO ONCE PRN (Reason: constipation) Qty: 296 0RF Rx Instructions: as a single dose as needed for 3-4 with BM. aspirin 325 mg tablet 325 mg PO DAILY atorvastatin 80 mg tablet 80 mg PO DAILY amlodipine [Norvasc] 5 mg Tablet 5 mg PO QAM 30 Days Qty: 30 0RF Jardiance 10 mg Tablet 10 mg PO DAILY 30 Days Qty: 30 0RF glimepiride 2 mg tablet 2 mg PO DAILY albuterol sulfate 90 mcg/actuation HFA aerosol inhaler 2 puff INHALATION Q4H PRN (Reason: Shortness Of Breath) fluoxetine 20 mg capsule 20 mg PO DAILY metformin 500 mg tablet extended release 24 hr 500 mg PO DAILY spironolactone 25 mg tablet 25 mg PO DAILY levothyroxine [Synthroid] 100 mcg Tablet 100 mcg PO DAILY@0630 30 Days Qty: 30 2RF levofloxacin 750 mg tablet 750 mg PO .q48 1 Days Qty: 1 0RF hydralazine 10 mg Tablet 10 mg PO BID 30 Days Qty: 60 2RF Follow-up/Referrals: PHYSICIAN NOT ON STAFF,NONSTAFF [Primary Care Provider] -
--- OUTSIDE RECORDS SUMMARY | 2025-03-15 00:20 | XMS_ITS | Encounter Summary ---
Author Organization [facility] Address [address] [place] [address] Care Team Providers Care Diesel Locomotive Crane Operator Name Role Phone Benny Wilkes MD Primary Care Provider [phone] Encounter Details Date Type Department Care Team (Late st Contact Info) Description 04/27/2021 3:15 PM CDT Hospital Encounter [address] [id number] Lili Bethea MD 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
--- OUTSIDE RECORDS SUMMARY | 2025-03-15 00:20 | XMS_ITS | Clinical Summary ---
Author Organization [facility] Address [address] [facility] [place] [address] Care Team Providers Care Induction Machine Operator Name Role Phone Benny Wilkes MD Primary Care Provider [phone] Source Comments [facility],non-owned Affiliates and Associated Physician Practices is amultiple site organization consisting of ambulatory clinics and hospital sitesin [place], [place], [place] and [place]. This disclosure is being madepursuant to the Care Everywhere program and may not contain all information available regarding this patient. Last updated 18.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 Gender Identity Not on file Sexual Orientation [...] PNEUMOCOCCAL VACCINE 50+ (2 of 2 - PPSV23, PCV20, or PCV21) 07/07/2008 05/12/2008 Respiratory Syncytial Virus (RSV) Vaccine Pt: or over 60 yrs (1 - 1-dose 75+ series) 11/08/2015 DIABETES RETINOPATHY SCREENING 03/17/2021 DIABETES-FOOT EXAM WITH MONOFILAMENT 03/17/2021 DIABETES-HGB A1C 10/25/2021 04/24/2021, 04/2021, 10/06/2014, Additional history exists DIABETES-SERUM CREATININE 05/17/20222020, 05/16/2021, 05/16/2021, Additional history exists COVID-19 VACCINE ( season) 2024 DEPRESSION SCREENING 09/03/2024 DIABETES - URINE PROTEIN SCREENING 09/03/2024 INFLUENZA VACCINE (#1) 2025 06/12/2014 BONE DENSITY TESTING Completed 06/30/2011 [...] RENAL FUNCTION PANEL (05/17/2021 3:33 AM CDT) [facility] Glucose 104 70 - 105 mg/dL 05/17/2021 4:11 AM CDT [facility] Sodium 141 136 - 145 mmol/L 05/17/2021 4:11 AM CDT [facility] Potassium 3.5 3.5 - 5.1 mmol/L 05/17/2021 4:11 AM CDT [facility] Chloride 108(H) 98 - 107 mmol/L 05/17/2021 4:11 AM CDT [facility] CO2 22(L) 23 - 31 mmol/L 05/17/2021 4:11 AM CDT [facility] Calcium 8.4 8.4 - 10.4 mg/dL 05/17/2021 4:11 AM CDT [facility] Anion Gap 11 8 - 18 mmol/L 05/17/2021 4:11 AM CDT [facility] BUN 16 9.8 - 20.1 mg/dL 05/17/2021 4:11 AM CDT [facility] Creatinine 1.10 0.57 - 1.11 mg/dL 05/17/2021 4:11 AM CDT [facility] Albumin 3.5 3.2 - 4.6 gm/dL 05/17/2021 4:11 AM CDT [facility] Phosphorus 2.2(L) 2.3 - 4.7 mg/dL 05/17/2021 4:11 AM CDT [facility] eGFR by MDRD 48 mL/min/1.7 3m2 05/17/2021 4:11 AM CDT [facility] eGFR by MDRD 58 mL/min/1.7 3m2 05/17/2021 4:11 AM CDT [facility] Blood BLOOD SPECIMEN / Unknown Venipuncture / Unknown 05/17/2021 3:33 AM CDT 05/17/2021 3:45 AM CDT us Calixto Glass MD LAB - CHEMISTRY ORDERABLES Britany l Result [facility] [address] [place] [address] * (ABNORMAL) HEMOGLOBIN A1C (04/24/2021 3:41 AM CDT) Hemoglobin A1c 7.4(H) 4.2 - 5.6 % 04/24/2021 4:29 AM CDT [facility] Estimated Average Glucose 166 mg/dL 04/24/2021 4:29 AM CDT [facility] Blood BLOOD SPECIMEN / Unknown Venipuncture / Unknown 04/24/2021 3:41 AM CDT 04/24/2021 3:56 AM CDT Narrative [facility] - 04/24/2021 4:29 AM CDT The following cutoff levels are recommended by [place] Diabetes [employer]. A1c > 6.5% : [...] hemoglobin (HbF) exceeds 5% in the specimen. us Vickie Pike MD LAB - CHEMISTRY ORDERABLES F inal Result [facility] [address] [place] [address] * DEXA BONE DENSITY 2 [...] Most Recently Relevant to Health Maintenance Insurance [facility] MEDICARE SELF PAY NO INSURANCE Member Subscriber Plan / Payer (Ef fective for All Dates) Name:Moriah Reed Member ID:Not on file Relation to Subscriber:Not on file Name:MORIAH REED Subscriber ID:Not on file (Home) Address: [facility] [address] [place] [id number] Payer ID:Not on file Group ID:Not on file Type:Self Pay Address: [place], [place] Advance Directives Documents on File Type Date Recorded Patient Sandblaster Supervisor Expl anation Adv Directive/Living Will/POA 04/29/2021 [...] 5:11 PM 03/11/2021 2:27 PM Care Teams Induction Machine Operator Relationship Specialty Start Date End Date Benny Wilkes MD [address] [place] [address] PCP - General Internal Medicine 03/09/21
[2025-03-15] MEDS: ACETAMINOPHEN 325 MG TABLET 650 MG PO (01:19)
[2025-03-15 01:58] VITALS: BP 150/84; PULSE 87; RESP 16; O2SAT 99
== END 2025-03-15 02:01 ==
PROVIDERS: Emergency Provider Registered Nurse Emergency
DX: S93.402A Sprain of unspecified ligament of left ankle, initial encounter (principal); I11.0 Hypertensive heart disease with heart failure; I50.810 Right heart failure, unspecified; I35.0 Nonrheumatic aortic (valve) stenosis; I27.20 Pulmonary hypertension, unspecified; I48.0 Paroxysmal atrial fibrillation; I69.954 Hemiplegia and hemiparesis following unspecified cerebrovascular disease affecting left non-dominant side; E11.9 Type 2 diabetes mellitus without complications; E78.5 Hyperlipidemia, unspecified; E89.0 Postprocedural hypothyroidism; Z87.891 Personal history of nicotine dependence; Z90.711 Acquired absence of uterus with remaining cervical stump; Z79.82 Long term (current) use of aspirin; Z79.84 Long term (current) use of oral hypoglycemic drugs; Z79.899 Other long term (current) drug therapy; W18.39XA Other fall on same level, initial encounter
CPT/HCPCS: 73610; 99283; A9270

== ENCOUNTER 2025-03-30 08:07 | Outpatient (CLI) | payer OTHER, MEDICAID, SELFPAY ==
--- NOTE | ~2025-03-30 | NM_ITS ---
EXAMINATION: NM danny stress w perfusion DATE: 03/30/2025 12:17 INDICATION: Preoperative cardiovascular examination TECHNIQUE: Rest images were obtained following intravenous administration of 10 mCi Tc99m tetrofosmin (Myoview). The patient was infused intravenously with Lexiscan (Regadenoson). Then, 30 mCi Tc99m tet rofosmin (Myoview) was administered intravenously, and stress images were obtained. Data was reconstr ucted into short axis and horizontal and vertical long axis SPECT images. Gated SPECT images were als o obtained. COMPARISON: None. FINDINGS: There is a small fixed mild perfusion defect at the junction of the mid anterolateral and m id inferolateral segments consistent with infarct. No reversible ischemia. There is normal left vent ricular chamber size, wall motion and ejection fraction. Left ventricular ejection fraction measures >70%. IMPRESSION: 1. Small mild nonreversible infarct at the junction of the mid anterolateral and mid inferolateral se gments. No reversible ischemia. 2. Left ventricular ejection fraction measuring >70%. Reviewed, dictated and finalized at location A. IMPRESSION: 1. Small mild nonreversible infarct at the junction of the mid anterolateral an d mid inferolateral segments. No reversible ischemia. 2. Left ventricular ejection fraction measuring >70%.
--- OUTSIDE RECORDS SUMMARY | 2025-03-30 08:15 | XMS_ITS | Clinical Summary ---
Author Organization [facility] Address [address] [facility] [place] [address] Care Team Providers Care Infection Control Coordinator Name Role Phone Benny Wilkes MD Primary Care Provider [phone] Source Comments [facility],non-owned Affiliates and Associated Physician Practices is amultiple site organization consisting of ambulatory clinics and hospital sitesin [place], [place], [place] and [place]. This disclosure is being madepursuant to the Care Everywhere program and may not contain all information available regarding this patient. 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 Gender Identity Not on file Sexual Orientation [...] RENAL FUNCTION PANEL (05/17/2021 3:33 AM CDT) [facility] Glucose 104 70 - 105 mg/dL 05/17/2021 4:11 AM CDT [facility] Sodium 141 136 - 145 mmol/L 05/17/2021 4:11 AM CDT [facility] Potassium 3.5 3.5 - 5.1 mmol/L 05/17/2021 4:11 AM CDT [facility] Chloride 108(H) 98 - 107 mmol/L 05/17/2021 4:11 AM CDT [facility] CO2 22(L) 23 - 31 mmol/L 05/17/2021 4:11 AM CDT [facility] Calcium 8.4 8.4 - 10.4 mg/dL 05/17/2021 4:11 AM CDT [facility] Anion Gap 11 8 - 18 mmol/L 05/17/2021 4:11 AM CDT [facility] BUN 16 9.8 - 20.1 mg/dL 05/17/2021 4:11 AM CDT [facility] Creatinine 1.10 0.57 - 1.11 mg/dL 05/17/2021 4:11 AM CDT [facility] Albumin 3.5 3.2 - 4.6 gm/dL 05/17/2021 4:11 AM CDT [facility] Phosphorus 2.2(L) 2.3 - 4.7 mg/dL 05/17/2021 4:11 AM CDT [facility] eGFR by MDRD 48 mL/min/1.7 3m2 05/17/2021 4:11 AM CDT [facility] eGFR by MDRD 58 mL/min/1.7 3m2 05/17/2021 4:11 AM CDT [facility] Blood BLOOD SPECIMEN / Unknown Venipuncture / Unknown 05/17/2021 3:33 AM CDT 05/17/2021 3:45 AM CDT us Calixto Glass MD LAB - CHEMISTRY ORDERABLES Britany l Result [facility] [address] [place] [address] * (ABNORMAL) HEMOGLOBIN A1C (04/24/2021 3:41 AM CDT) Hemoglobin A1c 7.4(H) 4.2 - 5.6 % 04/24/2021 4:29 AM CDT [facility] Estimated Average Glucose 166 mg/dL 04/24/2021 4:29 AM CDT [facility] Blood BLOOD SPECIMEN / Unknown Venipuncture / Unknown 04/24/2021 3:41 AM CDT 04/24/2021 3:56 AM CDT Narrative [facility] - 04/24/2021 4:29 AM CDT The following cutoff levels are recommended by [place] [employer]. A1c > 6.5% : considered [...] LAB - CHEMISTRY ORDERABLES F inal Result [facility] [address] [place] [address] * DEXA BONE DENSITY 2 [...] Most Recently Relevant to Health Maintenance Insurance [facility] MEDICARE SELF PAY NO INSURANCE Member Subscriber Plan / Payer (Ef fective for All Dates) Name:Moriah Reed Member ID:Not on file Relation to Subscriber:Not on file Name:MORIAH REED Subscriber ID:Not on file (Home) Address: [facility] [address] [place] [phone] Payer ID:Not on file Group ID:Not on file Type:Self Pay Address: [place], [place] Advance Directives Documents on File Type Date Recorded Patient Commodity Specialist Expl anation Adv Directive/Living Will/POA 04/29/2021 9:18 [...] 5:11 PM 03/11/2021 2:27 PM Care Teams Infection Control Coordinator Relationship Specialty Start Date End Date Benny Wilkes MD [address] [place] [address] PCP - General Internal Medicine 03/09/21
--- OUTSIDE RECORDS SUMMARY | 2025-03-30 08:15 | XMS_ITS | Encounter Summary ---
Author Organization [facility] Address [address] [facility] [place] [address] Care Team Providers Care Mathematics Education Professor Name Role Phone Benny Wilkes MD Primary Care Provider [phone] Encounter Details Date Type Department Care Team (Late st Contact Info) Description 04/27/2021 3:15 PM CDT Hospital Encounter [address] [phone] Lili Bethea MD [facility] [place] [phone] Aguilar Latham MD [facility] [address] [place] [phone] Eugene De Jesus MD [employer] [...] on file 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
--- NOTE | 2025-03-30 08:26 | EST_ITS ---
Patient Info Name: Moriah Grace Age: 84 years : 1940 Gender: Female Ht: 62 in Wt: 128 lbs BSA: 1.60 m2 HR: 93 bpm BP: 144 / 67 mmHg Exam Date: 03/30/2025 8:26 AM Patient Status: O Admit Date: 03/30/2025 Exam Type: CA stress danny w NM A regadenoson stress test was performed. Staff Referring Physician: Kodi Gan DO Attending Provider: Kodi Gan DO Exercise Technologist: Tabby Hunt Exercise Physician: Kodi Gan DO Summary 1. 1. Negative lexiscan stress test for ischemic ST changes by ECG criteria. 2. 2. Stable hemodynamics throughout the test. 3. 3. Nuclear scan to follow and will be reported separately. Please correlate with it. 4. 4. Patient informed of the above results. Protocol: Lexiscan Stress ECG Details Stage: REST Duration (min): 2 min : 28 sec HR (bpm): 99 SBP (mmHg): 144 DBP (mmHg): 67 Stage: REST Duration (min): 9 min : 52 sec HR (bpm): 93 SBP (mmHg): 144 DBP (mmHg): 67 Stage: STAGE 1 Duration (min): 1 min : 0 sec HR (bpm): 107 SBP (mmHg): 144 DBP (mmHg): 67 Stage: RECOVERY Duration (min): 1 min : 0 sec HR (bpm): 125 SBP (mmHg): 144 DBP (mmHg): 67 Stage: RECOVERY Duration (min): 2 min : 0 sec HR (bpm): 106 SBP (mmHg): 136 DBP (mmHg): 76 Stage: RECOVERY Duration (min): 3 min : 0 sec HR (bpm): 106 SBP (mmHg): 132 DBP (mmHg): 73 Stage: RECOVERY Duration (min): 4 min : 0 sec HR (bpm): 107 SBP (mmHg): 132 DBP (mmHg): 73 Stage: RECOVERY Duration (min): 5 min : 0 sec HR (bpm): 101 SBP (mmHg): 137 DBP (mmHg): 68 Stage: RECOVERY Duration (min): 5 min : 17 sec HR (bpm): 100 SBP (mmHg): 137 DBP (mmHg): 68 Rest HR: 93 bpm Peak HR: 131 bpm Rest Sys BP: 144 mmHg Peak Sys BP: 137 mmHg Max Pred HR: 136 bpm % Max Pred HR: 96 % Target HR: 116 bpm Max RPP: 17,947 bpm*mmHg Termination Reason: Completed protocol Cardiac Symptoms: Shortness of breath Total Time: 1 min : 0 sec Rest Suarez BP: 67 mmHg Peak Suarez BP: 68 mmHg Total Dose: 0.4 mg Resting ECG Atrial fibrillation, borderline ST-T wave abormality. Stress ECG No ST changes. Arrhythmias No other arrhythmias. Report Signatures
== END 2025-03-30 08:08 | disposition home or self-care (01) ==
PROVIDERS: Visit Provider Internal Medicine Cardiovascular Disease
DX: Z01.810 Encounter for preprocedural cardiovascular examination (principal); I21.29 ST elevation (STEMI) myocardial infarction involving other sites; I51.9 Heart disease, unspecified
CPT/HCPCS: 78452; 93017; A9502; J2785

== ENCOUNTER 2025-04-09 20:28 | Emergency (ER) | payer OTHER, SELFPAY ==
--- NOTE | ~2025-04-09 | XR_ITS ---
HISTORY: pain . Remote history of a fall 2 weeks earlier, now unable to bear weight. COMPARISON: No prior imaging of the right ankle has been performed at this institution for direct co mparison. 2 weeks earlier, the patient had a radiographic evaluation of the left ankle (on 03/14/2025) which was without acute fracture or dislocation. TECHNIQUE: 3 views of the right ankle were performed FINDINGS: No acute fracture or dislocation. Irregularity of the contour of the talar dome, with loss of the convexity of the talar dome. Sclerosis of the talar dome is also noted for which subacute fracture is suspected. Boehler's angle is within normal limits measuring 31 degrees (normal being 20-40). Tibiotalar joint effusion is identified. IMPRESSION: Irregularity of the contour of the talar dome with loss of the convexity with associated sclerosis suggesting possible subacute fracture of the talar dome. Follow-up with MRI is recommended to evaluate for bony edema and possible fracture deformity in this area, and not likely visualized on CT examination. Reviewed, dictated and finalized at location A. IMPRESSION: Irregularity of the contour of the talar dome with loss of the con vexity with associated sclerosis suggesting possible subacute fracture of the t alar dome. Follow-up with MRI is recommended to evaluate for bony edema and possible fract ure deformity in this area, and not likely visualized on CT examination.
--- OUTSIDE RECORDS SUMMARY | 2025-04-09 20:32 | XMS_ITS | Clinical Summary ---
Author Organization [facility] [employer] [facility] Address [address] [facility] [place] [address] Care Team Providers Care Barrel Turner Name Role Phone Benny Wilkes MD Primary Care Provider [phone] Source Comments [facility],non-owned Affiliates and Associated Physician Practices is amultiple site organization consisting of ambulatory clinics and hospital sitesin [place], [place], [place] and [place]. This disclosure is being madepursuant to the Care Everywhere program and may not contain all information available regarding this patient. 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 Gender Identity Not on file Sexual Orientation [...] RENAL FUNCTION PANEL (05/17/2021 3:33 AM CDT) [facility] Glucose 104 70 - 105 mg/dL 05/17/2021 4:11 AM CDT [facility] Sodium 141 136 - 145 mmol/L 05/17/2021 4:11 AM CDT [facility] Potassium 3.5 3.5 - 5.1 mmol/L 05/17/2021 4:11 AM CDT [facility] Chloride 108(H) 98 - 107 mmol/L 05/17/2021 4:11 AM CDT [facility] CO2 22(L) 23 - 31 mmol/L 05/17/2021 4:11 AM CDT [facility] Calcium 8.4 8.4 - 10.4 mg/dL 05/17/2021 4:11 AM CDT [facility] Anion Gap 11 8 - 18 mmol/L 05/17/2021 4:11 AM CDT [facility] BUN 16 9.8 - 20.1 mg/dL 05/17/2021 4:11 AM CDT [facility] Creatinine 1.10 0.57 - 1.11 mg/dL 05/17/2021 4:11 AM CDT [facility] Albumin 3.5 3.2 - 4.6 gm/dL 05/17/2021 4:11 AM CDT [facility] Phosphorus 2.2(L) 2.3 - 4.7 mg/dL 05/17/2021 4:11 AM CDT [facility] eGFR by MDRD 48 mL/min/1.7 3m2 05/17/2021 4:11 AM CDT [facility] eGFR by MDRD 58 mL/min/1.7 3m2 05/17/2021 4:11 AM CDT [facility] Blood BLOOD SPECIMEN / Unknown Venipuncture / Unknown 05/17/2021 3:33 AM CDT 05/17/2021 3:45 AM CDT us Calixto Glass MD LAB - CHEMISTRY ORDERABLES Britany l Result [facility] [address] [place] [address] * (ABNORMAL) HEMOGLOBIN A1C (04/24/2021 3:41 AM CDT) Hemoglobin A1c 7.4(H) 4.2 - 5.6 % 04/24/2021 4:29 AM CDT [facility] Estimated Average Glucose 166 mg/dL 04/24/2021 4:29 AM CDT [facility] Blood BLOOD SPECIMEN / Unknown Venipuncture / Unknown 04/24/2021 3:41 AM CDT 04/24/2021 3:56 AM CDT Narrative [facility] - 04/24/2021 4:29 AM CDT The following cutoff levels are recommended by [place] [employer]. A1c > 6.5% : [...] LAB - CHEMISTRY ORDERABLES F inal Result [facility] [address] [place] [address] * DEXA BONE DENSITY 2 [...] Most Recently Relevant to Health Maintenance Insurance [facility] MEDICARE SELF PAY NO INSURANCE Member Subscriber Plan / Payer (Ef fective for All Dates) Name:Moriah Reed Member ID:Not on file Relation to Subscriber:Not on file Name:MORIAH REED Subscriber ID:Not on file (Home) Address: [facility] [address] [place] [id number] Payer ID:Not on file Group ID:Not on file Type:Self Pay Address: [place], [place] Advance Directives Documents on File Type Date Recorded Patient Polisher And Sander Expl anation Adv Directive/Living Will/POA 04/29/2021 9:18 [...] 5:11 PM 03/11/2021 2:27 PM Care Teams Barrel Turner Relationship Specialty Start Date End Date Benny Wilkes MD [address] [place] [address] PCP - General Internal Medicine 03/09/21
--- OUTSIDE RECORDS SUMMARY | 2025-04-09 20:32 | XMS_ITS | Encounter Summary ---
Author Organization [facility] Address [address] [facility] [place] [address] Care Team Providers Care Prison Psychiatrist Name Role Phone Benny Wilkes MD Primary Care Provider [phone] Encounter Details Date Type Department Care Team (Late st Contact Info) Description 04/27/2021 3:15 PM CDT Hospital Encounter [address] [id number] Lili Bethea MD [facility] [place] [phone] [address] 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
[2025-04-09 20:34] VITALS: BP 159/92; PULSE 122; RESP 20; TEMP 36.8; O2SAT 98
--- NOTE | 2025-04-09 21:22 | ED_ITS ---
HPI - Extremity Injury (Lower) General Chief Complaint: Extremity Injury, Lower Stated Complaint: R ankle pain after fall 2wks ago-NWB tonight/pain Time Seen by Provider: 04/09/25 21:21 History of Present Illness HPI Narrative: Patient is an 84-year-old female who presents to the ER with right ankle pain. She reports she injured her ankle approximately 2 weeks ago. Patient reports she has had minimal pain up until this afternoon when her pain started ?throbbing. She denies any new injury to the site. Patient reports her initial injury caused pain right around the ankle and now the pain radiates down her foot. She denies any calf pain, recent fevers, excessive redness or swelling, for numbness/tingling. Patient endorses increased pain when she tries to put pressure on the site. She denies any history of gout. Patient endorses a history of high blood pressure, atrial fibrillation, hyperlipidemia, and diabetes. Related Data Home Medications ?Medication ?Instructions ?Recorded ?Confirmed ?Last Taken ?Type atorvastatin 80 mg tablet 80 mg PO DAILY 07/03/21 04/07/25 Unknown History albuterol sulfate 90 mcg/actuation 2 puff inhalation Q4H PRN 06/23/24 04/07/25 Unknown History aerosol inhaler Shortness Of Breath fluoxetine 20 mg capsule 20 mg PO DAILY 06/23/24 04/07/25 Unknown History glimepiride 2 mg tablet 2 mg PO DAILY 06/23/24 04/07/25 Unknown History metformin 500 mg tablet,extended 500 mg PO DAILY 06/23/24 04/07/25 Unknown History release 24 hr famotidine 20 mg tablet 20 mg PO DAILY 11/25/24 04/07/25 Unknown History aspirin 325 mg tablet 325 mg PO DAILY 01/20/25 04/07/25 Unknown History spironolactone 25 mg tablet 25 mg PO DAILY 02/13/25 04/07/25 Unknown History Allergies Allergy/AdvReac Type Severity Reaction Status Date / Time No Known Drug Allergies Allergy Unknown Unknown Verified 04/09/25 20:36 Review of Systems Review of Systems: All systems reviewed & are unremarkable except as noted in HPI and below PMFSH Past Medical History Medical History Diastolic dysfunction Type 2 diabetes mellitus Right-sided heart failure Aortic valve stenosis Mild aortic valve stenosis with a valve area of 1.5 cm2 on echocardiogram in March 2022. Pulmonary hypertension Severe pulmonary hypertension with a PASP of 69 mmHg on echocardiogram in March 2022. 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 CODE STATUS: She is okay with CPR and medications but does not wish to be intubated. Modified code, updated. Smoking packs per day: 2 Smoking cigarettes per day: 40.0 Years smoked: 50 Smoking pack-years: 100.00 Smoking status: Former smoker Tobacco type: cigarettes Smoking end date: 06/08/20 Alcohol intake: never Substance use: never Substance use type: does not use Do You Feel Safe in your Home?: Yes Lack of Transportation: No Lack of Food: Never True Current Housing: I Have Housing Concerned About Future Housing: No Difficulty Paying Gas/Electric Bills: No Difficulty Paying for Meds: No Currently Unemployed: No Education: High School Diploma/GED Difficulty w/ Childcare or Family Care: No Additional living arrangements comments: Assisted living at [facility]. Additional occupation/education comments: Retired. Spiritual care concerns: No Exam Narrative: GENERAL: Well appearing, well-nourished, non-toxic, in no acute distress. HEAD: Normocephalic, atraumatic. NECK: Supple. No adenopathy, no masses. RESPIRATORY: Airway patent, respirations nonlabored. Clear to auscultation bilaterally, no rales, rhonchi, wheezing. CARDIOVASCULAR: irregular without murmurs, rubs, or gallops. Peripheral pulses 2+ and equal bilaterally. ABDOMINAL: Soft, nontender, nondistended, no hepatosplenomegaly. Normoactive BS. MUSCULOSKELETAL: Moves all extremities. Strength/ROM intact without gross deformities. No edema. Pain with flexion, extension, inversion and eversion of the left ankle. No swelling of the ankle, foot, or calf/LE. Mild bruising to ana sum pedis. SKIN: Warm, dry, normal color. No rashes. NEURO: A&O X3. Speech clear. Cranial nerves II-XII intact. No ataxic movements. PSYCHIATRIC: Appropriate mood and affect. Normal interaction. Course Vital Signs Vital signs: Vital Signs Temperature 36.8 C 04/09/25 20:34 Pulse Rate 122 H 04/09/25 20:34 Respiratory Rate 20 04/09/25 20:34 Blood Pressure 159/92 H 04/09/25 20:34 Pulse Oximetry 98 04/09/25 20:34 Oxygen Delivery Room Air 04/09/25 20:34 Temperature 36.8 C 04/09/25 23:23 Pulse Rate 76 04/09/25 23:23 Respiratory Rate 16 04/09/25 23:23 Blood Pressure 114/65 04/09/25 23:23 Pulse Oximetry 96 04/09/25 23:23 Oxygen Delivery Room Air 04/09/25 20:34 MDM - Extremity Injury (Lower) MDM Narrative Medical decision making narrative: Patient is an 84-year-old female who presents to the ER with right ankle pain. She reports she injured her ankle approximately 2 weeks ago. Patient reports she has had minimal pain up until this afternoon when her pain started ?throbbing. She denies any new injury to the site. Patient reports her initial injury caused pain right around the ankle and now the pain radiates down her foot. She denies any calf pain, recent fevers, excessive redness or swelling, for numbness/tingling. Patient endorses increased pain when she tries to put pressure on the site. She denies any history of gout. Patient endorses a history of high blood pressure, atrial fibrillation, hyperlipidemia, and diabetes. Labs Ordered: None necessary Imaging Ordered: Right ankle x-ray Medications Ordered: Ketchum p.o. Results: Pt's x-ray indicates Irregularity of the contour of the talar dome with loss of the convexity with associated sclerosis suggesting possible subacute fracture of the talar dome. Follow-up with MRI is recommended to evaluate for bony edema and possible fracture deformity in this area, and not likely visualized on CT examination. Diagnosis: Right talus subacute fracture Consults: Orthopedics (outpatient) Patient Education/Shared MDM: Results of imaging shared with patient. She endorses improvement of symptoms following medication administration. Patient's right foot was placed in a posterior and stirrup OCL. + CWMS. She reports she will be able to move around at home with her walker. Pt strongly advised to call orthopedic surgery as soon as possible. She will be discharged home with a prescription for Ketchum, but was advised to take these sparingly. Strict return precautions provided. Patient verbalized understanding and is in agreement with plan. Vital signs stable at time of discharge. All questions answered. Differential Diagnosis Differential diagnosis: Likely ankle sprain and strain, ankle fracture and other (Talus fracture) Imaging Data Attestation: I personally reviewed and interpreted this imaging study as follows: Radiologist's impression: Impressions Ankle X-Ray 04/09/25 21:11 IMPRESSION: Irregularity of the contour of the talar dome with loss of the convexity with associated sclerosis suggesting possible subacute fracture of the talar dome. Follow-up with MRI is recommended to evaluate for bony edema and possible fracture deformity in this area, and not likely visualized on CT examination. Discharge Plan Discharge Clinical Impression: Fracture of talus, Acute pain of right foot, History of atrial fibrillation Patient Disposition: Home Condition: Stable Instructions: Antibiotic Form, Talar Fracture in Adults (ED) Additional Instructions: Please return to the ER with any worsening symptoms. Follow-up with Orthopedic surgery as soon as possible. Please keep your splint on until you are evaluated. Take all medications as prescribed, including regularly scheduled medications. You may use Ketchum for pain control blood please be cautious to pr event falls when taking this medication. Patient Language: Greenlandic Prescriptions: New hydrocodone-acetaminophen 5-325 mg tablet 1 tablet PO Q8H PRN (Reason: pain) Qty: 10 0RF No Action famotidine 20 mg tablet 20 mg PO DAILY Eliquis 2.5 mg tablet 2.5 mg PO BID Qty: 180 2RF docusate sodium 100 mg capsule 100 mg PO BID Qty: 60 2RF magnesium citrate [OneLAX Magnesium Citrate] Solution 300 ml PO ONCE PRN (Reason: constipation) Qty: 296 0RF Rx Instructions: as a single dose as needed for 3-4 with BM. aspirin 325 mg tablet 325 mg PO DAILY atorvastatin 80 mg tablet 80 mg PO DAILY amlodipine [Norvasc] 5 mg Tablet 5 mg PO QAM 30 Days Qty: 30 0RF Jardiance 10 mg Tablet 10 mg PO DAILY 30 Days Qty: 30 0RF glimepiride 2 mg tablet 2 mg PO DAILY albuterol sulfate 90 mcg/actuation HFA aerosol inhaler 2 puff INHALATION Q4H PRN (Reason: Shortness Of Breath) fluoxetine 20 mg capsule 20 mg PO DAILY metformin 500 mg tablet extended release 24 hr 500 mg PO DAILY spironolactone 25 mg tablet 25 mg PO DAILY levothyroxine [Synthroid] 100 mcg Tablet 100 mcg PO DAILY@0630 30 Days Qty: 30 2RF levofloxacin 750 mg tablet 750 mg PO .q48 1 Days Qty: 1 0RF hydralazine 10 mg Tablet 10 mg PO BID 30 Days Qty: 60 2RF Follow-up/Referrals: PHYSICIAN NOT ON STAFF,NONSTAFF [Primary Care Provider] - Roderick Kothari MD [Physician] - (orthopedic surgery) Time of Disposition: 22:45
[2025-04-09] MEDS: HYDROcodone/acetaminophen (*CRX) 5-325 MG TABLET 1 TAB PO (21:33)
--- OUTSIDE RECORDS SUMMARY | 2025-04-09 21:48 | XMS_ITS | Encounter Summary ---
Author Organization [facility] Address [address] [place] [address] Care Team Providers Care Market Gardener Name Role Phone Benny Wilkes MD Primary Care Provider [phone] Encounter Details Date Type Department Care Team (Late st Contact Info) Description 04/27/2021 3:15 PM CDT Hospital Encounter [address] [phone] Lili Bethea MD [facility] [place] [phone] Aguilar Latham MD [facility] [address] [place] [phone] Eugene De Jesus MD [employer] [...] on file 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
--- OUTSIDE RECORDS SUMMARY | 2025-04-09 21:48 | XMS_ITS | Clinical Summary ---
Author Organization [facility] Address [address] [facility] [place] [address] Care Team Providers Care Compliance Lead Name Role Phone Benny Wilkes MD Primary Care Provider [phone] Source Comments [facility],non-owned Affiliates and Associated Physician Practices is amultiple site organization consisting of ambulatory clinics and hospital sitesin [place], [place], [place] and [place]. This disclosure is being madepursuant to the Care Everywhere program and may not contain all information available regarding this patient. 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 A1c > 6.5% : considered [...] LAB - CHEMISTRY ORDERABLES F inal Result [facility] [address] [place] [address] * DEXA BONE DENSITY 2 [...] Most Recently Relevant to Health Maintenance Insurance [facility] MEDICARE SELF PAY NO INSURANCE Member Subscriber Plan / Payer (Ef fective for All Dates) Name:Moriah Reed Member ID:Not on file Relation to Subscriber:Not on file Name:MORIAH REED Subscriber ID:Not on file (Home) Address: [facility] [address] [place] [id number] Payer ID:Not on file Group ID:Not on file Type:Self Pay Address: [place], [place] Advance Directives Documents on File Type Date Recorded Patient Telephone Maintenance Mechanic Expl anation Adv Directive/Living Will/POA 04/29/2021 9:18 [...] 5:11 PM 03/11/2021 2:27 PM Care Teams Compliance Lead Relationship Specialty Start Date End Date Benny Wilkes MD [address] [place] [address] PCP - General Internal Medicine 03/09/21
[2025-04-09 23:23] VITALS: BP 114/65; PULSE 76; RESP 16; TEMP 36.8; O2SAT 96
== END 2025-04-09 23:24 ==
PROVIDERS: Emergency Provider Registered Nurse
DX: S92.141A Displaced dome fracture of right talus, initial encounter for closed fracture (principal); I10 Essential (primary) hypertension; I35.0 Nonrheumatic aortic (valve) stenosis; I27.20 Pulmonary hypertension, unspecified; I48.0 Paroxysmal atrial fibrillation; I69.954 Hemiplegia and hemiparesis following unspecified cerebrovascular disease affecting left non-dominant side; E11.9 Type 2 diabetes mellitus without complications; E78.5 Hyperlipidemia, unspecified; E89.0 Postprocedural hypothyroidism; Z87.891 Personal history of nicotine dependence; Z90.711 Acquired absence of uterus with remaining cervical stump; Z79.82 Long term (current) use of aspirin; Z79.01 Long term (current) use of anticoagulants; Z79.84 Long term (current) use of oral hypoglycemic drugs; Z79.899 Other long term (current) drug therapy; X58.XXXA Exposure to other specified factors, initial encounter
CPT/HCPCS: 29515; 73610; 99284; A9270

== ENCOUNTER 2025-05-28 18:19 | Inpatient (IN) | payer OTHER, MEDICAID, SELFPAY ==
--- OUTSIDE RECORDS SUMMARY | 2021-04-27 15:15 | XMS_ITS | Encounter Summary ---
Author Organization [facility] Address [address] [place] [address] Care Team Providers Care Mail Opener Name Role Phone Benny Wilkes MD Primary Care Provider [phone] Encounter Details Date Type Department Care Team (Late st Contact Info) Description 04/27/2021 3:15 PM CDT Hospital Encounter [address] [id number] Lili Bethea MD [facility] [place] [id number] Aguilar Latham MD [facility] [address] [place] [phone] Eugene De Jesus MD [facility] Social History Tobacco Use Types Packs/Day Years Used Date Smoking Tobacco: Former Cigarettes Q uit: 09/03/2005 Smokeless Tobacco: Never Alcohol Use Standard Drinks/Week Comments Yes 0 (1 standard drink = 0.6 oz pur e alcohol) 2 glasses of wine/month PHQ-2 Answer Date Recorded PHQ2 TOTAL SCORE 0 05/16/2021 Comments No Sex and Gender Information Value Date Recorded Sex Assigned at Not on file 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 Answer Date of Assessment Author No 04/23/2021 5:30 PM Destiny Elkins RN * Is person blind or have serious difficulty seeing? Answer Date of Assessment Author No 04/23/2021 5:30 PM Destiny Elkins RN * Does person have serious difficulty walking/climbing stairs? Answer Date of Assessment Author Yes 04/23/2021 5:30 PM Destiny Elkins RN * Does person have difficulty dressing/bathing? Answer Date of Assessment Author Yes 04/23/2021 5:30 PM Destiny Elkins RN * Does person have difficulty doing errands alone? Answer Date of Assessment Author Yes 04/23/2021 5:30 PM Destiny Elkins RN documented as of this encounter Mental Status * Does person have difficulty concentrating/remembering/making decisions? Answer Entry Date Author Yes 04/23/2021 5:30 PM Destiny Elkins RN documented in this encounter Plan of Treatment Not on file documented as of this encounter Visit Diagnoses Not on filedocumented in this encounter Care Teams Mail Opener Relationship Specialty Start Date End Date Benny Wilkes MD [address] [place] [id number] PCP - General Internal Medicine 03/09/21 documented as of this encounter
[2025-05-28] VITALS (11 sets, daily range): BP systolic 113–158; BP diastolic 67–96; PULSE 78–101; RESP 19–23; TEMP 36.9–37.1; O2SAT 90–100; BMI 21.7
--- NOTE | ~2025-05-28 | XR_ITS ---
XR chest 1V portable 05/28/2025 19:00 Indication: Dyspnea Procedure: AP portable chest Comparison: Comparison to multiple prior studies sequentially, with oldest reviewed study dated 03/12/2023. Findings: There is diffuse bilateral airspace disease with peribronchial thickening, similar to prior examinations. Cardiomegaly. There is atherosclerosis and ectasia of the aorta. No pneumothorax. Impression: 1: Persistent diffuse bilateral airspace disease likely superimposed on chronic interstitial lung disease. Differential diagnosis includes chronic edema and atypical pneumonia. Reviewed, dictated and finalized at location O. Impression: 1: Persistent diffuse bilateral airspace disease likely superimposed on chronic interstitial lung disease. Differential diagnosis includes chronic edema and a typical pneumonia.
--- NOTE | ~2025-05-28 | CT_ITS ---
EXAMINATION: CT diagnostic chest wo con DATE: 05/28/2025 21:38 INDICATION: Difficulty breathing TECHNIQUE: Computed tomography (CT) of the chest was performed without intravenous contrast. The dose-length product was 223.55 mGy-cm. Automated exposure control and iterative reconstruction technique were employed. COMPARISON: Chest dated 05/28/2025 FINDINGS: Diffuse atherosclerosis of the aorta and coronary arteries. Cardiomegaly. No significant pleural or pericardial effusion. There are gallstones. There is nonobstructing right nephrolithiasis. There is an intermediate density exophytic 1.8 cm left renal mass laterally with a lower pole cyst as well. The liver, spleen, pancreas, adrenal glands are unremarkable. There is a nonobstructing left renal stone. There is atherosclerosis and ectasia of the aorta without aneurysm. There are multiple wedge compression deformities of the midthoracic spine, likely chronic. There is scoliosis. There is diffuse interstitial lung disease with areas of groundglass opacification and interlobular septal thickening, most likely reflecting mild edema. No endobronchial lesions. There is fluid in the left fissure. IMPRESSION: 1. Cardiomegaly with probable mild interstitial edema. 2: Gallstones. 3: Indeterminate 1.8 cm left renal mass. Correlation with contrast-enhanced CT or MRI recommended for further evaluation. 4: Nonobstructing bilateral nephrolithiasis. Reviewed, dictated and finalized at location O.
--- NOTE | 2025-05-28 18:21 | ECG_ITS ---
Test Date: 2025-05-28 18:22:35 Measurements Intervals [place] Rate: 110 P: 0 IN: 0 QRS: 22 QRSD: 82 T: -34 QT: 307 QTc: 416 Interpretive Statements ATRIAL FIBRILLATION WITH RAPID VENTRICULAR RESPONSE WITH ABERRANT CONDUCTION OR VENTRICULAR PREMATURE COMPLEXES NONSPECIFIC ST & T-WAVE ABNORMALITY ABNORMAL RHYTHM ECG Electronically Signed On 05-28-2025 19:07:26 CDT by Eugenie Saab M.D.
--- OUTSIDE RECORDS SUMMARY | 2025-05-28 18:52 | XMS_ITS | Clinical Summary ---
Author Organization [facility] [employer] Address [address] [place] [address] Care Team Providers Care Sheet Folder Name Role Phone Benny Wilkes MD Primary Care Provider [phone] Source Comments [facility] [employer],non-owned Affiliates and Associated Physician Practices is amultiple site organization consisting of ambulatory clinics and hospital sitesin [place], [place], [place] and [place]. This disclosure is being madepursuant to the Care Everywhere program and may not contain all information available regarding this patient. 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 Sodium 141 136 - 145 mmol/L 05/17/2021 4:11 AM CDT [facility] Potassium 3.5 3.5 - 5.1 mmol/L 05/17/2021 4:11 AM CDT [facility] Chloride 108(H) 98 - 107 mmol/L 05/17/2021 4:11 AM CDT [facility] CO2 22(L) 23 - 31 mmol/L 05/17/2021 4:11 AM CDT [facility] Calcium 8.4 8.4 - 10.4 mg/dL 05/17/2021 4:11 AM CDT [facility] Anion Gap 11 8 - 18 mmol/L 05/17/2021 4:11 AM CDT [facility] BUN 16 9.8 - 20.1 mg/dL 05/17/2021 4:11 AM CDT [facility] Creatinine 1.10 0.57 - 1.11 mg/dL 05/17/2021 4:11 AM CDT [facility] Albumin 3.5 3.2 - 4.6 gm/dL 05/17/2021 4:11 AM CDT [facility] Phosphorus 2.2(L) 2.3 - 4.7 mg/dL 05/17/2021 4:11 AM CDT [facility] eGFR by MDRD 48 mL/min/1.7 3m2 05/17/2021 4:11 AM CDT [facility] eGFR by MDRD 58 mL/min/1.7 3m2 05/17/2021 4:11 AM CDT [facility] Blood BLOOD SPECIMEN / Unknown Venipuncture / Unknown 05/17/2021 3:33 AM CDT 05/17/2021 3:45 AM CDT us Calixto Glass MD LAB - CHEMISTRY ORDERABLES Britany l Result [facility] [address] [place] [address] * (ABNORMAL) HEMOGLOBIN A1C (04/24/2021 3:41 AM CDT) Hemoglobin A1c 7.4(H) 4.2 - 5.6 % 04/24/2021 4:29 AM CDT [facility] Estimated Average Glucose 166 mg/dL 04/24/2021 4:29 AM CDT [facility] Blood BLOOD SPECIMEN / Unknown Venipuncture / Unknown 04/24/2021 3:41 AM CDT 04/24/2021 3:56 AM CDT Narrative [facility] - 04/24/2021 4:29 AM CDT The following cutoff levels are recommended by [place] [employer]. A1c > 6.5% : considered [...] LAB - CHEMISTRY ORDERABLES F inal Result [facility] [address] [place] [address] * DEXA BONE DENSITY 2 [...] Most Recently Relevant to Health Maintenance Insurance [facility] MEDICARE SELF PAY NO INSURANCE Member Subscriber Plan / Payer (Ef fective for All Dates) Name:Moriah Reed Member ID:Not on file Relation to Subscriber:Not on file Name:MORIAH REED Subscriber ID:Not on file (Home) Address: [facility] [address] [place] [id number] Payer ID:Not on file Group ID:Not on file Type:Self Pay Address: [place], [place] Advance Directives Documents on File Type Date Recorded Patient Electronics Warfare Technician Expl anation Adv Directive/Living Will/POA 04/29/2021 [...] 5:11 PM 03/11/2021 2:27 PM Care Teams Sheet Folder Relationship Specialty Start Date End Date Benny Wilkes MD [address] [place] [address] PCP - General Internal Medicine 03/09/21
[2025-05-28] MEDS: ONDANSETRON INJ 4 MG/2 ML VIAL IV PUSH (19:09)
[2025-05-28 19:13] LABS: Hematocrit 27.6 % (37.0-47.0); Hemoglobin 8.3 g/dL (12.0-15.0); Immature Granulocyte Percent A 1.2 % (0-0.5); Lymphocytes Absolute Auto 0.56 K/mm3 (0.9-3.2); Mean Corpuscular HGB Conc 30.1 g/dl (32-36); Mean Corpuscular Hemoglobin 24.7 pg (26-34); Mean Corpuscular Volume 82.1 fl (80-100); Nucleated Red Blood Cells Absolute Auto 0.000 K/mm3 (0.0-0.012); Nucleated Red Blood Cells Perc 0.0 % (0.0-0.2); Platelet Count Result 208 k/mm3 (150-375); Red Blood Count 3.36 M/mm3 (4.2-5.4); White Blood Count 5.8 K/mm3 (4.5-10.0)
[2025-05-28 19:19] LABS: Fractional Inspired Oxygen 28 %; HCO3 VBG 22.4 mEq/l (24.0-30.0); PCO2 VBG 39.5 mmHg (42.0-48.0); PO2 VBG 39.9 mmHg (35.0-45.0); pH VBG 7.372 (7.300-7.400)
[2025-05-28 19:20] LABS: Liters per Minute 2.0 LPM
[2025-05-28 19:25] LABS: Alanine Aminotransferase 16 U/L (6-35); Albumin Level 3.8 g/dL (3.5-5.1); Alkaline Phosphatase 137 U/L (38-126); Anion Gap 10 mmol/L (4-12); Aspartate Amino Transferase 27 U/L (14-36); Bilirubin,Total 0.5 mg/dL (0.2-1.3); Blood Urea Nitrogen 19 mg/dL (7-17); Calcium 8.6 mg/dL (8.4-10.2); Carbon Dioxide 22 mmol/L (22-30); Chloride 107 mmol/L (98-107); Estimated CRCL calculation 23 ml/min; Estimated Glomerular Filt Rate 40; Glucose 166 mg/dL (65-110); Lipase 244 U/L (23-300); Magnesium 2.1 mg/dL (1.6-2.3); Potassium 4.2 mmol/L (3.4-5.0); Sodium 139 mmol/L (137-145); Total Protein 7.1 g/dL (6.3-8.2)
[2025-05-28 19:34] LABS: NT Pro B Type Natriuretic Pept 4140 pg/mL (19.9-100)
[2025-05-28 19:45] LABS: INR 1.6; Prothrombin Time 18.7 Seconds (11.1-14.7)
[2025-05-28 19:46] LABS: Partial Thromboplastin Time 43.3 Seconds (22.3-36.8)
[2025-05-28 19:49] LABS: Influenza A QL RT-PCR Negative (Negative); Influenza B QL RT-PCR Negative (Negative); RSV RNA, RT-PCR Negative (Negative); SARS-CoV-2 RNA PCR Negative (Negative)
[2025-05-28 19:56] LABS: Thyroid Stimulating Hormone Reflex 1.600 uIU/mL (0.465-4.68)
--- NOTE | 2025-05-28 20:10 | PC.NURSE ---
This RN tried to call pts daughter. no repsonse.
--- NOTE | 2025-05-28 20:13 | ED.GENADULT ---
HPI - General Adult General Chief complaint: Arrhythmia/Palpitations Stated complaint: afib Time Seen by Provider: 05/28/25 18:25 History of Present Illness HPI narrative: This is an 84-year-old female presenting ED with chief complaint of palpitations. Patient says she feels like her heart is racing. She has history of AFib. Patient notes over last several days she has been nauseous with decreased oral intake. She denies fevers chest pain difficulty breathing or abdominal pain. No urinary symptoms. Per EMS there were runs of AFib with RVR and trigeminy and possibly V-tach. Related Data Home Medications ?Medication ?Instructions ?Recorded ?Confirmed ?Last Taken ?Type atorvastatin 80 mg tablet 80 mg PO DAILY 07/03/21 04/17/25 Unknown History albuterol sulfate 90 mcg/actuation 2 puff inhalation Q4H PRN 06/23/24 04/17/25 Unknown History aerosol inhaler Shortness Of Breath fluoxetine 20 mg capsule 20 mg PO DAILY 06/23/24 04/17/25 Unknown History glimepiride 2 mg tablet 2 mg PO DAILY 06/23/24 04/17/25 Unknown History metformin 500 mg tablet,extended 500 mg PO DAILY 06/23/24 04/17/25 Unknown History release 24 hr famotidine 20 mg tablet 20 mg PO DAILY 11/25/24 04/17/25 Unknown History spironolactone 25 mg tablet 25 mg PO DAILY 02/13/25 04/17/25 Unknown History wheat dextrin 3 gram/4 gram oral 1.5 g PO BID 04/15/25 04/17/25 Unknown History powder packet (Benefiber Sugar Free (dextrin)) Allergies Allergy/AdvReac Type Severity Reaction Status Date / Time No Known Drug Allergies Allergy Unknown Unknown Verified 05/28/25 18:43 [facility] Past Medical History Medical History Diastolic dysfunction Type 2 diabetes mellitus Right-sided heart failure Aortic valve stenosis Mild aortic valve stenosis with a valve area of 1.5 cm2 on echocardiogram in March 2022. Pulmonary hypertension Severe pulmonary hypertension with a PASP of 69 mmHg on echocardiogram in March 2022. 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 CODE STATUS: She is okay with CPR and medications but does not wish to be intubated. Modified code, updated. Smoking packs per day: 2 Smoking cigarettes per day: 40.0 Years smoked: 50 Smoking pack-years: 100.00 Smoking status: Former smoker Tobacco type: cigarettes Smoking end date: 06/08/20 Alcohol intake: never Substance use: never Substance use type: does not use Do You Feel Safe in your Home?: Yes Lack of Transportation: No Lack of Food: Never True Current Housing: I Have Housing Concerned About Future Housing: No Difficulty Paying Gas/Electric Bills: No Difficulty Paying for Meds: No Currently Unemployed: No Education: High School Diploma/GED Difficulty w/ Childcare or Family Care: No Additional living arrangements comments: Assisted living at [facility]. Additional occupation/education comments: Retired. Spiritual care concerns: No Exam Narrative: APPEARANCE: No apparent distress. Head: atraumatic. EYES: EOMI, NOSE: Atraumatic NECK: Trachea midline RESPIRATORY: Hypoxic on room air, subtle crackles in the bases CARDIOVASCULAR: Irregular, no peripheral edema ABDOMINAL: Soft nontender Rectal exam: Melanotic stool. Hemoccult positive MUSCULOSKELETAl: No obvious deformities NEURO: Alert. Moving 4/4 extremities SKIN:: Warm, dry. Normal color PSYCHIATRIC: Normal affect Course Vital Signs Vital signs: Vital Signs Temperature 98.5 F 05/28/25 18:15 Pulse Rate 101 H 05/28/25 18:15 Respiratory Rate 23 H 05/28/25 18:15 Blood Pressure 150/67 H 05/28/25 18:15 Pulse Oximetry 98 05/28/25 18:15 Oxygen Delivery Nasal Cannula 05/28/25 18:15 Oxygen Flow Rate 2 05/28/25 18:15 Temperature 98.5 F 05/28/25 18:15 Pulse Rate 78 05/28/25 20:08 Respiratory Rate 20 05/28/25 20:08 Blood Pressure 141/80 H 05/28/25 20:08 Pulse Oximetry 97 05/28/25 20:08 Oxygen Delivery Nasal Cannula 05/28/25 20:07 Oxygen Flow Rate 1 05/28/25 20:07 Medical Decision Making MDM Narrative Medical decision making narrative: -Course: A 4-year-old female presenting with chief complaint decreased oral intake, nausea and palpitations. On arrival she was hypoxic on room air and placed on 2 L nasal cannula given a dose of Zofran. Patient has crackles in the bases. EKG showed AFib with RVR although her rate improved and HR is now afib in 80s to 90s with occasional PVCs after 02 administration. Chest x-ray showed: Persistent diffuse bilateral airspace disease likely superimposed on chronic interstitial lung disease. Differential diagnosis includes chronic edema and atypical pneumonia. CT contrast ordered to further evaluate. Otherwise her workup significant for a 2.4 drop in hemoglobin since February of this year. Rectal exam showed melanotic stools/Hemoccult positive. Patient is on Eliquis. BNP elevated 4100. Echo from October 2024 significant for Diasolic dysfunction and pulmonary htn. Point of care ultrasound showed a plethoric IVC with less than 50% respiratory variation. Patient given 40 of IV Lasix. Patient was on telemetry monitoring throughout her stay in the ER and there were no rhythms outside of atrial fibrillation. Patient will be admitted to the hospital for further management for hypoxic respiratory failure. -DDX includes but is not limited to: CHF, pulmonary hypertension, pneumonia, PE less likely due to Eliquis use, -Co-morbidities complicating care: Diastolic dysfunction, pulmonary hypertension, -Independent interpretation of studies: Labs imaging reviewed Vital Signs Vital Signs: Vital Signs Temperature 98.5 F 05/28/25 18:15 Pulse Rate 101 H 05/28/25 18:15 Respiratory Rate 23 H 05/28/25 18:15 Blood Pressure 150/67 H 05/28/25 18:15 Pulse Oximetry 98 05/28/25 18:15 Oxygen Delivery Nasal Cannula 05/28/25 18:15 Oxygen Flow Rate 2 05/28/25 18:15 Temperature 98.5 F 05/28/25 18:15 Pulse Rate 78 05/28/25 20:08 Respiratory Rate 20 05/28/25 20:08 Blood Pressure 141/80 H 05/28/25 20:08 Pulse Oximetry 97 05/28/25 20:08 Oxygen Delivery Nasal Cannula 05/28/25 20:07 Oxygen Flow Rate 1 05/28/25 20:07 Lab Data 05/28/25 19:06 05/28/25 19:07 Labs: Lab Results 05/28/25 05/28/25 Range/Units 19:06 19:07 WBC 5.8 (4.5-10.0) K/mm3 RBC 3.36 L (4.2-5.4) M/mm3 Hgb 8.3 L (12.0-15.0) g/dL Hct 27.6 L (37.0-47.0) % MCV 82.1 (80-100) fl MCH 24.7 L (26-34) pg MCHC 30.1 L (32-36) g/dl RDW 14.7 H (11.5-14.5) % Plt Count 208 (150-375) k/mm3 MPV 9.1 (7.4-10.4) fl Immature Gran % (Auto) 1.2 H (0-0.5) % Neut % (Auto) 70.3 (45.5-73.1) % Lymph % (Auto) 9.7 L (18.3-44.2) % [place] % (Auto) 17.2 H (2.6-8.5) % Eos % (Auto) 1.4 (0-4.4) % Baso % (Auto) 0.2 (0.2-1.2) % Lymph # (Auto) 0.56 L (0.9-3.2) K/mm3 [place] # (Auto) 1.0 H (0.1-0.6) K/mm3 Eos # (Auto) 0.1 (0-0.3) K/mm3 Baso # (Auto) 0.0 (0.0-0.1) K/mm3 Abs Immat Gran (auto) 0.07 H (0.00-0.031) K/mm3 Absolute Neuts (auto) 4.1 (1.3-6.7) K/mm3 Absolute Nucleated RBC 0.000 (0.0-0.012) K/mm3 Nucleated RBC % 0.0 (0.0-0.2) % PT 18.7 H (11.1-14.7) Seconds INR 1.6 APTT 43.3 H (22.3-36.8) Seconds Sodium 139 (137-145) mmol/L Potassium 4.2 (3.4-5.0) mmol/L Chloride 107 (98-107) mmol/L Carbon Dioxide 22 (22-30) mmol/L Anion Gap 10 (4-12) mmol/L BUN 19 H (7-17) mg/dL Creatinine 1.27 H (0.7-1.0) mg/dL Estim Creat Clear Calc 23 ml/min Estimated GFR 40 L (59 - ) Glucose 166 H (65-110) mg/dL Lactic Acid 1.2 (0.7-2.0) mmol/L Calcium 8.6 (8.4-10.2) mg/dL Phosphorus 3.8 (2.5-4.5) mg/dL Magnesium 2.1 (1.6-2.3) mg/dL Total Bilirubin 0.5 (0.2-1.3) mg/dL AST 27 (14-36) U/L ALT 16 (6-35) U/L Alkaline Phosphatase 137 H (38-126) U/L NT-Pro-B Natriuret Pep 4140 H (19.9-100) pg/mL Total Protein 7.1 (6.3-8.2) g/dL Albumin 3.8 (3.5-5.1) g/dL Lipase 244 (23-300) U/L TSH (Reflex) 1.600 (0.465-4.68) uIU/mL Influenza A (RT-PCR) Negative (Negative) Influenza B (RT-PCR) Negative (Negative) RSV (RT-PCR) Negative (Negative) SARS-CoV-2 RNA (RT-PCR) Negative (Negative) ABG Data ABG results: 05/28/25 19:10 VBG pH 7.372 VBG pCO2 39.5 L VBG pO2 39.9 VBG HCO3 22.4 L O2 Delivery Device Nasal cannula O2 Liters/Min 2.0 FiO2 28 Discharge Plan Discharge Clinical Impression: Hypoxic respiratory failure, CHF (congestive heart failure), Pulmonary arterial hypertension, Anemia, Melena Patient Disposition: Still a Patient Condition: Stable Patient Language: Azeri Prescriptions: No Action famotidine 20 mg tablet 20 mg PO DAILY Eliquis 2.5 mg tablet 2.5 mg PO BID Qty: 180 2RF docusate sodium 100 mg capsule 100 mg PO BID Qty: 60 2RF magnesium citrate [OneLAX Magnesium Citrate] Solution 300 ml PO ONCE PRN (Reason: constipation) Qty: 296 0RF Rx Instructions: as a single dose as needed for 3-4 with BM. Benefiber Sugar Free (dextrin) 3 gram/4 gram powder in packet 1.5 g PO BID Rx Instructions: mix into at least 4 oz water or juice before administering atorvastatin 80 mg tablet 80 mg PO DAILY amlodipine [Norvasc] 5 mg Tablet 5 mg PO QAM 30 Days Qty: 30 0RF Jardiance 10 mg Tablet 10 mg PO DAILY 30 Days Qty: 30 0RF glimepiride 2 mg tablet 2 mg PO DAILY albuterol sulfate 90 mcg/actuation HFA aerosol inhaler 2 puff INHALATION Q4H PRN (Reason: Shortness Of Breath) fluoxetine 20 mg capsule 20 mg PO DAILY metformin 500 mg tablet extended release 24 hr 500 mg PO DAILY spironolactone 25 mg tablet 25 mg PO DAILY levothyroxine [Synthroid] 100 mcg Tablet 100 mcg PO DAILY@0630 30 Days Qty: 30 2RF hydralazine 10 mg Tablet 10 mg PO BID 30 Days Qty: 60 2RF Follow-up/Referrals: PHYSICIAN NOT ON STAFF,NONSTAFF [Primary Care Provider]
--- NOTE | 2025-05-28 20:47 | PC.NURSE ---
pt O2 was in the upper 80s on RA. pt had NC around her chin. This RN moved pts O2 to nasal and moved O2 to 2L. pt 93% on 2L at the moment.
[2025-05-28 20:51] LABS: Add Urine Microscopic? YES; Appearance Urine Cloudy (Clear); Glucose Urine UA 3+ mg/dL (Negative); Leukocyte Esterase Ur Negative LEU/UL (Negative); Nitrate Urine Negative (Negative); Non Pathogenic Casts 0-2; Specific Grav Ur 1.028 (1.001-1.035)
[2025-05-28] MEDS: FUROSEMIDE INJ 40 MG/4 ML VIAL IV PUSH (22:01)
--- NOTE | 2025-05-28 22:36 | PC.NURSE ---
Female purewick and new depend placed on patient.
--- NOTE | 2025-05-28 23:16 | ADMGEN ---
This patient, Moriah Grace, was admitted to Medical Room 346-01. Patient/family oriented to hospital policies and general routines including ID bracelet, bed and alarms, visiting hours, pain management, procedures, bathroom and other care routines, personal items, smoking policy, room service/diet, and visiting hours. Information on how to activate the Rapid Response Team has been discussed. Patient/Family are encouraged to report perceived risks to care and to ask questions if they do not understand what they are told or what they should do.
--- NOTE | 2025-05-28 23:24 | PM.IMHP ---
H&P: HPI History of Present Illness Date/Time: 05/28/25 23:24 Chief Complaint: ?heart felt funny? Narrative: 84-year-old female with a past medical history of paroxysmal atrial fibrillation on chronic anticoagulation with Eliquis, CHF with preserved ejection fraction, moderate mitral valve regurgitation, moderate pulmonary hypertension, chronic kidney disease, postoperative hypothyroidism and diabetes who presented to the ER via EMS from [facility] due to palpitations. Patient is a fair historian and reports that she has been having funny feeling in her chest on and off for couple of days. She reports that it is like ?when her heart acts up.? She does report some mild increased shortness of breath from baseline. She denies any chest pain. She has not had any nausea or vomiting. She denies any cough or congestion. She was afebrile on presentation to the ER. EMS reported that the patient was having variable rhythm during transport. She was initially in AFib RVR then went into a trigeminal rhythm and had a run of V-tach before going back into AFib RVR. Patient had been hospitalized in February due to AFib with slowed ventricular response and her metoprolol was stopped at that time. The patient was mildly tachycardic with her known underlying AFib on arrival to the ER. She was documented to be satting in the upper 80s on room air. Once the patient was placed on nasal cannula oxygen oxygen saturations improved to the mid upper 90s and the patient's tachycardia resolved. The patient remains in AFib but rate is controlled at time of my evaluation without evidence of frequent ectopy at the time of my review Chest x-ray in the ER demonstrated cardiomegaly with bilateral diffuse airspace opacities with likely chronic underlying interstitial lung disease. CT of the chest was ordered to further the wound many 8 underlying lung pathology and demonstrated cardiomegaly with findings suspicious for interstitial edema. Patient denies any increased abdominal swelling, lower extremity swelling or orthopnea. She was lying flat in bed in the left semi-[place] position. Review of Systems Review of Systems: Ten review of systems was noted with pertinent positives and negatives as per HPI. 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 His chronic urinary frequency but denies dysuria. [facility] Past Medical History Medical History (Updated 05/29/25 @ 03:06 by Shruthi J. Hopen, DO) Thyroid cancer Cirrhosis Suspected due to nodular appearance of liver on ultrasound from March 2022 but no history of ascites Hepatic steatosis Orthostatic hypotension Diastolic dysfunction Type 2 diabetes mellitus Right-sided heart failure Aortic valve stenosis Mild aortic valve stenosis with a valve area of 1.5 cm2 on echocardiogram in March 2022. Pulmonary hypertension Severe pulmonary hypertension with a PASP of 69 mmHg on echocardiogram in March 2022. 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 CODE STATUS: DNR/DNI (per patient request) Smoking packs per day: 2 Smoking cigarettes per day: 40.0 Years smoked: 50 Smoking pack-years: 100.00 Smoking status: Never smoker Tobacco type: cigarettes Smoking end date: 06/08/20 Alcohol intake: never Substance use: never Substance use type: does not use Do You Feel Safe in your Home?: Yes Lack of Transportation: No Lack of Food: Never True Current Housing: I Have Housing Concerned About Future Housing: No Difficulty Paying Gas/Electric Bills: No Difficulty Paying for Meds: No Currently Unemployed: No Education: High School Diploma/GED Difficulty w/ Childcare or Family Care: No Additional living arrangements comments: Assisted living at [facility]. Additional occupation/education comments: Retired. Spiritual care concerns: No Meds Home Medications and Allergies Home Medications ?Medication ?Instructions ?Recorded ?Confirmed ?Type atorvastatin 80 mg tablet 80 mg PO DAILY 07/03/21 05/28/25 History amlodipine 5 mg tablet (Norvasc) 5 mg PO QAM 1 month #30 tabs 03/15/23 05/28/25 Rx empagliflozin 10 mg tablet 10 mg PO DAILY 1 month #30 tabs 03/15/23 05/28/25 Rx (Jardiance) albuterol sulfate 90 mcg/actuation 2 puff inhalation Q4H PRN 06/23/24 05/28/25 History aerosol inhaler Shortness Of Breath fluoxetine 20 mg capsule 20 mg PO DAILY 06/23/24 05/28/25 History glimepiride 2 mg tablet 2 mg PO DAILY 06/23/24 05/28/25 History metformin 500 mg tablet,extended 500 mg PO DAILY 06/23/24 05/28/25 History release 24 hr docusate sodium 100 mg capsule 100 mg PO BID #60 caps 07/01/24 05/28/25 Rx magnesium citrate (OneLAX 300 ml PO ONCE PRN constipation 07/01/24 05/28/25 Rx Magnesium Citrate oral solution) #296 mL famotidine 20 mg tablet 20 mg PO DAILY 11/25/24 05/28/25 History spironolactone 25 mg tablet 25 mg PO DAILY 02/13/25 05/28/25 History levothyroxine 100 mcg tablet 100 mcg PO DAILY@0630 30 days #30 02/16/25 05/28/25 Rx (Synthroid) tabs apixaban 2.5 mg tablet (Eliquis) 2.5 mg PO BID #180 tabs 04/07/25 05/28/25 Rx wheat dextrin 3 gram/4 gram oral 1.5 g PO BID 04/15/25 05/28/25 History powder packet (Benefiber Sugar Free (dextrin)) hydralazine 10 mg tablet 10 mg PO Q12H 05/28/25 05/28/25 History Allergies Allergy/AdvReac Type Severity Reaction Status Date / Time No Known Drug Allergies Allergy Unknown Unknown Verified 05/28/25 18:43 Vital Signs Vital Signs - 24 hr 05/28/25 18:15 05/28/25 18:44 05/28/25 18:44 Temperature 98.5 F Pulse Rate 101 H 89 Respiratory Rate 23 H Blood Pressure 150/67 H Pulse Oximetry 98 99 Oxygen Delivery Nasal Cannula Nasal Cannula Oxygen Flow Rate 2 2 05/28/25 19:31 05/28/25 20:07 05/28/25 20:08 Temperature Pulse Rate 89 78 Respiratory Rate 19 20 Blood Pressure 158/96 H 141/80 H Pulse Oximetry 100 100 97 Oxygen Delivery Nasal Cannula Oxygen Flow Rate 1 05/28/25 20:37 05/28/25 20:57 05/28/25 22:06 Temperature Pulse Rate 86 82 Respiratory Rate 22 H 22 H Blood Pressure 127/82 113/94 H Pulse Oximetry 90 95 96 Oxygen Delivery Nasal Cannula Oxygen Flow Rate 2 05/28/25 22:42 05/28/25 23:02 05/28/25 23:02 Temperature 98.8 F Pulse Rate 82 94 88 Respiratory Rate 22 H 20 Blood Pressure 113/94 H 151/70 H Pulse Oximetry 96 98 Oxygen Delivery Oxygen Flow Rate Exam Narrative: Weight 53.9 kg BMI 21.7 Const: Other: Frail, elderly, well-nourished, lying flat in bed in the left semi flower position HENMT: Other: Head is normocephalic atraumatic, mucous membranes are tacky, no oral pharyngeal erythema, edentulous upper and lower jaw Eyes: Other: Pupils are equal and reactive with bilateral lens implants noted, mild conjunctival pallor, no scleral icterus Neck: Other: No JVD, no lymphadenopathy, loss of cervical lordosis Resp: Other: Clear to auscultation bilaterally, no increased work of breathing Cardio: Other: Irregularly irregular, tachycardic, 2+ bilateral radial pedal pulses, no JVD GI: Other: Soft, nontender, nondistended, positive bowel sounds : Other: Depends in place Back/Spine/Pelvis: Other: Thoracic kyphosis noted Skin: Other: Mild pallor, non jaundice, warm to touch Neuro: Other: Alert oriented to person, place, year and name of the current president, she has mild left facial droop, speech is clear Extrem: Other: No clubbing, cyanosis or edema Psych: Other: Flat affect, cooperative, judgment and insight intact H&P: Results Labs Labs: Laboratory Tests 05/28/25 19:06 05/28/25 19:07 05/28/25 05/28/25 05/28/25 19:06 19:07 19:10 WBC 5.8 RBC 3.36 L Hgb 8.3 L Hct 27.6 L MCV 82.1 MCH 24.7 L MCHC 30.1 L RDW 14.7 H Plt Count 208 MPV 9.1 Immature Gran % (Auto) 1.2 H Neut % (Auto) 70.3 Lymph % (Auto) 9.7 L [place] % (Auto) 17.2 H Eos % (Auto) 1.4 Baso % (Auto) 0.2 Lymph # (Auto) 0.56 L [place] # (Auto) 1.0 H Eos # (Auto) 0.1 Baso # (Auto) 0.0 Abs Immat Gran (auto) 0.07 H Absolute Neuts (auto) 4.1 Absolute Nucleated RBC 0.000 Nucleated RBC % 0.0 PT 18.7 H INR 1.6 APTT 43.3 H VBG pH 7.372 VBG pCO2 39.5 L VBG pO2 39.9 VBG HCO3 22.4 L O2 Delivery Device Nasal cannula O2 Liters/Min 2.0 FiO2 28 Sodium 139 Potassium 4.2 Chloride 107 Carbon Dioxide 22 Anion Gap 10 BUN 19 H Creatinine 1.27 H Estim Creat Clear Calc 23 Estimated GFR 40 L Glucose 166 H Lactic Acid 1.2 Calcium 8.6 Phosphorus 3.8 Magnesium 2.1 Total Bilirubin 0.5 AST 27 ALT 16 Alkaline Phosphatase 137 H NT-Pro-B Natriuret Pep 4140 H Total Protein 7.1 Albumin 3.8 Lipase 244 TSH (Reflex) 1.600 Urine Color Urine Appearance Urine pH Ur Specific [place] Urine Protein Urine Glucose (UA) Urine Ketones Ur Blood (Man) Urine Nitrate Urine Bilirubin Urine Urobilinogen Leukocyte Esterase Rfl Urine RBC Urine WBC Ur Squamous Epith Cells Urine Bacteria Urine Casts Influenza A (RT-PCR) Negative Influenza B (RT-PCR) Negative RSV (RT-PCR) Negative SARS-CoV-2 RNA (RT-PCR) Negative 05/28/25 20:38 WBC RBC Hgb Hct MCV MCH MCHC RDW Plt Count MPV Immature Gran % (Auto) Neut % (Auto) Lymph % (Auto) [place] % (Auto) Eos % (Auto) Baso % (Auto) Lymph # (Auto) [place] # (Auto) Eos # (Auto) Baso # (Auto) Abs Immat Gran (auto) Absolute Neuts (auto) Absolute Nucleated RBC Nucleated RBC % PT INR APTT VBG pH VBG pCO2 VBG pO2 VBG HCO3 O2 Delivery Device O2 Liters/Min FiO2 Sodium Potassium Chloride Carbon Dioxide Anion Gap BUN Creatinine Estim Creat Clear Calc Estimated GFR Glucose Lactic Acid Calcium Phosphorus Magnesium Total Bilirubin AST ALT Alkaline Phosphatase NT-Pro-B Natriuret Pep Total Protein Albumin Lipase TSH (Reflex) Urine Color Yellow Urine Appearance Cloudy H Urine pH 5.0 Ur Specific [place] 1.028 Urine Protein 3+ H Urine Glucose (UA) 3+ H Urine Ketones Trace H Ur Blood (Man) Trace Urine Nitrate Negative Urine Bilirubin Negative Urine Urobilinogen 1.0 Leukocyte Esterase Rfl Negative Urine RBC 6-10 H Urine WBC 0-5 Ur Squamous Epith Cells None seen Urine Bacteria 4+ Urine Casts 0-2 Influenza A (RT-PCR) Influenza B (RT-PCR) RSV (RT-PCR) SARS-CoV-2 RNA (RT-PCR) Impressions Chest X-Ray 05/28/25 19:07 Impression: 1: Persistent diffuse bilateral airspace disease likely superimposed on chronic interstitial lung disease. Differential diagnosis includes chronic edema and atypical pneumonia. Chest CT 05/28/25 21:39 IMPRESSION: 1. Cardiomegaly with probable mild interstitial edema. 2: Gallstones. 3: Indeterminate 1.8 cm left renal mass. Correlation with contrast-enhanced CT or MRI recommended for further evaluation. 4: Nonobstructing bilateral nephrolithiasis. Assessment and Plan Assessment and plan (1) CHF (congestive heart failure): Qualifiers: Heart failure type: right-sided Heart failure chronicity: acute on chronic Qualified Code(s): I50.813 - Acute on chronic right heart failure Code(s): I50.9 - Heart failure, unspecified Status: Acute (2) Acute hypoxic respiratory failure: Code(s): J96.01 - Acute respiratory failure with hypoxia Status: Acute (3) Melena: Code(s): K92.1 - Melena Status: Acute (4) Acute on chronic anemia: Code(s): D64.9 - Anemia, unspecified Status: Acute (5) Pulmonary arterial hypertension: Code(s): I27.21 - Secondary pulmonary arterial hypertension Status: Acute (6) Hypothyroidism: Code(s): E03.9 - Hypothyroidism, unspecified Status: Acute (7) Type 2 diabetes mellitus: Code(s): E11.9 - Type 2 diabetes mellitus without complications Status: Acute (8) Chronic anticoagulation: Code(s): Z79.01 - rn long term care (current) use of anticoagulants Status: Acute (9) Goals of care, counseling/discussion: Code(s): Z71.89 - Other specified counseling Status: Acute Plan Patient presents with acute hypoxic respiratory failure due to the acute CHF exacerbation. Hypoxic respiratory failure that resulted in increased cardiac irritability resulting AFib RVR with variable underlying arrhythmia. The patient received 40 mg IV Lasix in the ER. Will continue Lasix 20 mg IV daily. Patient follows with Dr. Gan as outpatient for which a consult has been placed for further recommendations on management. The patient's hypoxia has improved with 2 L nasal cannula. Will wean oxygen as tolerated. Will resume patient's home Eliquis Norvasc, hydralazine, spironolactone, Jardiance and atorvastatin. Will not initiate a rate or rhythm controlling agent due to the patient's prior history of AFib with slowed ventricular response. Will await further recommendations Cardiology. Will monitor I&O's and daily weights. Will repeat electrolyte panel and magnesium level in a.m.. Patient does have history of diabetes but is relatively euglycemic. Will hold patient's home metformin and glimepiride while hospitalized. Will continue home Jardiance will add low-dose sliding scale insulin with Accu-Cheks a.c. HS and hypoglycemia protocol as needed. Patient does have a history of postsurgical hypothyroidism: History of thyroid cancer. Patient had TSH performed in the ER that was normal. Will continue thyroid supplementation. At the time my evaluation patient was alert oriented and had capacity to make her own medical decisions. He stated that if her heart stopped she would not want CPR or intubation. As the patient at if that happened is she realized that she would . She confirms she wanted to pass peacefully in her sleep in would not want aggressive intervention. Subsequently patient's code status has been changed to DNR/DNI. Patient does have POLST form on the chart stating her code status is full code. She verbalized again that she would not want resuscitated in the case of . MEDICAL DECISION MAKING NARRATIVE -Spoke with the ED provider in detail regarding patient's evaluation, workup and management -Patient seen and examined at bedside -Collaborated with patient's nurse at the bedside in detail and addressed all concerns -Labs, electrolytes, radiology, investigations and test results personally reviewed and interpreted unless otherwise specified -ED/Consult/Nursing/Ancilliary notes on the chart reviewed and appreciated -Spoke with patient at bedside and diagnosis and plan of care was discussed. All questions answered. Quality VTE Prophylaxis VTE prophylaxis: pharmacologic ordered (Continue home Eliquis) Hospitalist MIPS Advance Care Plan I have confirmed that the patient's Advanced Care Plan is present, code status is documented, or surrogate decision maker is listed in patient medical record.: Yes Medication Reconciliation I have utilized all available resources to obtain, update and review the patients current medications (includes all prescriptions, OTC, herbals, cannabis, and nutritional supplements).: Yes
[2025-05-29] VITALS (12 sets, daily range): BP systolic 106–129; BP diastolic 52–66; PULSE 68–118; RESP 18–20; TEMP 36.8–37; O2SAT 98–100; BMI 22.8
[2025-05-29 06:00] LABS: Anion Gap 8 mmol/L (4-12); Blood Urea Nitrogen 20 mg/dL (7-17); Calcium 8.8 mg/dL (8.4-10.2); Carbon Dioxide 25 mmol/L (22-30); Chloride 107 mmol/L (98-107); Estimated CRCL calculation 21 ml/min; Estimated Glomerular Filt Rate 35; Glucose 88 mg/dL (65-110); Magnesium 2.1 mg/dL (1.6-2.3); Potassium 4.2 mmol/L (3.4-5.0); Sodium 140 mmol/L (137-145)
[2025-05-29] MEDS: LEVOTHYROXINE SODIUM 100 MCG TABLET PO (06:07)
--- NOTE | 2025-05-29 08:10 | PM.CNCAR ---
Assessment and Plan Assessment and plan (1) Hypertension: Code(s): I10 - Essential (primary) hypertension Status: Acute Assessment and Plan: Stable. (2) Hyperlipidemia: Code(s): E78.5 - Hyperlipidemia, unspecified Status: Acute Assessment and Plan: On Atorvastatin. (3) Atrial fibrillation: Code(s): I48.91 - Unspecified atrial fibrillation Status: Acute Assessment and Plan: In atrial fibrillation. [id number] 3. On Eliquis. Rate is mildly fast at 100 bpm. In past, she did not tolerate Metoprolol due to bradycardia. Discuss Watchman device also which may be needed given hemorrhoid bleeding and does not want surgery for it. Will start low dose Metoprolol Tarate 12.5 mg BID. 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 Hold Eliquis in light of bleeding and acutely anemic. Monitor Hb. Her symptoms probably due to anemia causing faster HR in atrial fib and diastolic heart failure. (4) Diastolic dysfunction: Code(s): I51.89 - Other ill-defined heart diseases Status: Acute Assessment and Plan: On Lasix 20 mg IV daily and on Spironolactone 25 mg daily. She may need low dose Lasix 20 mg PO as outpatient also. History of Present Illness History of Present Illness Consult date/time: 05/29/25 08:10 Reason For Visit: hypoxic resp failure Narrative: 84 yr old woman who is my regular cardiology patient admitted for sob and palpitations. She has a history of atrial fibrillation, diastolic dysfunction, hypertension, dyslipidemia, former smoking. Reports for last 2 days she felt more sob and palpitations and found to be more anemic with Hb 8.3 on Eliquis. States she noted bleeding from hemorrhoids again. She was hospitalized on 02/13/25 for weakness and bradycardia in atrial fibrillation, and Metoprolol stopped. She has fatigue. Normally,s he can walk up to 1/2 block with her walker prior to TAYLOR. Denies orthopnea, PND, edema, dizziness. Cardiovascular Procedures Echo/MUGA:: 10/13/24 Echo: EF 65-70%, mild LVH, diastolic dysfunction (E/e' 16), severe LAE, mod JARED, mild-mod MR, mild TR, trace PI, trace pericardial effusion. 03/13/23 Echo: EF 60-65%, mild LVH, diastolic dysfunction (E/e' 24), severe LAE, mild JARED, mild MR, mod TR, RVSP 70 mmHg. Electrophysiology:: 10/21/24 EKG: Atrial fibrillation at 70 bpm, PVC's, cannot r/o septal infarct, age indeterminate. 08/31/23 EKG: Atrial fibrillation at 44 bpm, cannot r/o septal infarct. 03/12/23 EKG: Atrial fibrillation at 65 bpm, delayed precordial R/S transition, borderline T wave in inferior leads. Stress Tests:: 03/30/25 Lexiscan myoview: Negative. 10/21/24 CXR: ILD. Left basilar pneumonia. Review of Systems Review of Systems: All systems reviewed & are unremarkable except as noted in HPI and below Constitutional: Constitutional: Reports as per HPI, Denies chills, Reports fatigue and Denies fever(s) Cardiovascular: Cardiovascular: Reports as per HPI, Denies chest pain and Reports irregular heart rhythm Respiratory: Respiratory: Reports as per HPI and Reports dyspnea Gastrointestinal: Gastrointestinal: Reports as per HPI and Denies abdominal pain Genitourinary: Genitourinary: Reports as per HPI Musculoskeletal: Musculoskeletal: Reports as per HPI Neurologic: Reports as per HPI, Denies dizziness and Denies syncope [facility] Past Medical History Medical History (Updated 05/29/25 @ 03:06 by Shruthi Rivera DO) Thyroid cancer Cirrhosis Suspected due to nodular appearance of liver on ultrasound from March 2022 but no history of ascites Hepatic steatosis Orthostatic hypotension Diastolic dysfunction Type 2 diabetes mellitus Right-sided heart failure Aortic valve stenosis Mild aortic valve stenosis with a valve area of 1.5 cm2 on echocardiogram in March 2022. Pulmonary hypertension Severe pulmonary hypertension with a PASP of 69 mmHg on echocardiogram in March 2022. 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 Hopen, DO) Social History: Surrogate decision-maker: Lorne Grace, daughter and son. CODE STATUS: DNR/DNI (per patient request) Smoking packs per day: 2 Smoking cigarettes per day: 40.0 Years smoked: 50 Smoking pack-years: 100.00 Smoking status: Never smoker Tobacco type: cigarettes Smoking end date: 06/08/20 Alcohol intake: never Substance use: never Substance use type: does not use Do You Feel Safe in your Home?: Yes Lack of Transportation: No Lack of Food: Never True Current Housing: I Have Housing Concerned About Future Housing: No Difficulty Paying Gas/Electric Bills: No Difficulty Paying for Meds: No Currently Unemployed: No Education: High School Diploma/GED Difficulty w/ Childcare or Family Care: No Additional living arrangements comments: Assisted living at [facility]. Additional occupation/education comments: Retired. Spiritual care concerns: No Meds Home Medications and Allergies Home Medications ?Medication ?Instructions ?Recorded ?Confirmed ?Type atorvastatin 80 mg tablet 80 mg PO DAILY 07/03/21 05/28/25 History amlodipine 5 mg tablet (Norvasc) 5 mg PO QAM 1 month #30 tabs 03/15/23 05/28/25 Rx empagliflozin 10 mg tablet 10 mg PO DAILY 1 month #30 tabs 03/15/23 05/28/25 Rx (Jardiance) albuterol sulfate 90 mcg/actuation 2 puff inhalation Q4H PRN 06/23/24 05/28/25 History aerosol inhaler Shortness Of Breath fluoxetine 20 mg capsule 20 mg PO DAILY 06/23/24 05/28/25 History glimepiride 2 mg tablet 2 mg PO DAILY 06/23/24 05/28/25 History metformin 500 mg tablet,extended 500 mg PO DAILY 06/23/24 05/28/25 History release 24 hr docusate sodium 100 mg capsule 100 mg PO BID #60 caps 07/01/24 05/28/25 Rx magnesium citrate (OneLAX 300 ml PO ONCE PRN constipation 07/01/24 05/28/25 Rx Magnesium Citrate oral solution) #296 mL famotidine 20 mg tablet 20 mg PO DAILY 11/25/24 05/28/25 History spironolactone 25 mg tablet 25 mg PO DAILY 02/13/25 05/28/25 History levothyroxine 100 mcg tablet 100 mcg PO DAILY@0630 30 days #30 02/16/25 05/28/25 Rx (Synthroid) tabs apixaban 2.5 mg tablet (Eliquis) 2.5 mg PO BID #180 tabs 04/07/25 05/28/25 Rx wheat dextrin 3 gram/4 gram oral 1.5 g PO BID 04/15/25 05/28/25 History powder packet (Benefiber Sugar Free (dextrin)) hydralazine 10 mg tablet 10 mg PO Q12H 05/28/25 05/28/25 History Allergies Allergy/AdvReac Type Severity Reaction Status Date / Time No Known Drug Allergies Allergy Unknown Unknown Verified 05/28/25 18:43 Vital Signs Vital Signs - 24 hr 05/28/25 18:15 05/28/25 18:44 05/28/25 18:44 Temperature 98.5 F Pulse Rate 101 H 89 Respiratory Rate 23 H Blood Pressure 150/67 H Pulse Oximetry 98 99 Oxygen Delivery Nasal Cannula Nasal Cannula Oxygen Flow Rate 2 2 05/28/25 19:31 05/28/25 20:07 05/28/25 20:08 Temperature Pulse Rate 89 78 Respiratory Rate 19 20 Blood Pressure 158/96 H 141/80 H Pulse Oximetry 100 100 97 Oxygen Delivery Nasal Cannula Oxygen Flow Rate 1 05/28/25 20:37 05/28/25 20:57 05/28/25 22:06 Temperature Pulse Rate 86 82 Respiratory Rate 22 H 22 H Blood Pressure 127/82 113/94 H Pulse Oximetry 90 95 96 Oxygen Delivery Nasal Cannula Oxygen Flow Rate 2 05/28/25 22:42 05/28/25 23:00 05/28/25 23:02 Temperature 98.8 F Pulse Rate 82 94 Respiratory Rate 22 H 20 Blood Pressure 113/94 H 151/70 H Pulse Oximetry 96 98 98 Oxygen Delivery Nasal Cannula Oxygen Flow Rate 2 05/28/25 23:02 05/29/25 00:00 05/29/25 03:51 Temperature 98.6 F Pulse Rate 88 88 69 Respiratory Rate 20 Blood Pressure 106/66 Pulse Oximetry 98 Oxygen Delivery Oxygen Flow Rate 05/29/25 04:00 Temperature Pulse Rate 85 Respiratory Rate Blood Pressure Pulse Oximetry Oxygen Delivery Oxygen Flow Rate Exam Const: General: cooperative, healthy appearing and comfortable Resp: Auscultation: clear to auscultation bilaterally, no crackles, no rales, no rhonchi and no wheezes Cardio: Rate: tachycardic Rhythm: abnormal rhythm Heart sounds: no murmurs Peripheral pulses: dorsalis pedis present GI: GI Palp: No abdominal tenderness and Yes Soft to palpation Neuro: General: oriented to person, oriented to place and oriented to time Extrem: Right lower extremity: no edema Left lower extremity: no edema Results Labs and Meds 05/28/25 19:06 05/29/25 05:21 Lab results: Cardiac Enzymes 05/28/25 Range/Units 19:07 AST 27 (14-36) U/L Coagulation 05/28/25 Range/Units 19:07 PT 18.7 H (11.1-14.7) Seconds APTT 43.3 H (22.3-36.8) Seconds CBC 05/28/25 Range/Units 19:06 WBC 5.8 (4.5-10.0) K/mm3 RBC 3.36 L (4.2-5.4) M/mm3 Hgb 8.3 L (12.0-15.0) g/dL Hct 27.6 L (37.0-47.0) % Plt Count 208 (150-375) k/mm3 Lymph # (Auto) 0.56 L (0.9-3.2) K/mm3 [place] # (Auto) 1.0 H (0.1-0.6) K/mm3 Eos # (Auto) 0.1 (0-0.3) K/mm3 Baso # (Auto) 0.0 (0.0-0.1) K/mm3 Comprehensive Metabolic Panel 05/28/25 05/29/25 Range/Units 19:07 05:21 Sodium 139 140 (137-145) mmol/L Potassium 4.2 4.2 (3.4-5.0) mmol/L Chloride 107 107 (98-107) mmol/L Carbon Dioxide 22 25 (22-30) mmol/L BUN 19 H 20 H (7-17) mg/dL Creatinine 1.27 H 1.44 H (0.7-1.0) mg/dL Glucose 166 H 88 (65-110) mg/dL Calcium 8.6 8.8 (8.4-10.2) mg/dL AST 27 (14-36) U/L ALT 16 (6-35) U/L Alkaline Phosphatase 137 H (38-126) U/L Total Protein 7.1 (6.3-8.2) g/dL Albumin 3.8 (3.5-5.1) g/dL Intake and Output 05/28/25 05/29/25 05/29/25 23:59 07:59 15:59 Output Total 75 100 Balance -75 -100 Output: Urine 75 Catheter Urine 100 External/Condom 100 Other: # Incontinent Voids 2 Patient Weight 05/29/25 23:59 Weight 54.1 kg
[2025-05-29] MEDS: ATORVASTATIN 40 MG TABLET 80 MG PO (08:57)
[2025-05-29] MEDS: FAMOTIDINE 20 MG TABLET PO (08:57)
[2025-05-29] MEDS: FUROSEMIDE INJ 40 MG/4 ML VIAL 20 MG IV PUSH (08:57)
[2025-05-29] MEDS: DOCUSATE SODIUM 100 MG CAPSULE PO ×2 (08:57→21:06)
[2025-05-29] MEDS: SPIRONOLACTONE 25 MG TABLET PO (08:57)
[2025-05-29] MEDS: EMPAGLIFLOZIN 10 MG TABLET PO (08:57)
[2025-05-29] MEDS: METOPROLOL TARTRATE 12.5 MG TABLET PO ×2 (08:58→21:06)
--- NOTE | 2025-05-29 14:31 | P.PNIM_ITS ---
Progress Note: A&P Assessment and Plan (1) CHF (congestive heart failure): Qualifiers: Heart failure chronicity: acute on chronic Heart failure type: right- sided Qualified Code(s): I50.813 - Acute on chronic right heart failure Code(s): I50.9 - Heart failure, unspecified Status: Acute Assessment and Plan: Acute on chronic diastolic heart failure last echocardiogram October 2024 with diastolic dysfunction and LVEF 65-70% showing atrial fibrillation and moderate pulmonary hypertension pressure 54 mm Hg. * cardiology consulted: see Dr. Gan O/P * IV Lasix 20 mg IVP * monitor renal function during diuresis * EKG: Atrial fibrillation with rapid ventricular rate * ct: Cardiomegaly with mild interstitial edema * Continues spironolactone * Daily weight. * Fall risk assessment. (2) Atrial fibrillation with RVR: Code(s): I48.91 - Unspecified atrial fibrillation Status: Acute Assessment and Plan: Patient with history of atrial fibrillation presented in our ER CHF exacerbation * Cardiology consulted * Cardiology recommended attempting metoprolol however last time patient received metoprolol she went bradycardic, there is concern that she may Roney/tachy syndrome and may need pacemaker cardiology also spoke to daughter Watchman to to her anemia * Currently holding Eliquis * Continuous cardiac monitoring (3) Acute hypoxic respiratory failure: Code(s): J96.01 - Acute respiratory failure with hypoxia Status: Acute Assessment and Plan: Patient presented with acute respiratory failure with hypoxia with crying 2 L supplemental oxygen to maintain 92% patient currently does not any history of wearing oxygen at home please secondary to CHF exacerbation and AFib with RVR. * Will continue to wean supplemental oxygen to maintain 92% (4) Melena: Code(s): K92.1 - Melena Status: Acute Assessment and Plan: Patient with history of hemorrhoids but does not want any surgical intervention * Will continue to monitor H&H * holding Eliquis (5) Acute on chronic anemia: Code(s): D64.9 - Anemia, unspecified Status: Acute Assessment and Plan: * Trend H&H * Transfuse if HGB under 7 * Monitor for any concern for GIB (6) Hypothyroidism: Code(s): E03.9 - Hypothyroidism, unspecified Status: Acute Assessment and Plan: * Continue levothyroxine * TSH within WNL (7) Type 2 diabetes mellitus: Code(s): E11.9 - Type 2 diabetes mellitus without complications Status: Acute Assessment and Plan: * Will patient's glimepiride and metformin * Accu-Jamari araujo HS * SSI low-dose * Diabetic diet * Hypoglycemic protocol (8) Chronic anticoagulation: Code(s): Z79.01 - residential (current) use of anticoagulants Status: Acute Assessment and Plan: Patient on Eliquis 2.5 mg chronically for atrial fibrillation * Holding Eliquis at this time per Cardiology recommendation Plan Code status: DNR/DNI DVT prophylaxis: SCDs Stress ulcer prophylaxis: NA PT/OT notes: Ambulatory Disposition: Patient initially admitted to medical unit however I have trans ferred to IMU for close cardiac monitoring due to the initiation of her metoprolol in some concern for possible bradycardia with Roney/tachy syndrome need for pacemaker. Will continue to wean oxygen as tolerated plan is to return home discharge. Time Spent With Patient Time with patient: 25 - 35 minutes Subjective Date/time seen: 05/29/25 14:31 Interval history: Patient is 84-year-old female admitted for acute respiratory failure with hypoxia secondary to CHF exacerbation AFib RVR. 05/29/2025: Assumed Care Patient seen up in chair no acute distress states she feels better than she did when she arrived to the emergency department and is breathing a little bit easier. Patient's HR still in the low 110. Patient denied any chest pain, nausea, vomiting was tolerating oral intake with no fever chills reported over all feeling better. Review of Systems Review of Systems: All systems reviewed & are unremarkable except as noted in HPI and below Exam Const: General: comfortable and no acute distress Other: Frail, elderly female up in chair HENMT: Mouth: Yes moist mucous membranes Eyes: General: appearance normal, both eyes and all related structures Neck: Neck: supple and no JVD Resp: Effort & Inspection: normal respiratory effort Auscultation: diminished lung sounds bilateral Cardio: Other: Irregularly irregular GI: GI Palp: Yes Soft to palpation Auscultation: normal bowel sounds : Other: Depends in place Back/Spine/Pelvis: Other: Thoracic kyphosis noted Skin: General skin exam: normal color and no rashes or lesions noted Wounds: no wounds Neuro: Speech: normal speech Motor exam (neuro): 5/5 motor strength present throughout Sensory Exam: normal sensation Extrem: Other: No clubbing, cyanosis or edema Psych: Mental Status: mental status grossly normal Affect: normal affect Objective Data Vital Signs Vital Signs: Vital Signs - 24 hr 05/28/25 18:15 05/28/25 18:44 05/28/25 18:44 Temperature 98.5 F Pulse Rate 101 H 89 Respiratory Rate 23 H Blood Pressure 150/67 H Pulse Oximetry 98 99 Oxygen Delivery Nasal Cannula Nasal Cannula Oxygen Flow Rate 2 2 05/28/25 19:31 05/28/25 20:07 05/28/25 20:08 Temperature Pulse Rate 89 78 Respiratory Rate 19 20 Blood Pressure 158/96 H 141/80 H Pulse Oximetry 100 100 97 Oxygen Delivery Nasal Cannula Oxygen Flow Rate 1 05/28/25 20:37 05/28/25 20:57 05/28/25 22:06 Temperature Pulse Rate 86 82 Respiratory Rate 22 H 22 H Blood Pressure 127/82 113/94 H Pulse Oximetry 90 95 96 Oxygen Delivery Nasal Cannula Oxygen Flow Rate 2 05/28/25 22:42 05/28/25 23:00 05/28/25 23:02 Temperature 98.8 F Pulse Rate 82 94 Respiratory Rate 22 H 20 Blood Pressure 113/94 H 151/70 H Pulse Oximetry 96 98 98 Oxygen Delivery Nasal Cannula Oxygen Flow Rate 2 05/28/25 23:02 05/29/25 00:00 05/29/25 03:51 Temperature 98.6 F Pulse Rate 88 88 69 Respiratory Rate 20 Blood Pressure 106/66 Pulse Oximetry 98 Oxygen Delivery Oxygen Flow Rate 05/29/25 04:00 05/29/25 08:00 05/29/25 08:00 Temperature Pulse Rate 85 87 108 H Respiratory Rate 20 Blood Pressure Pulse Oximetry 98 Oxygen Delivery Nasal Cannula Oxygen Flow Rate 2 05/29/25 08:58 05/29/25 12:00 Temperature Pulse Rate 108 H 118 H Respiratory Rate Blood Pressure Pulse Oximetry Oxygen Delivery Oxygen Flow Rate Intake/Output Intake/Output: Intake & Output 05/26/25 05/27/25 05/28/25 05/29/25 23:59 23:59 23:59 23:59 Intake Total 600 Output Total 75 100 Balance -75 500 Meds/Results Medications: Active Medications Generic Name Dose Route Start Last Admin Trade Name Freq PRN Reason Stop Dose Admin Acetaminophen 650 mg 05/29/25 08:55 Acetaminophen 325 Mg Tablet PO Q6H PRN Mild Pain (1-3) or Fever Amlodipine Besylate 5 mg 05/29/25 09:00 05/29/25 08:57 Amlodipine Besylate 5 Mg Tablet PO 5 mg QAM ORLY Administration Apixaban 2.5 mg 05/29/25 09:00 Apixaban 2.5 Mg Tablet PO On Hold: 05/29/25 09:00 Q12HR ORLY Atorvastatin Calcium 80 mg 05/29/25 09:00 05/29/25 08:57 Atorvastatin 40 Mg Tablet PO 80 mg DAILY ORLY Administration Dextrose 12.5 gm 05/29/25 02:40 Dextrose 50% 25 Gm/50 Ml Syringe IV PUSH PRN PRN Hypoglycemia Protocol Docusate Sodium 100 mg 05/29/25 09:00 05/29/25 08:57 Docusate Sodium 100 Mg Capsule PO 100 mg Q12HR ORLY Administration Empagliflozin 10 mg 05/29/25 09:00 05/29/25 08:57 Empagliflozin 10 Mg Tablet PO 10 mg DAILY ORLY Administration Famotidine 20 mg 05/29/25 09:00 05/29/25 08:57 Famotidine 20 Mg Tablet PO 20 mg DAILY ORLY Administration Fluoxetine HCl 20 mg 05/29/25 09:00 05/29/25 08:57 Fluoxetine Hcl 20 Mg Capsule PO 20 mg DAILY ORLY Administration Furosemide 20 mg 05/29/25 09:00 05/29/25 08:57 Furosemide Inj 40 Mg/4 Ml Vial IV PUSH 20 mg DAILY ORLY Administration Glucagon 1 mg 05/29/25 02:40 Glucagon For Inj 1 Mg Vial IM PRN PRN Hypoglycemia Protocol Glucose 15 gm 05/29/25 02:40 Glucose Oral Gel 15 Gm Of Glucse In 37.5 Gm Tube PO PRN PRN Hypoglycemia Protocol Hydralazine HCl 10 mg 05/29/25 09:00 05/29/25 08:57 Hydralazine 10 Mg Tablet PO 10 mg Q12HR ORLY Administration Dextrose 1,000 mls @ 100 mls/hr 05/29/25 02:40 Dextrose 5% 1,000 Ml IVPB PRN PRN Hypoglycemia Protocol Insulin Aspart 2 - 5 units 05/29/25 08:00 05/29/25 12:00 Insulin Aspart (*Bkc) 100 Units/Ml SUB-Q Not Given TIDWM ORLY Protocol Levothyroxine Sodium 100 mcg 05/29/25 06:30 05/29/25 06:07 Levothyroxine Sodium 100 Mcg Tablet PO 100 mcg DAILY@0630 ORLY Administration Metoprolol Tartrate 12.5 mg 05/29/25 09:00 05/29/25 08:58 Metoprolol Tartrate 12.5 Mg Tablet PO 12.5 mg Q12HR ORLY Administration Spironolactone 25 mg 05/29/25 09:00 05/29/25 08:57 Spironolactone 25 Mg Tablet PO 25 mg DAILY ORLY Administration Radiology Results: ITS Impressions Chest X-Ray 05/28/25 19:07 Impression: 1: Persistent diffuse bilateral airspace disease likely superimposed on chronic interstitial lung disease. Differential diagnosis includes chronic edema and atypical pneumonia. Chest CT 05/28/25 21:39 IMPRESSION: 1. Cardiomegaly with probable mild interstitial edema. 2: Gallstones. 3: Indeterminate 1.8 cm left renal mass. Correlation with contrast-enhanced CT or MRI recommended for further evaluation. 4: Nonobstructing bilateral nephrolithiasis. Labs Labs: Laboratory Results - last 24 hr 05/28/25 05/28/25 05/28/25 19:06 19:07 19:10 WBC 5.8 RBC 3.36 L Hgb 8.3 L Hct 27.6 L MCV 82.1 MCH 24.7 L MCHC 30.1 L RDW 14.7 H Plt Count 208 MPV 9.1 Immature Gran % (Auto) 1.2 H Neut % (Auto) 70.3 Lymph % (Auto) 9.7 L [place] % (Auto) 17.2 H Eos % (Auto) 1.4 Baso % (Auto) 0.2 Lymph # (Auto) 0.56 L [place] # (Auto) 1.0 H Eos # (Auto) 0.1 Baso # (Auto) 0.0 Abs Immat Gran (auto) 0.07 H Absolute Neuts (auto) 4.1 Absolute Nucleated RBC 0.000 Nucleated RBC % 0.0 PT 18.7 H INR 1.6 APTT 43.3 H VBG pH 7.372 VBG pCO2 39.5 L VBG pO2 39.9 VBG HCO3 22.4 L O2 Delivery Device Nasal cannula O2 Liters/Min 2.0 FiO2 28 Sodium 139 Potassium 4.2 Chloride 107 Carbon Dioxide 22 Anion Gap 10 BUN 19 H Creatinine 1.27 H Estim Creat Clear Calc 23 Estimated GFR 40 L Glucose 166 H POC Capillary Glucose Lactic Acid 1.2 Calcium 8.6 Phosphorus 3.8 Magnesium 2.1 Total Bilirubin 0.5 AST 27 ALT 16 Alkaline Phosphatase 137 H NT-Pro-B Natriuret Pep 4140 H Total Protein 7.1 Albumin 3.8 Lipase 244 TSH (Reflex) 1.600 Urine Color Urine Appearance Urine pH Ur Specific [place] Urine Protein Urine Glucose (UA) Urine Ketones Ur Blood (Man) Urine Nitrate Urine Bilirubin Urine Urobilinogen Leukocyte Esterase Rfl Urine RBC Urine WBC Ur Squamous Epith Cells Urine Bacteria Urine Casts Influenza A (RT-PCR) Negative Influenza B (RT-PCR) Negative RSV (RT-PCR) Negative SARS-CoV-2 RNA (RT-PCR) Negative 05/28/25 05/29/25 05/29/25 20:38 05:21 08:08 WBC RBC Hgb Hct MCV MCH MCHC RDW Plt Count MPV Immature Gran % (Auto) Neut % (Auto) Lymph % (Auto) [place] % (Auto) Eos % (Auto) Baso % (Auto) Lymph # (Auto) [place] # (Auto) Eos # (Auto) Baso # (Auto) Abs Immat Gran (auto) Absolute Neuts (auto) Absolute Nucleated RBC Nucleated RBC % PT INR APTT VBG pH VBG pCO2 VBG pO2 VBG HCO3 O2 Delivery Device O2 Liters/Min FiO2 Sodium 140 Potassium 4.2 Chloride 107 Carbon Dioxide 25 Anion Gap 8 BUN 20 H Creatinine 1.44 H Estim Creat Clear Calc 21 Estimated GFR 35 L Glucose 88 POC Capillary Glucose 85 Lactic Acid Calcium 8.8 Phosphorus Magnesium 2.1 Total Bilirubin AST ALT Alkaline Phosphatase NT-Pro-B Natriuret Pep Total Protein Albumin Lipase TSH (Reflex) Urine Color Yellow Urine Appearance Cloudy H Urine pH 5.0 Ur Specific [place] 1.028 Urine Protein 3+ H Urine Glucose (UA) 3+ H Urine Ketones Trace H Ur Blood (Man) Trace Urine Nitrate Negative Urine Bilirubin Negative Urine Urobilinogen 1.0 Leukocyte Esterase Rfl Negative Urine RBC 6-10 H Urine WBC 0-5 Ur Squamous Epith Cells None seen Urine Bacteria 4+ Urine Casts 0-2 Influenza A (RT-PCR) Influenza B (RT-PCR) RSV (RT-PCR) SARS-CoV-2 RNA (RT-PCR) 05/29/25 11:32 WBC RBC Hgb Hct MCV MCH MCHC RDW Plt Count MPV Immature Gran % (Auto) Neut % (Auto) Lymph % (Auto) [place] % (Auto) Eos % (Auto) Baso % (Auto) Lymph # (Auto) [place] # (Auto) Eos # (Auto) Baso # (Auto) Abs Immat Gran (auto) Absolute Neuts (auto) Absolute Nucleated RBC Nucleated RBC % PT INR APTT VBG pH VBG pCO2 VBG pO2 VBG HCO3 O2 Delivery Device O2 Liters/Min FiO2 Sodium Potassium Chloride Carbon Dioxide Anion Gap BUN Creatinine Estim Creat Clear Calc Estimated GFR Glucose POC Capillary Glucose 137 H Lactic Acid Calcium Phosphorus Magnesium Total Bilirubin AST ALT Alkaline Phosphatase NT-Pro-B Natriuret Pep Total Protein Albumin Lipase TSH (Reflex) Urine Color Urine Appearance Urine pH Ur Specific [place] Urine Protein Urine Glucose (UA) Urine Ketones Ur Blood (Man) Urine Nitrate Urine Bilirubin Urine Urobilinogen Leukocyte Esterase Rfl Urine RBC Urine WBC Ur Squamous Epith Cells Urine Bacteria Urine Casts Influenza A (RT-PCR) Influenza B (RT-PCR) RSV (RT-PCR) SARS-CoV-2 RNA (RT-PCR) Quality VTE Prophylaxis VTE prophylaxis: mechanical ordered -Patient's previous records reviewed on admission -ER notes reviewed in detail on admission -discussed all findings and current treatment plan with patient/Family/POA -Consultations reviewed for recommendations -Patient's disposition for safe discharge discussed with case worker -radiology imaging, EKG and test results personally reviewed and interpreted unless otherwise specified Dictation performed by [employer] direct speech recognition software, therefore construction trades teacher variants and typographical errors may occur. Hospitalist MIPS Advance Care Plan I have confirmed that the patient's Advanced Care Plan is present, code status is documented, or surrogate decision maker is listed in patient medical record.: Yes Medication Reconciliation I have utilized all available resources to obtain, update and review the patients current medications (includes all prescriptions, OTC, herbals, cannabis, and nutritional supplements).: Yes The patient is not eligible for med reconciliation; the patient is in a emergent medical situation where delaying treatment would jeopardize the patients health.: No
[2025-05-29] MEDS: INSULIN ASPART (*BKC) 100 UNITS/ML SUB-Q (16:33)
[2025-05-30] VITALS (17 sets, daily range): BP systolic 99–161; BP diastolic 40–86; PULSE 63–94; RESP 16–22; TEMP 36.4–36.9; O2SAT 89–100
[2025-05-30 04:40] LABS: Hematocrit 28.5 % (37.0-47.0); Hemoglobin 8.2 g/dL (12.0-15.0); Mean Corpuscular HGB Conc 28.8 g/dl (32-36); Mean Corpuscular Hemoglobin 24.2 pg (26-34); Mean Corpuscular Volume 84.1 fl (80-100); Platelet Count Result 218 k/mm3 (150-375); Red Blood Count 3.39 M/mm3 (4.2-5.4); White Blood Count 5.7 K/mm3 (4.5-10.0)
[2025-05-30 05:12] LABS: Alanine Aminotransferase 12 U/L (6-35); Albumin Level 3.8 g/dL (3.5-5.1); Alkaline Phosphatase 127 U/L (38-126); Anion Gap 8 mmol/L (4-12); Aspartate Amino Transferase 22 U/L (14-36); Bilirubin,Total 0.5 mg/dL (0.2-1.3); Blood Urea Nitrogen 27 mg/dL (7-17); Calcium 8.6 mg/dL (8.4-10.2); Carbon Dioxide 22 mmol/L (22-30); Chloride 106 mmol/L (98-107); Estimated CRCL calculation 18 ml/min; Estimated Glomerular Filt Rate 30; Glucose 105 mg/dL (65-110); Magnesium 2.1 mg/dL (1.6-2.3); Potassium 4.2 mmol/L (3.4-5.0); Sodium 136 mmol/L (137-145); Total Protein 6.9 g/dL (6.3-8.2)
[2025-05-30] MEDS: LEVOTHYROXINE SODIUM 100 MCG TABLET PO (06:25)
--- NOTE | 2025-05-30 08:38 | P.PNCA_ITS ---
Progress Note: A&P Assessment and Plan (1) Hypertension: Code(s): I10 - Essential (primary) hypertension Status: Acute Assessment and Plan: Low normal. Stop Amlodipine, Hydralazine, and IV Lasix. Monitor. (2) Hyperlipidemia: Code(s): E78.5 - Hyperlipidemia, unspecified Status: Acute Assessment and Plan: On Atorvastatin. (3) Atrial fibrillation: Code(s): I48.91 - Unspecified atrial fibrillation Status: Acute Assessment and Plan: Her symptoms probably due to anemia causing faster HR in atrial fib and di astolic heart failure. In atrial fibrillation. [id number] 3. On Eliquis. Rate is mildly fast at 100 bpm. In past, she did not tolerate Metoprolol due to bradycardia. 05/29/25 Started low dose Metoprolol Tarate 12.5 mg BID. 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 Hold Eliquis in light of bleeding and acutely anemic. Monitor Hb. Discuss Watchman device and she would be a candidate for it to prevent cardioembolism not on anticoagulation given hemorrhoid bleeding and does not want surgery for it. This would be an outpatient referral. In meantime start Aspirin EC 325 mg daily to decrease her risk of cardioembolism off Eliquis. (4) Diastolic dysfunction: Code(s): I51.89 - Other ill-defined heart diseases Status: Acute Assessment and Plan: On Lasix 20 mg IV daily and on Spironolactone 25 mg daily. Stop Lasix IV. She may need low dose Lasix 20 mg PO daily but monitor first. Subjective Date/time seen: 05/30/25 08:38 Interval history: States breathing is OK this morning. No chest pain. Exam Const: General: cooperative, healthy appearing and comfortable Orientation/consciousness: oriented to person, oriented to place and oriented to time Resp: Auscultation: clear to auscultation bilaterally, no crackles, no rales, no rhonchi and no wheezes Cardio: Rate: regular rate Rhythm: abnormal rhythm Heart sounds: no murmurs Peripheral pulses: dorsalis pedis present Neuro: General: oriented to person, oriented to place and oriented to time Extrem: Right lower extremity: no edema Left lower extremity: no edema Objective Data Vital Signs Vital Signs: Vital Signs - 24 hr 05/29/25 08:58 05/29/25 12:00 05/29/25 16:00 Temperature Pulse Rate 108 H 118 H 82 Respiratory Rate Blood Pressure Pulse Oximetry Oxygen Delivery Oxygen Flow Rate 05/29/25 16:16 05/29/25 17:59 05/29/25 20:00 Temperature 98.2 F 98.2 F Pulse Rate 96 77 68 Respiratory Rate 18 20 Blood Pressure 117/52 L 129/63 Pulse Oximetry 100 98 Oxygen Delivery Oxygen Flow Rate 05/29/25 20:00 05/29/25 20:00 05/29/25 21:06 Temperature Pulse Rate 74 81 Respiratory Rate Blood Pressure Pulse Oximetry 98 Oxygen Delivery Nasal Cannula Oxygen Flow Rate 2 05/29/25 22:00 05/30/25 00:00 05/30/25 00:00 Temperature 98.4 F Pulse Rate 75 84 Respiratory Rate 16 Blood Pressure 109/60 Pulse Oximetry 98 99 Oxygen Delivery Nasal Cannula Oxygen Flow Rate 2 05/30/25 00:00 05/30/25 01:53 05/30/25 04:00 Temperature Pulse Rate 77 70 Respiratory Rate Blood Pressure Pulse Oximetry 100 Oxygen Delivery Room Air Oxygen Flow Rate 05/30/25 04:00 05/30/25 04:00 05/30/25 06:00 Temperature 98.4 F Pulse Rate 73 63 76 Respiratory Rate 18 Blood Pressure 99/40 L Pulse Oximetry 100 Oxygen Delivery Oxygen Flow Rate Intake/Output Intake/Output: Intake & Output 05/27/25 05/28/25 05/29/25 05/30/25 23:59 23:59 23:59 23:59 Intake Total 930 120 Output Total 75 250 150 Balance -75 680 -30 Meds/Results Medications: Active Medications Generic Name Dose Route Start Last Admin Trade Name Freq PRN Reason Stop Dose Admin Acetaminophen 650 mg 05/29/25 08:55 Acetaminophen 325 Mg Tablet PO Q6H PRN Mild Pain (1-3) or Fever Atorvastatin Calcium 80 mg 05/29/25 09:00 05/29/25 08:57 Atorvastatin 40 Mg Tablet PO 80 mg DAILY ORLY Administration Dextrose 12.5 gm 05/29/25 02:40 Dextrose 50% 25 Gm/50 Ml Syringe IV PUSH PRN PRN Hypoglycemia Protocol Docusate Sodium 100 mg 05/29/25 09:00 05/29/25 21:06 Docusate Sodium 100 Mg Capsule PO 100 mg Q12HR ORLY Administration Empagliflozin 10 mg 05/29/25 09:00 05/29/25 08:57 Empagliflozin 10 Mg Tablet PO 10 mg DAILY ORLY Administration Famotidine 20 mg 05/29/25 09:00 05/29/25 08:57 Famotidine 20 Mg Tablet PO 20 mg DAILY ORLY Administration Fluoxetine HCl 20 mg 05/29/25 09:00 05/29/25 08:57 Fluoxetine Hcl 20 Mg Capsule PO 20 mg DAILY ORLY Administration Glucagon 1 mg 05/29/25 02:40 Glucagon For Inj 1 Mg Vial IM PRN PRN Hypoglycemia Protocol Glucose 15 gm 05/29/25 02:40 Glucose Oral Gel 15 Gm Of Glucse In 37.5 Gm Tube PO PRN PRN Hypoglycemia Protocol Dextrose 1,000 mls @ 100 mls/hr 05/29/25 02:40 Dextrose 5% 1,000 Ml IVPB PRN PRN Hypoglycemia Protocol Insulin Aspart 2 - 5 units 05/29/25 08:00 05/29/25 16:33 Insulin Aspart (*Bkc) 100 Units/Ml SUB-Q 2 units TIDWM ORLY Administration Protocol Levothyroxine Sodium 100 mcg 05/29/25 06:30 05/30/25 06:25 Levothyroxine Sodium 100 Mcg Tablet PO 100 mcg DAILY@0630 ORLY Administration Metoprolol Tartrate 12.5 mg 05/29/25 09:00 05/29/25 21:06 Metoprolol Tartrate 12.5 Mg Tablet PO 12.5 mg Q12HR ORLY Administration Spironolactone 25 mg 05/29/25 09:00 05/29/25 08:57 Spironolactone 25 Mg Tablet PO 25 mg DAILY ORLY Administration Radiology Results: ITS Impressions Chest X-Ray 05/28/25 19:07 Impression: 1: Persistent diffuse bilateral airspace disease likely superimposed on chronic interstitial lung disease. Differential diagnosis includes chronic edema and atypical pneumonia. Chest CT 05/28/25 21:39 IMPRESSION: 1. Cardiomegaly with probable mild interstitial edema. 2: Gallstones. 3: Indeterminate 1.8 cm left renal mass. Correlation with contrast-enhanced CT or MRI recommended for further evaluation. 4: Nonobstructing bilateral nephrolithiasis. Labs Labs: Laboratory Results - last 24 hr 05/29/25 05/29/25 05/29/25 08:08 11:32 16:18 WBC RBC Hgb Hct MCV MCH MCHC RDW Plt Count MPV Sodium Potassium Chloride Carbon Dioxide Anion Gap BUN Creatinine Estim Creat Clear Calc Estimated GFR Glucose POC Capillary Glucose 85 137 H 226 H Calcium Magnesium Total Bilirubin AST ALT Alkaline Phosphatase Total Protein Albumin 05/29/25 05/30/25 05/30/25 20:01 04:11 07:20 WBC 5.7 RBC 3.39 L Hgb 8.2 L Hct 28.5 L MCV 84.1 MCH 24.2 L MCHC 28.8 L RDW 14.5 Plt Count 218 MPV 9.7 Sodium 136 L Potassium 4.2 Chloride 106 Carbon Dioxide 22 Anion Gap 8 BUN 27 H Creatinine 1.62 H Estim Creat Clear Calc 18 Estimated GFR 30 L Glucose 105 POC Capillary Glucose 146 H 91 Calcium 8.6 Magnesium 2.1 Total Bilirubin 0.5 AST 22 ALT 12 Alkaline Phosphatase 127 H Total Protein 6.9 Albumin 3.8
--- NOTE | 2025-05-30 08:58 | P.PNIM_ITS ---
Progress Note: A&P Assessment and Plan (1) CHF (congestive heart failure): Qualifiers: Heart failure chronicity: acute on chronic Heart failure type: right- sided Qualified Code(s): I50.813 - Acute on chronic right heart failure Code(s): I50.9 - Heart failure, unspecified Status: Acute Assessment and Plan: Acute on chronic diastolic heart failure last echocardiogram October 2024 with diastolic dysfunction and LVEF 65-70% showing atrial fibrillation and moderate pulmonary hypertension pressure 54 mm Hg. * cardiology consulted: see Dr. Gan O/P * IV Lasix 20 mg IVP d/C off oxygen and bump in Cr * recommend Lasix 20mg daily at discharge * monitor renal function during diuresis * EKG: Atrial fibrillation with rapid ventricular rate * ct: Cardiomegaly with mild interstitial edema * Continues spironolactone * Daily weight. * Fall risk assessment. (2) Atrial fibrillation with RVR: Code(s): I48.91 - Unspecified atrial fibrillation Status: Acute Assessment and Plan: Patient with history of atrial fibrillation presented in our ER CHF exacerbation * Cardiology consulted * Cardiology recommended attempting metoprolol however last time patient received metoprolol she went bradycardic, there is concern that she may Roney/tachy syndrome and may need pacemaker cardiology also spoke to daughter Watchman to to her anemia * Currently holding Eliquis * added Aspirin 325 * Continuous cardiac monitoring * HR still controlled no episodes of bradycardia overnight (3) Acute hypoxic respiratory failure: Code(s): J96.01 - Acute respiratory failure with hypoxia Status: Acute Assessment and Plan: Patient presented with acute respiratory failure with hypoxia with crying 2 L supplemental oxygen to maintain 92% patient currently does not any history of wearing oxygen at home please secondary to CHF exacerbation and AFib with RVR. * Patient requiring 3L unable to wean will desaturate to mid 80's * May need home O2 walk study prior to discharge (4) Melena: Code(s): K92.1 - Melena Status: Acute Assessment and Plan: Patient with history of hemorrhoids but does not want any surgical intervention * Will continue to monitor H&H * holding Eliquis (5) Acute on chronic anemia: Code(s): D64.9 - Anemia, unspecified Status: Acute Assessment and Plan: * Trend H&H * Transfuse if HGB under 7 * Monitor for any concern for GIB (6) Hypothyroidism: Code(s): E03.9 - Hypothyroidism, unspecified Status: Acute Assessment and Plan: * Continue levothyroxine * TSH within WNL (7) Type 2 diabetes mellitus: Code(s): E11.9 - Type 2 diabetes mellitus without complications Status: Acute Assessment and Plan: * Will patient's glimepiride and metformin * Accu-Cheks a.c. HS * SSI low-dose * Diabetic diet * Hypoglycemic protocol (8) Chronic anticoagulation: Code(s): Z79.01 - intermediate card tender (current) use of anticoagulants Status: Acute Assessment and Plan: Patient on Eliquis 2.5 mg chronically for atrial fibrillation * Holding Eliquis at this time per Cardiology recommendation * added Aspirin 325 for coverage Plan Code status: DNR/DNI DVT prophylaxis: SCDs Stress ulcer prophylaxis: NA PT/OT notes: Ambulatory Disposition: Patient initially admitted to medical unit however I have transferred to IMU for close cardiac monitoring due to the initiation of her metoprolol in some concern for possible bradycardia with Roney/tachy syndrome need for pacemaker. Time Spent With Patient Time with patient: 25 - 35 minutes Subjective Date/time seen: 05/30/25 08:58 Interval history: Patient is 84-year-old female admitted for acute respiratory failure with hypoxia secondary to CHF exacerbation AFib RVR. 05/30/2025: Assumed Care Patient with no acute distress or complaints still requiring oxygen desaturation to mid 80's when oxygen removed. No Bracycardia overnight. Patient denied CP, N/V but does have moderate productive cough. Review of Systems Review of Systems: Ten review of systems was noted with pertinent positives and negatives as per HPI. 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 His chronic urinary frequency but denies dysuria. All systems reviewed & are unremarkable except as noted in HPI and below Exam Narrative: Weight 53.9 kg BMI 21.7 Const: General: comfortable and no acute distress Other: Frail, elderly female up in chair HENMT: Mouth: Yes moist mucous membranes Other: Head is normocephalic atraumatic, mucous membranes are tacky, no oral pharyngeal erythema, edentulous upper and lower jaw Eyes: General: appearance normal, both eyes and all related structures Other: Pupils are equal and reactive with bilateral lens implants noted, mild conjunctival pallor, no scleral icterus Neck: Neck: supple and no JVD Other: No JVD, no lymphadenopathy, loss of cervical lordosis Resp: Effort & Inspection: normal respiratory effort Auscultation: diminished lung sounds bilateral Other: Clear to auscultation bilaterally, no increased work of breathing Cardio: Other: Irregularly irregular GI: Auscultation: normal bowel sounds Other: Soft, nontender, nondistended, positive bowel sounds : Other: Depends in place Back/Spine/Pelvis: Other: Thoracic kyphosis noted Skin: General skin exam: normal color and no rashes or lesions noted Wounds: no wounds Other: Mild pallor, non jaundice, warm to touch Neuro: Speech: normal speech Motor exam (neuro): 5/5 motor strength present throughout Sensory Exam: normal sensation Other: Alert oriented to person, place, year and name of the current president, she has mild left facial droop, speech is clear Extrem: Other: No clubbing, cyanosis or edema Psych: Mental Status: mental status grossly normal Affect: normal affect Other: Flat affect, cooperative, judgment and insight intact Objective Data Vital Signs Vital Signs: Vital Signs - 24 hr 05/29/25 12:00 05/29/25 16:00 05/29/25 16:16 Temperature 98.2 F Pulse Rate 118 H 82 96 Respiratory Rate 18 Blood Pressure 117/52 L Pulse Oximetry 100 Oxygen Delivery Oxygen Flow Rate 05/29/25 17:59 05/29/25 20:00 05/29/25 20:00 Temperature 98.2 F Pulse Rate 77 68 Respiratory Rate 20 Blood Pressure 129/63 Pulse Oximetry 98 98 Oxygen Delivery Nasal Cannula Oxygen Flow Rate 2 05/29/25 20:00 05/29/25 21:06 05/29/25 22:00 Temperature Pulse Rate 74 81 75 Respiratory Rate Blood Pressure Pulse Oximetry Oxygen Delivery Oxygen Flow Rate 05/30/25 00:00 05/30/25 00:00 05/30/25 00:00 Temperature 98.4 F Pulse Rate 84 77 Respiratory Rate 16 Blood Pressure 109/60 Pulse Oximetry 98 99 Oxygen Delivery Nasal Cannula Oxygen Flow Rate 2 05/30/25 01:53 05/30/25 04:00 05/30/25 04:00 Temperature Pulse Rate 70 73 Respiratory Rate Blood Pressure Pulse Oximetry 100 Oxygen Delivery Room Air Oxygen Flow Rate 05/30/25 04:00 05/30/25 06:00 05/30/25 08:00 Temperature 98.4 F 98.4 F Pulse Rate 63 76 94 Respiratory Rate 18 16 Blood Pressure 99/40 L 161/86 H Pulse Oximetry 100 92 Oxygen Delivery Oxygen Flow Rate Intake/Output Intake/Output: Intake & Output 05/27/25 05/28/25 05/29/25 05/30/25 23:59 23:59 23:59 23:59 Intake Total 930 120 Output Total 75 250 150 Balance -75 680 -30 Meds/Results Medications: Active Medications Generic Name Dose Route Start Last Admin Trade Name Freq PRN Reason Stop Dose Admin Acetaminophen 650 mg 05/29/25 08:55 Acetaminophen 325 Mg Tablet PO Q6H PRN Mild Pain (1-3) or Fever Aspirin 325 mg 05/30/25 09:00 Aspirin 325 Mg Enteric Tablet PO QAM ORLY Atorvastatin Calcium 80 mg 05/29/25 09:00 05/29/25 08:57 Atorvastatin 40 Mg Tablet PO 80 mg DAILY ORLY Administration Dextrose 12.5 gm 05/29/25 02:40 Dextrose 50% 25 Gm/50 Ml Syringe IV PUSH PRN PRN Hypoglycemia Protocol Docusate Sodium 100 mg 05/29/25 09:00 05/29/25 21:06 Docusate Sodium 100 Mg Capsule PO 100 mg Q12HR ORLY Administration Empagliflozin 10 mg 05/29/25 09:00 05/29/25 08:57 Empagliflozin 10 Mg Tablet PO 10 mg DAILY ORLY Administration Famotidine 20 mg 05/29/25 09:00 05/29/25 08:57 Famotidine 20 Mg Tablet PO 20 mg DAILY ORLY Administration Fluoxetine HCl 20 mg 05/29/25 09:00 05/29/25 08:57 Fluoxetine Hcl 20 Mg Capsule PO 20 mg DAILY ORLY Administration Glucagon 1 mg 05/29/25 02:40 Glucagon For Inj 1 Mg Vial IM PRN PRN Hypoglycemia Protocol Glucose 15 gm 05/29/25 02:40 Glucose Oral Gel 15 Gm Of Glucse In 37.5 Gm Tube PO PRN PRN Hypoglycemia Protocol Dextrose 1,000 mls @ 100 mls/hr 05/29/25 02:40 Dextrose 5% 1,000 Ml IVPB PRN PRN Hypoglycemia Protocol Insulin Aspart 2 - 5 units 05/29/25 08:00 05/30/25 08:57 Insulin Aspart (*Bkc) 100 Units/Ml SUB-Q Not Given TIDWM ORLY Protocol Levothyroxine Sodium 100 mcg 05/29/25 06:30 05/30/25 06:25 Levothyroxine Sodium 100 Mcg Tablet PO 100 mcg DAILY@0630 ORLY Administration Metoprolol Tartrate 12.5 mg 05/29/25 09:00 05/29/25 21:06 Metoprolol Tartrate 12.5 Mg Tablet PO 12.5 mg Q12HR ORLY Administration Spironolactone 25 mg 05/29/25 09:00 05/29/25 08:57 Spironolactone 25 Mg Tablet PO 25 mg DAILY ORLY Administration Radiology Results: ITS Impressions Chest X-Ray 05/28/25 19:07 Impression: 1: Persistent diffuse bilateral airspace disease likely superimposed on chronic interstitial lung disease. Differential diagnosis includes chronic edema and atypical pneumonia. Chest CT 05/28/25 21:39 IMPRESSION: 1. Cardiomegaly with probable mild interstitial edema. 2: Gallstones. 3: Indeterminate 1.8 cm left renal mass. Correlation with contrast-enhanced CT or MRI recommended for further evaluation. 4: Nonobstructing bilateral nephrolithiasis. Labs Labs: Laboratory Results - last 24 hr 05/29/25 05/29/25 05/29/25 11:32 16:18 20:01 WBC RBC Hgb Hct MCV MCH MCHC RDW Plt Count MPV Sodium Potassium Chloride Carbon Dioxide Anion Gap BUN Creatinine Estim Creat Clear Calc Estimated GFR Glucose POC Capillary Glucose 137 H 226 H 146 H Calcium Magnesium Total Bilirubin AST ALT Alkaline Phosphatase Total Protein Albumin 05/30/25 05/30/25 04:11 07:20 WBC 5.7 RBC 3.39 L Hgb 8.2 L Hct 28.5 L MCV 84.1 MCH 24.2 L MCHC 28.8 L RDW 14.5 Plt Count 218 MPV 9.7 Sodium 136 L Potassium 4.2 Chloride 106 Carbon Dioxide 22 Anion Gap 8 BUN 27 H Creatinine 1.62 H Estim Creat Clear Calc 18 Estimated GFR 30 L Glucose 105 POC Capillary Glucose 91 Calcium 8.6 Magnesium 2.1 Total Bilirubin 0.5 AST 22 ALT 12 Alkaline Phosphatase 127 H Total Protein 6.9 Albumin 3.8 Quality VTE Prophylaxis VTE prophylaxis: mechanical ordered -Patient's previous records reviewed on admission -ER notes reviewed in detail on admission -discussed all findings and current treatment plan with patient/Family/POA -Consultations reviewed for recommendations -Patient's disposition for safe discharge discussed with case filler -radiology imaging, EKG and test results personally reviewed and interpreted unless otherwise specified Dictation performed by [employer] direct speech recognition software, therefore family partner variants and typographical errors may occur. Hospitalist MIPS Advance Care Plan I have confirmed that the patient's Advanced Care Plan is present, code status is documented, or surrogate decision maker is listed in patient medical record.: Yes Medication Reconciliation I have utilized all available resources to obtain, update and review the patients current medications (includes all prescriptions, OTC, herbals, cannabis, and nutritional supplements).: Yes The patient is not eligible for med reconciliation; the patient is in a emergent medical situation where delaying treatment would jeopardize the patients health.: No
[2025-05-30] MEDS: EMPAGLIFLOZIN 10 MG TABLET PO (09:05)
[2025-05-30] MEDS: ATORVASTATIN 40 MG TABLET 80 MG PO (09:05)
[2025-05-30] MEDS: ASPIRIN 325 MG ENTERIC TABLET PO (09:05)
[2025-05-30] MEDS: DOCUSATE SODIUM 100 MG CAPSULE PO ×2 (09:05→20:11)
[2025-05-30] MEDS: METOPROLOL TARTRATE 12.5 MG TABLET PO ×2 (09:06→20:11)
[2025-05-30] MEDS: FAMOTIDINE 20 MG TABLET PO (09:06)
[2025-05-30] MEDS: SPIRONOLACTONE 25 MG TABLET PO (09:06)
[2025-05-30] MEDS: guaiFENesin 12 HR 600 MG TABCR PO (20:11)
[2025-05-31] VITALS (17 sets, daily range): BP systolic 106–121; BP diastolic 43–70; PULSE 54–79; RESP 16–18; TEMP 36.4–37.2; O2SAT 94–100
[2025-05-31 04:57] LABS: Hematocrit 29.7 % (37.0-47.0); Hemoglobin 8.7 g/dL (12.0-15.0); Mean Corpuscular HGB Conc 29.3 g/dl (32-36); Mean Corpuscular Hemoglobin 24.6 pg (26-34); Mean Corpuscular Volume 83.9 fl (80-100); Platelet Count Result 224 k/mm3 (150-375); Red Blood Count 3.54 M/mm3 (4.2-5.4); White Blood Count 5.9 K/mm3 (4.5-10.0)
[2025-05-31 05:12] LABS: Alanine Aminotransferase 11 U/L (6-35); Albumin Level 3.6 g/dL (3.5-5.1); Alkaline Phosphatase 120 U/L (38-126); Anion Gap 9 mmol/L (4-12); Aspartate Amino Transferase 20 U/L (14-36); Bilirubin,Total 0.5 mg/dL (0.2-1.3); Blood Urea Nitrogen 29 mg/dL (7-17); Calcium 8.5 mg/dL (8.4-10.2); Carbon Dioxide 22 mmol/L (22-30); Chloride 105 mmol/L (98-107); Estimated CRCL calculation 20 ml/min; Estimated Glomerular Filt Rate 33; Glucose 93 mg/dL (65-110); Magnesium 2.2 mg/dL (1.6-2.3); Potassium 4.5 mmol/L (3.4-5.0); Sodium 136 mmol/L (137-145); Total Protein 6.1 g/dL (6.3-8.2)
[2025-05-31] MEDS: LEVOTHYROXINE SODIUM 100 MCG TABLET PO (06:14)
--- NOTE | 2025-05-31 08:06 | P.PNCA_ITS ---
Progress Note: A&P Assessment and Plan (1) Hypertension: Code(s): I10 - Essential (primary) hypertension Status: Acute Assessment and Plan: Stable. Stopped Amlodipine, Hydralazine, and IV Lasix. Monitor. (2) Hyperlipidemia: Code(s): E78.5 - Hyperlipidemia, unspecified Status: Acute Assessment and Plan: On Atorvastatin. (3) Atrial fibrillation: Code(s): I48.91 - Unspecified atrial fibrillation Status: Acute Assessment and Plan: Her symptoms probably due to anemia causing faster HR in atrial fib and camille stolic heart failure. In atrial fibrillation. [id number] 3. On Eliquis. Rate is mildly fast at 100 bpm. In past, she did not tolerate Metoprolol due to bradycardia. 05/29/25 Started low dose Metoprolol Tarate 12.5 mg BID. 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 HR is controlled with slight pauses up to 1.8 seconds which is OK. Decrease M etoprolol 6.25 mg BID. On Aspirin 325 mg daily. Hold Eliquis in light of bleeding and acutely anemic. Monitoring Hb and stable at 8.7 today. Discuss Watchman device and she would be a candidate for it to prevent cardioembolism not on anticoagulation given hemorrhoid bleeding and does not want surgery for it. This would be an outpatient referral. If by tomorrow, HR remains stable, then she may be discharged home from cardiology standpoint. (4) Diastolic dysfunction: Code(s): I51.89 - Other ill-defined heart diseases Status: Acute Assessment and Plan: Euvolemic. On Spironolactone 25 mg daily. Subjective Date/time seen: 05/31/25 08:06 Interval history: No chest pain or sob. Exam Const: General: cooperative, healthy appearing and comfortable Orientation/consciousness: oriented to person, oriented to place and oriented to time Resp: Auscultation: clear to auscultation bilaterally, no crackles, no rales, no rhonchi and no wheezes Cardio: Rate: regular rate Rhythm: abnormal rhythm Heart sounds: no murmurs Peripheral pulses: dorsalis pedis present Neuro: General: oriented to person, oriented to place and oriented to time Extrem: Right lower extremity: no edema Left lower extremity: no edema Objective Data Vital Signs Vital Signs: Vital Signs - 24 hr 05/30/25 09:06 05/30/25 10:00 05/30/25 12:00 Temperature 98.3 F Pulse Rate 76 79 86 Respiratory Rate 22 H Blood Pressure 138/82 Pulse Oximetry 98 Oxygen Delivery Oxygen Flow Rate 05/30/25 12:00 05/30/25 12:00 05/30/25 14:00 Temperature Pulse Rate 81 71 Respiratory Rate Blood Pressure Pulse Oximetry 98 Oxygen Delivery Nasal Cannula Oxygen Flow Rate 2 05/30/25 16:00 05/30/25 16:00 05/30/25 16:00 Temperature 98.3 F Pulse Rate 69 65 Respiratory Rate 20 Blood Pressure 108/73 Pulse Oximetry 89 L 98 Oxygen Delivery Nasal Cannula Oxygen Flow Rate 2 05/30/25 18:00 05/30/25 20:00 05/30/25 20:00 Temperature 98.4 F Pulse Rate 75 71 Respiratory Rate 20 Blood Pressure 108/59 L Pulse Oximetry 100 99 Oxygen Delivery Nasal Cannula Oxygen Flow Rate 2 05/30/25 20:00 05/30/25 20:11 05/30/25 21:19 Temperature Pulse Rate 78 73 Respiratory Rate Blood Pressure Pulse Oximetry 96 Oxygen Delivery Nasal Cannula Oxygen Flow Rate 2 05/30/25 22:00 05/30/25 23:32 05/30/25 23:36 Temperature 97.5 F L Pulse Rate 70 78 Respiratory Rate 16 Blood Pressure 105/62 Pulse Oximetry 100 100 Oxygen Delivery Nasal Cannula Oxygen Flow Rate 2 05/31/25 00:00 05/31/25 02:00 05/31/25 04:00 Temperature Pulse Rate 69 72 Respiratory Rate Blood Pressure Pulse Oximetry 100 Oxygen Delivery Nasal Cannula Oxygen Flow Rate 2 05/31/25 04:00 05/31/25 04:00 05/31/25 06:00 Temperature 97.7 F Pulse Rate 79 67 72 Respiratory Rate 16 Blood Pressure 121/70 Pulse Oximetry 100 Oxygen Delivery Oxygen Flow Rate 05/31/25 07:56 Temperature 98.2 F Pulse Rate 54 L Respiratory Rate 16 Blood Pressure 118/56 L Pulse Oximetry 97 Oxygen Delivery Oxygen Flow Rate Intake/Output Intake/Output: Intake & Output 05/28/25 05/29/25 05/30/25 05/31/25 23:59 23:59 23:59 23:59 Intake Total 930 1520 200 Output Total 75 250 1550 300 Balance -75 680 -30 -100 Meds/Results Medications: Active Medications Generic Name Dose Route Start Last Admin Trade Name Freq PRN Reason Stop Dose Admin Acetaminophen 650 mg 05/29/25 08:55 Acetaminophen 325 Mg Tablet PO Q6H PRN Mild Pain (1-3) or Fever Aspirin 325 mg 05/30/25 09:00 05/30/25 09:05 Aspirin 325 Mg Enteric Tablet PO 325 mg QAM ORLY Administration Atorvastatin Calcium 80 mg 05/29/25 09:00 05/30/25 09:05 Atorvastatin 40 Mg Tablet PO 80 mg DAILY ORLY Administration Dextrose 12.5 gm 05/29/25 02:40 Dextrose 50% 25 Gm/50 Ml Syringe IV PUSH PRN PRN Hypoglycemia Protocol Docusate Sodium 100 mg 05/29/25 09:00 05/30/25 20:11 Docusate Sodium 100 Mg Capsule PO 100 mg Q12HR ORLY Administration Empagliflozin 10 mg 05/29/25 09:00 05/30/25 09:05 Empagliflozin 10 Mg Tablet PO 10 mg DAILY ORLY Administration Famotidine 20 mg 05/29/25 09:00 05/30/25 09:06 Famotidine 20 Mg Tablet PO 20 mg DAILY ORLY Administration Fluoxetine HCl 20 mg 05/29/25 09:00 05/30/25 09:06 Fluoxetine Hcl 20 Mg Capsule PO 20 mg DAILY ORLY Administration Glucagon 1 mg 05/29/25 02:40 Glucagon For Inj 1 Mg Vial IM PRN PRN Hypoglycemia Protocol Glucose 15 gm 05/29/25 02:40 Glucose Oral Gel 15 Gm Of Glucse In 37.5 Gm Tube PO PRN PRN Hypoglycemia Protocol Guaifenesin 600 mg 05/30/25 21:00 05/30/25 20:11 Guaifenesin 12 Hr 600 Mg Tabcr PO 600 mg Q12HR ORLY Administration Dextrose 1,000 mls @ 100 mls/hr 05/29/25 02:40 Dextrose 5% 1,000 Ml IVPB PRN PRN Hypoglycemia Protocol Insulin Aspart 2 - 5 units 05/29/25 08:00 05/30/25 18:17 Insulin Aspart (*Bkc) 100 Units/Ml SUB-Q Not Given TIDWM ORLY Protocol Levothyroxine Sodium 100 mcg 05/29/25 06:30 05/31/25 06:14 Levothyroxine Sodium 100 Mcg Tablet PO 100 mcg DAILY@0630 ORLY Administration Metoprolol Tartrate 12.5 mg 05/29/25 09:00 05/30/25 20:11 Metoprolol Tartrate 12.5 Mg Tablet PO 12.5 mg Q12HR ORLY Administration Spironolactone 25 mg 05/29/25 09:00 05/30/25 09:06 Spironolactone 25 Mg Tablet PO 25 mg DAILY ORLY Administration Radiology Results: ITS Impressions Chest X-Ray 05/28/25 19:07 Impression: 1: Persistent diffuse bilateral airspace disease likely superimposed on chronic interstitial lung disease. Differential diagnosis includes chronic edema and atypical pneumonia. Chest CT 05/28/25 21:39 IMPRESSION: 1. Cardiomegaly with probable mild interstitial edema. 2: Gallstones. 3: Indeterminate 1.8 cm left renal mass. Correlation with contrast-enhanced CT or MRI recommended for further evaluation. 4: Nonobstructing bilateral nephrolithiasis. Labs Labs: Laboratory Results - last 24 hr 05/30/25 05/30/25 05/30/25 07:20 11:54 18:10 WBC RBC Hgb Hct MCV MCH MCHC RDW Plt Count MPV Sodium Potassium Chloride Carbon Dioxide Anion Gap BUN Creatinine Estim Creat Clear Calc Estimated GFR Glucose POC Capillary Glucose 91 89 196 H Calcium Magnesium Total Bilirubin AST ALT Alkaline Phosphatase Total Protein Albumin 05/30/25 05/31/25 05/31/25 20:13 04:35 07:21 WBC 5.9 RBC 3.54 L Hgb 8.7 L Hct 29.7 L MCV 83.9 MCH 24.6 L MCHC 29.3 L RDW 14.3 Plt Count 224 MPV 9.7 Sodium 136 L Potassium 4.5 Chloride 105 Carbon Dioxide 22 Anion Gap 9 BUN 29 H Creatinine 1.52 H Estim Creat Clear Calc 20 Estimated GFR 33 L Glucose 93 POC Capillary Glucose 198 H 92 Calcium 8.5 Magnesium 2.2 Total Bilirubin 0.5 AST 20 ALT 11 Alkaline Phosphatase 120 Total Protein 6.1 L Albumin 3.6
[2025-05-31] MEDS: DOCUSATE SODIUM 100 MG CAPSULE PO ×2 (09:07→20:36)
[2025-05-31] MEDS: SPIRONOLACTONE 25 MG TABLET PO (09:07)
[2025-05-31] MEDS: guaiFENesin 12 HR 600 MG TABCR PO ×2 (09:07→20:36)
[2025-05-31] MEDS: ASPIRIN 325 MG ENTERIC TABLET PO (09:07)
[2025-05-31] MEDS: FAMOTIDINE 20 MG TABLET PO (09:07)
[2025-05-31] MEDS: ATORVASTATIN 40 MG TABLET 80 MG PO (09:07)
[2025-05-31] MEDS: METOPROLOL TARTRATE 6.25 MG TABLET PO ×2 (09:07→20:36)
[2025-05-31] MEDS: EMPAGLIFLOZIN 10 MG TABLET PO (09:07)
--- NOTE | 2025-05-31 09:39 | P.PNIM_ITS ---
Progress Note: A&P Assessment and Plan (1) Atrial fibrillation with RVR: Code(s): I48.91 - Unspecified atrial fibrillation Status: Acute Assessment and Plan: Patient with history of atrial fibrillation presented in our ER CHF exacerbation * Cardiology consulted * Cardiology recommended attempting metoprolol however last time patient received metoprolol she went bradycardic, there is concern that she may [place] y/tachy syndrome and may need pacemaker cardiology also spoke to daughter Watchman to to her anemia * Currently holding Eliquis * added Aspirin 325 * Continuous cardiac monitoring * HR still controlled pauses 2-2.5 sec cardiology is ok with this and lowered her Metoprolol to 6.25 b.i.d. we will need to continue to monitor overnight (2) CHF (congestive heart failure): Qualifiers: Heart failure chronicity: acute on chronic Heart failure type: right- sided Qualified Code(s): I50.813 - Acute on chronic right heart failure Code(s): I50.9 - Heart failure, unspecified Status: Acute Assessment and Plan: Acute on chronic diastolic heart failure last echocardiogram October 2024 with diastolic dysfunction and LVEF 65-70% showing atrial fibrillation and moderate pulmonary hypertension pressure 54 mm Hg. * cardiology consulted: see Dr. Gan O/P * IV Lasix 20 mg IVP d/C off oxygen and bump in Cr * recommend Lasix 20mg daily at discharge * monitor renal function during diuresis * EKG: Atrial fibrillation with rapid ventricular rate * ct: Cardiomegaly with mild interstitial edema * Continues spironolactone * Daily weight. * Fall risk assessment. (3) Acute hypoxic respiratory failure: Code(s): J96.01 - Acute respiratory failure with hypoxia Status: Acute Assessment and Plan: Patient presented with acute respiratory failure with hypoxia with crying 2 L supplemental oxygen to maintain 92% patient currently does not any history of wearing oxygen at home please secondary to CHF exacerbation and AFib with RVR. * Patient requiring 3L unable to wean will desaturate to mid 80's * May need home O2 walk study prior to discharge (4) Melena: Code(s): K92.1 - Melena Status: Acute Assessment and Plan: Patient with history of hemorrhoids but does not want any surgical intervention * Will continue to monitor H&H * holding Eliquis (5) Acute on chronic anemia: Code(s): D64.9 - Anemia, unspecified Status: Acute Assessment and Plan: * Trend H&H * Transfuse if HGB under 7 * Monitor for any concern for GIB (6) Hypothyroidism: Code(s): E03.9 - Hypothyroidism, unspecified Status: Acute Assessment and Plan: * Continue levothyroxine * TSH within WNL (7) Type 2 diabetes mellitus: Code(s): E11.9 - Type 2 diabetes mellitus without complications Status: Acute Assessment and Plan: * Will patient's glimepiride and metformin * Accu-Cheks a.cKendra HS * SSI low-dose * Diabetic diet * Hypoglycemic protocol (8) Chronic anticoagulation: Code(s): Z79.01 - USP (current) use of anticoagulants Status: Acute Assessment and Plan: Patient on Eliquis 2.5 mg chronically for atrial fibrillation * Holding Eliquis at this time per Cardiology recommendation * added Aspirin 325 for coverage (9) Hypertension: Code(s): I10 - Essential (primary) hypertension Status: Acute Assessment and Plan: * cardiology stopped patient's hydralazine, Lasix and amlodipine * monitor BP per unit protocol * her metoprolol was reduced to 6.25 b.i.d. Plan Code status: DNR/DNI DVT prophylaxis: SCDs Stress ulcer prophylaxis: NA PT/OT notes: Ambulatory Disposition: Patient initially admitted to medical unit however I have transferred to IMU for close cardiac monitoring due to the initiation of her metoprolol in some concern for possible bradycardia with Roney/tachy syndrome need for pacemaker. Time Spent With Patient Time with patient: 25 - 35 minutes Subjective Date/time seen: 05/31/25 09:39 Interval history: Patient is 84-year-old female admitted for acute respiratory failure with hypoxia secondary to CHF exacerbation AFib RVR. 05/31/2025: Assumed Care Patient comfortable and in no acute distress, denied CP and SOB but still on supplemental oxygen patient understands she may need to go home oxygen. Patient with noted pauses 2 to 2.5 sec. Review of Systems Review of Systems: Ten review of systems was noted with pertinent positives and negatives as per HPI. 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 His chronic urinary frequency but denies dysuria. All systems reviewed & are unremarkable except as noted in HPI and below Exam Narrative: Weight 53.9 kg BMI 21.7 Const: General: comfortable and no acute distress Other: Frail, elderly female up in chair HENMT: Mouth: Yes moist mucous membranes Other: Head is normocephalic atraumatic, mucous membranes are tacky, no oral pharyngeal erythema, edentulous upper and lower jaw Eyes: General: appearance normal, both eyes and all related structures Other: Pupils are equal and reactive with bilateral lens implants noted, mild conjunctival pallor, no scleral icterus Neck: Neck: supple and no JVD Other: No JVD, no lymphadenopathy, loss of cervical lordosis Resp: Effort & Inspection: normal respiratory effort Auscultation: diminished lung sounds bilateral Other: Clear to auscultation bilaterally, no increased work of breathing Cardio: Other: Irregularly irregular GI: Auscultation: normal bowel sounds Other: Soft, nontender, nondistended, positive bowel sounds : Other: Depends in place Back/Spine/Pelvis: Other: Thoracic kyphosis noted Skin: General skin exam: normal color and no rashes or lesions noted Wounds: no wounds Other: Mild pallor, non jaundice, warm to touch Neuro: Speech: normal speech Motor exam (neuro): 5/5 motor strength present throughout Sensory Exam: normal sensation Other: Alert oriented to person, place, year and name of the current president, she has mild left facial droop, speech is clear Extrem: Other: No clubbing, cyanosis or edema Psych: Mental Status: mental status grossly normal Affect: normal affect Other: Flat affect, cooperative, judgment and insight intact Objective Data Vital Signs Vital Signs: Vital Signs - 24 hr 05/30/25 10:00 05/30/25 12:00 05/30/25 12:00 Temperature 98.3 F Pulse Rate 79 86 Respiratory Rate 22 H Blood Pressure 138/82 Pulse Oximetry 98 98 Oxygen Delivery Nasal Cannula Oxygen Flow Rate 2 05/30/25 12:00 05/30/25 14:00 05/30/25 16:00 Temperature 98.3 F Pulse Rate 81 71 69 Respiratory Rate 20 Blood Pressure 108/73 Pulse Oximetry 89 L Oxygen Delivery Oxygen Flow Rate 05/30/25 16:00 05/30/25 16:00 05/30/25 18:00 Temperature Pulse Rate 65 75 Respiratory Rate Blood Pressure Pulse Oximetry 98 Oxygen Delivery Nasal Cannula Oxygen Flow Rate 2 05/30/25 20:00 05/30/25 20:00 05/30/25 20:00 Temperature 98.4 F Pulse Rate 71 78 Respiratory Rate 20 Blood Pressure 108/59 L Pulse Oximetry 100 99 Oxygen Delivery Nasal Cannula Oxygen Flow Rate 2 05/30/25 20:11 05/30/25 21:19 05/30/25 22:00 Temperature Pulse Rate 73 70 Respiratory Rate Blood Pressure Pulse Oximetry 96 Oxygen Delivery Nasal Cannula Oxygen Flow Rate 2 05/30/25 23:32 05/30/25 23:36 05/31/25 00:00 Temperature 97.5 F L Pulse Rate 78 69 Respiratory Rate 16 Blood Pressure 105/62 Pulse Oximetry 100 100 Oxygen Delivery Nasal Cannula Oxygen Flow Rate 2 05/31/25 02:00 05/31/25 04:00 05/31/25 04:00 Temperature 97.7 F Pulse Rate 72 79 Respiratory Rate 16 Blood Pressure 121/70 Pulse Oximetry 100 100 Oxygen Delivery Nasal Cannula Oxygen Flow Rate 2 05/31/25 04:00 05/31/25 06:00 05/31/25 07:56 Temperature 98.2 F Pulse Rate 67 72 54 L Respiratory Rate 16 Blood Pressure 118/56 L Pulse Oximetry 97 Oxygen Delivery Oxygen Flow Rate 05/31/25 08:00 05/31/25 09:07 Temperature Pulse Rate 79 Respiratory Rate Blood Pressure Pulse Oximetry 97 Oxygen Delivery Nasal Cannula Oxygen Flow Rate 2 /Output Intake/Output: Intake & Output 05/28/25 05/29/25 05/30/25 05/31/25 23:59 23:59 23:59 23:59 Intake Total 930 1520 440 Output Total 75 250 1550 300 Balance -75 680 -30 140 Meds/Results Medications: Active Medications Generic Name Dose Route Start Last Admin Trade Name Freq PRN Reason Stop Dose Admin Acetaminophen 650 mg 05/29/25 08:55 Acetaminophen 325 Mg Tablet PO Q6H PRN Mild Pain (1-3) or Fever Aspirin 325 mg 05/30/25 09:00 05/31/25 09:07 Aspirin 325 Mg Enteric Tablet PO 325 mg QAM ORLY Administration Atorvastatin Calcium 80 mg 05/29/25 09:00 05/31/25 09:07 Atorvastatin 40 Mg Tablet PO 80 mg DAILY ORLY Administration Dextrose 12.5 gm 05/29/25 02:40 Dextrose 50% 25 Gm/50 Ml Syringe IV PUSH PRN PRN Hypoglycemia Protocol Docusate Sodium 100 mg 05/29/25 09:00 05/31/25 09:07 Docusate Sodium 100 Mg Capsule PO 100 mg Q12HR ORLY Administration Empagliflozin 10 mg 05/29/25 09:00 05/31/25 09:07 Empagliflozin 10 Mg Tablet PO 10 mg DAILY ORLY Administration Famotidine 20 mg 05/29/25 09:00 05/31/25 09:07 Famotidine 20 Mg Tablet PO 20 mg DAILY ORLY Administration Fluoxetine HCl 20 mg 05/29/25 09:00 05/31/25 09:07 Fluoxetine Hcl 20 Mg Capsule PO 20 mg DAILY ORLY Administration Glucagon 1 mg 05/29/25 02:40 Glucagon For Inj 1 Mg Vial IM PRN PRN Hypoglycemia Protocol Glucose 15 gm 05/29/25 02:40 Glucose Oral Gel 15 Gm Of Glucse In 37.5 Gm Tube PO PRN PRN Hypoglycemia Protocol Guaifenesin 600 mg 05/30/25 21:00 05/31/25 09:07 Guaifenesin 12 Hr 600 Mg Tabcr PO 600 mg Q12HR ORLY Administration Dextrose 1,000 mls @ 100 mls/hr 05/29/25 02:40 Dextrose 5% 1,000 Ml IVPB PRN PRN Hypoglycemia Protocol Insulin Aspart 2 - 5 units 05/29/25 08:00 05/31/25 08:11 Insulin Aspart (*Bkc) 100 Units/Ml SUB-Q Not Given TIDWM [facility] Protocol Levothyroxine Sodium 100 mcg 05/29/25 06:30 05/31/25 06:14 Levothyroxine Sodium 100 Mcg Tablet PO 100 mcg DAILY@0630 ORLY Administration Metoprolol Tartrate 6.25 mg 05/31/25 09:00 05/31/25 09:07 Metoprolol Tartrate 6.25 Mg Tablet PO 6.25 mg Q12HR ORLY Administration Spironolactone 25 mg 05/29/25 09:00 05/31/25 09:07 Spironolactone 25 Mg Tablet PO 25 mg DAILY ORLY Administration Radiology Results: ITS Impressions Chest X-Ray 05/28/25 19:07 Impression: 1: Persistent diffuse bilateral airspace disease likely superimposed on chronic interstitial lung disease. Differential diagnosis includes chronic edema and atypical pneumonia. Chest CT 05/28/25 21:39 IMPRESSION: 1. Cardiomegaly with probable mild interstitial edema. 2: Gallstones. 3: Indeterminate 1.8 cm left renal mass. Correlation with contrast-enhanced CT or MRI recommended for further evaluation. 4: Nonobstructing bilateral nephrolithiasis. Labs Labs: Laboratory Results - last 24 hr 05/30/25 05/30/25 05/30/25 11:54 18:10 20:13 WBC RBC Hgb Hct MCV MCH MCHC RDW Plt Count MPV Sodium Potassium Chloride Carbon Dioxide Anion Gap BUN Creatinine Estim Creat Clear Calc Estimated GFR Glucose POC Capillary Glucose 89 196 H 198 H Calcium Magnesium Total Bilirubin AST ALT Alkaline Phosphatase Total Protein Albumin 05/31/25 05/31/25 04:35 07:21 WBC 5.9 RBC 3.54 L Hgb 8.7 L Hct 29.7 L MCV 83.9 MCH 24.6 L MCHC 29.3 L RDW 14.3 Plt Count 224 MPV 9.7 Sodium 136 L Potassium 4.5 Chloride 105 Carbon Dioxide 22 Anion Gap 9 BUN 29 H Creatinine 1.52 H Estim Creat Clear Calc 20 Estimated GFR 33 L Glucose 93 POC Capillary Glucose 92 Calcium 8.5 Magnesium 2.2 Total Bilirubin 0.5 AST 20 ALT 11 Alkaline Phosphatase 120 Total Protein 6.1 L Albumin 3.6 Quality VTE Prophylaxis VTE prophylaxis: mechanical ordered -Patient's previous records reviewed on admission -ER notes reviewed in detail on admission -discussed all findings and current treatment plan with patient/Family/POA -Consultations reviewed for recommendations -Patient's disposition for safe discharge discussed with case management assistant -radiology imaging, EKG and test results I have personally reviewed and interpreted unless otherwise specified Dictation performed by [employer] direct speech recognition software, therefore title one teacher variants and typographical errors may occur. Hospitalist [facility] Advance Care Plan I have confirmed that the patient's Advanced Care Plan is present, code status is documented, or surrogate decision maker is listed in patient medical record.: Yes Medication Reconciliation I have utilized all available resources to obtain, update and review the patients current medications (includes all prescriptions, OTC, herbals, cannabis, and nutritional supplements).: Yes The patient is not eligible for med reconciliation; the patient is in a emergent medical situation where delaying treatment would jeopardize the patients health.: No
[2025-06-01] VITALS (13 sets, daily range): BP systolic 105–129; BP diastolic 57–69; PULSE 66–97; RESP 16–18; TEMP 36.4–36.8; O2SAT 90–100
[2025-06-01 04:16] LABS: Hematocrit 29.1 % (37.0-47.0); Hemoglobin 8.6 g/dL (12.0-15.0); Mean Corpuscular HGB Conc 29.6 g/dl (32-36); Mean Corpuscular Hemoglobin 24.5 pg (26-34); Mean Corpuscular Volume 82.9 fl (80-100); Platelet Count Result 216 k/mm3 (150-375); Red Blood Count 3.51 M/mm3 (4.2-5.4); White Blood Count 6.1 K/mm3 (4.5-10.0)
[2025-06-01 04:34] LABS: Alanine Aminotransferase 11 U/L (6-35); Albumin Level 3.7 g/dL (3.5-5.1); Alkaline Phosphatase 114 U/L (38-126); Anion Gap 9 mmol/L (4-12); Aspartate Amino Transferase 23 U/L (14-36); Bilirubin,Total 0.5 mg/dL (0.2-1.3); Blood Urea Nitrogen 31 mg/dL (7-17); Calcium 8.3 mg/dL (8.4-10.2); Carbon Dioxide 21 mmol/L (22-30); Chloride 105 mmol/L (98-107); Estimated CRCL calculation 19 ml/min; Estimated Glomerular Filt Rate 32; Glucose 98 mg/dL (65-110); Magnesium 2.4 mg/dL (1.6-2.3); Potassium 4.4 mmol/L (3.4-5.0); Sodium 135 mmol/L (137-145); Total Protein 6.7 g/dL (6.3-8.2)
[2025-06-01] MEDS: LEVOTHYROXINE SODIUM 100 MCG TABLET PO (06:13)
--- NOTE | 2025-06-01 08:04 | P.PNCA_ITS ---
Progress Note: A&P Assessment and Plan (1) Hypertension: Code(s): I10 - Essential (primary) hypertension Status: Acute Assessment and Plan: Stable. Stopped Amlodipine, Hydralazine, and IV Lasix. (2) Hyperlipidemia: Code(s): E78.5 - Hyperlipidemia, unspecified Status: Acute Assessment and Plan: On Atorvastatin. (3) Atrial fibrillation: Code(s): I48.91 - Unspecified atrial fibrillation Status: Acute Assessment and Plan: Her symptoms probably due to anemia causing faster HR in atrial fib and diastolic heart failure. In atrial fibrillation. [id number] 3. On Eliquis. Rate is mildly fast at 100 bpm. In past, she did not tolerate Metoprolol due to bradycardia. 05/29/25 On low dose Metoprolol Tarate 6.25 mg BID. 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 On Aspirin 325 mg daily. Hold Eliquis in light of bleeding and acutely anemic. Monitoring Hb and stable at 8.6 today. Discuss Watchman device and she would be a candidate for it to prevent cardioembolism not on anticoagulation given hemorrhoid bleeding and does not want surgery for it. This would be an outpatient referral. Will sign off, please call with any questions. May be discharged home from cardiology standpoint and to f/u with me in 1 week. (4) Diastolic dysfunction: Code(s): I51.89 - Other ill-defined heart diseases Status: Acute Assessment and Plan: Euvolemic. On Spironolactone 25 mg daily. Subjective Date/time seen: 06/01/25 08:04 Interval history: No chest pain or sob. Exam Const: General: cooperative, healthy appearing and comfortable Orientation/consciousness: oriented to person, oriented to place and oriented to time Resp: Auscultation: clear to auscultation bilaterally, no crackles, no rales, no rhonchi and no wheezes Cardio: Rate: regular rate Rhythm: abnormal rhythm Heart sounds: no murmurs Peripheral pulses: dorsalis pedis present Neuro: General: oriented to person, oriented to place and oriented to time Extrem: Right lower extremity: no edema Left lower extremity: no edema Objective Data Vital Signs Vital Signs: Vital Signs - 24 hr 05/31/25 09:07 05/31/25 10:00 05/31/25 10:26 Temperature Pulse Rate 79 75 Respiratory Rate Blood Pressure Pulse Oximetry 95 Oxygen Delivery Nasal Cannula Oxygen Flow Rate 2 05/31/25 11:50 05/31/25 12:00 05/31/25 12:00 Temperature 98.9 F Pulse Rate 76 75 Respiratory Rate 18 Blood Pressure 106/55 L Pulse Oximetry 94 94 Oxygen Delivery Nasal Cannula Oxygen Flow Rate 2 05/31/25 14:00 05/31/25 16:00 05/31/25 16:00 Temperature 97.5 F L Pulse Rate 74 64 76 Respiratory Rate 18 Blood Pressure 117/48 L Pulse Oximetry 100 Oxygen Delivery Oxygen Flow Rate 05/31/25 16:00 05/31/25 18:00 05/31/25 20:00 Temperature Pulse Rate 76 68 Respiratory Rate Blood Pressure Pulse Oximetry 100 Oxygen Delivery Nasal Cannula Oxygen Flow Rate 2 05/31/25 20:00 05/31/25 20:00 05/31/25 20:36 Temperature Pulse Rate 69 74 Respiratory Rate 18 Blood Pressure 110/43 L Pulse Oximetry 100 100 Oxygen Delivery Nasal Cannula Oxygen Flow Rate 2 05/31/25 22:00 06/01/25 00:00 06/01/25 00:00 Temperature Pulse Rate 70 66 Respiratory Rate Blood Pressure Pulse Oximetry 100 Oxygen Delivery Room Air Oxygen Flow Rate 06/01/25 00:00 06/01/25 02:00 06/01/25 04:00 Temperature 97.6 F 98.1 F Pulse Rate 75 74 70 Respiratory Rate 16 18 Blood Pressure 105/57 L 116/57 L Pulse Oximetry 100 94 Oxygen Delivery Oxygen Flow Rate 06/01/25 04:00 06/01/25 04:00 06/01/25 06:00 Temperature Pulse Rate 72 74 Respiratory Rate Blood Pressure Pulse Oximetry 99 Oxygen Delivery Room Air Oxygen Flow Rate Intake/Output Intake/Output: Intake & Output 05/29/25 05/30/25 05/31/25 06/01/25 23:59 23:59 23:59 23:59 Intake Total 930 1520 950 50 Output Total 250 1550 600 0 Balance 680 -30 350 50 Meds/Results Medications: Active Medications Generic Name Dose Route Start Last Admin Trade Name Freq PRN Reason Stop Dose Admin Acetaminophen 650 mg 05/29/25 08:55 Acetaminophen 325 Mg Tablet PO Q6H PRN Mild Pain (1-3) or Fever Aspirin 325 mg 05/30/25 09:00 05/31/25 09:07 Aspirin 325 Mg Enteric Tablet PO 325 mg QAM ORLY Administration Atorvastatin Calcium 80 mg 05/29/25 09:00 05/31/25 09:07 Atorvastatin 40 Mg Tablet PO 80 mg DAILY ORLY Administration Dextrose 12.5 gm 05/29/25 02:40 Dextrose 50% 25 Gm/50 Ml Syringe IV PUSH PRN PRN Hypoglycemia Protocol Docusate Sodium 100 mg 05/29/25 09:00 05/31/25 20:36 Docusate Sodium 100 Mg Capsule PO 100 mg Q12HR ORLY Administration Empagliflozin 10 mg 05/29/25 09:00 05/31/25 09:07 Empagliflozin 10 Mg Tablet PO 10 mg DAILY ORLY Administration Famotidine 20 mg 05/29/25 09:00 05/31/25 09:07 Famotidine 20 Mg Tablet PO 20 mg DAILY ORLY Administration Fluoxetine HCl 20 mg 05/29/25 09:00 05/31/25 09:07 Fluoxetine Hcl 20 Mg Capsule PO 20 mg DAILY ORLY Administration Glucagon 1 mg 05/29/25 02:40 Glucagon For Inj 1 Mg Vial IM PRN PRN Hypoglycemia Protocol Glucose 15 gm 05/29/25 02:40 Glucose Oral Gel 15 Gm Of Glucse In 37.5 Gm Tube PO PRN PRN Hypoglycemia Protocol Guaifenesin 600 mg 05/30/25 21:00 05/31/25 20:36 Guaifenesin 12 Hr 600 Mg Tabcr PO 600 mg Q12HR ORLY Administration Dextrose 1,000 mls @ 100 mls/hr 05/29/25 02:40 Dextrose 5% 1,000 Ml IVPB PRN PRN Hypoglycemia Protocol Insulin Aspart 2 - 5 units 05/29/25 08:00 05/31/25 16:45 Insulin Aspart (*Bkc) 100 Units/Ml SUB-Q Not Given TIDWM [facility] Protocol Levothyroxine Sodium 100 mcg 05/29/25 06:30 06/01/25 06:13 Levothyroxine Sodium 100 Mcg Tablet PO 100 mcg DAILY@0630 ORLY Administration Metoprolol Tartrate 6.25 mg 05/31/25 09:00 05/31/25 20:36 Metoprolol Tartrate 6.25 Mg Tablet PO 6.25 mg Q12HR ORLY Administration Spironolactone 25 mg 05/29/25 09:00 05/31/25 09:07 Spironolactone 25 Mg Tablet PO 25 mg DAILY ORLY Administration Radiology Results: ITS Impressions Chest X-Ray 05/28/25 19:07 Impression: 1: Persistent diffuse bilateral airspace disease likely superimposed on chronic interstitial lung disease. Differential diagnosis includes chronic edema and atypical pneumonia. Chest CT 05/28/25 21:39 IMPRESSION: 1. Cardiomegaly with probable mild interstitial edema. 2: Gallstones. 3: Indeterminate 1.8 cm left renal mass. Correlation with contrast-enhanced CT or MRI recommended for further evaluation. 4: Nonobstructing bilateral nephrolithiasis. Labs Labs: Laboratory Results - last 24 hr 05/31/25 05/31/25 05/31/25 11:28 15:29 20:20 WBC RBC Hgb Hct MCV MCH MCHC RDW Plt Count MPV Sodium Potassium Chloride Carbon Dioxide Anion Gap BUN Creatinine Estim Creat Clear Calc Estimated GFR Glucose POC Capillary Glucose 162 H 79 202 H Calcium Magnesium Total Bilirubin AST ALT Alkaline Phosphatase Total Protein Albumin 06/01/25 06/01/25 03:42 07:22 WBC 6.1 RBC 3.51 L Hgb 8.6 L Hct 29.1 L MCV 82.9 MCH 24.5 L MCHC 29.6 L RDW 14.2 Plt Count 216 MPV 9.9 Sodium 135 L Potassium 4.4 Chloride 105 Carbon Dioxide 21 L Anion Gap 9 BUN 31 H Creatinine 1.55 H Estim Creat Clear Calc 19 Estimated GFR 32 L Glucose 98 POC Capillary Glucose 101 Calcium 8.3 L Magnesium 2.4 H Total Bilirubin 0.5 AST 23 ALT 11 Alkaline Phosphatase 114 Total Protein 6.7 Albumin 3.7
[2025-06-01] MEDS: METOPROLOL TARTRATE 6.25 MG TABLET PO (08:39)
[2025-06-01] MEDS: guaiFENesin 12 HR 600 MG TABCR PO (08:40)
[2025-06-01] MEDS: DOCUSATE SODIUM 100 MG CAPSULE PO (08:40)
[2025-06-01] MEDS: ASPIRIN 325 MG ENTERIC TABLET PO (08:40)
[2025-06-01] MEDS: SPIRONOLACTONE 25 MG TABLET PO (08:40)
[2025-06-01] MEDS: ATORVASTATIN 40 MG TABLET 80 MG PO (08:40)
[2025-06-01] MEDS: FAMOTIDINE 20 MG TABLET PO (08:40)
[2025-06-01] MEDS: EMPAGLIFLOZIN 10 MG TABLET PO (08:40)
--- NOTE | 2025-06-01 13:19 | PM.DS ---
DS: Admitting Diagnosis Discharge Date 06/01/2025 DS: Summary Time Spent with Patient Time attestation: Total time spent providing and/or coordinating discharge services: DS: Data Data Completed and Pending Labs on day of discharge: Labs from last 24 hours 06/01/25 06/01/25 06/01/25 11:11 07:22 03:42 WBC 6.1 RBC 3.51 L Hgb 8.6 L Hct 29.1 L MCV 82.9 MCH 24.5 L MCHC 29.6 L RDW 14.2 Plt Count 216 MPV 9.9 Sodium 135 L Potassium 4.4 Chloride 105 Carbon Dioxide 21 L Anion Gap 9 BUN 31 H Creatinine 1.55 H Estim Creat Clear Calc 19 Estimated GFR 32 L Glucose 98 POC Capillary Glucose 131 H 101 Calcium 8.3 L Magnesium 2.4 H Total Bilirubin 0.5 AST 23 ALT 11 Alkaline Phosphatase 114 Total Protein 6.7 Albumin 3.7 05/31/25 05/31/25 20:20 15:29 WBC RBC Hgb Hct MCV MCH MCHC RDW Plt Count MPV Sodium Potassium Chloride Carbon Dioxide Anion Gap BUN Creatinine Estim Creat Clear Calc Estimated GFR Glucose POC Capillary Glucose 202 H 79 Calcium Magnesium Total Bilirubin AST ALT Alkaline Phosphatase Total Protein Albumin Preliminary micro results at discharge 05/29/25 13:25 Urine Culture - Preliminary Urine Clean Catch Gram negative bacilli isolated Discharge Plan Discharge Consulting providers: Ayala Mason; Roderick Geiger; Kodi Gan Patient Instructions: Apixaban (By mouth), Heart Failure (GEN) Patient Language: Polish Discharge Medications: No Action famotidine 20 mg tablet 20 mg PO DAILY Eliquis 2.5 mg tablet 2.5 mg PO BID Qty: 180 2RF docusate sodium 100 mg capsule 100 mg PO BID Qty: 60 2RF magnesium citrate [OneLAX Magnesium Citrate] Solution 300 ml PO ONCE PRN (Reason: constipation) Qty: 296 0RF Rx Instructions: as a single dose as needed for 3-4 with BM. Benefiber Sugar Free (dextrin) 3 gram/4 gram powder in packet 1.5 g PO BID Rx Instructions: mix into at least 4 oz water or juice before administering atorvastatin 80 mg tablet 80 mg PO DAILY amlodipine [Norvasc] 5 mg Tablet 5 mg PO QAM 30 Days Qty: 30 0RF Jardiance 10 mg Tablet 10 mg PO DAILY 30 Days Qty: 30 0RF glimepiride 2 mg tablet 2 mg PO DAILY albuterol sulfate 90 mcg/actuation HFA aerosol inhaler 2 puff INHALATION Q4H PRN (Reason: Shortness Of Breath) fluoxetine 20 mg capsule 20 mg PO DAILY metformin 500 mg tablet extended release 24 hr 500 mg PO DAILY hydralazine 10 mg Tablet 10 mg PO Q12H spironolactone 25 mg tablet 25 mg PO DAILY levothyroxine [Synthroid] 100 mcg Tablet 100 mcg PO DAILY@0630 30 Days Qty: 30 2RF Date of admission: 05/28/25 21:42 Primary Care Provider: Chung,Kaiden Barrett Admitting Provider: Shruthi Rivera Attending physician on admission: Shruthi Rivera Condition: Stable
--- NOTE | 2025-06-01 13:25 | P.DS_ITS ---
DS: Admitting Diagnosis Discharge Date 06/01/2025 Admitting Diagnosis Acute hypoxic respiratory failure, Atrial fibrillation with rapid ventricular response, CHF exacerbation DS: Discharge Diagnosis Discharge Diagnosis (1) Atrial fibrillation with RVR: Code(s): I48.91 - Unspecified atrial fibrillation Status: Acute (2) CHF (congestive heart failure): Qualifiers: Heart failure chronicity: acute on chronic Heart failure type: right- sided Qualified Code(s): I50.813 - Acute on chronic right heart failure Code(s): I50.9 - Heart failure, unspecified Status: Acute (3) Acute hypoxic respiratory failure: Code(s): J96.01 - Acute respiratory failure with hypoxia Status: Acute (4) Melena: Code(s): K92.1 - Melena Status: Acute (5) Acute on chronic anemia: Code(s): D64.9 - Anemia, unspecified Status: Acute (6) Hypothyroidism: Code(s): E03.9 - Hypothyroidism, unspecified Status: Acute (7) Type 2 diabetes mellitus: Code(s): E11.9 - Type 2 diabetes mellitus without complications Status: Acute (8) Chronic anticoagulation: Code(s): Z79.01 - terminal manager (current) use of anticoagulants Status: Acute (9) Hypertension: Code(s): I10 - Essential (primary) hypertension Status: Acute (10) Bradycardia: Code(s): R00.1 - Bradycardia, unspecified Status: Resolved (11) Pneumonia: Code(s): J18.9 - Pneumonia, unspecified organism Status: Resolved DS: Summary Hospital Course Reason for hospitalization: Acute hypixic respiratory failure, atrial fibrillation with rapid ventricular response, CHF exacerbation Hospital Course: Admission: Patient was a 84-year-old female with a past medical history of paroxysmal atrial fibrillation on chronic anticoagulation with Eliquis, CHF with preserved ejection fraction, moderate mitral valve regurgitation, moderate pulmonary hypertension, chronic kidney disease, postoperative hypothyroidism and diabetes who presented to the ER via EMS from [facility] due to palpitations. Patient is a fair historian and reports that she has been having funny feeling in her chest on and off for couple of days. She reports that it is like ?when her heart acts up.? She does report some mild increased shortness of breath from baseline. She denies any chest pain. She has not had any nausea or vomiting. She denies any cough or congestion. She was afebrile on presentation to the ER. EMS reported that the patient was having variable rhythm during transport. She was initially in AFib RVR then went into a trigeminal rhythm and had a run of V-tach before going back into AFib RVR. Patient had been hospitalized in February due to AFib with slowed ventricular response and her metoprolol was stopped at that time. The patient was mildly tachycardic with her known underlying AFib on arrival to the ER. She was documented to be satting in the upper 80s on room air. Once the patient was placed on nasal cannula oxygen oxygen saturations improved to the mid upper 90s and the patient's tachycardia resolved. The patient remains in AFib but rate is controlled at time of my evaluation without evidence of frequent ectopy at the time of my review Chest x-ray in the ER demonstrated cardiomegaly with bilateral diffuse airspace opacities with likely chronic underlying interstitial lung disease. CT of the chest was ordered to further the wound many 8 underlying lung pathology and demonstrated cardiomegaly with findings suspicious for interstitial edema. Patient denies any increased abdominal swelling, lower extremity swelling or orthopnea. Hospital course: Patient was admitted to the medical unit for further evaluation and treatment acute respiratory failure with hypoxia secondary to atrial fibrillation with RVR, CHF exacerbation. Patient with history of chronic diastolic heart failure last echocardiogram in 2024 showed diastolic dysfunction with LVEF of 65 70% showing atrial fibrillation with moderate pulmonary hypertension pressure [address] was showing cardiomegaly with mild interstitial edema at which time Cardiology was consulted we initiated on Lasix 20 mg IV push b.i.d. for diuresis and resumed her home spironolactone. Patient also presented with atrial fibrillation with RVR with a rate between 115-120. At this time cardiology initiated patient on metoprolol 12.5 mg b.i.d. however needed close monitoring since patient had previous history bradycardic episodes while on me toprolol. Cardiology had some concern for possible Roney/tachy syndrome possible need for pacemaker. At this time patient was transferred over to IMU for close cardiac monitoring after initiation of metoprolol patient did have intermittent pauses anywhere between 1.5-2 seconds however cardiology did not feel this time that she would need current pacemaker and decreased her metoprolol to 6.25 b.i.d.. Cardiology will plan to follow-up with patient in 1 week for further evaluation of her atrial fibrillation with discussion of possible Watchman procedure. Patient on admission was on Eliquis for atrial fibrillation but due to chronic anemia and internal bleeding hemorrhoids cardiology discontinued her Eliquis and placed her on aspirin 325 until patient can determine if she wants a Watchman procedure done to lower her risk stroke. Patient continued to require supplemental oxygen with exertion she would have episodes of desaturation after removal however at time of discharge a home O2 wa lk study was performed and patient did not need for oxygen requirements she had remained on room air for at least 24 hours maintaining 92%. Patient with overall improvement to symptoms requesting to return home cardiology at this time did not see a need to start oral Lasix will follow-up in 1 week to determine whether not to initiate that. Cardiology did discontinue patient's hydralazine amlodipine with the initiation of metoprolol BP remained stable with transition. Patient was discharged home with plans to follow-up with cardiology in 1 week. Patient seen assessed at time discharge in no acute distress on room air denied any chest pain for further shortness of breath HR controlled. Status at Discharge Cognitive/behavioral status at discharge: Stable Functional status at discharge: independent ambulation Overall status at discharge: patient is back to baseline Time Spent with Patient Time attestation: Total time spent providing and/or coordinating discharge services: Time spent: Greater than 30 minutes Exam Narrative: Weight 53.9 kg BMI 21.7 Const: General: comfortable and no acute distress Other: Frail, elderly female up in chair HENMT: Mouth: Yes moist mucous membranes Other: Head is normocephalic atraumatic, mucous membranes are tacky, no oral pharyngeal erythema, edentulous upper and lower jaw Eyes: General: appearance normal, both eyes and all related structures Other: Pupils are equal and reactive with bilateral lens implants noted, mild conjunctival pallor, no scleral icterus Neck: Neck: supple and no JVD Other: No JVD, no lymphadenopathy, loss of cervical lordosis Resp: Effort & Inspection: normal respiratory effort Auscultation: diminished lung sounds bilateral Other: Clear to auscultation bilaterally, no increased work of breathing Cardio: Rhythm: abnormal rhythm irregularly irregular Other: Irregularly irregular GI: Auscultation: normal bowel sounds Other: Soft, nontender, nondistended, positive bowel sounds : Other: Depends in place Back/Spine/Pelvis: Other: Thoracic kyphosis noted Skin: General skin exam: normal color and no rashes or lesions noted Wounds: no wounds Other: Mild pallor, non jaundice, warm to touch Neuro: Speech: normal speech Motor exam (neuro): 5/5 motor strength present throughout Sensory Exam: normal sensation Other: Alert oriented to person, place, year and name of the current president, she has mild left facial droop, speech is clear Extrem: Other: No clubbing, cyanosis or edema Psych: Mental Status: mental status grossly normal Affect: normal affect Other: Flat affect, cooperative, judgment and insight intact DS: Data Data Completed and Pending Labs on day of discharge: Labs from last 24 hours 06/01/25 06/01/25 06/01/25 11:11 07:22 03:42 WBC 6.1 RBC 3.51 L Hgb 8.6 L Hct 29.1 L MCV 82.9 MCH 24.5 L MCHC 29.6 L RDW 14.2 Plt Count 216 MPV 9.9 Sodium 135 L Potassium 4.4 Chloride 105 Carbon Dioxide 21 L Anion Gap 9 BUN 31 H Creatinine 1.55 H Estim Creat Clear Calc 19 Estimated GFR 32 L Glucose 98 POC Capillary Glucose 131 H 101 Calcium 8.3 L Magnesium 2.4 H Total Bilirubin 0.5 AST 23 ALT 11 Alkaline Phosphatase 114 Total Protein 6.7 Albumin 3.7 05/31/25 05/31/25 20:20 15:29 WBC RBC Hgb Hct MCV MCH MCHC RDW Plt Count MPV Sodium Potassium Chloride Carbon Dioxide Anion Gap BUN Creatinine Estim Creat Clear Calc Estimated GFR Glucose POC Capillary Glucose 202 H 79 Calcium Magnesium Total Bilirubin AST ALT Alkaline Phosphatase Total Protein Albumin Preliminary micro results at discharge 05/29/25 13:25 Urine Culture - Preliminary Urine Clean Catch Gram negative bacilli isolated Discharge Plan Discharge Attending physician on discharge: Reece Mackay Consulting providers: Ayala Mason; Roderick Geiger; Kodi Gan Discharging Clinician: Ayala Mason Anticipated Discharge Date/Time: 06/01/25 13:42 Patient Disposition: Home Activity: as tolerated Diet: heart healthy Discharge Instructions: 1). AFIB * Cardiology has started you on Metoprolol 6.25 (0.25 of a tablet) twice a day for HR control * follow-up with cardiology in [address] Gan * Please stop your Eliquis cardiology has changed it to Aspirin 325mg Daily * Cardiology has also discontinued your amlodipine and hydralazine for BP control 2). UTI * A 5 day course of antibiotics has been prescribed please take as indicated and complete even if feeling better How can you care for yourself at home? ? Keep track of any new symptoms or changes in your symptoms. ? Rest until you feel better. ? Be safe with medicines. Take your medicines exactly as prescribed. Call your doctor if you think you are having a problem with your medicine. ? Do not drive after taking a prescription pain medicine. ? Ensure to follow-up with primary care physician as indicated and provide updated medication list provided to you at discharge. When should you call for help? Call 911 anytime you think you may need emergency care. For example, call if: ? You passed out (lost consciousness). Call your doctor now or seek immediate medical care if: ? You have new symptoms like fever, difficulty breathing, Chest pain, vomiting, or rash. ? You have new or different pain. ? You are confused and are having trouble thinking clearly. ? Your symptoms are getting worse. Watch closely for changes in your health, and be sure to contact your doctor if: ? You do not get better as expected. Patient Instructions: Antibiotic Form, Heart Failure (GEN), A-fib (Atrial Fibrillation) (DC) Patient Language: Tanzanian Stand Alone Forms: General Discharge Information Follow-up/Referrals: Chung,Kaiden Barrett [Other] - 2 Weeks Kodi Gan DO [Physician, Cardiology] - 1 Week Discharge Medications: New aspirin 325 mg Tablet,Delayed Release (/Ec) 325 mg PO QAM Qty: 30 0RF metoprolol tartrate 25 mg tablet 6.25 mg PO BID Qty: 30 0RF sulfamethoxazole-trimethoprim 800-160 mg tablet 1 tablet PO Q12H Qty: 10 0RF Continued famotidine 20 mg tablet 20 mg PO DAILY docusate sodium 100 mg capsule 100 mg PO BID Qty: 60 2RF magnesium citrate [OneLAX Magnesium Citrate] Solution 300 ml PO ONCE PRN (Reason: constipation) Qty: 296 0RF Rx Instructions: as a single dose as needed for 3-4 with BM. Benefiber Sugar Free (dextrin) 3 gram/4 gram powder in packet 1.5 g PO BID Rx Instructions: mix into at least 4 oz water or juice before administering atorvastatin 80 mg tablet 80 mg PO DAILY Jardiance 10 mg Tablet 10 mg PO DAILY 30 Days Qty: 30 0RF glimepiride 2 mg tablet 2 mg PO DAILY albuterol sulfate 90 mcg/actuation HFA aerosol inhaler 2 puff INHALATION Q4H PRN (Reason: Shortness Of Breath) fluoxetine 20 mg capsule 20 mg PO DAILY metformin 500 mg tablet extended release 24 hr 500 mg PO DAILY spironolactone 25 mg tablet 25 mg PO DAILY levothyroxine [Synthroid] 100 mcg Tablet 100 mcg PO DAILY@0630 30 Days Qty: 30 2RF Discontinued Eliquis 2.5 mg tablet 2.5 mg PO BID Qty: 180 2RF amlodipine [Norvasc] 5 mg Tablet 5 mg PO QAM 30 Days Qty: 30 0RF hydralazine 10 mg Tablet 10 mg PO Q12H Date of admission: 05/28/25 21:42 Primary Care Provider: Chung,Kaiden Barrett Admitting Provider: Shruthi Rivera Attending physician on admission: Shruthi Rivera Condition: Stable Quality VTE Prophylaxis VTE prophylaxis: mechanical ordered Hospitalist MIPS Heart Failure (Exclusion) Patient has history of Heart Transplant or Left Ventricular Assistive Device?: No IF YES, STOP HERE Heart Failure (Qualifier) Patient has current or prior documentation of LVEF less than or equal to 40%, or mod/servere depressed LVSF?: No IF NO, STOP HERE
--- NOTE | 2025-06-01 15:25 | HOMEO2EVAL ---
Evaluation was performed at [facility] Home Oxygen Evaluation RC: Home Oxygen (O2) Evaluation Start: 06/01/25 09:05 Freq: ONCE Status: Active Protocol: RPE Activity Type Activity Date Activity User E-sign Co-sign Detail Recorded Client Recorded Date Recorded By Document 06/01/25 15:00 NICKY [email or web address] 06/01/25 15:25 NICKY Document 06/01/25 15:10 NICKY [email or web address] 06/01/25 15:25 NICKY Document 06/01/25 15:15 NICKY [email or web address] 06/01/25 15:25 NICKY 06/01/25 06/01/25 06/01/25 15:00 15:10 15:15 Home O2 Evaluation [Oxygen] -Test Phase Resting Exercise Resting -Oxygen Delivery Room Air Room Air Room Air [Pulse Oximetry] -Pulse Oximetry (90-100 %) 94 90 93 [Pulse Rate] -Pulse Rate (60-100 beats/min) 80 97 86 [Evaluation] -Activity Tolerance Good [Comments] -Home Oxygen Evaluation Comments Walked up to bathroom and back to bed with walker x 2 No home O2 needed at this time. [Charges] -Evaluation Charges O2 Evaluation by Pulmonary
--- NOTE | 2025-06-01 15:26 | PCRCNOTE ---
Home O2 eval done, no home O2 needed at this time. Up to bathroom and back to bed with walker x 2.
== END 2025-06-01 16:08 | disposition home or self-care (01) | DRG 291 ==
LOC: ANHED 21:45 → ANH3MED 22:38 → ANHIMU 05-29 14:54 → ANH3MED 06-03 13:59
PROVIDERS: Admitting Provider Internal Medicine; Emergency Provider Emergency Medicine; Visit Provider Nurse Practitioner Family
DX: I13.0 Hypertensive heart and chronic kidney disease with heart failure and stage 1 through stage 4 chronic kidney disease, or unspecified chronic kidney disease (principal); I50.33 Acute on chronic diastolic (congestive) heart failure; J96.01 Acute respiratory failure with hypoxia; I69.354 Hemiplegia and hemiparesis following cerebral infarction affecting left non-dominant side; I35.0 Nonrheumatic aortic (valve) stenosis; I48.0 Paroxysmal atrial fibrillation; I27.20 Pulmonary hypertension, unspecified; N18.9 Chronic kidney disease, unspecified; D64.9 Anemia, unspecified; E89.0 Postprocedural hypothyroidism; E78.5 Hyperlipidemia, unspecified; E11.9 Type 2 diabetes mellitus without complications; K76.0 Fatty (change of) liver, not elsewhere classified; K64.8 Other hemorrhoids; Z20.822 Contact with and (suspected) exposure to COVID-19; Z87.891 Personal history of nicotine dependence; Z79.01 Long term (current) use of anticoagulants; Z85.850 Personal history of malignant neoplasm of thyroid
CPT/HCPCS: 36415; 71045; 71250; 80048; 80053; 81001; 82803; 82948; 83605; 83690; 83735; 83880; 84100; 84443; 85025; 85027; 85610; 85730; 87086; 87186; 87637; 93005; 94618; 96374; 99285; A9270; J1815; J1938; J2405

== ENCOUNTER 2025-06-05 07:15 | Observation (INO) | payer OTHER, MEDICAID, SELFPAY ==
[2025-06-05] VITALS (15 sets, daily range): BP systolic 114–143; BP diastolic 54–92; PULSE 63–90; RESP 13–28; TEMP 36.8–37.2; O2SAT 89–100; BMI 23.1
--- NOTE | ~2025-06-05 | XR_ITS ---
EXAMINATION: XR chest 1V portable COMPARISON: No comparisons available. HISTORY: weakness FINDINGS: Moderate pulmonary venous congestion. Small basilar infiltrates. No pneumothorax. Moderate cardiomegaly. Mediastinal and hilar contours are within normal limits. Bony thorax no acute abnormality. Miscellaneous: None Impression: CHF Reviewed, dictated and finalized at location P. Impression: CHF
--- NOTE | 2025-06-05 07:24 | ED.GENADULT ---
HPI - General Adult General Chief complaint: Recheck/Abnormal Lab/Rx Stated complaint: low blood sugar History of Present Illness HPI narrative: 84-year-old female presents to the emergency department for evaluation for altered mental status. Care facility found the patient unresponsive this morning and called EMS for possible stroke. Patient does have a prior history of CVA. When EMS arrived on scene patient was found have a blood sugar 39 patient was treated with D10. Patient's blood sugar did increase to 125 and patient's mental status normalized. Upon arrival emergency department patient's only complaint is that she does feel cold. Patient reports that she did not eat dinner last night. Patient is on glimepiride and Jardiance and metformin. Related Data Home Medications ?Medication ?Instructions ?Recorded ?Confirmed ?Last Taken ?Type atorvastatin 80 mg tablet 80 mg PO DAILY 07/03/21 06/05/25 05/28/25 History albuterol sulfate 90 mcg/actuation 2 puff inhalation Q4H PRN 06/23/24 06/05/25 Unknown History aerosol inhaler Shortness Of Breath fluoxetine 20 mg capsule 20 mg PO DAILY 06/23/24 06/05/25 05/28/25 History glimepiride 2 mg tablet 2 mg PO DAILY 06/23/24 06/05/25 05/28/25 History metformin 500 mg tablet,extended 500 mg PO DAILY 06/23/24 06/05/25 05/28/25 History release 24 hr famotidine 20 mg tablet 20 mg PO DAILY 11/25/24 06/05/25 05/28/25 History spironolactone 25 mg tablet 25 mg PO DAILY 02/13/25 06/05/25 05/28/25 History wheat dextrin 3 gram/4 gram oral 1.5 g PO BID PRN constipation 04/15/25 06/05/25 05/28/25 History powder packet (Benefiber Sugar Free (dextrin)) blood sugar diagnostic (OneTouch 06/05/25 06/05/25 Unknown History Ultra Test strips) blood-glucose meter (OneTouch 06/05/25 06/05/25 Unknown History Ultra2 Meter) lancets 30 gauge (Easy Touch 06/05/25 06/05/25 Unknown History Safety Lancets) metoprolol tartrate 25 mg tablet 12.5 mg PO BID 06/05/25 06/05/25 Unknown History Allergies Allergy/AdvReac Type Severity Reaction Status Date / Time No Known Drug Allergies Allergy Unknown Unknown Verified 06/05/25 07:30 Review of Systems Review of Systems: All systems reviewed & are unremarkable except as noted in HPI and below [facility] Past Medical History Medical History (Updated 06/05/25 @ 12:47 by George Locke MD) Thyroid cancer Cirrhosis Suspected due to nodular appearance of liver on ultrasound from March 2022 but no history of ascites Hepatic steatosis Orthostatic hypotension Diastolic dysfunction Type 2 diabetes mellitus Right-sided heart failure Aortic valve stenosis Mild aortic valve stenosis with a valve area of 1.5 cm2 on echocardiogram in March 2022. Pulmonary hypertension Severe pulmonary hypertension with a PASP of 69 mmHg on echocardiogram in March 2022. 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 CODE STATUS: DNR/DNI (per patient request) Smoking packs per day: 2 Smoking cigarettes per day: 40.0 Years smoked: 50 Smoking pack-years: 100.00 Smoking status: Never smoker Alcohol intake: never Substance use: never Substance use type: does not use Do You Feel Safe in your Home?: Yes Lack of Transportation: No Lack of Food: Never True Current Housing: I Have Housing Concerned About Future Housing: No Difficulty Paying Gas/Electric Bills: No Difficulty Paying for Meds: No Currently Unemployed: No Education: High School Diploma/GED Difficulty w/ Childcare or Family Care: No Additional living arrangements comments: Assisted living at [facility]. Additional occupation/education comments: Retired. Spiritual care concerns: No Exam Narrative: APPEARANCE: Tired appearing HEAD: normocephalic, atraumatic. EYES: PERRLA/EOMI, conjunctivae clear. NOSE: Normal no drainage EARS:TMS clear with good light reflex. THROAT: Pharynx clear, no exudate. NECK: Supple. No adenopathy, no masses. RESPIRATORY: Airway patent, respirations nonlabored. Clear to auscultation bilaterally, no rales, rhonchi, wheezing. CARDIOVASCULAR: Regular rate and rhythm without murmurs rubs or gallops. ABDOMINAL: Soft, nontender, nondistended, normal bowel sounds MUSCULOSKELETAL: Left-sided deficit from prior CVA NEURO: Alert. Cranial nerves II through XII intact. Good gait. Good coordination SKIN: Warm, dry. Normal Color Course Vital Signs Vital signs: Vital Signs Pulse Rate 65 06/05/25 07:18 Respiratory Rate 17 06/05/25 07:18 Blood Pressure 143/60 H 06/05/25 07:18 Pulse Oximetry 100 06/05/25 07:18 Oxygen Delivery Room Air 06/05/25 07:18 Pulse Rate 90 06/05/25 14:30 Respiratory Rate 17 06/05/25 14:30 Blood Pressure 126/54 L 06/05/25 14:30 Pulse Oximetry 98 06/05/25 14:30 Oxygen Delivery Room Air 06/05/25 16:59 Medical Decision Making [facility] Narrative Medical decision making narrative: 84 old female presents emergency department for evaluation for generalized weakness and hypoglycemia. Patient does take glimepiride and states she did not eat last night. Patient's initial blood sugar was 39 seen did improve after D10. When the IV dextrose was stopped patient was having difficulty eating enough to keep her blood pressure elevated. Upon the final evaluation patient's blood sugars were only in the 70s and patient does still report increased lethargy and generalized weakness. Patient does not feel strong enough to be discharged back to her care facility. Patient is currently afebrile with leukocytosis hemoglobin of 8.6 which is not far from her baseline. Patient does have a creatinine of 1.89 which is a mild acute kidney injury on top of her chronic kidney disease. UA was negative for infection patient was negative for influenza RSV and for COVID. Chest x-ray shows CHF with no acute cardiopulmonary abnormality. Case discussed with hospitalist patient was accepted for admission for further evaluation for her generalized weakness and hypoglycemia. Differential Diagnosis Differential Diagnosis: COVID, RSV, pneumonia, decreased p.o., adverse drug reaction, UTI Vital Signs Vital Signs: Vital Signs Pulse Rate 65 06/05/25 07:18 Respiratory Rate 17 06/05/25 07:18 Blood Pressure 143/60 H 06/05/25 07:18 Pulse Oximetry 100 06/05/25 07:18 Oxygen Delivery Room Air 06/05/25 07:18 Pulse Rate 90 06/05/25 14:30 Respiratory Rate 17 06/05/25 14:30 Blood Pressure 126/54 L 06/05/25 14:30 Pulse Oximetry 98 06/05/25 14:30 Oxygen Delivery Room Air 06/05/25 16:59 Lab Data Lab results reviewed: Yes I reviewed the patient's lab results. 06/05/25 07:43 06/05/25 07:43 Labs: Lab Results 06/05/25 06/05/25 06/05/25 Range/Units 07:20 07:43 09:08 WBC 8.0 (4.5-10.0) K/mm3 RBC 3.60 L (4.2-5.4) M/mm3 Hgb 8.6 L (12.0-15.0) g/dL Hct 29.1 L (37.0-47.0) % MCV 80.8 (80-100) fl MCH 23.9 L (26-34) pg MCHC 29.6 L (32-36) g/dl RDW 14.6 H (11.5-14.5) % Plt Count 219 (150-375) k/mm3 MPV 9.4 (7.4-10.4) fl Immature Gran % (Auto) Not Reportable Neut % (Auto) Not Reportable Lymph % (Auto) Not Reportable [place] % (Auto) Not Reportable Eos % (Auto) Not Reportable Baso % (Auto) Not Reportable Lymph # (Auto) Not Reportable [place] # (Auto) Not Reportable Eos # (Auto) Not Reportable Baso # (Auto) Not Reportable Abs Immat Gran (auto) Not Reportable Absolute Neuts (auto) Not Reportable Absolute Nucleated RBC Not Reportable Total Counted 100 Neutrophils % (Manual) 84 H (46-73) % Band Neutrophils % 0 (0-6) % Lymphocytes % (Manual) 11 L (18-44) % Monocytes % (Manual) 5 (3-9) % Eosinophils % (Manual) 0 (0-4) % Basophils % (Manual) 0 (0-1) % Nucleated RBC % Not Reportable Abs Neuts (Manual) 6.72 H (1.3-6.7) K/mm3 Abs Lymphs (Manual) 0.88 L (1.1-4.5) K/mm3 Abs Monocytes (Manual) 0.40 (0.1-0.90) K/mm3 Absolute Eos (Manual) 0.00 L (0.02-0.50) K/mm3 Abs Basophils (Manual) 0.00 (0.0-0.1) K/mm3 Platelet Estimate Adequate (Adequate) Large Platelets Present Giant Platelets Present Ovalocytes Occasional [place] Cells 1+ Schistocytes Rare Sodium 136 L (137-145) mmol/L Potassium 4.7 (3.4-5.0) mmol/L Chloride 104 (98-107) mmol/L Carbon Dioxide 19 L (22-30) mmol/L Anion Gap 13 H (4-12) mmol/L BUN 33 H (7-17) mg/dL Creatinine 1.89 H (0.7-1.0) mg/dL Estim Creat Clear Calc 16 ml/min Estimated GFR 25 L (59 - ) Glucose 160 H (65-110) mg/dL POC Capillary Glucose 90 134 H (65-105) mg/dl Calcium 8.8 (8.4-10.2) mg/dL Urine Color Yellow (Yellow) Urine Appearance Clear (Clear) Urine pH 5.5 (5.0-9.0) Ur Specific [place] 1.023 (1.001-1.035) Urine Protein 2+ H (Negative) mg/dL Urine Glucose (UA) 2+ H (Negative) mg/dL Urine Ketones Negative (Negative) mg/dL Ur Blood (Man) Negative (Negative) Urine Nitrate Negative (Negative) Urine Bilirubin Negative (Negative) Urine Urobilinogen 0.2 (<2.0) mg/dL Leukocyte Esterase Rfl Negative (Negative) MERRICK/UL Urine RBC 0-2 (0-2) /hpf Urine WBC 0-5 (0-3) /hpf Ur Squamous Epith Cells None seen (Few) /hpf Urine Bacteria None seen /hpf Urine Casts 3-5 Influenza A (RT-PCR) (Negative) Influenza B (RT-PCR) (Negative) RSV (RT-PCR) (Negative) SARS-CoV-2 RNA (RT-PCR) (Negative) 06/05/25 06/05/25 06/05/25 Range/Units 10:15 11:01 11:56 WBC (4.5-10.0) K/mm3 RBC (4.2-5.4) M/mm3 Hgb (12.0-15.0) g/dL Hct (37.0-47.0) % MCV (80-100) fl MCH (26-34) pg MCHC (32-36) g/dl RDW (11.5-14.5) % Plt Count (150-375) k/mm3 MPV (7.4-10.4) fl Immature Gran % (Auto) Neut % (Auto) Lymph % (Auto) [place] % (Auto) Eos % (Auto) Baso % (Auto) Lymph # (Auto) [place] # (Auto) Eos # (Auto) Baso # (Auto) Abs Immat Gran (auto) Absolute Neuts (auto) Absolute Nucleated RBC Total Counted Neutrophils % (Manual) (46-73) % Band Neutrophils % (0-6) % Lymphocytes % (Manual) (18-44) % Monocytes % (Manual) (3-9) % Eosinophils % (Manual) (0-4) % Basophils % (Manual) (0-1) % Nucleated RBC % Abs Neuts (Manual) (1.3-6.7) K/mm3 Abs Lymphs (Manual) (1.1-4.5) K/mm3 Abs Monocytes (Manual) (0.1-0.90) K/mm3 Absolute Eos (Manual) (0.02-0.50) K/mm3 Abs Basophils (Manual) (0.0-0.1) K/mm3 Platelet Estimate (Adequate) Large Platelets Giant Platelets Ovalocytes [place] Cells Schistocytes Sodium (137-145) mmol/L Potassium (3.4-5.0) mmol/L Chloride (98-107) mmol/L Carbon Dioxide (22-30) mmol/L Anion Gap (4-12) mmol/L BUN (7-17) mg/dL Creatinine (0.7-1.0) mg/dL Estim Creat Clear Calc ml/min Estimated GFR (59 - ) Glucose (65-110) mg/dL POC Capillary Glucose 87 63 L 70 (65-105) mg/dl Calcium (8.4-10.2) mg/dL Urine Color (Yellow) Urine Appearance (Clear) Urine pH (5.0-9.0) Ur Specific [place] (1.001-1.035) Urine Protein (Negative) mg/dL Urine Glucose (UA) (Negative) mg/dL Urine Ketones (Negative) mg/dL Ur Blood (Man) (Negative) Urine Nitrate (Negative) Urine Bilirubin (Negative) Urine Urobilinogen (<2.0) mg/dL Leukocyte Esterase Rfl (Negative) MERRICK/UL Urine RBC (0-2) /hpf Urine WBC (0-3) /hpf Ur Squamous Epith Cells (Few) /hpf Urine Bacteria /hpf Urine Casts Influenza A (RT-PCR) (Negative) Influenza B (RT-PCR) (Negative) RSV (RT-PCR) (Negative) SARS-CoV-2 RNA (RT-PCR) (Negative) 06/05/25 Range/Units 12:30 WBC (4.5-10.0) K/mm3 RBC (4.2-5.4) M/mm3 Hgb (12.0-15.0) g/dL Hct (37.0-47.0) % MCV (80-100) fl MCH (26-34) pg MCHC (32-36) g/dl RDW (11.5-14.5) % Plt Count (150-375) k/mm3 MPV (7.4-10.4) fl Immature Gran % (Auto) Neut % (Auto) Lymph % (Auto) [place] % (Auto) Eos % (Auto) Baso % (Auto) Lymph # (Auto) [place] # (Auto) Eos # (Auto) Baso # (Auto) Abs Immat Gran (auto) Absolute Neuts (auto) Absolute Nucleated RBC Total Counted Neutrophils % (Manual) (46-73) % Band Neutrophils % (0-6) % Lymphocytes % (Manual) (18-44) % Monocytes % (Manual) (3-9) % Eosinophils % (Manual) (0-4) % Basophils % (Manual) (0-1) % Nucleated RBC % Abs Neuts (Manual) (1.3-6.7) K/mm3 Abs Lymphs (Manual) (1.1-4.5) K/mm3 Abs Monocytes (Manual) (0.1-0.90) K/mm3 Absolute Eos (Manual) (0.02-0.50) K/mm3 Abs Basophils (Manual) (0.0-0.1) K/mm3 Platelet Estimate (Adequate) Large Platelets Giant Platelets Ovalocytes [place] Cells Schistocytes Sodium (137-145) mmol/L Potassium (3.4-5.0) mmol/L Chloride (98-107) mmol/L Carbon Dioxide (22-30) mmol/L Anion Gap (4-12) mmol/L BUN (7-17) mg/dL Creatinine (0.7-1.0) mg/dL Estim Creat Clear Calc ml/min Estimated GFR (59 - ) Glucose (65-110) mg/dL POC Capillary Glucose (65-105) mg/dl Calcium (8.4-10.2) mg/dL Urine Color (Yellow) Urine Appearance (Clear) Urine pH (5.0-9.0) Ur Specific [place] (1.001-1.035) Urine Protein (Negative) mg/dL Urine Glucose (UA) (Negative) mg/dL Urine Ketones (Negative) mg/dL Ur Blood (Man) (Negative) Urine Nitrate (Negative) Urine Bilirubin (Negative) Urine Urobilinogen (<2.0) mg/dL Leukocyte Esterase Rfl (Negative) MERRICK/UL Urine RBC (0-2) /hpf Urine WBC (0-3) /hpf Ur Squamous Epith Cells (Few) /hpf Urine Bacteria /hpf Urine Casts Influenza A (RT-PCR) Negative (Negative) Influenza B (RT-PCR) Negative (Negative) RSV (RT-PCR) Negative (Negative) SARS-CoV-2 RNA (RT-PCR) Negative (Negative) Imaging Data My impression: Chest x-ray: Congestive heart failure Discharge Plan Discharge Clinical Impression: Hypoglycemia, Generalized weakness Patient Disposition: Still a Patient Condition: Stable
[2025-06-05 07:48] LABS: Hematocrit 29.1 % (37.0-47.0); Hemoglobin 8.6 g/dL (12.0-15.0); Mean Corpuscular HGB Conc 29.6 g/dl (32-36); Mean Corpuscular Hemoglobin 23.9 pg (26-34); Mean Corpuscular Volume 80.8 fl (80-100); Platelet Count Result 219 k/mm3 (150-375); Red Blood Count 3.60 M/mm3 (4.2-5.4); White Blood Count 8.0 K/mm3 (4.5-10.0)
[2025-06-05 08:00] LABS: Add Urine Microscopic? YES; Appearance Urine Clear (Clear); Glucose Urine UA 2+ mg/dL (Negative); Leukocyte Esterase Ur Negative LEU/UL (Negative); Nitrate Urine Negative (Negative); Specific Grav Ur 1.023 (1.001-1.035)
[2025-06-05 08:06] LABS: Anion Gap 13 mmol/L (4-12); Band Neutrophils Percent 0 % (0-6); Basophils Absolute Manual 0.00 K/mm3 (0.0-0.1); Basophils Percent Manual 0 % (0-1); Blood Urea Nitrogen 33 mg/dL (7-17); Calcium 8.8 mg/dL (8.4-10.2); Carbon Dioxide 19 mmol/L (22-30); Chloride 104 mmol/L (98-107); Eosinophils Absolute Manual 0.00 K/mm3 (0.02-0.50); Eosinophils Percent Manual 0 % (0-4); Estimated CRCL calculation 16 ml/min; Estimated Glomerular Filt Rate 25; Glucose 160 mg/dL (65-110); Lymphocytes Absolute Manual 0.88 K/mm3 (1.1-4.5); Lymphocytes Percent Manual 11 % (18-44); Monocytes Absolute Manual 0.40 K/mm3 (0.1-0.90); Monocytes Percent Manual 5 % (3-9); Neutrophils Absolute Manual 6.72 K/mm3 (1.3-6.7); Neutrophils Percent Manual 84 % (46-73); Potassium 4.7 mmol/L (3.4-5.0); Sodium 136 mmol/L (137-145); Total Cells Counted 100
[2025-06-05 08:09] LABS: Ovalocytes Occasional
[2025-06-05 08:10] LABS: Schistocytes Rare
--- NOTE | 2025-06-05 08:12 | PC.NURSE ---
pt got a total of 350 of D10
[2025-06-05 08:14] LABS: Burr Cells 1+
[2025-06-05 08:15] LABS: Giant Platelets Present
[2025-06-05] MEDS: SODIUM CHLORIDE 0.9% IV 500 ML 999 ML IV CONT (08:19)
--- NOTE | 2025-06-05 12:00 | PC.NURSE ---
BS recheck 70, this RN gave pt x2 apple juice with 3 sugar and 1 chocolate pudding
--- NOTE | 2025-06-05 12:57 | PC.NURSE ---
This RN talked to Gary at [facility] to give an update about pt getting admitted
[2025-06-05 13:10] LABS: Influenza A QL RT-PCR Negative (Negative); Influenza B QL RT-PCR Negative (Negative); RSV RNA, RT-PCR Negative (Negative); SARS-CoV-2 RNA PCR Negative (Negative)
--- NOTE | 2025-06-05 14:06 | P.HP_ITS ---
H&P: HPI History of Present Illness Date/Time: 06/05/25 14:06 Chief Complaint: Low blood sugar Narrative: 84-year-old female past medical history of cirrhosis, diastolic dysfunction, diabetes on oral medications, pulmonary hypertension, hypertension, hyperlipidemia and atrial fibrillation presents to the hospital with altered mental status. According to the ED note the patient was found unresponsive this morning an EMS was called for possible stroke. For EMS patient's blood sugar was 39 and she received D10. Patient had returned to her normal mental status. She states that she did not eat dinner last night. Patient states that she is having trouble urinating. She states that she tries to go but nothing comes out. Denies any other complaints Lab work in the ED shows anemia abscess 8.6, sodium of 136, carbon dioxide 19 anion gap 13, BUN of 33, creatinine of 1.89 baseline appears to be around 1.4, influenza A/B, RSV, COVID negative. Chest x-ray shows moderate pulmonary edema, last echo was on 10/22/2024 with EF of 65-70%. Patient did have issue of hypoglycemia on the floor was given 1 amp of D50 and started on D5. Review of Systems Review of Systems: 12 systems were reviewed and are negativ e except for as per HPI. [facility] Past Medical History Medical History (Updated 06/05/25 @ 12:47 by George Locke MD) Thyroid cancer Cirrhosis Suspected due to nodular appearance of liver on ultrasound from March 2022 but no history of ascites Hepatic steatosis Orthostatic hypotension Diastolic dysfunction Type 2 diabetes mellitus Right-sided heart failure Aortic valve stenosis Mild aortic valve stenosis with a valve area of 1.5 cm2 on echocardiogram in March 2022. Pulmonary hypertension Severe pulmonary hypertension with a PASP of 69 mmHg on echocardiogram in March 2022. 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 CODE STATUS: DNR/DNI (per patient request) Smoking packs per day: 2 Smoking cigarettes per day: 40.0 Years smoked: 50 Smoking pack-years: 100.00 Smoking status: Never smoker Alcohol intake: never Substance use: never Substance use type: does not use Do You Feel Safe in your Home?: Yes Lack of Transportation: No Lack of Food: Never True Current Housing: I Have Housing Concerned About Future Housing: No Difficulty Paying Gas/Electric Bills: No Difficulty Paying for Meds: No Currently Unemployed: No Education: High School Diploma/GED Difficulty w/ Childcare or Family Care: No Additional living arrangements comments: Assisted living at [facility] [place]. Additional occupation/education comments: Retired. Spiritual care concerns: No Meds Home Medications and Allergies Home Medications ?Medication ?Instructions ?Recorded ?Confirmed ?Type atorvastatin 80 mg tablet 80 mg PO DAILY 07/03/2111/25 History empagliflozin 10 mg tablet 10 mg PO DAILY 1 month #30 tabs 03/15/23 06/05/25 Rx (Jardiance) albuterol sulfate 90 mcg/actuation 2 puff inhalation Q 4H PRN 06/23/24 06/05/25 History aerosol inhaler Shortness Of Breath fluoxetine 20 mg capsule 20 mg PO DAILY 06/23/2411/25 History glimepiride 2 mg tablet 2 mg PO DAILY 06/23/2406/05 History metformin 500 mg tablet,extended 500 mg PO DAILY 06/2306/05/25 History release 24 hr docusate sodium 100 mg capsule 100 mg PO BID #60 caps 07/01/24 06/05/25 Rx magnesium citrate (OneLAX 300 ml PO ONCE PRN constipat ion 07/01/24 06/05/25 Rx Magnesium Citrate oral solution) #296 mL famotidine 20 mg tablet 20 mg PO DAILY 11/25/2411/25 History spironolactone 25 mg tablet 25 mg PO DAILY 02/13/25 History levothyroxine 100 mcg tablet 100 mcg PO DAILY@0630 30 days #30 02/16/25 06/05/25 Rx (Synthroid) tabs wheat dextrin 3 gram/4 gram oral 1.5 g PO BID PRN cons tipation 04/15/25 06/05/25 History powder packet (Benefiber Sugar Free (dextrin)) aspirin 325 mg tablet,delayed 325 mg PO QAM #30 tabs 0 06/01/25 06/05/25 Rx release sulfamethoxazole 800 1 tablet PO Q12H #10 tabs 06/05/25 Rx mg-trimethoprim 160 mg tablet blood sugar diagnostic (OneTouch 06/05/25 06/05/25 Hi story Ultra Test strips) blood-glucose meter (OneTouch 06/05/25 06/05/25 Histo ry Ultra2 Meter) lancets 30 gauge (Easy Touch 06/05/25 06/05/25 Histor y Safety Lancets) metoprolol tartrate 25 mg tablet 12.5 mg PO BID 06/05/25 History Allergies Allergy/AdvReac Type Severity Reaction Status Date / Time No Known Drug Allergies Allergy Unknown Unknown Verified 06/05/25 07:30 Vital Signs Vital Signs - 24 hr 06/05/25 07:18 06/05/25 07:27 06/05/25 07:31 Pulse Rate 65 74 69 Respiratory Rate 17 17 16 Blood Pressure 143/60 H 143/60 H 134/60 Pulse Oximetry 100 99 98 Oxygen Delivery Room Air 06/05/25 08:01 06/05/25 08:31 06/05/25 09:01 Pulse Rate 63 65 74 Respiratory Rate 28 H 13 14 Blood Pressure 130/58 L 131/54 L 141/61 H Pulse Oximetry 98 100 100 Oxygen Delivery 06/05/25 09:31 06/05/25 10:01 06/05/25 11:37 Pulse Rate 76 77 77 Respiratory Rate 20 20 17 Blood Pressure 143/65 H 142/56 H 137/72 Pulse Oximetry 91 93 89 L Oxygen Delivery 06/05/25 12:34 06/05/25 12:45 Pulse Rate 77 75 Respiratory Rate 21 H 15 Blood Pressure Pulse Oximetry 98 97 Oxygen Delivery Exam Narrative: General: well appearing, appears stated age. HEENT: normocephalic, atraumatic. Mucous membranes moist. EOMI, PERRLA, bilateral sclera anicteric, no conjunctival injection. Neck supple without JVD, lymphadenopathy, or bruit. Respiratory: clear to ascultation bilaterally. No rales/rhonic/wheezes. Cardiovascular: Regular rate and rhythm, normal S1-S2 upon ascultation. No murmurs, rubs, or clicks. PMI is nondisplaced, capillary refill less than 3 second. Abdomen: Soft, round, no pulsatile masses, nondistended and nontender. No rebound, no guarding. No CVA tenderness, no hepatosplenomegaly. Bowel sounds present to all four quadrants. No high pitch or tinkling sounds, resonant to percussion. Extremities: No cyanosis, clubbing, or edema present. Pulses are palpable 2/2. Active ROM to all four extremities. Neuro: Alert and orientated x 4. PERRLA. Cranial nerves 2-12 intact without focal deficit. Skin: Warm, dry, and intact, without rash, erythema, or lesion. Psych: pleasant, cooperative, normal speech, normal affect, no hallucinations, no dysarthia H&P: Results Labs Labs: Short CBC 06/05/25 Range/Units 07:43 WBC 8.0 (4.5-10.0) K/mm3 Hgb 8.6 L (12.0-15.0) g/dL Hct 29.1 L (37.0-47.0) % Plt Count 219 (150-375) k/mm3 BMP 06/05/25 07:43 Sodium 136 L Potassium 4.7 Chloride 104 Carbon Dioxide 19 L BUN 33 H Creatinine 1.89 H Glucose 160 H Calcium 8.8 Urine 06/05/25 Range/Units 07:43 Urine Color Yellow (Yellow) Urine Appearance Clear (Clear) Urine pH 5.5 (5.0-9.0) Ur Specific [place] 1.023 (1.001-1.035) Urine Protein 2+ H (Negative) mg/dL Urine Glucose (UA) 2+ H (Negative) mg/dL Assessment and Plan Assessment and plan (1) Hypoglycemia: Code(s): E16.2 - Hypoglycemia, unspecified Status: Acute Assessment and Plan: Accu-Cheks q.4 Hypoglycemia protocol Hold home oral diabetic medications D5 NS Regular diet (2) Type 2 diabetes mellitus: Code(s): E11.9 - Type 2 diabetes mellitus without complications Status: Acute Assessment and Plan: Regular diet for now, diabetic diet once blood sugar stabilizes (3) Anemia: Code(s): D64.9 - Anemia, unspecified Status: Acute Assessment and Plan: Anemia workup pending (4) Diastolic heart failure: Code(s): I50.30 - Unspecified diastolic (congestive) heart failure Status: Acute Assessment and Plan: Continue spironolactone Monitor for fluid overload while receiving fluids (5) Atrial fibrillation: Code(s): I48.91 - Unspecified atrial fibrillation Status: Acute Assessment and Plan: Continue metoprolol, statin aspirin (6) Hypothyroidism: Code(s): E03.9 - Hypothyroidism, unspecified Status: Acute Assessment and Plan: Continue Synthroid Plan Bladder scan and straight cath if needed Quality VTE Prophylaxis VTE prophylaxis: mechanical ordered If No VTE Prophylaxis Answer both mechanical and pharmacologic: Reason no pharmacologic proph: medical contraindication Hospitalist MIPS Advance Care Plan I have confirmed that the patient's Advanced Care Plan is present, code status is documented, or surrogate decision maker is listed in patient medical record.: Yes Medication Reconciliation I have utilized all available resources to obtain, update and review the patients current medications (includes all prescriptions, OTC, herbals, cannabis, and nutritional supplements).: Yes
[2025-06-05] MEDS: DEXTROSE 50% 25 GM/50 ML SYRINGE IV PUSH ×2 (17:38→17:46)
[2025-06-05] MEDS: DOCUSATE SODIUM 100 MG CAPSULE PO (17:47)
[2025-06-05] MEDS: DEXTROSE 5%/0.9% SOD CHL 1,000 ML 40 ML IV CONT (17:50)
[2025-06-06] MEDS: DEXTROSE 50% 25 GM/50 ML SYRINGE IV PUSH (02:34)
[2025-06-06] MEDS: LEVOTHYROXINE SODIUM 100 MCG TABLET PO (05:47)
[2025-06-06 06:00] VITALS: BP 131/66; PULSE 73; RESP 18; TEMP 37.3; O2SAT 93
[2025-06-06 06:22] LABS: Hematocrit 26.2 % (37.0-47.0); Hemoglobin 7.8 g/dL (12.0-15.0); Immature Granulocyte Percent A 1.6 % (0-0.5); Lymphocytes Absolute Auto 0.60 K/mm3 (0.9-3.2); Mean Corpuscular HGB Conc 29.8 g/dl (32-36); Mean Corpuscular Hemoglobin 24.3 pg (26-34); Mean Corpuscular Volume 81.6 fl (80-100); Nucleated Red Blood Cells Absolute Auto 0.000 K/mm3 (0.0-0.012); Nucleated Red Blood Cells Perc 0.0 % (0.0-0.2); Platelet Count Result 225 k/mm3 (150-375); Red Blood Count 3.21 M/mm3 (4.2-5.4); White Blood Count 6.3 K/mm3 (4.5-10.0)
[2025-06-06 06:39] LABS: Hemoglobin A1C 5.4 % (<5.7)
[2025-06-06 06:42] LABS: Iron < 10 ug/dL (37-170)
[2025-06-06 06:45] LABS: Anion Gap 6 mmol/L (4-12); Blood Urea Nitrogen 22 mg/dL (7-17); Calcium 8.4 mg/dL (8.4-10.2); Carbon Dioxide 20 mmol/L (22-30); Chloride 108 mmol/L (98-107); Estimated CRCL calculation 19 ml/min; Estimated Glomerular Filt Rate 32; Glucose 73 mg/dL (65-110); Potassium 5.0 mmol/L (3.4-5.0); Sodium 134 mmol/L (137-145)
[2025-06-06 06:53] LABS: Percent Iron Saturation 3 % (20-50)
[2025-06-06 07:20] LABS: Thyroid Stimulating Hormone Reflex 1.150 uIU/mL (0.465-4.68)
[2025-06-06 07:23] LABS: Ferritin 23.70 ng/mL (11.1-264)
[2025-06-06 07:57] LABS: Vitamin B12 284.0 pg/mL (239-931)
[2025-06-06 08:00] VITALS: PULSE 90; RESP 18; O2SAT 93
[2025-06-06] MEDS: ATORVASTATIN 40 MG TABLET 80 MG PO (08:33)
[2025-06-06] MEDS: SPIRONOLACTONE 25 MG TABLET PO (08:33)
[2025-06-06] MEDS: FAMOTIDINE 20 MG TABLET PO (08:33)
[2025-06-06] MEDS: ASPIRIN 325 MG ENTERIC TABLET PO (08:33)
[2025-06-06] MEDS: DOCUSATE SODIUM 100 MG CAPSULE PO ×2 (08:33→16:29)
[2025-06-06 08:34] VITALS: PULSE 90
[2025-06-06] MEDS: METOPROLOL TARTRATE 12.5 MG TABLET PO ×2 (08:34→16:30)
--- NOTE | 2025-06-06 15:11 | PM.IMPN ---
Progress Note: A&P Assessment and Plan (1) Type 2 diabetes mellitus: Code(s): E11.9 - Type 2 diabetes mellitus without complications Status: Acute (2) Hypoglycemia: Code(s): E16.2 - Hypoglycemia, unspecified Status: Acute (3) Anemia: Code(s): D64.9 - Anemia, unspecified Status: Acute Plan 84-year-old female past medical history of cirrhosis, diastolic dysfunction, diabetes on oral medications, pulmonary hypertension, hypertension, hyperlipidemia and atrial fibrillation presents to the hospital with altered mental status. According to the ED note the patient was found unresponsive this morning an EMS was called for possible stroke. For EMS patient's blood sugar was 39 and she received D10. Patient had returned to her normal mental status. She states that she did not eat dinner last night. ----- Hypoglycemia -severe on admission, causing altered mental status. Now resolved. Patient has been witnessed to eat her entire meal. Discontinue dextrose infusion. -continue to hold anti diabetic medications. Patient tells me she usually eats well but her daughter at bedside tells me she does not eat any meals at all. -continue Accu-Cheks q.4 hours for now. [id number] diabetes mellitus -hold anti glycemic for now. Anemia -continue to monitor, stool occult pending. -iron, vitamin B12, folate all low normal. Start iron, folic acid, vitamin B12 Diastolic heart failure -compensated, continue to monitor volume status. -continue [employer]ER spironolactone Atrial fibrillation -continue metoprolol -follow-up outpatient setting for further discussions of possible Watchman device implantation -not on Eliquis due to fall risk, anemia, internal bleeding hemorrhoids -continue [employer]ER aspirin 325 mg p.o. q.day Hypothyroidism -continue levothyroxine ----- Patient wishes to be modified code with CPR but no intubation. A thorough discussion with the patient and daughter at bedside. Patient had a hard time understanding the incompatibility of her modified code status with cardiopulmonary resuscitation. She defers to her daughter about decision making. Daughter reports we will keep the code status as is right now. Prior to admission patient lives at [facility]. Saline lock IV Continue [employer] T[employer]ER famotidine Continue [employer]ER aspirin Time Spent With Patient Time with patient: Greater than 35 minutes Subjective Date/time seen: 06/06/25 15:11 Interval history: Patient feels she is greatly improved, she feels slightly weak only. Review of Systems Review of Systems: All systems reviewed & are unremarkable except as noted in HPI and below (Subjective) Exam Const: General: comfortable and no acute distress Other: A&O x3 HENMT: Mouth: Yes moist mucous membranes Eyes: Pupils: Equal, round and reactive pupils present Neck: Neck: supple Resp: Effort & Inspection: normal respiratory effort Auscultation: clear to auscultation bilaterally Cardio: Rate: regular rate Rhythm: regular rhythm Heart sounds: no gallops, no murmurs and no rubs GI: Inspection: non-distended GI Palp: Yes Soft to palpation Auscultation: normal bowel sounds Neuro: Motor exam (neuro): 5/5 motor strength present throughout Extrem: General: no edema Objective Data Vital Signs Vital Signs: Vital Signs - 24 hr 06/05/25 16:59 06/05/25 17:47 06/05/25 20:00 Temperature 98.3 F Pulse Rate 82 Respiratory Rate 18 Blood Pressure 137/73 Pulse Oximetry 94 Oxygen Delivery Room Air Room Air 06/05/25 21:30 06/06/25 06:00 06/06/25 08:00 Temperature 99.0 F 99.1 F Pulse Rate 87 73 90 Respiratory Rate 18 18 18 Blood Pressure 134/62 131/66 Pulse Oximetry 94 93 93 Oxygen Delivery Room Air 06/06/25 08:34 Temperature Pulse Rate 90 Respiratory Rate Blood Pressure Pulse Oximetry Oxygen Delivery Intake/Output Intake/Output: Intake & Output 06/03/25 06/04/25 06/05/25 06/06/25 23:59 23:59 23:59 23:59 Intake Total 620 420 Output Total 75 Balance 545 420 Meds/Results Medications: Active Medications Generic Name Dose Route Start Last Admin Trade Name Freq PRN Reason Stop Dose Admin Acetaminophen 650 mg 06/05/25 14:12 Acetaminophen 325 Mg Tablet PO Q4H PRN Mild Pain (1-3) or Fever Albuterol 2 puff 06/05/25 17:44 Albuterol Sulfate (*Sp) Aerosol 1 Puff INHALATION Q4H PRN Shortness Of Breath Aspirin 325 mg 06/06/25 09:00 06/06/25 08:33 Aspirin 325 Mg Enteric Tablet PO 325 mg QAM ORLY Administration Atorvastatin Calcium 80 mg 06/06/25 09:00 06/06/25 08:33 Atorvastatin 40 Mg Tablet PO 80 mg DAILY ORLY Administration Cyanocobalamin 1,000 mcg 06/06/25 15:10 Cyanocobalamin 1,000 Mcg Tablet PO QAM ON LICENSE OF [facility] Dextrose 12.5 gm 06/05/25 07:21 06/06/25 02:34 Dextrose 50% 25 Gm/50 Ml Syringe IV PUSH 12.5 gm PRN PRN Administration Hypoglycemia Protocol Docusate Sodium 100 mg 06/05/25 17:00 06/06/25 08:33 Docusate Sodium 100 Mg Capsule PO 100 mg BID ORLY Administration Famotidine 20 mg 06/06/25 09:00 06/06/25 08:33 Famotidine 20 Mg Tablet PO 20 mg DAILY ORLY Administration Ferrous Sulfate 325 mg 06/06/25 15:10 Ferrous Sulfate 325 Mg Tablet PO DAILY ORLY Fluoxetine HCl 20 mg 06/06/25 09:00 06/06/25 08:33 Fluoxetine Hcl 20 Mg Capsule PO 20 mg DAILY ORLY Administration Folic Acid 1 mg 06/06/25 15:10 Folic Acid 1 Mg Tablet PO DAILY ORLY Glucose 15 gm 06/05/25 07:21 Glucose Oral Gel 15 Gm Of Glucse In 37.5 Gm Tube PO PRN PRN Hypoglycemia Protocol Dextrose 1,000 mls @ 100 mls/hr 06/05/25 07:21 Dextrose 5% 1,000 Ml IVPB PRN PRN Hypoglycemia Protocol Levothyroxine Sodium 100 mcg 06/06/25 06:30 06/06/25 05:47 Levothyroxine Sodium 100 Mcg Tablet PO 100 mcg DAILY@0630 ORLY Administration Metoprolol Tartrate 12.5 mg 06/06/25 09:00 06/06/25 08:34 Metoprolol Tartrate 12.5 Mg Tablet PO 12.5 mg BID ORLY Administration Spironolactone 25 mg 06/06/25 09:00 06/06/25 08:33 Spironolactone 25 Mg Tablet PO 25 mg DAILY ORLY Administration Radiology Results: ITS Impressions Chest X-Ray 06/05/25 13:14 Impression: CHF Labs Labs: Laboratory Results - last 24 hr 06/05/25 06/05/25 06/05/25 17:35 17:58 19:56 WBC RBC Hgb Hct MCV MCH MCHC RDW Plt Count MPV Immature Gran % (Auto) Neut % (Auto) Lymph % (Auto) [place] % (Auto) Eos % (Auto) Baso % (Auto) Lymph # (Auto) [place] # (Auto) Eos # (Auto) Baso # (Auto) Abs Immat Gran (auto) Absolute Neuts (auto) Absolute Nucleated RBC Nucleated RBC % Sodium Potassium Chloride Carbon Dioxide Anion Gap BUN Creatinine Estim Creat Clear Calc Estimated GFR Glucose POC Capillary Glucose 36 L* 190 H 78 Hemoglobin A1c Calcium Iron TIBC % Saturation Ferritin Vitamin B12 Folate TSH (Reflex) 06/05/25 06/05/25 06/06/25 20:48 21:16 01:14 WBC RBC Hgb Hct MCV MCH MCHC RDW Plt Count MPV Immature Gran % (Auto) Neut % (Auto) Lymph % (Auto) [place] % (Auto) Eos % (Auto) Baso % (Auto) Lymph # (Auto) [place] # (Auto) Eos # (Auto) Baso # (Auto) Abs Immat Gran (auto) Absolute Neuts (auto) Absolute Nucleated RBC Nucleated RBC % Sodium Potassium Chloride Carbon Dioxide Anion Gap BUN Creatinine Estim Creat Clear Calc Estimated GFR Glucose POC Capillary Glucose 67 87 63 L Hemoglobin A1c Calcium Iron TIBC % Saturation Ferritin Vitamin B12 Folate TSH (Reflex) 06/06/25 06/06/25 06/06/25 05:26 05:32 08:53 WBC 6.3 RBC 3.21 L Hgb 7.8 L Hct 26.2 L MCV 81.6 MCH 24.3 L MCHC 29.8 L RDW 14.7 H Plt Count 225 MPV 10.0 Immature Gran % (Auto) 1.6 H Neut % (Auto) 72.6 Lymph % (Auto) 9.6 L [place] % (Auto) 14.8 H Eos % (Auto) 1.1 Baso % (Auto) 0.3 Lymph # (Auto) 0.60 L [place] # (Auto) 0.9 H Eos # (Auto) 0.1 Baso # (Auto) 0.0 Abs Immat Gran (auto) 0.10 H Absolute Neuts (auto) 4.6 Absolute Nucleated RBC 0.000 Nucleated RBC % 0.0 Sodium 134 L Potassium 5.0 Chloride 108 H Carbon Dioxide 20 L Anion Gap 6 BUN 22 H D Creatinine 1.54 H Estim Creat Clear Calc 19 Estimated GFR 32 L Glucose 73 POC Capillary Glucose 78 91 Hemoglobin A1c 5.4 Calcium 8.4 Iron < 10 L TIBC 343 % Saturation 3 L Ferritin 23.70 Vitamin B12 284.0 Folate 2.8 TSH (Reflex) 1.150 06/06/25 11:10 WBC RBC Hgb Hct MCV MCH MCHC RDW Plt Count MPV Immature Gran % (Auto) Neut % (Auto) Lymph % (Auto) [place] % (Auto) Eos % (Auto) Baso % (Auto) Lymph # (Auto) [place] # (Auto) Eos # (Auto) Baso # (Auto) Abs Immat Gran (auto) Absolute Neuts (auto) Absolute Nucleated RBC Nucleated RBC % Sodium Potassium Chloride Carbon Dioxide Anion Gap BUN Creatinine Estim Creat Clear Calc Estimated GFR Glucose POC Capillary Glucose 102 Hemoglobin A1c Calcium Iron TIBC % Saturation Ferritin Vitamin B12 Folate TSH (Reflex)
[2025-06-06 16:05] VITALS: BP 121/59; PULSE 76; RESP 18; TEMP 36.9; O2SAT 98
[2025-06-06] MEDS: CYANOCOBALAMIN 1,000 MCG TABLET 1000 MCG PO (16:29)
[2025-06-06] MEDS: FERROUS SULFATE 325 MG TABLET PO (16:29)
[2025-06-06] MEDS: FOLIC ACID 1 MG TABLET PO (16:29)
[2025-06-06 16:30] VITALS: PULSE 69
[2025-06-06 22:00] VITALS: BP 151/75; PULSE 78; RESP 18; TEMP 36.9; O2SAT 90
[2025-06-07] VITALS (8 sets, daily range): BP systolic 119–151; BP diastolic 52–90; PULSE 68–82; RESP 18; TEMP 36.2–37; O2SAT 93–97
[2025-06-07] MEDS: LEVOTHYROXINE SODIUM 100 MCG TABLET PO (06:22)
[2025-06-07 06:48] LABS: Hematocrit 29.2 % (37.0-47.0); Hemoglobin 8.7 g/dL (12.0-15.0)
[2025-06-07 07:12] LABS: Anion Gap 10 mmol/L (4-12); Blood Urea Nitrogen 25 mg/dL (7-17); Calcium 8.9 mg/dL (8.4-10.2); Carbon Dioxide 18 mmol/L (22-30); Chloride 108 mmol/L (98-107); Estimated CRCL calculation 20 ml/min; Estimated Glomerular Filt Rate 34; Glucose 97 mg/dL (65-110); Potassium 5.7 mmol/L (3.4-5.0); Sodium 136 mmol/L (137-145)
[2025-06-07] MEDS: CYANOCOBALAMIN 1,000 MCG TABLET 1000 MCG PO (08:44)
[2025-06-07] MEDS: ATORVASTATIN 40 MG TABLET 80 MG PO (08:44)
[2025-06-07] MEDS: FERROUS SULFATE 325 MG TABLET PO (08:44)
[2025-06-07] MEDS: SPIRONOLACTONE 25 MG TABLET PO (08:44)
[2025-06-07] MEDS: ASPIRIN 325 MG ENTERIC TABLET PO (08:44)
[2025-06-07] MEDS: FAMOTIDINE 20 MG TABLET PO (08:44)
[2025-06-07] MEDS: FOLIC ACID 1 MG TABLET PO (08:44)
[2025-06-07] MEDS: DOCUSATE SODIUM 100 MG CAPSULE PO ×2 (08:44→18:43)
[2025-06-07] MEDS: METOPROLOL TARTRATE 12.5 MG TABLET PO ×2 (08:45→18:43)
--- NOTE | 2025-06-07 11:22 | P.PNIM_ITS ---
Progress Note: A&P Assessment and Plan (1) Type 2 diabetes mellitus: Code(s): E11.9 - Type 2 diabetes mellitus without complications Status: Acute (2) Hypoglycemia: Code(s): E16.2 - Hypoglycemia, unspecified Status: Acute (3) Anemia: Code(s): D64.9 - Anemia, unspecified Status: Acute (4) Hyperkalemia: Code(s): E87.5 - Hyperkalemia Status: Resolved Plan 84-year-old female past medical history of cirrhosis, diastolic dysfunction, CKD, diabetes on oral medications, pulmonary hypertension, hypertension, hyperlipidemia and atrial fibrillation presents to the hospital with altered mental status. According to the ED note the patient was found unresponsive this morning an EMS was called for possible stroke. For EMS patient's blood sugar was 39 and she received D10. Patient had returned to her normal mental status. She states that she did not eat dinner last night. ----- Hypoglycemia -severe on admission, causing altered mental status. Now resolved. Dextrose infusion discontinued. -continue to hold anti diabetic medications. Patient tells me she usually eats well but her daughter at bedside tells me she does not much at all. Dietary supplements added -Accu-Cheks a.c. HS. [id number] diabetes mellitus -hold anti glycemic for now. Anemia -continue to monitor, stool occult pending. -iron, vitamin B12, folate all low normal. Started iron, folic acid, vitamin B12 on 06/06/2025 Diastolic heart failure -compensated, continue to monitor volume status. -holding spironolactone due to hyperkalemia Hyperkalemia -potassium 5.7 on 06/07/2025. Multifactorial: CKD, spironolactone, beta- kika, improved diet -give Lokelma 10 mg p.o. x1. Continue to monitor BMP. Will not give dextrose with insulin due to admitting issue of hypoglycemia. If having further difficulty controlling hyperkalemia may have to hold beta-kika as well. CKD -stable, continue to monitor Atrial fibrillation -continue metoprolol -follow-up outpatient setting for further discussions of possible Watchman device implantation -not on Eliquis due to fall risk, anemia, internal bleeding hemorrhoids -continue TRACK PATROL aspirin 325 mg p.o. q.day Hypothyroidism -continue levothyroxine ----- Patient wishes to be modified code with CPR but no intubation. A thorough discussion with the patient and daughter at bedside. Patient had a hard time understanding the incompatibility of her modified code status with cardiopulmonary resuscitation. She defers to her daughter about decision making. Daughter reports we will keep the code status as is right now. Prior to admission patient lives at [facility]. Saline lock IV Continue TRACK PATROL famotidine Continue TRACK PATROL aspirin Diabetic diet with dietary supplements, Accu-Cheks a.c. HS. Telemetry for hyperkalemia Time Spent With Patient Time with patient: Greater than 35 minutes Subjective Date/time seen: 06/07/25 11:22 Interval history: Patient feels she is greatly improved, has no symptoms to report today other than that she did not get much sleep tonight due to a being loud in the room and difficulties with the peripheral IV. Review of Systems Review of Systems: All systems reviewed & are unremarkable except as noted in HPI and below (Subjective) Exam Const: General: comfortable and no acute distress Other: A&O x3 HENMT: Mouth: Yes moist mucous membranes Eyes: Pupils: Equal, round and reactive pupils present Neck: Neck: supple Resp: Effort & Inspection: normal respiratory effort Auscultation: clear to auscultation bilaterally Cardio: Rate: regular rate Rhythm: regular rhythm Heart sounds: no gallops, no murmurs and no rubs GI: Inspection: non-distended GI Palp: Yes Soft to palpation Auscultation: normal bowel sounds Neuro: Motor exam (neuro): 5/5 motor strength present throughout Extrem: General: no edema Objective Data Vital Signs Vital Signs: Vital Signs - 24 hr 06/06/25 16:05 06/06/25 16:30 06/06/25 20:00 Temperature 98.5 F Pulse Rate 76 69 Respiratory Rate 18 Blood Pressure 121/59 L Pulse Oximetry 98 Oxygen Delivery Room Air 06/06/25 22:00 06/07/25 06:00 06/07/25 08:45 Temperature 98.5 F 98.2 F Pulse Rate 78 71 80 Respiratory Rate 18 18 Blood Pressure 151/75 H 146/90 H Pulse Oximetry 90 97 Oxygen Delivery Intake/Output Intake/Output: Intake & Output 06/04/25 06/05/25 06/06/25 06/07/25 23:59 23:59 23:59 23:59 Intake Total 620 790 100 Output Total 75 Balance 545 790 100 Meds/Results Medications: Active Medications Generic Name Dose Route Start Last Admin Trade Name Freq PRN Reason Stop Dose Admin Acetaminophen 650 mg 06/05/25 14:12 Acetaminophen 325 Mg Tablet PO Q4H PRN Mild Pain (1-3) or Fever Albuterol 2 puff 06/05/25 17:44 Albuterol Sulfate (*Sp) Aerosol 1 Puff INHALATION Q4H PRN Shortness Of Breath Aspirin 325 mg 06/06/25 09:00 06/07/25 08:44 Aspirin 325 Mg Enteric Tablet PO 325 mg QAM ORLY Administration Atorvastatin Calcium 80 mg 06/06/25 09:00 06/07/25 08:44 Atorvastatin 40 Mg Tablet PO 80 mg DAILY ORLY Administration Cyanocobalamin 1,000 mcg 06/06/25 15:10 06/07/25 08:44 Cyanocobalamin 1,000 Mcg Tablet PO 1,000 mcg QAM ORLY Administration Dextrose 12.5 gm 06/05/25 07:21 06/06/25 02:34 Dextrose 50% 25 Gm/50 Ml Syringe IV PUSH 12.5 gm PRN PRN Administration Hypoglycemia Protocol Docusate Sodium 100 mg 06/05/25 17:00 06/07/25 08:44 Docusate Sodium 100 Mg Capsule PO 100 mg BID ORLY Administration Famotidine 20 mg 06/06/25 09:00 06/07/25 08:44 Famotidine 20 Mg Tablet PO 20 mg DAILY ORLY Administration Ferrous Sulfate 325 mg 06/06/25 15:10 06/07/25 08:44 Ferrous Sulfate 325 Mg Tablet PO 325 mg DAILY ORLY Administration Fluoxetine HCl 20 mg 06/06/25 09:00 06/07/25 08:44 Fluoxetine Hcl 20 Mg Capsule PO 20 mg DAILY ORLY Administration Folic Acid 1 mg 06/06/25 15:10 06/07/25 08:44 Folic Acid 1 Mg Tablet PO 1 mg DAILY ORLY Administration Glucose 15 gm 06/05/25 07:21 Glucose Oral Gel 15 Gm Of Glucse In 37.5 Gm Tube PO PRN PRN Hypoglycemia Protocol Dextrose 1,000 mls @ 100 mls/hr 06/05/25 07:21 Dextrose 5% 1,000 Ml IVPB PRN PRN Hypoglycemia Protocol Levothyroxine Sodium 100 mcg 06/06/25 06:30 06/07/25 06:22 Levothyroxine Sodium 100 Mcg Tablet PO 100 mcg DAILY@0630 ORLY Administration Metoprolol Tartrate 12.5 mg 06/06/25 09:00 06/07/25 08:45 Metoprolol Tartrate 12.5 Mg Tablet PO 12.5 mg BID ORLY Administration Sodium Zirconium Cyclosilicate 10 gm 06/07/25 11:30 Sodium Zirconium Cyclosilicate 10 Gm Powd.Pack PO 06/07/25 11:31 ONCE ONE Spironolactone 25 mg 06/06/25 09:00 06/07/25 08:44 Spironolactone 25 Mg Tablet PO 25 mg On Hold: 06/07/25 11:17 DAILY ORLY Administration Radiology Results: ITS Impressions Chest X-Ray 06/05/25 13:14 Impression: CHF Labs Labs: Laboratory Results - last 24 hr 06/06/25 06/06/25 06/07/25 17:40 19:49 00:34 Hgb Hct Sodium Potassium Chloride Carbon Dioxide Anion Gap BUN Creatinine Estim Creat Clear Calc Estimated GFR Glucose POC Capillary Glucose 111 H 156 H 122 H Calcium 06/07/25 06/07/25 06/07/25 04:35 05:54 07:50 Hgb 8.7 L Hct 29.2 L Sodium 136 L Potassium 5.7 H Chloride 108 H Carbon Dioxide 18 L Anion Gap 10 BUN 25 H Creatinine 1.46 H Estim Creat Clear Calc 20 Estimated GFR 34 L Glucose 97 POC Capillary Glucose 102 97 Calcium 8.9
[2025-06-07] MEDS: SODIUM ZIRCONIUM CYCLOSILICATE 10 GM POWD.PACK PO (11:55)
[2025-06-07 15:38] LABS: Anion Gap 11 mmol/L (4-12); Blood Urea Nitrogen 27 mg/dL (7-17); Calcium 9.2 mg/dL (8.4-10.2); Carbon Dioxide 18 mmol/L (22-30); Chloride 107 mmol/L (98-107); Estimated CRCL calculation 20 ml/min; Estimated Glomerular Filt Rate 33; Glucose 164 mg/dL (65-110); Potassium 5.6 mmol/L (3.4-5.0); Sodium 136 mmol/L (137-145)
[2025-06-07] MEDS: SODIUM ZIRCONIUM CYCLOSILICATE 5 GM POWD.PACK PO (17:01)
[2025-06-07 22:46] LABS: Anion Gap 10 mmol/L (4-12); Blood Urea Nitrogen 30 mg/dL (7-17); Calcium 8.6 mg/dL (8.4-10.2); Carbon Dioxide 18 mmol/L (22-30); Chloride 106 mmol/L (98-107); Estimated CRCL calculation 20 ml/min; Estimated Glomerular Filt Rate 32; Glucose 257 mg/dL (65-110); Potassium 4.5 mmol/L (3.4-5.0); Sodium 134 mmol/L (137-145)
[2025-06-08] VITALS (11 sets, daily range): BP systolic 114–140; BP diastolic 56–67; PULSE 65–83; RESP 18–20; TEMP 36.1–36.7; O2SAT 94–100
[2025-06-08] MEDS: LEVOTHYROXINE SODIUM 100 MCG TABLET PO (05:32)
[2025-06-08 07:37] LABS: Anion Gap 10 mmol/L (4-12); Blood Urea Nitrogen 26 mg/dL (7-17); Calcium 8.6 mg/dL (8.4-10.2); Carbon Dioxide 18 mmol/L (22-30); Chloride 107 mmol/L (98-107); Estimated CRCL calculation 24 ml/min; Estimated Glomerular Filt Rate 40; Glucose 130 mg/dL (65-110); Magnesium 2.0 mg/dL (1.6-2.3); Potassium 4.6 mmol/L (3.4-5.0); Sodium 135 mmol/L (137-145)
[2025-06-08] MEDS: ATORVASTATIN 40 MG TABLET 80 MG PO (08:34)
[2025-06-08] MEDS: CYANOCOBALAMIN 1,000 MCG TABLET 1000 MCG PO (08:34)
[2025-06-08] MEDS: DOCUSATE SODIUM 100 MG CAPSULE PO ×2 (08:34→17:08)
[2025-06-08] MEDS: ASPIRIN 325 MG ENTERIC TABLET PO (08:34)
[2025-06-08] MEDS: FAMOTIDINE 20 MG TABLET PO (08:34)
[2025-06-08] MEDS: FERROUS SULFATE 325 MG TABLET PO (08:34)
[2025-06-08] MEDS: FOLIC ACID 1 MG TABLET PO (08:34)
[2025-06-08] MEDS: METOPROLOL TARTRATE 12.5 MG TABLET PO ×2 (08:35→17:08)
[2025-06-08] MEDS: SODIUM ZIRCONIUM CYCLOSILICATE 5 GM POWD.PACK PO ×3 (10:49→20:57)
--- NOTE | 2025-06-08 15:54 | P.PNIM_ITS ---
Progress Note: A&P Assessment and Plan (1) PRANAY (acute kidney injury): Code(s): N17.9 - Acute kidney failure, unspecified Status: Resolved Assessment and Plan: Improving * Creatinine 2.60 on admission. * Encourage oral intake. * Monitor renal function. (2) Hyperkalemia: Code(s): E87.5 - Hyperkalemia Status: Resolved Assessment and Plan: Improved Lokelma 20 IV Lasix x1 Repeat BMP 06/08: K 4.6, will continue Lokelma through the day, re-evaluate tomorrow AM with BMP (3) Diabetes: Code(s): E11.9 - Type 2 diabetes mellitus without complications Status: Resolved Assessment and Plan: Hypoglycemia on admission * Hypoglycemic protocol. * SSI * HgbA1C 6.1%. * Hold home metformin and glimepiride. * Continue Jardiance 10 mg PO daily. 06/08: Will restart Jardiance tomorrow AM and continue to check BS. -Continue to hold metformin & glimepiride due to hypoglycemia & kidney function, will hold on D/C as well and have pt f/u with PCP. (4) Paroxysmal atrial fibrillation: Code(s): I48.0 - Paroxysmal atrial fibrillation Status: Acute Assessment and Plan: * Apixaban 2.5 mg PO BID * Metoprolol Succinate 50 mg PO daily. (5) Right-sided heart failure: Code(s): I50.810 - Right heart failure, unspecified Status: Acute Assessment and Plan: * Spironolactone 25 mg PO daily. * Jardiance 10 mg Po daily. * Metoprolol Succinate 50 mg PO daily. * Lasix x1 this morning * Echo 65-70% (6) Weakness: Code(s): R53.1 - Weakness Status: Resolved Assessment and Plan: * PT/OT * UA noninfected (7) Nausea: Code(s): R11.0 - Nausea Status: Resolved Assessment and Plan: * Ondansetron 4 mg ivp q 6 PRN. * Scheduled Reglan (8) Hypertension: Code(s): I10 - Essential (primary) hypertension Status: Acute Assessment and Plan: * Continue Amlodipine 5 mg PO daily. (9) Pneumonia: Code(s): J18.9 - Pneumonia, unspecified organism Status: Resolved Assessment and Plan: Started on azithromycin and Rocephin (10) Type 2 diabetes mellitus: Code(s): E11.9 - Type 2 diabetes mellitus without complications Status: Acute (11) Hypoglycemia: Code(s): E16.2 - Hypoglycemia, unspecified Status: Acute (12) Anemia: Code(s): D64.9 - Anemia, unspecified Status: Acute Plan 84-year-old female past medical history of cirrhosis, diastolic dysfunction, CKD, diabetes on oral medications, pulmonary hypertension, hypertension, hyperlipidemia and atrial fibrillation presents to the hospital with altered mental status. According to the ED note the patient was found unresponsive this morning an EMS was called for possible stroke. For EMS patient's blood sugar was 39 and she received D10. Patient had returned to her normal mental status. She states that she did not eat dinner last night. ----- Hypoglycemia -severe on admission, causing altered mental status. Now resolved. Dextrose infusion discontinued. -continue to hold anti diabetic medications. Patient tells me she usually eats well but her daughter at bedside tells me she does not much at all. Dietary supplements added -Accu-Cheks a.c. HS. Umw-kxxcram-epseldkol diabetes mellitus -hold anti glycemic for now. Anemia -continue to monitor, stool occult pending. -iron, vitamin B12, folate all low normal. Started iron, folic acid, vitamin B12 on 06/06/2025 Diastolic heart failure -compensated, continue to monitor volume status. -holding spironolactone due to hyperkalemia Hyperkalemia -potassium 5.7 on 06/07/2025. Multifactorial: CKD, spironolactone, beta- kika, improved diet -give Lokelma 10 mg p.o. x1. Continue to monitor BMP. Will not give dextrose with insulin due to admitting issue of hypoglycemia. If having further difficul ty controlling hyperkalemia may have to hold beta-kika as well. CKD -stable, continue to monitor Atrial fibrillation -continue metoprolol -follow-up outpatient setting for further discussions of possible Watchman device implantation -not on Eliquis due to fall risk, anemia, internal bleeding hemorrhoids -continue [employer] aspirin 325 mg p.o. q.day Hypothyroidism -continue levothyroxine ----- Patient wishes to be modified code with CPR but no intubation. A thorough discussion with the patient and daughter at bedside. Patient had a hard time understanding the incompatibility of her modified code status with cardiopulmonary resuscitation. She defers to her daughter about decision making. Daughter reports we will keep the code status as is right now. Prior to admission patient lives at [facility]. Saline lock IV Continue [employer] famotidine Continue [employer] aspirin Diabetic diet with dietary supplements, Accu-Cheks a.c. HS. Telemetry for hyperkalemia Time Spent With Patient Time with patient: Greater than 35 minutes Subjective Date/time seen: 06/08/25 09 Interval history: 84-year-old female past medical history of cirrhosis, diastolic dysfunction, diabetes on oral medications, pulmonary hypertension, hypertension, hyperlipidemia and atrial fibrillation presents to the hospital with altered mental status. According to the ED note the patient was found unresponsive this morning an EMS was called for possible stroke. For EMS patient's blood sugar was 39 and she received D10. Patient had returned to her normal mental status. 06/08: Pt states that she is feeling back to her baseline today. Plan for reintroduction of DM meds tonight and monitor labs. Review of Systems Review of Systems: 12 systems were reviewed and are negativ e except for as per HPI. All systems reviewed & are unremarkable except as noted in HPI and below Exam Const: General: comfortable and no acute distress Other: A&O x4 HENMT: Mouth: Yes moist mucous membranes Eyes: Pupils: Equal, round and reactive pupils present Neck: Neck: supple Resp: Effort & Inspection: normal respiratory effort Auscultation: clear to auscultation bilaterally Cardio: Rate: regular rate Rhythm: regular rhythm Heart sounds: no gallops, no murmurs and no rubs GI: Inspection: non-distended Auscultation: normal bowel sounds Neuro: Cranial nerves: Yes Equal, round and reactive pupils present Motor exam (neuro): 5/5 motor strength present throughout Extrem: General: no edema Objective Data Vital Signs Vital Signs: Vital Signs - 24 hr 06/07/25 16:00 06/07/25 17:07 06/07/25 18:43 Temperature Pulse Rate 82 68 Respiratory Rate Blood Pressure 144/70 H Pulse Oximetry Oxygen Delivery 06/07/25 20:00 06/07/25 22:00 06/08/25 00:00 Temperature 97.2 F L Pulse Rate 69 70 65 Respiratory Rate 18 Blood Pressure 151/52 H Pulse Oximetry 96 Oxygen Delivery 06/08/25 04:00 06/08/25 06:00 06/08/25 08:00 Temperature 97.0 F L Pulse Rate 66 66 Respiratory Rate 18 Blood Pressure 140/67 Pulse Oximetry 98 Oxygen Delivery Room Air 06/08/25 08:00 06/08/25 08:35 06/08/25 12:00 Temperature Pulse Rate 73 72 73 Respiratory Rate Blood Pressure Pulse Oximetry Oxygen Delivery 06/08/25 14:00 Temperature 96.9 F L Pulse Rate 77 Respiratory Rate 18 Blood Pressure 120/56 L Pulse Oximetry 100 Oxygen Delivery Intake/Output Intake/Output: Intake & Output 06/05/25 06/06/25 06/07/25 06/08/25 23:59 23:59 23:59 23:59 Intake Total 620 790 580 540 Output Total 75 Balance 545 790 580 540 Meds/Results Medications: Active Medications Generic Name Dose Route Start Last Admin Trade Name Freq PRN Reason Stop Dose Admin Acetaminophen 650 mg 06/05/25 14:12 Acetaminophen 325 Mg Tablet PO Q4H PRN Mild Pain (1-3) or Fever Albuterol 2 puff 06/05/25 17:44 Albuterol Sulfate (*Sp) Aerosol 1 Puff INHALATION Q4H PRN Shortness Of Breath Aspirin 325 mg 06/06/25 09:00 06/08/25 08:34 Aspirin 325 Mg Enteric Tablet PO 325 mg QAM ORLY Administration Atorvastatin Calcium 80 mg 06/06/25 09:00 06/08/25 08:34 Atorvastatin 40 Mg Tablet PO 80 mg DAILY ORLY Administration Cyanocobalamin 1,000 mcg 06/06/25 15:10 06/08/25 08:34 Cyanocobalamin 1,000 Mcg Tablet PO 1,000 mcg QAM ORLY Administration Dextrose 12.5 gm 06/05/25 07:21 06/06/25 02:34 Dextrose 50% 25 Gm/50 Ml Syringe IV PUSH 12.5 gm PRN PRN Administration Hypoglycemia Protocol Docusate Sodium 100 mg 06/05/25 17:00 06/08/25 08:34 Docusate Sodium 100 Mg Capsule PO 100 mg BID ORLY Administration Famotidine 20 mg 06/06/25 09:00 06/08/25 08:34 Famotidine 20 Mg Tablet PO 20 mg DAILY ORLY Administration Ferrous Sulfate 325 mg 06/06/25 15:10 06/08/25 08:34 Ferrous Sulfate 325 Mg Tablet PO 325 mg DAILY ORLY Administration Fluoxetine HCl 20 mg 06/06/25 09:00 06/08/25 08:34 Fluoxetine Hcl 20 Mg Capsule PO 20 mg DAILY ORLY Administration Folic Acid 1 mg 06/06/25 15:10 06/08/25 08:34 Folic Acid 1 Mg Tablet PO 1 mg DAILY ORLY Administration Glucose 15 gm 06/05/25 07:21 Glucose Oral Gel 15 Gm Of Glucse In 37.5 Gm Tube PO PRN PRN Hypoglycemia Protocol Dextrose 1,000 mls @ 100 mls/hr 06/05/25 07:21 Dextrose 5% 1,000 Ml IVPB PRN PRN Hypoglycemia Protocol Levothyroxine Sodium 100 mcg 06/06/25 06:30 06/08/25 05:32 Levothyroxine Sodium 100 Mcg Tablet PO 100 mcg DAILY@0630 ORLY Administration Metoprolol Tartrate 12.5 mg 06/06/25 09:00 06/08/25 08:35 Metoprolol Tartrate 12.5 Mg Tablet PO 12.5 mg BID ORLY Administration Sodium Zirconium Cyclosilicate 5 gm 06/07/25 16:10 06/08/25 10:49 Sodium Zirconium Cyclosilicate 5 Gm Powd.Pack PO 5 gm TID@1000,1500,2200 ORLY Administration Spironolactone 25 mg 06/06/25 09:00 06/07/25 08:44 Spironolactone 25 Mg Tablet PO 25 mg On Hold: 06/07/25 11:17 DAILY ORLY Administration Radiology Results: ITS Impressions Chest X-Ray 06/05/25 13:14 Impression: CHF Labs Labs: Laboratory Results - last 24 hr 06/07/25 06/07/25 06/07/25 16:49 21:15 22:13 Sodium 134 L Potassium 4.5 Chloride 106 Carbon Dioxide 18 L Anion Gap 10 BUN 30 H Creatinine 1.53 H Estim Creat Clear Calc 20 Estimated GFR 32 L Glucose 257 H POC Capillary Glucose 175 H 286 H Calcium 8.6 Magnesium 06/08/25 06/08/25 06/08/25 00:11 05:32 06:12 Sodium 135 L Potassium 4.6 Chloride 107 Carbon Dioxide 18 L Anion Gap 10 BUN 26 H Creatinine 1.26 H Estim Creat Clear Calc 24 Estimated GFR 40 L Glucose 130 H POC Capillary Glucose 196 H 146 H Calcium 8.6 Magnesium 2.0 06/08/25 06/08/25 07:53 11:28 Sodium Potassium Chloride Carbon Dioxide Anion Gap BUN Creatinine Estim Creat Clear Calc Estimated GFR Glucose POC Capillary Glucose 134 H 195 H Calcium Magnesium Quality VTE Prophylaxis VTE prophylaxis: pharmacologic ordered
--- NOTE | 2025-06-08 16:28 | P.PNIM_ITS ---
Progress Note: A&P Assessment and Plan (1) Type 2 diabetes mellitus: Code(s): E11.9 - Type 2 diabetes mellitus without complications Status: Acute Assessment and Plan: -hold anti glycemic for now. 06/08: BS has been trending baseline high. Will re-introduce Jardiance back in tomorrow AM. -Will continue to hold metformin & glimepiride as her blood sugars have been low and her kidney function has also been low (2) Hypoglycemia: Code(s): E16.2 - Hypoglycemia, unspecified Status: Acute Assessment and Plan: -severe on admission, causing altered mental status. Now resolved. Dextrose infusion discontinued. -continue to hold anti diabetic medications. Patient tells me she usually eats well but her daughter at bedside tells me she does not much at all. Dietary supplements added -Accu-Cheks a.c. HS. -See above (3) Anemia: Code(s): D64.9 - Anemia, unspecified Status: Acute Assessment and Plan: -continue to monitor, stool occult pending. -iron, vitamin B12, folate all low normal. Started iron, folic acid, vitamin B12 on 06/06/2025, will continue on D/C (4) Diastolic dysfunction: Code(s): I51.89 - Other ill-defined heart diseases Status: Acute Assessment and Plan: -compensated, continue to monitor volume status. -holding spironolactone due to hyperkalemia (5) Atrial fibrillation: Code(s): I48.91 - Unspecified atrial fibrillation Status: Acute Assessment and Plan: -continue metoprolol -follow-up outpatient setting for further discussions of possible Watchman device implantation -not on Eliquis due to fall risk, anemia, internal bleeding hemorrhoids -continue SOOT BLOWER aspirin 325 mg p.o. q.day (6) CKD (chronic kidney disease): Code(s): N18.9 - Chronic kidney disease, unspecified Status: Acute Assessment and Plan: -stable at her baseline, continue to monitor -Continue to home metformin & glimepiride (7) Hypothyroidism: Code(s): E03.9 - Hypothyroidism, unspecified Status: Acute Assessment and Plan: -continue levothyroxine (8) Hyperkalemia: Code(s): E87.5 - Hyperkalemia Status: Resolved Assessment and Plan: -potassium 5.7 on 06/07/2025. Multifactorial: CKD, spironolactone, beta- kika, improved diet -give Lokelma 10 mg p.o. x1. Continue to monitor BMP. Will not give dextrose with insulin due to admitting issue of hypoglycemia. If having further difficulty controlling hyperkalemia may have to hold beta-kika as well. 06/08: Stable lab at 4.6, will continue to give lokelma until lab recheck tomorrow Plan Patient wishes to be modified code with CPR but no intubation. A thorough discussion with the patient and daughter at bedside. Patient had a hard time understanding the incompatibility of her modified code status with cardiopulmonary resuscitation. She defers to her daughter about decision making. Daughter reports we will keep the code status as is right now. Prior to admission patient lives at [facility]. Saline lock IV Continue SOOT BLOWER famotidine Continue SOOT BLOWER aspirin Diabetic diet with dietary supplements, Accu-Cheks a.c. HS. Telemetry for hyperkalemia Time Spent With Patient Time: 30 Subjective Date/time seen: 06/08/25 16:28 Interval history: 84-year-old female past medical history of cirrhosis, diastolic dysfunction, diabetes on oral medications, pulmonary hypertension, hypertension, hyperlipidemia and atrial fibrillation presents to the hospital with altered mental status. According to the ED note the patient was found unresponsive this morning an EMS was called for possible stroke. For EMS patient's blood sugar was 39 and she received D10. Patient had returned to her normal mental status. 06/08: Pt states that she is feeling back to her baseline today. Plan for reintroduction of DM meds tonight and monitor labs. Review of Systems Review of Systems: 12 systems were reviewed and are negativ e except for as per HPI. Exam Const: General: comfortable and no acute distress Other: A&O x4 HENMT: Face/Nose/Sinus: Normal nares present Mouth: Yes moist mucous membranes Eyes: General: appearance normal, both eyes and all related structures Sclera: sclerae normal Neck: Neck: supple Thyroid: thyroid normal Carotids: no bruits Resp: Effort & Inspection: normal respiratory effort Auscultation: clear to auscultation bilaterally Cardio: Rate: regular rate Rhythm: regular rhythm GI: Inspection: non-distended Auscultation: normal bowel sounds Skin: General skin exam: normal color and no rashes or lesions noted Neuro: Speech: normal speech Motor exam (neuro): Normal motor muscle tone present throughout Sensory Exam: normal sensation Extrem: General: normal to inspection Psych: Mental Status: mental status grossly normal Affect: normal affect Objective Data Vital Signs Vital Signs: Vital Signs - 24 hr 06/07/25 17:07 06/07/25 18:43 06/07/25 20:00 Temperature Pulse Rate 68 69 Respiratory Rate Blood Pressure 144/70 H Pulse Oximetry Oxygen Delivery 06/07/25 22:00 06/08/25 00:00 06/08/25 04:00 Temperature 97.2 F L Pulse Rate 70 65 66 Respiratory Rate 18 Blood Pressure 151/52 H Pulse Oximetry 96 Oxygen Delivery 06/08/25 06:00 06/08/25 08:00 06/08/25 08:00 Temperature 97.0 F L Pulse Rate 66 73 Respiratory Rate 18 Blood Pressure 140/67 Pulse Oximetry 98 Oxygen Delivery Room Air 06/08/25 08:35 06/08/25 12:00 06/08/25 14:00 Temperature 96.9 F L Pulse Rate 72 73 77 Respiratory Rate 18 Blood Pressure 120/56 L Pulse Oximetry 100 Oxygen Delivery Intake/Output Intake/Output: Intake & Output 06/05/25 06/06/25 06/07/25 06/08/25 23:59 23:59 23:59 23:59 Intake Total 620 790 580 540 Output Total 75 Balance 545 790 580 540 Meds/Results Medications: Active Medications Generic Name Dose Route Start Last Admin Trade Name Freq PRN Reason Stop Dose Admin Acetaminophen 650 mg 06/05/25 14:12 Acetaminophen 325 Mg Tablet PO Q4H PRN Mild Pain (1-3) or Fever Albuterol 2 puff 06/05/25 17:44 Albuterol Sulfate (*Sp) Aerosol 1 Puff INHALATION Q4H PRN Shortness Of Breath Aspirin 325 mg 06/06/25 09:00 06/08/25 08:34 Aspirin 325 Mg Enteric Tablet PO 325 mg QAM ORLY Administration Atorvastatin Calcium 80 mg 06/06/25 09:00 06/08/25 08:34 Atorvastatin 40 Mg Tablet PO 80 mg DAILY ORLY Administration Cyanocobalamin 1,000 mcg 06/06/25 15:10 06/08/25 08:34 Cyanocobalamin 1,000 Mcg Tablet PO 1,000 mcg QAM ORLY Administration Dextrose 12.5 gm 06/05/25 07:21 06/06/25 02:34 Dextrose 50% 25 Gm/50 Ml Syringe IV PUSH 12.5 gm PRN PRN Administration Hypoglycemia Protocol Docusate Sodium 100 mg 06/05/25 17:00 06/08/25 08:34 Docusate Sodium 100 Mg Capsule PO 100 mg BID ORLY Administration Empagliflozin 5 mg 06/09/25 09:00 Empagliflozin 5 Mg Tablet PO DAILY ORLY Famotidine 20 mg 06/06/25 09:00 06/08/25 08:34 Famotidine 20 Mg Tablet PO 20 mg DAILY ORLY Administration Ferrous Sulfate 325 mg 06/06/25 15:10 06/08/25 08:34 Ferrous Sulfate 325 Mg Tablet PO 325 mg DAILY ORLY Administration Fluoxetine HCl 20 mg 06/06/25 09:00 06/08/25 08:34 Fluoxetine Hcl 20 Mg Capsule PO 20 mg DAILY ORLY Administration Folic Acid 1 mg 06/06/25 15:10 06/08/25 08:34 Folic Acid 1 Mg Tablet PO 1 mg DAILY ORLY Administration Glucose 15 gm 06/05/25 07:21 Glucose Oral Gel 15 Gm Of Glucse In 37.5 Gm Tube PO PRN PRN Hypoglycemia Protocol Dextrose 1,000 mls @ 100 mls/hr 06/05/25 07:21 Dextrose 5% 1,000 Ml IVPB PRN PRN Hypoglycemia Protocol Levothyroxine Sodium 100 mcg 06/06/25 06:30 06/08/25 05:32 Levothyroxine Sodium 100 Mcg Tablet PO 100 mcg DAILY@0630 ORLY Administration Metoprolol Tartrate 12.5 mg 06/06/25 09:00 06/08/25 08:35 Metoprolol Tartrate 12.5 Mg Tablet PO 12.5 mg BID ORLY Administration Sodium Zirconium Cyclosilicate 5 gm 06/07/25 16:10 06/08/25 15:59 Sodium Zirconium Cyclosilicate 5 Gm Powd.Pack PO 5 gm TID@1000,1500,2200 ORLY Administration Spironolactone 25 mg 06/06/25 09:00 06/07/25 08:44 Spironolactone 25 Mg Tablet PO 25 mg On Hold: 06/07/25 11:17 DAILY ORLY Administration Radiology Results: ITS Impressions Chest X-Ray 06/05/25 13:14 Impression: CHF Labs Labs: Laboratory Results - last 24 hr 06/07/25 06/07/25 06/07/25 16:49 21:15 22:13 Sodium 134 L Potassium 4.5 Chloride 106 Carbon Dioxide 18 L Anion Gap 10 BUN 30 H Creatinine 1.53 H Estim Creat Clear Calc 20 Estimated GFR 32 L Glucose 257 H POC Capillary Glucose 175 H 286 H Calcium 8.6 Magnesium 06/08/25 06/08/25 06/08/25 00:11 05:32 06:12 Sodium 135 L Potassium 4.6 Chloride 107 Carbon Dioxide 18 L Anion Gap 10 BUN 26 H Creatinine 1.26 H Estim Creat Clear Calc 24 Estimated GFR 40 L Glucose 130 H POC Capillary Glucose 196 H 146 H Calcium 8.6 Magnesium 2.0 06/08/25 06/08/25 07:53 11:28 Sodium Potassium Chloride Carbon Dioxide Anion Gap BUN Creatinine Estim Creat Clear Calc Estimated GFR Glucose POC Capillary Glucose 134 H 195 H Calcium Magnesium Quality VTE Prophylaxis VTE prophylaxis: mechanical ordered
[2025-06-09] VITALS: PULSE 62
[2025-06-09 04:00] VITALS: PULSE 61
[2025-06-09 04:16] VITALS: BP 132/66; PULSE 79; RESP 18; TEMP 36.8; O2SAT 97
[2025-06-09 05:59] LABS: Hematocrit 26.0 % (37.0-47.0); Hemoglobin 7.7 g/dL (12.0-15.0); Mean Corpuscular HGB Conc 29.6 g/dl (32-36); Mean Corpuscular Hemoglobin 24.0 pg (26-34); Mean Corpuscular Volume 81.0 fl (80-100); Platelet Count Result 215 k/mm3 (150-375); Red Blood Count 3.21 M/mm3 (4.2-5.4); White Blood Count 6.4 K/mm3 (4.5-10.0)
[2025-06-09] MEDS: LEVOTHYROXINE SODIUM 100 MCG TABLET PO (05:59)
[2025-06-09 06:30] LABS: Anion Gap 10 mmol/L (4-12); Blood Urea Nitrogen 31 mg/dL (7-17); Calcium 8.4 mg/dL (8.4-10.2); Carbon Dioxide 18 mmol/L (22-30); Chloride 106 mmol/L (98-107); Estimated CRCL calculation 21 ml/min; Estimated Glomerular Filt Rate 36; Glucose 129 mg/dL (65-110); Potassium 4.6 mmol/L (3.4-5.0); Sodium 134 mmol/L (137-145)
[2025-06-09 08:01] VITALS: PULSE 71
[2025-06-09] MEDS: ASPIRIN 325 MG ENTERIC TABLET PO (08:58)
[2025-06-09] MEDS: DOCUSATE SODIUM 100 MG CAPSULE PO (08:58)
[2025-06-09 08:59] VITALS: PULSE 71
[2025-06-09] MEDS: FAMOTIDINE 20 MG TABLET PO (08:59)
[2025-06-09] MEDS: METOPROLOL TARTRATE 12.5 MG TABLET PO (08:59)
[2025-06-09] MEDS: ATORVASTATIN 40 MG TABLET 80 MG PO (08:59)
[2025-06-09] MEDS: CYANOCOBALAMIN 1,000 MCG TABLET 1000 MCG PO (08:59)
[2025-06-09] MEDS: EMPAGLIFLOZIN 5 MG TABLET PO (08:59)
[2025-06-09] MEDS: FERROUS SULFATE 325 MG TABLET PO (08:59)
[2025-06-09] MEDS: FOLIC ACID 1 MG TABLET PO (09:00)
[2025-06-09] MEDS: SODIUM ZIRCONIUM CYCLOSILICATE 5 GM POWD.PACK PO (11:04)
--- NOTE | 2025-06-09 11:33 | PM.DS ---
DS: Admitting Diagnosis Discharge Date 06/09/2025 Admitting Diagnosis Electrolyte imbalance DS: Discharge Diagnosis Discharge Diagnosis (1) Type 2 diabetes mellitus: Code(s): E11.9 - Type 2 diabetes mellitus without complications Status: Acute Assessment and Plan: -hold anti glycemic for now. 06/08: BS has been trending baseline high. Will re-introduce Jardiance back in tomorrow AM. -Will continue to hold metformin & glimepiride as her blood sugars have been low and her kidney function has also been low (2) Hypoglycemia: Code(s): E16.2 - Hypoglycemia, unspecified Status: Acute Assessment and Plan: -severe on admission, causing altered mental status. Now resolved. Dextrose infusion discontinued. -continue to hold anti diabetic medications. Patient tells me she usually eats well but her daughter at bedside tells me she does not much at all. Dietary supplements added -Accu-Cheks a.c. HS. -See above (3) Anemia: Code(s): D64.9 - Anemia, unspecified Status: Acute Assessment and Plan: -continue to monitor, stool occult pending. -iron, vitamin B12, folate all low normal. Started iron, folic acid, vitamin B12 on 06/06/2025, will continue on D/C (4) Diastolic dysfunction: Code(s): I51.89 - Other ill-defined heart diseases Status: Acute Assessment and Plan: -compensated, continue to monitor volume status. -holding spironolactone due to hyperkalemia (5) Atrial fibrillation: Code(s): I48.91 - Unspecified atrial fibrillation Status: Acute Assessment and Plan: -continue metoprolol -follow-up outpatient setting for further discussions of possible Watchman device implantation -not on Eliquis due to fall risk, anemia, internal bleeding hemorrhoids -continue [employer] aspirin 325 mg p.o. q.day (6) CKD (chronic kidney disease): Code(s): N18.9 - Chronic kidney disease, unspecified Status: Acute Assessment and Plan: -stable at her baseline, continue to monitor -Continue to home metformin & glimepiride (7) Hypothyroidism: Code(s): E03.9 - Hypothyroidism, unspecified Status: Acute Assessment and Plan: -continue levothyroxine (8) Hyperkalemia: Code(s): E87.5 - Hyperkalemia Status: Resolved Assessment and Plan: -potassium 5.7 on 06/07/2025. Multifactorial: CKD, spironolactone, beta-kika, improved diet -give Lokelma 10 mg p.o. x1. Continue to monitor BMP. Will not give dextrose with insulin due to admitting issue of hypoglycemia. If having further difficulty controlling hyperkalemia may have to hold beta-kika as well. 06/08: Stable lab at 4.6, will continue to give lokelma until lab recheck tomorrow Plan Discharge back to facility with repeat labs and prompt PCP appt. DS: Summary Hospital Course Reason for hospitalization: Electrolyte imbalance Hospital Course: 84-year-old female past medical history of cirrhosis, diastolic dysfunction, diabetes on oral medications, pulmonary hypertension, hypertension, hyperlipidemia and atrial fibrillation presents to the hospital with altered mental status. According to the ED note the patient was found unresponsive the morning of 06/05 and an EMS was called for possible stroke. For EMS patient's blood sugar was 39 and she received D10. Patient had returned to her normal mental status. Pt had apparently continued taking her DM medication the night before without eating dinner. Lab work in the ED shows anemia at 8.6, sodium of 136, carbon dioxide 19 anion gap 13, BUN of 33, creatinine of 1.89 baseline appears to be around 1.4, influenza A/B, RSV, COVID negative. Chest x-ray shows moderate pulmonary edema, last echo was on 10/22/2024 with EF of 65-70%. Patient did have issue of hypoglycemia on the floor was given 1 amp of D50 and started on D5. While inpatient, pt with an episode of hyperkalemia on 06/07. Multifactorial, likely due to combination of CKD, spironolactone rx, beta-kika rx, improved diet. Pt was given Lokelma 10 mg p.o. x1 and continued on 06/08 5mg TID. Resolved per BMP. On 06/09 pt reports feeling back to baseline. Pt discharged with iron, vitamin B12, and folate due to her low normal values on all as well as the plan for holding her oral DM glimepiride, metformin, and spironolactone due to her hypoglycemia and decreased kidney function. Pt to continue to take her Jardiance. Pt with prompt CMP redraw and PCP (@[facility]) visit to monitor all above and HyperK as well as her scheduled cards appt on 06/12. Status at Discharge Overall status at discharge: patient is back to baseline Time Spent with Patient Time attestation: Total time spent providing and/or coordinating discharge services: 40 Exam Narrative: General: well appearing, appears stated age. HEENT: normocephalic, atraumatic. Mucous membranes moist. EOMI, PERRLA, bilateral sclera anicteric, no conjunctival injection. Neck supple without JVD, lymphadenopathy, or bruit. Respiratory: clear to ascultation bilaterally. No rales/rhonic/wheezes. Cardiovascular: Regular rate and rhythm, normal S1-S2 upon ascultation. No murmurs, rubs, or clicks. PMI is nondisplaced, capillary refill less than 3 second. Abdomen: Soft, round, no pulsatile masses, nondistended and nontender. No rebound, no guarding. No CVA tenderness, no hepatosplenomegaly. Bowel sounds present to all four quadrants. No high pitch or tinkling sounds, resonant to percussion. Extremities: No cyanosis, clubbing, or edema present. Pulses are palpable 2/2. Active ROM to all four extremities. Neuro: Alert and orientated x 4. PERRLA. Cranial nerves 2-12 intact without focal deficit. Skin: Warm, dry, and intact, without rash, erythema, or lesion. Psych: pleasant, cooperative, normal speech, normal affect, no hallucinations, no dysarthia Const: General: comfortable and no acute distress Other: A&O x4 HENMT: Face/Nose/Sinus: Normal nares present Mouth: Yes moist mucous membranes Eyes: General: appearance normal, both eyes and all related structures Sclera: sclerae normal Neck: Neck: supple Thyroid: thyroid normal Carotids: no bruits Resp: Effort & Inspection: normal respiratory effort Auscultation: clear to auscultation bilaterally Cardio: Rate: regular rate Rhythm: regular rhythm GI: Inspection: non-distended Auscultation: normal bowel sounds Skin: General skin exam: normal color and no rashes or lesions noted Neuro: Speech: normal speech Motor exam (neuro): Normal motor muscle tone present throughout Sensory Exam: normal sensation Extrem: General: normal to inspection Psych: Mental Status: mental status grossly normal Affect: normal affect DS: Data Data Completed and Pending Completed studies during hospitalization: CXR, labs, urine Labs on day of discharge: Labs from last 24 hours 06/09/25 06/09/25 06/08/25 08:27 05:18 20:23 WBC 6.4 RBC 3.21 L Hgb 7.7 L Hct 26.0 L MCV 81.0 MCH 24.0 L MCHC 29.6 L RDW 14.7 H Plt Count 215 MPV 9.7 Sodium 134 L Potassium 4.6 Chloride 106 Carbon Dioxide 18 L Anion Gap 10 BUN 31 H Creatinine 1.39 H Estim Creat Clear Calc 21 Estimated GFR 36 L Glucose 129 H POC Capillary Glucose 147 H 223 H Calcium 8.4 06/08/25 06/08/25 16:56 11:28 WBC RBC Hgb Hct MCV MCH MCHC RDW Plt Count MPV Sodium Potassium Chloride Carbon Dioxide Anion Gap BUN Creatinine Estim Creat Clear Calc Estimated GFR Glucose POC Capillary Glucose 163 H 195 H Calcium Discharge Plan Discharge Attending physician on discharge: Rao Pak Consulting providers: Dianna Shirley; Ellyn aDvis; Geraldine Jaime; Isidro Parsons Discharging Clinician: Dianna Shirley Anticipated Discharge Date/Time: 06/09/25 16:00 Patient Disposition: NH Longterm/Asst Living Activity: may shower Diet: diabetic and renal Discharge Instructions: 1. Continue to hold your glipizide and metformin due to low blood sugars and low kidney function, be sure to follow up with your primary care provider for these medications. 2. Continue to hold your spironolactone as this may have contributed to your high levels of potassium. -->Continue to hold all of these medications until you have a follow-up appointment with your primary care provider. 3. As we discussed, I would like for you to have your potassium lab drawn within the next week. If you get into your primary care providers office before that, they may draw more labs so you could wait for that, IF you get an appointment within the week. They should be able to get you in if you told them that you were recently discharged from the hospital. 4. I am also sending you prescriptions for folate, b12, and iron as you are low in these levels. Your primary care provider will also recheck these levels and manage your anemia. Continue to check your blood pressure and blood sugar at home if applicable. Keep your scheduled appts with your primary care provider and any specialist that you may see. Return to the emergency department if you develop sudden shortness of breath, chest pain, a fever of greater than 101.5, or nausea, vomiting, abd pain, or diarrhea that does not go away. Follow-up with your primary care provider within 1-2 weeks, they will want to be updated on your inpatient stay in the hospital. Thank you for choosing [facility] for your healthcare needs. Patient Instructions: Antibiotic Form, Chronic Kidney Disease (DC), Hypoglycemia in a Person with Diabetes (DC), Hyperkalemia (DC) Patient Language: Chilean Stand Alone Forms: General Discharge Information Follow-up/Referrals: Benny Wilkes [Other] - 1 Week Discharge Medications: New cyanocobalamin (vitamin B-12) [Vitamin B-12] 1,000 mcg Tablet 1,000 mcg PO QAM 90 Days Qty: 90 0RF folic acid 1 mg Tablet 1 mg PO DAILY 90 Days Qty: 90 0RF ferrous sulfate 325 mg (65 mg iron) Tablet,Delayed Release (Dr/Ec) 325 mg PO DAILY 90 Days Qty: 90 0RF Continued famotidine 20 mg tablet 20 mg PO DAILY docusate sodium 100 mg capsule 100 mg PO BID Qty: 60 2RF magnesium citrate [OneLAX Magnesium Citrate] Solution 300 ml PO ONCE PRN (Reason: constipation) Qty: 296 0RF Rx Instructions: as a single dose as needed for 3-4 with BM. Benefiber Sugar Free (dextrin) 3 gram/4 gram powder in packet 1.5 g PO BID PRN (Reason: constipation) Rx Instructions: mix into at least 4 oz water or juice before administering atorvastatin 80 mg tablet 80 mg PO DAILY Jardiance 10 mg Tablet 10 mg PO DAILY 30 Days Qty: 30 0RF albuterol sulfate 90 mcg/actuation HFA aerosol inhaler 2 puff INHALATION Q4H PRN (Reason: Shortness Of Breath) fluoxetine 20 mg capsule 20 mg PO DAILY aspirin 325 mg Tablet,Delayed Release (Dr/Ec) 325 mg PO QAM Qty: 30 0RF sulfamethoxazole-trimethoprim 800-160 mg tablet 1 tablet PO Q12H Qty: 10 0RF levothyroxine [Synthroid] 100 mcg Tablet 100 mcg PO DAILY@0630 30 Days Qty: 30 2RF (DME) blood-glucose meter [OneTouch Ultra2 Meter] [facility] MISCELLANEOUS (DME) OneTouch Ultra Test Strip MISCELLANEOUS metoprolol tartrate 25 mg tablet 12.5 mg PO BID (DME) lancets [Easy Touch Safety Lancets] [address] [facility] MISCELLANEOUS Held glimepiride 2 mg tablet 2 mg PO DAILY Hold Instructions: Resume on 06/16/25. Hold until you see your primary care provider. metformin 500 mg tablet extended release 24 hr 500 mg PO DAILY Hold Instructions: Resume on 06/16/25. Hold until you see your primary care provider. spironolactone 25 mg tablet 25 mg PO DAILY Hold Instructions: Resume on 06/16/25. Hold until you see your primary care provider. Other Ambulatory Orders: Comprehensive Metabolic Panel (Routine) Timeframe: 1 Week Location: Determined by Patient Ordered By: Dianna Shirley Date of admission: 06/05/25 12:47 Primary Care Provider: Benny Wilkes Admitting Provider: Rao Pak Attending physician on admission: Rao Pak Condition: Stable Quality VTE Prophylaxis VTE prophylaxis: mechanical ordered Hospitalist MIPS Heart Failure (Exclusion) Patient has history of Heart Transplant or Left Ventricular Assistive Device?: No IF YES, STOP HERE Heart Failure (Qualifier) Patient has current or prior documentation of LVEF less than or equal to 40%, or mod/servere depressed LVSF?: No IF NO, STOP HERE
[2025-06-09 12:05] VITALS: PULSE 73
== END 2025-06-09 15:30 ==
LOC: ANHED 12:47 → ANH3MEDSUR 13:55
PROVIDERS: General Practice; Nurse Practitioner Gerontology; Admitting Provider Internal Medicine; Emergency Provider Emergency Medicine; Visit Provider Internal Medicine
DX: E11.649 Type 2 diabetes mellitus with hypoglycemia without coma (principal); E87.5 Hyperkalemia; Z86.73 Personal history of transient ischemic attack (TIA), and cerebral infarction without residual deficits; Z85.850 Personal history of malignant neoplasm of thyroid; E78.5 Hyperlipidemia, unspecified; I48.0 Paroxysmal atrial fibrillation; I13.0 Hypertensive heart and chronic kidney disease with heart failure and stage 1 through stage 4 chronic kidney disease, or unspecified chronic kidney disease; N18.9 Chronic kidney disease, unspecified; E89.0 Postprocedural hypothyroidism; D64.9 Anemia, unspecified; I50.30 Unspecified diastolic (congestive) heart failure; Z79.82 Long term (current) use of aspirin; Z79.01 Long term (current) use of anticoagulants; E11.22 Type 2 diabetes mellitus with diabetic chronic kidney disease; Z20.822 Contact with and (suspected) exposure to COVID-19
CPT/HCPCS: 36415; 71045; 80048; 81001; 82607; 82728; 82746; 82948; 83036; 83540; 83550; 83735; 84443; 85014; 85018; 85025; 85027; 87637; 96361; 96374; 96376; 99285; A9270; G0378; J7040; J7042